=== PATIENT | male | born 1975 | race Caucasian/White ===

== ENCOUNTER 2022-08-09 13:02 | Outpatient (OUT) | payer BC, SELFPAY ==
[2022-08-09 14:46] VITALS: BMI 26.4
== END 2022-08-09 13:03 ==
LOC: DE 13:06
PROVIDERS: PCP Internal Medicine; Visit Provider Internal Medicine
DX: E11.9 Type 2 diabetes mellitus without complications (principal); Z79.4 Long term (current) use of insulin
CPT/HCPCS: G0108

== ENCOUNTER 2023-02-26 09:50 | Outpatient (OUT) | payer BC, SELFPAY ==
[2023-02-26 10:17] LABS: Estimated Average Glucose 140 mg/dL; Glycohemoglobin A1C 6.5 % (4.5-6.2)
== END 2023-02-26 09:51 | disposition home or self-care (01) ==
LOC: LAB 09:50
PROVIDERS: PCP Internal Medicine; Visit Provider Internal Medicine
DX: E11.65 Type 2 diabetes mellitus with hyperglycemia (principal)
CPT/HCPCS: 36415; 83036

== ENCOUNTER 2023-03-01 08:47 | Outpatient (OUT) | payer BC, SELFPAY ==
--- OUTSIDE RECORDS SUMMARY | 2023-03-01 08:56 | XMS_ITS | CCD ---
Author Name Unknown Address [address] [place] [address] Organization [facility] Care Team Providers Care Perinatal Instructor Name Role Phone Alvino Rudolph Unavailable Sandie Luther Unavailable DO Jack Ortega Primary Care Provider DO Geo Ray Attending Provider MD Sandie Luther Attending Provider Alvino Rudolph Unavailable Jack Ortega DO Primary Care Provider SANDIE LUTHER Attending Unavailable Jordan, Jack Primary Care Unavailable SANDIE LUTHER Admitting Unavailable SANDIE LUTHER Attending Unavailable Jordan, Jack Primary Care Unavailable SANDIE LUTHER Admitting Unavailable Alvino Rudolph Unavailable Jordan SINGH Jack E Primary Care Provider JORDAN JACK E Primary Care Unavailable Paige Rizzo Referring Unavailable VASHTI LLAMAS Attending Unavailable BALL, JACK E Primary Care Unavailable SHYANNE RODRÍGUEZ Referring Unavailable JORDAN, JACK E Primary Care Unavailable SHYANNE RODRÍGUEZ Attending Unavailable ALVINO RUDOLPH Referring Unavailable BALL, JACK E Primary Care Unavailable DO Jack Ortega Primary Care Provider DO Jack Ortega Attending Provider [phone] Bridget Laird Unavailable Unavailable Raad Cline Unavailable Unavailable Geo Ray Admitting UnavailGeo Calvo Attending Unavailabl e Ball, Jack Primary Care Unavailable Sandie Luther Admitting Unavailable LutherSandie E Attending Unavailable Ball, Jack Primary Care Unavailable Ball, Jack Admitting Unavailable Ball, Jack Primary Care Unavailable Ball, Jack Attending Unavailable NON STAFF Admitting Unavailable NON STAFF Attending Unavailable Jordan, Jack Primary Care Unavailable Alvino Rudolph Admitting Unavailable Alvino Rudolph Attending Unavailable Jordan, Jack Primary Care Unavailable Alvino Rudolph Admitting Unavailable Alvino Rudolph Attending Unavailable Ball, Jack Primary Care Unavailable NON STAFF Attending Provider Unavailable Kirsty Glez Unavailable Unavailable Ball, Jack Unavailable JESSICA, LEE ANN Admitting Unavailable JESSICA, LEE ANN Consulting Unavailable JESSICA, LEE ANN Attending Unavailable BALL, DR TORIBIO Primary Care Unavailable BALL, DR TORIBIO Admitting Unavailable BALL, DR TORIBIO Primary Care Unavailable BALL, DR TORIBIO Attending Unavailable BALL, DR TORIBIO Attending Unavailable BALL, DR TORIBIO Admitting Unavailable BALL, DR TORIBIO Primary Care Unavailable BALL, DR TORIBIO Consulting Unavailable JESSICA, LEE ANN Admitting Unavailable JESSICA, LEE ANN Consulting Unavailable JESSICA, LEE ANN Attending Unavailable BALL, DR TORIBIO Primary Care Unavailable BEDOCS, DO DEMETRIUS Escobar Referring Unavailable UNKNOWN, PCP Primary Care Unavailable Son, Dr. Raad Smith Attending Unavai lable Honpiero, Dr. Devin Gutierres Attending Unavailabl e UNKNOWN, PCP Primary Care Unavailable Son, Dr. Raad Smith Referring Unavai lable Honpiero, Dr. Devin Gutierres Attending Unavailabl e UNKNOWN, PCP Primary Care Unavailable Son, Dr. Raad Smith Referring Unavai lable PCP, Pt States None Referring Unavailable UNKNOWN, PCP Primary Care Unavailable Son, Dr. Raad Smith Attending Unavai labsteff UNKNOWN, PCP Primary Care Unavailable UNKNOWN, PCP Referring Unavailable Son, Dr. Raad Smith Attending Janyvasu Glez, Dr. Kirsty Boyd Attending Unavaila ble UNKNOWN, PCP Referring Unavailable UNKNOWN, PCP Primary Care Unavailable Ball DO, Jack Edward Primary Care Unavail able Feliciano Tillman Attending Unavailable Ball DO, Jack Edward Primary Care Unavail able Feliciano Tillman Attending Unavailable Ball DO, Jack Edward Primary Care Unavail able Feliciano Tillman Attending Unavailable Ball DO, Jack Edward Primary Care Unavail able Sebastian Rios PA-C Attending Unavail able Ball DO, Jack Edward Primary Care Unavail able Feliciano Tillman Attending Unavailable Ball DO, Jack Edward Primary Care Unavail able Sebastian Rios PA-C Attending Unavail able Ball DO, [facility] Unavail able Feliciano Tillman Attending Unavailable Ball DO, [facility] Unavail able Feliciano Tillman Attending Unavailable [place] Attending Unavailable Ball DO, [facility] Unavail able Ball DO, [facility] Consulting Unavail able Amber LEGER, Shivam Consulting Unavailable Ball DO, [facility] Unavail able Feliciano iTllman Attending Unavailable Feliciano Tillman Admitting Unavailable Ball DO, [facility] Consulting Unavail able Blanca DUPONTC, Sebastian Haas Attending Unavail able Brenda AYALA, Gloria Arias Referring Unava ilable Ball DO, [facility] Unavail able Blanca PAJadeC, Sebastian Haas Attending Unavail able Ball DO, [facility] Unavail able LayneFeliciano sol Attending Unavailable Ball DO, [facility] Unavail able [place] sol Attending Unavailable Ball DO, [facility] Unavail able LayneFeliciano sol Attending Unavailable Ball DO, [facility] Unavail able Blanca PA-C, Sebastian Haas Attending Unavail able Ball DO, [facility] Unavail able LayneFeliciano sol Attending Unavailable Ball DO, [facility] Unavail able Blanca PA-C, Sebastian Haas Attending Unavail able Allergies Allergy Classification Reported Allergen(s) Allergy Type Date of Onset Reaction(s) Facility (7 sources) No Alert Propensity to adverse reactions to drug 3 [facility] Medications Current Medications Medication Drug Class(es) Dates Sig (Normalized) Sig (Original) Accu-Chek Advantage Meter (16 sources) Start: 08-08-2022 Start: 08-08-2022 Accu-Chek Adva ntage Meter use as directed for 365 days July, Active ALPRAZolam 0.5 mg oral tablet (20 sources) Benzodiazepine Start: 02-17-2023 take 1 tablet by mouth every eight hours as needed for anxiety ALPRAZolam 0.5 MG TAKE 1 TABLET BY MOUTH EVERY 8 HOURS NEEDED FOR ANXIETY Feb, Active Start: 09-30-2020 take 1 tablet by herbert th every eight hours as needed for anxiety ALPRAZolam 0.5 MG TAKE 1 TABLET BY MOUTH EVERY 8 HOURS NEEDED FOR ANXIETY Aug, Active Start: 09-30-2020 take 0.5 mg by mouth once daily at bedtime Alprazolam Active 0.5 MG PO Daily at bedtime January 30, 2021 1:00am Comment on above: Take 0.5 mg by mouth . amitriptyline hydrochloride 25 mg oral tablet (17 sources) Tricyclic Antidepressant take 1 tablet by mouth every twenty-four hours Amitriptyline HCl 25 MG 1 tablet at bedtime Orally Once a day Active atropine sulfate 0.025 mg / diphenoxylate hydrochloride 2.5 mg oral tablet (20 sources) Anticholinergic, Cholinergic Muscarinic Antagonist, Antidiarrheal Start: 12-03-19 take 1 tablet by mouth every eight hours Lomotil 2.5-0.025 MG 1 tablet Orally tid Nov, Active Start: 12-03-2019 take 1 tablet by herbert th every eight hours Start: 12-03-2019 take 1 tablet by herbert th every six hours Lomotil 2.5-0.025 MG 1 tablet as needed Orally Four times a day for 30 days Nov, Active cefuroxime 250 mg oral tablet (5 sources) Cephalosporin Antibacterial Start: 02-04-2023 take 1 tablet by mouth every twelve hours Cefuroxime Axetil 250 MG 1 tablet Orally every 12 hrs for 7 days Jan, Active cetirizine hydrochloride 10 mg oral tablet (20 sources) Histamine-1 Receptor Antagonist Start: 07-18-2021 take 1 tablet by mouth once daily Cetirizine (Zyrtec) 10 mg Tablet Active 10 MG PO Daily July 18, 2021 12:00am ZyrTEC Allergy A ctive FreeStyle Maicol 2 [employer] (11 sources) Start: 08-28-2022 FreeStyle Libr e 2 [employer] Use to test home BS transcutaneous 6-8x daily for 365 days Aug, Active Start: 08-28-2022 FreeStyle Maicol 2 Sensor - (11 sources) Start: 08-28-2022 FreeStyle Libr e 2 Sensor - Use to test home BS transcutaneous 6-8x daily for 30 days Aug, Active Start: 08-28-2022 1.5 ml fremanezumab-vfrm 150 mg/ml auto-injector (19 sources) Ajovy 225 MG/1.5 ML as directed Subcutaneous monthly Active fremanezumab-vfr m (AJOVY AUTOINJECTOR) 225 mg/1.5 mL auto-injector 1 ml galcanezumab-gnlm 120 mg/ml prefilled syringe (8 sources) Start: 11-16-2022 inject 1 mL by subcutaneous injection every month Emgality 120 MG/ML 1 mL Subcutaneous monthly for 30 days Nov, Active 3 ml insulin glargine 100 unt/ml pen injector (17 sources) Insulin Analog Lantus SoloStar 100 UNIT/ML 50 units Subcutaneous q HS Active Lantus SoloStar 100 UNIT/ML 10 units, increase 2 units every 3 days until FBS Active 3 ml insulin lispro 100 unt/ml pen injector (16 sources) Insulin Analog Start: 08-07-2022 HumaLOG KwikPe n 100 UNIT/ML Per sliding scale Subcutaneous daily at largest meal for 30 days July, Active HumaLOG KwikPen 100 UNIT/ML 15-20 units Subcutaneous twice daily Active inject 1 dose by sub cutaneous injection once at mealtime HumaLOG KwikPen 100 UNIT/ML Per sliding scale, largest dose 6 units Subcutaneous daily at largest meal Active ozempic (0.25 or 0.5 mg/dose) 2 mg/3ml solution pen-injector (1 source) Start: 02-27-2023 Ozempic (0.25 or 0.5 MG/DOSE) 2 MG/3ML 0.25mg Subcutaneous weekly for 28 days Feb, Active SITagliptin 50 mg oral tablet (8 sources) Dipeptidyl Peptidase 4 Inhibitor Start: 10-02-2022 Januvia 50 MG as directed Orally Once a day Sep, Active Completed/Discontinued Medications Medication Drug Class(es) Dates Sig (Normalized) Sig (Original) acetaminophen 500 mg oral tablet (10 sources) acetaminophen (TYLENOL) 500 mg tablet Take 1,300 mg by mouth. 0 Active Comment on above: Take 1,300 mg by herbert th. atenolol 50 mg oral tablet (6 sources) beta-Adrenergic Hung Start: 01-30-2021 End: 07-18-2021 take 50 mg by mouth once daily Atenolol Discontinued 50 MG PO Daily January 30, 2021 1:00am July 18, 2021 11:38am baclofen 20 mg oral tablet (20 sources) gamma-Aminobutyr ic Acid-ergic Agonist Start: 12-05-2021 take 1 tablet by mouth once daily at bedtime baclofen (LIORESAL) 20 mg tablet TAKE 1 TABLET BY MOUTH EVERYDAY AT BEDTIME 0 12/05/2021 Active Start: 03-27-2019 End: 07-18-2021 take 20 mg by mouth at bedtime Baclofen Discontinued 2 0 MG PO Bedtime March 27, 2019 1:00am July 18, 2021 11:38am Baclofen Active Comment on above: TAKE 1 TABLET BY HERBERT EVERYDAY AT BEDTIME benazepril hydrochloride 10 mg oral tablet (20 sources) Angiotensin Converting Enzyme Inhibitor Start: take 1 tablet by mouth once daily benazepril (LOTENSIN) 10 mg tablet Take 10 mg by mouth once daily. 0 11/17/2021 Active Lotensin Active Comment on above: Take 10 mg by mouth once daily. benazepril / hydroCHLOROthiazide (10 sources) Thiazide Diuretic, Angiotensin Converting Enzyme Inhibitor benazepril/hydrochl orothiazide (LOTENSIN HCT ORAL) sugar-free cholestyramine resin 4000 mg powder for oral suspension (5 sources) Bile Acid Sequestrant Start: 03-27-19 End: 01-31-20 take 4 g by mouth once daily Cholestyramine-Aspa rtame Discontinued 4 GM PO Daily March 27, 2019 1:00am January 30, 2021 12:15pm Prevalite 4 GM 1 packet Orally Once a day Active Cholestyramine-Aspartame (Prevalite) 4 gram powder in packet (3 sources) Start: 01-30-2021 End: 07-18-2021 Cholestyramine-Aspartame (Prevalite) 4 gram powder in packet Discontinued 1 EACH PO Daily January 30, 2021 1:00am July 18, 2021 11:38am colesevelam hydrochloride 625 mg oral tablet (11 sources) Bile Acid Sequestrant Start: 01-01-2022 End: 01-25-2022 colesevelam (WELCHOL) 625 mg tablet START WITH 1 TABLET AT BEDTIME THEN INCREASE TO 2 TABLETS IF DIARRHEA PERSISTS 60 tablet 5 01/25/2022 Active Comment on above: Start with 1 tab PO QHS. Increase to 2 tabs if diarrhea persists. START WITH 1 TABLET AT BEDTIME THEN INCREASE TO 2 TABLETS IF DIARRHEA PERSISTS escitalopram 20 mg oral tablet (20 sources) Serotonin Reuptake Inhibitor Start: 08-27-2020 escitalopram oxalate (LEXAPRO) 20 mg tablet Take 20 mg by mouth. 0 08/27/2020 Active Lexapro Active Comment on above: Take 20 mg by mouth. etodolac 400 mg oral tablet (3 sources) Nonsteroidal Anti-inflammatory Drug Start: 2020 End: 2021 take 400 mg by mouth twice daily Etodolac Discontinued 400 MG PO Twice daily January 30, 2021 1:00am July 18, 2021 11:39am glucagon (rdna) 1 mg injection (7 sources) Antihypoglycemic Agent Start: 2022 inject 1 mg intravenously once glucagon (GLUCAGEN) 1 mg/mL injection Inject 1 mg intravenously one time only for 1 dose. For MRI Enterography, Inject 1 mg intravenously, as directed. Slow push at the appropriate time during MRI Scan 1 Each 0 03/13/2022 Active Comment on above: Inject 1 mg intraven ously one time only for 1 dose. For MRI Enterography, Inject 1 mg intravenously, as directed. Slow push at the appropriate time during MRI Scan loratadine 10 mg oral tablet (6 sources) Start: 2020 End: 2021 take 10 mg by mouth once daily Loratadine Discontinued 10 MG PO Daily January 30, 2021 1:00am July 18, 2021 11:39am omeprazole 40 mg delayed release oral capsule (20 sources) Proton Pump Inhibitor Start: 2021 End: 2022 take 1 capsule by mouth once daily omeprazole (PRILOSEC) 40 mg capsule Take 1 capsule by mouth once daily. 90 capsule 3 09/24/2022 Active Comment on above: Take 1 capsule by [facility] once daily. TAKE [address] [facility] ONCE DAILY Merpxehzi-Byghxp-Cw ropine-Scop (3 sources) Start: 2019 End: 2020 take 1 tablet by mouth three times daily Ylirmsuyh-Qsptxw-Jl ropine-Scop Discontinued 1 TAB PO Three times daily March 27, 2019 1:00am January 30, 2021 12:15pm pregabalin 50 mg oral capsule (8 sources) Start: 2021 take 1 capsule by mouth in the morning, then take 1 capsule by mouth at bedtime pregabalin (LYRICA) 50 mg capsule TAKE 1 CAPSULE (50 MG TOTAL) BY MOUTH IN THE MORNING AND 1 CAPSULE (50 MG TOTAL) BEFORE BEDTIME. 0 02/03/2022 Active Comment on above: TAKE 1 CAPSULE (50 M G TOTAL) BY MOUTH IN THE MORNING AND 1 CAPSULE (50 MG TOTAL) BEFORE BEDTIME. 24 hr propranolol hydrochloride 80 mg extended release oral capsule (3 sources) beta-Adrenergic Hung Start: 2019 End: 2020 take 80 mg by mouth once daily Propranolol Discontinued 80 MG PO Daily March 27, 2019 1:00am January 30, 2021 12:16pm rizatriptan 5 mg oral tablet (20 sources) Serotonin-1b and Serotonin-1d Receptor Agonist Start: 2021 rizatriptan (MAXALT) 5 mg tablet TAKE 1 TABLET BY MOUTH AT ONSET OF MIGRAINE MAY REPEAT 1 TAB IN 2HRS IF NEEDED 0 02/12/2022 Active take 1 tablet by herbert th every twenty-four hours Maxalt 10 MG 1 tablet Orally Once a day Active Comment on above: TAKE 1 TABLET BY HERBERT TH AT ONSET OF MIGRAINE MAY REPEAT 1 TAB IN 2HRS IF NEEDED rosuvastatin calcium 20 mg oral tablet (20 sources) HMG-CoA Reductase Inhibitor Start: 09-25-2020 rosuvastatin (CRESTOR) 20 mg tablet Take 20 mg by mouth. 0 09/25/2020 Active Crestor Active Comment on above: Take 20 mg by mouth. Problems Active Problems Problem Classification Problem Date Documented Da te Episodic/Chronic Abdominal pain (18 sources) Abdominal pain; Translations: [Unspecified abdominal pain] Episodic Anxiety disorders (20 sources) Generalized anxiety disorder; Translations: [Generalized anxiety disorder] Chronic Blindness and vision defects (6 sources) Visual disturbance; Translations: [Unspecified visual disturbance] Episodic Diabetes mellitus with complications (20 sources) Type 2 diabetes mellitus; Translations: [Type 2 diabetes mellitus with hyperglycemia] Onset: 3 Chronic Disorders of lipid metabolism (20 sources) Hypercholesterolemia; Translations: [Pure hypercholesterolemia, unspecified] Chronic Esophageal disorders (20 sources) Gastroesophageal reflux disease; Translations: [Gastro-esophageal reflux disease without esophagitis] Chronic Essential hypertension (20 sources) Essential hypertension; Translations: [Essential (primary) hypertension] Chronic Gastritis and duodenitis (6 sources) Gastritis; Translations: [Gastritis, unspecified, without bleeding] Onset: 2 Resolved: 2 Episodic Gastrointestinal hemorrhage (9 sources) Hematochezia; Translations: [Melena] Episodic Mood disorders (18 sources) Recurrent major depression in full remission; Translations: [Major depressive disorder, recurrent, in full remission] Chronic Neoplasms of unspecified nature or uncertain behavior (1 source) Neoplasm of uncertain behavior of skin; Translations: [Neoplasm of uncertain behavior of skin] Episodic Other aftercare (7 sources) Encounter for follow-up examination after completed treatment for conditions other than malignant neoplasm Onset: 3 Episodic Other aftercare (12 sources) Long-term current use of insulin; Translations: [USP (current) use of insulin] Episodic Other aftercare (5 sources) USP (current) use of insulin Episodic Other and unspecified benign neoplasm (1 source) Benign neoplasm of colon, unspecified Onset: 3 Episodic Other gastrointestinal disorders (9 sources) Irritable bowel syndrome; Translations: [Irritable bowel syndrome without diarrhea] Chronic Other gastrointestinal disorders (20 sources) Irritable bowel syndrome with diarrhea; Translations: [Irritable bowel syndrome with diarrhea] Chronic Other gastrointestinal disorders (4 sources) Irritable bowel syndrome with diarrhea Onset: 1 Resolved: 2 Chronic Other gastrointestinal disorders (10 sources) Diarrhea; Translations: [Diarrhea, unspecified] Episodic Other gastrointestinal disorders (9 sources) Swollen abdomen; Translations: [Abdominal distension (gaseous)] Episodic Other gastrointestinal disorders (12 sources) Dysphagia; Translations: [Dysphagia, unspecified] 03-27-2019 Episodic Other gastrointestinal disorders (3 sources) Diarrhea, unspecified; Translations: [Diarrhea, unspecified type] Onset: 1 Resolved: 2 Episodic Other gastrointestinal disorders (1 source) Esophageal dysphagia; Translations: [Other dysphagia] Episodic Other gastrointestinal disorders (1 source) Other dysphagia; Translations: [Esophageal dysphagia] Onset: 3 Episodic Other nervous system disorders (20 sources) Bilateral carpal tunnel syndrome; Translations: [Carpal tunnel syndrome, bilateral upper limbs] Chronic Other nervous system disorders (14 sources) Carpal tunnel syndrome of left wrist; Translations: [Carpal tunnel syndrome, left upper limb] Chronic Other nervous system disorders (1 source) Carpal tunnel syndrome, bilateral upper limbs Onset: 2 Resolved: 2 Chronic Other nervous system disorders (12 sources) Impairment of balance; Translations: [Other abnormalities of gait and mobility] Episodic Other nutritional; endocrine; and metabolic disorders (9 sources) Weight loss; Translations: [Abnormal weight loss] Episodic Other nutritional; endocrine; and metabolic disorders (20 sources) Body mass index 25-29 - overweight; Translations: [Body mass index (BMI) 25.0-25.9, adult] Episodic Other nutritional; endocrine; and metabolic disorders (1 source) Overweight Episodic Other skin disorders (1 source) Skin tag; Translations: [Other hypertrophic disorders of the skin] Episodic Other upper respiratory disease (3 sources) Allergic rhinitis due to pollen; Translations: [Allergic rhinitis due to pollen] Chronic Other upper respiratory disease (1 source) Allergic rhinitis due to pollen Chronic Other upper respiratory infections (1 source) Acute maxillary sinusitis, unspecified Episodic Otitis media and related conditions (2 sources) Unspecified Eustachian salpingitis, left ear; Translations: [Unspecified Eustachian tube disorder, left ear] Episodic Residual codes; unclassified (17 sources) Obstructive sleep apnea syndrome; Translations: [Obstructive sleep apnea (adult) (pediatric)] Chronic Residual codes; unclassified (9 sources) Obstructive sleep apnea (adult) (pediatric); Translations: [OBSTRUCTIVE SLEEP APNEA] Onset: 2 Chronic Residual codes; unclassified (1 source) Idiopathic hypersomnia with long sleep time; Translations: [IDIO HYPERSOMNIA W/LONG SLEEP TIME] Onset: 2 Chronic Residual codes; unclassified (3 sources) No current problems or disability; Translations: [Other specified conditions influencing health status] Onset: 3 Episodic Spondylosis; intervertebral disc disorders; other back problems (20 sources) Cervical spondylosis with radiculopathy; Translations: [Other spondylosis with radiculopathy, cervical region] Onset: 2 Resolved: 2 Chronic Unclassified (1 source) Pain in left hip; Translations: [Pain in left hip] Onset: 3 Unclassified (1 source) R13.10 - Dysphagia, unspecified; Translations: [R13.10 - Dysphagia, unspecified] Onset: 2 Unclassified (1 source) Z01.812 - Encounter for preprocedural laboratory examination; Translations: [Z01.812 - Encounter for preprocedural laboratory examination] Onset: 2 Past or Other Problems Problem Classification Problem Date Documented Da te Episodic/Chronic Esophageal disorders (5 sources) Esophageal disorders Other gastrointestinal disorders (1 source) Fecal urgency Onset: 01-19-2021 Resolved: 01-19-2021 Episodic Other nervous system disorders (1 source) Other abnormalities of gait and mobility Onset: 10-17-2021 Resolved: 10-17-2021 Episodic Other nervous system disorders (1 source) Ataxia, unspecified; Translations: [Ataxia, unspecified] Onset: 10-02-2021 Episodic Spondylosis; intervertebral disc disorders; other back problems (8 sources) Low back pain; Translations: [Low back pain, unspecified back pain laterality, unspecified chronicity, unspecified whether sciatica present] Onset: 10-17-2021 Resolved: 10-17-2021 Episodic Unclassified (2 sources) Low back pain, unspecified back pain laterality, unspecified chronicity, unspecified whether sciatica present M54.50 Onset: 10-17-2021 Resolved: 10-17-2021 Results Test Name Value Interpretation Reference Range Facility XR Spine Lumbosacral 2 or 3 [facility] 01-05-2023 XR Spine Lumbosacral 2 or 3 Views EXAM: XR Spine Lumbosacral 2 or 3 Views REASON FOR EXAM: Postop fusion. TECHNIQUE: 2 views. COMPARISON: CT lumbar spine dated 12/07/2022. Lumbar spine radiographs dated 12/07/2022. FINDINGS: Status post L5-S1 posterior fusion. No evidence of procedural complication. Vertebral body heights are preserved. Mild intervertebral disc space height loss at L4/L5 with endplate hypertrophy. No aggressive osseous lesions or bony demineralization. Cholecystectomy clips. IMPRESSION: Status post L5-S1 posterior fusion without evidence of procedural complication. Final Dictated by: Emeterio Wise DO Dictated DT/TM: 01/05/2023 6:47 am Signed by: Emeterio Wise DO Signed (Electronic Signature): 01/05/2023 7:34 am Transcribed DT/TM: 01/05/2023 6:49 (If Report Is Signed, Electronically Signed in Other Vendor System) Normal [facility] Neurosurgery Office/Clinic Elie maya 01-03-2023 Neurosurgery Office/Clinic Note Chief Complaint Patient is being seen for 1 mo post op. History of Present Illness One month post op follow up appointment s/p L5-S1 PLIF on 12/07/2022 No complaint. Off narcotic. He is happy with the result of surgery. No incision concerns. He likes wearing the LSO. He would like to return to work if he can work remotely the next month. 12/24/2022 Visit: He is here for 2-week postoperative appointment. He is s/p L5-S1 PLIF on 12/07/2022. He is doing very well since surgery. The low back pain has resolved. The legs feel much better. He stopped Percocet, developed a rash. He is only using Tylenol for pain, states he does not need anything else. No bladder or bowel issues, no fevers, no drainage from the incision. He feels about 80% improvement so far, mentioned several times that he is very happy he had the surgery. Review of Systems General Adult ROS Fatigue: Yes Weakness: Yes Cardiovascular EENMT Gastrointestinal Genitourinary Hematologic/Lymphatic Musculoskeletal Back pain: Yes Other Musculoskeletal: No Neurological Numbness: No Psychiatric Respiratory Skin Physical Exam Vitals & Measurements HR: 72 (Peripheral) BP: 126/76 HT: 190.5 cm WT: 93.6 kg WT: 93.6 kg (Dosing) BMI: 25.79 Additional Vitals BP Position/Location: Sitting, Left arm General: Alert and oriented, well nourished, no acute distress Eye: PERRL, EOMI, normal conjunctiva HENT: Normocephalic, clear tympanic membranes, normal hearing, moist oral mucosa, no scleral icterus, no sinus tenderness Neck: Supple, non-tender, no carotid bruits, no JVD, no lymphadenopathy Lungs: Clear to auscultation and percussion, non-labored respiration Heart: Normal rate, regular rhythm, no murmur, gallop or edema Abdomen: Soft, non-tender, non-distended, normal bowel sounds, no masses]. Musculoskeletal: [Normal range of motion and strength, no tenderness or swelling Skin: Skin is warm, dry and pink, no rashes or lesions Psychiatric: Cooperative, appropriate mood and affect Neurologic: EOMI, PERRLA, TML, FS, No drift 5/5 hailey UE strength 5/5 hailey LE strength incision looks great Clonus absent Assessment/Plan Assessment: 1. s/p L5-S1 PLIF 12/07/2022 2. pre op MRI Lumbar 10/27/2021: L5-S1 disc bulge with severe bilateral neuroforaminal stenosis with mass effect on the L5 nerves. L4-5 disc bulge with mild left, moderate right foraminal narrowing. T12-L1 small disc protrusion with mild central canal stenosis. 3. HTN, depression, anxiety, asthma, recent melanoma 4. Chronic neck pain 5. New diagnosis of diabetes - on Lantus, Januvia and insulin ss - last A1C 7.7 Plan: Return to work (remote work for the next month) Follow up in 2 months with lumbar xrays: ap/lat/flex/ex. Time Spent with the Patient I have personally spent 20 minutes on this date, directly related to today's patient visit, including pre and post visit work, for this date of service. Time listed does not include time spent on separately billable services. Problem List/Past Medical History Ongoing Abnormal EKG Acid reflux Adverse effect of anesthesia Anxiety Anxiety disorder Asthma Back pain Carpal tunnel syndrome Depression Diabetes Hip pain Hypercholesteremia Hypertension Irritable bowel syndrome Melanoma Migraines Neck pain DIANA (obstructive sleep apnea) PONV (postoperative nausea and vomiting) Sacroiliac joint pain Seasonal allergies Spinal stenosis in cervical region Spinal stenosis of lumbar region Spondylosis Type 1 diabetes mellitus Historical Chest pain Palpitation Pericarditis Procedure/Surgical History hydrocele excision/repair (2007) Inguinal Hernia Repair (2007) Hydrocelectomy (09/09/2007) Repair of right inguinal hernia (09/09/2007) Lymph node dissection (2011) REMOVAL OF GALLBLADDER (2011) Umbilical hernia repair (2011) Excision of Right Inguinal Lymphatic, Open Approach, Diagnostic (09/09/2011) Injection steroid EPI 1 with sedation (11/30/2016) Injection sacroiliac nerve (12/21/2016) Injection sacroiliac nerve: left (01/18/2017) Radiofrequency ablation spinal (03/15/2017) Injection block nerve medial branch (11/04/2020) Injection block nerve medial branch (12/16/2020) Radiofrequency ablation spinal (01/27/2021) Injection block sacroiliac joint (01/12/2022) Colonoscopic polypectomy (03/13/2022) Endoscopy of upper gastrointestinal tract and dilation of esophageal stricture (03/13/2022) Injection block epidural caudal steroid (04/20/2022) INJECTION TREATMENT OF NERVE (06/07/2022) Injection spine transforaminal (06/08/2022) MOHS 1 STAGE H/N/HF/G (06/28/2022) Fusion Spine Lumbar Posterior with Navigation (12/07/2022) Medications baclofen 20 mg oral tablet, 20 mg= 1 tabs, Oral, HS (at bedtime) benazepril 10 mg oral tablet, 10 mg= 1 tabs, Oral, qAM Crestor 20 mg oral tablet, 20 mg= 1 tabs, Oral, HS (at bedtime) docusate sodium 100 mg oral capsule, 100 mg, Oral, B (more content not included)... Normal [facility] Neurosurgery Office/Clinic N oteon 12-24-2022 Neurosurgery Office/Clinic Note Chief Complaint Patient is being seen for 2 week post op. History of Present Illness He is here for 2-week postoperative appointment. He is s/p L5-S1 PLIF on 12/07/2022. He is doing very well since surgery. The low back pain has resolved. The legs feel much better. He stopped Percocet, developed a rash. He is only using Tylenol for pain, states he does not need anything else. No bladder or bowel issues, no fevers, no drainage from the incision. He feels about 80% improvement so far, mentioned several times that he is very happy he had the surgery. Review of Systems General Adult ROS Fatigue: Yes Weakness: Yes Cardiovascular EENMT Gastrointestinal Genitourinary Hematologic/Lymphatic Musculoskeletal Back pain: No Other Musculoskeletal: No Neurological Numbness: No Psychiatric Respiratory Skin Physical Exam Vitals & Measurements HR: 72 (Peripheral) BP: 132/74 HT: 190.5 cm WT: 93.6 kg WT: 93.6 kg (Dosing) BMI: 25.79 Additional Vitals BP Position/Location: Sitting, Right arm General: Alert and oriented, well nourished, no acute distress. Eye: Normal conjunctiva, no scleral icterus. HENT: Normocephalic, atraumatic, oral mucosa pink and moist. Pulmonary: Non-labored respiration Skin: Normal temperature, turgor, and texture; no rashes. Psychiatric: Appropriate judgment and insight, appropriate mood and affect. NEURO EXAM: Pupils are equal Face is symmetric. Hearing is intact. Motor: Lower Extremity Strength: 5/5 Gait: Posture is normal. Gait is steady. Incision: Clean, dry, intact with nena Hortense removed, no surrounding erythema or edema, no signs of infection Assessment/Plan Assessment: 1. S/p L5-S1 PLIF 12/07/2022 2. pre op MRI Lumbar 10/27/2021: L5-S1 disc bulge with severe bilateral neuroforaminal stenosis with mass effect on the L5 nerves. L4-5 disc bulge with mild left, moderate right foraminal narrowing. T12-L1 small disc protrusion with mild central canal stenosis. 3. HTN, depression, anxiety, asthma, recent melanoma 4. Chronic neck pain 5. New diagnosis of diabetes - on Lantus, Januvia and insulin ss - last A1C 7.7 Plan: 1. F/u with Dr Tillman as scheduled with XR lumbar 2. Continue LSO, light activity 3. No lifting >5-10 pounds Time Spent with the Patient I have personally spent 18 minutes on this date, directly related to today's patient visit, including pre and post visit work, for this date of service. Time listed does not include time spent on separately billable services. Problem List/Past Medical History Ongoing Abnormal EKG Acid reflux Adverse effect of anesthesia Anxiety Anxiety disorder Asthma Back pain Carpal tunnel syndrome Depression Diabetes Hip pain Hypercholesteremia Hypertension Irritable bowel syndrome Melanoma Migraines Neck pain DIANA (obstructive sleep apnea) PONV (postoperative nausea and vomiting) Sacroiliac joint pain Seasonal allergies Spinal stenosis in cervical region Spinal stenosis of lumbar region Spondylosis Type 1 diabetes mellitus Historical Chest pain Palpitation Pericarditis Procedure/Surgical History hydrocele excision/repair (2007) Inguinal Hernia Repair (2007) Hydrocelectomy (09/09/2007) Repair of right inguinal hernia (09/09/2007) Lymph node dissection (2011) REMOVAL OF GALLBLADDER (2011) Umbilical hernia repair (2011) Excision of Right Inguinal Lymphatic, Open Approach, Diagnostic (09/09/2011) Injection steroid EPI 1 with sedation (11/30/2016) Injection sacroiliac nerve (12/21/2016) Injection sacroiliac nerve: left (01/18/2017) Radiofrequency ablation spinal (03/15/2017) Injection block nerve medial branch (11/04/2020) Injection block nerve medial branch (12/16/2020) Radiofrequency ablation spinal (01/27/2021) Injection block sacroiliac joint (01/12/2022) Colonoscopic polypectomy (03/13/2022) Endoscopy of upper gastrointestinal tract and dilation of esophageal stricture (03/13/2022) Injection block epidural caudal steroid (04/20/2022) INJECTION TREATMENT OF NERVE (06/07/2022) Injection spine transforaminal (06/08/2022) MOHS 1 STAGE H/N/HF/G (06/28/2022) Fusion Spine Lumbar Posterior with Navigation (12/07/2022) Medications baclofen 20 mg oral tablet, 20 mg= 1 tabs, Oral, HS (at bedtime) benazepril 10 mg oral tablet, 10 mg= 1 tabs, Oral, qAM Crestor 20 mg oral tablet, 20 mg= 1 tabs, Oral, HS (at bedtime) docusate sodium 100 mg oral capsule, 100 mg, Oral, BID Elavil 25 mg oral tablet, 25 mg= 1 tabs, Oral, HS (at bedtime) Emgality Prefilled Syringe, Subcutaneous, qMonth HumaLOG KwikPen 100 units/mL injectable solution Januvia 50 mg oral tablet, 50 mg= 1 tabs, Oral, Daily Lantus Solostar Pen 100 units/mL subcutaneous solution, 50 units, Subcutaneous, HS (at bedtime) Lexapro 20 mg oral tablet, 20 mg= 1 tabs, Oral, HS (at bedtime) Maxalt 10 mg oral tablet, 10 mg= 1 tabs, Oral, Daily, PRN omeprazole 40 mg oral delayed re (more content not included)... Normal [facility] Provider Letteron 12-24-2022 Provider Letter Jack Ortega DO [facility] [place] [address] Re: Donell Dumont Date of Visit: 12/24/2022 Dear Jack Ortega DO, Thank you for allowing me to contribute to the care of your patient: Donell Dumont. Attached is my office note where you will find my assessment and recommendations from our encounter. My office?s contact information: [facility] [address], [phone] Let me know if you have any questions or concerns. Sincerely, LUCY Gonzalez Providers: The following document(s) were included in the letter: December 24, 2022 10:17:25 EDT - (12/24/2022) Neurosurgery Office Visit Note Normal [facility] Inpatient Clinical Summaryon 12-09-2022 Inpatient Clinical Summary [address] [address] Clinical Summary Person Information Name: Donell Dumont Age: 47 Years : 1975 Sex: Male PCP: Jack Ortega DO Marital Status: Phone: PCP: [phone] Race: White Ethnicity: Not or Language: Haitian Visit Id: Visit Reason: Speciality: Acuity: Enc Type: Inpatient Med Service: Surgery Arrival: 12/07/2022 06:51:57 Discharge: Dispo Type: Address: [address] [place] [address] [address] [place] [phone] Diagnosis: Status post lumbar spinal fusion Discharged To: Home Treatments: Devices/Equipment: Professional Skilled Services: Special Services and Community Resources: Mode of Discharge Transportation: Discharge Orders Diet Instruction ADA Diet Discharge Special Instructions You may drive when you are no longer taking pain medication Discharge Special Instructions Do not resume Aspirin, Plavix (Clopidogrel), Coumadin (Warfarin/Jantoven) and other blood thinners for 7 days, but you may resume all other medications. Discharge Special Instructions You may shower, but keep incision site dry for one week. Discharge Wound Care Remove dressing one week after discharge. Replace dressing as needed. Allergies No Known Allergies Functional Status: Sensory Deficits: None History of Falls: None Mobility Assistance Prior to Admission: ADLs: Minimal assistance Gait: Steady Ambulation Assist: Assistive Device: Gait belt, Walker Special Orthopedic Devices: Brace Current Level of Assistance for Self-Care/Mobility: Cognitive Status: Orientation: Orientation Assessment Oriented x 4 Level of Consciousness: Alert Characteristics of Speech: Clear Aspiration Risk: None Affect/Behavior: Appropriate, Calm Laboratory or Other Results This Visit (last charted value for your 12/07/2022 visit) Hematology 12/08/2022 4:07 AM WBC: 10.4 x10 RBC: 4.48 x10 Neutro Auto: 79.4 % -- Normal range between ( 47.2 and 70.8 ) Lymph Auto: 13.5 % -- Normal range between ( 27.2 and 40.8 ) [place] Auto: 6.9 % -- Normal range between ( 4.7 and 13.9 ) Eos Auto: 0.1 % -- Normal range between ( 0.0 and 6.1 ) Basophil Auto: 0.1 % -- Normal range between ( 0.0 and 1.2 ) Baso Absolute: 0.0 x10 MCV: 85.7 fL -- Normal range between ( 80.0 and 100.0 ) MCHC: 34.5 % -- Normal range between ( 31.0 and 37.0 ) Lymph Absolute: 1.4 x10 Hct: 38.4 % -- Normal range between ( 41.0 and 53.0 ) [place] Absolute: 0.7 x10 MCH: 29.6 pg -- Normal range between ( 27.0 and 35.0 ) Neutro Absolute: 8.3 x10 Hgb: 13.2 g/dL -- Normal range between ( 13.5 and 17.5 ) Mean Platelet Volume: 9.2 fL -- Normal range between ( 6.7 and 10.6 ) Platelet: 239 x10 Eos Absolute: 0.0 x10 RDW: 14.0 % -- Normal range between ( 11.6 and 14.8 ) Chemistry 12/08/2022 4:07 AM Creatinine Lvl: 0.79 mg/dL -- Normal range between ( 0.61 and 1.24 ) BUN: 16 mg/dL -- Normal range between ( 8 and 26 ) Glucose Lvl: 131 mg/dL -- Normal range between ( 70 and 99 ) Potassium Lvl: 3.8 mmol/L -- Normal range between ( 3.4 and 4.8 ) Sodium Lvl: 137 mmol/L -- Normal range between ( 133 and 142 ) Calcium Lvl: 8.1 mg/dL -- Normal range between ( 8.5 and 10.3 ) Chloride: 106 mmol/L -- Normal range between ( 98 and 110 ) CO2: 26 mmol/L -- Normal range between ( 22 and 32 ) Anion Gap: 9 -- Normal range between ( 7 and 17 ) Estimated GFR: >60 mL/min/1.73m? BUN Crea Ratio: 20.3 -- Normal range between ( 10.0 and 20.0 ) Blood Bank 11/23/2022 11:58 AM ABO/Rh: O POS Antibody Screen: Negative ABSC POC Testing 12/09/2022 7:27 AM POC Gluc Random: 92 mg/dL -- Normal range between ( 70 and 99 ) Computed Tomography 12/07/2022 12:[address] Spine Lumbar w/o Contrast: CT Spine Lumbar w/o Contrast Diagnostic Radiology 12/07/2022 12:00 PM XR Spine Lumbosacral 4 Views + in OR: XR Spine Lumbosacral 4 Views + in OR Measurements: Height: Weight: Blood Pressure: 116 mmHg / BMI: Respiratory: Respirations: Unlabored, Quiet Respiratory Symptoms: None Cardiovascular: Heart Sounds: Heart Rhythm: Regular Gastrointestinal: GI Symptoms: Bowel Sounds: Present Vital Signs: Temp Axillary: Temp Temporal Artery: 36.6 degC Temp Oral: 36.5 degC Temp Rectal: Apical Heart Rate: Peripheral Pulse Rate: 87 bpm Heart Rate: 72 bpm Respiratory Rate: 16 br/min Diet Diet: Feeding Tolerance: Appetite: Good Sundar Assessment: 20 Procedures No Procedures Documented Immunizations No Immunizations Documented This Visit HERE ARE THE MEDICATION CHANGES THAT OCCURRED DURING YOUR HOSPITAL STAY New Medications [id number], [address], [place] [id number], [phone] docusate (docusate sodium 100 mg oral capsule) 100 Milligram Oral (given by mouth) 2 times a day. Refills: 0. Last Dose: ____ oxyCODO (more content not included)... Normal [facility] Neurosurgery Progress Noteon 12-09-2022 Neurosurgery Progress Note Subjective no leg pain no abd pain Objective 30cc Vitals & Measurements T: 36.5 ?C (Oral) HR: 87 (Peripheral) RR: 16 BP: 116/75 SpO2: 94% HT: 190.5 cm HT: 191 cm WT: 93.6 kg BMI: 26.45 BMI: 26.32 Additional Vitals No qualifying data available. Lab Results Microbiology - Current Encounter No qualifying data available. Diagnostic Results Diagnostic Radiology XR Spine Lumbosacral 4 Views + in OR 12/07/22 13:45:34 [address] CT images of the lumbar spine on 12/07/2022 Findings: limited intraoperative fluoroscopic and CT images obtained during lumbar spine surgery done by Dr. Tillman . Total fluoro time for this procedure is 4 seconds. This dictation is for documentation only. Please refer to the OR report for details. Signed By: Bonnie Stokes MD Computed Tomography CT Spine Lumbar w/o Contrast 12/07/22 13:43:46 IMPRESSION: Postoperative changes compatible with posterior decompression, posterior and interbody fusion at L5-S1 in satisfactory alignment. Signed By: Bonnie Stokes MD Physical Exam 5/5 hailey LE strength Medications Inpatient acetaminophen, 650 mg, Oral, q6hr, PRN ascorbic acid, 500 mg, Oral, q8hr baclofen, 20 mg, Oral, HS (at bedtime) benazepril, 10 mg, Oral, qAM ceFAZolin, 2 g= 50 mL, IV Piggyback, q8hr Crestor, 20 mg, Oral, HS (at bedtime) Dextrose 10% in Water IV Piggyback, 125 mL, IV Piggyback, As Indicated, PRN docusate sodium, 100 mg, Oral, BID Elavil, 25 mg, Oral, HS (at bedtime) famotidine, 20 mg, Oral, BID glucagon, 1 mg, Subcutaneous, As Indicated, PRN insulin aspart MEDIUM dose sliding scale BMI 26-30, See Comments, Subcutaneous, ACHS Lexapro, 20 mg, Oral, HS (at bedtime) linagliptin, 5 mg, Oral, Daily omeprazole, 40 mg, Oral, Daily ondansetron, 4 mg= 2 mL, IV Push, q4hr, PRN oxyCODONE-acetaminoph en 5 mg-325 mg oral tablet, 1 tabs, Oral, q4hr, PRN oxyCODONE-acetaminoph en 5 mg-325 mg oral tablet, 2 tabs, Oral, q4hr, PRN Xanax, 0.5 mg, Oral, TID, PRN ZyrTEC, 10 mg, Oral, qAM Assessment/Plan Status post lumbar spinal fusion assessment: 1. pod 2 L5-S1 PLIF 12/07/22 2. pre op MRI Lumbar 10/27/2021: L5-S1 disc bulge with severe bilateral neuroforaminal stenosis with mass effect on the L5 nerves. L4-5 disc bulge with mild left, moderate right foraminal narrowing. T12-L1 small disc protrusion with mild central canal stenosis. 3. HTN, depression, anxiety, asthma, recent melanoma 4. Chronic neck pain 5. New diagnosis of diabetes - on Lantus, Januvia and insulin ss - last A1C 7.7 Plan: d/c hemovac d/c home Orders: Communication Order Communication Order Electronically signed by Feliciano Tillman MD 12/09/22 06:30 EDT Normal [facility] POC Glucose Randomon 023 Glucose [Mass/Vol] 92 mg/dL Normal 70-99 [facility] Comment on above: Performed By: #### C [id number] #### [place] [address] .eGFRon 12-08-2022 GFR/1.73 sq M.predicted MDRD (S/P/Bld) [Vol rate/Area] mL/min/{1.73_m2} Normal >=60 [facility] Comment on above: Result Comment: [facility] have implemented the eGFR calculation approach that does not have a coefficient for race and that conforms to the NKF-ASN Task Force Recommendations. Stages of Chronic Kidney Disease GFR Stage 3a Mild to moderate loss of kidney function 59 to 45 Stage 3b Moderate to severe loss of kidney function 44 to 33 Stage 4 Severe loss of kidney function 29 to 15 Stage 5 Kidney failure Less than 15 GFR calculated using the CKD-Epi Creatinine Equation (2020): eGFR = 142 X min(SCr/?, 1)? X max(SCr /?, 1)-1.200 X 0.9938Age X 1.012 [if female] Abbreviations/Units: eGFR (estimated glomerular filtration rate) = mL/min/1.73 m2 SCr (standardized serum creatinine) = mg/dL ? = 0.7 (females) or 0.9 (males) ? = -0.241 (females) or -0.302 (males) min = indicates the minimum of SCr/? or 1 max = indicates the maximum of SCr/? or 1 Age = years Performed By: #### A SA #### [address] [address] Basic Metabolic Profileon Anion gap [Moles/Vol] 9 mmol/L Normal 7-17 [facility] Comment on above: Performed By: #### C OMP #### [address] [address] Calcium [Mass/Vol] 8.1 mg/dL Low 8.5-10.3 [facility] Comment on above: Performed By: #### C OMP #### [address] [address] Chloride [Moles/Vol] 106 mmol/L Normal 98-110 [facility] Comment on above: Performed By: #### C OMP #### [address] [address] CO2 [Moles/Vol] 26 mmol/L Normal 22-32 [facility] Comment on above: Performed By: #### C OMP #### [address] [address] Creatinine [Mass/Vol] 0.79 mg/dL Normal 0.61-1.24 [facility] Comment on above: Performed By: #### C OMP #### [address] [address] Glucose [Mass/Vol] 131 mg/dL High 70-99 [facility] Comment on above: Performed By: #### C OMP #### [address] [address] Potassium [Moles/Vol] 3.8 mmol/L Normal 3.4-4.8 [facility] Comment on above: Performed By: #### C OMP #### [address] [address] Sodium [Moles/Vol] 137 mmol/L Normal 133-142 [facility] Comment on above: Performed By: #### C OMP #### [address] [address] Urea nitrogen [Mass/Vol] 16 mg/dL Normal 8-26 [facility] Comment on above: Performed By: #### C OMP #### [address] [address] Urea nitrogen/Creatinine [Mass ratio] 20.3 mg/mg High 10.0-20.0 [facility] Comment on above: Performed By: #### C OMP #### [address] [address] CBC w/ Diffon 12-08-2022 Erythrocyte distribution width (RBC) [Ratio] 14.0 % Normal 11.6-14.8 [facility] Comment on above: Performed By: #### C [id number] #### [address] [address] Hematocrit (Bld) [Volume fraction] 38.4 % Low 41.0-53.0 [facility] Comment on above: Performed By: #### C [id number] #### [address] [address] Hemoglobin (Bld) [Mass/Vol] 13.2 g/dL Low 13.5-17.5 [facility] Comment on above: Performed By: #### C [id number] #### [address] [address] MCH (RBC) [Entitic mass] 29.6 pg Normal 27.0-35.0 [facility] Comment on above: Performed By: #### C [id number] #### [address] [place] [address] MCHC 34.5 % Normal 31.0-37.0 [facility] Comment on above: Performed By: #### C [id number] #### [address] [address] MCV (RBC) [Entitic vol] 85.7 fL Normal 80.0-100.0 [facility] Comment on above: Performed By: #### C [id number] #### [address] [address] Platelet 239 x10*3/mcL Normal 150-450 [facility] Comment on above: Performed By: #### C [id number] #### [address] [address] Platelet mean volume (Bld) [Entitic vol] 9.2 fL Normal 6.7-10.6 [facility] Comment on above: Performed By: #### C [id number] #### [place] [id number] RBC 4.48 x10*6/mcL Normal 4.30-5.80 [facility] Comment on above: Performed By: #### C [id number] #### [address] [address] WBC 10.4 x10*3/mcL Normal 4.5-11.0 [facility] Comment on above: Performed By: #### C [id number] #### [place] [id number] Consultation Note - Generico n 12-08-2022 Consultation Note - Generic Assessment/Plan Assessment: Diabetes mellitus type 2 (A1c 7.7), currently controlled Status post lumbar spinal fusion, POD 0, L5-S1 PLIF (12/07/2022) Abnormal MRI of lumbar spine in 10/27/2021, leading to the above-mentioned Chronic neck and back pain, due to the above-mentioned Other comorbidities: ? Anxiety/depression, asthma, HTN, HLD, IBS, and recent melanoma. Plan: Patient safe for 6 floor Fall precautions on board Ambulate to chair ADA diet ordered Glucose monitoring ACHS Continuing linagliptin and sliding scale insulin (medium dose) Daily weight and strict I/O IV hydration per neurosurgical team Pain/nausea/fever control medications on board per neurosurgical team Home medications reviewed and appropriate ones restarted PT/OT to evaluate and treat per neurosurgical recommendations Neurosurgery's Dr. Tillman treating postop concerns. Intends to discharge patient on Saturday. We will follow along with neurosurgery Time spent: 30 minutes in total. Code Status: Full Resuscitation Plan - Orders Patient Tray, clear liquid tray, 12/07/22 15:11:00 EDT Blood Glucose Monitoring POC, 12/08/22 15:03:00 EDT, ACHS Communication Order, 12/08/22 12:05:00 EDT, Convert Hemovac drain to gravity at 1700, 12/08/22 12:05:00 EDT, 12/08/22 12:05:00 EDT Communication Order, 12/08/22 12:05:00 EDT, heplock IV, 12/08/22 12:05:00 EDT, 12/08/22 12:05:00 EDT Occupational Therapy Additional Treatment Inpatient, 12/08/22 12:39:15 EDT Physical Therapy Additional Treatment Inpatient, 12/08/22 12:26:47 EDT Subjective Visited Mr. Dumont today and examined him at bedside. He is seated in his bedside recliner and AAOx3 feeling much better today. Is pleased that his sugars been well controlled. Not complaining of anything new. Postop pain tolerable. No adverse overnight events reported to me. Vitals & Measurements T: 36.7 ?C (Oral) HR: 72 (Monitored) RR: 16 BP: 116/72 SpO2: 94% HT: 190.5 cm HT: 191 cm WT: 98.6 kg BMI: 26.45 BMI: 26.32 Additional Vitals No qualifying data available. Objective Physical Exam General: AAOx3, patient appears in no acute cardiorespiratory distress. Eye: Normal conjunctiva. HENT: Normocephalic, moist oral mucosa, no scleral icterus. Neck: Supple, non-tender, no lymphadenopathy. Lungs: Clear to auscultation, no crepitations or wheeze. Heart: RRR. S1-S2 is normal. No rubs or gallops. Abdomen: Soft, non-tender, non-distended, normal bowel sounds. Extremities: No cyanosis, clubbing or edema. Skin: Surgical wounds well dressed and dry. Neurologic: Patient does not have any focal deficits. Psychiatric: Calm and cooperative. Lab Results Labs (Last four charted values) WBC 10.4 (SEP 30) Hgb L 13.2 (SEP 30) Hct L 38.4 (SEP 30) Plt 239 (SEP 30) Na 137 (SEP 30) K 3.8 (SEP 30) CO2 26 (SEP 30) Cl 106 (SEP 30) Cr 0.79 (SEP 30) BUN 16 (SEP 30) Microbiology - Current Encounter No qualifying data available. Diagnostic Results Diagnostic Radiology XR Spine Lumbosacral 4 Views + in OR 12/07/22 13:45:34 Intraoperative fluoroscopic and CT images of the lumbar spine on 12/07/2022 Findings: limited intraoperative fluoroscopic and CT images obtained during lumbar spine surgery done by Dr. Tillman . Total fluoro time for this procedure is 4 seconds. This dictation is for documentation only. Please refer to the OR report for details. Signed By: Bonnie Stokes MD Computed Tomography CT Spine Lumbar w/o Contrast 12/07/22 13:43:46 IMPRESSION: Postoperative changes compatible with posterior decompression, posterior and interbody fusion at L5-S1 in satisfactory alignment. Signed By: Bonnie Stokes MD Medications Inpatient acetaminophen, 650 mg, Oral, q6hr, PRN ascorbic acid, 500 mg, Oral, q8hr baclofen, 20 mg, Oral, HS (at bedtime) benazepril, 10 mg, Oral, qAM ceFAZolin, 2 g= 50 mL, IV Piggyback, q8hr Crestor, 20 mg, Oral, HS (at bedtime) Dextrose 10% in Water IV Piggyback, 125 mL, IV Piggyback, As Indicated, PRN docusate sodium, 100 mg, Oral, BID Elavil, 25 mg, Oral, HS (at bedtime) famotidine, 20 mg, Oral, BID glucagon, 1 mg, Subcutaneous, As Indicated, PRN insulin aspart MEDIUM dose sliding scale BMI 26-30, See Comments, Subcutaneous, ACHS Lexapro, 20 mg, Oral, HS (at bedtime) linagliptin, 5 mg, Oral, Daily omeprazole, 40 mg, Oral, Daily ondansetron, 4 mg= 2 mL, IV Push, q4hr, PRN oxyCODONE-acetaminoph en 5 mg-325 mg oral tablet, 1 tabs, Oral, q4hr, PRN oxyCODONE-acetaminoph en 5 mg-325 mg oral tablet, 2 tabs, Oral, q4hr, PRN Xanax, 0.5 mg, Oral, TID, PRN ZyrTEC, 10 mg, Oral, qAM Electronically signed by Shivam Clark MD 12/08/22 15:04 EDT Normal [facility] Diff Autoon 12-08-2022 Baso Absolute 0.0 x10*3/mcL Normal 0.0-0.2 [facility] Comment on above: Performed By: #### C [id number] #### [address] [address] Basophils/100 WBC (Bld) 0.1 % Normal 0.0-1.2 [facility] Comment on above: Performed By: #### C [id number] #### [id number] [place] [address] Eos Absolute 0.0 x10*3/mcL Normal 0.0-0.4 [facility] Comment on above: Performed By: #### C [id number] #### [id number] [place] [address] Eosinophils/100 WBC (Bld) 0.1 % Normal 0.0-6.1 [facility] Comment on above: Performed By: #### C [id number] #### [id number] [place] [address] Lymph Absolute 1.4 x10*3/mcL Normal 1.0-4.8 [facility] Comment on above: Performed By: #### C [id number] #### [address] [address] Lymphocytes/100 WBC (Bld) 13.5 % Low 27.2-40.8 [facility] Comment on above: Performed By: #### C [id number] #### [address] [address] [place] Absolute 0.7 x10*3/mcL Normal 0.3-1.1 [facility] Comment on above: Performed By: #### C [id number] #### [address] [address] Monocytes/100 WBC (Bld) 6.9 % Normal 4.7-13.9 [facility] Comment on above: Performed By: #### C [id number] #### [address] [address] Neutro Absolute 8.3 x10*3/mcL High 1.8-7.7 [facility] Comment on above: Performed By: #### C [id number] #### [address] [address] Neutro Auto 79.4 % High 47.2-70.8 [facility] Comment on above: Performed By: #### C [id number] #### [address] [address] Neurosurgery Progress Noteon 12-08-2022 Neurosurgery Progress Note Subjective no complaint he has a wheeled walker at home no leg pain Objective hemovac output 60cc Vitals & Measurements T: 36.7 ?C (Oral) HR: 72 (Monitored) RR: 16 BP: 116/72 SpO2: 94% HT: 190.5 cm HT: 191 cm WT: 98.6 kg BMI: 26.45 BMI: 26.32 Additional Vitals No qualifying data available. Lab Results Microbiology - Current Encounter No qualifying data available. Diagnostic Results Diagnostic Radiology XR Spine Lumbosacral 4 Views + in OR 12/07/22 13:45:34 [address] images of the lumbar spine on 12/07/2022 Findings: limited intraoperative fluoroscopic and CT images obtained during lumbar spine surgery done by Dr. Tillman . Total fluoro time for this procedure is 4 seconds. This dictation is for documentation only. Please refer to the OR report for details. Signed By: Bonnie Stokes MD Computed Tomography CT Spine Lumbar w/o Contrast 12/07/22 13:43:46 IMPRESSION: Postoperative changes compatible with posterior decompression, posterior and interbody fusion at L5-S1 in satisfactory alignment. Signed By: Bonnie Stokes MD Physical Exam 07/13 hailey LE strength Medications Inpatient acetaminophen, 650 mg, Oral, q6hr, PRN ascorbic acid, 500 mg, Oral, q8hr baclofen, 20 mg, Oral, HS (at bedtime) benazepril, 10 mg, Oral, qAM ceFAZolin, 2 g= 50 mL, IV Piggyback, q8hr Crestor, 20 mg, Oral, HS (at bedtime) Dextrose 10% in Water IV Piggyback, 125 mL, IV Piggyback, As Indicated, PRN docusate sodium, 100 mg, Oral, BID Elavil, 25 mg, Oral, HS (at bedtime) famotidine, 20 mg, Oral, BID glucagon, 1 mg, Subcutaneous, As Indicated, PRN insulin aspart MEDIUM dose sliding scale BMI 26-30, See Comments, Subcutaneous, ACHS Lexapro, 20 mg, Oral, HS (at bedtime) linagliptin, 5 mg, Oral, Daily omeprazole, 40 mg, Oral, Daily ondansetron, 4 mg= 2 mL, IV Push, q4hr, PRN oxyCODONE-acetaminoph en 5 mg-325 mg oral tablet, 1 tabs, Oral, q4hr, PRN oxyCODONE-acetaminoph en 5 mg-325 mg oral tablet, 2 tabs, Oral, q4hr, PRN Xanax, 0.5 mg, Oral, TID, PRN ZyrTEC, 10 mg, Oral, qAM Assessment/Plan Status post lumbar spinal fusion assessment: 1. pod 1 L5-S1 PLIF 12/07/22 2. pre op MRI Lumbar 10/27/2021: L5-S1 disc bulge with severe bilateral neuroforaminal stenosis with mass effect on the L5 nerves. L4-5 disc bulge with mild left, moderate right foraminal narrowing. T12-L1 small disc protrusion with mild central canal stenosis. 3. HTN, depression, anxiety, asthma, recent melanoma 4. Chronic neck pain 5. New diagnosis of diabetes - on Lantus, Januvia and insulin ss - last A1C 7.7 Plan: hemovac to gravity this evening hwiv d/c dilaudid likely home tomorrow Orders: Communication Order Communication Order Electronically signed by Feliciano Tillman MD 12/08/22 16:07 EDT Normal [facility] POC Glucose Randomon 023 Glucose [Mass/Vol] 105 mg/dL High 70-99 [facility] Comment on above: Performed By: #### A SA #### [address] [address] Glucose [Mass/Vol] 99 mg/dL Normal 70-99 [facility] Comment on above: Performed By: #### C OMP #### [address] [address] Glucose [Mass/Vol] 127 mg/dL High 70-99 [facility] Comment on above: Performed By: #### C OMP #### [address] [address] [address] Spine Lumbar w/o Contrast on 12-07-2022 CT Spine Lumbar w/o Contrast CT lumbar spine without contrast on 12/07/[address] study was performed using one or more of the following dose reduction techniques: automated exposure control, adjustment of the mA and/or kV according to patient's size and/or use of iterative reconstruction technique. Clinical history: Postoperative evaluation. Comparison: Lumbar spine MRI on 10/27/2021 Findings: There is normal lordosis of the lumbar spine. The vertebral heights are well-maintained. There is no evidence of fractures or malalignment. Postoperative changes compatible with posterior decompression, posterior and interbody fusion at L5-S1 in satisfactory alignment. Mild endplate changes and mild to moderate disc bulge and facet arthropathy at L4-L5. Mild bilateral facet arthropathy at L3/L4. IMPRESSION: Postoperative changes compatible with posterior decompression, posterior and interbody fusion at L5-S1 in satisfactory alignment. Final Dictated by: Bonnie Stokes MD Dictated DT/TM: 12.07.2022 1:36 pm Signed by: Bonnie Stokes MD Signed (Electronic Signature): 12.07.2022 1:43 pm (If Report Is Signed, Electronically Signed in Other Vendor System) Normal [facility] Consultation Note - Generico n 12-07-2022 Consultation Note - Generic Chief Complaint Jan for: (L5-S1 ) Laminectomy Fixation Fusion and PLIF Assessment/Plan Assessment: Diabetes mellitus type 2 (A1c 7.7), currently controlled Status post lumbar spinal fusion, POD 0, L5-S1 PLIF (12/07/2022) Abnormal MRI of lumbar spine in 10/27/2021, leading to the above-mentioned Chronic neck and back pain, due to the above-mentioned Other comorbidities: ? Anxiety/depression, asthma, HTN, HLD, IBS, and recent melanoma. Plan: Patient safe for 6 floor Fall precautions on board Ambulate to chair ADA diet ordered Daily weight and strict I/O IV hydration per neurosurgical team Pain/nausea/fever control medications on board per neurosurgical team Home medications reviewed and appropriate ones restarted PT/OT to evaluate and treat per neurosurgical recommendations Neurosurgery's Dr. Tillman treating postop concerns. Intends to discharge patient on Saturday. We will follow along with neurosurgery Time spent: 45 minutes in total. Code Status: Full Resuscitation History of Present Illness Patient is a 47-year-old male with a PMHx of anxiety/depression, asthma, diabetes mellitus type 2, HTN, HLD, IBS, recent melanoma, and chronic back pain due to multiple issues is in the hospital as a patient of Dr. Tillman (neurosurgery) for lumbar spinal fusion of L5-S1 PLIF 12/07/2022 due to severe bilateral neuroforaminal stenosis with mass effect on the L5 nerves and L4-5 disc bulge with mild left moderate right foraminal narrowing. Patient seems to be doing well and complaining of appropriate postop discomfort, however we were consulted for diabetes management at this time. It appears that patient's family doctor told him he thinks he has late onset diabetes type 1, as the onset was too fast. I believe this might be diabetes type 2, however proper endocrinological work-up is necessary in this case. Either way, the patient is well controlled on his current medications. Recommend outpatient follow-up with [employer] worker. Review of Systems A 10-point review of system was conducted with the patient and negative, except for what has been mentioned above in HPI. Objective Physical Exam General: AAOx3, patient appears in no acute cardiorespiratory distress. Eye: Normal conjunctiva. HENT: Normocephalic, moist oral mucosa, no scleral icterus. Neck: Supple, non-tender, no lymphadenopathy. Lungs: Clear to auscultation, no crepitations or wheeze. Heart: RRR. S1-S2 is normal. No rubs or gallops. Abdomen: Soft, non-tender, non-distended, normal bowel sounds. Extremities: No cyanosis, clubbing or edema. Skin: Surgical wounds well dressed and dry. Neurologic: Patient does not have any focal deficits. Psychiatric: Calm and cooperative. Vitals & Measurements T: 36.4 ?C (Oral) TMIN: 36 ?C (Temporal Artery) TMAX: 36.6 ?C (Temporal Artery) HR: 102 (Peripheral) RR: 16 BP: 141/89 SpO2: 92% HT: 190.5 cm HT: 191 cm WT: 96.0 kg WT: 95.9 kg (Dosing) BMI: 26.45 BMI: 26.32 Additional Vitals No qualifying data available. Problem List/Past Medical History Ongoing Abnormal EKG Acid reflux Adverse effect of anesthesia Anxiety Anxiety disorder Asthma Back pain Carpal tunnel syndrome Depression Diabetes Hip pain Hypercholesteremia Hypertension Irritable bowel syndrome Melanoma Migraines Neck pain DIANA (obstructive sleep apnea) PONV (postoperative nausea and vomiting) Sacroiliac joint pain Seasonal allergies Spinal stenosis in cervical region Spinal stenosis of lumbar region Spondylosis Type 1 diabetes mellitus Historical Chest pain Palpitation Pericarditis Procedure/Surgical History hydrocele excision/repair (2007) Inguinal Hernia Repair (2007) Hydrocelectomy (09/09/2007) Repair of right inguinal hernia (09/09/2007) Lymph node dissection (2012) REMOVAL OF GALLBLADDER (2011) Umbilical hernia repair (2011) Excision of Right Inguinal Lymphatic, Open Approach, Diagnostic (09/09/2011) Injection steroid EPI 1 with sedation (11/30/2016) Injection sacroiliac nerve (12/21/2016) Injection sacroiliac nerve: left (01/18/2017) Radiofrequency ablation spinal (03/15/2017) Injection block nerve medial branch (11/04/2020) Injection block nerve medial branch (12/16/2020) Radiofrequency ablation spinal (01/27/2021) Injection block sacroiliac joint (01/12/2022) Colonoscopic polypectomy (03/13/2022) Endoscopy of upper gastrointestinal tract and dilation of esophageal stricture (03/13/2022) Injection block epidural caudal steroid (04/20/2022) INJECTION TREATMENT OF NERVE (06/07/2022) Injection spine transforaminal (06/08/2022) MOHS 1 STAGE H/N/HF/G (06/28/2022) Fusion Spine Lumbar Posterior with Navigation (12/07/2022) Medications Inpatient acetaminophen, 650 mg, Oral, q6hr, PRN ascorbic acid, 500 mg, Oral, q8hr baclofen, 20 mg, Oral, HS (at bedtime) benazepril, 10 mg, Oral, qAM ceFAZolin, 2 g= 50 mL, IV Piggyback, q8hr Crestor, 20 mg, Oral, HS (at bedtime) Dextro (more content not included)... Normal [facility] Neurosurgery Progress Noteon 12-07-2022 Neurosurgery Progress Note Subjective no issues post op Objective Vitals & Measurements T: 36.6 ?C (Temporal Artery) HR: 109 (Monitored) RR: 20 BP: 153/87 SpO2: 100% HT: 190.5 cm WT: 95.9 kg (Dosing) BMI: 26.23 Additional Vitals No qualifying data available. Lab Results Microbiology - Current Encounter No qualifying data available. Physical Exam 5/5 hailey LE strength Medications Inpatient acetaminophen, 650 mg, Oral, q6hr, PRN ascorbic acid, 500 mg, Oral, q8hr baclofen, 20 mg, Oral, HS (at bedtime) benazepril, 10 mg, Oral, qAM ceFAZolin, 2 g= 50 mL, IV Piggyback, Public Space Attendant, PRN ceFAZolin, 2 g= 50 mL, IV Piggyback, q8hr Crestor, 20 mg, Oral, HS (at bedtime) Dilaudid, 0.5 mg= 0.5 mL, IV Push, q5min, PRN Dilaudid, 1 mg= 1 mL, IV Push, q3hr, PRN docusate sodium, 100 mg, Oral, BID Elavil, 25 mg, Oral, HS (at bedtime) famotidine, 20 mg, Oral, BID labetalol, 10 mg= 2 mL, IV Push, q5min, PRN Lexapro, 20 mg, Oral, HS (at bedtime) linagliptin, 5 mg, Oral, Daily LR 1,000 mL, 1000 mL, IV LR 1,000 mL, 1000 mL, IV Normal Saline Flush 0.9% injectable solution, 10 mL, IV Push, As Indicated, PRN omeprazole, 40 mg, Oral, qAM ondansetron, 4 mg= 2 mL, IV Push, q4hr, PRN oxyCODONE-acetaminoph en 5 mg-325 mg oral tablet, 1 tabs, Oral, q4hr, PRN oxyCODONE-acetaminoph en 5 mg-325 mg oral tablet, 2 tabs, Oral, q4hr, PRN Sodium Chloride 0.9% with KCl 20 mEq/L intravenous solution 1,000 mL, 1000 mL, IV Xanax, 0.5 mg, Oral, TID Zofran, 4 mg= 2 mL, IV Push, Once ZyrTEC, 10 mg, Oral, qAM Assessment/Plan Status post lumbar spinal fusion assessment: 1. pod 0 L5-S1 PLIF 12/07/22 2. pre op MRI Lumbar 10/27/2021: L5-S1 disc bulge with severe bilateral neuroforaminal stenosis with mass effect on the L5 nerves. L4-5 disc bulge with mild left, moderate right foraminal narrowing. T12-L1 small disc protrusion with mild central canal stenosis. 3. HTN, depression, anxiety, asthma, recent melanoma 4. Chronic neck pain 5. New diagnosis of diabetes - on Lantus, Januvia and insulin ss - last A1C 7.7 Plan: CT lumbar then the floor likely home saturday Ordered: oxyCODONE-acetaminoph en, 1 tabs, Oral, q4hr, PRN, # 42 tabs, 0 Refill(s), [id number] Orders: acetaminophen, 650 mg, Oral, Tab, q6hr, PRN fever, First Dose: 12/07/22 12:02:00 EDT, Dispense From Location: [facility], 12/07/22 12:02:00 EDT ALPRAZolam, 0.5 mg, Oral, Tab, TID, First Dose: 12/07/22 14:00:00 EDT, Dispense From Location: [facility], 12/07/22 11:55:00 EDT amitriptyline, 25 mg, Oral, Tab, HS (at bedtime), First Dose: 12/07/22 21:00:00 EDT, Dispense From Location: [facility], 12/07/22 11:55:00 EDT ascorbic acid, 500 mg, Oral, Tab-Chew, q8hr, First Dose: 12/07/22 13:00:00 EDT, Dispense From Location: [facility], 12/07/22 12:02:00 EDT baclofen, 20 mg, Oral, Tab, HS (at bedtime), First Dose: 12/07/22 21:00:00 EDT, Dispense From Location: [facility], 12/07/22 11:55:00 EDT benazepril, 10 mg, Oral, Tab, qAM, First Dose: 12/08/22 9:00:00 EDT, Dispense From Location: [facility], 12/07/22 11:55:00 EDT ceFAZolin, 2 g, IV Piggyback, Soln-IV, q8hr, infuse over 30 minutes, First Dose: 12/07/22 11:59:00 EDT, Dispense From Location: [id number], Prophylaxis- Pre/Post-Op, 12/07/22 11:59:00 EDT ceFAZolin, 2 g, IV Piggyback, Soln-IV, Public Space Attendant, PRN other (see comment), infuse over 30 minutes, First Dose: 12/07/22 0:10:00 EDT, Dispense From Location: [id number], Prophylaxis- Pre/Post-Op, 12/07/22 0:10:00 EDT cetirizine, 10 mg, Oral, Tab, qAM, First Dose: 12/08/22 9:00:00 EDT, Dispense From Location: [facility], 12/07/22 11:55:00 EDT docusate, 100 mg, Oral, BID, # 60 caps, 0 Refill(s), [id number] docusate, 100 mg, Oral, Cap, BID, First Dose: 12/07/22 21:00:00 EDT, Dispense From Location: [facility], 12/07/22 12:02:00 EDT escitalopram, 20 mg, Oral, Tab, HS (at bedtime), First Dose: 12/07/22 21:00:00 EDT, Dispense From Location: [facility], 12/07/22 11:55:00 EDT famotidine, 20 mg, Oral, Tab, BID, First Dose: 12/07/22 21:00:00 EDT, Dispense From Location: [facility], 12/07/22 12:02:00 EDT HYDROmorphone, 1 mg, IV Push, Injection, q3hr, PRN pain, First Dose: 12/07/22 12:02:00 EDT, Dispense From Location: [facility], 12/07/22 12:02:00 EDT linagliptin, 5 mg, Oral, Tab, Daily, First Dose: 12/08/22 9:00:00 EDT, Dispense From Location: [facility], 12/07/22 11:55:00 EDT omeprazole, 40 mg, Oral, Cap-DR, qAM, First Dose: 12/08/22 9:00:00 EDT, Dispense From Location: [facility], 12/07/22 11:55:00 EDT ondansetron, 4 mg, IV Push, Injection, q4hr, PRN nausea, First Dose: 12/07/22 12:02:00 EDT, Dispense From Location: [id number], 12/07/22 12:02:00 EDT oxyCODONE-acetaminoph en, 1 tabs, Oral, Tab, q4hr, PRN moderate pain [4-6 on pain scale], First Dose: 12/07/22 12:02:00 EDT, Dispense From Location: [id number], 12/07/22 12:02:00 EDT oxyCODONE-acetaminoph en, 2 tabs, Oral, Tab, q4hr, PRN severe pain [7-10 on pain scale], First (more content not included)... Normal [facility] POC Glucose Randomon 023 Glucose [Mass/Vol] 133 mg/dL High 70-99 [facility] Comment on above: Performed By: #### A SA #### [address] [address] Glucose [Mass/Vol] 173 mg/dL High 70-99 [facility] Comment on above: Performed By: #### C [id number] #### [address] [address] Glucose [Mass/Vol] 181 mg/dL High 70-99 [facility] Comment on above: Performed By: #### C OMP #### [address] [address] Glucose [Mass/Vol] 124 mg/dL High 70-99 [facility] Comment on above: Performed By: #### A SA #### [address] [address] XR Spine Lumbosacral 4 Views + in ORon 12-07-2022 XR Spine Lumbosacral 4 Views + in OR Intraoperative fluoroscopic and CT images of the lumbar spine on 12/07/2022 Findings: limited intraoperative fluoroscopic and CT images obtained during lumbar spine surgery done by Dr. Tillman . Total fluoro time for this procedure is 4 seconds. This dictation is for documentation only. Please refer to the OR report for details. Final Dictated by: Bonnie Stokes MD Dictated DT/TM: 12/07/2022 1:44 pm Signed by: Bonnie Stokes MD Signed (Electronic Signature): 12/07/2022 1:45 pm (If Report Is Signed, Electronically Signed in Other Vendor System) Normal [facility] Neurosurgery Office/Clinic Elie maya 11-29-2022 Neurosurgery Office/Clinic Note Chief Complaint Patient is being seen to resign consents for surgery. History of Present Illness He is here for re-up for surgery. Plan for L5-S1 laminectomy fixation fusion and PLIF on 12/07/2022. No change in his symptoms since his last visit. He continues to have back pain, with b/l radiculopathy, L>R. No bladder or bowel issues. No recent illness. No chest pain or shortness of breath. He states he is ready for surgery. 11/01/2022 Visit: Donell returns to schedule surgery. He was previously scheduled for surgery but was found to have diabetes and to have an A1C of 11.4. His A1C is now 7.7. Symptoms are unchanged in the back and legs and he wishes to proceed with surgery at this time. He is now on insulin ss, Lantus and Januvia. 07/18/2022 Visit: The purpose of this visit is to discuss symptoms and review imaging and discuss treatment. History was reviewed and is accurate. Back pain: leg symptoms is 70:30. Numbness goes to the top of the feet. 07/10/2022 Visit: This is a very pleasant 47 year old male seen in referral at the request of Gloria Gutierrez PA-C for lumbar disc displacement and spondylosis. He has had low back pain since age 19, had occasional flareups over the years. The pain has progressively worsened. It is now constant, aching and intermittently stabbing, varies between 1?9/10 in severity. He is tingling into the B/L buttocks and hamstrings, numbness in the quadriceps, L>R, with aching in the left lateral calf to the ankle. Movement such as walking, standing, bending aggravate the pain. He can only stand about 5 minutes then needs to sit down. No weakness, no bladder or bowel dysfunction. The pain is affecting his quality of life. He has had multiple injections through pain management since 2017. The injections initially helped quite a bit, however they do not last as long anymore. Of note, he saw Dr. Sandie Luther, neurosurgeon at [facility] last fall, no surgery recommended. Back: Low back pain x years, progressive. Constant aching, intermittent stabbing, 1?11/18. Low back pain > legs Neck: Chronic neck pain Legs: Pain, numbness and tingling in B/L lower extremities, 2/10 in severity, L>R Care team: Dr. Mcgraw, pain management Dr. 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 L4-5 disc bulge with mild left, moderate right foraminal narrowing. T12-L1 small disc protrusion with mild central canal stenosis. Review of Systems General Adult ROS Fatigue: No Weakness: No Cardiovascular EENMT Gastrointestinal Genitourinary Hematologic/Lymphatic Musculoskeletal Back pain: Yes Other Musculoskeletal: Yes Neurological Numbness: Yes Psychiatric Respiratory Skin Physical Exam Vitals & Measurements HR: 72 (Peripheral) BP: 136/72 HT: 191 cm WT: 96.3 kg WT: 96.3 kg (Dosing) BMI: 26.4 Additional Vitals BP Position/Location: Sitting, Right arm General: Alert and oriented, well nourished, no acute distress. Eye: Normal conjunctiva, no scleral icterus. HENT: Normocephalic, atraumatic, oral mucosa pink and moist. Neck: Supple. Pulmonary: Clear to auscultation, non-labored respiration. Cardiovascular: Normal rate, regular rhythm, no murmur, no edema. Abdomen: Soft, nontender Skin: Normal temperature and texture. Psychiatric: Appropriate judgment and insight, appropriate mood and affect. NEURO EXAM: Pupils are equal bilaterally and reactive to light. No eye deviation at primary gaze. Extraocular movements are full. Face is symmetric, facial sensation intact, tongue midline Hearing is intact to finger rub Motor: Upper Extremity Strength: 5/5 Lower Extremity Strength: 5/5 Reflexes: Reflexes of the upper extremities are 2+ Reflexes of the lower extremities are 2+ No clonus. Sensation: Grossly intact to light touch throughout Gait: Posture is normal. Gait is steady. Base and stride normal. Able to walk on toes and heels Musculoskeletal: Spine: no visible deformities or step offs Assessment/Plan Assessment: 1. Low back pain x years, progressive with B/L radiculopathy, L>R. Low back pain > legs. 2. MRI Lumbar 10/27/2021: L5-S1 disc bulge with severe bilateral neuroforaminal stenosis with mass effect on the L5 nerves. L4-5 disc bulge w (more content not included)... Normal [facility] Provider Letteron 11-29-2022 Provider Letter Jack Ortega DO [facility] [place] [address] Re: Donell Dumont Date of Visit: 11/29/2022 Dear Jack Ortega DO, Thank you for allowing me to contribute to the care of your patient: Donell Dumont Attached is my office note where you will find my assessment and recommendations from our encounter. My office?s contact information: [facility] [address], [phone] Let me know if you have any questions or concerns. Sincerely, LUCY Gonzalez Providers: The following document(s) were included in the letter: November 29, 2022 15:40:16 EDT - (11/29/2022) Neurosurgery Office Visit Note Normal [facility] .UA Microscp Aon 11-23-2022 UA RBC Quant 0 /HPF Normal 0-5 [facility] Comment on above: Performed By: #### C [id number] #### [address] [address] UA WBC Quant 0 /HPF Normal 0-5 [facility] Comment on above: Performed By: #### C [id number] #### [address] [address] .eGFRon 11-23-2022 GFR/1.73 sq M.predicted MDRD (S/P/Bld) [Vol rate/Area] mL/min/{1.73_m2} Normal >=60 [facility] Comment on above: Result Comment: [facility] have implemented the eGFR calculation approach that does not have a coefficient for race and that conforms to the NKF-ASN Task Force Recommendations. Stages of Chronic Kidney Disease GFR Stage 3a Mild to moderate loss of kidney function 59 to 45 Stage 3b Moderate to severe loss of kidney function 44 to 33 Stage 4 Severe loss of kidney function 29 to 15 Stage 5 Kidney failure Less than 15 GFR calculated using the CKD-Epi Creatinine Equation (2020): eGFR = 142 X min(SCr/?, 1)? X max(SCr /?, 1)-1.200 X 0.9938Age X 1.012 [if female] Abbreviations/Units: eGFR (estimated glomerular filtration rate) = mL/min/1.73 m2 SCr (standardized serum creatinine) = mg/dL ? = 0.7 (females) or 0.9 (males) ? = -0.241 (females) or -0.302 (males) min = indicates the minimum of SCr/? or 1 max = indicates the maximum of SCr/? or 1 Age = years Performed By: #### A SA #### [address] [address] ABO/Rhon 11-23-2022 ABO/Rh SD 9.29.23 ABO/Rh: O POS Normal [facility] Comment on above: Performed By: #### P TINR #### [address] [address] ABSC Autoon 11-23-2022 ABSC Auto Negative Normal [facility] Comment on above: Performed By: #### A SA #### [address] [address] CBC w/ Diffon 11-23-2022 Erythrocyte distribution width (RBC) [Ratio] 14.3 % Normal 11.6-14.8 [facility] Comment on above: Performed By: #### C OMP #### [address] [address] Hematocrit (Bld) [Volume fraction] 46.7 % Normal 41.0-53.0 [facility] Comment on above: Performed By: #### C OMP #### [address] [address] Hemoglobin (Bld) [Mass/Vol] 15.7 g/dL Normal 13.5-17.5 [facility] Comment on above: Performed By: #### C OMP #### [address] [address] MCH (RBC) [Entitic mass] 29.0 pg Normal 27.0-35.0 [facility] Comment on above: Performed By: #### C OMP #### [address] [address] MCHC 33.5 % Normal 31.0-37.0 [facility] Comment on above: Performed By: #### C OMP #### [address] [address] MCV (RBC) [Entitic vol] 86.4 fL Normal 80.0-100.0 [facility] Comment on above: Performed By: #### C OMP #### [address] [address] Platelet 236 x10*3/mcL Normal 150-450 [facility] Comment on above: Performed By: #### C OMP #### [address] [address] Platelet mean volume (Bld) [Entitic vol] 9.7 fL Normal 6.7-10.6 [facility] Comment on above: Performed By: #### C OMP #### [address] [address] RBC 5.41 x10*6/mcL Normal 4.30-5.80 [facility] Comment on above: Performed By: #### C OMP #### [address] [address] WBC 7.6 x10*3/mcL Normal 4.5-11.0 [facility] Comment on above: Performed By: #### C OMP #### [address] [address] CMPon 11-23-2022 Albumin [Mass/Vol] 4.9 g/dL Normal 3.2-4.9 [facility] Comment on above: Performed By: #### C OMP #### [address] [address] Albumin/Globulin [Mass ratio] 1.6 {ratio} Normal 1.1-2.2 [facility] Comment on above: Performed By: #### C OMP #### [address] [address] Alk Phos 70 IU/L Normal 32-91 [facility] Comment on above: Performed By: #### C OMP #### [address] [address] ALT [Catalytic activity/Vol] 28 U/L Normal 17-63 [facility] Comment on above: Performed By: #### C OMP #### [address] [address] Anion gap [Moles/Vol] 11 mmol/L Normal 7-17 [facility] Comment on above: Performed By: #### C OMP #### [address] [address] AST [Catalytic activity/Vol] 23 U/L Normal 15-41 [facility] Comment on above: Performed By: #### C OMP #### [address] [address] Bili Total 0.7 mg/dL Normal 0.3-1.2 [facility] Comment on above: Performed By: #### C OMP #### [address] [address] Calcium [Mass/Vol] 9.7 mg/dL Normal 8.5-10.3 [facility] Comment on above: Performed By: #### C OMP #### [address] [address] Chloride [Moles/Vol] 105 mmol/L Normal 98-110 [facility] Comment on above: Performed By: #### C OMP #### [address] [address] CO2 [Moles/Vol] 28 mmol/L Normal 22-32 [facility] Comment on above: Performed By: #### C OMP #### [address] [address] Creatinine [Mass/Vol] 0.96 mg/dL Normal 0.61-1.24 [facility] Comment on above: Performed By: #### C OMP #### [address] [address] Glucose [Mass/Vol] 153 mg/dL High 70-99 [facility] Comment on above: Performed By: #### C OMP #### [address] [address] Potassium [Moles/Vol] 4.4 mmol/L Normal 3.4-4.8 [facility] Comment on above: Performed By: #### C OMP #### [address] [place] [address] Protein [Mass/Vol] 7.9 g/dL Normal 6.5-8.1 [facility] Comment on above: Performed By: #### C OMP #### [address] [address] Sodium [Moles/Vol] 140 mmol/L Normal 133-142 [facility] Comment on above: Performed By: #### C OMP #### [address] [address] Urea nitrogen [Mass/Vol] 18 mg/dL Normal 8-26 [facility] Comment on above: Performed By: #### C OMP #### [address] [address] Urea nitrogen/Creatinine [Mass ratio] 18.8 mg/mg Normal 10.0-20.0 [facility] Comment on above: Performed By: #### C OMP #### [address] [address] Diff Autoon 11-23-2022 Baso Absolute 0.1 x10*3/mcL Normal 0.0-0.2 [facility] Comment on above: Performed By: #### A SA #### [address] [address] Basophils/100 WBC (Bld) 0.8 % Normal 0.0-1.2 [facility] Comment on above: Performed By: #### A SA #### [address] [address] Eos Absolute 0.5 x10*3/mcL High 0.0-0.4 [facility] Comment on above: Performed By: #### A SA #### [address] [address] Eosinophils/100 WBC (Bld) 6.1 % Normal 0.0-6.1 [facility] Comment on above: Performed By: #### A SA #### [address] [address] Lymph Absolute 1.9 x10*3/mcL Normal 1.0-4.8 [facility] Comment on above: Performed By: #### A SA #### [address] [address] Lymphocytes/100 WBC (Bld) 25.8 % Low 27.2-40.8 [facility] Comment on above: Performed By: #### A SA #### [address] [address] [place] Absolute 0.5 x10*3/mcL Normal 0.3-1.1 [facility] Comment on above: Performed By: #### A SA #### [address] [address] Monocytes/100 WBC (Bld) 6.3 % Normal 4.7-13.9 [facility] Comment on above: Performed By: #### A #### [address] [address] Neutro Absolute 4.6 x10*3/mcL Normal 1.8-7.7 [facility] Comment on above: Performed By: #### A SA #### [address] [address] Neutro Auto 61.0 % Normal 47.2-70.8 [facility] Comment on above: Performed By: #### A #### [address] [address] HbA1c w/Rflx Fructosamineon 11-23-2022 Glucose [Mass/Vol] 154 mg/dL High 68-114 [facility] Comment on above: Result Comment: Math ematical Calc approx. The mean gluc equivalency of A1c Performed By: #### C [id number] #### [address] [address] Hgb A1c 7.0 % A1c High 4.0-5.6 [facility] Comment on above: Result Comment: Refe rence Range: 4.0 - 5.6 % Normal 5.7 - 6.4 % Pre-Diabetes > 6.5 % Diabetes Performed By: #### C [id number] #### [address] [address] PTon 11-23-2022 INR Coag (PPP) [Relative time] 0.9 {INR} Normal <=3.5 [facility] Comment on above: Result Comment: INR has no normal range. INR Therapeutic range is: 2.0-3.0 (AF, CVA, TIAs, DVT prophylaxis, acute DVT) 2.5-3.5 (Mech heart valves, recurrent thrombosis/emboli) Performed By: #### P TINR #### [address] [place] [address] PT Coag (PPP) [Time] 9.6 s Normal 9.3-11.9 [facility] Comment on above: Performed By: #### P TINR #### [address] [address] PTTon 11-23-2022 aPTT Coag (Bld) [Time] 24.9 s Normal 20.6-29.2 [facility] Comment on above: Performed By: #### A SA #### [address] [address] UA w Culture if Indon 2022 Color (U) Colorless Normal [facility] Comment on above: Performed By: #### C OMP #### [address] [address] Ketones Ql (U) Negative Normal Negative [facility] Comment on above: Performed By: #### C OMP #### [address] [place] [address] UA Blood Negative Normal Negative [facility] Comment on above: Performed By: #### C OMP #### [address] [place] [address] UA Clarity Clear Normal [facility] Comment on above: Performed By: #### C OMP #### [address] [place] [address] UA Glucose Normal Normal Negative [facility] Comment on above: Performed By: #### C OMP #### [address] [place] [address] UA Leukocyte Esterase Negative Normal Negative [facility] Comment on above: Performed By: #### C OMP #### [address] [place] [address] UA Nitrite Negative Normal Negative [facility] Comment on above: Performed By: #### C OMP #### [address] [address] UA pH 7.0 Normal 4.5 - 7.8 [facility] Comment on above: Performed By: #### C OMP #### [address] [address] UA Protein Negative Normal Negative [facility] Comment on above: Performed By: #### C OMP #### [address] [address] UA Source Clean Catch Normal [facility] Comment on above: Performed By: #### C OMP #### [address] [address] UA Spec Grav 1.009 Normal 1.003-1.035 [facility] Comment on above: Performed By: #### C OMP #### [address] [address] UA Urobilinogen Normal Normal 0.2 - 1.0 [facility] Comment on above: Performed By: #### C OMP #### [place] [id number] Urobilinogen (U) [Mass/Vol] Negative Normal Negative [facility] Comment on above: Performed By: #### C OMP #### [place] [id number] Neurosurgery Office/Clinic N zulma 11-01-2022 Neurosurgery Office/Clinic Note Chief Complaint Patient is being seen for possible re-up for surgery. History of Present Illness Donell returns to schedule surgery. He was previously scheduled for surgery but was found to have diabetes and to have an A1C of 11.4. His A1C is now 7.7. Symptoms are unchanged in the back and legs and he wishes to proceed with surgery at this time. He is now on insulin ss, lantus and januvia. 07/18/2022 Visit: The purpose of this visit is to discuss symptoms and review imaging and discuss treatment. History was reviewed and is accurate. Back pain: leg symptoms is 70:30. Numbness goes to the top of the feet. 07/10/2022 Visit: This is a very pleasant 47 year old male seen in referral at the request of Gloria Gutierrez PA-C for lumbar disc displacement and spondylosis. He has had low back pain since age 19, had occasional flareups over the years. The pain has progressively worsened. It is now constant, aching and intermittently stabbing, varies between 1?9/10 in severity. He is tingling into the B/L buttocks and hamstrings, numbness in the quadriceps, L>R, with aching in the left lateral calf to the ankle. Movement such as walking, standing, bending aggravate the pain. He can only stand about 5 minutes then needs to sit down. No weakness, no bladder or bowel dysfunction. The pain is affecting his quality of life. He has had multiple injections through pain management since 2017. The injections initially helped quite a bit, however they do not last as long anymore. Of note, he saw Dr. Sandie Luther, neurosurgeon at [facility] last fall, no surgery recommended. Back: Low back pain x years, progressive. Constant aching, intermittent stabbing, 1?9/10. Low back pain > legs Neck: Chronic neck pain Legs: Pain, numbness and tingling in B/L lower extremities, 2/10 in severity, L>R Care team: Dr. Mcgraw, pain management Dr. 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 L4-5 disc bulge with mild left, moderate right foraminal narrowing. T12-L1 small disc protrusion with mild central canal stenosis. [1] Review of Systems General Adult ROS Fatigue: Yes Weakness: Yes Cardiovascular EENMT Gastrointestinal Genitourinary Hematologic/Lymphatic Musculoskeletal Back pain: Yes Other Musculoskeletal: Yes Neurological Numbness: Yes Psychiatric Respiratory Skin Physical Exam Vitals & Measurements HR: 72 (Peripheral) BP: 140/76 HT: 191 cm WT: 96.3 kg WT: 96.3 kg (Dosing) BMI: 26.4 Additional Vitals BP Position/Location: Sitting, Right arm General: Alert and oriented, well nourished, no acute distress Eye: PERRL, EOMI, normal conjunctiva HENT: Normocephalic, clear tympanic membranes, normal hearing, moist oral mucosa, no scleral icterus, no sinus tenderness Neck: Supple, non-tender, no carotid bruits, no JVD, no lymphadenopathy Lungs: Clear to auscultation and percussion, non-labored respiration Heart: Normal rate, regular rhythm, no murmur, gallop or edema Abdomen: Soft, non-tender, non-distended, normal bowel sounds, no masses]. Musculoskeletal: [Normal range of motion and strength, no tenderness or swelling Skin: Skin is warm, dry and pink, no rashes or lesions Psychiatric: Cooperative, appropriate mood and affect Neurologic: EOMI, PERRLA, TML, FS, No drift 5/5 hailey UE strength 5/5 hailey LE strength 2+ UE reflexes 2+ LE reflexes Clonus absent Assessment/Plan Assessment: 1. Low back pain x years, progressive with B/L radiculopathy, L>R. Low back pain > legs. 2. MRI Lumbar 10/27/2021: L5-S1 disc bulge with severe bilateral neuroforaminal stenosis with mass effect on the L5 nerves. L4-5 disc bulge with mild left, moderate right foraminal narrowing. T12-L1 small disc protrusion with mild central canal stenosis. 3. HTN, depression, anxiety, asthma, recent melanoma 4. Chronic neck pain 5. New diagnosis of diabetes - on lantus, januvia and insulin ss - last A1C 7.7 Plan: Once again, I recommend L5-S1 laminectomy fixation fusion and PLIF. Described risk included bleeding, infection, neurological injury, infection, blindness, csf leak, medical complication, adjacent disease, hardware failure, , continued pain, and need for further procedures or surgeries. In order to decompress the (more content not included)... Normal [facility] Neurosurgery Office/Clinic Note Chief Complaint Chief Complaint Patient is being seen for possible re-up for surgery. History of Present Illness 07/18/2022 Visit: The purpose of this visit is to discuss symptoms and review imaging and discuss treatment. History was reviewed and is accurate. Back pain: leg symptoms is 70:30. Numbness goes to the top of the feet. 07/10/2022 Visit: This is a very pleasant 47 year old male seen in referral at the request of Gloria Gutierrez PA-C for lumbar disc displacement and spondylosis. He has had low back pain since age 19, had occasional flareups over the years. The pain has progressively worsened. It is now constant, aching and intermittently stabbing, varies between 1?9/10 in severity. He is tingling into the B/L buttocks and hamstrings, numbness in the quadriceps, L>R, with aching in the left lateral calf to the ankle. Movement such as walking, standing, bending aggravate the pain. He can only stand about 5 minutes then needs to sit down. No weakness, no bladder or bowel dysfunction. The pain is affecting his quality of life. He has had multiple injections through pain management since 2017. The injections initially helped quite a bit, however they do not last as long anymore. Of note, he saw Dr. Sandie Luther, neurosurgeon at [facility] last fall, no surgery recommended. Back: Low back pain x years, progressive. Constant aching, intermittent stabbing, 1?9/10. Low back pain > legs Neck: Chronic neck pain Legs: Pain, numbness and tingling in B/L lower extremities, 2/10 in severity, L>R Care team: Dr. Mcgraw, pain management Dr. 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 L4-5 disc bulge with mild left, moderate right foraminal narrowing. T12-L1 small disc protrusion with mild central canal stenosis. Physical Exam Vitals & Measurements HR: 72 (Peripheral) BP: 140/76 HT: 191 cm WT: 96.3 kg WT: 96.3 kg (Dosing) BMI: 26.4 Additional Vitals BP Position/Location: Sitting, Right arm Assessment/Plan Assessment: 1. Low back pain x years, progressive with B/L radiculopathy, L>R. Low back pain > legs. 2. MRI Lumbar 10/27/2021: L5-S1 disc bulge with severe bilateral neuroforaminal stenosis with mass effect on the L5 nerves. L4-5 disc bulge with mild left, moderate right foraminal narrowing. T12-L1 small disc protrusion with mild central canal stenosis. 3. HTN, depression, anxiety, asthma, recent melanoma 4. Chronic neck pain Medical Decision Making Chronic conditions NOT treated during this visit that affected my overall medical decision making: [] Treatment plans discussed but not opted for at this time: [] Prescribed medication that requires intensive monitoring for toxicity: [] I have reviewed the patient?s medication list for medication interactions/contrain dications and/or for upcoming procedures: [yes or no] Time Spent with the Patient I have personally spent [] minutes on this date, directly related to today's patient visit, including pre and post visit work, for this date of service. Time listed does not include time spent on separately billable services. Problem List/Past Medical History Ongoing Abnormal EKG Acid reflux Adverse effect of anesthesia Anxiety Anxiety disorder Asthma Back pain Carpal tunnel syndrome Chest pain Depression Hip pain Hypercholesteremia Hypertension Irritable bowel syndrome Melanoma Migraines Neck pain Palpitation Pericarditis Sacroiliac joint pain Spinal stenosis in cervical region Spinal stenosis of lumbar region Spondylosis Type 1 diabetes mellitus Historical No qualifying data Procedure/Surgical History hydrocele excision/repair (2007) Inguinal Hernia Repair (2007) Hydrocelectomy (09/09/2007) Repair of right inguinal hernia (09/09/2007) Lymph node dissection (2011) REMOVAL OF GALLBLADDER (2011) Umbilical hernia repair (2011) Excision of Right Inguinal Lymphatic, Open Approach, Diagnostic (09/09/2011) Gallbladder absent (09/09/2011) Injection steroid EPI 1 with sedation (11/30/2016) Injection sacroiliac nerve (12/21/2016) Injection sacroiliac nerve: left (01/18/2017) Radiofrequency ablation spinal (03/15/2017) Injection block nerve medial branch (11/04/2020) Injection block nerve medial branc (more content not included)... Normal [facility] Comment on above: Order Comment: Pancho hartman charting GLYCOHEMOGLOBIN A1Con 2022 ADA RECOMMENDATION SEE BELOW Normal [facility] Comment on above: Result Comment: ADA RECOMMENDED LIMIT 4.0 - 6.0 ADA THERAPEUTIC TARGET < 7.0 ACTION SUGGESTED > 7.0 Performed By: #### A 1C #### [facility] [address] [address] [address] Andi Enamorado Glucose [Mass/Vol] 280 mg/dL Normal [facility] Comment on above: Performed By: #### A 1C #### [facility] [address] [address] [address] Andi Enamorado HbA1c (Bld) [Mass fraction] 11.4 % Critically high 4.5-6.2 [facility] Comment on above: Performed By: #### A 1C #### [facility] [address] [address] [address] Andi Enamorado .UA Microscp Aon 07-30-2022 UA Hyline Cast Qual 0-2 Normal Negative [facility] Comment on above: Performed By: #### . Urinalysis Microscopic Auto #### [facility] [address] [place] [address] UA Mucus Present Abnormal Absent [facility] Comment on above: Performed By: #### . Urinalysis Microscopic Auto #### [facility] [address] [place] [address] UA RBC Quant 0 /HPF Normal 0-5 [facility] Comment on above: Performed By: #### . Urinalysis Microscopic Auto #### [address] [place] [address] UA WBC Quant 0 /HPF Normal 0-5 [facility] Comment on above: Performed By: #### . Urinalysis Microscopic Auto #### [place] [id number] .eGFRon 07-30-2022 GFR/1.73 sq M.predicted MDRD (S/P/Bld) [Vol rate/Area] mL/min/{1.73_m2} Normal >=60 [facility] Comment on above: Result Comment: [facility] have implemented the eGFR calculation approach that does not have a coefficient for race and that conforms to the NKF-ASN Task Force Recommendations. Stages of Chronic Kidney Disease GFR Stage 3a Mild to moderate loss of kidney function 59 to 45 Stage 3b Moderate to severe loss of kidney function 44 to 33 Stage 4 Severe loss of kidney function 29 to 15 Stage 5 Kidney failure Less than 15 GFR calculated using the CKD-Epi Creatinine Equation (2020): eGFR = 142 X min(SCr/?, 1)? X max(SCr /?, 1)-1.200 X 0.9938Age X 1.012 [if female] Abbreviations/Units: eGFR (estimated glomerular filtration rate) = mL/min/1.73 m2 SCr (standardized serum creatinine) = mg/dL ? = 0.7 (females) or 0.9 (males) ? = -0.241 (females) or -0.302 (males) min = indicates the minimum of SCr/? or 1 max = indicates the maximum of SCr/? or 1 Age = years Performed By: #### C OMP #### [facility] [address] [place] [address] ABO/Rhon 07-30-2022 ABO/Rh SD: 08.14.2022 ABO/Rh: O POS Normal [facility] Comment on above: Performed By: #### A DAVIN #### [facility] (DEFAULT) [id number] [place] [address] ABSC Autoon 07-30-2022 ABSC Auto Negative Normal [facility] Comment on above: Performed By: #### A SA #### [address] [address] CBC w/ Diffon 07-30-2022 Erythrocyte distribution width (RBC) [Ratio] 14.1 % Normal 11.6-14.8 [facility] Comment on above: Performed By: #### C OMP #### [address] [address] Hematocrit (Bld) [Volume fraction] 47.0 % Normal 41.0-53.0 [facility] Comment on above: Performed By: #### C OMP #### [address] [address] Hemoglobin (Bld) [Mass/Vol] 15.7 g/dL Normal 13.5-17.5 [facility] Comment on above: Performed By: #### C OMP #### [address] [address] MCH (RBC) [Entitic mass] 28.9 pg Normal 27.0-35.0 [facility] Comment on above: Performed By: #### C OMP #### [address] [address] MCHC 33.5 % Normal 31.0-37.0 [facility] Comment on above: Performed By: #### C OMP #### [address] [address] MCV (RBC) [Entitic vol] 86.3 fL Normal 80.0-100.0 [facility] Comment on above: Performed By: #### C OMP #### [address] [address] Platelet 242 x10*3/mcL Normal 150-350 [facility] Comment on above: Performed By: #### C OMP #### [address] [address] Platelet mean volume (Bld) [Entitic vol] 10.2 fL Normal 6.7-10.6 [facility] Comment on above: Performed By: #### C OMP #### [address] [place] [address] RBC 5.44 x10*6/mcL Normal 4.30-5.80 [facility] Comment on above: Performed By: #### C OMP #### [address] [address] WBC 7.7 x10*3/mcL Normal 4.5-11.0 [facility] Comment on above: Performed By: #### C OMP #### [address] [address] CMPon 07-30-2022 Albumin [Mass/Vol] 4.5 g/dL Normal 3.2-4.9 [facility] Comment on above: Performed By: #### A SA #### [address] [address] Albumin/Globulin [Mass ratio] 1.6 {ratio} Normal 1.1-2.2 [facility] Comment on above: Performed By: #### A SA #### [address] [address] Alk Phos 88 IU/L Normal 32-91 [facility] Comment on above: Performed By: #### A SA #### [address] [address] ALT [Catalytic activity/Vol] 40 U/L Normal 17-63 [facility] Comment on above: Performed By: #### A SA #### [address] [address] Anion gap [Moles/Vol] 12 mmol/L Normal 7-17 [facility] Comment on above: Performed By: #### A SA #### [address] [address] AST [Catalytic activity/Vol] 24 U/L Normal 15-41 [facility] Comment on above: Performed By: #### A SA #### [address] [address] Bili Total 0.7 mg/dL Normal 0.3-1.2 [facility] Comment on above: Performed By: #### A SA #### [address] [address] Calcium [Mass/Vol] 9.4 mg/dL Normal 8.5-10.3 [facility] Comment on above: Performed By: #### A SA #### [address] [address] Chloride [Moles/Vol] 102 mmol/L Normal 98-110 [facility] Comment on above: Performed By: #### A SA #### [address] [address] CO2 [Moles/Vol] 29 mmol/L Normal 22-32 [facility] Comment on above: Performed By: #### A SA #### [address] [address] Creatinine [Mass/Vol] 0.94 mg/dL Normal 0.61-1.24 [facility] Comment on above: Performed By: #### A #### [address] [address] Glucose [Mass/Vol] 289 mg/dL High 70-99 [facility] Comment on above: Performed By: #### A SA #### [address] [address] Potassium [Moles/Vol] 4.4 mmol/L Normal 3.4-4.8 [facility] Comment on above: Performed By: #### A SA #### [address] [address] Protein [Mass/Vol] 7.3 g/dL Normal 6.5-8.1 [facility] Comment on above: Performed By: #### A SA #### [address] [place] [address] Sodium [Moles/Vol] 139 mmol/L Normal 133-142 [facility] Comment on above: Performed By: #### A SA #### [address] [address] Urea nitrogen [Mass/Vol] 13 mg/dL Normal 8-26 [facility] Comment on above: Performed By: #### A SA #### [address] [address] Urea nitrogen/Creatinine [Mass ratio] 13.8 mg/mg Normal 10.0-20.0 [facility] Comment on above: Performed By: #### A SA #### [address] [address] Diff Autoon 07-30-2022 Baso Absolute 0.1 x10*3/mcL Normal 0.0-0.2 [facility] Comment on above: Performed By: #### C OMP #### [address] [address] Basophils/100 WBC (Bld) 0.8 % Normal 0.0-1.2 [facility] Comment on above: Performed By: #### C OMP #### [address] [address] Eos Absolute 0.4 x10*3/mcL Normal 0.0-0.4 [facility] Comment on above: Performed By: #### C OMP #### [address] [address] Eosinophils/100 WBC (Bld) 4.6 % Normal 0.0-6.1 [facility] Comment on above: Performed By: #### C OMP #### [address] [address] Lymph Absolute 2.0 x10*3/mcL Normal 1.0-4.8 [facility] Comment on above: Performed By: #### C OMP #### [address] [address] Lymphocytes/100 WBC (Bld) 25.9 % Low 27.2-40.8 [facility] Comment on above: Performed By: #### C OMP #### [address] [address] [place] Absolute 0.5 x10*3/mcL Normal 0.3-1.1 [facility] Comment on above: Performed By: #### C OMP #### [address] [address] Monocytes/100 WBC (Bld) 6.4 % Normal 4.7-13.9 [facility] Comment on above: Performed By: #### C OMP #### [address] [address] Neutro Absolute 4.8 x10*3/mcL Normal 1.8-7.7 [facility] Comment on above: Performed By: #### C OMP #### [address] [address] Neutro Auto 62.3 % Normal 47.2-70.8 [facility] Comment on above: Performed By: #### C OMP #### [address] [address] PTon 07-30-2022 INR Coag (PPP) [Relative time] 0.9 {INR} Normal <=3.5 [facility] Comment on above: Result Comment: INR has no normal range. INR Therapeutic range is: 2.0-3.0 (AF, CVA, TIAs, DVT prophylaxis, acute DVT) 2.5-3.5 (Mech heart valves, recurrent thrombosis/emboli) Performed By: #### P TINR #### [address] [address] PT Coag (PPP) [Time] 9.7 s Normal 9.3-11.9 [facility] Comment on above: Performed By: #### P TINR #### [address] [address] PTTon 07-30-2022 aPTT Coag (Bld) [Time] 23.7 s Normal 20.6-29.2 [facility] Comment on above: Performed By: #### C OMP #### [address] [address] UA w Culture if Indon 2022 Color (U) Light-Yellow Normal [facility] Comment on above: Performed By: #### A SA #### [address] [place] [address] Glucose (U) [Mass/Vol] mg/dL Abnormal Negative [facility] Comment on above: Performed By: #### A SA #### [address] [place] [address] Ketones Ql (U) Trace Abnormal Negative [facility] Comment on above: Performed By: #### A SA #### [address] [place] [address] UA Blood Negative Normal Negative [facility] Comment on above: Performed By: #### A SA #### [address] [place] [address] UA Clarity Clear Normal [facility] Comment on above: Performed By: #### A SA #### [address] [place] [address] UA Leukocyte Esterase Negative Normal Negative [facility] Comment on above: Performed By: #### A SA #### [address] [place] [address] UA Nitrite Negative Normal Negative [facility] Comment on above: Performed By: #### A SA #### [address] [place] [address] UA pH 5.5 Normal 4.5 - 7.8 [facility] Comment on above: Performed By: #### A SA #### [address] [place] [address] UA Protein 30 mg/dL Abnormal Negative [facility] Comment on above: Performed By: #### A SA #### [address] [place] [address] UA Source Clean Catch Normal [facility] Comment on above: Performed By: #### A SA #### [address] [place] [address] UA Spec Grav 1.041 High 1.003-1.035 [facility] Comment on above: Performed By: #### A SA #### [facility] [address] [place] [address] UA Urobilinogen Normal Normal 0.2 - 1.0 [facility] Comment on above: Performed By: #### A SA #### [facility] [address] [place] [address] Urobilinogen (U) [Mass/Vol] Negative Normal Negative [facility] Comment on above: Performed By: #### A SA #### [facility] [address] [place] [address] Neurosurgery Office/Clinic N oteon 07-18-2022 Neurosurgery Office/Clinic Note Chief Complaint Patient is being seen for review of XR. History of Present Illness The purpose of this visit is to discuss symptoms and review imaging and discuss treatment. History was reviewed and is accurate. Back pain: leg symptoms is 70:30. Numbness goes to the top of the feet. 07/10/2022 Visit: This is a very pleasant 47 year old male seen in referral at the request of Gloria Gutierrez PA-C for lumbar disc displacement and spondylosis. He has had low back pain since age 19, had occasional flareups over the years. The pain has progressively worsened. It is now constant, aching and intermittently stabbing, varies between 1?9/10 in severity. He is tingling into the B/L buttocks and hamstrings, numbness in the quadriceps, L>R, with aching in the left lateral calf to the ankle. Movement such as walking, standing, bending aggravate the pain. He can only stand about 5 minutes then needs to sit down. No weakness, no bladder or bowel dysfunction. The pain is affecting his quality of life. He has had multiple injections through pain management since 2017. The injections initially helped quite a bit, however they do not last as long anymore. Of note, he saw Dr. Sandie Luther, neurosurgeon at [facility] last fall, no surgery recommended. Back: Low back pain x years, progressive. Constant aching, intermittent stabbing, 1?9/10. Low back pain > legs Neck: Chronic neck pain Legs: Pain, numbness and tingling in B/L lower extremities, 2/10 in severity, L>R Care team: Dr. Mcgraw, pain management Dr. 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 L4-5 disc bulge with mild left, moderate right foraminal narrowing. T12-L1 small disc protrusion with mild central canal stenosis. Review of Systems General Adult ROS Fatigue: Yes Weakness: Yes Cardiovascular EENMT Gastrointestinal Genitourinary Hematologic/Lymphatic Musculoskeletal Back pain: Yes Other Musculoskeletal: Yes Neurological Numbness: Yes Psychiatric Respiratory Skin Physical Exam Vitals & Measurements HR: 72 (Peripheral) BP: 122/74 HT: 191 cm WT: 95.8 kg WT: 95.8 kg (Dosing) BMI: 26.26 Additional Vitals BP Position/Location: Sitting, Left arm General: Alert and oriented, well nourished, no acute distress Eye: PERRL, EOMI, normal conjunctiva HENT: Normocephalic, clear tympanic membranes, normal hearing, moist oral mucosa, no scleral icterus, no sinus tenderness Neck: Supple, non-tender, no carotid bruits, no JVD, no lymphadenopathy Lungs: Clear to auscultation and percussion, non-labored respiration Heart: Normal rate, regular rhythm, no murmur, gallop or edema Abdomen: Soft, non-tender, non-distended, normal bowel sounds, no masses]. Musculoskeletal: [Normal range of motion and strength, no tenderness or swelling Skin: Skin is warm, dry and pink, no rashes or lesions Psychiatric: Cooperative, appropriate mood and affect Neurologic: EOMI, PERRLA, TML, FS, No drift 5/5 hailey UE strength 5/5 hailey LE strength 2+ UE reflexes 2+ LE reflexes Clonus absent Assessment/Plan Assessment: 1. Low back pain x years, progressive with B/L radiculopathy, L>R. Low back pain > legs. 2. MRI Lumbar 10/27/2021: L5-S1 disc bulge with severe bilateral neuroforaminal stenosis with mass effect on the L5 nerves. L4-5 disc bulge with mild left, moderate right foraminal narrowing. T12-L1 small disc protrusion with mild central canal stenosis. 3. HTN, depression, anxiety, asthma, recent melanoma 4. Chronic neck pain Plan: I recommend L5-S1 laminectomy fixation fusion and PLIF. Described risk included bleeding, infection, neurological injury, infection, blindness, csf leak, medical complication, adjacent disease, hardware failure, , continued pain, and need for further procedures or surgeries. In order to decompress the bilateral L5 nerves he will require full bilateral facetectomies which will destabilize the spine and require pedicle screw fixation. He would like to proceed with surgery. Time Spent with the Patient I have personally spent 20 minutes on this date, directly related to today's patient visit, including pre and post visit work, for this date of service. Time listed does not include time spent on separately billable services (more content not included)... Normal [facility] XR lumbar spine AP/LAT/FLX/E XTon 07-11-2022 XR lumbar spine AP/LAT/FLX/EXT [facility] [place] [address] XRay Report Signed Patient: Donell Dumont MR#: [id number] : 1975 Acct:[id number] Age/Sex: 47 / M ADM Date: 07/11/22 Loc: XD Room: Type: [facility] CLI Attending Dr: NON STAFF Copies to: NON STAFF Ordering Provider: NON STAFF Date of Service: 07/11/22 XR/XR lumbar spine AP/LAT/FLX/EXT: M54.50, M54.16, M51.26, M51.36 LUMBAR SPINE - 4 views CLINICAL HISTORY: Left leg numbness and tingling with lower back pain for years. COMPARISON: None FINDINGS: Vertebral body heights appear maintained. Moderate disc space narrowing L4-L5 and L5-S1. No pathological motion. XR/XR lumbar spine AP/LAT/FLX/EXT IMPRESSION: MODERATE DISC SPACE NARROWING AT L4-S1. Impression dictated by: Damián Epstein Jr., Yulia07/11/2022 4:01 PM Dictation Location: [facility]- Transcribed By: [facility] 07/11/22 1601 Dictated By: Damián Epstein Jr, DO 07/11/22 1600 Signed By: 07/11/22 1601 [facility] Neurosurgery Office/Clinic N zulma 07-10-2022 Neurosurgery Office/Clinic Note Chief Complaint Patient is being seen for back. History of Present Illness This is a very pleasant 47 year old male seen in referral at the request of Gloria Gutierrez PA-C for lumbar disc displacement and spondylosis. He has had low back pain since age 19, had occasional flareups over the years. The pain has progressively worsened. It is now constant, aching and intermittently stabbing, varies between 1?9/10 in severity. He is tingling into the B/L buttocks and hamstrings, numbness in the quadriceps, L>R, with aching in the left lateral calf to the ankle. Movement such as walking, standing, bending aggravate the pain. He can only stand about 5 minutes then needs to sit down. No weakness, no bladder or bowel dysfunction. The pain is affecting his quality of life. He has had multiple injections through pain management since 2017. The injections initially helped quite a bit, however they do not last as long anymore. Of note, he saw Dr. Sandie Luther, neurosurgeon at [facility] last fall, no surgery recommended. Back: Low back pain x years, progressive. Constant aching, intermittent stabbing, 1?9/10. Low back pain > legs Neck: Chronic neck pain Legs: Pain, numbness and tingling in B/L lower extremities, 2/10 in severity, L>R Care team: Dr. Mcgraw, pain management Dr. 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 L4-5 disc bulge with mild left, moderate right foraminal narrowing. T12-L1 small disc protrusion with mild central canal stenosis. Review of Systems General Adult ROS Fatigue: Yes Weakness: Yes Cardiovascular Chest pain/pressure: No EENMT Hearing loss: Yes Vision Changes: No Gastrointestinal Abdominal pain: Yes Constipation: Yes Diarrhea: Yes Heartburn: Yes Nausea: No Vomiting: No Genitourinary Frequency: Yes Urgency: No Urinary Incontinence: No Hematologic/Lymphatic Musculoskeletal Back pain: Yes Other Musculoskeletal: Yes Neurological Numbness: Yes Psychiatric Respiratory Cough: No Shortness of breath: No Skin Rash: No Physical Exam Vitals & Measurements HR: 72 (Peripheral) BP: 124/72 HT: 191 cm WT: 95.8 kg WT: 95.8 kg (Dosing) BMI: 26.26 Additional Vitals BP Position/Location: Sitting, Left arm General: Alert and oriented, well nourished, no acute distress. Eye: Normal conjunctiva, no scleral icterus. HENT: Normocephalic, atraumatic, oral mucosa pink and moist, dentition intact. Dressing over left ear, recent melanoma removal Neck: Supple. Pulmonary: Clear to auscultation, non-labored respiration. Cardiovascular: Normal rate, regular rhythm, no murmur, no edema. Abdomen: Soft, nontender Skin: Normal temperature and texture. Psychiatric: Appropriate judgment and insight, appropriate mood and affect. NEURO EXAM: Pupils are equal bilaterally and reactive to light. No eye deviation at primary gaze. Extraocular movements are full. Face is symmetric, facial sensation intact, tongue midline Hearing is intact to finger rub Motor: Upper Extremity Strength: 5/5 Lower Extremity Strength: 5/5 Reflexes: Reflexes of the upper extremities are 2+ biceps Reflexes of the lower extremities are 2+ patella, Achilles absent Mims?s sign is negative. No clonus. Sensation: Grossly intact to light touch throughout except left anterior lateral thigh slightly decreased Gait: Posture is normal. Gait is steady. Base and stride normal. Able to walk on heels and toes Tandem gait intact Musculoskeletal: Spine: no visible deformities or step offs Lumbar flexion to 45 degrees, extension limited. Both elicit pain Straight leg raising negative Tender to palpation midline cervical, upper thoracic and lower lumbar spine Straight leg raising negative Assessment/Plan Assessment: 1. Low back pain x years, progressive with B/L radiculopathy, L>R. Low back pain > legs. 2. MRI Lumbar 10/27/2021: L5-S1 disc bulge with moderate left, severe right neuroforaminal stenosis with mass effect on the L5 nerve root. L4-5 disc bulge with mild left, moderate right foraminal narrowing. T12-L1 small disc protrusion with mild central canal stenosis. 3. HTN, depression, anxiety, asthma, recent melanoma 4. Chronic neck pain Plan: 1. Standing lumbar x-ray (more content not included)... Normal [facility] Provider Letteron 07-10-2022 Provider Letter Gloria Gutierrez PA-C [facility], [facility] [address] [place] [address] Re: Donell Dumont Date of Visit: 07/10/2022 Dear Gloria Gutierrez PA-C, Thank you for your referral and allowing me to contribute to the care of your patient: Donell Dumont Attached is my office note where you will find my assessment and recommendations from our encounter. My office?s contact information: [facility] [address], [phone] Let me know if you have any questions or concerns. Sincerely, LUCY Gonzalez Providers: Jack Ortega D.O. The following document(s) were included in the letter: July 10, 2022 15:09:50 EDT - (07/10/2022) Neurosurgery Office Visit Note Normal [facility] Dermatopathologyon Dermatopathology Name DONELL DUMONT Pathologist: DEVIN JORGE MD Date of Procedure: 06/27/2022 Date Received: 06/28/2022 Date Reported 07/02/2022 Submitting Physician: RAAD CLINE MD, Location: [facility] Other External # FINAL DIAGNOSIS SKIN, DEBULK (L) HELIX (B,C,D): ATYPICAL MELANOCYTIC HYPERPLASIA AND DERMAL NEVUS, SEE NOTE. Note: Microscopic examination reveals a specimen that extends into the subcutaneous fat. An area with horizontally oriented collagen and vertically oriented vessels is present. In Slide A1, there are increased single melanocytes along the dermal-epidermal junction. There are nested and single melanocytes in the dermis that display maturation toward the base. A step section was performed. The atypical melanocytic hyperplasia could represent residual melanoma in situ. No invasive melanoma is seen. Electronically Signed Out by DEVIN JORGE M.D. Electronically Signed Out By DEVIN JORGE MD/[facility] By the signature on this report, the individual or group listed as making the Final Interpretation/Diagno sis certifies that they have reviewed this case. Diagnostic interpretation performed at [facility] [address] [facility] [address] Clinical History: Rule out benign nevus vs. melanoma. B, C, D. ([place] office). Specimens Submitted As: A: SKIN, DEBULK (L) HELIX (B,C,D) Gross Description: Received in formalin are three shine pieces of skin. 1.) Received in formalin, labeled B , is a shine, ellipsoid piece of skin measuring [id number], oriented by the surgeon with orange ink on one margin and black ink on the opposite margin. The specimen is embedded en face in toto in one block. 2.) Received in formalin, labeled C , is a shine, ellipsoid piece of skin measuring [id number], oriented by the surgeon with blue ink on one margin and black ink on the opposite margin. The specimen is embedded en face in toto in one block. 3.) Received in formalin, labeled D , is a shine, ellipsoid piece of skin measuring [id number], oriented by the surgeon with green ink on one margin and black ink on the opposite margin. The specimen is embedded en face in toto in one block. dcp/06/29/2022 [facility]at[facility] [place], [place] [address] [place] [address] [facility] Comment on above: Performed By: #### D #### Dermatopathology Dermatopathologyon 3 Dermatopathology Name: DONELL DUMONT Pathologist: DEVIN JORGE MD Date of Procedure: 05/28/2022 Date Received: 05/28/2022 Date Reported 05/31/2022 Submitting Physician: RAAD CLINE MD, Location: [facility] Copy To/Referring/Attendin g: MD SPARKLE GLOVER FINAL DIAGNOSIS 4 SLIDES, [facility], #[id number] (BX: 05/02/2022) SKIN, LEFT SUPERIOR POSTERIOR HELIX, SHAVE BIOPSY: MALIGNANT MELANOMA, BRESLOW THICKNESS 0.5 MM IN ASSOCIATION WITH A DERMAL NEVUS, SEE NOTE. Note: Microscopic examination reveals a specimen that extends into the dermis. There is at least mild to moderate solar elastosis and there is an asymmetric proliferation of nested and single atypical melanocytes throughout all layers of the epidermis. There are occasional nests of atypical melanocytes in the dermis and there are nested and single benign appearing melanocytes in the dermis. The melanocytes stain with antibodies against SOX-10, and the atypical melanocytes stain with antibodies against PRAME. Electronically Signed Out by DEVIN JORGE M.D. CANCER SUMMARY REPORT A. 4 SLIDES, [facility]ATHOLOGY [facility]ORY [facility], #[id number] (BX: 05/02/2022): SPECIMEN Procedure: Biopsy, shave Specimen Laterality: Left TUMOR Tumor Site: External ear: Left superior posterior helix Histologic Type: Possibly lentigo maligna melanoma Maximum Tumor (Breslow) Thickness (Millimeters): 0.5 mm Ulceration: Not identified Anatomic (Gregg) Level: III (melanoma fills and expands papillary dermis) Mitotic Rate: None identified Microsatellite(s): Not identified Lymphovascular Invasion: Not identified Neurotropism: Not identified Tumor-Infiltrating Lymphocytes: Not identified Tumor Regression: Not identified MARGINS Margin Status for Invasive Melanoma: All margins negative for invasive melanoma Closest Margin(s) to Invasive Melanoma: Not possible Distance from Invasive Melanoma to Closest Peripheral Margin: 2 mm Distance from Invasive Melanoma to Deep Margin: 0.2 mm Margin Status for Melanoma in situ: All margins negative for melanoma in situ Distance from Melanoma in Situ to Closest Peripheral Margin: 0.4 mm Distance from Melanoma in Situ to Deep Margin: 0.2 mm PATHOLOGIC STAGE CLASSIFICATION (pTNM, AJCC 8th Edition) Reporting of pT categories is based on information available to the pathologist at the time the report is issued. As per the AJCC (Chapter 1, 8th Ed.) it is the managing physician?s responsibility to establish the final pathologic stage based upon all pertinent information, including but potentially not limited to this pathology report. pT Category: pT1a ADDITIONAL FINDINGS Additional Findings: None ADDITIONAL TESTING Wind Science And Planning Blocks: Normal Block: None Tumor Block: A1 Electronically Signed Out By DEVIN JORGE MD/HUDSON Diagnostic interpretation performed at [facility] Dermatopath Lab [address] [place], [place] [id number], [facility] [address] Clinical History: 4 MM PAPULE, NEOPLASM OF UNSPECIFIED BEHAVIOR VS. BASAL CELL CARCINOMA Specimens Submitted As: A: 4 SLIDES, DERMATOPATHOLOGY LABORATORY [facility], #[id number] (BX: 05/02/2022) Gross Description: Received for consultation from Dermatopathology Laboratory of [facility] are four slides labeled [id number] (BX: 05/02/2022) along with the corresponding pathology report. Slide/Block Description 4 SLIDES, [id number]. Keep Slides: N Slides Returned: N Personal Consult: N [facility] Comment on above: Performed By: #### D #### Dermatopathology XR hip LT min 2V(w/wo pelvis )*on 05-25-2022 XR hip LT min 2V(w/wo pelvis)* [facility] [place] [address] [place] [address] XRay Report Signed Patient: Donell Dumont MR#: [id number] : 1975 Acct:[id number] Age/Sex: 47 / M ADM Date: 05/25/22 Loc: XD Room: Type: [facility] Attending Dr: Jack Ortega DO Copies to: Jack Ortega DO Ordering Provider: Jack Ortega DO Date of Service: 05/25/22 XR/XR hip LT min 2V(w/wo pelvis)*: PAIN LEFT HIP - 2 views: CLINICAL HISTORY: Posterior left hip pain that radiates around to the groin and thigh. COMPARISON: None FINDINGS: No acute bony process or significant degenerative change of the left hip. XR/XR hip LT min 2V(w/wo pelvis)* IMPRESSION: NO ACUTE BONY PROCESS OR SIGNIFICANT DEGENERATIVE CHANGE INVOLVING THE LEFT HIP.. Impression dictated by: Damián Epstein Jr., DDeanODean05/25/2022 6:27 PM Dictation Location: [place] [address] Transcribed By: KIERA 05/25/221826 Dictated By: Damián Epstein Jr, DO 05/25/221825 Signed By: 05/25/221826 [facility] 05-17-2022 PAVEL Telephone (HILARIO) DONELL DUMONT ([id number]) 1975 M Date Time Provider Department 05/17/22 SHYANNE RODRÍGUEZ During your visit today, we recorded the following information about you: Shyanne Rodríguez APRN.COOPERER 05/17/2022 4:11 PM Signed LVM: updated on MRE which shows no signs of IBD. +constipation. L5-S1 degenerative narrowing in the spine and a 2cm benign R renal cyst. Advised follow up OV for ongoing symptoms. Allergies As of Date: 05/17/2022 (No Known Allergies) Date Reviewed: 03/13/2022 Reviewed by: Francesca Darnell RN - Fully Assessed Reason for Visit: Results [95] Prescriptions as of 05/17/2022 - omeprazole (PRILOSEC) 40 mg capsule TAKE 1 CAPSULE BY MOUTH ONCE DAILY - glucagon (GLUCAGEN) 1 mg/mL injection Inject 1 mg intravenously one time only for 1 dose. For MRI Enterography, Inject 1 mg intravenously, as directed. Slow push at the appropriate time during MRI Scan - pregabalin (LYRICA) 50 mg capsule TAKE 1 CAPSULE (50 MG TOTAL) BY MOUTH IN THE MORNING AND 1 CAPSULE (50 MG TOTAL) BEFORE BEDTIME. - rizatriptan (MAXALT) 5 mg tablet TAKE 1 TABLET BY MOUTH AT ONSET OF MIGRAINE MAY REPEAT 1 TAB IN 2HRS IF NEEDED - colesevelam (WELCHOL) 625 mg tablet START WITH 1 TABLET AT BEDTIME THEN INCREASE TO 2 TABLETS IF DIARRHEA PERSISTS - acetaminophen (TYLENOL) 500 mg tablet Take 1,300 mg by mouth. - ALPRAZolam (XANAX) 0.5 mg tablet Take 0.5 mg by mouth. - baclofen (LIORESAL) 20 mg tablet TAKE 1 TABLET BY MOUTH EVERYDAY AT BEDTIME - benazepril (LOTENSIN) 10 mg tablet Take 10 mg by mouth once daily. - benazepril/hydrochlor othiazide (LOTENSIN HCT ORAL) - cetirizine (ZYRTEC) 10 mg tablet - escitalopram oxalate (LEXAPRO) 20 mg tablet Take 20 mg by mouth. - fremanezumab-vfrm (AJOVY AUTOINJECTOR) 225 mg/1.5 mL auto-injector - rosuvastatin (CRESTOR) 20 mg tablet Take 20 mg by mouth. Facility-Administered Medications as of 05/17/2022 - NaCl 0.9% iv infusion Problem List As Of Date: 05/17/2022 (None) Encounter Status:Closed by SHYANNE RODRÍGUEZ on 05/17/22 [facility] 04-30-2022 PAVEL Telephone (HILARIO) DONELL DUMONT ([id number]) 1975 M Date Time Provider Department 04/30/22 VASHTI LLAMAS During your visit today, we recorded the following information about you: Edi Vee LPN 04/30/2022 2:06 PM Addendum Patient calling the office requesting MRE order , Facesheet and OV note to be faxed to [facility]. I did fax everything over the patient is requesting. Faxed it to [phone]. I did receive confirmation that the fax did go through. The patient is aware he has to get the disk for Dr. Llamas to read the MRE. Patient verbalized good understanding. Edi Vee ISH Allergies As of Date: 04/30/2022 (No Known Allergies) Date Reviewed: 03/13/2022 Reviewed by: Francesca Darnell RN - Fully Assessed Reason for Visit: Patient Question [2380] Cmt: Fax MRE orders to [facility] Prescriptions as of 04/30/2022 - omeprazole (PRILOSEC) 40 mg capsule TAKE 1 CAPSULE BY MOUTH ONCE DAILY - glucagon (GLUCAGEN) 1 mg/mL injection Inject 1 mg intravenously one time only for 1 dose. For MRI Enterography, Inject 1 mg intravenously, as directed. Slow push at the appropriate time during MRI Scan - pregabalin (LYRICA) 50 mg capsule TAKE 1 CAPSULE (50 MG TOTAL) BY MOUTH IN THE MORNING AND 1 CAPSULE (50 MG TOTAL) BEFORE BEDTIME. - rizatriptan (MAXALT) 5 mg tablet TAKE 1 TABLET BY MOUTH AT ONSET OF MIGRAINE MAY REPEAT 1 TAB IN 2HRS IF NEEDED - colesevelam (WELCHOL) 625 mg tablet START WITH 1 TABLET AT BEDTIME THEN INCREASE TO 2 TABLETS IF DIARRHEA PERSISTS - acetaminophen (TYLENOL) 500 mg tablet Take 1,300 mg by mouth. - ALPRAZolam (XANAX) 0.5 mg tablet Take 0.5 mg by mouth. - baclofen (LIORESAL) 20 mg tablet TAKE 1 TABLET BY MOUTH EVERYDAY AT BEDTIME - benazepril (LOTENSIN) 10 mg tablet Take 10 mg by mouth once daily. - benazepril/hydrochlor othiazide (LOTENSIN HCT ORAL) - cetirizine (ZYRTEC) 10 mg tablet - escitalopram oxalate (LEXAPRO) 20 mg tablet Take 20 mg by mouth. - fremanezumab-vfrm (AJOVY AUTOINJECTOR) 225 mg/1.5 mL auto-injector - rosuvastatin (CRESTOR) 20 mg tablet Take 20 mg by mouth. Facility-Administered Medications as of 04/30/2022 - NaCl 0.9% iv infusion Problem List As Of Date: 04/30/2022 (None) Encounter Status:Closed by EDI VEE LPN on 04/30/22 [facility] 03-15-2022 PAVEL Telephone (HILARIO) DONELL DUMONT ([id number]) 1975 M Date Time Provider Department 03/15/22 SHYANNE RODRÍGUEZ During your visit today, we recorded the following information about you: Shyanne Rodríguez APRN.COOPERER 03/15/2022 2:39 PM Signed LVM: Updated pt on EGD/colon and path results. Neg HP, sprue, colitis, and ileitis on bx. Mod gastritis on EGD. Colon polyp was a TA- due for repeat in 5 years. Asked him to schedule the ordered MRE given symptom severity to r/o more proximal small bowel Crohn's. Can resume the omeprazole for the dysphagia and gastritis seen on EGD. Allergies As of Date: 03/15/2022 (No Known Allergies) Date Reviewed: 03/13/2022 Reviewed by: Francesca Darnell RN - Fully Assessed Reason for Visit: Results [95] Prescriptions as of 03/15/2022 - glucagon (GLUCAGEN) 1 mg/mL injection Inject 1 mg intravenously one time only for 1 dose. For MRI Enterography, Inject 1 mg intravenously, as directed. Slow push at the appropriate time during MRI Scan - pregabalin (LYRICA) 50 mg capsule TAKE 1 CAPSULE (50 MG TOTAL) BY MOUTH IN THE MORNING AND 1 CAPSULE (50 MG TOTAL) BEFORE BEDTIME. - rizatriptan (MAXALT) 5 mg tablet TAKE 1 TABLET BY MOUTH AT ONSET OF MIGRAINE MAY REPEAT 1 TAB IN 2HRS IF NEEDED - colesevelam (WELCHOL) 625 mg tablet START WITH 1 TABLET AT BEDTIME THEN INCREASE TO 2 TABLETS IF DIARRHEA PERSISTS - acetaminophen (TYLENOL) 500 mg tablet Take 1,300 mg by mouth. - ALPRAZolam (XANAX) 0.5 mg tablet Take 0.5 mg by mouth. - baclofen (LIORESAL) 20 mg tablet TAKE 1 TABLET BY MOUTH EVERYDAY AT BEDTIME - benazepril (LOTENSIN) 10 mg tablet Take 10 mg by mouth once daily. - benazepril/hydrochlor othiazide (LOTENSIN HCT ORAL) - cetirizine (ZYRTEC) 10 mg tablet - escitalopram oxalate (LEXAPRO) 20 mg tablet Take 20 mg by mouth. - fremanezumab-vfrm (AJOVY AUTOINJECTOR) 225 mg/1.5 mL auto-injector - rosuvastatin (CRESTOR) 20 mg tablet Take 20 mg by mouth. - omeprazole (PRILOSEC) 40 mg capsule Take 1 capsule by mouth once daily. Facility-Administered Medications as of 03/15/2022 - NaCl 0.9% iv infusion Problem List As Of Date: 03/15/2022 (None) Encounter Status:Closed by SHYANNE RODRÍGUEZ on 03/15/22 [facility] Telephone (HILARIO) DONELL DUMONT ([id number]) 1975 M Date Time Provider Department 03/15/22 VASHTI LLAMAS During your visit today, we recorded the following information about you: Gita Hector RN 03/15/2022 4:00 PM Signed ----- Message from Vashti Llamas DO sent at 03/15/2022 1:11 PM EST ----- Please review path from EGD/colonoscopy with pt which reveals normal small bowel mucosa, normal gastric mucosa, normal TI and random colon bx, 1 TA removed. Repeat EGD PRN. Repeat colonoscopy in 5 yrs. MRE ordered after procedure. Follow up in the office with Shyanne. Thanks cl Gita Hector RN 03/15/2022 4:04 PM Signed Results were reviewed with pt. He states the MRE is being scheduled out into June at [facility]. He is going to look for an appt out towards [place] if able. He will call office to have the orders faxed once he finds a facility. Sending as . [address]. Gita Hector RN Allergies As of Date: 03/15/2022 (No Known Allergies) Date Reviewed: 03/13/2022 Reviewed by: Francesca Darnell RN - Fully Assessed Reason for Visit: Results [95] Prescriptions as of 05/11/2022 - omeprazole (PRILOSEC) 40 mg capsule TAKE 1 CAPSULE BY MOUTH ONCE DAILY - glucagon (GLUCAGEN) 1 mg/mL injection Inject 1 mg intravenously one time only for 1 dose. For MRI Enterography, Inject 1 mg intravenously, as directed. Slow push at the appropriate time during MRI Scan - pregabalin (LYRICA) 50 mg capsule TAKE 1 CAPSULE (50 MG TOTAL) BY MOUTH IN THE MORNING AND 1 CAPSULE (50 MG TOTAL) BEFORE BEDTIME. - rizatriptan (MAXALT) 5 mg tablet TAKE 1 TABLET BY MOUTH AT ONSET OF MIGRAINE MAY REPEAT 1 TAB IN 2HRS IF NEEDED - colesevelam (WELCHOL) 625 mg tablet START WITH 1 TABLET AT BEDTIME THEN INCREASE TO 2 TABLETS IF DIARRHEA PERSISTS - acetaminophen (TYLENOL) 500 mg tablet Take 1,300 mg by mouth. - ALPRAZolam (XANAX) 0.5 mg tablet Take 0.5 mg by mouth. - baclofen (LIORESAL) 20 mg tablet TAKE 1 TABLET BY MOUTH EVERYDAY AT BEDTIME - benazepril (LOTENSIN) 10 mg tablet Take 10 mg by mouth once daily. - benazepril/hydrochlor othiazide (LOTENSIN HCT ORAL) - cetirizine (ZYRTEC) 10 mg tablet - escitalopram oxalate (LEXAPRO) 20 mg tablet Take 20 mg by mouth. - fremanezumab-vfrm (AJOVY AUTOINJECTOR) 225 mg/1.5 mL auto-injector - rosuvastatin (CRESTOR) 20 mg tablet Take 20 mg by mouth. Facility-Administered Medications as of 05/11/2022 - NaCl 0.9% iv infusion Problem List As Of Date: 03/15/2022 (None) Encounter Status:Closed by GITA HECTOR RN on 05/11/22 Normal [facility] ANES POSTPROC EVALon 023 ANES POSTPROC EVAL HNO ID: [id number] Author: Leslye Coy APRN.CRNA Service: Anesthesiology Author Type: Nurse Lithographic Proofer Type: Anesthesia Postprocedure Evaluation Filed: 03/13/2022 10:59 AM Note Text: POST ANESTHESIA EVALUATION NOTE : 1975 Procedure Summary Date: 03/13/22 Room / Location: Ambulatory Surgery Anesthesia Start: 1021 Anesthesia Stop: 1059 Procedures: COLONOSCOPY DIAGNOSTIC EGD DIAGNOSTIC Diagnosis: Diarrhea, unspecified type Esophageal dysphagia (Dysphagia) Scheduled Providers: Vashti Llamas DO Responsible Provider: Leslye Coy APRN.CRNA Anesthesia Type: MAC ASA Status: 3 Anesthesia Type: MAC Last Vitals Vitals Value Taken Time BP 154/81 03/13/22 1059 Temp 03/13/22 1059 Pulse 73 03/13/22 1057 Resp 18 03/13/22 1057 SpO2 95 % 03/13/22 1057 Post Anesthesia Patient Status Patient Evaluation: bedside. Anticipated Disposition: phase 2 then home. Neurological Status: sleepy but arousable. Pulmonary Status: breathing comfortably on supplemental oxygen Airway Control: returned to baseline unsupported. Cardiovascular Status: stable. Pain Management: clinically adequate Postoperative Hydration: acceptable. Intraoperative Events: no significant anesthesia events Post Operative Nausea/Vomiting Status: no significant post operative nausea or vomiting Recommendation: continue current plan of care. Anesthesia Observations No Documentation SIGNATURE: Leslye Coy APRN.RESEARCH EXECUTIVE PATIENT NAME: Donell Dumont DATE: March 13, 2022 TIME: 10:59 AM CSN: [id number] Normal [facility] Colonoscopyon 03-13-2022 Colonoscopy [facility] Gastroenterology Gastrointestinal Endoscopy Patient Name: Donell Dumont Procedure Date: 03/13/2022 10:34 AM Date of : 1975 Admit Type: Outpatient Age: 46 Room: [place] [address] Gender: Male Note Status: Pediatrician Override Attending MD: Vashti Llamas DO Procedure: Colonoscopy Indications: Chronic diarrhea Providers: Vashti Llamas DO Patient Profile: This is a 46 year old male. Refer to note in patient chart for documentation of history and physical. Last Colonoscopy: 2020. Referring Physician: Paige Rizzo (Referring ), Jack Ortega (Referring MD) Medicines: See the Anesthesia note for documentation of the administered medications Complications: No immediate complications. Requesting Provider: Procedure: Pre-Anesthesia Assessment: - Prior to the procedure, a History and Physical was performed, and patient medications and allergies were reviewed. The patient's tolerance of previous anesthesia was also reviewed. The risks and benefits of the procedure and the sedation options and risks were discussed with the patient. All questions were answered, and informed consent was obtained. Prior Anticoagulants: The patient has taken no anticoagulant or antiplatelet agents. ASA Grade Assessment: II - A patient with mild systemic disease. After reviewing the risks and benefits, the patient was deemed in satisfactory condition to undergo the procedure. After I obtained informed consent, the scope was passed under direct vision. Throughout the procedure, the patient's blood pressure, pulse, and oxygen saturations were monitored continuously. The Colonoscope was introduced through the anus and advanced to the cecum, identified by appendiceal orifice and ileocecal valve. I was present and participated during the entire procedure, including non-barreto portions, and during the administration and monitoring of Moderate Sedation. The colonoscopy was performed without difficulty. The patient tolerated the procedure well. The quality of the bowel preparation was fair. The terminal ileum, ileocecal valve, appendiceal orifice, and rectum were photographed. Scope Withdrawal Time: 0 hours 10 minutes 56 seconds Moderate Sedation: MAC anesthesia was administered by the anesthesia team. Findings: The terminal ileum appeared normal. Biopsies were taken with a cold forceps for histology. Estimated blood loss was minimal. A 3 mm polyp was found in the transverse colon. The polyp was sessile. The polyp was removed with a cold biopsy forceps. Resection and retrieval were complete. Estimated blood loss was minimal. Scattered small-mouthed diverticula were found in the left colon. There was no evidence of diverticular bleeding. Non-bleeding internal hemorrhoids were found during retroflexion. The hemorrhoids were small. The exam was otherwise without abnormality. Biopsies for histology were taken with a cold forceps from the right colon and left colon for evaluation of microscopic colitis. Estimated blood loss was minimal. Impression: - Preparation of the colon was fair. - The examined portion of the ileum was normal. Biopsied. - One 3 mm polyp in the transverse colon, removed with a cold biopsy forceps. Resected and retrieved. - Diverticulosis in the left colon. There was no evidence of diverticular bleeding. - Non-bleeding internal hemorrhoids. - The examination was otherwise normal. - Biopsies were taken with a cold forceps from the right colon and left colon for evaluation of microscopic colitis. Recommendation: - Patient has a contact number available for emergencies. The signs and symptoms of potential delayed complications were discussed with the patient. Return to normal activities tomorrow. Written discharge instructions were provided to the patient. - Continue present medications. - Await pathology results. - Repeat colonoscopy in 5 years for surveillance. - Return to referring physician. Procedure Code(s): --- Professional --- 92085, Colonoscopy, flexible; with biopsy, single or multiple Diagnosis Code(s): --- Professional --- K64.8, Other hemorrhoids D12.3, Benign neoplasm of transverse colon (hepatic flexure or splenic flexure) K52.9, Noninfective gastroenteritis and colitis, unspecified K57.30, Diverticulosis of large intestine without perforation or abscess without bleeding CPT copyright 2020 [employer]. All rights reserved. The codes documented in this report are preliminary and upon hand stitcher review may be revised to meet current compliance requirements. Scope In: 10:35:45 AM Scope Out: 10:55:34 AM DO Vashti Flores DO 03/13/2022 11:00:52 AM This report has been signed electronically by Vashti Llamas DO Number of Addenda: 0 Note Initiated On: 03/13/2022 10:34 AM Estimated Blood Loss: Estimated blood loss (more content not included)... Normal [facility] HISTORY PHYSICALon HISTORY PHYSICAL HNO ID: [id number] Author: Vashti Llamas DO Service: Gastroenterology Author Type: Physician Type: HANDP Filed: 03/13/2022 10:16 AM Note Text: HISTORY AND PHYSICAL Donell Dumont, 46 year old male Current history and physical on file: No Is a new History and Physical required for today's visit? Yes Indication for procedure: Diarrhea PROCEDURE(S) SCHEDULED FOR: Colonoscopy with or without biopsies and with or without removal of polyps or lesions, dilation (any means), treatment of bleeding (any means), based on clinical findings. and EGD (Esophagogastroduoden oscopy) with or without biopsies, removal of polyps or lesions, dilation ( any means), treatment of bleeding ( any means), Barrx treatment of Kris's Esophagus, image tube placement or cryo therapy treatment based on clinical findings. BASELINE BEHAVIOR: Calm BASELINE ORIENTATION: A AND O x3 All medications and allergies reviewed: Yes Skin Assessment: Warm dry mucus membranes pink Airway/Respiratory Assessment: Airway: visualization of the uvula- Yes Mouth: opening greater than 2 fingerbreadths- Yes Neck: full range of motion- Yes Breath sounds clear/equal- Yes Cardiac Assessment: Regular rate and rhythm without murmur Abdominal Assessment: Abdomen soft, non-tender, no masses or organomegaly. Sedation Plan: MAC Additional Comments: None Vashti Llamas DO Normal [facility] NURSING PROGon 03-13-2022 NURSING PROG HNO ID: [id number] Author: Francesca Darnell RN Service: ? Author Type: ? Type: Nursing Progress Note Filed: 03/13/2022 11:06 AM Note Text: POST OP LEARNING RESPONSE INSTRUCTION PROVIDED TO: Patient and family member METHOD OF INSTRUCTION: Written instruction - handouts Verbal instruction PATIENT / FAMILY RESPONSE: Verbalizes understanding of: MEDICAL REGIMEN-Importance of following prescribed medical regimen FOLLOW-UP PLAN: Patient instructed to call with any further issues SUPPLEMENTAL MATERIAL: Procedure discharge instructions REFERRAL (RECOMMENDATION): None Electronically Signed By: Francesca Darnlel RN In Department: AMBULATORY SURGERY [facility] NURSING PROG HNO ID: [id number] Author: Lizbeth Vazquez RN Service: Nursing Author Type: Registered Nurse Type: Nursing Progress Note Filed: 03/13/2022 10:11 AM Note Text: PRE OP LEARNING ASSESSMENT PROCEDURE/SURGERY: GI PROCEDURES: Colonoscopy and EGD READINESS TO LEARN COGNITIVE ABILITY: Alert and oriented MOTIVATION TO LEARN: Eager FAMILY SUPPORT: Unable to assess - Family not present PATIENT LEARNS BEST BY: Individual Instruction FACTORS AFFECTING LEARNING: None PHYSICAL LIMITATIONS AFFECTING LEARNING: None Electronically Signed By: Lizbeth Humphrey RN In Department: AMBULATORY SURGERY [facility] SURGICAL PATHOLOGYon 023 CASE REPORT Normal [facility] Comment on above: Order Comment: Speci men Type: TISSUE SPECIMENOrdering Facility: [facility] Address: [address] [place] [id number] Result Comment: Surg ical Pathology Report Case: [id number] Authorizing Provider: Vashti Llamas DO Collected: 03/13/2022 10:16 AM Ordering Location: Ambulatory Surgery Received: 03/13/2022 10:11 PM Pathologist: Luis Joseph MD Specimens: A) - SMALL INTESTINE BIOPSY, r/o celiac & whipple disease B) - STOMACH BIOPSY, r/o h. pylori C) - TRANSVERSE COLON POLYP D) - TERMINAL ILEUM BIOPSY, r/o crohns E) - COLON RIGHT BIOPSY, r/o microscopic colitis F) - COLON LEFT BIOPSY, r/o microscopic colitis Performed By: #### S ####[facility]ORATORYCLIA [id number] [address] LABCLIA [id number] [address] FINAL DIAGNOSIS Normal [facility] Comment on above: Order Comment: Speci men Type: TISSUE SPECIMENOrdering Facility: [facility] Address: [address] [place] [address] Result Comment: A. S mall intestine, biopsy: - Small bowel mucosa with no diagnostic alteration. - No evidence of celiac sprue or Whipple's disease. B. Stomach, biopsy: - Scant fundic mucosa with no diagnostic alteration. - No evidence of H. pylori. C. Transverse colon, polypectomy: - Tubular adenoma. D. Terminal ileum, biopsy: - Small bowel mucosa with no diagnostic alteration. E. Right colon, biopsy: - Colonic mucosa with no diagnostic alteration. - No evidence of lymphocytic or collagenous colitis. F. Left colon, biopsy: - Colonic mucosa with no diagnostic alteration. - No evidence of lymphocytic or collagenous colitis. Performed By: #### S ####[facility]ORATORYCLIA [id number] [address] LABCLIA [id number] [address] OF [facility] FINAL PERFORMING LAB Normal [facility] Comment on above: Order Comment: Speci men Type: TISSUE SPECIMENOrdering Facility: [facility] Address: [address] [place] [address] Result Comment: Diag nostic interpretation performed at [facility], [address], [place] [address] CLIA# [id number] Credit Review Analyst: Jane Sidhu M.D. Performed By: #### S ####[facility] LABORATORYCLIA [id number] [address] STATES OF [facility] LABCLIA [id number] [address] GROSS DESCRIPTION Normal [facility] Comment on above: Order Comment: Speci men Type: TISSUE SPECIMENOrdering Facility: [facility] Address: [address] [place] [address] Result Comment: A. S MALL INTESTINE BIOPSY Received in formalin are multiple pieces of shine, soft tissue aggregating to 1.4 x 0.2 x 0.1 cm. Totally submitted in one cassette. B. STOMACH BIOPSY Received in formalin is one piece of shine-red, soft tissue measuring 0.4 x 0.3 x 0.2 cm. Totally submitted in one cassette. C. TRANSVERSE COLON POLYP Received in formalin is one piece of shine, soft tissue measuring 0.5 x 0.2 x 0.2 cm. Totally submitted in one cassette. D. TERMINAL ILEUM BIOPSY Received in formalin are multiple pieces of shine, soft tissue aggregating to 1.2 x 0.3 x 0.2 cm. Totally submitted in one cassette. E. COLON RIGHT BIOPSY Received in formalin are multiple pieces of shine, soft tissue aggregating to 1.5 x 0.4 x 0.1 cm. Totally submitted in two cassettes. F. COLON LEFT BIOPSY Received in formalin are multiple pieces of shine, soft tissue aggregating to 3.0 x 0.2 x 0.1 cm. Totally submitted in two cassettes. Gross examination performed at [facility], [address] [place] [address] JT 03/14/2022 1:36 AM Performed By: #### S ####[facility] LABORATORYCLIA [id number] [place] [id number] [facility] [facility] LABCLIA [id number] [facility] [address] [place] Upper GI endoscopyon 023 Upper GI endoscopy [facility] Gastroenterology Gastrointestinal Endoscopy Patient Name: Donell Dumont Procedure Date: 03/13/2022 10:15 AM Date of : 1975 Admit Type: Outpatient Age: 46 Room: [facility] Gender: Male Note Status: Pediatrician Override Attending MD: Vashti Llamas DO Procedure: Upper GI endoscopy Indications: Dysphagia, Diarrhea Providers: Vashti Llamas DO Patient Profile: This is a 46 year old male. Refer to note in patient chart for documentation of history and physical. Referring Physician: Paige Rizzo (Referring MD), Jack Ortega (Referring MD) Medicines: See the Anesthesia note for documentation of the administered medications Complications: No immediate complications. Requesting Provider: Procedure: Pre-Anesthesia Assessment: - Prior to the procedure, a History and Physical was performed, and patient medications and allergies were reviewed. The patient's tolerance of previous anesthesia was also reviewed. The risks and benefits of the procedure and the sedation options and risks were discussed with the patient. All questions were answered, and informed consent was obtained. Prior Anticoagulants: The patient has taken no anticoagulant or antiplatelet agents. ASA Grade Assessment: II - A patient with mild systemic disease. After reviewing the risks and benefits, the patient was deemed in satisfactory condition to undergo the procedure. After obtaining informed consent, the endoscope was passed under direct vision. Throughout the procedure, the patient's blood pressure, pulse, and oxygen saturations were monitored continuously. The Endoscope was introduced through the mouth, and advanced to the second part of duodenum. I was present and participated during the entire procedure, including non-barreto portions, and during the administration and monitoring of Moderate Sedation. The upper GI endoscopy was accomplished without difficulty. The patient tolerated the procedure well. Moderate Sedation: MAC anesthesia was administered by the anesthesia team. Findings: No endoscopic abnormality was evident in the esophagus to explain the patient's complaint of dysphagia. Localized moderately erythematous mucosa without bleeding was found in the gastric body and in the gastric antrum. Biopsies were taken with a cold forceps for Helicobacter pylori testing. Biopsies were taken with a cold forceps for histology. Estimated blood loss was minimal. The examined duodenum was normal. Biopsies were taken with a cold forceps for histology. Biopsies for histology were taken with a cold forceps for evaluation of celiac disease. Estimated blood loss was minimal. Impression: - No endoscopic esophageal abnormality to explain patient's dysphagia. - Erythematous mucosa in the gastric body and antrum. Biopsied. - Normal examined duodenum. Biopsied. Recommendation: - Patient has a contact number available for emergencies. The signs and symptoms of potential delayed complications were discussed with the patient. Return to normal activities tomorrow. Written discharge instructions were provided to the patient. - Resume previous diet. - Continue present medications. - Await pathology results. - Repeat upper endoscopy is not recommended for surveillance. - Return to referring physician. Procedure Code(s): --- Professional --- 05883, Esophagogastroduodeno scopy, flexible, transoral; with biopsy, single or multiple Diagnosis Code(s): --- Professional --- R13.10, Dysphagia, unspecified K31.89, Other diseases of stomach and duodenum R19.7, Diarrhea, unspecified CPT copyright 2020 [employer]. All rights reserved. The codes documented in this report are preliminary and upon hand stitcher review may be revised to meet current compliance requirements. Scope In: 10:26:18 AM Scope Out: 10:30:32 AM DO Vashti Flores DO 03/13/2022 10:34:32 AM This report has been signed electronically by Vashti Llamas DO Number of Addenda: 0 Note Initiated On: 03/13/2022 10:15 AM Estimated Blood Loss: Estimated blood loss was minimal. Normal [facility] [place] 03-07-2022 PAVEL Telephone (HILARIO) DONELL DUMONT ([id number]) 1975 M Date Time Provider Department 03/07/22 SHYANNE RODRÍGUEZ During your visit today, we recorded the following information about you: Edi Mariusz DENG 03/07/2022 3:16 PM Signed Shyanne Rodríguez APRN.NIEVES Edi Jacksonlayla DENG Dc Edi- can you please call to relay that his stool tests are negative for infection with normal pancreas function? Can continue Welchol long-term if helpful for diarrhea. Thank you! Shyanneelie Dumont Mariusz DENG 03/07/2022 3:16 PM Signed I did talk to the patient and he is aware stool test are negative and pancreas is normal. He did agree to continue taking the Welchol for his diarrhea. Patient verbalized good understanding. Edi Jacksonlayla DENG Allergies As of Date: 03/07/2022 (No Known Allergies) Date Reviewed: 01/01/2022 Reviewed by: Elizabeth Kimble Ma - Fully Assessed Reason for Visit: Results [95] Cmt: Stool studies Prescriptions as of 05/08/2022 - omeprazole (PRILOSEC) 40 mg capsule TAKE 1 CAPSULE BY MOUTH ONCE DAILY - glucagon (GLUCAGEN) 1 mg/mL injection Inject 1 mg intravenously one time only for 1 dose. For MRI Enterography, Inject 1 mg intravenously, as directed. Slow push at the appropriate time during MRI Scan - pregabalin (LYRICA) 50 mg capsule TAKE 1 CAPSULE (50 MG TOTAL) BY MOUTH IN THE MORNING AND 1 CAPSULE (50 MG TOTAL) BEFORE BEDTIME. - rizatriptan (MAXALT) 5 mg tablet TAKE 1 TABLET BY MOUTH AT ONSET OF MIGRAINE MAY REPEAT 1 TAB IN 2HRS IF NEEDED - colesevelam (WELCHOL) 625 mg tablet START WITH 1 TABLET AT BEDTIME THEN INCREASE TO 2 TABLETS IF DIARRHEA PERSISTS - acetaminophen (TYLENOL) 500 mg tablet Take 1,300 mg by mouth. - ALPRAZolam (XANAX) 0.5 mg tablet Take 0.5 mg by mouth. - baclofen (LIORESAL) 20 mg tablet TAKE 1 TABLET BY MOUTH EVERYDAY AT BEDTIME - benazepril (LOTENSIN) 10 mg tablet Take 10 mg by mouth once daily. - benazepril/hydrochlor othiazide (LOTENSIN HCT ORAL) - cetirizine (ZYRTEC) 10 mg tablet - escitalopram oxalate (LEXAPRO) 20 mg tablet Take 20 mg by mouth. - fremanezumab-vfrm (AJOVY AUTOINJECTOR) 225 mg/1.5 mL auto-injector - rosuvastatin (CRESTOR) 20 mg tablet Take 20 mg by mouth. Facility-Administered Medications as of 05/08/2022 - NaCl 0.9% iv infusion Problem List As Of Date: 03/07/2022 (None) Encounter Status:Closed by EDI VEE LPN on 05/08/22 [facility] [place] 03-06-2022 PAVEL Telephone (HILARIO) DONELL DUMONT ([id number]) 1975 Date Time Provider Department 03/06/22 VASHTI LLAMAS During your visit today, we recorded the following information about you: Karissa Betts Ma 03/06/2022 1:13 PM Signed Spoke with patient and confirmed appointment time and prep. Allergies As of Date: 03/06/2022 (No Known Allergies) Date Reviewed: 01/01/2022 Reviewed by: Elizabeth Kimble Ma - Fully Assessed Reason for Visit: Appointment [186] Cmt: E/C Prescriptions as of 03/06/2022 - pregabalin (LYRICA) 50 mg capsule TAKE 1 CAPSULE (50 MG TOTAL) BY MOUTH IN THE MORNING AND 1 CAPSULE (50 MG TOTAL) BEFORE BEDTIME. - rizatriptan (MAXALT) 5 mg tablet TAKE 1 TABLET BY MOUTH AT ONSET OF MIGRAINE MAY REPEAT 1 TAB IN 2HRS IF NEEDED - colesevelam (WELCHOL) 625 mg tablet START WITH 1 TABLET AT BEDTIME THEN INCREASE TO 2 TABLETS IF DIARRHEA PERSISTS - acetaminophen (TYLENOL) 500 mg tablet Take 1,300 mg by mouth. - ALPRAZolam (XANAX) 0.5 mg tablet Take 0.5 mg by mouth. - baclofen (LIORESAL) 20 mg tablet TAKE 1 TABLET BY MOUTH EVERYDAY AT BEDTIME - benazepril (LOTENSIN) 10 mg tablet Take 10 mg by mouth once daily. - benazepril/hydrochlor othiazide (LOTENSIN HCT ORAL) - cetirizine (ZYRTEC) 10 mg tablet - escitalopram oxalate (LEXAPRO) 20 mg tablet Take 20 mg by mouth. - fremanezumab-vfrm (AJOVY AUTOINJECTOR) 225 mg/1.5 mL auto-injector - rosuvastatin (CRESTOR) 20 mg tablet Take 20 mg by mouth. - omeprazole (PRILOSEC) 40 mg capsule Take 1 capsule by mouth once daily. Problem List As Of Date: 03/06/2022 (None) Encounter Status:Closed by KARISSA BETTS MA on 03/06/22 [facility] ANES PRE-OPon 02-26-2022 ANES PRE-OP HNO ID: [id number] Author: Leslye Coy APRN.RESEARCH EXECUTIVE Service: Anesthesiology Author Type: Nurse Lithographic Proofer Type: Anesthesia Preprocedure Evaluation Filed: 03/13/2022 10:33 AM Note Text: ANESTHESIOLOGY DAY OF SURGERY NOTE : 1975 Procedure Information Date/Time: 03/13/22 1030 Scheduled providers: Vashti Llamas DO Procedures: COLONOSCOPY DIAGNOSTIC EGD DIAGNOSTIC Location: Ambulatory Surgery There is no height or weight on file to calculate BMI. Most recent hematocrit and potassium results: No results found for this basename: HCT,HEMATOCRIT,K,POTA SSIUM PONV hx Relevant Problems No relevant active problems CHRONIC LOW BACK PAIN OBESE I - PHYSICAL EVALUATION AIRWAY Patient intubated: No. Tracheostomy tube not present Mallampati: I. TM distance: >3 FB. Neck ROM: full ROM without neurological symptoms. Mouth opening: adequate. Short neck: no. Thick neck: no Rivera present: no DENTAL Dental findings: teeth intact. Additional exam findings: yes. CARDIOVASCULAR Normal cardiovascular observations. PULMONARY Normal pulmonary observations. ABDOMINAL Normal abdominal observations. BACK Normal back observations. II - ANESTHESIA PLAN ASA Score: 2 Anesthetic Plan: MAC The patient is not a current smoker. NPO Status: adequate Beta Hung Administration of chronic beta hung medication not planned. Monitoring Plan Monitoring plan: standard ASA. Post Procedure Analgesic Plan Postoperative analgesic plan: per surgical service. Informed Consent Anesthetic risks, benefits, alternatives, personnel and consent discussed: yes. Patient / Responsible Democrat agrees to proceed: yes Patient / Surrogate agrees to blood products: blood products not planned DNR status not reviewed with patient and/or family prior to surgery. Significant changes in the patient condition since the History and Physical, not otherwise documented in primary service progress note: no. Potential Anesthesia issues that may suggest increased risk of complications or contraindication to planned procedure: none. No vitals data found for the desired time range. Outpatient Medications as of 03/13/2022 Medication Sig - colesevelam (WELCHOL) 625 mg tablet START WITH 1 TABLET AT BEDTIME THEN INCREASE TO 2 TABLETS IF DIARRHEA PERSISTS - acetaminophen (TYLENOL) 500 mg tablet Take 1,300 mg by mouth. - ALPRAZolam (XANAX) 0.5 mg tablet Take 0.5 mg by mouth. - baclofen (LIORESAL) 20 mg tablet TAKE 1 TABLET BY MOUTH EVERYDAY AT BEDTIME - benazepril (LOTENSIN) 10 mg tablet Take 10 mg by mouth once daily. - benazepril/hydrochlor othiazide (LOTENSIN HCT ORAL) - cetirizine (ZYRTEC) 10 mg tablet - escitalopram oxalate (LEXAPRO) 20 mg tablet Take 20 mg by mouth. - fremanezumab-vfrm (AJOVY AUTOINJECTOR) 225 mg/1.5 mL auto-injector - rosuvastatin (CRESTOR) 20 mg tablet Take 20 mg by mouth. - omeprazole (PRILOSEC) 40 mg capsule Take 1 capsule by mouth once daily. No current facility-administered medications on file as of 03/13/2022. I have interviewed and examined the patient. I have reviewed the medical record and/or the pre-anesthesia evaluation, pertinent labs, and test results. This contains updated information obtained within 48 hours of Surgery/Procedure. SIGNATURE: Pat Gomez APRN.CRNA PATIENT NAME: Donell Dumont DATE: February 26, 2022 TIME: 5:50 PM CSN: [id number] Normal [facility] C diff Tox gens Stl Ql CHON+p sheba 02-20-2022 C. difficile toxin genes CHON+probe Ql (Stl) Negative Normal Negative for C. difficile toxin by PCR [facility] Comment on above: Order Comment: Speci men Type: STOOL SPECIMENOrdering Facility: [facility] Address: [address] [place] [address] Performed By: #### 5 [id number] ####[facility] LABCLIA [id number] [place] [address] [place] G lamblia+Cryptosp Ag Stl Ql IAon 02-20-2022 G. lamblia+Cryptosporidiu m sp Ag IA Ql (Stl) CRYPTOSPORIDIUM ANTIGEN BY EIA: Negative for Cryptosporidium by EIA. GIARDIA ANTIGEN BY EIA: Negative for Giardia lamblia by EIA. Normal [facility] Comment on above: Performed By: #### 4 [id number] ####[facility] LABIA [id number] [place] [address] [place] Gastrointestinal pathogens i dentified CHON+probe Nom (Stl)on 02-20-2022 Campylobacter sp DNA CHON+probe Nom (Unsp spec) Not detected Normal Not Detected [facility] Comment on above: Order Comment: Speci men Type: STOOL SPECIMENOrdering Facility: [facility] Address: [address] [place] [address] Performed By: #### 7 9390-1 ####[facility] LABIA [id number] [place] [address] [place] Salmonella sp DNA CHON+probe Ql (Unsp spec) Not detected Normal Not Detected [facility] Comment on above: Order Comment: Speci men Type: STOOL SPECIMENOrdering Facility: [facility] Address: [address] [place] [address] Performed By: #### 7 9390-1 ####[facility] LABCLIA [id number] [place] [address] [place] Shiga toxin stx gene CHON+probe Nom (Unsp spec) Not detected Normal Not Detected [facility] Comment on above: Order Comment: Speci men Type: STOOL SPECIMENOrdering Facility: [facility] Address: [address] [place] [address] Performed By: #### 7 9390-1 ####[facility] LABCLIA [id number] [address] [place] Shigella sp DNA CHON+probe Ql (Unsp spec) Not detected Normal Not Detected [facility] Comment on above: Order Comment: Speci men Type: STOOL SPECIMENOrdering Facility: [facility] Address: [address] [place] [address] Performed By: #### 7 9390-1 ####[facility] LABIA [id number] [address] [place] PANC ELASTASE, FECALon 02-20 PANC ELASTASE, FECAL 589 ug/g Normal >=100 [facility] Comment on above: Order Comment: Speci men Type: STOOL SPECIMENOrdering Facility: [facility] Address: [address] [place] [address] Result Comment: REFE RENCE INTERVAL: Pancreatic Elastase Fecal by Immunoassay Less than 100 ug/g............Severe insufficiency 100 - 199 ug/g................Moderate insufficiency 200 ug/g or greater...........Normal INTERPRETIVE INFORMATION: Pancreatic Elastase Fecal by Immunoassay Reference intervals do not apply for infants less than one month old. Performed by [employer], [address] [place] [address] [email or web address], Abhishek Huitron MD, PHD, Lab. Director Performed By: #### P [facility] ####[employer] PharmaceuticalsIA [id number] [place] [address] Physical Therapy Noteon 01-10 Physical Therapy Note [id number] .[id number] [facility] CNOVon 01-01-2022 CNOV Office Visit (GASTNO ) DONELL DUMONT ([id number]) 1975 M Date Time Provider Department 01/01/22 10:40 AM SHYANNE RODRÍGUEZ During your visit today, we recorded the following information about you: Pulse Blood pressure Weight 71/minute 147/98 96.2 kg Shyanne Rodríguez APRN.COOPERER 01/01/2022 1:53 PM Signed DEPARTMENT OF GASTROENTEROLOGY - NEW PATIENT/CONSULT REASON FOR VISIT Donell Dumont is a 46 year old male who is scheduled for a second opinion on management of IBS. HISTORY OF PRESENT ILLNESS Donell Dumont is a 46 year old male who presents today for an evaluation of IBS. PMH includes acid reflux, IBS, abnormal EKG, adverse effect of anesthesia(vomiting) Anxiety/Depression, Migraines, Asthma, hypercholesteremia, HTN, Pericarditis, chronic back pain, cervical spondylosis, DDD. Reports being diagnosed with IBS since the age of 8. What brought him in for this appointment is the fact that IBS is controlling his life due to the frequency and urgency associated with abdominal ache. Always has to think about what he is doing, where he is going and having to fast to prevent or lessen these symptoms. The symptoms have been fairly consistent over the years. Reports having 6-15 bms a day ranging from liquid to soft in consistency. Has urgency with fluids other than clears as well as with food. Glen his meal, he has to run to the bathroom. Reports occasional BRB in toilet bowl, thinks its from hemorrhoids. Noticed it was exacerbated when he was taking Advil for the arthritis. Now is taking Aleve which he states he has been ok with. In the past, he has worked with a dietitian and tried several diets including elimination, low FODMAP, lactose/gluten free without any relief in symptoms. His 2 biggest triggers are foods with MSG and Nutritional yeast. Reports skipping breakfast and lunch and only eating dinner. With fasting, symptoms are not as bad or urgent. Reports having a total of 4 bowel accidents a year usually related to eating during the day. In the past he has tried Imodium(with some short term relief)/Colestid/Lomo til/Xifaxan/Fiber without any relief in symptoms. Has noticed when he had steroids for the back pain, the diarrheal symptoms/pain were better. 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 Also reports dysphagia for the past few years. Had dilation a few years ago in [place]. Repeat EGD early 2021 showed no strictures, no dilation was done this time per patient. Feels like there is a hiatal hernia, eats small meals. Feels food stuck in the epigastric region and gives it time to go away.At times he will vomit the contents. Overall, dysphagia symptoms are getting worse. Does have acid reflux which he takes PRN TUMS with short term relief. Was taking Omeprazole in the past with good symptom management however stopped taking it due to too many medications at the time. NSAID: Aleve takes for 2 weeks daily, no symptom change with bowels, helps with back pain Meds Fobfbgc-ouyifmtmy-gbw porary fix when traveling. overdoses on it, not taking anything else Xanax lexapro Never smoker Alcohol use:once a month, 1 beer, doesn't impact gut Drug use:None EGD 07/18/2021 Pathological Diagnosis A. Small intestine, biopsy: - Small intestinal mucosa showing no specific pathologic changes - Preserved villous and crypt architecture - Negative for active inflammation B. Stomach, biopsy: - Mild chronic inactive gastritis - No morphologic evidence of H. pylori microorganisms 01/30/2021 Colonoscopy Pathological Diagnosis Colon, random biopsy: - Colonic mucosa showing no specific pathologic changes - Small lymphoid aggregate - Negative for microscopic colitis 06/20/2021 LABS Calcitonin: <2 Gastrin:<10 Vasoactive Intestinal peptide:46.0 03/10/2021 Ph of stool: 6.0 Fecal pancreatic elastase: >500 PMH Si joint injections acid reflux, IBS, abnormal EKG, adverse effect of anesthesia(vomiting), Anxiety/Depression, Asthma, hypercholesteremia, HTN, Pericarditis(now resolved) and cervical spondylosis, DDD. PSH: Cholecystectomy 2011, diarrhea symptoms have been the same Inguinal hernia repair 2008 Hydrocele Excision/repair 2007 Umbilical hernia repair 2012 Lymph node dissection 2012 Current Outpatient Medications Medication Sig Dispense Refill ALPRAZolam (XANAX) 0.5 mg tablet Take 0.5 mg by mouth. escitalopram oxalate (LEXAPRO) 20 mg tablet Take 20 mg by mouth. rosuvastatin (CRESTOR) 20 mg tablet Take 20 mg by mouth. acetaminophen (TYLENOL) 500 mg tablet Take 1,300 mg by mouth. baclofen (LIORESAL) 20 mg tablet TAKE 1 TABLET BY MOUTH EVERYDAY AT BEDTIME benazepril (LOTENSIN) 10 mg tablet Take 10 mg by mouth once daily. benazepril/hydrochlor othiazide (LOTENSIN HCT ORAL) cetirizine (ZY (more content not included)... Normal [facility] XR pre/post mri xrayon 10-28 XR pre/post mri xray [facility] [place] [address] MRI Report Signed Patient: Donell Dumont MR#: [id number] : 1975 Acct:[id number] Age/Sex: 46 / M ADM Date: 10/27/21 Loc: MR Room: Type: [facility] Attending Dr: Sandie Luther MD Copies to: Sandie Luther MD Ordering Provider: Sandie Luther MD Date of Service: 10/27/21 MR/MR lumbar spine wo con: M54.16 ([id number]) XR/XR pre/post mri xray: PRE MRI MR lumbar spine wo con, XR pre/post mri xray 10/27/2021 8:42 PM SIGNS AND SYMPTOMS: Chronic back pain PROTOCOL: Frontal and lateral radiographs of the lumbar spine. Multiplanar multisequence MR images of the lumbar spine were obtained without IV contrast. COMPARISON: 07/06/2016 FINDINGS: Radiographs of the lumbar spine: The bones of the lumbar spine are in anatomic alignment. There is preservation of vertebral body. There is moderate disc height loss at L4-L5 and moderate to severe disc height loss at L5-S1. There is no evidence of fracture or subluxation. The sacroiliac joints are preserved. MRI lumbar spine: Disc height loss and alignment is as noted above. This preservation of vertebral body heights. There is Modic type I endplate edema at L5-S1. The conus terminates at the superior endplate of the L1 vertebral body level. No epidural or paraspinous fluid collection is appreciated. At T12-L1: There is a left central disc protrusion. There is mild spinal canal stenosis without significant neural foraminal narrowing. At L1-L2: There is a normal disc, central canal, and neural foramen. At L2-L3: There is a normal disc, central canal, and neural foramen. At L3-L4: There is a normal disc, central canal, and neural foramen. At L4-L5: There is a circumferential disc bulge with facet hypertrophy. There is mild spinal canal stenosis with mild left and moderate right neural foraminal narrowing. At L5-S1: There is a circumferential disc bulge with mild facet degenerative change. There is mild spinal canal narrowing. There is endplate osteophyte formation. There is moderate left and severe right neural foraminal narrowing with mass effect on the exiting L5 nerve roots, right greater than left. MR/MR lumbar spine wo con IMPRESSION: At L5-S1: There is a circumferential disc bulge with mild facet degenerative change. There is mild spinal canal narrowing. There is endplate osteophyte formation. There is moderate left and severe right neural foraminal narrowing with mass effect on the exiting L5 nerve roots, right greater than left. At L4-L5: There is a circumferential disc bulge with facet hypertrophy. There is mild spinal canal stenosis with mild left and moderate right neural foraminal narrowing. At T12-L1: There is a left central disc protrusion. There is mild spinal canal stenosis without significant neural foraminal narrowing. Impression dictated by: Maurice Pereyra M.D.10/28/2021 10:33 AM Dictation Location: [place] [address] Transcribed By: [facility] 10/28/21 1033 Dictated By: Maurice Pereyra II, MD 10/28/21 1025 Signed By: 10/28/21 1033 [facility] MR head/brain wo/w conon MR head/brain wo/w con [facility] [place] [address] MRI Report Signed Patient: Donell Dumont MR#: [id number] : 1975 Acct:[id number] Age/Sex: 46 / M ADM Date: 10/02/21 Loc: MR Room: Type: [facility] Attending Dr: Geo Ray DO Copies to: Mc Ray DO Ordering Provider: Mc Ray DO Date of Service: 10/02/21 MR/MR head/brain wo/w con: R27.0 MR head/brain wo/w con 10/02/2021 7:12 PM SIGN AND SYMPTOMS: Headaches, lightheadedness, cognitive impairment PROTOCOL: Multiplanar multisequence MR images of the brain were obtained with and without IV contrast CONTRAST: 20 mL of intravenous ProHance COMPARISON: None. FINDINGS: Extra axial spaces: Age appropriate. Hemorrhage: None. Ventricular system: Within normal limits. Basal cisterns: Within normal limits and not effaced. Cerebral parenchyma: Normal in signal. There is no abnormal postcontrast enhancement. Midline shift: None.. Cerebellum: Within normal limits. Brainstem: Within normal limits. OTHER: Calvarium: Normal marrow signal. Vascular system: Satisfactory flow voids within the anterior and posterior circulation. Visualized Paranasal sinuses: There is mucosal thickening in the maxillary sinuses. Visualized Orbits: Within normal limits. Visualized upper cervical spine: Within normal limits. Sella and skull base: Within normal limits. MR/MR head/brain wo/w con IMPRESSION: No acute intracranial pathology or abnormal postcontrast enhancement. Impression dictated by: Maurice Pereyra M.D.10/03/2021 9:15 AM Dictation Location: [place] [address] Transcribed By: [facility] 10/03/21914 Dictated By: Maurice Pereyra II, MD 10/03/21905 Signed By: 10/03/21914 [facility] Provider [place] 08-30-2021 Provider Orders [id number]#1 [email or web address] [facility] Coding Summaryon 08-28-2021 Coding Summary HTMLBase 64 TvuenkshBUt8oCo+PGhlY WQ+KE3FAKUzZ57lwCNkmU 2RJ0qKIT1XHANFJNLCJQ0 VHC6gwAO9IFvzY2AdzxEi GbtnzRMiBS21AXv7HWS9o EkeXOuguL4uwRRkR6j0Sb JnEE26jZ44OPaeCCLdFnF 3LjZpbjsgbWFy K1vdNrYiiZBoSbw+PHRhY mxlIHdpZHRoPScxMDAlJy DsjRafXV1cBt6ySGVsLFI vbGxhcHNlOiBj o1ocUOHnBIxxJG1xkHppS 5XdzSH2CYDkl8h7Hk68sP I+LQCuUVO6qZsoRYikq85 0QsEze0qhAXB7 eQLeTUooWUG8S08pt3V2B YYjBPHqPAU3zDH3qW5jsB wziaupW4HqiGPnOpF2CRG 7jJBxcC7joFkz kftjgF1iTyk+A23NFD1DK OGFWY9AXbc8P6NcJtekmV I+XP11GNNlMR74rINbeSA ts1dgrGy2UkEk NJMsPJZ2tHjtJZinw4MvJ WPgY58fcZIel7M3EMYddK rjbWYpWePcfIO0kE5tLKg ajwypj2efppgj Klngp7fkxf69oZ71D61bK GonHLAgTXF3LHFsUSRejP thrb3zlT5uTz7+PIjve7g lv4jkiQs1BiSf JJQfdjJbyOdgAMG5e2KkT c95Z9TgpPlul9QdEbu4fa 51sAEnn5L4sMP1YHgaNNP eeX3gIUmcHeN2 WSPoViKkyF47vRVgSBuvE i2scBwcyQptDW1tRXLgyw evFRCxuY0oNRPgwHKofUs sHG5tOWPuhoau n605JgDfDRR4NJEaxNElU 5CauS3uCjKgLMYeYHIsS2 HomFArKOskQ511UNkrRvV 9YXKubiWkK0Lk VCUgtBohVgX9v9K4Fp4Kx 1RyxxzzAOM8RCgbIYF5Qj DfFsZdWjG1C6MaJvk3LIX vtQxuBB5fT4Hb HHVrcgatelmhxNV9ACEhN XKoqZ57fULjDXfaJh0us2 N8x228TKOeMGDyaM59Bg0 udDogMTBwdCBU wR4crrzyd7ucenmvRlTqL CLbRXg0JBc0WZDulPuhCz RsVLS8NuT2WBS9nZJxvX9 kgPpabucszI5s Oyc+N23dgR6aUJL6LCG3j iaoXYVamyNvPK61JP04S5 RyPjwvdGFibGU+PGRpdiB uoAreRW0fYaOm p5yzf2XgSQlcB0AyCIKaH AmnEtl0CLFbHGZ7wCJ2rQ 7aSYHfGFmxk7B7oBD9P1W aiiXavz6br5mq WTGmIDqtV27ogGWpm0B4L RZghRB8IKKgnTbpIwHfyO 93Oyc+UOFqfZnig2VsZaf tw8vsm9cfhFm6 XoXaAEKdakMyzCneQNS1e 6CyGz89K20fUDgrTJOuCE CdTGMiWVSkoEdzdw8tsQ8 wIi8+PGNvbCB3 nLU7hM9xKCNeDaL8ANhxY 940OgIflREtSoqzs1eap5 tedAa0EsLdVUDrnsItwSl cEPW1m6LsAd58 M07qMQzbMIIwWRQnUIFvI MHflMiiik6ceS2kRz9+PC 6nr6vyxu28oG91xZO+PHR oYFI0kXnwQDgg IURanR0wXBibPlM0XPWtI aTrkA20cNHgCJpwHi6mwE gibVhlXY5oVWKmfuzfa85 6CpSiy3vmEWQi oFKhKOzvRQU7F69ks0W7O IVyUQVkVKC9xDZ9yA5gqO lnbjogbGVmdDsgdmVydGl lIIrsMLiqQ306 IHRvcDsnPlBhdGllbnQgT qIuHBy8S9ZeQaq5DQMsyQ qwHX4udWVwKCdzMf4nhNr usOxzUA2eQYGp oznyg116OkHxq6wtBHBce LQgDOedLXP0U54mk2C8ZF FjOKBfGBH3rAV1vH7znAt nbjogbGVmdDsg pxOzyCioALqePQkbA687X HRvcDsnPkJpcnRoIERhdG X8WG44BE58lQWhg2O9sEX 9B8JqGBXyrwcw svzrdSD9MAOfADQwzP27E m8ngZquBk0bLLTyFGF6AH VzpJQiU9IhiL8kSdOeXGP uKRUtV8JacGWy IMocG731VGovOjZ7CDKxx qFjN9RbDBUltOnbOzH9n8 Y6Lv1VZ9J5XN27BW74nSX rq2I9yOM0F2Kp GJPicbjrdyohtYK2GCOxM VDlwF18Su1jnLsxBy2gPG ImPPZ6DSNmjYLaS0IgmK2 yOiAjMDAwMDAw H7TidPMzKLvxX092HVatZ lU8EFJklzYnG0FkQWUhnM fgNfL0v9D3Hh7CTOj9II9 6LZ26xLCno7S2 rYF1D6VxNDYdndgdvohbc CW6ELGkWVOwbI60Sf3nsY zeFz4pGBSpUUV8WNKzzIO pO5DdpU2zQnWa QNMdZHQbT9KagZRdZBdlG 925GTgwQiM9ZUTxiuFlO6 SoLLQwiAxvOdD1o3H0Ng6 ZLRMvAJ81IHI6 uBI9UJ36KS56K6GcIojew GFibGU+PHRhYmxlIHdpZH RoPScxMDAlJyBzdHlsZT0 pXj7sDEByTLPg hUvhjAChFkLam8muZTQlQ MxkJC5wvWhhV6CivCS2PU Cpf2c9Pg44Q10iI1TmsHO +BUEslGO0lUT7 lB5aJzTgAjP6XDofR501L gAgfWUoDsgrr6xnc2tybX o1HhC4OEEecfVzuXnuTWJ 3t2WuOg14J25y IHdpZHRoPSIxNSUiIHZhb Sizct8xxZ3rEx9+PGNvbC A0dDF2iC1bYnIwHbF1XBp cH959MjNysAKt Xkxde3hxn8wrzXv8NsHlB NNakzXuqRtjSSB6e7OfKw 70U2YiyUzoy6CbYea9sp4 2kBXsf6P1uCG2 L3VtPMZyrrbsxWZapEebO S7eYEGyrmozVUXbeG2tTF WxQ7s7GcHcEkM7ZGfsG7S ljgW6JTKquTBf IGjhQIW3R97qp9J5LHScW KSrKAE1rNH0xL7naNkxkx ogbGVmdDsgdmVydGljYWw rCGfhN429KMLe gMdxGAYfyY8tNYBtxEKuq IatSV1gKXHrktrqJuiDSA SUIAKTLNsYZQPJG9LEVEv vdGQ+PHRkIHN0 gHyiSWrkETShpY6yMKHsT 8x7XgXjDgJ2GIhdN9MrGU XwhgqgDq14jT1hHkNsYnS 0VDwzK0AjbhH6 YSIryFFvJMivUUM9P14iz 9J9TLWtQXDaSVY1zRM9gO 1hbGlnbjogbGVmdDsgdmV ydGljYWwtYWxp Q726YMQmuDzqKtFaTnV0A lS1PnP1K3OcKpk0PRXpgX dyWV0yvEJoPQatFa4ctAz yuHhwBX1vQTCt vhdwJZNqvE6kGSFnrRCuy TzcMW3tIPCybeerk299Wr CkVHS4XEBbcWVwS4XwkU9 yOiAjMDAwMDAw M8LlpFLuAOsnL515SMqsM nE2FQUcwvDzQ4CfVXLekS wyLwH2h6E8Hl96LsPMHNS yczwvdGQ+PHRk IYT9yXvcDUepUWCgmQ7gM GArB4i2CxYpIcP0VKtyX9 QiKXRyotavLi05zQ4gKcF nTwO9DEnoE4Ve djH6IFCxhZUbOFfvRBQ9K 13hh9P2BQAiQEXeXPX9aW R6uO5rzSmtwoablSYsnAx gdmVydGljYWwt QEtyR423ABMymHsbIn3QL JN3S2LcEyp3EXZbaSbySQ 8fnTFpYEtyYp6qcHqchQt eRC3aJHEqkbeg IGWdgX1fFUBrrTHmyWlhX J8yJGImwngnv447SqCaAG F7SEEdkHGuK2YbbK6fJyQ vLUCjKVYqH7Om fIZaSStdB929AGctZsN3M WBtpmLsX2FbQQIujSkgUz J0w1V5Mk6ZLZQ3nsJmorb yM7G3ePL1bEXv dDwvdGQ+WS20ln98C2BrU xexOgt4KOCoMYT2lNE0eA 5nAQGjKCgfk9M7qPH3U9N ffrZdgv0vk6gg KCLvAKcxO27wxXGbz0B9U DZooHA2IYWkiOqbScKgyV 93Oyc+EWGhoVbic0IuVsj ds6fbr8uhcZr3 BlYtZJVpzwRkiDgcDNZ9c 2ZpAq87B88mKEvpYCHiVQ GsJYQzIHYfoPdevp0bpW5 wIi8+PGNvbCB3 pTI6cL4uFiGiFtL6CBnfJ 921YjKkbGClFwauy8izp8 fzeZf6IbVaKEJpmaQxyBs wUTK8t5JbVv23 J5BqsNanr9KfYao2ml18w DPgo6F3dWM4X4McAKHkiz kcaGEvfLlhRI7sBCVcfpg pGMDbtP3aNZVi T5w0HnUuSjC6CSeiA6Dcn gS1VFUzlAFhPUMrmAQFfT 6vsesqu4urripnBeGlAQW xFMg6RLb7FWZs xSnyIbUlGZJ6EcG4HHV0b EMemO8iiWorizyyvE3nCe c+VXd2a5kbuYLeDF4yhSB 1LM24GB66iYVa e9F9vKZ6G7DnVVZfqgeib ehedGJ2BFLsGYTynZ09Je 7clMuuGj6lZKBbWNA5CNS skVPjR6TloR5g KoXqVPGtELXbD5GhsOUaP VsqI469VLneEoW6CYRuyj CkJ7JjWYTyfQuoPdX1b5D 5Vx6ROG45ZD26 YB89kOMpj0I8wQQ5M6IuM VPyrrbykinciWK1JYNkHM XkwZ48At4mtQhrNw6tQVC cRWU7XJCrrOOe Q8NijM3sPmIpBLJoIKQzS 5BdhSGrWRtaR470WBczTj C9AFUbdfRcV5FkDLHpoMl mVcS8e9X1Ze5W Jl21TV77TR78rYWrl8I8f GD0G1WkTQCxplhehmolsL G7ZRZsWDOnoD91Oh0etKm wFk9pJVEuLCS5 DQVgnFLhS6NsuU8uShYqW PTjPORnP8BfjWDqWDkvD9 69CFqdBxP3OLFegsGuW7T sLWFsaWduOiB0 t7T1Fo8UNYvqhvv2K2JwR jwvdHI+CK38VIOcRT68fJ ZchBVbf1yomTi6RyThDDK zRJW6jUjbXLld b3J (more content not included)... [facility] Provider [place] 08-22-2021 Provider Orders [id number]#[email or web address] [facility] [place] 07-24-2021 Provider Orders [id number]#[email or web address] [facility] Coding Summaryon 07-19-2021 Coding Summary HTMLBase 64 QcijfahvKIa6eWd+PGhlY WQ+UG7VWHAzC76ydDYcpW 9DF1pVAR7HALWYYPYYPP9 GHW3rwOE4OOecC9MawbVx UcqmhPXjJF34ITx2RRH1l IvjZQpquV7fqCMgT8s4Vv WnXN01mF67LWzdNPFuPsI 3LjZpbjsgbWFy L5ktYdXexCWhYhb+PHRhY mxlIHdpZHRoPScxMDAlJy BlhTliFI6rZj3fIHDrPXO vbGxhcHNlOiBj j5vnIOCqRZixHP8tcWyjG 7KqpBV9DBLxg3b5Gy15dU I+PTUlLFQ8cXuqGQapu47 9XlBeu0ugBFT1 aQJiBNofENI4D57dt4P6R REeJYLrYOR2iSE5dO3edQ ygcgnzV0KtzJTaBsN9JYC 9oLCwjX2eoEuy ozqdzM3eRnh+D90HAB5XV LMYPT3FXgo9T4WsPqmrfU I+AV44SGNhLX30dISwaML aa1hraOg6GpJb UVQaFAQ4rBhcKHscb7EaI MExJ32ipDBjj6K1IZDncM nkbHMwLvJypMH7pO3sQSq qswesk7udwwet Possd6ikep26wL20W21rX SgqLTIkECE8WBWgVPLthV xvib4ujJ4dYx0+SBcuh8p oz5sntFy0SgSk HQEircBsbHfeZEJ0m1YmN m92M5VjvIizc8JlGat0nk 39vVLip4S2pQD5UAgyMVA buV4aIStzSnY8 CZElJdPjcG83bUOxMQafM q5xsKnipQwjGT5iQMZlsa ysNGIesZ5hTNEdrDTijOi jAI8fMDDrdsry c990TsNnEKO3CUWtbQXvW 5ZxmG9uKtBqURTnVKAgV4 KlxEIlHDlrT151GRguOdG 2PEDgfqNmX2Yq RRIewYmsUwW4q6J3Ts4Lo 7NyxfwpDZA8AChxRAT7Rx JbSsHsUgA8V3OxElh3FWT mfZfcTL3eK1Ma NQFgxomzydyyuRQ5SIWeY HUyvO55xEMeXBmtCr7zb3 H6i754JHWoWWCarQ18Ef6 udDogMTBwdCBU yO6yezywb2sypmasFcZjE ZFoHSw4FEl9AXDuiNzbOv BrKCY5EsA8DUL3dMQrjJ8 ibBwqtgvdnF4l Oyc+X26rfQ9yCTL8PNW1f owrPWGwzwZgIA81BI49U6 RyPjwvdGFibGU+PGRpdiB eaCjdDY0uYsZi c6dev5KuMGuuD1MtIENaT BqqFaf7BVUcFGU2bEC3zC 3aSLXyYLyse8Y2kQL1M4R lcoSjpl2hx7va MPXkVZpmI51usOVtf1C7X KYelUU7KJGrfHncPtQkhB 93Oyc+ZBXkuPmvt9FpCmo dx0chi0uzeXz9 XeOtUCHpchTsdPmkPQL6n 7BkLs93O87nEQofEVEvEP KhLAKvERRxuPlxle5suN6 wIi8+PGNvbCB3 tZL1tT5eGUGyUoQ1LIaxP 993MsDxiOPfMwzai7mdj8 weqGs6XdMnEXYuhgKzgGi pLHD7f6UiFv17 E41fSVwxFUPpEHMsAPRoX KQnrBrlaw5bqP2dSd4+PC 5vf3rxti59sB30gHO+PHR wUYU9cSiqJKos CRDuzU9wJWwsKlI7VJLiW oShsH78sCMcVUdrSw6vfY ujqLqeDY8yQYBrjfajn29 3LpSfq4rlYDEm lEVwBAbuHTQ0O81ja4H9S SWsTDAsCDY4mCB6rX6baV lnbjogbGVmdDsgdmVydGl jGPclITnqY822 IHRvcDsnPlBhdGllbnQgT hOyFEu3B6LtPgw1HKIdcS hsAC5aqINkOYtsMb4ihUf kjSapVD0hHOCr uhdtv160AmCmd5paCARup WWcBHywAMM9S08wp1T4SS EsYHRuYFJ6bGA0lM4afBz nbjogbGVmdDsg ddAoqEobVXkiJWwlA313H HRvcDsnPkJpcnRoIERhdG L8KL02JN36nJUdl4X8fKZ 3D0RjRQSoidro wqhiiRT6QKPgOUDmsR80H j4qvSgwRd4eXQTbLVF5EB RpbHGeO4SkfG1sKtKtUHS kXTXtN4IqiOMx FSzzB939GPoqXfT7HGRns lGnM6WyWMMabGrrJbX5x4 L0Gy6IT8S6QR18KK87gQV hw6T8zLS9J0Kr VLQggoqctbsygRR2DRWiZ VIgdG19Xb6asMtoAl0pVE OsCOD6NENpqWEfW2HhiE3 yOiAjMDAwMDAw V3UasZVaHBfoG448NVjbW iN7EGCnpgOaT3FpDJJxiI hhXwI9w6O5Kx6HLEw2ZW1 9ZP78tLPyw2J2 qBZ2V9KvEMWualgsskzmk WT0YSXnFWXumR29Eq1gwG vgPq5pXRUjPLW3CIGmfVI pB2QxgL7kQkIt QWDjYFNjJ2VkoOThXHjkA 972JEbtVtR6KYYixvRpJ3 CbYKBxiAcrCwE9i6D0Sc5 ODJEfBC13YCS1 qVF1AI37ST15G8VuRycgx GFibGU+PHRhYmxlIHdpZH RoPScxMDAlJyBzdHlsZT0 rIw5bEIIuCHXr vUfhbPJdDiYbh3hjIJWnZ BnvUE1aeGrgY7UcvNM7CU Ann6a8Bn00F60dU1NapOD +NCLrpQQ1dRR7 iB9jDeIiUkO6DFdtQ509O cSrhDRyLzptk9etv2chpW f6CmP6EORfhlJlhCdzUGD 2b7MmAd31R01m IHdpZHRoPSIxNSUiIHZhb Gstou9vfQ4eCn2+PGNvbC U4vKZ6pU3pVkOiZwI2FPb sW988ZbDpeEDf Wbkts5xgt2xfzEo1ZgUmI MGfbkEabCoiRQM9c3EtAv 03X3RlpVtov4StQvd1ln6 3yRSsh4E0zEU8 O5FkBOKartkjhAXivFeeW L8xNDVlgperGLYiiG2kUX VzA9b1BbDhWxJ4IDyhY7W zdfP8XRWxzNDg XQjvRNQ0C48rp8D8WMCcX QErQQF6lXS5zS4tlIxtpf ogbGVmdDsgdmVydGljYWw sKRbrE142MSBc cCcuLUVthX1cICQyjVDkb HlqNV9lEWWyqyypMvrECF ORWLVJKBoOKTCYJ5WIVKt vdGQ+PHRkIHN0 jCcdAHojWAHeqA8fWFKgD 9c8CcSgZbY3OXxeG6KuBF MrflgnGx01aR3vWiLaQhJ 9OMydR9DsklP4 LNSiwUTvBJcjBTD2N81me 4P9EELpVJGtNDU1fEO6nZ 1hbGlnbjogbGVmdDsgdmV ydGljYWwtYWxp I025KSRglFzcBjUoHvJ3J kG0XmU4Y1AdQrb3OCVoqD xzPD3xdIFqFAoaLd9wgGz koZgnZF1dBQXq qkltAOAkiG8vSMWleKYqm NxtNI7tLLWltphgk076Yf EwXTL0GNXymKXhI4FwtX8 yOiAjMDAwMDAw E2QacBNwRTumI969OElwF eW1TYRpkrKaM7PaCSGcyO kiVqG3x7C3Py75QzILNAZ yczwvdGQ+PHRk EFV4uTxvRZfiUKAixY3pO EAvM7j7PcMfLvO3RKtdP2 SlKAWunsjoOz12xY1sCsB pPkG7VXbtE7Ag wyN8WLMqiKYsXWcqRRU8B 56xm1M7WRXkUAXwLOD2pF H7vO9htQkuxamwpJOdpMb gdmVydGljYWwt PHwnZ720SXGpqEfuNz9OK CY8Q7TfXas4NISatKezSD 4ukIFtMTksOi6wmYpbjTt dGY8gLTOeumkg YSFigB9oVEJktWNizQbeH V0uFGYxhzuia086GbCiDE C9MARrxLYzO7PzvJ4cBwH yUFMzLUSzF3Vv cCLkUPkhQ251UJmxCuY9M DYyfmLsL2TeTESpdTnbBo D1h2K6Gk9NWVL6lsXmuxi vA8M2qZW4fQUr dDwvdGQ+KT69tm03Y7OnI etbYxh8AGBjWRY0rCH3yJ 9cDXOlKRpmr8F8vQY8U1S rtfJieg2fl9tv HQHbZFbdV31nnDKze3W1T ZQlpXH9TQCjzIvhRqCymI 93Oyc+RDUjiPjvp5HeLlb jj5wke4secPq2 ZvRfFNCumcQtcBysVPF2o 9PcWa04M59zTLklNBScYB IdDKJaQDOkxEeutv3rxC6 wIi8+PGNvbCB3 sIR4aB6gPyKqPxF4KHkkV 737NcThbJSxKrcuw5jpj1 jywJy8ZmPdVXIaguUyaRa tBPQ5r8LcAo56 A0IwuWrla8EkAmh8ll79w LPhy5T8mWL2G7OiSNAjmc tlwQZajTpnEF2uRMNedrn uFNLaxJ5yOEHm N1e9ZeFbQlH0MCwjS9Qio yX1TVHbjIPwCLWdsMCUoX 5ecmzpn9prnxvyOqPfEVZ pZNv9SUt0IRQe sXfbYfXvLZR2GtZ4YMU1v ATdhW5fpSmtnnighR9fGt c+CGp4t2gxnQPqVR2jjSP 5JO20SA84wEIh q3R0xOE0Q8QgMMFfsrqni nvkuEF5XEMySNWayM72Ub 1ptPlsDu3uQZNuQOG2TPH njXLmF0FadC9n CoFcJAVjWUKwV1RzdOEiR OauD022DFedCcR1NWPwmw NtB1QtPXZhfDieGpD8d4E 4Ne8JLS04KA41 UF89hDKkj4S4uVY6E6KgA XEhokfwmqugjEM6WZNbNK TjmZ61Wx6dkEkdDn6cXPW bQTS3RZSfiFLl C3LynD5lOwWqIZYiXSJsU 0PjvPIsFWtsL627IEtrCn J7CDZumcLvD2EsFMNssTx uSfU6c5N4Zt6W Et35FM56JW40hIUvz3C1i AK6P7JbKESrzjpiptgvhI H0BVWdVRHolR13Cj3nyJd lMj9iBYYgGVR4 GWRfsDNkI0PeoT8rRjPiJ KRlYCBlN7YjpTWeDSouJ3 71WUbpIlB4ACThvnRlA9Z sLWFsaWduOiB0 r5K6Hh8MLJinzlm6C7NkZ jwvdHI+RM49DFElIB88jV GcsBSxb0ligXb7UhBpCSP jIOX8wBjvWXvv b3J (more content not included)... [facility] 07-18-2021 L - -------- Specimen: [id number] Received: 07/18/21 Status: BRAULIO Stinson Num: [id number] Spec Type: Surgical Subm Dr: Alvino Rudolph MD Tissues: A Small Intestine - Biopsy/Polyp (SMALL BOWEL) B Stomach - Biopsy/Polyp (STOMACH BX) Procedures: HE Stain/4, Gross/Micro L4/2 -------- Patient Age/Sex Location Account Attending Physician -------- Donell Dumont 46/[facility] [id number] Alvino Rudolph MD -------- SPEC NUM: [id number] RECD: 07/18/21 STATUS: CORTNEYMinh BETTY NUM: [id number] JOCELYN: 07/18/[address] [facility] [address]: Alvino Rudolph MD ENTERED: 07/18/21 [facility] DR: SUSHILA TYPE: Surgical DEPT: S ORDERED: HE Stain/4, Gross/Micro L4/2 ORDERED: HE Stain/4, Gross/Micro L4/2 Pathological Diagnosis A. Small intestine, biopsy: - Small intestinal mucosa showing no specific pathologic changes - Preserved villous and crypt architecture - Negative for active inflammation B. Stomach, biopsy: - Mild chronic inactive gastritis - No morphologic evidence of H. pylori microorganisms Clinical Information Diarrhea Gross Description A. Received in formalin labeled with the patient's name, number and small bowel biopsy rule out enteropathy is a 0.8 x 0.8 x 0.3 cm aggregate of shine-pink tissue. Entirely submitted in one cassette labeled A1. (/TIFFANIE) B. Received in formalin labeled with the patient's name, number and stomach biopsy rule out H. pylori are 2 shine tissue fragments, 0.3 cm and 0.5 cm. Entirely submitted in one cassette labeled B1. (MONIQUE/TIFFANIE) -------- Specimen: [id number] Received: 07/18/21 Status: BRAULIO Stinson Num: [id number] Spec Type: Surgical Subm Dr: Alvino Rudolph MD Tissues: A Small Intestine - Biopsy/Polyp (SMALL BOWEL) B Stomach - Biopsy/Polyp (STOMACH BX) Procedures: HE Stain/4, Gross/Micro L4/2 -------- Patient: Tim,Donell [id number] (Continued) -------- Specimen: [id number] Received: 07/18/21 (Continued) Signed (signature on file) Don Rich MD 07/20/21 1309 -------- Specimen: [id number] Received: 07/18/21 Status: BRAULIO Stinson Num: [id number] Spec Type: Surgical Subm Dr: Alvino Rudolph MD Tissues: A Small Intestine - Biopsy/Polyp (SMALL BOWEL) B Stomach - Biopsy/Polyp (STOMACH BX) Procedures: HE Stain/4, Gross/Micro L4/2 -------- Patient: Donell Dumont [id number] (Continued) -------- Specimen: [id number] Received: 07/18/21 (Continued) Microscopic Description A. Two glass slides with H E stained material have been examined. The microscopic findings support the above pathologic diagnosis. B. Two glass slides with H E stained material have been examined. The microscopic findings support the above pathologic diagnosis. [id number] -------- -------- Specimen: [id number] Received: 07/18/21 Status: BRAULIO Stinson Num: [id number] Spec Type: Surgical Subm Dr: Alvino Rudolph MD Tissues: A Small Intestine - Biopsy/Polyp (SMALL BOWEL) B Stomach - Biopsy/Polyp (STOMACH BX) Procedures: HE Stain/4, Gross/Micro L4/2 -------- Patient: Donell Dumont [id number] (Continued) -------- Signed (signature on file) Don Rich MD 07/20/21 1309 Normal [facility] SARS-CoV-2 (COVID-19) RNA CHON+probe Ql (Unsp spec) Negative Normal Negative [facility] Comment on above: Order Comment: Healt hcare Worker?: N Result Comment: Testing for SARS-CoV-2 by RT-PCR This test was developed and its performance characteristics determined by [employer] and validated at the [facility]. This test has not been FDA cleared or approved. This test has been authorized by FDA under an Emergency Use Authorization (EUA). This test has been validated in accordance with the FDA's Guidance Document (Policy for Diagnostics Testing in Laboratories Certified to Perform High Complexity Testing under CLIA prior to Emergency Use Authorization for Coronavirus Disease-2019 during the Public Health Emergency) issued on June 11, 2019. This test is only authorized for the duration of time the declaration that circumstances exist justifying the authorization of the emergency use of in vitro diagnostic tests for detection of SARS-CoV-2 virus and/or diagnosis of COVID-19 infection under section 564(b)(1) of the Act, 21 U.S.C. 360bbb-3(b)(1), unless the authorization is terminated or revoked sooner. PERFORMED BY: [place] [address] PATHOLOGIST IMPORT EXPORT CLERK DON RICH M.D. Performed By: #### C OVID 19 [facility] #### [place] [id number] [facility] Provider Orderson 07-13-2021 Provider Orders [id number] [facility] Vital Signs Date Time Vital Sign Value Performing Clinician Facility 02-27-2023 15:30-0500 Body height 185.42 cm Jack Recorrido Other [facility] Other 02-27-2023 15:30-0500 Body mass index (BMI) [Ratio] 28.6 kg/m2 Jack Recorrido Other [facility] Other 02-27-2023 15:30-0500 Body weight 98.34 kg Jack Recorrido Other [facility] Other 02-27-2023 15:30-0500 Diastolic blood pressure 83 mm[Hg] Jack Recorrido Other [facility] Other 02-27-2023 15:30-0500 Respiratory rate 12 /min Jack Recorrido Other [facility] Other 02-27-2023 15:30-0500 Systolic blood pressure 124 mm[Hg] Jack Ball Other [facility] Other 02-22-2023 10:45-0500 Body height 185.42 cm Jack Ball Other [facility] Other 02-22-2023 10:45-0500 Body mass index (BMI) [Ratio] 28.6 kg/m2 Jack Ball Other [facility] Other 02-22-2023 10:45-0500 Body weight 98.34 kg Jack Ball Other [facility] Other 02-22-2023 10:45-0500 Diastolic blood pressure 88 mm[Hg] Jack Ball Other [facility] Other 02-22-2023 10:45-0500 Respiratory rate 12 /min Jack Ball Other [facility] Other 02-22-2023 10:45-0500 Systolic blood pressure 132 mm[Hg] Jack Ball Other [facility] Other 11-28-2022 13:30-0400 Body height 185.42 cm Jack Ball Other [facility] Other 11-28-2022 13:30-0400 Body mass index (BMI) [Ratio] 27.94 kg/m2 Jack Ball Other [facility] Other 11-28-2022 13:30-0400 Body weight 96.07 kg Jack Ball Other [facility] Other 11-28-2022 13:30-0400 Diastolic blood pressure 87 mm[Hg] Jack Ball Other [facility] Other 11-28-2022 13:30-0400 Respiratory rate 12 /min Jack Ball Other [facility] Other 11-28-2022 13:30-0400 Systolic blood pressure 133 mm[Hg] Jack Ball Other [facility] Other 10-23-2022 08:30-0400 Body height 185.42 cm Jack Ball Other [facility] Other 10-23-2022 08:30-0400 Body mass index (BMI) [Ratio] 27.39 kg/m2 Jack Ball Other [facility] Other 10-23-2022 08:30-0400 Body weight 94.17 kg Jack Ball Other [facility] Other 10-23-2022 08:30-0400 Diastolic blood pressure 84 mm[Hg] Jack Ball Other [facility] Other 10-23-2022 08:30-0400 Respiratory rate 12 /min Jack Ball Other [facility] Other 10-23-2022 08:30-0400 Systolic blood pressure 116 mm[Hg] Jack Ball Other [facility] Other 09-14-2022 09:30-0400 Body height 185.42 cm Jack Ball Other [facility] Other 09-14-2022 09:30-0400 Body mass index (BMI) [Ratio] 28.55 kg/m2 Jack Ball Other [facility] Other 09-14-2022 09:30-0400 Body weight 98.16 kg Jack Ball Other [facility] Other 09-14-2022 09:30-0400 Diastolic blood pressure 95 mm[Hg] Jack Ball Other [facility] Other 09-14-2022 09:30-0400 Respiratory rate 12 /min Jack Ball Other [facility] Other 09-14-2022 09:30-0400 Systolic blood pressure 136 mm[Hg] Jack Ball Other [facility] Other 08-15-2022 08:45-0400 Body height 185.42 cm Jack Ball Other [facility] Other 08-15-2022 08:45-0400 Body mass index (BMI) [Ratio] 27.39 kg/m2 Jack Ball Other [facility] Other 08-15-2022 08:45-0400 Body weight 94.17 kg Jack Ball Other [facility] Other 08-15-2022 08:45-0400 Diastolic blood pressure 85 mm[Hg] Jack Ball Other [facility] Other 08-15-2022 08:45-0400 Respiratory rate 12 /min Jack Ball Other [facility] Other 08-15-2022 08:45-0400 Systolic blood pressure 120 mm[Hg] Jack Ball Other [facility] Other 08-07-2022 14:30-0400 Body height 185.42 cm Jack Ball Other [facility] Other 08-07-2022 14:30-0400 Body mass index (BMI) [Ratio] 27.91 kg/m2 Jack Ball Other [facility] Other 08-07-2022 14:30-0400 Body weight 95.98 kg Jack Ball Other [facility] Other 08-07-2022 14:30-0400 Diastolic blood pressure 88 mm[Hg] Jack Ball Other [facility] Other 08-07-2022 14:30-0400 Respiratory rate 12 /min Jack Ball Other [facility] Other 08-07-2022 14:30-0400 Systolic blood pressure 133 mm[Hg] Jack Ball Other [facility] Other 06-27-2022 08:23-0400 Diastolic blood pressure 85 mm[Hg] Raad Cline [facility] 06-27-2022 08:23-0400 Systolic blood pressure 129 mm[Hg] Raad Cline [facility] 01-01-2022 10:38-0400 Body weight 96.16 kg Shyanne Guy HISTORICAL MANUSCRIPTS CURATOR.COOPERER Work Phone: [facility] 01-01-2022 10:38-0400 Diastolic blood pressure 98 mm[Hg] Shyanne Guy HISTORICAL MANUSCRIPTS CURATOR.COOPERER Work Phone: [facility] 01-01-2022 10:38-0400 Heart rate 71 /min Shyanne Guy HISTORICAL MANUSCRIPTS CURATOR.COOPERER Work Phone: [facility] 01-01-2022 10:38-0400 Systolic blood pressure 147 mm[Hg] Shyanne Guy HISTORICAL MANUSCRIPTS CURATOR.COOPERER Work Phone: [facility] 12-29-2021 09:20-0400 Body height 185.42 cm Sandie Luther Other [facility] Other 12-29-2021 09:20-0400 Body mass index (BMI) [Ratio] 27.7 kg/m2 Sandiesofia Luther Other [facility] Other 12-29-2021 09:20-0400 Body weight 95.26 kg Sandie Luther Other [facility] Other 10-17-2021 10:00-0400 Body height 185.42 cm Sandiesofia Luther Other [facility] Other 10-17-2021 10:00-0400 Body mass index (BMI) [Ratio] 27.57 kg/m2 Sandie Luther Other [facility] Other 10-17-2021 10:00-0400 Body weight 94.8 kg Sandiesofia Luther Other [facility] Other 09-04-2021 15:15-0400 Body height 185.42 cm Alvino Rudolph Other [facility] Other 09-04-2021 15:15-0400 Body mass index (BMI) [Ratio] 27.57 kg/m2 Alvino Rudolph Other [facility] Other 09-04-2021 15:15-0400 Body weight 94.8 kg Alvino Rudolph Other [facility] Other 2021 16:30-0500 Body height 185.42 cm Alvino Rudolph Other [facility] Other 2021 16:30-0500 Body mass index (BMI) [Ratio] 29.55 kg/m2 Alvino Loredoy Other [facility] Other 2021 16:30-0500 Body weight 101.61 kg Alvino Ditty Other [facility] Other 2021 16:30-0500 Diastolic blood pressure 86 mm[Hg] Alvino Ditty Other [facility] Other 2021 16:30-0500 Systolic blood pressure 137 mm[Hg] Alvino Ditty Other [facility] Other 02-28-2021 10:30-0500 Body height 185.42 cm Alvino Ditty Other [facility] Other 02-28-2021 10:30-0500 Body mass index (BMI) [Ratio] 30.21 kg/m2 Alvino Ditty Other [facility] Other 02-28-2021 10:30-0500 Body weight 103.87 kg Alvino Ditty Other [facility] Other 01-19-2021 14:45-0500 Body height 185.42 cm Alvino Ditty Other [facility] Other 01-19-2021 14:45-0500 Body mass index (BMI) [Ratio] 29.95 kg/m2 Alvino Ditty Other [facility] Other 01-19-2021 14:45-0500 Body weight 102.97 kg Alvino Ditty Other [facility] Other 01-19-2021 14:45-0500 Diastolic blood pressure 89 mm[Hg] Alvino Ditty Other [facility] Other 01-19-2021 14:45-0500 Systolic blood pressure 128 mm[Hg] Alvino Rudolph Other [facility] Other 1975 23:00-0500 >na< Bridget Laird Dept[facility] of Dermato logy Encounters Encounter Date Encounter Type Care Provider Facility Start: 02-28-2023 ambulatory Jack Griffin d Ball DO Facility:[facility] Start: 02-27-2023 End: 02-27-2023 ambulatory Jack Ball Other [facility] Other Start: 02-27-2023 Office outpatient vi sit 25 minutes Jack Ball [facility] Start: 02-25-2023 End: 02-25-2023 ambulatory Jack Ball Other [facility] Other Start: 02-25-2023 Telephone encounter Jack Ball [facility] Start: 02-22-2023 End: 02-22-2023 ambulatory Jack Ball Other [facility] Other Start: 02-22-2023 Office outpatient vi sit 15 minutes Jack Ball [facility] Start: 02-11-2023 End: 02-11-2023 ambulatory Jack Ball Other [facility] Other Start: 02-11-2023 Telephone encounter Jack Ball [facility] Start: 02-04-2023 End: 02-04-2023 ambulatory Jack Ball Other [facility] Other Start: 02-04-2023 Office outpatient vi sit 15 minutes Jack Ball [facility] Start: 01-03-2023 End: 01-04-2023 ambulatory Jack Edward Ball DO Facility:[facility] Start: 12-24-2022 End: 12-25-2022 ambulatory Jack Edward Ball DO Facility:[facility] Start: 12-09-2022 End: 12-09-2022 ambulatory Jack Ortega Other [employer] Other Start: 12-09-2022 Telephone encounter Jack [facility] Start: 12-07-2022 End: 12-09-2022 Evaluation and management of inpatient Shivam Clark MD Facility:[facility] Start: 11-30-2022 End: 12-01-2022 ambulatory Jack Ortega DO Facility:[facility] Start: 11-29-2022 End: 11-30-2022 ambulatory Jack Ortega DO Facility:[facility] Start: 11-28-2022 End: 11-28-2022 ambulatory Jack Ortega Other [employer] Other Start: 11-28-2022 Encounter for genera l adult medical examination without abnormal findings Jack Ortega [facility] Start: 11-28-2022 Periodic preventive med est patient 40-64yrs Jack Ortega [facility] Start: 11-23-2022 End: 11-24-2022 ambulatory Jack Ortega DO Facility:[facility] Start: 11-16-2022 End: 11-16-2022 ambulatory Jack Ortega Other [employer] Other Start: 11-16-2022 Telephone encounter Jack AD[facility] Start: 11-01-2022 End: 11-02-2022 ambulatory Jack Ortega DO Facility:[facility] Start: 10-25-2022 ambulatory Jack Ortega DO Facility:[facility] Start: 10-23-2022 End: 10-23-2022 ambulatory Jack Ortega Other [employer] Other Start: 10-23-2022 Encounter for other preprocedural examination Jack Ortega [facility] Start: 10-23-2022 Office outpatient vi sit 25 minutes Jack Ortega [facility] Start: 09-24-2022 Orders Only Shyanne hughes APRN.COOPERER Work Phone: Gastroenterology Start: 09-17-2022 ambulatory Jack Ortega DO Facility:[facility] Start: 09-14-2022 End: 09-14-2022 ambulatory Jack Ortega Other [employer] Other Start: 09-14-2022 Office outpatient vi sit 15 minutes Jack Ortega [facility] Start: 09-04-2022 ambulatory PCP UNKNOWN Facility:[id number] Start: 09-04-2022 Office outpatient vi sit 15 minutes Raad Cline [facility] Start: 09-04-2022 Postop follow up vis it related to original px Raad Cline [facility] Start: 08-27-2022 ambulatory Jack Ortega DO Facility:[facility] Start: 08-21-2022 ambulatory Jack Ortega DO Facility:[facility] Start: 08-15-2022 End: 08-15-2022 ambulatory Jack Ortega Other [employer] Other Start: 08-15-2022 Office outpatient vi sit 15 minutes Jack [facility] Start: 08-10-2022 End: 08-11-2022 ambulatory Jack Ortega DO Facility:[facility] Start: 08-09-[address] JACK ORTEGA Facilsu ty:H1 Start: 08-08-2022 End: 08-08-2022 ambulatory Jack Ortega Other [employer] Other Start: 08-08-2022 Telephone encounter Jack [facility] Start: 08-07-2022 End: 08-08-[address] JACK ORTEGA [facility] [employer] Other Start: 08-07-2022 Encounter for other preprocedural examination Jack Ortega [facility] Start: 08-07-2022 Office outpatient vi sit 25 minutes Jack Ortega [facility] Start: 07-30-2022 End: 07-31-2022 ambulatory Feliciano Tillman Facility:[facility] Start: 07-20-2022 ambulatory Pt States None PCP Faci lity:[id number] Start: 07-20-2022 Office outpatient vi sit 15 minutes Raad Cline [facility] Start: 07-20-2022 Postop follow up vis it related to original px Raad Cline [facility] Start: 07-18-2022 End: 07-19-2022 ambulatory Jack Ortega DO Facility:[facility] Start: 07-16-2022 Kirsty Glez [facility] of D ermatology Start: 07-13-[address] Kirsty Glez Facility:[id number] Start: 07-13-2022 Postop follow up vis it related to original px Kirsty Glez [facility] D[facility]atology Start: 07-11-2022 End: 07-11-2022 ambulatory NON STAFF Facility:[facility] Start: 07-11-2022 End: 07-11-2022 ambulatory DO Jack Ortega Work Phone: [facility] Work Phone: Start: 07-11-2022 End: 07-11-2022 Patient encounter procedure DO Jack Ortega Work Phone: [facility] [place] Work Phone: Start: 07-10-2022 End: 07-11-2022 ambulatory Sebastian Rios PA-C Facility:[facility] Start: 07-10-2022 Bridget Laird [facility] of D ermatology Start: 06-28-2022 Raad Cline [facility] Start: 06-27-[address] Devin Jorge Facility:[id number] Start: 06-27-2022 ambulatory DO DEMETRIUS MCKEONOCS Facili ty:[id number] Start: 06-19-2022 Orders Only Shyanne hughes HISTORICAL MANUSCRIPTS CURATOR.COOPERER Work Phone: Gastroenterology Start: 06-11-2022 Bridget Laird [facility] Start: 05-28-[address] Devin Jorge Facility:[id number] Start: 05-25-2022 End: 05-25-2022 ambulatory Jack Ortega Facility:[facility] Start: 05-25-2022 End: 05-25-2022 ambulatory DO Jack Ortega Work Phone: [facility] Work Phone: Start: 05-25-2022 End: 05-25-2022 Patient encounter procedure DO Jack Ortega Work Phone: [facility] [place] Work Phone: Start: 05-17-2022 Telephone encounter Shyanne Moscoso antis HISTORICAL MANUSCRIPTS CURATOR.COOPERER Work Phone: Gastroenterology Comment on above: Results Start: 04-30-2022 Telephone encounter Vashti Ly DO Work Phone: Gastroenterology Comment on above: Patient Question (Fa x MRE orders to [facility]) Start: 03-26-2022 Refill Shyanne Navarro s HISTORICAL MANUSCRIPTS CURATOR.COOPERER Work Phone: Gastroenterology Comment on above: Refill Request Start: 03-21-2022 End: 03-21-2022 ambulatory Sandie Luther Other [employer] Other Start: 03-21-2022 Telephone encounter Sandie Luther [facility] Start: 03-15-2022 Telephone encounter Shyanne nieto HISTORICAL MANUSCRIPTS CURATOR.COOPERER Work Phone: Gastroenterology Comment on above: Results Start: 03-13-2022 End: 03-13-2022 ambulatory JACK ORTEGA Facility:[facility] Start: 03-07-2022 End: 03-08-2022 ambulatory LEE ANN LOPEZ Facility: Start: 03-06-2022 Telephone encounter Vashti Ly DO Work Phone: Gastroenterology Comment on above: Appointment (E/C) Start: 02-20-2022 End: 02-20-2022 ambulatory JACK ORTEGA Facility:[facility] Start: 02-19-2022 End: 02-19-2022 ambulatory SHYANNE RODRÍGUEZ Facility:[facility] Start: 02-14-2022 End: 02-15-2022 ambulatory LEE ANN LOPEZ Facility: Start: 01-25-2022 Refill Shyanne Navarro s HISTORICAL MANUSCRIPTS CURATOR.COOPERER Work Phone: Gastroenterology Comment on above: Refill Request Start: 01-01-2022 End: 01-01-2022 ambulatory SHYANNE RODRÍGUEZ Facility:[facility] Start: 01-01-2022 End: 01-01-2022 Patient encounter procedure Shyanne Rodríguez HISTORICAL MANUSCRIPTS CURATOR.COOPERER Work Phone: Gastroenterology Comment on above: Diarrhea, unspecifie d type (Primary Dx); Esophageal dysphagia; Irritable bowel syndrome with diarrhea Start: 12-29-2021 End: 12-29-2021 ambulatory Sandie Luther Other [employer] Other Start: 12-29-2021 Office outpatient vi sit 15 minutes Sandie Luther [facility] Start: 10-27-2021 End: 10-27-2021 ambulatory Sandie Luther Facility:[facility] Start: 10-17-2021 End: 10-17-2021 ambulatory Sandie Luther Other [employer] Other Start: 10-17-2021 Office outpatient vi sit 15 minutes Sandie Luther [facility] Start: 10-12-2021 End: 10-12-2021 ambulatory Alvino Rudolph Other [employer] Other Start: 10-12-2021 Telephone encounter Alvino ADAMS [facility] Start: 10-02-2021 End: 10-02-2021 ambulatory Geo Ray Facility:[facility] Start: 10-02-2021 End: 10-02-2021 Patient encounter procedure DO Jack Ortega Work Phone: [facility] [place] Start: 09-04-2021 End: 09-04-2021 ambulatory Alvino Loredodamian Other [employer] Other Start: 09-04-2021 Patient encounter procedure Alvino Corinjay [facility] Start: 08-25-2021 End: 01-29-2022 ambulatory SANDIE LUTHER Facility:[facility] Start: 08-13-2021 End: 08-13-2021 ambulatory Alvino Loredoy Other [employer] Other Start: 08-13-2021 Telephone encounter Alvino [facility]AMS [facility] Start: 07-19-2021 End: 02-28-2022 ambulatory SANDIE LUTHER Facility:[facility] Start: 07-18-2021 End: 07-19-2021 ambulatory Alvino Rudolph Facility:[facility] Start: 07-14-2021 End: 07-14-2021 ambulatory Alvino Coombstty Facility:[facility] Start: 2021 End: 2021 ambulatory Alvino Corinphilippy Other [employer] Other Start: 2021 Patient encounter procedure Alvino Corinphilippdamian [facility] Start: 02-28-2021 End: 02-28-2021 ambulatory Alvino Rudolph Other [employer] Other Start: 02-28-2021 Patient encounter procedure Alvino Corinphilippy [facility] Start: 01-19-2021 End: 01-19-2021 ambulatory Alvino Corinphilippy Other [employer] Other Start: 01-19-2021 Patient encounter procedure Alvino Rudolph [facility] Procedures Date Procedure Procedure Detail Performing Clinician Start: 07-11-2022 X-ray of lumbar spin e, four views DO Jack Ortega Work Phone: Start: 06-27-2022 Mohs micrographic h/n/h/f/g 1st stage 5 blocks Raad Cline Start: 06-11-2022 Bridget delgadillo Start: 05-25-2022 Plain X-ray of left hip DO Jack Ortega Work Phone: Start: 03-13-2022 Colonoscopy 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 Obregon 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 DIFFICILE PCR Lab Routine Diarrhea, unspecified type Expected: 01/01/2022 (Approximate), Expires: 03/03/2022 [facility] Work Phone: Comment on above: Expected: 01/01/2022 (Approximate), Expires: 03/03/2022 Start: 01-01-2022 End: 03-03-2022 ENTERIC BACTERIAL PANEL BY PCR ENTERIC BACTERIAL PANEL BY PCR Lab Routine Diarrhea, unspecified type Expected: 01/01/2022 (Approximate), Expires: 03/03/2022 [facility] Work Phone: Comment on above: Expected: 01/01/2022 (Approximate), Expires: 03/03/2022 Start: 01-01-2022 End: 03-03-2022 Giardia lamblia+Cryptosporidium sp Ag [Presence] in Stool by Immunoassay CRYPTOSPORIDIUM AND GIARDIA ANTIGENS BY EIA Microbiology Routine Diarrhea, unspecified type Expected: 01/01/2022, Expires: 03/03/2022 [facility] Work Phone: Comment on above: Expected: 01/01/2022 , Expires: 03/03/2022 Start: 01-01-2022 End: 03-03-2022 PANC ELASTASE, FECAL PANC ELASTASE, FECAL Lab Routine Diarrhea, unspecified type Expected: 01/01/2022, Expires: 03/03/2022 [facility] Work Phone: Comment on above: Expected: 01/01/2022 , Expires: 03/03/2022 Start: 11-09-2021 Influenza vaccination INFLUENZA (#1) [facility] Start: 10-27-2021 XR pre/post mri xray XR pre/post mri xray [facility] Start: 10-27-2021 End: 10-27-2021 Patient encounter procedure Departed Clinical [facility] [place] Start: 10-27-2021 MR lumbar spine wo con MR lumbar spi ne wo con [facility] Start: 04-08-2021 COVID-19 VACCINE (4 - Booster for Pfizer series) COVID-19 VACCINE (4 - Booster for Pfizer series) [facility] Start: 04-08-2021 COVID-19 VACCINE (4 - Pfizer series) COVID-19 VACCINE (4 - Pfizer series) [facility] Start: 03-11-2021 DEPRESSION ASSESSMENT DEPRESSION ASS ESSMENT [facility] Start: 05-17-2020 COLOGUARD (FIT-DNA) COLOGUARD (FIT-D NA) [facility] Start: 05-17-2020 Colonoscopy COLONOSCOPY [facility] Start: 05-17-2020 COLORECTAL CANCER SCREENING COLORECTAL CANCER SCREENING [facility] Start: 05-17-[address] COLONOGRAPHY [facility] Start: 05-17-2020 DIABETES SCREEN DIABETES SCREEN [facility] Start: 05-17-2020 FECAL OCCULT BLOOD FECAL OCCULT BLOO D [facility] Start: 05-17-2020 SIGMOIDOSCOPY SIGMOIDOSCOPY [facility] Start: 05-17-2010 LIPID SCREEN LIPID SCREEN [facility] Start: 05-17-1994 Urine microalbumin profile DTAP,TDAP,TD (1 - Tdap) [facility] Start: 05-17-1993 HEPATITIS C SCREENING HEPATITIS C SC REENING [facility] Start: 05-17-1993 HIV SCREENING HIV SCREENING [facility] Start: 1975 COVID-19 VACCINE (#1) COVID-19 VACCI NE (#1) [facility] Start: 1975 HEPATITIS B (1 of 3 - 3-dose series) HEPATITIS B (1 of 3 - 3-dose series) [facility] End: 01-01-2023 COLONOSCOPY DIAGNOSTIC COLONOSCOPY DIAGNOSTIC Endoscopy Routine Diarrhea, unspecified type 1 Occurrences starting 01/01/2022 until 01/01/2023 [facility] Work Phone: Comment on above: 1 Occurrences starti ng 01/01/2022 until 01/01/2023 End: 01-01-2023 EGD DIAGNOSTIC EGD DIAGNOSTIC Endoscopy Routine Esophageal dysphagia 1 Occurrences starting 01/01/2022 until 01/01/2023 [facility] Work Phone: Comment on above: 1 Occurrences starti ng 01/01/2022 until 01/01/2023 [facility] Immunizations Immunization Date Immunization Notes Care Provider Fa dionisio 11-28-2022 influenza, injectabl e, quadrivalent, preservative free Jack Jordan Other [facility] [employer] Other 02-11-2021 COVID-19 mRNA, Comirnaty ([employer]) DO Jack Recorrido Work Phone: [facility] 01-23-2021 influenza virus vaccine, split virus (incl. purified surface antigen) Jakc Ortega Other [facility] Other 04-14-2020 COVID-19 mRNA, Comirnaty ([employer]) DO Jack Recorrido Work Phone: [facility] 04-13-2020 COVID-19 Vaccine Pfi zer - Documentation Purposes Only Jack Jordan Other [employer] Other 03-24-2020 COVID-19 mRNA, Comirnaty (Pf[employer]) DO [employer] Work Phone: [facility] 03-24-2020 COVID-19 Vaccine Moderna - Documentation Purposes Only Jack Jordan Other [employer] Other 1975 pneumococcal conjuga te vaccine, 7 valent Bridget Laird [facility] of Dermatology Payers Date Payer Category Payer Self-pay [id number] 2021 Unknown [id number] 1975 Unknown [id number] 2.16.84 0.1.671705.3.579.2.718 1975 Unknown [id number] 2.16.8 40.1.924696.3.579.2.718 1975 Unknown [id number] 2.16.84 0.1.877836.3.579.2.593 1975 Unknown [id number] 2.16.84 0.1.046297.3.579.2.593 1975 Unknown [id number] 2.16.84 0.1.147503.3.579.2.593 1975 Unknown [id number] 2.16.84 0.1.598769.3.579.2.593 1975 Unknown [id number] 2.16. 840.1.321893.3.579.2.356 1975 Unknown [id number] .16. 840.1.084267.3.579.2.356 1975 Unknown [id number] 2.16. 840.1.893482.3.579.2.356 1975 Unknown [id number] 2.16. 840.1.653818.3.579.2.356 1975 Unknown [id number] 2.16. 840.1.787155.3.579.2.356 1975 Unknown [id number] 2.16. 840.1.670926.3.579.2.356 1975 Unknown [id number] 2.16. 840.1.411524.3.579.2.196 1975 Unknown [id number] 2.16. 840.1.638754.3.579.2.196 1975 Unknown [id number] 2.16. 840.1.091861.3.579.2.196 1975 Unknown [id number] 2.16. 840.1.799793.3.579.2.196 1975 Unknown [id number] 2.16. 840.1.603997.3.579.2.196 1975 Unknown [id number] 2.16. 840.1.126555.3.579.2.196 1975 Unknown [id number] 2.16. 840.1.650888.3.579.2.196 1975 Unknown [id number] 2.16. 840.1.249892.3.579.2.196 1975 Unknown [id number] 2.16. 840.1.280208.3.579.2.196 1975 Unknown [id number] 2.16. 840.1.124311.3.579.2.196 1975 Unknown [id number] 2.16. 840.1.231529.3.579.2.196 1975 Unknown [id number] 2.16. 840.1.312162.3.579.2.196 1975 Unknown [id number] 2.16. 840.1.587226.3.579.2.196 1975 Unknown [id number] 2.16. 840.1.617003.3.579.2.196 1975 Unknown [id number] 2.16. 840.1.621889.3.579.2.196 1975 Unknown [id number] 2.16. 840.1.805355.3.579.2.196 1975 Unknown [id number] 2.16. 840.1.289850.3.579.2.196 1975 Unknown [id number] 2.16. 840.1.509838.3.579.2.196 1959 [facility] [id number] 2.16.840.1.161188.19 Unknown [id number] 2.1 6.840.1.557393.19 Unknown [facility] [id number] Unknown [id number] 2.16.8 40.1.932216.3.579.2.531 Unknown [id number] 2.16.8 40.1.993648.3.579.2.531 Unknown [id number] 2.16.8 40.1.446691.3.579.2.531 Unknown [id number] 2.16.8 40.1.421763.3.579.2.531 Unknown [id number] 2.16.8 40.1.158178.3.579.2.531 Unknown [id number] 2.16.8 40.1.632866.3.579.2.531 Social History Date Type Detail Facility Start: 03-13-2022 End: 03-26-2022 Sex Assigned At [employer] Other Start: 07-18-2021 End: 01-01-2022 Tobacco smoking status LAIS Never smoked tobacco (finding) [facility] Start: 1975 End: 1975 Sex Assigned At Male [facility] Start: 01-01-2022 Tobacco use and exposure Smokeless tobacco non-user [facility] Start: 01-01-2022 End: 03-13-2022 Alcohol intake Ex-drinker (finding) [facility] Start: 1975 Sex Assigned At Not on file [facility] Start: 06-11-2022 Dept. of Dermatology Start: 03-13-2022 End: 03-26-2022 History of Social function [facility] National Score (1-10 0), lower number is lower risk 74 [facility] Start: 03-12-2022 Gender identity Identifies as male gender (finding) [facility] Start: 03-12-2022 Sexual orientation Heterosexual (finding) [facility] Medical Equipment Procedure Code Equipment Code Equipment Origin al Text Equipment Identifier Dates Start: 08-08-2022 Goals Date Patient Goal Desired Activity /State Clinical Notes 01-19-2021 to 02-27-2023 Note Date & Type Note Facility 02-27-2023 Evaluation note Encounter Date Diagnosis Assessment Notes Feb, Type 2 diabetes mellitus with hyperglycemia (ICD-10 - E11.65) This patient is following a comprehensive diabetic treatment plan. They are checking their feet daily for calluses and nonhealing ulcers. They are being seen for yearly dilated eye examinations. Goals: SBP less than 130, LDL less than 100, FBS less than 140, A1C less than 7%. They are checking their BS daily, will which are reviewed at the office visit. Continue regular routine monitoring of A1C,] Microalbumin, Dilated eye exam and Foot exam Feb, Primary hypertension (ICD-10 - I10) This patient is instructed to consume a healthy, low-fat, low-salt diet. They are also encouraged to continue exercise to achieve/maintain a normal BMI. Feb, Elevated cholesterol (ICD-10 - E78.00) Instructed on diet and exercise with continued statin therapy.Discussed the beneficial effects of lowering cholesterol in reducing the risk for cerebrovascular and cardiovascular disease. Feb, DIANA (obstructive sleep apnea) (ICD-10 - G47.33) AHI 11 This patient is aware of the benefits associated with DIANA: With continued use, the patient reduces the risk for MO, CVA, HTN, cardiac dysrhythmias and sudden cardiac deaths.The patient is also aware of the association between DIANA and morning headaches, daytime somnolence, fatigue and obesity Noncompliant Feb, Gastroesophageal reflux disease with esophagitis without hemorrhage (ICD-10 - K21.00) Avoid lying flat after eating. Avoid eating 2 hours prior to bedtime. Smaller, frequent meals may be better tolerated.Weight loss if overweight.PPI with any heartburn.Monitor for dysphagia. 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 Instructed to use Mary D daily as well as Flonase. Avoid Steroids due to diabetes and recent surgery. Feb, Non-seasonal allergic rhinitis due to pollen (ICD-10 - J30.1) Mary D daily. Call w/ any purulent drainage or fever [employer] Other 11-27-2023 Evaluation note* Encounter Date Diagnosis Assessment Notes Treatment Notes Treatment Clinical Notes Jan, Acute non-recurrent maxillary sinusitis (ICD-10 - J01.00) Instructed to use Robitussin or Mucinex for cough, saline or Flonase NS for congestion, Tylenol for pain and fever. Jan, Salpingitis of left eustachian tube (ICD-10 - H68.002) Flonase NS daily Valsalva maneuver to open ET. [employer] Other 10-01-2023 NoteAdmission Information admitted for elective spine surgery Hospital Course uneventful surgery. uneventful post op course. passing gas. no bm. no abd pain. tolerating po. ambulating in the halls. he has a wheeled walker at home. leg pain resolved with surgery. Significant Findings stenosis Medications Home baclofen 20 mg oral tablet, 20 mg= 1 tabs, Oral, HS (at bedtime) benazepril 10 mg oral tablet, 10 mg= 1 tabs, Oral, qAM Crestor 20 mg oral tablet, 20 mg= 1 tabs, Oral, HS (at bedtime) Elavil 25 mg oral tablet, 25 mg= 1 tabs, Oral, HS (at bedtime) Emgality Prefilled Syringe, Subcutaneous, qMonth HumaLOG KwikPen 100 units/mL injectable solution Januvia 50 mg oral tablet, 50 mg= 1 tabs, Oral, Daily Lantus Solostar Pen 100 units/mL subcutaneous solution, 50 units, Subcutaneous, HS (at bedtime) Lexapro 20 mg oral tablet, 20 mg= 1 tabs, Oral, HS (at bedtime) Maxalt 10 mg oral tablet, 10 mg= 1 tabs, Oral, Daily, PRN omeprazole 40 mg oral delayed release capsule, 40 mg= 1 caps, Oral, qAM Xanax 0.5 mg oral tablet, 0.5 mg= 1 tabs, Oral, TID ZyrTEC 10 mg oral tablet, 10 mg= 1 tabs, Oral, qAM Prescriptions docusate sodium 100 mg oral capsule, 100 mg, Oral, BID oxyCODONE-acetaminophen 5 mg-325 mg oral tablet, 1 tabs, Oral, q4hr, PRN Procedures and Treatment Provided L5-s1 PLIF 12/07/22 Physical Exam Vitals & Measurements T: 36.5 ?C (Oral) HR: 87 (Peripheral) RR: 16 BP: 116/75 SpO2: 94% HT: 190.5 cm HT: 191 cm WT: 93.6 kg BMI: 26.45 BMI: 26.32 5/5 hailey LE strength Additional Vitals No qualifying data available. Discharge Plan Status post lumbar spinal fusion assessment: 1. pod 2 L5-S1 PLIF 12/07/22 2. pre op MRI Lumbar 10/27/2021: L5-S1 disc bulge with severe bilateral neuroforaminal stenosis withmass effect on the L5 nerves. L4-5 disc bulge with mild left, moderate right foraminal narrowing. T12-L1 small disc protrusion with mild central canal stenosis. 3. HTN, depression, anxiety, asthma, recent melanoma 4. Chronic neck pain 5. New diagnosis of diabetes - on Lantus, Januvia and insulin ss - last A1C 7.7 Plan: d/c hemovac d/c home Orders: Communication Order Communication Order Discharge Patient Patient Discharge Condition improved Discharge Disposition home Electronically signed by Layne LEGER, Feliciano Chapa 12/09/22 06:35 [facility] 12-07-2022 NoteIndication for Surgery 1. Low back pain x years, progressive with B/L radiculopathy, L>R. Low back pain > legs. 2. MRI Lumbar 10/27/2021: L5-S1 disc bulge with severe bilateral neuroforaminal stenosis with mass effect on the L5 nerves. L4-5 disc bulge with mild left, moderate right foraminal narrowing. T12-L1 small disc protrusion with mild central canal stenosis. 3. HTN, depression, anxiety, asthma, recent melanoma 4. Chronic neck pain 5. New diagnosis of diabetes - on Lantus, Januvia and insulin ss - last A1C 7.7 Preoperative Diagnosis 1. Low back pain x years, progressive with B/L radiculopathy, L>R. Low back pain > legs. 2. MRI Lumbar 10/27/2021: L5-S1 disc bulge with severe bilateral neuroforaminal stenosis with mass effect on the L5 nerves. L4-5 disc bulge with mild left, moderate right foraminal narrowing. T12-L1 small disc protrusion with mild central canal stenosis. 3. HTN, depression, anxiety, asthma, recent melanoma 4. Chronic neck pain 5. New diagnosis of diabetes - on Lantus, Januvia and insulin ss - last A1C 7.7 Postoperative Diagnosis 1. Low back pain x years, progressive with B/L radiculopathy, L>R. Low back pain > legs. 2. MRI Lumbar 10/27/2021: L5-S1 disc bulge with severe bilateral neuroforaminal stenosis with mass effect on the L5 nerves. L4-5 disc bulge with mild left, moderate right foraminal narrowing. T12-L1 small disc protrusion with mild central canal stenosis. 3. HTN, depression, anxiety, asthma, recent melanoma 4. Chronic neck pain 5. New diagnosis of diabetes - on Lantus, Januvia and insulin ss - last A1C 7.7 Operation Fusion Spine Lumbar Posterior with Navig, L5-S1 LAMINECTOMY FIXATION FUSION, PLIF Medtronic Solera 5.5 screws, O-Arm, Stealth Navigation Surgeon(s) Layne LEGER, Feliciano Chapa (Surgeon - Primary) Rail Splitter Ines SCHULTZ, Raad Carr (Cancer Program Consultant) Anesthesia General Stanford Garza (Provider) Estimated Blood Loss 100.0 mL Urine Output 700.0 mL Findings stenosis Specimen(s) none Complications none Technique The patient was brought to the OR under the care of anesthesia and after intubation the patient wascarefully turned prone on the kristy table with all pressure points padded. The back was prepped and draped for an L5-S1 laminectomy. I created an incision with a scalpel and dissected with a bovie to the edges of the transverse processes/sacral ala and placed a retractor and performed an OArm spin after placing the navigation clamp. The image was obtained and fed into the [employer] and the navigation system was assessed for accuracy. I proceeded with pedicle screw placement bilaterally at L5, S1 by drilling with the matchstick bit then traversing the pedicle with the navigated gearshift then feeling the hole with the ball tip probe then tapping the hole and placing the navigated screw. All screws tested well. L5 screws were 6.5mm in diameter. S1 screws were 7.5 mm in diameter. The screws at L5 were 50 mm in length and the screws at S1 were 45 mm in length. I performed an L5-s1 laminectomy with the 6 extra coarse caitlin bit removed the remaining bone andligament with the 3 and 4 punch. I drilled the bilateral L5-s1 foramen with the 6 extra coarse caitlin bit and decompressed the exiting L5 nerves with the 3 punch. It was clear that the segment was destabilized and required pedicle screw fixation. Next, I proceeded with posterior lumbar interbody fusion at L5-S1. I performed an annulotomy on theright side at L5-s1 and removed disc material with the pituitary and endplate scrapers. I placed a Spinewave Velocity interbody implant and expanded to 11mm after filling the disc with osteoamp flowable dbm. I obtained AP and Lat fluoro images to confirm the adequacy of hardware and I was pleased. I decorticated bone lateral to the hardware and irrigated the back and placed autograft and magnifuse and carli lateral to the hardware after placing titanium rods bilaterally and locking down the set screws with the torque device giving compression on the screws. I placed a medium hemovac and obtained hemostasis and closed fascia with interrupted 0 vicryl and closed subcutaneous tissue with inverted interrupted 0 vicryl and close skin with nena. I did place vanco powder above the fascia. All counts were correct and there were no complications. Blood loss was minimal. This surgical procedure was assisted by my physician?s business office assistant. Her presence was needed throughout the case for positioning the surgical instruments as well as primarily assisting me through the procedure. Due to the complexity of condition, the skill set of a neurosurgical physician business office assistant was needed throughout the case. During the surgical case, the centrifugal chiller technician was working the back tableand was not available for assistance. Tourniquet Time none Sponge/Needle Count all accounted for Fluid Count 1600cc Catheters, Drains, Tubes Device: Branch Tray 16FR Latex Free [id number] [employer] (more content not included)...[facility] 11-28-2022 Evaluation note* Encounter Date Diagnosis Assessment Notes Treatment Notes Treatment Clinical Notes Nov, Type 2 diabetes mellitus with hyperglycemia (ICD-10 - E11.65) Stable w/ A1C 7% w/ average BS 150. Decrease Lantus to 25u the night prior to surgery. Hold Humalog the morning of surgery. Would anticipate frequent accu checks w/ insulin sliding scale during his postoperative period. Nov, Wellness examination (ICD-10 - Z00.00) I have seen and examined Mr. Dumont for his wellness examination as well as his preoperative evaluation. He is UTD w/ preventive testing for his age group. He has been instructed to hold ASA, NSAIDs and fish oil for 7 days prior to surgery. He has been instructed to decrease his Lantus to 25u the night prior to surgery. He has been instructed to hold his Humalog the morning of surgery. Nov, Primary hypertension (ICD-10 - I10) Stable, continue medications w/o interruption. Nov, Elevated cholesterol (ICD-10 - E78.00) Stable, continue medication w/o interruption. Nov, DIANA (obstructive sle ep apnea) (ICD-10 - G47.33) AHI 11 Mild DIANA, not presently using CPAP. Instructed to avoid sleeping on his back and to continue w/ weight loss measures. Nov, Gastroesophageal reflux disease with esophagitis without hemorrhage (ICD-10 - K21.00) Stable w/o heartburn or dysphagia. Continue treatment w/o interruption Nov, MARTHA (generalized anxiety disorder) (ICD-10 - F41.1) Stable. Nov, USP (current) use of insulin (ICD-10 - Z79.4) [facility] Other 08-15-2023 Evaluation note* Encounter Date Diagnosis Assessment Notes Treatment Notes Treatment Clinical Notes Oct, Type 2 diabetes mellitus with hyperglycemia (ICD-10 - E11.65) Much improved w/ recent A1C 7.7% (average BS < 180) - average BS per his CGM is lower I reviewed his treatment and instructed him to decrease his basal insulin to 35u the night prior to surgery and to hold his morning short acting insulin. Oct, Preop exam for internal medicine (ICD-10 - Z01.818) Mr. Dumont has been evaluated for surgery and medications reviewed. Instructed to hold his insulin and his Januvia the morning of surgery. Oct, Primary hypertension (ICD-10 - I10) Stable, continue medication w/o interruption Oct, Elevated cholesterol (ICD-10 - E78.00) Stable, continue medication w/o interruption Oct, DIANA (obstructive sle ep apnea) (ICD-10 - G47.33) AHI 11 Does not use PAP due to intolerance to wearing mask and mild disease. Instructed to avoid sleeping on back AHI 11 Oct, Gastroesophageal reflux disease with esophagitis without hemorrhage (ICD-10 - K21.00) Stable, continue medication w/o interruption Oct, MARTHA (generalized anxiety disorder) (ICD-10 - F41.1) Stable, continue medication w/o interruption Oct, USP (current) use of insulin (ICD-10 - Z79.4) [facility] [facility] Other 07-07-2023 Evaluation note* Encounter Date Diagnosis Assessment Notes Treatment Notes Treatment Clinical Notes Sep, Type 2 diabetes mellitus with hyperglycemia (ICD-10 - E11.65) This patient is following a comprehensive diabetic treatment plan. They are checking their feet daily for calluses and nonhealing ulcers. They are being seen for yearly dilated eye examinations. Goals: SBP less than 130, LDL less than 100, FBS less than 140, AC and A1C less than 7%. They are checking their BS daily, will which are reviewed at the office visit. Continue regular routine monitoring of A1C,] Microalbumin, Dilated eye exam and Foot exam Check next A1C in 2-3 wks. Increase Lantus 2u/3days until reach 50 or FBS < 140 Increase pre meal insulin to 8u + correction _update office next week Sep, USP (current) use of insulin (ICD-10 - Z79.4) Sep, Primary hypertension (ICD-10 - I10) This patient is instructed to consume a healthy, low-fat, low-salt diet. They are also encouraged to continue exercise to achieve/maintain a normal BMI. Patient is instructed on home BP measurements: - rest for 5 minutes w/o talking- positioned w/ feet on floor and arm supported- average best 2/3 readings w/ goal < 135-85 Sep, Overweight (ICD-10 - E66.3) This patient has been instructed on a low-fat, high-fiber diet. They are instructed to reduce calories, portion sizes and snacks. It is recommended that they exercise for 30 minutes, 3-5 times weekly. [facility] Other 06-07-2023 Evaluation note* Encounter Date Diagnosis Assessment Notes Treatment Notes Treatment Clinical Notes Aug, Type 2 diabetes mellitus with hyperglycemia (ICD-10 - E11.65) This patient is following a comprehensive diabetic treatment plan. They are checking their feet daily for calluses and nonhealing ulcers. They are being seen for yearly dilated eye examinations. Goals: SBP less than 130, LDL less than 100, FBS less than 140, AC and A1C less than 7%. They are checking their BS daily, will which are reviewed at the office visit. Continue regular routine monitoring of A1C,] Microalbumin, Dilated eye exam and Foot exam Continue to titrate basal insulin 2u every 2 days. - max 50u or FBS < 150 Continue ISS coverage Aug, Elevated cholesterol (ICD-10 - E78.00) Instructed on diet and exercise with continued statin therapy.Discussed the beneficial effects of lowering cholesterol in reducing the risk for cerebrovascular and cardiovascular disease. Aug, Primary hypertension (ICD-10 - I10) This patient is instructed to consume a healthy, low-fat, low-salt diet. They are also encouraged to continue exercise to achieve/maintain a normal BMI. Aug, USP (current) use of insulin (ICD-10 - Z79.4) [facility] Other 05-31-2023 Evaluation note* Encounter Date Diagnosis Assessment Notes Treatment Notes Treatment Clinical Notes July, Type 2 diabetes mellitus with hyperglycemia, without long-term current use of insulin (ICD-10 - E11.65) [facility] Other 05-30-2023 Evaluation note* Encounter Date Diagnosis Assessment Notes Treatment Notes Treatment Clinical Notes July, Primary hypertension (ICD-10 - I10) This patient is instructed to consume a healthy, low-fat, low-salt diet. They are also encouraged to continue exercise to achieve/maintain a normal BMI. July, Type 2 diabetes neel itus with hyperglycemia, without long-term current use of insulin (ICD-10 - E11.65) Refer to diabetic education. Begin healthy diet, exercise and weight loss Begin Accu cheks AC Begin treatment w/ basal insulin and meal time insulin at largest meal Record BS readings before each meal and bring to office for review July, Pure hypercholestero lemia (ICD-10 - E78.00) Instructed on diet and exercise with continued statin therapy.Discussed the beneficial effects of lowering cholesterol in reducing the risk for cerebrovascular and cardiovascular disease. July, Gastroesophageal ref lux disease with esophagitis without hemorrhage (ICD-10 - K21.00) Diet instructions: Smaller portions, avoid eating and laying flat, avoid eating or drinking prior to bedtime. Weight loss. July, MARTHA (generalized anx iety disorder) (ICD-10 - F41.1) Instructed on healthy diet, exercise and keeping active. No change in treatment July, DIANA (obstructive sle ep apnea) (ICD-10 - G47.33) AHI 11 This patient is aware of the benefits associated with DIANA: With continued use, the patient reduces the risk for MO, CVA, HTN, cardiac dysrhythmias and sudden cardiac deaths.The patient is also aware of the association between DIANA and morning headaches, daytime somnolence, fatigue and obesity, which also has been improved with continued use.The patient is compliant with treatment, wearing the equipment every night for greater than 4 hours.The patient is instructed to continue use of the CPAP for DIANA treatment. July, Lumbar spondylosis (ICD-10 - M47.106) Scheduled for lumbar fusion, which will be postponed until diabetes brought under control [facility] Other 03-09-2023 Miscellaneous Notes* Telephone Encounter - Shyanne Rodríguez APRN.NIEVES - 05/17/2022 4:06 PM EST LVM: updated on MRE which shows no signs of IBD. +constipation. L5-S1 degenerative narrowing in thespine and a 2cm benign R renal cyst. Advised follow up OV for ongoing symptoms. [facility] Miscellaneous Notes* Telephone Encounter - Edi Vee LPN - 04/30/2022 1:06 PM EST Patient calling the office requesting MRE order , Facesheet and OV note to be faxed to [facility]. I did fax everything over the patient is requesting. Faxed it to [phone]. I did receive confirmation that the fax did go through. The patient is aware he has to get the disk for Dr. Llamas to read the MRE. Patient verbalized good understanding. Edi Vee LPN documented in this encounterS[facility] [place]01-16-2023 Miscellaneous Notes* Telephone Encounter - Sarah Freed RN - 03/26/2022 10:56 AM EST Patient's request for medication is as follows: Requested Prescriptions Pending Prescriptions Disp Refills omeprazole (PRILOSEC) 40 mg capsule [Pharmacy Med Name: OMEPRAZOLE DR 40 MG CAPSULE] 90 capsule 0 Sig: TAKE 1 CAPSULE BY MOUTH ONCE DAILY Prescription(s) as above. Please process accordingly. MATT Jones, 03/15/2022 1:11 PM EST Back to Top Please review path from EGD/colonoscopy with pt which reveals normal small bowel mucosa, normal gastric mucosa, normal TI and random colon bx, 1 TA removed. Repeat EGD PRN. Repeat colonoscopy in 5 yrs. MRE ordered after procedure. Follow up in the office with Bryn. Carpenter documented in this encounterS[facility]-2023 Miscellaneous Notes* Telephone Encounter - Gita Hector RN - 03/15/2022 4:01 PM EST Results were reviewed with pt. He states the MRE is being scheduled out into June at [facility]. He is going to look for an appt out towards [place] if able. He will call office to have the orders faxed once he finds a facility. Sending as . 5 [address] recall [address] in [address]. Gita Hector RN * Telephone Encounter - Gita Hector RN - 03/15/2022 4:00 PM EST ----- Message from Vashti Llamas DO sent at 03/15/2022 1:11 PM EST ----- Please review path from EGD/colonoscopy with pt which reveals normal small bowel mucosa, normal gastric mucosa, normal TI and random colon bx, 1 TA removed. Repeat EGD PRN. Repeat colonoscopy in 5 yrs. MRE ordered after procedure. Follow up in the office with Bryn. Carpenter cl documented in this encounterS[facility]-2023 Miscellaneous Notes* Telephone Encounter - Shyanne Rodríguez APRN.CNP - 03/15/2022 2:33 PM EST LVM: Updated pt on EGD/colon and path results. Neg HP, sprue, colitis, and ileitis on bx. Mod gastritis on EGD. Colon polyp was a TA- due for repeat in 5 years. Asked him to schedule the ordered MRE givensymptom severity to r/o more proximal small bowel Crohn's. Can resume the omeprazole for the dysphagia and gastritis seen on EGD. documented in this encounterS[facility]01-[facility]-2023 Evaluation note* Encounter Date Diagnosis Assessment Notes Treatment Notes Treatment Clinical Notes Mar, Tubular adenoma of colon (ICD-10 - D12.6) [facility] Other 01-01-2023 History general Narrative - Reported* Type Description Date Medical History Hypertension Surgical History cholecystectomy Surgical History hernia repair Surgical History Inguinal Lymph node removed Surgical History colonoscopy, repeat 03/2022 Surgical History EGD, repeat 03/202203/15/2021 Hospitalization History See Above [facility] Other 01-01-2023 History general Narrative - Reported* Type Description Date Medical History Hypertension Medical History DIANA Surgical History cholecystectomy Surgical History hernia repair Surgical History Inguinal Lymph node removed Surgical History colonoscopy, repeat 03/2022 Surgical History EGD, repeat 03/202203/15/2021 Hospitalization History See Above [facility] Other 01-01-2023 History general Narrative - Reported* Type Description Date Medical History Hypertension Medical History DIANA Surgical History cholecystectomy Surgical History hernia repair Surgical History Inguinal Lymph node removed Surgical History colonoscopy, repeat 03/2022 Surgical History EGD, repeat 03/202203/15/2021 Surgical History Lumbar laminectomy, fusion 11/28 22 Hospitalization History See Above [facility] Other 12-27-2022 Miscellaneous Notes* Telephone Encounter - Karissa Betts Ma - 03/06/2022 1:11 PM EST Spoke with patient and confirmed appointment time and prep. documented in this encounterS[facility]10-24-2022 NoteHNO ID: [id number] Author: Shyanne Rodríguez APRN.COOPERER Service: ? Author Type: Nurse Practitioner Type: Progress Notes Filed: 01/01/2022 1:53 PM Note Text: DEPARTMENT OF GASTROENTEROLOGY - NEW PATIENT/CONSULT REASON FOR VISIT Donell Dumont is a 46 year old male who is scheduled for a second opinion on management of IBS. HISTORY OF PRESENT ILLNESS Donell Dumont is a 46 year old male who presents today for an evaluation of IBS. PMH includes acid reflux, IBS, abnormal EKG, adverse effect of anesthesia(vomiting) Anxiety/Depression, Migraines, Asthma, hypercholesteremia, HTN, Pericarditis, chronic back pain, cervical spondylosis, DDD. Reports being diagnosed with IBS since the age of 8. What brought him in for this appointment is the fact that IBS is controlling his life due to the frequency and urgency associated with abdominal ache. Always has to think about what he is doing, where he is going and having to fast to prevent or lessen these symptoms. The symptoms have been fairly consistent over the years. Reports having 6-15 bms a day ranging from liquid to soft in consistency. Has urgency with fluids other than clears as well as with food. Glen his meal, he has to run to the bathroom. Reports occasional BRB in toilet bowl, thinks its from hemorrhoids. Noticed it was exacerbated when he was taking Advil for the arthritis. Now is taking Aleve which he states he has been ok with. In the past, he has worked with a dietitian and tried several diets including elimination, low FODMAP, lactose/gluten free without any relief in symptoms. His 2 biggest triggers are foods with MSG and Nutritional yeast. Reports skipping breakfast and lunch and only eating dinner. With fasting, symptoms are not as bad or urgent. Reports having a total of 4 bowel accidents a year usually related to eating during the day. In the past he has tried Imodium(with some short term relief)/Colestid/Lomotil/Xifaxan/Fiber without any relief in symptoms. Has noticed when he had steroids for the back pain, the diarrheal symptoms/pain were better. 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 Also reports dysphagia for the past few years. Had dilation a few years ago in [place]. Repeat EGD early 2021 showed no strictures, no dilation was done this time per patient. Feels like there is a hiatal hernia, eats small meals. Feels food stuck in the epigastric region and gives it time to go away.At times he will vomit the contents. Overall, dysphagia symptoms are getting worse. Does have acid reflux which he takes PRN TUMS with short term relief. Was taking Omeprazole in the past with good symptom management however stopped taking it due to too many medications at the time. NSAID: Aleve takes for 2 weeks daily, no symptom change with bowels, helps with back pain Meds Vujbsib-vxjzgjacr-vmyatbfxi fix when traveling. overdoses on it, not taking anything else Xanax lexapro Never smoker Alcohol use:once a month, 1 beer, doesn't impact gut Drug use:None EGD 07/18/2021 Pathological Diagnosis A. Small intestine, biopsy: - Small intestinal mucosa showing no specific pathologic changes - Preserved villous and crypt architecture - Negative for active inflammation B. Stomach, biopsy: - Mild chronic inactive gastritis - No morphologic evidence of H. pylori microorganisms 01/30/2021 Colonoscopy Pathological Diagnosis Colon, random biopsy: - Colonic mucosa showing no specific pathologic changes - Small lymphoid aggregate - Negative for microscopic colitis 06/20/2021 LABS Calcitonin: <2 Gastrin:<10 Vasoactive Intestinal peptide:46.0 03/10/2021 Ph of stool: 6.0 Fecal pancreatic elastase: >500 PMH Si joint injections acid reflux, IBS, abnormal EKG, adverse effect of anesthesia(vomiting), Anxiety/Depression, Asthma, hypercholesteremia, HTN, Pericarditis(now resolved) and cervical spondylosis, DDD. PSH: Cholecystectomy 2011, diarrhea symptoms have been the same Inguinal hernia repair 2007 Hydrocele Excision/repair 2007 Umbilical hernia repair 2011 Lymph node dissection 2012 Current Outpatient Medications Medication Sig Dispense Refill ALPRAZolam (XANAX) 0.5 mg tablet Take 0.5 mg by mouth. escitalopram oxalate (LEXAPRO) 20 mg tablet Take 20 mg by mouth. rosuvastatin (CRESTOR) 20 mg tablet Take 20 mg by mouth. acetaminophen (TYLENOL) 500 mg tablet Take 1,300 mg by mouth. baclofen (LIORESAL) 20 mg tablet TAKE 1 TABLET BY MOUTH EVERYDAY AT BEDTIME benazepril (LOTENSIN) 10 mg tablet Take 10 mg by mouth once daily. benazepril/hydrochlorothiazide (LOTENSIN HCT ORAL) cetirizine (ZYRTEC) 10 mg tablet fremanezumab-vfrm (AJOVY AUTOINJECTOR) 225 mg/1.5 mL auto-injector colesevelam (WELCHOL) 625 mg tablet Start with 1 tab PO QHS. Increase to 2 tabs if diarrhea persists. 60 tablet 5 omeprazole (PRILOSEC) 4 (more content not included)...[facility] 01-01-2022 Instructions* Patient Instructions* Paige Rizzo APRN.CNP - 01/01/2022 11:42 AM EDT PLAN -Schedule Colonoscopy/EGD MAC -Resume Omeprazole 40 mg once a day -Welchol trial for diarrhea at bedtime -Stool testing for bacteria/pancreatic insufficiency -DRIP DROP/ Liquid IV for hydration documented in this encounterS[facility]10-24-2022 History of Present illness Narrative* Shyanne Rodríguez APRN.CNP - 01/01/2022 10:40 AM EDT DEPARTMENT OF GASTROENTEROLOGY - NEW PATIENT/CONSULT REASON FOR VISIT Donell Dumont is a 46 year old male who is scheduled for a second opinion on management of IBS. HISTORY OF PRESENT ILLNESS Donell Dumont is a 46 year old male who presents today for an evaluation of IBS. PMH includes acid reflux, IBS, abnormal EKG, adverse effect of anesthesia(vomiting) Anxiety/Depression, Migraines, Asthma, hypercholesteremia, HTN, Pericarditis, chronic back pain, cervical spondylosis, DDD. Reports being diagnosed with IBS since the age of 8. What brought him in for this appointment is the fact that IBS is controlling his life due to the frequency and urgency associated with abdominal ache. Always has to think about what he is doing, where he is going and having to fast to prevent or lessen these symptoms. The symptoms have been fairly consistent over the years. Reports having 6-15 bms a day ranging from liquid to soft in consistency. Has urgency with fluids other than clears as well as with food. Glen his meal, he has to run to the bathroom. Reports occasional BRB in toilet bowl, thinks its from hemorrhoids. Noticed it was exacerbated when he was taking Advil for the arthritis. Now is taking Aleve which he states he has been ok with. In the past, he has worked with a dietitian and tried several diets including elimination, low FODMAP, lactose/gluten free without any relief in symptoms. His 2 biggest triggers are foods with MSG and Nutritional yeast. Reports skipping breakfast and lunch and only eating dinner. With fasting, symptoms are not as bad or urgent. Reports having a total of 4 bowel accidents a year usually related to eating during the day. In the past he has tried Imodium(with some short term relief)/Colestid/Lomotil/Xifaxan/Fiber without any relief in symptoms. Has noticed when he had steroids for the back pain, the diarrheal symptoms/pain were better. 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 Also reports dysphagia for the past few years. Had dilation a few years ago in [place]. Repeat EGDearly 2021 showed no strictures, no dilation was done this time per patient. Feels like there is a hiatal hernia, eats small meals. Feels food stuck in the epigastric region and gives it time to go away.At times he will vomit the contents. Overall, dysphagia symptoms are getting worse. Does have acid reflux which he takes PRN TUMS with short term relief. Was taking Omeprazole in the past with good symptom management however stopped taking it due to too many medications at the time. NSAID: Aleve takes for 2 weeks daily, no symptom change with bowels, helps with back pain Meds Xmzzsus-oiiozwgib-rmerzooyn fix when traveling. overdoses on it, not taking anything else Xanax lexapro Never smoker Alcohol use:once a month, 1 beer, doesn't impact gut Drug use:None EGD 07/18/2021 Pathological Diagnosis A. Small intestine, biopsy: - Small intestinal mucosa showing no specific pathologic changes - Preserved villous and crypt architecture - Negative for active inflammation B. Stomach, biopsy: - Mild chronic inactive gastritis - No morphologic evidence of H. pylori microorganisms 01/30/2021 Colonoscopy Pathological Diagnosis Colon, random biopsy: - Colonic mucosa showing no specific pathologic changes - Small lymphoid aggregate - Negative for microscopic colitis 06/20/2021 LABS Calcitonin: <2 Gastrin:<10 Vasoactive Intestinal peptide:46.0 03/10/2021 Ph of stool: 6.0 Fecal pancreatic elastase: >500 PMH Si joint injections acid reflux, IBS, abnormal EKG, adverse effect of anesthesia(vomiting), Anxiety/Depression, Asthma,hypercholesteremia, HTN, Pericarditis(now resolved) and cervical spondylosis, DDD. PSH: Cholecystectomy 2011, diarrhea symptoms have been the same Inguinal hernia repair 2007 Hydrocele Excision/repair 2007 Umbilical hernia repair 2011 Lymph node dissection 2011 Current Outpatient Medications Medication Sig Dispense Refill ALPRAZolam (XANAX) 0.5 mg tablet Take 0.5 mg by mouth. escitalopram oxalate (LEXAPRO) 20 mg tablet Take 20 mg by mouth. rosuvastatin (CRESTOR) 20 mg tablet Take 20 mg by mouth. acetaminophen (TYLENOL) 500 mg tablet Take 1,300 mg by mouth. baclofen (LIORESAL) 20 mg tablet TAKE 1 TABLET BY MOUTH EVERYDAY AT BEDTIME benazepril (LOTENSIN) 10 mg tablet Take 10 mg by mouth once daily. benazepril/hydrochlorothiazide (LOTENSIN HCT ORAL) cetirizine (ZYRTEC) 10 mg tablet fremanezumab-vfrm (Nu3OVY AUTOINJECTOR) 225 mg/1.5 mL auto-injector colesevelam (WELCHOL) 625 mg tablet Start with 1 tab PO QHS. Increase to 2 tabs if diarrhea persists. 60 tablet 5 omeprazole (PRILOSEC) 40 mg capsule Take 1 capsule by mouth once daily. 90 capsule 0 No current facility-administered medications for this visit. Allergies No known allergies *s/p melchor, failure Xifaxan and colestipol to date Past esophageal dilation with present dysphagia Social History Tobacco Use Smoking status: Never Smokeless tobacco: Never Vaping Use Vaping Use: Never used Substance Use Topics Alcohol use: Not Currently Drug use: Not Currently FAMILY HISTORY (grandparents, parents, brothers, sisters, aunts, or uncles) Liver Problems:Mom- fatty liver Ulcerative Colitis: No Crohn's Disease: No Colon Cancer: Yes Father (esophageal/stomach/bladder) and Paternal Grandfather Colon Polyps: Yes Father, Mom, sister IBS: No Celiac disease: No Bleeding Disorders: No GI SPECIFIC REVIEW OF SYMPTOMS Difficulty swallowing / foods sticking in throat: yes, food stuck in epigastric region gives it time and goes away or vomitts it, once a week Heartburn: yes, epigastric burning, tightness. Takes Tums with temporary relief, brobably from not eating. Omeprazole was working Hoarseness: Yes since he was very young Chronic cough: no Regurgitation: yes Chest pain: no Filling up quickly at meals:no Loss of appetite: No Nausea: no Vomiting: yes, about once a week Abdominal pain: yes, R/L lower abdominal pain as well as epigastric pain Recent change in bowel movements: no Bloody or black, bowel movements: yes, BRB, in the water, about 1/2 a tsp Constipation: no Diarrhea: yes Loss of control of bowel movements: yes, at times Night sweats: no Fever: no Chills: no Thought or memory problems: no Prominent leg swelling: no Vomiting blood: no Recent change in weight: Yes, lost about 30 lbs within a year from eliminating some meds e.g steroids. More mindful of what he is eating REVIEW OF SYSTEMS EyesNegative for vision changes, diplopia or epiphora. Ears, Mouth, nose, throat:No problems Cardiovascular: No Problems Respiratory: Negative for cough, wheezing and shortness of breath Gastrointestinal : see above Genitourinary: negative Musuloskeletal: joint pain Integumentary: no rashes, lesions, or jaundice Neurological: Migraines Endocrine: Negative for cold or heat intolerance, polyuria, polydipsia and goiter. Psychiatric: Cooperative and agreeable Allergic/ Immunologic: Itching and Watery eyes, stuffy (seasonal) All others negative PAST MEDICAL HISTORY Colon polyps: yes Colon cancer: no Other cancer: no Radiation / Chemotherapy: no Crohn's disease / Ulcerative colitis: no High cholesterol or triglycerides: Yes Ulcers: no Gallstones:Chelecystetomy Hepatitis / Jaundice: no Heart Disease: no Lung Disease: no Liver problems: no Thyroid disease: no Kidney stones: no Pancreatitis: no Diabetes: no Arthritis: yes from neck, back Gastrointestinal bleeding: yes Depression or other mental illness: yes, anxiety/depression PHYSICAL EXAMINATION BP 147/98 Pulse 71 Wt 212 lb (96.2kg) General Appearance: Well appearing, alert, in no acute distress, well-hydrated, well nourished. Eyes: PERRLA, conjunctiva and sclera normal, wears glasses Oropharynx: Lips, tongue, and oral mucosa normal. There is no thrush or oral ulcers. Lungs:breath sounds clear to auscultation bilaterally, no crackles, rhonchi, or wheezes Heart: regular rate and rhythm, no murmurs or gallops. Abdomen: no palpable mass, no organomegaly +Right and Left Lower abd sharp stabbing pain on palpation. Epigastric aching pain on palpation Extremities: no cyanosis or edema Skin: no jaundice, no spider angiomas, no palmar erythema Neuro:alert, oriented x 3, pleasant and in no acute distress RECENT LABS CBC: No results found for: WBC, HCT, MCV, PLT, NEUT, LYMPHP Comprehensive Metabolic Panel: No results found for: GLUC, BUN, CREAT, NA, K, CHLOR, CO2, TPROT, ALB, CA, ALKPHOS, TBILI, AST, ALT Assessment IMPRESSION Mr. Dumont is a 46 year old year old male who presents for evaluation of IBS. PMH includes cholecystectomy, acid reflux, IBS, adverse effect of anesthesia (vomiting), Anxiety/Depression, Asthma, hypercholesteremia, HTN, pericarditis ?viral (resolved) and cervical spondylosis, DDD. Reports being diagnosed with IBS since 8 years old. Due to the frequency and urgency of the bowel movements (6-15 a day) and poor quality of life he presented today for a second GI opinion. In the past he has tried Imodium/Colestid/Xifaxan/Fiber and several diets without any improvement in symptoms. He is s/p cholecystectomy. The only time he had some relief in symptoms was when he was on short term Prednisone for the arthritis. Colonoscopies to date have been normal with a one time benign polyp (per pt.) He also reports of symptoms of acid reflux, dysphagia s/p dilation a few years ago. Will obtain stool testing to rule out any infectious causes plus elastase to check for pancreatic insufficiency. Will order a colonoscopy with random and TI bx and EGD for dysphagia. Will do a trial of Welchol for symptom management. I recommend restarting Omeprazole 40 mg once a day for the acid reflux and dysphagia symptoms. Further instructions will be given after the procedures. Due to the frequent diarrhea, I recommend hydration solutions such as DripDrop and Liquid IV. If possible, take Tylenol instead of Aleve for pain management. PLAN -Colonoscopy random bx: colon and TI bx/EGD for dysphagia with duod bx MAC -Welchol trial -Resume Omeprazole 40 mg once a day -Elastase testing, O+P, Enteric panel, cdif -DRIP DROP/Liquid IV solutions for hydration Paige Rizzo APRN.CNP January 01, 2022 12:26 PM Attending Note I have personally performed a face to face assessment of the patient and have reviewed the JAKE note. My barreto findings include: Agree with above. Chronic severe IBS-D hx failing colestipol, fiber, Imodium, Xifaxan to date. S/p melchor. He has had several unremarkable colonoscopies to date. He also endorses dysphagia with past dilation reported. Will screen for EPI, micro/macroscopic colitis and assess the dysphagia (resume PPI as well.) Can try Welchol since he failed colestipol. May ultimately need addition of TCA- would address with mental health provider given Lexapro/Xanax use. Other additions or changes: As edited Signature: Shyanne Rodríguez Date: 01/01/2022 Time: 1:49 PM [facility]* Encounter Date Diagnosis Assessment Notes Treatment Notes Treatment Clinical Notes Dec, Low back pain, unspecified back pain laterality, unspecified chronicity, unspecified whether sciatica present (ICD-10 - M54.50) Dec, Spondylosis of lumbar region without myelopathy or radiculopathy (ICD-10 - M47.816) I have independently reviewed the MRI of the lumbar spine and the report. The patient's clinical symptoms and the findings on the MRI do not match. There is no gross evidence of nerve root impingement no gross evidence of malalignment no gross evidence of canal narrowing that would cause symptoms that this patient is complaining about. I am not certain what to tell him. Neurology also by the way agreed that there does not appear to be a true radiculopathy coming from the back. My recommendation is pain management. The patient understands and agrees, it may at least help his back pain. I see no evidence for surgical intervention [employer] Other 08-09-2022 Evaluation note* Encounter Date Diagnosis Assessment Notes Treatment Notes Treatment Clinical Notes Oct, Low back pain, unspecified back pain laterality, unspecified chronicity, unspecified whether sciatica present (ICD-10 - M54.50) This patient is having persistent low back pain and has had multiple sessions of physical therapy with no improvement. He has some numbness on his anterior thigh that comes and goes and pain down the back of the leg with increased activity on the left. He has no focal findings. Given the fact that he has failed physical therapy and multiple anti-inflammatorie s and behavior modification I am requesting a lumbar MRI for evaluation and treatment. Oct, Balance disorder (ICD-10 - R26.89) Oct, Carpal tunnel syndrome, bilateral (ICD-10 - G56.03) Oct, Cervical spondylosis with radiculopathy (ICD-10 - M47.22) Oct, Lumbar radiculopathy (ICD-10 - M54.16) [employer] Other 06-27-2022 Evaluation note* Encounter Date Diagnosis Assessment Notes Treatment Notes Treatment Clinical Notes Aug, Irritable bowel syndrome with diarrhea (ICD-10 - K58.0) PATIENT STATES THAT THESE ARE LOOSE AND GOING ABOUT 6-8 TIMES. PATIENT IS ADVISED THAT WE WILL REFER TO [facility] AT THIS TIME TO A SUB SPECIALIST. Aug, Gastritis (ICD-10 - K29.70) [employer] Other 06-22-2022 Note [id number]#1.00[facility]06-05-2022 Evaluation note* Encounter Date Diagnosis Assessment Notes Treatment Notes Treatment Clinical Notes Aug, Irritable bowel syndrome with diarrhea (ICD-10 - K58.0) [employer] Other 05-16-2022 Note [id number]03-10-2022 Evaluation note* Encounter Date Diagnosis Assessment Notes Treatment Notes Treatment Clinical Notes May, Irritable bowel syndrome with diarrhea (ICD-10 - K58.0) Increase Lomotil to tid May, Diarrhea (ICD-10 - R19.7) [employer] Other 12-21-2021 Evaluation note* Encounter Date Diagnosis Assessment Notes Treatment Notes Treatment Clinical Notes Feb, Diarrhea (ICD-10 - R19.7) lomotil does help with urgency and total number of bowel movements. will order some labs at this time. [employer] Other 11-11-2021 Evaluation note* Encounter Date Diagnosis Assessment Notes Treatment Notes Treatment Clinical Notes Jan, Irritable bowel syndrome with diarrhea (ICD-10 - K58.0) Continue Lomotil Flex Sig Jan, Fecal urgency (ICD-10 - R15.2) [employer] Other Evaluation noteNo InformationNort [employer] Other Evuohqgbse noteNo assessment information available [facility] Work Phone: Evaluation note* Diagnosis Diarrhea, unspecified type- Primary Esophageal dysphagia Dysphagia, pharyngoesophageal phase Irritable bowel syndrome with diarrhea Irritable bowel syndrome documented in this encounter [facility]ADept[facility]ermat[facility] Evaluation noteNort [employer] Other History general Narrative - Reported* Type Description Date Medical History Hypertension Surgical History cholecystectomy Surgical History hernia repair Surgical History Inguinal Lymph node removed Hospitalization History See Above [employer] Other Hisizjd [facility]ative - [facility] [employer] Other Reason for referral (narrative)* Outpatient Procedure (Routine) - Authorized Specialty Diagnoses / Procedures Referred By Eveline t Referred To Contact [facility] Diagnoses Esophageal dysphagia Procedures EGD DIAGNOSTIC ESOPHAGOGASTRODUODENOSC OPY TRANSORAL DIAGNOSTIC Paige Rizzo, AAKASH.COOPERER [address] [place] [address] [facility] [place] [address] [place] [address] Referral ID Status Reason Start Date Expiration Date Visits Requested Visits Authorized [id number] Authorized Auto-Generat ed Referral 2 01/01/2023 1 1 * Outpatient Procedure (Routine) - Authorized Specialty Diagnoses / Procedures Referred By Eveline veloz Referred To Contact [facility] Diagnoses Diarrhea, unspecified type Procedures COLONOSCOPY DIAGNOSTIC COLONOSCOPY FLX DX W/COLLJ SPEC WHEN PFRMD Paige Rizzo APRN.CNP [address] [place] [address] [facility] [place] [address] [place] [address] Referral ID Status Reason Start Date Expiration Date Visits Requested Visits Authorized [id number] Authorized Auto-Generat ed Referral 2 01/01/2023 1 1 [facility] Name Reason for referral NA NA Dept. of Dermatology Reason for Referral Reason EVAL AND TREAT Diagnosis 1 Irritable bowel synd haleigh with diarrhea (K58.0) Referral Organization [facility] Referring Provider First Name Alvino Referring Provider Last Name Klaudia Referring Provider Specialty Gastroenter ology Ref[facility] Referred Address [address] [place], [place],[address] Referred Provider Specialty Gastroentero logy Referral Priority Routine General Notes Brigid Roth 022 02:24:23 PM > REFERRAL TO GI FOR DIARRHEA. Chief Complaint and Reason for Visit Chief Complaint r27.0 M54.16 Chief Complaint m25.52 Chief Complaint m25.52 M54.50 M54.16 M51.26 M51.36 Family History Relationship Condition Age at Onset Recorded Date/T nilo Not Specified Hypertension Unknown Prediabetes Unknown father Myocardial infarction Unknown Malignant neoplasm of urinary bladder Unk nown Diabetes mellitus Unknown grandparent Malignant neoplasm Unknown grandparent Heart problem Unknown grandparent Parkinson's disease Unknown Cerebrovascular accident (CVA) Unknown Advance Directives Advance Directive Response Recorded Date/ Time Advance Directives No March 23, 2019 1:15pm Summary Purpose Additional Source Comments REASON FOR VISIT (unrecogniz ed section and content) 3 month Follow up Reason Comments New Patient Reason Comments Refill Request Reason Comments Appointment E/C Reason Comments Results Reason Comments Patient Question Fax MRE orders to To [facility] Care Teams (unrecognized sec tion and content) Team Status: Active Member Role Status Dates Jack Ortega , Primary Care Provider Active Team Status: Inactive Member Role Status Dates Jack Jordan , Primary Care Provider, Attending Isabella gregory Active Team Status: Inactive Member Role Status Dates Jack Ortega , Primary Care Provider Active Sandie Luther MD Attending Provider Active Team Status: Inactive Member Role Status Dates Jack Ortega , DO Primary Care Provider Active Geo Ray DO Attending Provider Active Perinatal Instructor Relationship Specialty Start Date End Date Jack Ortega, DO [address] [facility] [place] [address] PCP - General Internal Medicine 01/01/22 [facility] [address] [address] Referring Gastroenterology 09/05/21 Perinatal Instructor Relationship Specialty Start Date End Date Jack Ortega, DO [address] [facility] [place] [address] PCP - General Internal Medicine 01/01/22 Alvino Rudolph [address] [place] [address], [place] [address] Referring Gastroenterology 09/05/21 Perinatal Instructor Relationship Specialty Start Date End Date Jack Ortega, DO [address] [facility] [place] [address] PCP - General Internal Medicine 01/01/[address] [place] [address] Referring Gastroenterology 09/05/21 Perinatal Instructor Relationship Specialty Start Date End Date Jack Ortega, DO [address] [facility] [place] [address] PCP - General Internal Medicine 01/01/22 Cally Rudolphn [address] [facility] [address] [place] [address] Referring Gastroenterology 09/05/21 Team Status: Inactive Member Role Status Dates Jack Ortega DO Primary Care Provider Active NON STAFF Attending Provider Active Perinatal Instructor Relationship Specialty Start Date End Date Jack Ortega DO [address] [facility] [place] [place] [address] PCP - General Internal Medicine 01/01/22 Alvino Rudolph [address] [facility] [address] [place] [address] Referring Gastroenterology 09/05/21 Goals (unrecognized section and content) Goals may be documented in a n alternate section Source Comments (unrecognize d section and content) In the event this informatio n is protected by the Federal Confidentiality of Alcohol and Drug Abuse Patient Records regulations: The Federal rules restrict any use of the information to criminally investigate or prosecute any alcohol or drug abuse patient.[facility] the event this information is protected by the Federal Confidentiality of Alcohol and Drug Abuse Patient Records regulations: The Federal rules restrict any use of the information to criminally investigate or prosecute any alcohol or drug abuse patient.[facility] the event this information is protected by the Federal Confidentiality of Alcohol and Drug Abuse Patient Records regulations: The Federal rules restrict any use of the information to criminally investigate or prosecute any alcohol or drug abuse patient.[facility] the event this information is protected by the Federal Confidentiality of Alcohol and Drug Abuse Patient Records regulations: The Federal rules restrict any use of the information to criminally investigate or prosecute any alcohol or drug abuse patient.[facility] the event this information is protected by the Federal Confidentiality of Alcohol and Drug Abuse Patient Records regulations: The Federal rules restrict any use of the information to criminally investigate or prosecute any alcohol or drug abuse patient.[facility] the event this information is protected by the Federal Confidentiality of Alcohol and Drug Abuse Patient Records regulations: The Federal rules restrict any use of the information to criminally investigate or prosecute any alcohol or drug abuse patient.[facility]ima[facility] the event this information is protected by the Federal Confidentiality of Alcohol and Drug Abuse Patient Records regulations: The Federal rules restrict any use of the information to criminally investigate or prosecute any alcohol or drug abuse patient.[facility]ima[facility] the event this information is protected by the Federal Confidentiality of Alcohol and Drug Abuse Patient Records regulations: The Federal rules restrict any use of the information to criminally investigate or prosecute any alcohol or drug abuse patient.[facility]ima[facility] the event this information is protected by the Federal Confidentiality of Alcohol and Drug Abuse Patient Records regulations: The Federal rules restrict any use of the information to criminally investigate or prosecute any alcohol or drug abuse patient.[facility]ima[facility] the event this information is protected by the Federal Confidentiality of Alcohol and Drug Abuse Patient Records regulations: The Federal rules restrict any use of the information to criminally investigate or prosecute any alcohol or drug abuse patient.[facility] (unrecognized sect ion and content) No Status Records FoundNo Status Records FoundNo Status Records FoundNo Status Records FoundNo Status Records FoundNo Status Records Found INFORMATION SOURCE (unrecogn ized section and content) DATE CREATED AUTHOR 03/03/2022 [facility] DATE CREATED AUTHOR AUTHOR'S ORGANIZ ATION 05/19/2022 [facility] DATE CREATED AUTHOR AUTHOR'S ORGANIZ ATION 07/12/2022 [facility] DATE CREATED AUTHOR AUTHOR'S ORGANIZ ATION 08/18/2022 [facility] DATE CREATED AUTHOR AUTHOR'S ORGANIZ ATION 09/05/2022 [facility] DATE CREATED AUTHOR AUTHOR'S ORGANIZ ATION 02/24/2023 [facility] FOR RECORDS PERTAINING TO PATIENTS WHO ARE OR HAVE BEEN ENROLLED IN A CHEMICAL DEPENDENCY/SUBSTANCEABUSE PROGRAM, SOME INFORMATION MAY BE OMITTED. This clinical summary was aggregated from multiple sources. Caution should be exercised in using it in the provision of clinical care. This summary normalizes information from multiple sources, and as a consequence, information in this document may materially change the coding, format and clinical context of patient data. In addition, data may be omitted in some cases. CLINICAL DECISIONS SHOULD BE BASED ON THE PRIMARY CLINICAL RECORDS. [facility] [employer] [facility]. provides no warranty or guarantee of the accuracy or completeness of information in this document.
[2023-03-01 09:33] LABS: Estimated Average Glucose 134 mg/dL; Glycohemoglobin A1C 6.3 % (4.5-6.2)
== END 2023-03-01 08:48 | disposition home or self-care (01) ==
LOC: LAB 08:47
PROVIDERS: PCP Internal Medicine; Visit Provider Internal Medicine
DX: E11.65 Type 2 diabetes mellitus with hyperglycemia (principal)
CPT/HCPCS: 36415; 83036; 86341

== ENCOUNTER 2023-08-08 10:57 | Outpatient (OUT) | payer BC, SELFPAY ==
--- NOTE | 2023-08-08 | NM_ITS ---
Patient Name: DONELL ANDRE MR#: [id number] : 1975 Exam Date: 08/08/2023 Ordering Doctor: DR CATARINO ORTEGA D.O. RADIOLOGY REPORT PROCEDURE: NM FAINA PERF SPECT REST STR COMPARISON: None. INDICATIONS: CHEST PAIN, TYPE 2 DIABETES, HYPERTENSION TECHNIQUE: Exam Description: Stress/Rest one day protocol gated SPECT Rest Imagin.7 mCi Tc-99m Cardiolite IV on 08/08/2023 Stress Imaging 31.5 mCi Tc-99m Cardiolite IV on 08/08/2023 Exercise Protocol: Andrea Heart Rate (bpm): Rest: 86 Max: 155 PMHR: 90 Blood Pressure: Rest: 132/70 Max: 190/82 Exercise Time: Minutes: 7 Seconds: 0 Stage Reached: Stage: 3 Mets 10.1 Symptoms: Rest and peak stress ECG findings were non-diagnostic and the exercise portion of the study was Non-diagnostic per attending physician Dr. Desmond Ortega . For more details please see separate cardiac stress test report. FINDINGS: QUALITY OF STUDY: Good. PERFUSION DEFECT: None. LOCATION: Basal inferior. SIZE: Small (1-2 segments). SEVERITY: Mild. TYPE: N/A. WALL MOTION: Normal. LV SIZE: Normal. 103 mL. TID / TCD: None; 0.8 LVEF: Normal. Calculated EF 61%. SUMMARY: Myocardial perfusion imaging study is NORMAL. CONCLUSION: 1. No reversible ischemia 2. Non diagnostic stress exam Dictated by: Ming Hill MD on 08/08/2023 at 15:05 Approved by: Ming Hill MD on 08/08/2023 at 15:13
--- NOTE | 2023-08-08 13:06 | PM.STRESS ---
Stress Test Stress Test Requesting physician: Jack Collins Procedure: Treadmill size test General Information: Reason for Stress Test: This test is being performed to evaluate a patient with substernal chest discomfort. Cardiac History and Risk Factors: This patient is a 48-year-old with a positive family history for coronary artery disease along with primary risk factors of essential hypertension and hyperlipidemia and type 2 diabetes mellitus. Resting 12 - Lead Electrocardiogram: The resting 12-lead electrocardiogram reveals sinus rhythm with a ventricular rate of 86 bpm. The QRS interval is 0.10, CT interval 0.20 and the QT interval 0.32. There is no chamber enlargement or pathologic Q waves observed. There is nonspecific ST-T wave changes. Stress Test: Protocol: Andrea protocol Exercise Capacity: This patient demonstrated above average exercise capacity. He exercised for 7 minutes achieving a heart rate of 155 bpm which is equivalent to 90% maximum predicted heart rate. He exercised to stage III of this protocol which is equivalent to 3.4 mph, 14% grade and 10.1 met units. Blood Pressure Response: This patient demonstrated normal blood pressure response to exercise with a resting blood pressure of 132/70 increasing to a peak of 190/82 and gradually returning to baseline during the recovery phase. Rhythm: This patient remained in sinus rhythm during exercise with occasional PVCs noted. ST - Response: At peak exercise there is approximately 1.0mm of horizontal to downsloping ST depression Patient response: The patient denied any exercise-induced chest pain shortness of breath or lightheadedness. Interpretation: This test revealed objective findings suspicious for myocardial ischemia. This patient demonstrated above average exercise capacity with a normal heart rate and blood pressure response to exercise. He also demonstrated a normal heart rate recovery. His Ochoa treadmill score was -3 placing him in the moderate risk category. Cardiolite was injected with images and interpretation pending
== END 2023-08-08 10:58 | disposition home or self-care (01) ==
LOC: NM 10:57
PROVIDERS: Visit Provider Internal Medicine
DX: R07.9 Chest pain, unspecified (principal); E11.65 Type 2 diabetes mellitus with hyperglycemia; I10 Essential (primary) hypertension; E78.00 Pure hypercholesterolemia, unspecified
CPT/HCPCS: 78452; 93017; A9500

== ENCOUNTER 2025-02-01 07:09 | Emergency (ER) | payer BC, SELFPAY ==
--- OUTSIDE RECORDS SUMMARY | 2025-01-18 16:30 | XMS_ITS | Encounter Summary ---
Author Organization [facility] Address [address] [place] [address] Care Team Providers Care Flatcar Whacker Name Role Phone Jack Collins Primary Care Provider [phone] Reason for Visit * ReasonCommentsFollow-upLt achilles Encounter Details DateTypeDepartmentCare Team (Latest Contact Info)Qfayehkijxt48/10/2025 4:30 PM ESTClinical Support [facility] [address] [place] [phone] Gregory Jose DPM [address] [address] Other specified disorders of synovium, right ankle and foot (Primary Dx); Left Achilles tendinitis; Posterior tibial tendonitis of right leg; Contracture of left ankle; Contracture of right ankle Social History Tobacco UseTypesPacks/DayYears UsedDateSmoking Tobacco: NeverSmokeless Tobacco: Never Tobacco Cessation:Counseling Given: Yes Comments:None Alcohol UseStandard Drinks/WeekCommentsNot Currently0 (1 standard drink = 0.6 oz pure alcohol)caffeine: 1-2 cups per dayAUDIT-CAnswerDate RecordedQ1: How often do you have a drink containing alcohol?Monthly or less07/08/2023Q2: How many drinks containing alcohol do you have on a typical day when you are drinking?1 or Q3: How often do you have six or more drinks on one occasion?Never 07/08/2023Sex and Gender InformationValueDate RecordedSex Assigned at BirthMale 04/29/2024 2:06 PM ESTLegal AtaPzqc6705/23/2022 7:00 PM EDTGender IdentityMale 04/29/2024 2:06 PM ESTSexual CxuzmyhvvflSfnvzeir70/19/2025 2:06 PM ESTdocumented as of this encounter Last Filed Vital Signs Vital SignReadingTime TakenCommentsBlood Pressure--Pulse--Temperature-- Respiratory Xpws235803/20/2024 4:24 PM ESTOxygen Saturation--Inhaled Oxygen Concentration--Tbjadz75.7 kg (211 lb)01/18/2025 4:24 PM EZLYlothi405 cm (6' 2 ) 01/18/2025 4:24 PM ESTBody Mass Index27.0901/18/2025 4:24 PM ESTdocumented in this encounter Progress Notes * Gregory Jose, DPM - 01/18/2025 4:30 PM EST Patient: Black E Tim : 1975 PCP: Jack Collins, SUBJECTIVE Pt presents today for follow up of capsulitis and synovitis to the right ankle Currently they rate their pain on a 1-10 scale a 4 States prior treatments of steroid injection and nsaids with Positive improvement in the past. States pain is aggrevated with WB. Pt has also been in CAM walker for left Achilles region Patient has right advanced flatfoot deformity and uses a [place] brace Pt also has left PT tendonitis and has been using an ankle brace and NSAIDs with positive improvement in the past. Patient rates pain a 5 /10. He has severe pes planovalgus and has been wearing brace. with improvement. Patient presents today for follow up of left achilles tendonitis Currently they rate their pain on a 1-10 scale a 7 States prior treatments of steroid injection and nsaids with walking boot with negative improvement Negative improvement with physical therapy and all conservative treatments at this point in time have failed States pain is aggrevated with WB. Allergies: Allergies Allergen Reactions Codeine Hives, Itching and Rash Past Medical History: Past Medical History: Diagnosis Date Anxiety Asthma (HCC) Ataxia CTS (carpal tunnel syndrome) Diabetes mellitus (HCC) Headache Hypertension Insomnia Melanoma (HCC) Migraine Sleep apnea Medications: Current Outpatient Medications: ALPRAZolam (Xanax) 0.5 MG tablet, Take 0.5 mg by mouth as needed at bedtime for anxiety, Disp: , Rfl: amitriptyline (Elavil) 25 MG tablet, TAKE 1/2 TO 1 TABLET BY MOUTH EVERY DAY AT BEDTIME, Disp: 90 tablet, Rfl: 3 baclofen (Lioresal) 20 MG tablet, Take 20 mg by mouth in the morning and 20 mg in the evening and 20 mg before bedtime., Disp: , Rfl: benazepril (Lotensin) 10 MG tablet, Take 10 mg by mouth Daily 1 tablet, Disp: , Rfl: benazepril-hydroCHLOROthiazide (Lotensin HCT) 20-25 MG tablet, Take 1 tablet by mouth Daily, Disp: , Rfl: Cetirizine HCl (ZYRTEC PO), Take by mouth, Disp: , Rfl: Dulaglutide 4.5 MG/0.5ML solution auto-injector, Inject 4.5 mg under the skin 1 (one) time per weekINJECT 4.5 MG (0.5 ML) SUBCUTANEOUSLY ONCE EVERY WEEK FOR 90 DAYS, Disp: , Rfl: escitalopram (Lexapro) 20 MG tablet, Take 20 mg by mouth Daily 1 tablet, Disp: , Rfl: galcanezumab (Emgality) 120 MG/ML auto-injector, Inject 1 Syringe (120 mg) under the skin every 30 (thirty) days, Disp: 1 mL, Rfl: 11 insulin lispro protamine-insulin lispro (HumaLOG MIX 50/50 KWIKPEN) (50-50) 100 UNIT/ML injection, Inject 100 Units under the skin in the morning and 100 Units in the evening. Inject with meals., Disp: , Rfl: isosorbide mononitrate ER (Imdur) 30 MG 24 hr tablet, Every morning, Disp: , Rfl: methylPREDNISolone (Medrol Dospak) 4 MG tablets, Follow schedule on MEDROL PACK package instructions to be used as directed, Disp: 21 tablet, Rfl: 0 metoprolol succinate XL (Toprol-XL) 25 MG 24 hr tablet, Daily at bedtime, Disp: , Rfl: omeprazole (PriLOSEC) [address] capsule, Take 40 mg by mouth in the morning. Take before meals. Do not crush or chew.e 1 capsule 30 minutes before morning meal ., Disp: , Rfl: rosuvastatin (Crestor) 20 MG tablet, Take 20 mg by mouth Daily 1 tablet, Disp: , Rfl: sildenafil (Viagra) 100 MG tablet, Daily, Disp: , Rfl: SITagliptin (Januvia) 50 MG tablet, Take 50 mg by mouth Daily, Disp: , Rfl: Ubrogepant (Ubrelvy) 100 MG tablet, Take 1 tablet by mouth if needed (May repeat in 2 hours. Max of2 tablets in 24 hours.), Disp: 10 tablet, Rfl: 6 Wellbutrin SR 200 MG 12 hr tablet, Take 200 mg by mouth Daily, Disp: , Rfl: Social History: Social History Socioeconomic History Marital status: Spouse name: Not on file Number of children: Not on file Years of education: Not on file Highest education level: Not on file Occupational History Not on file Tobacco Use Smoking status: Never Smokeless tobacco: Never Tobacco comments: None Substance and Sexual Activity Alcohol use: Not Currently Comment: caffeine: 1-2 cups per day Drug use: Never Sexual activity: Yes Partners: Female control/protection: Female Sterilization Other Topics Concern Not on file Social History Narrative Not on file Social Drivers of Health Financial Resource Strain: Not on file Food Insecurity: No Food Insecurity (06/20/2022) Received from [facility] Hunger Screening Within the past 12 months we worried whether our food would run out before we got money to buy more.: Never True Within the past 12 months the food we bought just didn't last and we didn't have money to get more.: Never True Transportation Needs: Not on file Physical Activity: Not on file Stress: Not on file Social Connections: Not on file Intimate Partner Violence: Not on file Housing Stability: Not on file ROS: Gastrointestinal: denies abdominal pain, ulcers, or changes in appetite or bowel habits. Positive history of IBS Musculoskeletal: Positive generalized arthritis to joints and denies loss of strength. Positive history of back pain and multiple spinal surgeries Cardiovascular: denies CP, palpitations, irregular rhythms OBJECTIVE LE EXAM: DERM: Positive hair growth to b/l feet with good skin turgor noted. Negative openings in skin. VASC: Palpable pedal pulsed b/l with warm to cool tibia to toes b/l NEURO: Gross sensation intact digits 1-10 and b/l feet ORTHO: +5/5 DF/PF/IN/EV right, +5/5 DF/PF/IN/EV left. 20 degrees inversion and 10 degrees eversion STJ b/l. Ankle ROM less than 10 degrees b/l. diminished pain on palpation medial gutter and synovium the right ankle joint. positive pain on palpation along right posterior tibial tendon positive pain on palpation left Achilles tendon into retrocalcaneal bursa with negative palpable [place] MRI: PAST MR ankle left wo IV contrast Narrative: [facility] Main [place] [address] [place] [address] MRI Report Signed Patient: Black Dumont MR#: [id number] : 1975 Acct:[id number] Age/Sex: 49 / M ADM Date: 12/29/24 Loc: [facility] Room: Type: [facility] Attending Dr: Gregory Jose DPM Copies to: Gregory Jose DPM Ordering Provider: Gregory Jose DPM Date of Service: 12/29/24 MR/MR ankle LT wo con: suspected partial tear of left Achilles tendon MR ankle LT wo con 12/29/2024 2:03 PM SIGNS AND SYMPTOMS: Left ankle pain and swelling with pain greatest along the Achilles insertion PROTOCOL: Multiplanar multisequence MR images of the left ankle without IV contrast COMPARISON: None FINDINGS: Alignment: Normal. Fluid: Tibiotalar: There is a small joint effusion. A ganglion cyst projects posteriorly measuring 1.5 x 0.8 0.9 cm in greatest dimension.. Subtalar: No joint effusion. Medial: Medial malleolus: Normal. Tendons: Posterior tibial tendon: Fluid is noted along the posterior tibial tendon sheath suggesting tenosynovitis.. Flexor digitorum longus: Intact. Flexor hallucis longus: Intact. Ligaments: Deltoid ligament complex - superficial: Intact. Deltoid ligament complex - deep: Intact. Spring (plantar calcaneo-navicular) ligament: Intact. Lateral: Lateral malleolus: Normal. Retromalleolar groove: Normal. Tendons: Peroneus longus: Intact. Peroneus brevis: Intact. Peroneal retinaculum: Intact. Ligaments: Anterior inferior tibiofibular (syndesmosis): Intact. Posterior inferior tibiofibular (syndesmosis): Intact. Anterior talofibular ligament: Intact. Calcaneofibular ligament: Intact. Posterior talofibular ligament: Intact. Posterior: Posterior talus: Normal. Intermalleolar ligament: Intact. Achilles tendon: Intact. Significant edema is noted above the Achilles insertion involving the adjacent fat superior to the calcaneus extending laterally. This is nonspecific but may represents Achilles bursitis. Plantar fascia: Intact. Anterior: Tendons: Anterior tibial tendon: Intact. Extensor hallucis longus: Intact. Extensor digitorum longus: Intact. Tibiotalar joint: Intact. Subtalar joint: Intact. Bones (other than subarticular marrow): Normal. Muscles: Normal Tarsal tunnel: Normal. Sinus tarsi: Normal. MR/MR ankle LT wo con Impression: Significant edema is noted above the Achilles insertion involving the adjacent fat superior to the calcaneus extending laterally. This is nonspecific but may represents Achilles bursitis. The Achilles tendon is intact and normal in signal. There is a small tibiotalar joint effusion with a ganglion cyst projecting posteriorly. Fluid is noted along the posterior tibial tendon sheath suggesting tenosynovitis. Impression dictated by: Maurice Pereyra M.D. 12/29/2024 5:15 PM Dictation Location: [place] [address] Transcribed By: [facility] 12/29/241714 Dictated By: Maurice Pereyra II, MD 12/29/241705 Signed By: <Electronically signed by Maurice Pereyra II, MD in [place]> 12/29/241714 ASSESSMENT 1. Other specified disorders of synovium, right ankle and foot 2. Left Achilles tendinitis 3. Posterior tibial tendonitis of right leg 4. Contracture of left ankle 5. Contracture of right ankle PLAN Continue with ankle brace right ankle Recommended to apply ice to affected areas for 20 minutes, twice daily. Ice should not be applied directly to skin. Patient to continue with oral anti - inflammatories as needed for pain and recommended OTC medications such as tylenol or Ibuprofen Patient to continue with cam walker left leg Discussed possible flatfoot deformity correction in the future at tertiary care center to the rightankle and foot Discussed conservative and surgical treatment options for patient today including postoperative time frame and surgical procedure in detail. Patient may continue with conservative treatments including kdjh-ptp-yhahyyl anti- inflammatories and other treatments suggested today. Patient may want to be s cheduled for surgical intervention in the near future. Gregory Jose DPM documented in this encounter Plan of Treatment DateTypeDepartmentCare Team (Latest Contact Info)Wfrrfzkqcuk99/03/2025 3:20 PM ESTOffice Visit [facility] [address] [place] [address] Gregory Jose DPM [address] [address] documented as of this encounter Visit Diagnoses Diagnosis Other specified disorders of synovium, right ankle and foot- Primary Left Achilles tendinitis Posterior tibial tendonitis of right leg Contracture of left ankle Contracture of right ankle documented in this encounter Care Teams Team MemberRelationshipSpecialtyStart DateEnd Date Jack Collins, [address] [facility] [place] [address] PCP - GeneralInternal Medicine07/10/23documented as of this encounter
--- OUTSIDE RECORDS SUMMARY | 2025-01-26 16:40 | XMS_ITS | Encounter Summary ---
Author Organization [facility] Address [address] [place] [address] Care Team Providers Care Script Supervisor Name Role Phone Jack Collins Primary Care Provider [phone] Reason for Visit * ReasonCommentsCasting For Braces Or OrthoticsOrthotic scanConsent Or Instructionspreop Encounter Details DateTypeDepartmentCare Team (Latest Contact Info)Cmljsohrfus75/18/2025 4:40 PM ESTOffice Visit [facility] [address] [place] [phone] Gregory Jose DPM [address] [address] Left Achilles tendinitis (Primary Dx); Contracture of left ankle; Posterior tibial tendonitis of right leg; Contracture of right ankle; Achilles tendon tear, left, initial encounter Social History Tobacco UseTypesPacks/DayYears UsedDateSmoking Tobacco: NeverSmokeless [...] Assigned at BirthMale 04/29/2024 2:06 PM ESTLegal YhpDqac6705/23/2022 7:00 PM EDTGender IdentityMale 04/29/2024 2:06 PM ESTSexual HcsldtqrzecKpqovjiy72/19/2025 2:06 PM ESTdocumented as of this encounter Last Filed Vital Signs Vital SignReadingTime TakenCommentsBlood Pressure--Pulse--Temperature-- Respiratory Nrwf983403/28/2024 4:38 PM ESTOxygen Saturation--Inhaled Oxygen Concentration--Zyifkz98.7 kg (211 lb)01/26/2025 4:38 PM BYJAgjrou975 cm (6' 2 ) 01/26/2025 4:38 PM ESTBody Mass Index27.0901/26/2025 4:38 PM ESTdocumented in this encounter Progress Notes * Gregory Jose, MER - 01/26/2025 4:40 PM EST Patient: Black Black Tim : 1975 PCP: Jack Collins, DO SUBJECTIVE Pt presents today for follow up of capsulitis and synovitis to the right ankle Currently they rate their pain on a 1-10 scale a 5 States prior treatments of steroid injection and nsaids with Positive improvement in the past. States pain is aggrevated with WB. Pt has also been in CAM walker for left Achilles region Patient has right advanced flatfoot deformity and uses a [place] brace Pt also has left PT tendonitis [...] at this point in time have failed Pt is to be scheduled for a left percutaneous achilles tenotomy under US guidance with TENEX device. Allergies: Allergies Allergen Reactions Codeine Hives, Itching [...] Insecurity: No Food Insecurity (06/20/2022) Received from [facility] Hunger Screening Within the past 12 [...] tendon into retrocalcaneal bursa with negative palpable [place] MRI: PAST MR ankle left wo IV contrast Narrative: [facility] Main [place] [address] [place] [address] MRI Report Signed Patient: Black Dumont MR#: [id number] : 1975 Acct:[id number] Age/Sex: 49 / M ADM Date: 12/29/24 Loc: [facility] Room: Type: [facility] Attending Dr: Gregory Jose DPM Copies to: [...] Pereyra M.D. 12/29/2024 5:15 PM Dictation Location: [place] [address] Transcribed By: [facility] 12/29/241714 Dictated By: Maurice Pereyra II, MD 12/29/24 1706 Signed By: <Electronically signed by Maurice Pereyra II, MD in [place]> 12/29/24 1715 ASSESSMENT 1. Left Achilles tendinitis 2. Contracture of left ankle 3. Posterior tibial tendonitis of right leg 4. Contracture of right ankle 5. Achilles tendon tear, left, initial encounter PLAN Continue with ankle brace right ankle Recommended to apply ice to affected areas for 20 minutes, twice daily. Ice should not be applied directly to skin. Patient to continue with oral anti - inflammatories as needed for pain and recommended OTC medications such as tylenol or Ibuprofen Patient to continue with cam walker left leg Pt presents today for casting of a removable foot inserts/orthotics today that was accomplished with scanning of feet and sent to orthotics lab.(L3020 right and L3020 left foot). Pt to have signed ABN for device if needed. It was explained to the patient of a break in period for the devices. The patient is ambulatory maybenefit functionally for this device. It may be used for the following conditions as noted per EMR. Patient given prescription for pain medication to be taken postoperatively. Decision for surgery today and patient cleared from a podiatric/ medical standpoint for surgery and to proceed with surgery. Pt to have pre op H/P per PCP for medical clearance for surgery and will be reviewed along with labs prior to surgery. Pt scheduled for a left percutaneous achilles tenotomy with TENEX device under US guidance. Discussed with the patient the nature of condition and operative vs nonoperative care. The surgicalplans, risks, alternatives, benefits, post op complications and penitentiary expectations were discussed including but not limited to: infection,bone infection,wound dehiscence hardware failure and irritation,wound dehiscence,delay union/mal union/non union of bone. RSDS,neuroma,duty limitations,DVT/PE, [place],nerve damage, scar, loss of sensation, swelling. Pt understands the proposed sx in detail and has agreed with proposed surgery. No guarantees were given or implied. Pt willingly consents to procedure and to have surgical procedure. Pt also understands risks including COVID-19 current risk in a surgical setting. Pt is a low acceptable risk for outpatient surgery from a podiatric/medical standpoint with an ASA of a 2. Gregory Jose DPM, FACFAS H&P up to date and current (date) Date: January 26, 2025 Gregory Jose DPM documented in this encounter Plan of Treatment DateTypeDepartmentCare Team (Latest Contact Info)Eixruazzgvw93/03/2025 3:20 PM ESTOffice Visit [facility] [address] [place] [address] Gregory Jose DPM [address] [address] documented as of this encounter Visit Diagnoses Diagnosis Left Achilles tendinitis- Primary Contracture of left ankle Posterior tibial tendonitis of right leg Contracture of right ankle Achilles tendon tear, left, initial encounter documented in this encounter Care Teams Team MemberRelationshipSpecialtyStart DateEnd Date Jack Collins DO [address] [place] [phone] PCP - GeneralInternal Medicine07/10/23documented as of this encounter
--- OUTSIDE RECORDS SUMMARY | 2025-01-27 10:54 | XMS_ITS | Continuity of Care Document ---
Author Organization [facility] Address [address] [place] [address] Phone Care Team Providers Care Legal Referee Name Role Phone Jack Collins DO Primary Care Provider Jack Collins DO Attending Provider Gregory Jose DPM Attending Provider Mil Agarwal MD Attending Provider Care Teams Patient Care Team Team Status: Active Member Role/Relationship Status Dates Jack Collins DO Primary Care Provider Active Visit Care Team Team Status: Inactive Member Role/Relationship Status Dates Jack Collins DO Primary Care Provider Active Start: December 23, 2024 End: December 23bi Collins DOAttradha ProviderActiveStart: December 23, 2024 End: December 23, 2024 Visit Care Team Team Status: Inactive Member Role/Relationship Status Dates Jack Collins DO Primary Care Provider Active Start: December 29, 2024 End: December 29, 2024Quinn Morataya ProviderActiveStart: December 29, 2024 End: December 29, 2024 Visit Care Team Team Status: Inactive Member Role/Relationship Status Dates Jack Collins DO Primary Care Provider Active Start: January 06, 2025 End: January 06, 2025GeClaudia Whitley ProviderActive Start: January 06, 2025 End: January 06, 2025 Visit Care Team Team Status: Inactive Member Role/Relationship Status Dates Jack Collins DO Primary Care Provider Active Start: January 26, 2025 End: January 26, 2025SHERIDAN Moratayattradha ProviderActiveStart: January 26, 2025 End: January 26, 2025 Patient Care Team Team Status: Inactive Member Role/Relationship Status Dates Jack Collins DO Primary Care Provider Active Start: January 27, 2025 End: January 27bi Collins DOAttradha ProviderActiveStart: January 27, 2025 End: January 27, 2025 Chief Complaint and Reason for Visit Chief Complaint Admit Date Wellness December 23, 2024 8 :27am S86.012A December 29, 2024 1 :30pm r/s from 12/30January 06, 2025 8 :13am Z01.818 January 26, 2025 3:03pm surgical clearance ([facility] Dr. Jose) Naheed desouza 2024 3:04pm Reason for Visit Admit Date MARTHA (generalized anxiety disorder) Octob er 2024 8:27am DIANA (obstructive sleep apnea) December 232024 8:27am Primary hypertension December 23, 2024 8:27am Screening PSA (prostate specific antigen ) December 23, 2024 8:27am Thyroid nodule December 23, 2024 8 :27am Type 2 diabetes mellitus with hyperglyce richi December 23, 2024 8:27am Wellness examination December 23, 2024 8:27am Mixed hyperlipidemia January 06, 2025 8:13am Primary hypertension January 06, 2025 8:13am Mixed hyperlipidemia January 27, 2025 3:04pm DIANA (obstructive sleep apnea) January 092024 3:04pm Primary hypertension January 27, 2025 3:04pm Type 2 diabetes mellitus with hyperglyce [facility] January 27, 2025 3:04pm Preop exam for internal medicine Novembe r 2024 3:04pm Allergies, Adverse Reactions, Alerts Allergen Type Severity Reaction Last Updated Verified Status hydrocodone Allergy Unknown Rash January 27, 2025 3:08pm Y es Active Social History Smoking Status Status Start Date End Date Date of Observa tion Never smoked tobacco (finding) November 27, 2023 11:14am Observation Status Observation Response Date of Response Legal Sex [facility] ([facility]) [facility] Family History Relationship Condition Age at Onset Recorded Date/T nilo father Diabetes mellitus Unknown Malignant neoplasm of urinary bladderUnknownMyocardial infarctionUnknownmother Diabetes mellitusUnknownHypertensionUnknownDisorder of kidneyUnknownmaternal grandfatherDiabetes mellitusUnknownCerebrovascular accident (CVA)UnknownHeart diseaseUnknownmaternal grandmotherDementiaUnknownpaternal grandfatherMalignant neoplasmUnknownpaternal grandmotherMalignant neoplasmUnknownsisterObsessive- compulsive disorderUnknownGeneralized anxiety disorderUnknownsonGastroesophageal reflux diseaseUnknownIrritable bowel syndromeUnknownEosinophilic esophagitis Unknown Problems Active Problems Problem Diagnosis/Recorded Date Onset Date Status C omments Cervical spondylosis with radiculopathy May 28, 2023 2:11pm Unknown Active Gastroesophageal reflux disease with esophagitis without hemorrhageMarch 2023 2:11pmUnknownActiveChronic migraine with aura without status migrainosus, not intractableJuly 2024 5:33pmUnknownActiveOSA (obstructive sleep apnea) May 28, 2023 6:43amUnknownActiveGAD (generalized anxiety disorder)May 28, 2023 6:40amUnknownActiveScreening PSA (prostate specific antigen)August 21, 2024 7:56amUnknownActivePSA: 1.3 - 08/2024Type 2 diabetes mellitus with hyperglycemiaMarch 2023 2:11pmUnknownActiveThyroid noduleOctober 2023 1:46pmUnknownActiveUS: right 0.5cm, 0.3cm TR3 and left 0.6cm, 0.4mm, 0.7mm TR3 - 12/2023Wellness examinationOctober 2023 7:11amUnknownActiveMixed hyperlipidemiaSeptember 2023 5:15pmUnknownActiveDDD (degenerative disc disease), cervicalJuly 2024 5:33pmUnknownActivePrimary hypertensionMarch 2023 2:11pmUnknownActiveLHC: normal coronary anatomy - 11/2023.Recurrent major depressive disorder, in full remissionMarch 2023 2:11pmUnknownActive Chronic low back pain without sciaticaJuly 2024 5:33pmUnknownActive Irritable bowel syndrome with diarrheaMarch 2023 2:11pmUnknownActiveS/P cervical spinal fusionFebruary 2024 12:57dy8004QlsuogCbjjnfeenuhNsjx 2024 2:06pmUnknownActiveLumbar spondylosisMarch 2023 6:41amUnknownActive Inactive/Resolved Problems Problem Diagnosis/Recorded Date Onset Date Status C omments Dysphagia March 27, 2019 10:49am Unknown Resolved Problem List clean-up per request of Phys. EHR Cmte Carpal tunnel syndrome, bilateral May 28, 2023 2:11pm Unknown Resolved Medications Medication Status Dose Units Route Directions Qty Days Refills S tart Date Stop Date End Date Reason(s) Instructions Adherence Dulaglutide (Trulicity) 0.75 mg/0.5 mL pen injector Discontinued 0.75 MG SUBCUT every week 2 28 0 June 11, 2023 11:00pm July 09, 2023 5:49amBenazepril-Hydrochlorothiazide 20-12.5 mg tablet Discontinued0.ROUTE.PSKLGQC091Mwniy 2023 6:46pmMay 2023 2:21pmTAKE 1 TABLET BY MOUTH DAILYRosuvastatin 20 mg tabletDiscontinued0.ROUTE.CLVFHAL134 July 03, 2023 1:37pmApril 2024 11:25amTAKE 1 TABLET BY MOUTH EVERY DAY IN THE EVENINGDulaglutide 1.5 mg/0.5 mL pen injectorDiscontinued0.75MGSUBCUT every jmbh5819Ticxy 2023 5:49amMay 2023 2:23pmEscitalopram Oxalate 20 mg tabletDiscontinued0.ROUTE.XRYCLGP737CopJuly 31, 2023 1:56pmNovember 2023 6:57amTAKE 1 TABLET BY MOUTH EVERYDAY AT BEDTIMEBaclofen 20 mg tablet Discontinued0.ROUTE.ESSNEJT963Bbp2023 1:56pmMay 2024 6:42amTAKE 1 TABLET BY MOUTH EVERYDAY AT BEDTIMEDulaglutide 3 mg/0.5 mL pen injector Discontinued1.5MGSUBCUTevery 2023 12:19pmJune 2023 5:08pmDulaglutide 3 mg/0.5 mL pen pxyzjihlYkxwhfxgdgaa1OPCRYNVQsozme August 20, 2023 5:07pmJun2023 9:36amDulaglutide 1.5 mg/0.5 mL pen fzjipkhyQpghngkuarrn1ELXGJMPFclewa 2023 9:36amJune 2023 10:25amDulaglutide 1.5 mg/0.5 mL pen injectorDiscontinued1.5MGSUBCUTevery 2023 10:25amJune 2023 9:16amDulaglutide 1.5 mg/0.5 mL pen injectorDiscontinued1.5MGSUBCUTevery 2023 9:15amAugust 2023 12:31pmBenazepril-Hydrochlorothiazide 20-25 mg ntyrkoMshausrtwzva9GNS EFVdswf95424Rahb 2023 3:12pmSeptember 2023 8:12amBlood-Glucose Sensor (Dexcom G7 Sensor) deviceDiscontinued0.Wyxnt87Svwp 2023 11:00pmJuly 2023 11:03amType 2 diabetes mellitus with hyperglycemia Type 2 diabetes mellitus with hyperglycemia terminal 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 operator (current) use of insulinChange sensor every 10 daysBlood- Glucose,Hospice Fellow,Cont (Dexcom G7 Hospice Fellow) miscDiscontinued0.Rkiwa43Rrud 2023 11:00pmJuly 2023 11:03amAs directedBlood-Glucose Sensor (Freestyle Maicol 3 Sensor) deviceDiscontinued0.Ftkgx46Jkct 2023 11:00pmSeptember 2023 4:52pmDiabetes mellitus with hyperglycemia Type 2 diabetes mellitus with hyperglycemiaChange sensor every 14 daysBlood- Glucose,Hospice Fellow,Cont (Freestyle Maicol 3 [place]) miscActive0.Aimdu19Jllo 2023 11:00pmDiabetes mellitus with hyperglycemia Type 2 diabetes mellitus with hyperglycemiaAs directedAlprazolam 0.5 mg tablet Discontinued0.5MGPOEvery 8 hours as needed for Ksfckad9434Nnri 2023 2:53pm November 04, 2023 7:34pmGeneralized anxiety disorder Generalized anxiety disorderInsulin Glargine-Yfgn (Semglee(Insulin Glarg- Yfgn)Pen) 100 unit/mL (3 mL) insulin phtJycacfyrfjhv59EQQGYRGAPWLrcju16010Raeabn 2023 7:46amAugust 2023 7:56amInsulin Glargine (Lantus Solostar U-100 Insulin) 100 unit/mL (3 mL) insulin krvBtwlifpcjuck98NXVDGFGUDGMacyv junfgvh4869 3July 2023 11:00pmSeptember 2023 12:14pmDulaglutide (Trulicity) 1.5 mg/0.5 mL pen injectorDiscontinued1.5MGSUBCUTevery hebj5750Qzbvvm 2023 12:30pmAugust 2023 9:10amDulaglutide 3 mg/0.5 mL pen injectorDiscontinued3 MGSUBCUTevery jnqf2185Teabnx 2023 9:09amOctober 2023 2:04pm Alprazolam 0.5 mg tabletDiscontinued0.5MGPOEvery 8 hours as needed for Cltljmw97 300August 2023 7:33pmOctober 2023 1:55pmGeneralized anxiety disorder Generalized anxiety disorderBlood-Glucose Sensor (Freestyle Maicol 3 Plus Sensor) deviceDiscontinued0.ROUTE.VSXUQZEGV983Alhisgxjx 2023 11:00pmMarch 2024 7:45amType 2 diabetes mellitus with hyperglycemia Type 2 diabetes mellitus with hyperglycemia terminal 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 operator (current) use of insulinAs directedDulaglutide 4.5 mg/0.5 mL pen injectorDiscontinued4.5MGSUBCUTevery jfvk9077Uddlcgh 2023 2:55pmOctober 2024 6:06pmMetoprolol Succinate 25 mg tablet extended release 24 hr Fqxhngtxswfn51HSYQErion at albybta84341Ymvasbh 2023 11:40amOctober 2023 2:15pmIsosorbide Mononitrate 30 mg tablet extended release 24 hr Discontinued0.ROUTE.ZBZUMAK914Qmweuna 2023 11:41amOctober 2023 2:15pmTAKE 1 TABLET BY MOUTH EVERY MORNINGEscitalopram Oxalate 20 mg tablet Discontinued0.ROUTE.WGIKOFH239Yildbzyq 2023 6:56amMay 2024 6:42am TAKE 1 TABLET BY MOUTH EVERYDAY AT BEDTIMESildenafil 100 mg tabletDiscontinued0 .ROUTE.CDTGNVX67Xjsdonlb 2023 8:43amMay 2024 6:41amTAKE 1 TABLET BY MOUTH NEEDED 30 MINUTES TO 4 HOURS BEFORE SEXUAL ACTIVITYAlprazolam 0.5 mg tabletDiscontinued0.5MGPOThree times daily as needed for waydiye87371Qhixiioo 2023 8:30amMay 2024 6:44amGeneralized anxiety disorder Generalized anxiety disorderBlood-Glucose Sensor (Freestyle Maicol 3 Plus Sensor) deviceDiscontinued0.ROUTE.NLTOPTU994Owxno 2024 7:44amOctober 2024 8:53amType 2 diabetes mellitus with hyperglycemia Type 2 diabetes mellitus with hyperglycemia half-way (current) use of insulinCHANGE EVERY 15 DAYS DIRECTEDBenazepril- Hydrochlorothiazide 20-25 mg tabletActive0.ROUTE.ERZTRDW917Fskir 2024 9:09amTAKE 1 TABLET BY MOUTH EVERY DAY FOR 90 DAYSComplies with drug therapy Rosuvastatin 20 mg tabletActive0.ROUTE.KKSFKTF247Bpfqy 2024 11:24amTAKE 1 TABLET BY MOUTH EVERY DAY IN THE EVENINGComplies with drug therapyAlprazolam 0.5 mg tabletActive0.5MGPOThree times daily as needed for kibkrhr94009Ovs 2024 6:43amGeneralized anxiety disorder Generalized anxiety disorderComplies with drug therapyBaclofen 20 mg tablet Active0.ROUTE.MEQPRUC930NtrJuly 28, 2024 6:42amTAKE 1 TABLET BY MOUTH EVERYDAY AT BEDTIMEComplies with drug therapyEscitalopram Oxalate 20 mg tabletDiscontinued0 .ROUTE.RQGZBFC142CxzJuly 28, 2024 6:42amNovember 2024 7:02amTAKE 1 TABLET BY MOUTH EVERYDAY AT BEDTIMESildenafil 100 mg tabletDiscontinued0.ROUTE.ZJYZKQI73 August 02, 2024 6:41amNovember 2024 7:26amTAKE 1 TABLET BY MOUTH NEEDED 30 MINUTES TO 4 HOURS BEFORE SEXUAL ACTIVITYInsulin Glargine (Lantus Solostar U- 100 Insulin) 100 unit/mL (3 mL) insulin xjuOuwjlm07PXFREGKWPFRuazu09786Rwfepw 2024 8:07amComplies with drug therapyBlood-Glucose Sensor (Freestyle Maicol 3 Plus Sensor) deviceActive0.ROUTE.VRNLKYT068Mlxlygf 2024 8:53amType 2 diabetes mellitus with hyperglycemia Type 2 diabetes mellitus with hyperglycemia half-way (current) use of insulinCHANGE EVERY 15 DAYS DIRECTEDDulaglutide 4.5 mg/0.5 mL pen injectorActive4.5MGSUBCUTevery xxqa9753Wdlcvfs 2024 6:06pmComplies with drug therapyEscitalopram Oxalate 20 mg eexlkoAoqauu68GYSV Fzlwp51886Falsxwqz 2024 7:01amComplies with drug therapySildenafil 100 mg skvvwgHrhpro267XBZCQiyns as needed for sexual phhsffww30854Ypikpord 2024 7:25amComplies with drug therapyAmitriptyline 25 mg xfmcjzXsyfrc31NIGRHajwu at czfgxxn43392Gzioztmr 2024 7:35amInsomnia Insomnia, unspecifiedComplies with drug therapyBaclofen 20 mg tabletDiscontinued 20MGPOBedtimeJanuary 2019 12:00amMa2021 10:38amPropranolol 80 mg capsule,extended release 24 yhXkwvjwbnsvjw35BIJBVjulcKpgaknr 2019 12:00am January 30, 2021 11:16amBenazepril 10 mg jxegptLbqwkoxvceqg05CJRVAnqaqZdtbhtb 2019 12:00amMarch 2023 2:38glShtcbwpsc-Xgorei-Bydbqufd-Scop 16.2- 0.1037 -0.0194 mg omujkvTgwuwypfvwfr0ARGCIFvtjp times dailyJanuary 2019 12:00amNovember 2020 11:15amCholestyramine-Aspartame 4 gram powder Upqceeacmhtm8WKSPAgqmbEgnaylq 2019 12:00amNovember 2020 11:15am Diphenoxylate-Atropine 2.5-0.025 mg zqviidFcmqmkzhgkgv8FQZQDWgjim times daily January 30, 2021 12:00amMarch 2023 2:19pmAlprazolam 0.5 mg tablet Discontinued0.5MGPODaily at bedtime as needed for AnxietyNovember 2020 12:00amMarch 2023 2:20pmEtodolac 400 mg jadirwYbrywxknjhjq231KKLHYfyhw dailyNovember 2020 12:00amMay 2021 10:39amAtenolol 50 mg tablet Ghuoeqaepeqm55TVSIOpktaTnkoqsmb 2020 12:00amMay 2021 10:38am Loratadine 10 mg FrovrtEyavaakvwmpe10UWVRMisfpLgkkonjx 2020 12:00amMay 2021 10:39amEscitalopram Oxalate 20 mg kcydnkIquqomxepbns07RXGXYblcs at bedtimeNovember 2020 12:00amMarch 2023 2:19pmCholestyramine- Aspartame (Prevalite) 4 gram powder in mcmanvSbatdptktzok2UVVKOVJvyfnZtzodxju 2020 12:00amMay 2021 10:38amRosuvastatin 20 mg qcxrovCmhedxqkiqtb91 MGPODaily at bedtimeNovember 2020 12:00amMarch 2023 2:20pmAlprazolam 0.5 mg tabletDiscontinued0.5MGPOEvery 8 hours as needed for AnxietyMarch 2023 2:13pmJuly 2023 2:55pmCetirizine (Zyrtec) 10 mg AwlmhbRqodqqgpfxvc77 MGPOEvery morningMay 2021 11:00pmOctober 2023 1:34pmBenazepril- Hydrochlorothiazide 20-25 mg liuenhAsyuhsiwzfxc5HXLLJGsmux morningSeptember 2023 11:00pmMarch 2024 9:09amMetoprolol Succinate 25 mg tablet extended release 24 axXvhpgikjcyvf35DBWTUcmmr at bedtimeSeptember 2023 11:00pmOctober 2023 11:41amAmitriptyline 25 mg qtrldgMurvuknxxvbp62XZMP Daily at [facility]timePro[facility] 2023 11:00pmNovember 2024 7:37amBaclofen 20 mg seqxhfNafpxxsfdsgq53UVSRXshee at bedtimeProtestant Hospital 2023 11:00pmMay 2023 1:56pmBenazepril 10 mg jfshkpTarxxqkqqtol95MNSBKhjhcYmape 2023 11:00pm May 29, 2023 3:38pmCefuroxime Axetil 250 mg uklguiBnlsabphycfs118ITAVAgjbh 12 hoursPro[facility] 2023 11:00pm[facility] 2023 3:12pmGalcanezumab-Gnlm 120 mg/mL cedglxrMthlwu852MLMWSVWDrbccz monthProtestant Hospital 2023 11:00pmmigraine preventionComplies with drug therapyEscitalopram Oxalate 20 mg tablet Dttlpfdbgpgc19RFGWVuowg at bedtimeProtestant Hospital 2023 11:00pmMay 2023 1:56pm Insulin Glargine (Lantus Solostar U-100 Insulin) 100 unit/mL (3 mL) insulin pen Gphmvzyfbvij35HLZASNMSDJLdujw at bedtimeProtestant Hospital 2023 11:00pmAugust 2023 7:47amDiphenoxylate-Atropine 2.5-0.025 mg vlqhkcZvfzhcqijkje3AIITZYpgad times dailyProtestant Hospital 2023 11:00pmJune 2023 3:09pmRizatriptan (Maxalt) 10 mg yrdklqAahnhtiorspz36OZGMEcnbnJofhj 2023 11:00pmSeptember 2023 12:14pm Omeprazole 40 mg capsule,delayed release(DR/EC)Oshjbn00PDKKBahlq morningMarch 2023 11:00pmgerdComplies with drug therapySemaglutide (Ozempic) 0.25 mg or 0.5 mg (2 mg/3 mL) pen injectorDiscontinued0.25MGSUBCUTevery weekMarch 2023 11:00pmMarch 2023 3:39pmRosuvastatin 20 mg nyobftXxoopkjexlpg12HNYX Every eveningMarch 2023 11:00pmApril 2023 1:37pmBenazepril- Hydrochlorothiazide 20-12.5 mg eyxtbdCmnoeaqldhdo1QKIYRTubob84738Ejonp 2023 11:00pmApril 2023 6:47pmSemaglutide (Ozempic) 0.25 mg or 0.5 mg (2 mg/3 mL) pen injectorDiscontinued0.25MGSUBCUTevery makq4321Tvxko 2023 3:38pmApril 2023 3:24pmRizatriptan (Maxalt) 10 mg qycxixFwjcbljlwkaf07ZLRI Daily as needed for migraine headacheSeptember 2023 12:12pmSeptember 2023 10:12amBenazepril-Hydrochlorothiazide 20-25 mg tydpvjVpmrgzxdvmlb5SRIWK Gfauw60764Wyjvi 2023 11:00pmJuly 2023 3:12pmDulaglutide 1.5 mg/0.5 mL pen injectorDiscontinued1.5MGSUBCUTevery agcm3620Lpm 2023 2:23pmJune 2023 12:19pmSildenafil 100 mg fcdlyjVtqdsfvxwsto917FTTLJfich as needed for sexual cnczvcoe4785Fzjzl 2023 11:00pmNovember 2023 8:43amadminister 30 minutes to 4 hours before activityDoxycycline Hyclate 100 mg capsule Ukzpibtesyaf965TQEPTrjyx dgykr585Cjnarom 2023 11:00pmJune 2024 7:30amAzithromycin 250 mg klbugdNlqpyrkudonz3DRjuigb248Pymg 2024 11:00pm December 23, 2024 7:32amPharyngitis Acute pharyngitis, unspecifiedTake 2 on day 1 and then take 1 for the next 4 days (days 2-5)Triamcinolone Acetonide 0.5 % isyncPloqojhoaypl8IYUGQTIOHWVHZ Twice ugbxw63130Lfml 2024 11:00pmOctober 2024 7:26amPrednisone 20 mg efstdoHjzhztbfqlhi14CHLRBj Lwkjeuru6378Bbkm 2024 11:00pmOctober 2024 7:36am1 tab tid w/ food x 2 days, then bid w/ food x 3 days, then qd w/ food x 4 daysPrednisone 20 mg agfpakEnmpbedncosj29UFVEXr Lzezglqe339Ljwi 2023 11:00pmSept2023 12:13pm1 tab tid w/ food x 3 days, then bid w/ food x 3 days, then qd w/ food x 3 daysInsulin Glargine (Lantus Solostar U-100 Insulin) 100 unit/mL (3 mL) insulin rcxMpkihvnplarx70XLEBKWSGXLAntbx dailySeptember 2023 12:10pmAugust 2024 8:09amInsulin Lispro (Humalog Kwikpen Insulin) 100 unit/mL insulin hkqGcopno7avkjmgx scale doseSUBCUTUse as DirectedSept2023 11:00pmComplies with drug therapyIsosorbide Mononitrate 30 mg tablet extended release 24 vzBmmchyjutbdj54REQNDbday mvecmkw32213Fvmodixpg 3rd, 2024 11:00pmOctober 2023 11:41amMetoprolol Succinate 25 mg tablet extended release 24 ybIpkdjxlkgvev19XEMDAwudn37510Cpatqcbkm 3rd, 2024 11:00pmSept2023 8:12amDocusate Sodium (Colace) 100 mg vynjlwcXwqztnuldtvi954AJBDSxruv dailyOctober 2023 11:00pmOctober 2024 7:35amUbrogepant (Ubrelvy) 100 mg oopzjcSiqftq435CSJNLycs as neededOctober , 2024 11:00pmComplies with drug therapyAlprazolam 0.5 mg tabletDiscontinued0.5MGPOEvery 8 hours as needed for Mtgywqb77234Fhgbfhg 14th, 2024 1:54pmDecember 2023 8:32amGeneralized anxiety disorder Generalized anxiety disorderDulaglutide 4.5 mg/0.5 mL pen injectorDiscontinued 4.5MGSUBCUTevery rkhw5686VzcsbipDecember 23, 2023 2:02pmOct2023 2:55pm Azithromycin 250 mg saiqhsIwaubwzesput1ZQtvznt139Tacjkvz 15th, 2025 7:31am December 23, 2024 7:32amPharyngitis Acute pharyngitis, unspecifiedTake 2 on day 1 and then take 1 for the next 4 days (days 2-5)Bupropion Hcl 200 mg tablet sustained-release 12 plJwuors487ATSW September 28, 2024 11:00pmComplies with drug therapy Immunizations Immunization Event Date Not Given Reason Dose Number Production 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 Lot Number Reason(s) Given Vaccine Information Statement (VIS) Detail Administration Location COVID-19 mRNA-1273 (Moderna) March 24, 2020 COVID-19 mRNA, Comirnaty (CausePlay)March 24OVID19 mRNA, Comirnaty (CausePlay)April 13OVID19 mRNA, Comirnaty (CausePlay)April 14, 2020 COVID-19 mRNA, Comirnaty (CausePlay)February 11OVID-19 (Tribe) 12Y and olderSeptember 2022Influenza, seasonal, injectable, [id number] [facility]In[facility], [facility], injectable, pf December 23, 2024UT8779NAFPG [facility]in[facility], unspecified formulationNovember 2020Quadrivalent InfluenzaSeptember 2022 Procedures Procedure Date Performed Status MR ankle LT wo con December 29, 2024 12:32pm co mpleted Relevant Diagnostic Tests and/or Laboratory Data Laboratory Results Test Collection Date/Time Result Date/Time Result Interpretation Reference Range Result Comment Performing Site Corrected White Blood Count January 26, 2025 3:35pm January 26, 2025 5:04pm 6.7 10*3/uL 4[facility]1-10.5[facility] [id number] [address] [facility] [address]Crniiyaisnp WBC CountJanuary 26, 2025 3:35pmJanuary 26, 2025 5:04pm6.7 10*3/uL4.1-10.5F[facility] [id number] [address] [facility] [address]Rnz Blood CountJanuary 26, 2025 3:35pmJanuary 26, 2025 5:04pm4.68 10*6/uL3.90-5.60[facility] [id number] [address] [facility] [address]AqcxolgyzpVmiwhtcj 18th, 2025 3:35pmJanuary 26, 2025 5:04pm 13.9 g/dL13.0-17.0[facility] [id number] [address] [facility] [address]PnunqwuvkjRfuuytsu 18th, 2025 3:35pmJanuary 26, 2025 5:04pm 40.6 %38.8-50.0[facility] [id number] [address] [facility] [address]Afys Corpuscular VolumeJanuary 26, 2025 3:35pmJanuary 26, 2025 5:04pm86.6 fL83.5-101[facility] [id number] [address] [facility] [address]Zlkn Corpuscular HemoglobinJanuary 26, 2025 3:35pmJanuary 26, 2025 5:04pm29.7 pg27.5-35.2FProv[facility] [id number] [address] [facility] [address]Sldo Corpuscular Hemoglobin ConcentNov2024 3:35pm January 26, 2025 5:04pm34.3 g/dL32.5-35.6FProv[facility] [id number] [address] [facility] [address]Lyo Cell Distribution WidthJanuary 26, 2025 3:35pmJanuary 26, 2025 5:04pm13.7 %12.0-14.8[facility] [id number] [address] [facility] [address]Ihowviyv CountNov2024 3:35pmNov2024 5:70er892 10*3/mV456-559LlsuzugdsMercy Health Allen Hospital Ctr [id number] [address] [facility] [address]Nuoy Platelet VolumeNov2024 3:35pmNov2024 5:04pm8.8 fL6.6-10.1F[facility] [id number] [address] [facility] [address]Tcyozzyftzb (%) (Auto)January 26, 2025 3:35pmNov2024 5:04pm54.3 %.[facility] [id number] [address] [facility] [address]Actalizqtlr (%) (Auto)January 26, 2025 3:35pmNov2024 5:04pm33.2 %.[facility] [id number] [address] [facility] [address]Xdycqiqoi (%) (Auto)January 26, 2025 3:35pmJanuary 26, 2025 5:04pm7.6 %.[facility] [id number] [address] [facility] [address]Greyfgfjvhx (%) (Auto)January 26, 2025 3:35pmNov2024 5:04pm4.4 %.[facility] [id number] [address] [facility] [address]Wmcsodxhu (%) (Auto)January 26, 2025 3:35pmJanuary 26, 2025 5:04pm0.5 %.[facility] [id number] [address] [facility] [address]Haviruqzr RBC Relative Count (auto)January 26, 2025 3:35pm January 26, 2025 5:04pm0.1 /100{WBC}0-0.5F[facility] [id number] [address] [facility] [address]Idybhquogrq # (Auto)January 26, 2025 3:35pmNov2024 5:04pm3.7 10*3/uL1.8-7.7F[facility] [id number] [address] [place] [id number] # (Auto)January 26, 2025 3:35pmNov2024 5:04pm2.2 10*3/uL1.00-4.8[facility] [id number] [address] [facility] [address]Auanqjouo # (Auto)January 26, 2025 3:35pmNov2024 5:04pm0.5 10*3/uL0.0-0.8[facility] [id number] [address] [facility] [address]Jbeeokizstf # (Auto)January 26, 2025 3:35pmNov2024 5:04pm0.3 10*3/uL0.0-0.45[facility] [id number] [address] [place] [id number] # (Auto)January 26, 2025 3:35pmNov2024 5:04pm0.0 10*3/uL0.0-0.2F[facility] [id number] [address] [facility] [address]Ecmtebv LevelNov2024 3:35pmJanuary 26, 2025 5:42ot601 mg/dLAbove high ipxmho74-781NRD recommended reference rangeRandom Glucose Reference Range is dependent on time and content of last meal. Glucose of more than 200 mg/dL in a nonstressed, ambulatory subject supports the diagnosisof Diabetes Mellitus.[facility] [id number] [address] [facility] [address]Xejza Urea NitrogenJanuary 26, 2025 3:35pmJanuary 26, 2025 5:21pm14 mg/dL7-25[facility] [id number] [address] [facility] [address]RyadwmawezKfsyifga 18th, 2025 3:35pmJanuary 26, 2025 5:21pm 0.82 mg/dL0.70-1.30[facility] [id number] [address] [facility] [address]Iqjucdwdz GFR (CKD-EPI)January 26, 2025 3:35pmJanuary 26, 2025 5:21pm> 60.0 mL/MinMercy Health [facility] Hospital Ctr [id number] [address] [facility] [address]Cnchek LevelNov2024 3:35pmJanuary 26, 2025 5:84cn617 mmol/E648-480LcmsgfcpvMercy Health Allen Hospital Ctr [id number] [address] [facility] [address]Msdyxclgf LevelNov2024 3:35pmJanuary 26, 2025 5:21pm3.8 mmol/L3.5-5.1FProv[facility] [id number] [address] [facility] [address]Odfrbsiq LevelNov2024 3:35pmJanuary 26, 2025 5:32ng679 mmol/G54-285JsqlolwkfMercy [facility] [id number] [address] [facility] [address]Ayidyb Dioxide LevelNov2024 3:35pmJanuary 26, 2025 5:21pm31.7 mmol/LAbove high keircr46.0-31.0[facility] [id number] [address] [facility] [address]Ngajn GapNov2024 3:35pmJanuary 26, 2025 5:21pm 10.1 mEq/L6.0-15.0[facility] [id number] [address] [facility] [address]Kosehmc LevelNov2024 3:35pmNovember 2024 5:21pm9.0 mg/dL8.6-10.[facility] [id number] [address] [place] [id number] Creatinine Clearance (ChemNovember 2024 3:35pm January 26, 2025 5:21pmN/[facility] [id number] [address] [facility] [address] Diagnostic Imaging Reports Author Maurice Pereyra [facility] CenterAuthoredOctsaint elizabeth [facility] 21st, 2025 5:06pmReportDictated Date/TimeDictated ByStatusRadiology ReportOctober 2024 5:06pmMaurice Pereyra II [facility] [address] [place], [place] [id number] MRI Report Signed Patient: Black Dumont MR#: [id number] : 1975 Acct:[id number] Age/Sex: 49 / M ADM Date: 5 [facility] Type[facility] CLI Attending Dr: Gregory Jose DPM Copies to: Gregory Jose DPM~ Ordering Provider: Gregory Jose DPM Date of [...] tarsi: Normal. MR/MR ankle LT wo con IMPRESSION: Significant edema is noted above the Achilles [...] Pereyra M.D. 12/29/2024 5:15 PM Dictation Location: [place] [address] Transcribed By: [facility] 12/29/241714 Dictated By: Maurice Pereyra II, MD 12/29/241705 Signed By: <Electronically signed by Maurice Pereyra II, MD in [place]> 12/29/241714 Vital Signs Vital Reading Result Reference Range Collection Date/Time Height 74 [in_i] December 23, 2024 7:42etZyixzk20.54 kgOctsaint elizabeth edgewood 2024 7:36amHeart Rate90 /dez34-690Ndshsch 2024 7:36amRespiratory rate12 /xum50-19Qkggbbc 2024 7:36amBP Czolndcl861 mm[Hg]100-140October 2024 7:36amBP Bjagkepec91 mm[Hg]60-100October 2024 7:36amBMI (Body Mass Index)27.8 kg/u0Dihzgux 2024 7:91euWynrwz43 [in_i]January 06, 2025 7:28xxGafkzr01.88 kgOctober 2024 7:32amHeart Rate78 /wjx30-350Lmzgzpi 2024 7:32amRespiratory rate18 /quc88-64Dgudydi 2024 7:32amOxygen saturation by Pulse emjzgyfa82 % 95-100[facility] 2024 7:32amBP Hqijkdbe704 mm[Hg]100-140[facility] 2024 7:32amBP Zmmzqaghb24 mm[Hg]60-100[facility] 2024 7:32amBMI (Body Mass Index) 28.0 kg/w2Kugfwbs 2024 7:81pmEpjtmi91 [in_i]January 27, 2025 3:11pm Qfpmtz29.52 [facility] 2024 3:11pmHeart Rate87 /lbv04-410Ggrpgkcr 19th, 2025 3:11pmRespiratory rate12 /lyn28-62Jwuekaar 2024 3:11pmBP Cpxqnwme471 mm[Hg]100-140[facility]2024 3:11pmBP Ykbtbovpw52 mm[Hg]60-100[facility] 2024 3:11pmBMI (Body Mass Index)27.6 kg/y7Sinirtca 2024 3:11pm Advance Directives Advance Directive Response Recorded Date/ Time Advance Directives No March 23, 2019 12:15pm Insurance Providers Guarantor Black Dumont Address [address] [place] [address]Uuhzplo Info.Home Phone: Payer Group Member ID Coverage Type Subscriber Relationship to Subscriber Effective Date Expiration Date [facility] Id: [id number] E [employer] Id: [id number] [address] [place] [address] Home Phone: Email: [email or web address] Encounter Location(s) Arrival/Admit Date Discharge/Departure Date Discharge/Departure Disposition Provider(s) Departed Physician/ Provider Office Visit -[facility] December 23, 2024 8:27am December 23, 2024 9:09am Discharged to home care or self care (routine discharge) Jack Collins DO Departed Clinical -MRI [address] Closed December 29, 2024 1:30pm December 29, 2024 1:31pm Discharged to home care or self care (routine discharge) Gregory Jose DPM Departed Physician/ Provider Office Visit -[facility] January 06, 2025 8:13am January 06, 2025 9:19am Discharged to home care or self care (routine discharge) Mil Agarwal MD Departed Clinical -Electrodiag nostics January 26, 2025 3:03pm January 26, 2025 3:04pm Discharged to home care or self care (routine discharge) Gregory Jose DPM Departed Physician/ Provider Office Visit -[facility] January 27, 2025 3:04pm January 27, 2025 3:53pm Discharged to home care or self care (routine discharge) Jack Collins , DO Recent Diagnosis Onset Date Admit Date MARTHA (generalized anxiety disorder) Unknown December 23, 2024 8:27am DIANA (obstructive sleep apnea) Unknown Oc tober 2024 8:27am Primary hypertension Unknown December 8:27am Screening PSA (prostate specific antigen) Unknow n December 23, 2024 8:27am Thyroid nodule Unknown December 23 8:27am Type 2 diabetes mellitus with hyperglycemia Unkn own December 23, 2024 8:27am Wellness examination Unknown December 8:27am Mixed hyperlipidemia Unknown December 8:13am Primary hypertension Unknown December 8:13am Mixed hyperlipidemia Unknown January 272024 3:04pm DIANA (obstructive sleep apnea) Unknown No vember 2024 3:04pm Primary hypertension Unknown January 272024 3:04pm Type 2 diabetes mellitus with hyperglycemia Unkn own January 27, 2025 3:04pm Preop exam for internal medicine Unknown January 27, 2025 3:04pm Assessments Diagnosis Onset Date Resolution Status Admit Date MARTHA (generalized anxiety disorder) acuteOctober 2024 8:27amOSA (obstructive sleep apnea)acuteOctober 2024 8:27amPrimary hypertensionacuteOct2024 8:27amScreening PSA (prostate specific antigen)acuteOctober 2024 8:27amThyroid noduleacute December 23, 2024 8:27amType 2 diabetes mellitus with hyperglycemiaacuteOctober 2024 8:27amWellness examinationacuteOct2024 8:27amMixed hyperlipidemiaacuteOctober 2024 8:13amPrimary hypertensionacuteOctober 2024 8:13amMixed hyperlipidemiaacuteNovember 2024 3:04pmOSA (obstructive sleep apnea)acuteJanuary 27, 2025 3:04pmPrimary hypertension acuteJanuary 27, 2025 3:04pmType 2 diabetes mellitus with hyperglycemiaacute January 27, 2025 3:04pmPreop exam for internal medicinenoneactiveJanuary 27, 2025 3:04pm Plan of Treatment Author Mil Agarwal [facility] 2024 8:19am # Palpitations - Pt believes they are due to anxiety. Will r/o arrythmia. # Hypertension ??? well-controlled # Mixed HLD - Goal LDL < 100 mg/dL. # Other: Type 2 diabetes, obstructive sleep apnea, HLD. Never smoker. Exercise stress MPI performed at [facility] 08/08/2023 ??? exercised for 7 minutes, maximum heart rate 155 bpm which is 90% of maximum. 10.1 METS. Normal blood pressure response. No chest pain or arrhythmia, occasional PVCs. At peak exercise there is approximately 1 mm horizontal to downsloping ST depressions. Ochoa treadmill score is -3 placing him at a moderate risk category. The MPI portion showed normal perfusion, normal TID, LVEF 61%. EKG 12/02 ??? normal sinus rhythm, LVH, inferior T wave abnormality consider ischemia. LHC 11/27/2023 ??? no epicardial coronary artery disease, mild microvascular dysfunction. Normal LV function, EF greater than 55%, and normal LVEDP. Likely false positive nuclear stress test. Echo 12/26/2023 ??? EF 60-65%, normal LV size and thickness, normal wall motion, normal diastolic function, normal echo. -Get 1 week Zio patch monitor to evaluate for any arrhythmia underlying these daily;palpitations. If no arrhythmia, then agree with pt that the palpitations are due to anxiety. -Continue rosuvastatin. No recent lipid panel. Will order one. -Continue bisoprolol-hydrochlorothiazide for blood pressure control which appears to be at an effective dose. No refills needed. -Follow-up 2 months to review Zio results Author [facility]red[facility] 7:31amI have instructed this patient to follow a comprehensive diabetic treatment plan. I have also instructed them to check their feet daily for calluses and nonhealing ulcers. I have instructed them to have a yearly dilated eye examination. I have reviewed their treatment goals: SBP less than 130, LDL less than 100, FBS less than 140, A1C less than 7%. I have instructed them to maintain a home BS log and bring the results to each of their office visits for review. I have explained the importance of routine monitoring of their A1C, Microalbumin and Lipids. I have explained the benefits of well controlled diabetes in preventing micro and macrovascular complications. POC A1C Continue Trulicity, Lantus and Insulin sliding scale without interruption -limit Lantus to 0.5u/kg I have instructed this patient to consume a healthy, low-fat, low-salt diet. I have also encouraged them to continue exercise with weight loss to achieve/maintain a BMI < 30. I have instructed this patient on the correct procedure for obtaining home BP measurements:? - rest for 5 minutes w/o talking. - positioned w/ feet on floor and arms supported. - average best 2/3 readings w/ goal < 135/85. - update office w/ home readings in 2 weeks. Continue Benazepril/HCTZ without interruption Discussed management of thyroid nodules US: right 0.5cm, 0.3cm TR3 and left 0.6cm, 0.4mm, 0.7mm TR3 - 12/2023 Small, benign nodule, requires US surveillance over the next 5 years Instructed on a healthy diet and exercise routine. Instructed to continue medical treatment w/o interruption. Instructed to avoid abrupt d/c of medication due to w/d symptoms. He feels he has ADD but likely related to anxiety and poor organizational skills. Requesting treatment for ADD but I suggested more specialized testing prior to treatment, referral to Psychiatry This patient is aware of the benefits associated with DIANA: With continued use, the patient reduces the risk for CO, CVA, HTN, cardiac dysrhythmias and sudden cardiac deaths. The patient is also aware of the association between DIANA and morning headaches, daytime somnolence, fatigue and obesity, which also has been improved with continued use. The patient is compliant with treatment, wearing the equipment every night for greater than 4 hours. The patient is instructed to continue use of the CPAP for DIANA treatment. Compliant I have instructed this patient on the recommended lifestyle changes, which includes a low fat, high fiber diet along with a regular exercise routine. I have also reviewed the recommended age-appropriate preventive testing for this patient. I have also reviewed the recommended vaccines for their age and risk factors. I have recommended yearly PSA testing. I have informed him that the PSA can be elevated w/ cancer, infection and enlarged prostates. I have explained to the patient, that If his PSA is elevated, while there are many causes, referral will be recommended to r/o cancer. He would be referred to Urology, who may recommend an MRI, TRUS/bx or possibly continued monitoring. He is agreeable to this plan of action PSA: 1.3 - 08/2024 Author Jack Collins [facility] 2024 10:09pmI have seen and examined Black for his preoperative evaluation. I have reviewed his preoperative medical management. - instructed to hold his Trulicity one dose prior to surgery - instructed to hold morning Humalog the morning of surgery - instructed to decrease Lantus to 15u the evening prior to surgery Stable, continue Lisinopril/HCTZ w/o interruption Stable w/ A1C 6.6% Instructed to hold his Trulicity 7 days prior to surgery Instructed to hold his Humalog Insulin the morning of surgery Instructed to decrease his Lantus Insulin to 15u the night prior to surgery Stable, compliant w/ treatment. Stable, continue Rosuvastatin w/o interruption. Future Tests Future scheduled test information is unavailable Pending Tests Pending diagnostic test information is unavailable Future Visits Future appointment information is unavailable Future Procedures Procedure Name Ordered Date Scheduled Date Lipid Panel January 06, 2025 8:19am Future Medications Future medication information is unavailable Patient Instructions Patient instructions are unavailable
[2025-02-01 07:12] VITALS: BP 165/92; PULSE 76; TEMP 36.8; O2SAT 98; BMI 26.7
--- NOTE | 2025-02-01 07:24 | ECG_ITS ---
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 Measurements Intervals [place] Rate: 82 P: 41 WA: 186 QRS: 33 QRSD: 94 T: 34 QT: 476 QTc: 514 Interpretive Statements 1100 Sinus rhythm 4068 Nonspecific Twave abnormality 8304 Long QTc interval 9150 abnormal ECG Compared to ECG 05/09/2020 12:47:12 ST (T wave) deviation no longer present Electronically Signed On 02-01-2025 19:34:14 EST by KILEY OLIVIER M.D.
--- NOTE | 2025-02-01 07:25 | CT_ITS ---
The [address] [address] Patient Name: DONELL ANDRE MRN: [id number] date: 1975 Sex: M Assigned Patient Location: ER Current Patient Location: .MAIN Accession/Order Number: [id number] Exam Date: 02/01/2025 08:05 Report Date: 02/01/2025 08:40 At the request of: BHUMI CIFUENTES MD Procedure: CT abdomen pelvis w con CT ABDOMEN AND PELVIS WITH CONTRAST COMPARISON: None CLINICAL DATA: Low abdominal pain and cramping. History of IBS and melanoma. Spiral images were obtained through the abdomen and pelvis following 100 mL of Omnipaque 300. This CT exam was performed using one or more following dose reduction techniques: Automated exposure control, adjustment of the mA and/or kV according to patient size, or use of iterative reconstruction technique. Limited cuts in bases show no contributory findings. The gallbladder is surgically absent. No biliary dilatation or common duct stones are seen. There is fatty infiltration of the liver. The spleen, pancreas and adrenal glands show no acute findings. The renal nephrograms are symmetric. No hydronephrosis is noted. There is an 18 mm exophytic hypodensity at the mid pole of the right kidney posteriorly. This is not a simple cyst based on Hounsfield measurement of 47. The abdominal aorta is normal caliber. There are a few small nonpathologic lymph nodes. No ascites is seen. The small bowel loops are not disproportionately distended though there are some that contain fluid. The colon is mostly decompressed with segments of apparent wall thickening. Postoperative and mild degenerative changes are seen at the spine. Images through the pelvis show normal caliber small bowel loops with some containing fluid. There is no appendiceal inflammation. There is stool at the cecum. The distal colon is mostly decompressed. A small amount of fluid is Present within the sigmoid colon. Additional segments of apparent wall thickening are present. No diverticular disease is identified. The prostate is borderline prominent and there is slight lobulation superiorly exerting minor mass effect at the bladder trigone. The urinary bladder is otherwise unremarkable. There is no ascites. CT/CT abdomen pelvis w con IMPRESSION: FATTY LIVER. INDETERMINATE EXOPHYTIC RIGHT RENAL NODULE. ULTRASOUND FOLLOW-UP COULD BE CONSIDERED TO DETERMINE IF SOLID OR COMPLEX CYSTIC. NO BOWEL OR URINARY TRACT OBSTRUCTION. SEGMENTS OF APPARENT COLONIC WALL THICKENING. THIS MAY RELATE TO UNDERDISTENTION THOUGH CLINICAL CORRELATION SUGGESTED TO EXCLUDE ANY POSSIBILITY OF COLITIS. Impression dictated by: Maria Alejandra Saldaña M.D. 02/01/2025 8:40 AM Dictation Location: [place] [address] Electronically authenticated by: [id number] Y Date: 02/01/2025 08:40
--- NOTE | 2025-02-01 07:26 | ED.GENADUL1 ---
HPI HPI - General Adult General Chief complaint: Abdominal Pain Stated complaint: abdominal and back pain Time Seen by Provider: 02/01/25 07:12 History of Present Illness HPI narrative: 49-year-old male presents to the emergency department for abdominal pain. It is in his lower abdomen and has been continuous. It began last night about 8:30 PM. He has a history of IBS and has had some maroon-colored stool, he states just a small amount. He states that happens to him from time to time. He has a history of diverticulosis but no diverticulitis. No trauma fever or back pain. Related Data Home Medications ?Medication ?Instructions ?Recorded ?Confirmed alprazolam 0.5 mg tablet mg 02/01/25 amitriptyline 25 mg tablet 25 mg PO DAILY 02/01/25 02/01/25 baclofen 20 mg tablet 20 mg PO .QHS 02/01/25 02/01/25 bupropion HCl 100 mg tablet,12 hr 100 mg PO .qhs 02/01/25 02/01/25 sustained-release bupropion HCl 200 mg tablet,12 hr 200 mg PO QAM 02/01/25 02/01/25 sustained-release dulaglutide 4.5 mg/0.5 mL 4.5 mg subcut .WEEKLY 02/01/25 02/01/25 subcutaneous pen injector (Trulicity) escitalopram oxalate 20 mg tablet 20 mg PO DAILY 02/01/25 02/01/25 (Lexapro) galcanezumab-gnlm 120 mg/mL mg subcut .MONTHLY 02/01/25 subcutaneous pen injector (Emgality Pen) insulin glargine 100 unit/mL 25 unit subcut BID 02/01/25 02/01/25 subcutaneous solution (Lantus U-100 Insulin) insulin lispro 100 unit/mL 1 sliding scale dose subcut 02/01/25 02/01/25 subcutaneous solution (Humalog USEASDIRECTD U-100 Insulin) rosuvastatin 20 mg tablet (Crestor) 20 mg PO DAILY 02/01/25 02/01/25 sildenafil 100 mg tablet 100 mg PO Q24H 02/01/25 02/01/25 Previous Rx's ?Medication ?Instructions ?Recorded ciprofloxacin HCl 500 mg tablet 500 mg PO Q12H #20 tabs 02/01/25 (Cipro) hydrocodone 5 mg-acetaminophen 325 1 tab PO Q6H PRN pain 5 days #20 02/01/25 mg tablet tabs metronidazole 500 mg tablet 500 mg PO TID #30 tabs 02/01/25 ondansetron 4 mg disintegrating 4 mg PO Q6H PRN nausea and 02/01/25 tablet vomiting #20 tabs Allergies Allergy/AdvReac Type Severity Reaction Status Date / Time codeine Allergy Mild Hives Verified 02/01/25 07:12 Opioid HPI Opioid Management Most Recent Opioid Data: Last Pain Scale 7 Today, 08:38 Last MAY Pain Assessment Today, 08:38 Review of Systems ROS Narrative A ten point review of systems is negative except as noted above. PFSH PFSH Social History Little interest or pleasure in doing things: not at all Feeling down, depressed, or hopeless: not at all Exam Narrative Exam Narrative: Nurses note and vital signs reviewed General:The patient appears in no acute respiratory distress but appears uncomfortable. Skin:Warm, dry, no pallor noted.There is no rash noted. Head:Normocephalic, atraumatic Eye: Normal conjunctiva, no drainage Ears, Nose, Mouth, and Throat: oral mucosa is moist. Nares patent. Cardiovascular:Regular Rate and Rhythm Respiratory:Patient is in no distress, no accessory muscle use, lungs are clear to auscultation, no wheezing, rales or rhonchi Back:non-tender GI: Soft and nondistended. Mild diffuse tenderness across his lower abdomen, most pronounced in the midline. No masses. Musculoskeletal: The patient has no evidence of calf tenderness, no pitting edema, symmetrical pulses noted bilaterally Neurological:A&O, normal speech Psychiatric:Cooperative Constitutional Vital Signs, click to edit/add: Last Vital Signs Temp 98.2 F 02/01/25 07:12 Pulse 76 02/01/25 07:12 Resp 18 02/01/25 07:12 BP 165/92 H 02/01/25 07:12 Pulse Ox 98 02/01/25 07:12 O2 Del Method Room Air 02/01/25 07:12 Course Vital Signs Vital signs: Vital Signs Temperature 98.2 F 02/01/25 07:12 Pulse Rate 76 02/01/25 07:12 Respiratory Rate 18 02/01/25 07:12 Blood Pressure 165/92 H 02/01/25 07:12 Pulse Oximetry 98 02/01/25 07:12 Oxygen Delivery Method Room Air 02/01/25 07:12 Temperature 98.2 F 02/01/25 07:12 Pulse Rate 76 02/01/25 07:12 Respiratory Rate 18 02/01/25 07:12 Blood Pressure 165/92 H 02/01/25 07:12 Pulse Oximetry 98 02/01/25 07:12 Oxygen Delivery Method Room Air 02/01/25 07:12 Medical Decision Making MDM Narrative Medical decision making narrative: Colitis is identified on his CT per radiologist. He was given IV Cipro and Flagyl here and will be discharged home on Cipro and Flagyl as well as [place] and Zofran. Follow-up with his PCP. At this point I do not feel that he requires admission to the hospital. Treatment diagnosis and follow-up were discussed with the patient. He was also informed about the renal finding and will follow-up with his doctor as an outpatient for nonemergent ultrasound. Differential Diagnosis Differential Diagnosis: Colitis, diverticulitis Lab Data Lab results reviewed: Yes I reviewed the patient's lab results Labs: Lab Results 02/01/25 02/01/25 Range/Units 07:30 08:25 WBC 15.2 H (4.0-11.0) 10^3/uL RBC 5.08 (4.70-6.10) 10^6/uL Hgb 15.2 (14.0-18.0) g/dL Hct 45.1 (42.0-54.0) % MCV 88.8 (80.0-94.0) fL MCH 29.9 (25.9-34.0) pg MCHC 33.7 (29.9-35.2) g/dL RDW 13.1 (11.0-15.0) % Plt Count 299 (150-450) 10^3/uL MPV 10.3 (9.5-13.5) fL Neut % (Auto) 81.0 H (43.0-75.0) % Lymph % (Auto) 10.3 L (20.5-60.0) % [place] % (Auto) 7.2 (1.7-12.0) % Eos % (Auto) 1.0 (0.9-7.0) % Baso % (Auto) 0.3 (0.2-2.0) % Neut # (Auto) 12.3 H (1.4-6.5) 10^3/uL Lymph # (Auto) 1.6 (1.2-3.8) 10^3/uL [place] # (Auto) 1.1 H (0.3-0.8) 10^3/uL Eos # (Auto) 0.2 (0.0-0.7) 10^3/uL Baso # (Auto) 0.0 (0.0-0.1) 10^3/uL Abs Immat Gran (auto) 0.03 (0.00-0.03) 10^3/uL Imm/Tot Granulo (auto) 0.2 (0.0-0.5) % Sodium 140 (136-145) mmol/L Potassium 3.6 (3.5-5.1) mmol/L Chloride 101 (98-107) mmol/L Carbon Dioxide 29.8 (21.0-32.0) mmol/L Anion Gap 12.8 BUN 19.0 H (7.0-18.0) mg/dL Creatinine 0.93 (0.70-1.30) mg/dL Est GFR ( Amer) >60 (>=60 mL/min/1.73m^2) Est GFR (Non-Af Amer) >60 (>=60 mL/min/1.73m^2) BUN/Creatinine Ratio 20.4 Glucose 142 H (74-106) mg/dL Calcium 8.6 (8.5-10.1) mg/dL Total Bilirubin 0.5 (0.2-1.0) mg/dL Direct Bilirubin 0.1 (0.0-0.2) mg/dL AST 28 (15-37) U/L ALT 54 (16-63) U/L Alkaline Phosphatase 74 (46-116) U/L Total Protein 7.3 (6.4-8.2) g/dL Albumin 4.1 (3.4-5.0) g/dL Globulin 3.2 g/dL Albumin/Globulin Ratio 1.3 Amylase 74 (25-115) U/L Lipase 37.0 (16.0-77.0) U/L Urine Color Lt. yellow (YELLOW) Urine Clarity Clear (CLEAR) Urine pH 6.0 (5.0-9.0) Ur Specific [place] <=1.005 A (1.005-1.025) Urine Protein Negative (NEG/TRACE) mg/dL Urine Glucose (UA) Negative (NEGATIVE) mg/dL Urine Ketones Negative (NEGATIVE) mg/dL Urine Occult Blood Negative (NEGATIVE) Urine Nitrite Negative (NEGATIVE) Urine Bilirubin Negative (NEGATIVE) Urine Urobilinogen 0.2 (0.2-1.0) EU/dL Ur Leukocyte Esterase Negative (NEGATIVE) Urine RBC 0-2 (0-2) #/HPF Urine WBC None seen (NONE SEEN) #/HPF Ur Squamous Epith Cells Rare (NONE/RARE) #/LPF Urine Crystals None seen (None Seen) #/HPF Urine Bacteria None seen (NONE SEEN) #/HPF Urine Casts None seen (NONE SEEN) #/LPF Urine Mucus None seen (NONE SEEN) Ur Culture Indicated? No Imaging Data CT scan - abdomen: Radiologist's impression: ITS Impressions Abdomen/Pelvis CT 02/01/25 07:25 IMPRESSION: FATTY LIVER. INDETERMINATE EXOPHYTIC RIGHT RENAL NODULE. ULTRASOUND FOLLOW-UP COULD BE CONSIDERED TO DETERMINE IF SOLID OR COMPLEX CYSTIC. NO BOWEL OR URINARY TRACT OBSTRUCTION. SEGMENTS OF APPARENT COLONIC WALL THICKENING. THIS MAY RELATE TO UNDERDISTENTION THOUGH CLINICAL CORRELATION SUGGESTED TO EXCLUDE ANY POSSIBILITY OF COLITIS. Impression dictated by: Maria Alejandra Saldaña M.D. 02/01/2025 8:40 AM Dictation Location: [place] [address] Electronically authenticated by: [id number] Y Date: 02/01/2025 08:40 ECG Data Attestation: I personally reviewed and interpreted this ECG as follows: (EKG on my interpretation shows sinus rhythm with rate of 82 and no acute change.) Discharge Plan Discharge Chief Complaint: Abdominal Pain Clinical Impression: Colitis Patient Disposition: Home, Self-Care Time of Disposition Decision: 09:34 Condition: Good Mode of Transportation: Private Vehicle Prescriptions / Home Meds: New hydrocodone-acetaminophen 5-325 mg tablet 1 tab PO Q6H PRN (Reason: pain) 5 Days Qty: 20 0RF ciprofloxacin HCl [Cipro] 500 mg tablet 500 mg PO Q12H Qty: 20 0RF metronidazole 500 mg tablet 500 mg PO TID Qty: 30 0RF ondansetron 4 mg tablet,disintegrating 4 mg PO Q6H PRN (Reason: nausea and vomiting) Qty: 20 0RF No Action baclofen 20 mg tablet 20 mg PO .QHS alprazolam 0.5 mg tablet rosuvastatin [Crestor] 20 mg tablet 20 mg PO DAILY insulin glargine [Lantus U-100 Insulin] 100 unit/mL solution 25 unit subcut BID amitriptyline 25 mg tablet 25 mg PO DAILY insulin lispro [Humalog U-100 Insulin] 100 unit/mL solution 1 sliding scale dose subcut USEASDIRECTD escitalopram oxalate [Lexapro] 20 mg tablet 20 mg PO DAILY Emgality Pen 120 mg/mL pen injector subcut .MONTHLY Trulicity 4.5 mg/0.5 mL pen injector 4.5 mg SUBCUT .WEEKLY sildenafil 100 mg tablet 100 mg PO Q24H bupropion HCl 200 mg tablet sustained-release 12 hr 200 mg PO QAM bupropion HCl 100 mg tablet sustained-release 12 hr 100 mg PO .qhs Print Language: Grenadian Instructions: Colitis (ED) Referrals: Jack Collins DO [Primary Care Provider, Internal Medicine] - 1 week
[2025-02-01 07:39] LABS: Hematocrit 45.1 % (42.0-54.0); Hemoglobin 15.2 g/dL (14.0-18.0); Immature Granulocytes Abs Auto 0.03 10^3/uL (0.00-0.03); Immature Granulocytes Pct Auto 0.2 % (0.0-0.5); Lymphocytes Absolute Auto 1.6 10^3/uL (1.2-3.8); Mean Corpuscular HGB Conc 33.7 g/dL (29.9-35.2); Mean Corpuscular Hemoglobin 29.9 pg (25.9-34.0); Mean Corpuscular Volume 88.8 fL (80.0-94.0); Platelet Count 299 10^3/uL (150-450); Red Blood Count 5.08 10^6/uL (4.70-6.10); White Blood Count 15.2 10^3/uL (4.0-11.0)
[2025-02-01] MEDS: MORPHINE SULFATE 4 MG/ML VIAL IV ×2 (07:42→08:38)
[2025-02-01] MEDS: 0.9 % SODIUM CHLORIDE 1,000 ML 1000 ML IV (07:42)
[2025-02-01 07:48] LABS: Anion Gap 12.8; Blood Urea Nitrogen 19.0 mg/dL (7.0-18.0); Calcium 8.6 mg/dL (8.5-10.1); Carbon Dioxide 29.8 mmol/L (21.0-32.0); Chloride 101 mmol/L (98-107); Estimated GFR (African America >60 (>=60 mL/min/1.73m^2); Estimated GFR (Non-African Ame >60 (>=60 mL/min/1.73m^2); Glucose 142 mg/dL (74-106); Potassium 3.6 mmol/L (3.5-5.1); Sodium 140 mmol/L (136-145)
[2025-02-01 07:49] VITALS: PULSE 83
[2025-02-01 08:01] LABS: Alanine Aminotransferase 54 U/L (16-63); Albumin Globulin Ratio 1.3; Albumin Level 4.1 g/dL (3.4-5.0); Alkaline Phosphatase 74 U/L (46-116); Amylase 74 U/L (25-115); Aspartate Amino Transferase 28 U/L (15-37); Globulin 3.2 g/dL; Lipase 37.0 U/L (16.0-77.0); Total Protein 7.3 g/dL (6.4-8.2)
--- OUTSIDE RECORDS SUMMARY | 2025-02-01 08:16 | XMS_ITS | Clinical Summary ---
Author Organization [facility] Address [address] [place] [id number] Care Team Providers Care Scrap Carrier Name Role Phone Alvino Rudolph MD Unavailable [phone] Jack Collins DO Primary Care Provider [phone] Allergies Active AllergyReactionsCriticalityNoted DateCommentsCodeineGI Upset,Hives, Intolerance,Itching,XsmaYxk5112/10/2022 Medications MedicationSigDispense QuantityRefillsLast FilledStart DateEnd DateStatus acetaminophen (TYLENOL) 500 mg tablet Take 1,300 mg by mouth.Active ALPRAZolam (XANAX) 0.5 mg tablet Take 0.5 mg by mouth.09/30/2020ctive baclofen (LIORESAL) 20 mg tablet TAKE 1 TABLET BY MOUTH EVERYDAY AT JKJKTDZ9612/05/2021ctive benazepril (LOTENSIN) 10 mg tablet Take 10 mg by mouth once daily.11/17/2021ctive benazepril/hydrochlorothiazide (LOTENSIN HCT ORAL) Active cetirizine (ZYRTEC) 10 mg tablet Active escitalopram oxalate (LEXAPRO) 20 mg tablet Take 20 mg by mouth.08/27/2020ctive fremanezumab-vfrm (AJOVY AUTOINJECTOR) 225 mg/1.5 mL auto-injector Active rosuvastatin (CRESTOR) 20 mg tablet Take 20 mg by mouth.09/25/2020ctive pregabalin (LYRICA) 50 mg capsule TAKE 1 CAPSULE (50 MG TOTAL) BY MOUTH IN THE MORNING AND 1 CAPSULE (50 MG TOTAL) BEFORE BEDTIME.02/03/2022ctive rizatriptan (MAXALT) 5 mg tablet TAKE 1 TABLET BY MOUTH AT ONSET OF MIGRAINE MAY REPEAT 1 TAB IN 2HRS IF NEEDED 02/12/2022ctive glucagon (GLUCAGEN) 1 mg/mL injection Inject 1 mg intravenously one time only for 1 dose. For MRI Enterography, Inject 1 mg intravenously, as directed. Slow push at the appropriate time during MRI Scan 1 Each 03/13/2022ctive amitriptyline (ELAVIL) 25 mg tablet TAKE 1/2 TO 1 TABLET BY MOUTH EVERY DAY AT BEDTIMEActive WELLBUTRIN SR 200 mg 12 hr tablet 02/24/2024ctive EMGALITY PEN 120 mg/mL pen Inject 120 mg subcutaneously once every month.6Active ubrogepant (UBRELVY) 100 mg tablet Take 1 tablet by mouth.11/26/2023ctive LANTUS SOLOSTAR U-100 INSULIN 100 unit/mL (3 mL) INJECT 50 UNITS SUBCUTANEOUSLY ONCE A DAY10/28/2024tive insulin lispro (HUMALOG KWIKPEN INSULIN SQ) Active TRULICITY 4.5 mg/0.5 mL pen injector INJECT 4.5 MG (0.5 ML) SUBCUTANEOUSLY ONCE EVERY WEEK FOR 90 DAYSActive polyethylene glycol 3350 (MIRALAX) 17 gram/dose powder Take 17 g by mouth once daily. Dissolve dose in 4 - 8 ounces of liquid and take as directed. 1530 g 5Active omeprazole (PRILOSEC) 40 mg capsule Take 1 capsule by mouth once daily. 90 capsule 5Active Encounters DateTypeDepartmentCare UfmhCxsetmnudds51/11/2025 8:30 AM EDTOffice Visit Gastroenterology [address] [address] [place] [id number] Teofilo Tovar, TELEGRAPHIC INSTRUMENT SUPERVISOR.REPLENISHMENT SPECIALIST Gastroesophageal reflux disease without esophagitis (Primary Dx); Irritable bowel syndrome with uxvhptdbifrj43/09/2025Travelfrom Last 3 Months Family History Medical HistoryRelationCommentsColon CancerFatherRelationStatusCommentsFather Social History Tobacco UseTypesPacks/DayYears UsedDateSmoking Tobacco: NeverSmokeless Tobacco: Never Tobacco Cessation:Counseling Given: Not Answered Alcohol UseStandard Drinks/WeekCommentsNot Currently0 (1 standard drink = 0.6 oz pure alcohol)AUDIT-CAnswerDate RecordedQ1: How often do you have a drink containing alcohol?Never11/19/2024verage Number of DrinksNot on file11/19/2024 Frequency of Binge DrinkingNot on file11/19/2024rea Deprivation IndexAnswerDate RecordedNational Score (1-100), lower number is lower ggmg813812/16/2023State Score (1-10), lower number is lower sfxi574ata from: https://www.neighborhoodatlas.[facility].edu/. Last address used for xlsyyjebcup[address]/16/2023Sex and Gender InformationValueDate Recorded Sex Assigned at EnlqeWruu90/02/2023 11:53 PM ESTLegal UrjKyuw2809/05/2021 2:10 PM EDTGender CdylsfsiUmip34/02/2023 11:53 PM ESTSexual OrientationStraight 03/12/2022 11:53 PM EST Last Filed Vital Signs Vital SignReadingTime TakenCommentsBlood Bhqflori973/8209 8:32 AM EDT Aunbu796111/19/2024 8:32 AM EDTTemperature--Respiratory Snji1127 11:15 AM ESTOxygen Hkayyahmwd34%03/13/2022 11:15 AM ESTInhaled Oxygen Concentration-- Xalmtw01.3 kg (210 lb)11/19/2024 8:32 AM UFKRqyuqz035.5 cm (6' 3 )03/13/2022 10:10 AM ESTBody Mass Index26.25003/13/2022 10:10 AM EST Plan of Treatment Health MaintenanceDue DateLast DoneCommentsAnxiety Yjmbmpzro60/09/1994Depression Nqdumekap97/09/1994HIV Kbvtpidhi91/09/1994Hepatitis C Bfbnufkcc24/09/1994 DTaP,Tdap,Td Vaccine (1 - Tdap)05/17/1994Hepatitis B Vaccine (1 of 3 - 19+ 3- dose series)05/17/1994Lipid Ptgbviurk61/09/2011CT Pqjxbnjpcguj94/09/2021 Cologuard (FIT-DNA)1Diabetes Gfjifxmtc35/09/2021Fecal Occult Blood 05/17/20201938Soixpaptixozz65/09/2021Covid-19 Vaccine ( season)2024 11/30/2022, 02/11/2021, 04/13/2020, Additional history existsInfluenza Vaccine (#1)/, 11/28/2022, 01/23/20219755Njskmmputyh71/03/05984303/13/2022, 03/13/2022olorectal Cancer Zbmpqtftc41/03/2028 Procedures Procedure NamePriorityDate/TimeAssociated DiagnosisCommentsCOLONOSCOPY DMFSXOMWXMDxhkvqv40/03/2023 10:34 AM EST Diarrhea, unspecified type from Last 3 Months or Most Recently Relevant to Health Maintenance Results * COLONOSCOPY DIAGNOSTIC (03/13/2022 10:34 AM EST)Anatomical RegionLaterality ModalityOtherSpecimen (Source)Anatomical Location / LateralityCollection Method / VolumeCollection TimeReceived Time03/13/2022 10:34 AM EST Narrative 03/13/2022 11:07 AM EST [facility] Gastro[facility] Gastrointestinal Endoscopy Patient Name: Donell Dumont Procedure Date: 03/13/2022 10:34 AM Date of : 1975 Admit Type: Outpatient Age: 46 Room: [place] [address] Gender: Male 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 Colonoscopy Indications: ? Chronic diarrhea Providers: ? Vashti Llamas DO Patient Profile: ? This is a 46 year old male. Refer to note in ? patient chart for documentation of history and ? physical. Last Colonoscopy: 2020. Referring Physician: ?? Paige Rizzo (Referring MD), Jack Collins ? (Referring MD) Medicines: ? See the Anesthesia note for documentation of the ? administered medications Complications: ? No immediate complications. Requesting Provider: ?? Procedure: ? Pre-Anesthesia Assessment: ? - Prior to the procedure, a History and Physical ? was performed, and patient medications and ? allergies were reviewed. The patient's tolerance of ? previous anesthesia was also reviewed. The risks ? and benefits of the procedure and the sedation ? options and risks were discussed with the patient. ? All questions were answered, and informed consent ? was obtained. Prior Anticoagulants: The patient has ? taken no anticoagulant or antiplatelet agents. ASA ? Grade Assessment: II - A patient with mild systemic ? disease. After reviewing the risks and benefits, ? the patient was deemed in satisfactory condition to ? undergo the procedure. ? After I obtained informed consent, the scope was ? passed under direct vision. Throughout the ? procedure, the patient's blood pressure, pulse, and ? oxygen saturations were monitored continuously. The ? Colonoscope was introduced through the anus and ? advanced to the cecum, identified by appendiceal ? orifice and ileocecal valve. I was present and ? participated during the entire procedure, including ? non-barreto portions, and during the administration and ? monitoring of Moderate Sedation. The colonoscopy ? was performed without difficulty. The patient ? tolerated the procedure well. The quality of the ? bowel preparation was fair. The terminal ileum, ? ileocecal valve, appendiceal orifice, and rectum ? were photographed. Scope Withdrawal Time: 0 hours 10 minutes 56 seconds Moderate Sedation: ? MAC anesthesia was administered by the anesthesia ? team. Findings: ? The terminal ileum appeared normal. Biopsies were taken with a cold ? forceps for histology. Estimated blood loss was minimal. ? A 3 mm polyp was found in the transverse colon. The polyp was ? sessile. The polyp was removed with a cold biopsy forceps. Resection ? and retrieval were complete. Estimated blood loss was minimal. ? Scattered small-mouthed diverticula were found in the left colon. ? There was no evidence of diverticular bleeding. ? Non-bleeding internal hemorrhoids were found during retroflexion. The ? hemorrhoids were small. ? The exam was otherwise without abnormality. ? Biopsies for histology were taken with a cold forceps from the right ? colon and left colon for evaluation of microscopic colitis. Estimated ? blood loss was minimal. Impression: ?- Preparation of the colon was fair. ? - The examined portion of the ileum was normal. ? Biopsied. ? - One 3 mm polyp in the transverse colon, removed ? with a cold biopsy forceps. Resected and retrieved. ? - Diverticulosis in the left colon. There was no ? evidence of diverticular bleeding. ? - Non-bleeding internal hemorrhoids. ? - The examination was otherwise normal. ? - Biopsies were taken with a cold forceps from the ? right colon and left colon for evaluation of ? microscopic colitis. Recommendation: ?- Patient has a contact number available for ? emergencies. The signs and symptoms of potential ? delayed complications were discussed with the ? patient. Return to normal activities tomorrow. ? Written discharge instructions were provided to the ? patient. ? - Continue present medications. ? - Await pathology results. ? - Repeat colonoscopy in 5 years for surveillance. ? - Return to referring physician. Procedure Code(s): ? --- Professional --- ? 63301, Colonoscopy, flexible; with biopsy, single ? or multiple Diagnosis Code(s): ? --- Professional --- ? K64.8, Other hemorrhoids ? D12.3, Benign neoplasm of transverse colon (hepatic ? flexure or splenic flexure) ? K52.9, Noninfective gastroenteritis and colitis, ? unspecified ? K57.30, Diverticulosis of large intestine without ? perforation or abscess without bleeding CPT copyright 2020 [employer]. All rights reserved. The codes documented in this report are preliminary and upon card hand review may be revised to meet current compliance requirements. Scope In: 10:35:45 AM Scope Out: 10:55:34 AM DO Vashti Flores DO 03/13/2022 11:00:52 AM This report has been signed electronically by Vashti Llamas DO Number of Addenda: 0 Note Initiated On: 03/13/2022 10:34 AM Estimated Blood Loss: ? Estimated blood loss was minimal. Authorizing ProviderResult TypeResult StatusStolegario Rizzo APRN.CNPDIGESTIVE DISEASEEdited Result - Final from Last 3 Months or Most Recently Relevant to Health Maintenance Insurance MemberSubscriberPlan / Payer (Effective 2023-Present)Name:DONELL DUMONT Relation to Subscriber:SpouseName:KERMIT DUMONT Date of :1975 (Home) Address: [facility] [place] [address] Payer ID:[id number] (NAIC) Type:PPO Address: [facility] [id number] [place] [id number] Care Teams Team MemberRelationshipSpecialtyStart DateEnd Date Jack Collins DO [address] [facility] [place] [address] PCP - GeneralInternal Sbpfnqpv88/24/22 Alvino Rudolph MD [address] [place] [address] [address] [place] [address] ReferringGastroenterology09/05/21
--- OUTSIDE RECORDS SUMMARY | 2025-02-01 08:16 | XMS_ITS | Clinical Summary ---
Author Organization [facility] Address [address] [place] [address] Care Team Providers Care Registered Associate Name Role Phone Jack Collins Primary Care Provider [phone] Allergies Active AllergyReactionsCriticalityNoted DateCommentsCodeineHives,Itching,RashLow 12/10/2022 Medications MedicationSigDispense QuantityRefillsLast FilledStart DateEnd DateStatus SITagliptin (Januvia) 50 MG tablet Take 50 mg by mouth DailyActive insulin lispro protamine-insulin lispro (HumaLOG MIX 50/50 KWIKPEN) (50-50) 100 UNIT/ML injection Inject 100 Units under the skin in the morning and 100 Units in the evening. Inject with meals.Active omeprazole (PriLOSEC) [address] capsule Take 40 mg by mouth in the morning. Take before meals. Do not crush or chew.e 1 capsule 30 minutes before morning meal .Active Cetirizine HCl (ZYRTEC PO) Take by mouthActive baclofen (Lioresal) 20 MG tablet Take 20 mg by mouth in the morning and 20 mg in the evening and 20 mg before bedtime.Active ALPRAZolam (Xanax) 0.5 MG tablet Take 0.5 mg by mouth as needed at bedtime for anxietyActive escitalopram (Lexapro) 20 MG tablet Take 20 mg by mouth Daily 1 tabletActive benazepril (Lotensin) 10 MG tablet Take 10 mg by mouth Daily 1 tabletActive rosuvastatin (Crestor) 20 MG tablet Take 20 mg by mouth Daily 1 tabletActive Dulaglutide 4.5 MG/0.5ML solution auto-injector Inject 4.5 mg under the skin 1 (one) time per week INJECT 4.5 MG (0.5 ML) SUBCUTANEOUSLY ONCE EVERYWEEK FOR 90 DAYSActive benazepril-hydroCHLOROthiazide (Lotensin HCT) 20-25 MG tablet Take 1 tablet by mouth DailyActive isosorbide mononitrate ER (Imdur) 30 MG 24 hr tablet Every tfmlyet3311/13/2023ctive metoprolol succinate XL (Toprol-XL) 25 MG 24 hr tablet Daily at raszjsk6211/25/2023ctive sildenafil (Viagra) 100 MG tablet Daily07/10/2023ctive Ubrogepant (Ubrelvy) 100 MG tablet Indications:Migraine without status migrainosus, not intractable, unspecified migraine typeTake 1 tablet by mouth if needed (May repeat in 2 hours. Max of 2 tablets in 24 hours.) 10 tablet 6011/26/2023ctive amitriptyline (Elavil) 25 MG tablet Indications:Obstructive sleep apnea (adult) (pediatric)TAKE 1/2 TO 1 TABLET BY MOUTH EVERY DAY AT BEDTIME 90 tablet 4Active Wellbutrin SR 200 MG 12 hr tablet Take 200 mg by mouth Daily02/24/2024ctive galcanezumab (Emgality) 120 MG/ML auto-injector Indications:Chronic migraine with aura without status migrainosus, not intractableInject 1 Syringe (120 mg) under the skin every 30 (thirty) days 1 mL 11004/06/926376/6Active methylPREDNISolone (Medrol Dospak) 4 MG tablets Indications:Other specified disorders of synovium, right ankle and footFollow schedule on MEDROL PACK package instructions to be used as directed 21 tablet 5Active traMADol (Ultram) 50 MG tablet Indications:PainTake 1 tablet (50 mg) by mouth every 8 (eight) hours if needed for severe pain for up to 5 days 15 tablet 5104/02/2024Expired Active Problems ProblemNoted DateDiagnosed DateCarpal tunnel syndrome, left07/08/2023 Overview (07/08/2023): CTS left moderate. This doesn't seem to be particularly bothersome currently. We will continue to monitor clinically. Drejtf2507/08/2023 Overview (07/08/2023): It is my impression that the patient has ataxia and gait imbalance with abnormal wxlwtv-es-aztt testing. Along with his cognitive complaints, headaches and visual disturbance and concern for multifocal intracranial pathology to explain symptoms. He would be the proper age for concern such as multiple sclerosis which have not correctly identified and treated to be debilitating or life-threatening. . Plan: MRI of the brain with and without contrast DDD (degenerative disc disease), dkclmnud24/29/2024 Overview (07/08/2023): The patient does have degenerative disc disease of the cervical spine this is confirmed with EMG and MRI in 2020. This would explain neck pain which radiates into the arms. . PLAN: - Close follow-up with pain management Ssngqbbw95/29/2024 Overview (07/08/2023): It is my impression that the patient has chronic migraines. Accompanying phonophobia, photophobia, nausea and blurred vision. He has tried and failed sumatriptan, verapamil, and now Ajovy. MRI brain in 2021 was unremarkable. Of note he does not sleep well at night due to back pain and has DIANA, likely contributing to migraines. Emgality has thus far been very beneficial. He has only needed to takehis triptan twice in the past month. PLAN: - Continue Emgality 120 mg SC injection monthly. Currently tolerating without side effects - Continue rizatriptan to 10 mg as needed as an abortive (Continue to monitor efficacy). - Stop Ajovy (was experiencing wearing of after 3 weeks) - Recommended adequate hydration, sleep hygiene, and regular exercise. - Ubrelvy and Nurtec were ineffective Daytime dsydqlgocyzfayf71/29/2024 Overview (07/08/2023): Patient reports ongoing difficulty sleeping at night. He reports never waking up feeling well rested. He recently completed a sleep study and will be getting a CPAP. Certainly DIANA may be contributingto his headaches. DIANA (obstructive sleep apnea)07/08/2023 Overview (07/08/2023): The patient has DIANA and recently started CPAP (he is having difficulty tolerating). Better control of DIANA and better quality of sleep will likely improve migraines. PLAN: - Continue close follow up with sleep medicine (Dr. Kumari) - Now on amitriptyline (likely beneficial from a migraine standpoint as well) Tmbebforhus37/29/2024rimary ukjmqahp76/29/2024Malignant melanoma of left ear 07/08/2023 Overview (07/08/2023): Important clinical diagnosis. MRI of the brain September of 2021 was unremarkable. Encounters DateTypeDepartmentCare LnnbDgeyucyzqeu70/18/2025 4:40 PM ESTOffice Visit [facility] [address] [place] [address] Gregory Jose DPM Left Achilles tendinitis (Primary Dx); Contracture of left ankle; Posterior tibial tendonitis of right leg; Contracture of right ankle; Achilles tendon tear, left, initial rysilnoqc64/18/2025External Result Encounter [facility] External Department Unsolicited Gregory Jose DPM 01/26/2025External Result Encounter [facility] External Department Unsolicited Gregory Jose DPM 01/26/2025External Result Encounter [facility] External Department Unsolicited Gregory Jose DPM 01/26/2025bstract [facility] [address] [place] [address] Gregory Jose DPM 01/26/2025bstract [facility] [address] [place] [address] Gregory Jose DPM 01/26/2025amboo flowsheet [facility] [place] [facility] [address] [place] [address] Gregory Jose DPM 01/25/2025Orders Only [facility] [address] [place] [id number] Lidia Castro Preop /13/6072Aadmzo18/12/2025bstract [facility] [address] [facility] [address] [place] [address] Gregory Jose DPM 01/18/2025 4:30 PM ESTClinical Support [facility] [address] [place] [address] Gregory Jose DPM Other specified disorders of synovium, right ankle and foot (Primary Dx); Left Achilles tendinitis; Posterior tibial tendonitis of right leg; Contracture of left ankle; Contracture of right ankle01/18/2025Telephone [facility] [address] [facility] [address] [place] [address] Gregory Jose DPM Casting For Braces Or Dwzesblul08/10/2025amboo flowsheet [facility] [address] [place] [address] Gregory Jose DPM 01/12/20251708Jqjgml73/03/7265Stnqfd67/29/2025 5:30 PM EDTTreatment [facility] [address] [facility] [address] [place] [address] Chanel Calloway, COTTON EXPERT Left Achilles tendinitis (Primary Dx)01/06/2025amboo flowsheet [facility] [address] [facility] [address] [place] [address] Kim Callowayissa, COTTON EXPERT 01/06/20250353Vonffx02/27/2025 4:30 PM EDTOffice Visit [facility] [address] [place] [address] Gregory Jose DPM Other specified disorders of synovium, right ankle and foot (Primary Dx); Achilles tendon tear, left, initial encounter; Left Achilles tendinitis; Posterior tibial tendonitis of right leg; Contracture of left ankle; Contracture of right ankle01/04/2025amboo flowsheet [facility] [place] [facility] [address] [facility] [place] [address] Gregory Jose DPM 12/30/20245872Ibwpwx30/21/2025 5:30 PM EDTTreatment [facility] [address] [place] [address] Bandar Parr, C[employer]TON EXP[employer] Left Achilles tendinitis (Primary Dx)12/29/2024 flowsheet [facility] [address] [place] [address] Bandar Parr, COTTON EXPERT 12/29/20245315Llmayq77/20/6923Ustcdl20/14/2025 5:30 PM EDTTreatment [facility] [address] [place] [address] Bandar Parr, COTTON EXPERT Left Achilles tendinitis (Primary Dx)12/22/2024 flowsheet [facility] [address] [place] [address] Bandar Parr, COTTON EXPERT 12/22/20249927Qbpbhc49/12/9985Gaedip46/07/2025 5:30 PM EDTTreatment [facility] [address] [place] [address] Bandar Parr, COTTON EXPERT Left Achilles tendinitis (Primary Dx)12/15/2024 flowsheet [facility] [address] [place] [address] Bandar Parr, COTTON EXPERT 12/15/20245049Ulwbbb02/02/2025 4:00 PM EDTOffice Visit [facility] [address] [place] [address] Gregory Jose DPM Achilles tendon tear, left, initial encounter (Primary Dx); Left Achilles tendinitis; Contracture of left ankle; Other specified disorders of synovium, right ankle and foot; Posterior tibial tendonitis of right leg10/02/2025Bamboo flowsheet [facility] [address] [place] [address] Gregory Jose DPM 12/10/20249646Djahsb10/30/2025 4:30 PM EDTTreatment [facility] [address] [place] [address] Bandar Parr, COTTON EXPERT Left Achilles tendinitis (Primary Dx)12/08/2024amboo flowsheet [facility] [address] [place] [address] Bandar Parr, COTTON EXPERT 12/08/20241559Rfmszg93/29/0764Vhzoyk83/23/2025 4:30 PM EDTTreatment [facility] [address] [place] [address] Bandar Parr, COTTON EXPERT Left Achilles tendinitis (Primary Dx)12/01/2024amboo flowsheet [facility] [address] [place] [address] Bandar Parr, COTTON EXPERT 12/01/20246529Unidjx37/17/2025Plan of Care Documentation [facility] [address] [place] [address] 11/24/2024 2:30 PM EDTEvaluation [facility] [address] [place] [address] Ilsa Pittman, PT Left Achilles gdqadznygw68/16/2025amboo flowsheet [facility] [address] [place] [address] Ilsa Pittman, PT 11/24/20242718Vgacip25/09/5422Ermvyy19/02/2025 2:00 PM EDTOffice Visit [facility] [place] [facility] [address] [place] [address] Gregory Jose, DPM Left Achilles tendinitis (Primary Dx); Contracture of left ankle; Other specified disorders of synovium, right ankle and foot; Posterior tibial tendonitis of right leg11/10/2024amboo flowsheet [facility] [place] [facility] [address] [place] [address] Gregory Jose, DPM 11/03/2024Travelfrom Last 3 Months Family History Medical HistoryRelationNameCommentsCancerFatherKenCoronary artery diseaseFather KenDiabetesFatherKenNeuropathyFatherKenRestless legs syndromeFatherKen ParkinsonismMaternal GrandfatherCecilStrokeMaternal GrandfatherCecilAlzheimer's diseaseMaternal GrandmotherMarjorieDementiaMaternal GrandmotherMarjorie DepressionMaternal GrandmotherMarjorieDepressionMotherShirleyDiabetesMother ShirleyHyperlipidemiaMotherShirleyHypertensionMotherShirleyLiver diseaseMother ShirleyMigrainesMotherShirleyAllergiesOtherOsteoporosisOtherPeripheral vascular diseaseOtherhearing deficiencyOtherDepressionPaternal GrandmotherKathrynADD / ADHDSisterStaciaAnxiety disorderSisterStaciaDepressionSisterStaciaRelationName StatusCommentsFatherKenDeceasedMaternal GrandfatherCecilMaternal Grandmother MarjorieMotherShirleyAliveOtherPaternal GrandmotherKathrynSiblingAliveSister Nancy Social History Tobacco UseTypesPacks/DayYears UsedDateSmoking Tobacco: NeverSmokeless [...] Assigned at BirthMale 04/29/2024 2:06 PM ESTLegal DsoZozq2505/23/2022 7:00 PM EDTGender IdentityMale 04/29/2024 2:06 PM ESTSexual KxwipauslfnWycwpsdg24/19/2025 2:06 PM EST Last Filed Vital Signs Vital SignReadingTime TakenCommentsBlood Vlzotelu802/78004/06/2024 8:16 AM EST Tlbqa460704/06/2024 8:16 AM ESTTemperature--Respiratory Miup907903/28/2024 4:38 PM ESTOxygen Foqvofkiuv01%04/06/2024 8:16 AM ESTInhaled Oxygen Concentration-- Kurhyr98.7 kg (211 lb)01/26/2025 4:38 PM GKAFjmtlw262 cm (6' 2 )01/26/2025 4:38 PM ESTBody Mass Index27.0901/26/2025 4:38 PM EST Plan of Treatment DateTypeDepartmentCare Team (Latest Contact Info)Onqurubiiay66/03/2025 3:20 PM ESTOffice Visit [facility] [address] [place] [address] Gregory Jose DPM [address] [address] Health MaintenanceDue DateLast DoneCommentsCT Oyvzlmmwtfof43/09/1976FIT-DNA 1975FIT1975FOBT05/18/19753685Eiaynhitqpqts39/09/1976COVID-19 Vaccine ( season)5011/30/2022, 02/11/2021, 04/13/2020, Additional history hupdymOtjnojbjugf06, 03/13/2022olorectal Cancer Daxbempha50/03/2033Influenza CngiehcMskqblhjb34/15/2025, 12/23/2023, 11/28/2022, Additional history existsPneumococcal Vaccine: Pediatrics (0 to 5 Years) and At- Risk Patients (6 to 64 Years)Aged OutNo longer eligible based on patient's age to complete this topic Procedures Procedure NamePriorityDate/TimeAssociated DiagnosisCommentsBASIC METABOLIC PANEL Wonzaok9601/26/2025 3:35 PM EST CBC WITH AUTO ALNDHPFMKHYPKhrziyw72/18/2025 3:35 PM EST ECG 12-LEAD01/26/2025 3:28 PM EST MR ANKLE LEFT WO IV VKBCXJSCLlfleko41/21/2025 5:06 PM EDT Achilles tendon tear, left, initial encounter from Last 3 Months Results * CBC auto differential (01/26/2025 3:35 PM EST)ComponentValueRef RangeTest MethodAnalysis TimePerformed AtPathologist SignatureWBC6.74.1 - 10.5 [CFU]/mL 01/26/2025 5:04 PM [facility] CtrUNCORRECTED WHITE BLOOD COUNT6.74.1 - 10.5 10*3/uL01/26/2025 5:04 PM [facility] RBC4.683.90 - 5.60 10*6/uL01/26/2025 5:04 PM [facility] SUAUSNYUVA64.913.0 - 17.0 g/dL01/26/2025 5:04 PM [facility] CslBDKSPBBDDA61.638.8 - 50.0 %01/26/2025 5:04 PM [facility] OmxVPO86.683.5 - 101 fL01/26/2025 5:04 PM [facility] GvyCIR60.727.5 - 35.2 pg01/26/2025 5:04 PM [facility] CotUPRL87.332.5 - 35.6 g/dL01/26/2025 5:04 PM [facility] CtrRED CELL DISTRIBUTION WIDTH, RDW13.712.0 - 14.8 %01/26/2025 5:04 PM [facility] CtrPLATELET ZXLGJ464780 - 450 10*3/uL01/26/2025 5:04 PM [facility] CtrMEAN PLATELET VOLUME, MPV8.86.6 - 10.1 fL01/26/2025 5:04 PM [facility] CtrNEUTROPHILS, %54.3. %01/26/2025 5:04 PM [facility] CtrLYMPHOCYTES, %33.2. % 01/26/2025 5:04 PM [facility] CtrMONOCYTE/MACROPHAGE, %7.6. %01/26/2025 5:04 PM [facility] CtrEOSINOPHILS, %4.4. % 01/26/2025 5:04 PM [facility] CtrBASOPHILS, %0.5. % 01/26/2025 5:04 PM [facility] CtrNRBC0.10 - 0.5 /100{WBC} 01/26/2025 5:04 PM [facility] CtrNEUTROPHILS3.71.8 - 7.7 10*3/uL01/26/2025 5:04 PM [facility] CtrLYMPHOCYTES2.21.00 - 4.8 10*3/uL01/26/2025 5:04 PM [facility] CtrMONOCYTES0.5 0.0 - 0.8 10*3/uL01/26/2025 5:04 PM [facility] EOSINOPHILS0.30.0 - 0.45 10*3/uL01/26/2025 5:04 PM [facility] CtrBASOPHILS0.00.0 - 0.2 10*3/uL01/26/2025 5:04 PM [facility] CtrSpecimen (Source)Anatomical Location / Laterality Collection Method / VolumeCollection TimeReceived TimeBlood (Blood)01/26/2025 3:35 PM EST01/26/2025 3:36 PM EST Narrative Authorizing ProviderResult TypeResult StatusNicholas Shayla Jose DPMLAB BLOOD ORDERABLESFinal ResultPerforming OrganizationAddressCity/State/ZIP CodePhone Number [facility] [address] [place] [address], [facility] [address] [place] [address] * (ABNORMAL) Basic metabolic panel (01/26/2025 3:35 PM EST)ComponentValueRef RangeTest MethodAnalysis TimePerformed AtPathologist AidiwjiihYukxpgq021(H)70 - 100 mg/dL01/26/2025 5:21 PM [facility] CtrComment: Random Glucose Reference Range is dependent on time and content of last meal. Glucose of more than 200 mg/dL in a nonstressed, ambulatory subject supports the diagnosis of Diabetes Mellitus. ADA recommended reference range GFH266 - 25 mg/dL01/26/2025 5:21 PM [facility] CtrCREATININE 0.820.70 - 1.30 mg/dL01/26/2025 5:21 PM [facility] ESTIMATED GFR>60. 5:21 PM [facility] CnvUdcddm370 136 - 145 mmol/L103/28/2024 5:21 PM [facility] CtrPotassium, Bld3.83.5 - 5.1 mmol/L103/28/2024 5:21 PM [facility] Khjywket83185 - 107 mmol/L103/28/2024 5:21 PM [facility] Carbon Zgqgjal65.7(H)21.0 - 31.0 mmol/L103/28/2024 5:21 PM [facility] CtrAnion Gap10.16.0 - 15. 5:21 PM [facility] CtrCalcium9.08.6 - 10.3 mg/dL01/26/2025 5:21 PM [facility] CtrSpecimen (Source)Anatomical Location / LateralityCollection Method / VolumeCollection TimeReceived TimeOtherTopography unknown / Newbmwk9201/26/2025 3:35 PM EST01/26/2025 3:36 PM EST Narrative Authorizing ProviderResult TypeResult StatusNicholas Shayla Jose DPMLAB BLOOD ORDERABLESFinal ResultPerforming OrganizationAddressCity/State/ZIP CodePhone Number [address] [address], [facility] [address] [place] [address] * ECG 12 lead (01/26/2025 3:28 PM EST)Specimen (Source)Anatomical Location / LateralityCollection Method / VolumeCollection TimeReceived Time01/26/2025 3:28 PM EST Narrative [facility] - 01/27/2025 9:16 AM EST [facility] ?[facility] ?[address] ? [place] [address] ? Electrocardiograph Report ? Signed ? Patient: Tim,Black E ?MR#: [id number] ? : 1975 ?Acct:[id number] ? Age/Sex: 49 / M ?ADM Date: 01/26/25 ? Loc: EL ?Room: ?Type: DEP CLI ?? Attending Dr: Gregory Jose DPM ? Ordering Provider: Gregory Jose DPM ?? Date of Service: 01/26/25/ ?? ECG/ECG 12 lead ECG: PST ? Copies to: ? Test Reason : ?? Blood Pressure : ?? */* ?? mmHG ?? Vent. Rate : ??82 BPM ? Atrial Rate : ??82 BPM ? P-R Int : 192 ms ?QRS Dur : ??92 ms ?QT Int : 386 ms ? P-R-T Axes : ??42 ??18 ??23 degrees ?QTcB Int : 450 ms ? Normal sinus rhythm ?? Moderate voltage criteria for LVH, may be normal variant ( R in aVL , Sokolow- Epperson ) ?? Confirmed by Cecilia Jacobsen ([id number]) on 01/27/2025 9:16:17 AM ? Referred By: ?Electronically Signed By: Cecilia Jacobsen ? Transcribed By: ? MUS ? Signed By ? Cecilia Jacobsen MD ? [id number] Procedure Note Cecilia Jacobsen MD - 01/27/2025 [facility] [address] [place] [address] [place] [address] Electrocardiograph Report Signed Patient: Black Dumont EMR#: [id number] : 1975Acct:[id number] Age/Sex: 49 / MADM Date: 01/26/25 Loc: Room:Type: [facility] Attending Dr: Gregory Jose DPShawn Ordering Provider: Gregory Jose DPM Date of Service: 01/26/25/ ECG/ECG 12 lead ECG: PST Copies to: Test Reason : Blood Pressure : */* mmHG Vent. Rate : 82 BPM Atrial Rate : 82 BPM P-R Int : 192 ms QRS Dur : 92 ms QT Int : 386 ms P-R-T Axes : 42 18 23 degrees QTcB Int : 450 ms Normal sinus rhythm Moderate voltage criteria for LVH, may be normal variant ( R in aVL ,Sokolow- Epperson ) Confirmed by Cecilia Jacobsen ([id number]) on 01/27/2025 9:16:17 AM Referred By: Electronically Signed By: Cecilia Jacobsen Transcribed By: MUS Signed By Cecilia Jacobsen MD [id number] Authorizing ProviderResult TypeResult StatusNicblanca Jose DPMECG ORDERABLES Final ResultPerforming OrganizationAddressCity/State/ZIP CodePhone Number [facility] [address] [place] [address], [place] * MR ankle left wo IV contrast (12/29/2024 5:06 PM EDT)Anatomical Region LateralityModalityLower Extremities, AnkleLeftMagnetic ResonanceSpecimen (Source)Anatomical Location / LateralityCollection Method / VolumeCollection TimeReceived Time12/29/2024 5:06 PM EDT Impressions 12/29/2024 5:18 PM EDT Significant edema is noted above the Achilles insertion involving the adjacent fat superior to the calcaneus extending laterally. ??This is nonspecific but may represents Achilles bursitis. ? The Achilles tendon is intact and normal in signal. ? There is a small tibiotalar joint effusion with a ganglion cyst projecting posteriorly. ? Fluid is noted along the posterior tibial tendon sheath suggesting tenosynovitis. ? Impression dictated by: Maurice Pereyra M.D. ??12/29/2024 5:15 PM ? Dictation Location: RADIO-PC-27 ? Transcribed By: ? PWS ?12/29/241714 ? Dictated By: ?Maurice Pereyra II, MD ?12/29/24 170 ? Signed By: <Electronically signed by Maurice Pereyra II, MD in OV> ? 12/29/24 171 Narrative 12/29/2024 5:18 PM EDT [facility] ?[facility] [address] [place] ?[address] ? [place] [address] ? MRI Report ? Signed ? Patient: Tim,Black E ?MR#: [id number] ? : 1975 ?Acct:[id number] ? Age/Sex: 49 / M ?ADM Date: 10/21/25 ? Loc: [facility] ?Room: ?Type: REG CLI ?? Attending Dr: Gregory Jose DPM ?? Copies to: Gregory Jose DPM ? Ordering Provider: Gregory Jose DPM ?? Date of Service: 12/29/24 ?? MR/MR ankle LT wo con: suspected partial tear of left Achilles tendon ? MR ankle LT wo con ??12/29/2024 2:03 PM ? SIGNS AND SYMPTOMS: Left ankle pain and swelling with pain greatest along the Achilles insertion ? PROTOCOL: Multiplanar multisequence MR images of the left ankle without IV contrast ? COMPARISON: None ? FINDINGS: ? Alignment: Normal. ? Fluid: ?? Tibiotalar: There is a small joint effusion. ??A ganglion cyst projects posteriorly measuring 1.5 x 0.8 0.9 cm in greatest dimension.. ?? Subtalar: No joint effusion. ? Medial: ?? Medial malleolus: Normal. ? Tendons: ?? Posterior tibial tendon: Fluid is noted along the posterior tibial tendon sheath suggesting tenosynovitis.. ?? Flexor digitorum longus: Intact. ?? Flexor hallucis longus: Intact. ? Ligaments: ?? Deltoid ligament complex - superficial: Intact. ?? Deltoid ligament complex - deep: Intact. ?? Spring (plantar calcaneo-navicular) ligament: Intact. ? Lateral: ?? Lateral malleolus: Normal. ?? Retromalleolar groove: Normal. ? Tendons: ?? Peroneus longus: Intact. ?? Peroneus brevis: Intact. ?? Peroneal retinaculum: Intact. ? Ligaments: ?? Anterior inferior tibiofibular (syndesmosis): Intact. ?? Posterior inferior tibiofibular (syndesmosis): Intact. ?? Anterior talofibular ligament: Intact. ?? Calcaneofibular ligament: Intact. ?? Posterior talofibular ligament: Intact. ? Posterior: ?? Posterior talus: Normal. ?? Intermalleolar ligament: Intact. ?? Achilles tendon: Intact. ??Significant edema is noted above the Achilles insertion involving the adjacent fat superior to the calcaneus extending laterally. ??This is nonspecific but may represents Achilles bursitis. ?? Plantar fascia: Intact. ? Anterior: ?? Tendons: ?? Anterior tibial tendon: Intact. ?? Extensor hallucis longus: Intact. ?? Extensor digitorum longus: Intact. ? Tibiotalar joint: Intact. ?? Subtalar joint: Intact. ? Bones (other than subarticular marrow): Normal. ?? Muscles: Normal ?? Tarsal tunnel: Normal. ?? Sinus tarsi: Normal. ? MR/MR ankle LT wo con ?? Procedure Note Maurice Pereyra MD - 12/29/2024 [facility] [address] [place] [address] [place] [address] MRI Report Signed Patient: Black Dumont EMR#: [id number] : 1975Acct:[id number] Age/Sex: 49 / MADM Date: 12/29/24 Loc: [facility] Room:Type: [facility] Attending Dr: Gregory Jose DPM Copies to: Gregory Jose DPM Ordering Provider: Gregory Jose DPM Date of Service: 12/29/24 MR/MR ankle LT wo con: suspected partial tearof left Achilles tendon MR ankle LT wo con 12/29/2024 2:03 PM SIGNS AND SYMPTOMS: Left ankle pain and swelling with pain greatest alongthe Achilles insertion PROTOCOL: Multiplanar multisequence MR images of the left ankle without IV contrast COMPARISON: None FINDINGS: Alignment: Normal. Fluid: Tibiotalar: There is a small joint effusion. A ganglion cyst projectsposteriorly measuring 1.5 x 0.8 0.9 cm in greatest dimension.. Subtalar: No joint effusion. Medial: Medial malleolus: Normal. Tendons: Posterior tibial tendon: Fluid is noted along the posterior tibial tendonsheath suggesting tenosynovitis.. Flexor digitorum longus: Intact. Flexor [...] Intact. Significant edema is noted above the Achillesinsertion involving the adjacent fat superior to the calcaneus extending laterally. This isnonspecific but may represents Achilles bursitis. Plantar fascia: Intact. Anterior: Tendons: Anterior tibial tendon: Intact. Extensor hallucis longus: Intact. Extensor digitorum longus: Intact. Tibiotalar joint: Intact. Subtalar joint: Intact. Bones (other than subarticular marrow): Normal. Muscles: Normal Tarsal tunnel: Normal. Sinus tarsi: Normal. MR/MR ankle LT wo con IMPRESSION: Significant edema is noted above the Achilles insertion involving theadjacent fat superior to the calcaneus extending laterally. This is nonspecific but may representsAchilles bursitis. The Achilles tendon is intact and normal in signal. There is a small tibiotalar joint effusion with a ganglion cyst projecting posteriorly. Fluid is noted along the posterior tibial tendon sheath suggestingtenosynovitis. Impression dictated by: Maurice Pereyra M.D. 12/29/2024 5:15 PM Dictation Location: [place] [address] Transcribed By: [facility] 12/29/241714 Dictated By: Maurice Pereyra II, MD 12/29/24 1706 Signed By: <Electronically signed by Maurice Pereyra II, MD inO> 12/29/241714 Authorizing ProviderResult TypeResult StatusNicholas A Brown DPMIMG MRI PROCEDURESFinal Result from Last 3 Months Insurance Care Teams Team MemberRelationshipSpecialtyStart DateEnd Date Jack Collins DO [address] [facility] [place] [address] PCP - GeneralInternal Medicine07/10/23
--- OUTSIDE RECORDS SUMMARY | 2025-02-01 08:16 | XMS_ITS | Clinical Summary ---
Author Organization [facility] Address [address] [place] [address] Phone Care Team Providers Care Equal Employment Opportunity Officer Name Role Phone Unavailable Primary Care Provider Unavailabl e Social History Tobacco UseTypesPacks/DayYears UsedDateSmoking Tobacco: Never AssessedSex and Gender InformationValueDate RecordedSex Assigned at BirthNot on fileLegal Sex Male05/21/2022 2:10 PM EDTGender IdentityNot on fileSexual OrientationNot on file Plan of Treatment Health MaintenanceDue DateLast DoneCommentsCT Ccdcffzjcvpy43/09/1976Colonoscopy 1975Colorectal Cancer Kghxbyyqd34/09/1976FIT-DNA (Cologuard)1975FIT 1975HIV Eaptuztgz19/09/1976Lipid Panel05/18/19758642Pvkvqkrsnncen44/09/1976 Yearly Adult Eeyvwsaa54/09/1976MMR Vaccines (1 of 1 - Standard series)05/17/1976 Hepatitis C Kuryvezzc52/09/1994Hepatitis B Vaccines (1 of 3 - 19+ 3-dose series) 05/17/1994DTaP/Tdap/Td Vaccines (1 - Tdap)05/17/1997Influenza Vaccine (#1) 5COVID-19 Vaccine (1 - 2024-26 season)2024Zoster Vaccines (1 of 2)05/17/2025HIB VaccinesAged OutNo longer eligible based on patient's age to complete this topicHPV VaccinesAged OutNo longer eligible based on patient's age to complete this topicHepatitis A VaccinesAged OutNo longer eligible based on patient's age to complete this topicIPV VaccinesAged OutNo longer eligible based on patient's age to complete this topicMeningococcal VaccineAged OutNo longer eligible based on patient's age to complete this topicPneumococcal Vaccine: Pediatrics and At-Risk Adult PatientsAged OutNo longer eligible based on patient's age to complete this topicRotavirus VaccinesAged OutNo longer eligible based on patient's age to complete this topic Insurance
--- OUTSIDE RECORDS SUMMARY | 2025-02-01 08:17 | XMS_ITS | Encounter Summary ---
Author Organization [facility] Address [address] [place] [address] Care Team Providers Care Undercoater Name Role Phone DennisJack Sofia SINGH Primary Care Provider [phone] Encounter Details DateTypeDepartmentCare Team (Latest Contact Info)Mstafsjepdx30/12/2025bstract [facility] [address] [facility] [address] [place] [address] Gregory Jose DPM [address] [facility] 5 [place] [address] Social History Tobacco UseTypesPacks/DayYears UsedDateSmoking Tobacco: NeverSmokeless Tobacco: Never Comments:None Alcohol UseStandard Drinks/WeekCommentsNot Currently0 (1 standard [...] Assigned at BirthMale 04/29/2024 2:06 PM ESTLegal NkrFvkl4105/23/2022 7:00 PM EDTGender IdentityMale 04/29/2024 2:06 PM ESTSexual EdjfvavzhkjHrunavzc09/19/2025 2:06 PM ESTdocumented as of this encounter Plan of Treatment DateTypeDepartmentCare Team (Latest Contact Info)Zybrbbzmwqj90/03/2025 3:20 PM ESTOffice Visit [facility] [address] [place] [phone] Gregory Jose, MER [address] [address] documented as of this encounter Visit Diagnoses Not on filedocumented in this encounter Care Teams Team MemberRelationshipSpecialtyStart DateEnd Date Jack Collins DO [address] [place] [address] PCP - GeneralInternal Medicine07/10/23documented as of this encounter
--- OUTSIDE RECORDS SUMMARY | 2025-02-01 08:17 | XMS_ITS | Encounter Summary ---
Author Organization [facility] Address [address] [place] [address] Care Team Providers Care Vacuum Filter Operator Name Role Phone Jack Collins Primary Care Provider [phone] Encounter Details DateTypeDepartmentCare Team (Latest Contact Info)Pxyfztwnaxy59/18/2025amboo flowsheet [facility] [address] [place] [address] Gregory Jose, DPShawn [address] [address] Social History Tobacco UseTypesPacks/DayYears UsedDateSmoking Tobacco: [...] Assigned at BirthMale 04/29/2024 2:06 PM ESTLegal EniSgbo8305/23/2022 7:00 PM EDTGender IdentityMale 04/29/2024 2:06 PM ESTSexual NdjpmzwdijaIdmkvwgx34/19/2025 2:06 PM ESTdocumented as of this encounter Plan of Treatment DateTypeDepartmentCare Team (Latest Contact Info)Mjgukupgfxr58/03/2025 3:20 PM ESTOffice Visit [facility] [address] [place] [address] Gregory Jose DPM [address] [address] documented as of this encounter Visit Diagnoses Not on filedocumented in this encounter Care Teams Team MemberRelationshipSpecialtyStart DateEnd Date Jack Collins DO [address] [place] [address] PCP - GeneralInternal Medicine07/10/23documented as of this encounter
--- OUTSIDE RECORDS SUMMARY | 2025-02-01 08:17 | XMS_ITS | Encounter Summary ---
Author Organization [facility] Address [address] [place] [address] Care Team Providers Care Line Director Name Role Phone Jack Collins Primary Care Provider [phone] Encounter Details DateTypeDepartmentCare Team (Latest Contact Info)Ovkuwrvgnho98/17/2025Orders Only [facility] [address] [place] [phone] Lidia Castro Preop examination Social History Tobacco UseTypesPacks/DayYears UsedDateSmoking Tobacco: NeverSmokeless [...] Assigned at BirthMale 04/29/2024 2:06 PM ESTLegal LvxGnos0205/23/2022 7:00 PM EDTGender IdentityMale 04/29/2024 2:06 PM ESTSexual EnofoefltqdEsyezvow92/19/2025 2:06 PM ESTdocumented as of this encounter Plan of Treatment DateTypeDepartmentCare Team (Latest Contact Info)Ffbkrkaynjl84/03/2025 3:20 PM ESTOffice Visit [facility] [address] [place] [address] Gregory Jose DPM [address] [address] NameTypePriorityAssociated DiagnosesOrder ScheduleBasic metabolic panelLab Routine Preop examination Expected: 01/25/2025 (Approximate), Expires: 03/27/2025BC and differentialLab Routine Preop examination Expected: 01/25/2025 (Approximate), Expires: 03/27/2025ECG 12 leadECGRoutine Preop examination Expected: 01/25/2025 (Approximate), Expires: 01/25/2026documented as of this encounter Visit Diagnoses Diagnosis Preop examination Unspecified pre-operative examination documented in this encounter Care Teams Team MemberRelationshipSpecialtyStart DateEnd Date Jack Collins DO [address] [facility] [place] [address] PCP - GeneralInternal Medicine07/10/23documented as of this encounter
--- OUTSIDE RECORDS SUMMARY | 2025-02-01 08:17 | XMS_ITS | Encounter Summary ---
Author Organization [facility] Address [address] [place] [address] Care Team Providers Care Pecan Grower Name Role Phone Jack Collins Primary Care Provider [phone] Encounter Details DateTypeDepartmentCare Team (Latest Contact Info)Cogezcrbywx68/13/2025Travel Social History Tobacco UseTypesPacks/DayYears UsedDateSmoking Tobacco: NeverSmokeless [...] Assigned at BirthMale 04/29/2024 2:06 PM ESTLegal BvwOzts6905/23/2022 7:00 PM EDTGender IdentityMale 04/29/2024 2:06 PM ESTSexual VxeclrqxuljAgvchaoi49/19/2025 2:06 PM ESTdocumented as of this encounter Plan of Treatment DateTypeDepartmentCare Team (Latest Contact Info)Mzdxnpwvqse66/03/2025 3:20 PM ESTOffice Visit [facility] [address] [place] [address] Gregory Jose, MER [address] [facility] 5 [place] [address] documented as of this encounter Visit Diagnoses Not on filedocumented in this encounter Care Teams Team MemberRelationshipSpecialtyStart DateEnd Date Jack Collins DO [address] [facility] [place] [address] PCP - GeneralInternal Medicine07/10/23documented as of this encounter
--- OUTSIDE RECORDS SUMMARY | 2025-02-01 08:17 | XMS_ITS | Encounter Summary ---
Author Organization [facility] Address [address] [place] [address] Care Team Providers Care Histology Teacher Name Role Phone DennisJack Sofia SINGH Primary Care Provider [phone] Encounter Details DateTypeDepartmentCare Team (Latest Contact Info)Gudkwmhfnmb43/18/2025External Result Encounter [facility] External Department Unsolicited Gregory Jose DPM [address] [address] Social History Tobacco UseTypesPacks/DayYears UsedDateSmoking Tobacco: NeverSmokeless [...] Assigned at BirthMale 04/29/2024 2:06 PM ESTLegal WwqWeef5105/23/2022 7:00 PM EDTGender IdentityMale 04/29/2024 2:06 PM ESTSexual AisnugvhyawXnshzssj20/19/2025 2:06 PM ESTdocumented as of this encounter Plan of Treatment DateTypeDepartmentCare Team (Latest Contact Info)Fopfvxetnqi98/03/2025 3:20 PM ESTOffice Visit [facility] [address] [place] [address] Gregory Jose DPM [address] [address] documented as of this encounter Procedures Procedure NamePriorityDate/TimeAssociated DiagnosisCommentsBASIC METABOLIC PANEL Ajuhggr0601/26/2025 3:35 PM EST documented in this encounter Results * (ABNORMAL) Basic metabolic panel (01/26/2025 3:35 PM EST)ComponentValueRef RangeTest MethodAnalysis TimePerformed AtPathologist HdcrbakxnVmjorcn973(H)70 - 100 mg/dL01/26/2025 5:21 PM [facility] CtrComment: Random Glucose Reference Range is dependent on time and content of last meal. Glucose of more than 200 mg/dL in a nonstressed, ambulatory subject supports the diagnosis of Diabetes Mellitus. ADA recommended reference range BTV868 - 25 mg/dL01/26/2025 5:21 PM [facility] CtrCREATININE 0.820.70 - 1.30 mg/dL01/26/2025 5:21 PM [facility] ESTIMATED GFR>60. 5:21 PM [facility] JbbNcbghd851 136 - 145 mmol/L103/28/2024 5:21 PM [facility] CtrPotassium, Bld3.83.5 - 5.1 mmol/L103/28/2024 5:21 PM [facility] Lcoapezb07722 - 107 mmol/L103/28/2024 5:21 PM [facility] Carbon Ijkygej80.7(H)21.0 - 31.0 mmol/L103/28/2024 5:21 PM [facility] CtrAnion Gap10.16.0 - 15. 5:21 PM [facility] CtrCalcium9.08.6 - 10.3 mg/dL01/26/2025 5:21 PM [facility] CtrSpecimen (Source)Anatomical Location / LateralityCollection Method / VolumeCollection TimeReceived TimeOtherTopography unknown / Vnutbfc0201/26/2025 3:35 PM EST01/26/2025 3:36 PM EST Narrative Authorizing ProviderResult TypeResult StatusNicblanca Jose DPMLAB BLOOD ORDERABLESFinal ResultPerforming OrganizationAddressCity/State/ZIP CodePhone Number [facility] [address] [place] [address], [facility] [address] [place] [address] documented in this encounter Visit Diagnoses Not on filedocumented in this encounter Care Teams Team MemberRelationshipSpecialtyStart DateEnd Date Jack Collins DO [address] [place] [address] PCP - GeneralInternal Medicine07/10/23documented as of this encounter
--- OUTSIDE RECORDS SUMMARY | 2025-02-01 08:17 | XMS_ITS | Encounter Summary ---
Author Organization [facility] Address [address] [place] [address] Care Team Providers Care Natural Resource Technician Name Role Phone DennisJack Sofia SINGH Primary Care Provider [phone] Encounter Details DateTypeDepartmentCare Team (Latest Contact Info)Ozqfyoifftb68/18/2025bstract [facility] [address] [facility] 120 [place] [address] Gregory Jose DPM [address] [facility] 5 [place] [address] Social History Tobacco UseTypesPacks/DayYears UsedDateSmoking [...] Assigned at BirthMale 04/29/2024 2:06 PM ESTLegal VvwXptz8205/23/2022 7:00 PM EDTGender IdentityMale 04/29/2024 2:06 PM ESTSexual WpdcywntunaFjwnlivs49/19/2025 2:06 PM ESTdocumented as of this encounter Plan of Treatment DateTypeDepartmentCare Team (Latest Contact Info)Vojwahwxlhk23/03/2025 3:20 PM ESTOffice Visit [facility] [address] [place] [address] Gregory Jose, MER [address] [address] documented as of this encounter Visit Diagnoses Not on filedocumented in this encounter Care Teams Team MemberRelationshipSpecialtyStart DateEnd Date Jack Collins DO [address] [place] [address] PCP - GeneralInternal Medicine07/10/23documented as of this encounter
--- OUTSIDE RECORDS SUMMARY | 2025-02-01 08:17 | XMS_ITS | Encounter Summary ---
Author Organization [facility] Address [address] [place] [address] Care Team Providers Care Equity Holder Name Role Phone DennisJack Sofia SINGH Primary Care Provider [phone] Encounter Details DateTypeDepartmentCare Team (Latest Contact Info)Cjndccofxyl07/18/2025bstract [facility] [address] [facility] [address] [place] [address] Gregory Jose DPM [address] [facility] 5 [place] [address] Social History Tobacco UseTypesPacks/DayYears UsedDateSmoking [...] Assigned at BirthMale 04/29/2024 2:06 PM ESTLegal YfuHiun7605/23/2022 7:00 PM EDTGender IdentityMale 04/29/2024 2:06 PM ESTSexual OtukffjqajaFrkxoqgq41/19/2025 2:06 PM ESTdocumented as of this encounter Plan of Treatment DateTypeDepartmentCare Team (Latest Contact Info)Qblfeqprdyf11/03/2025 3:20 PM ESTOffice Visit [facility] [address] [place] [address] Gregory Jose, MER [address] [address] documented as of this encounter Visit Diagnoses Not on filedocumented in this encounter Care Teams Team MemberRelationshipSpecialtyStart DateEnd Date Jack Collins DO [address] [place] [address] PCP - GeneralInternal Medicine07/10/23documented as of this encounter
--- OUTSIDE RECORDS SUMMARY | 2025-02-01 08:17 | XMS_ITS | Clinical Summary ---
Author Organization [facility] Address [id number] [address] [place] [address] Care Team Providers Care Surveillance Director Name Role Phone DennisJack Primary Care Provider [phone] Allergies No known active allergies Medications MedicationSigDispense QuantityRefillsLast FilledStart DateEnd DateStatus baclofen (LIORESAL) 20 mg tablet Take 1 tablet (20 mg total) by mouth nightly.Active benazepril (LOTENSIN) 10 mg tablet Take 1 tablet (10 mg total) by mouth once daily.Active metoprolol succinate XL (TOPROL-XL) 100 mg 24 hr tablet Take 100 mg by mouth daily.Active cholestyramine-aspartame (QUESTRAN LIGHT) 4 gram powder powder Take 4 g by mouth daily with breakfast.Active acetaminophen (TYLENOL) 500 mg tablet Take 1,300 mg by mouth daily as needed for pain (Takes Tylenol Arthritis). Active ALPRAZolam (XANAX) 0.5 mg tablet Take 1 tablet (0.5 mg total) by mouth nightly as needed.09/30/2020ctive atenoloL (TENORMIN) 50 mg tablet Take 50 mg by mouth daily.08/24/2020ctive escitalopram (LEXAPRO) 20 mg tablet Take 1 tablet (20 mg total) by mouth nightly.08/27/2020ctive rosuvastatin (CRESTOR) 20 mg tablet Take 1 tablet (20 mg total) by mouth nightly.09/25/2020ctive cetirizine (ZyrTEC) 10 mg tablet Active fremanezumab-vfrm (AJOVY AUTOINJECTOR) 225 mg/1.5 mL every 30 (thirty) days.Active omeprazole (PriLOSEC) 40 mg capsule 01/01/2022ctive rizatriptan (MAXALT) 5 mg tablet 2 tablets (10 mg total).02/12/2022ctive pregabalin (LYRICA) 75 mg capsule Indications:Lumbar 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 60 capsule ctive Active Problems ProblemNoted DateDiagnosed DateLumbar disc displacement without myelopathy 03/28/2022 Overview (03/28/2022): Added automatically from request for surgery [id number] Lumbar btrfifppeit59/16/2022Cervical spondylosis without xjukxaybwi49/17/2021 Overview (10/25/2020): Added automatically from request for surgery [id number] Lumbosacral spondylosis without djzaucfmaa43/06/2018 Overview (04/16/2017): Added automatically from request for surgery [id number] Disorder of wwnuyi3012/20/2016 Overview (12/20/2016): Added automatically from request for surgery [id number] DDD (degenerative disc disease), uujkje0611/26/2016 Family History Medical HistoryRelationNameCommentsCancerFatherBladderDiabetesFatherHeart diseaseFatherDiabetesMotherRelationNameStatusCommentsFatherAliveMotherAlive Social History Tobacco UseTypesPacks/DayYears UsedDateSmoking Tobacco: NeverSmokeless Tobacco: Never Tobacco Cessation:Counseling Given: Not Answered Alcohol UseStandard Drinks/WeekCommentsNo0 (1 standard drink = 0.6 oz pure alcohol)ChildcareAnswerDate MvqscdnqSkaogvdiaNeukdyu99/13/2019EmploymentAnswer Date YfqhbxeuUgpllpqplzMrmmweh65/13/2019Hunger ScreeningAnswerDate Recorded Within the past 12 months we worried whether our food would run out before we got money to buy more.Never True04/12/2023Within the past 12 months the food we bought just didn't last and we didn't have money to get more.Never True 06/20/2022urpose - LifeAnswerDate RecordedPurpose and direction in lifeUnknown 04/21/2020ex and Gender InformationValueDate RecordedSex Assigned at BirthMale 01/07/2021 9:19 AM EDTLegal CpjJlll7011/15/2016 11:20 AM EDTGender IdentityMale 01/07/2021 9:19 AM EDTSexual ZlresbjucjjOqnvotre13/30/2021 9:19 AM EDT Last Filed Vital Signs Vital SignReadingTime TakenCommentsBlood Hmyrjsaj417/8306/20/2022 11:05 AM EDT Tezdw494206/20/2022 11:05 AM HVSKmecbvkzwnq46.1 ??C (96.9 ??F)06/08/2022 8:47 AM EDTRespiratory Ulrb341906/08/2022 8:47 AM EDTOxygen Gfeerkxkcw79%06/20/2022 11:05 AM EDTInhaled Oxygen Concentration--Okxcus30.3 kg (212 lb 6.4 oz)06/20/2022 11:05 AM HXMAiglho852.5 cm (6' 3 )05/16/2022 2:58 PM ESTBody Mass Index26.55 05/16/2022 2:58 PM EST Plan of Treatment Health MaintenanceDue DateLast DoneCommentsDepression Ywpdokcyx35/09/1988Tobacco Dmnmuthfo82/09/1988DTaP,Tdap and Td Vaccines (1 - Tdap)05/17/1994Adult BMI Qdsqdznlg48OVID-19 Vaccine (4 - season)2024 02/11/2021, 04/13/2020, 03/24/2020Influenza Nozmbip12/01/23757103/25/2020 Medical Devices ImplantedTypeAreaManufacturerDevice IdentifierShelf Expiration DateModel / Serial / LotMeshMeshDescription:Right inguinal hernia Insurance Care Teams Team MemberRelationshipSpecialtyStart DateEnd Date Jack Collins DO [address] [place] [address] PCP - Ucmhvyo18/2/17
--- OUTSIDE RECORDS SUMMARY | 2025-02-01 08:17 | XMS_ITS | Patient Health Record ---
Author Organization [facility] [place] Address [address] [place] [address] Care Team Providers Care Transfer And Pumphouse Operator Name Role Phone None, Unknown or Primary Care Provider Unavailab le Reason For Referral No Information Plan Of Treatment Pending Test Test Name Order Date MRE ENTEROGRAPHY PROTOCOL 05/17/2022 Insurance Providers Payer Name Payer Address Payer Phone Subscriber Number Group Number Insured Name Patient Relationship to Insured Coverage Start Date Coverage End Date [employer]M ACCESS PPO PLUS LOCAL PLAN [address] [place] [address] [phone] [id number] [place] Self - patient is the insured 3
--- OUTSIDE RECORDS SUMMARY | 2025-02-01 08:17 | XMS_ITS | Encounter Summary ---
Author Organization [facility] Address [address] [place] [address] Care Team Providers Care Implement Mechanic Name Role Phone DennisJack Sofia SINGH Primary Care Provider [phone] Reason for Visit * ReasonOnset DateCommentsCasting For Braces Or Cxbapbebp99/10/2025 Encounter Details DateTypeDepartmentCare Team (Latest Contact Info)Mrdkutxaaji41/10/2025Telephone [facility] [address] [facility] [address] [place] [address] Gregory Jose DPM [address] [facility] 5 [place] [address] Casting For Braces Or Orthotics Social History Tobacco UseTypesPacks/DayYears UsedDateSmoking Tobacco: NeverSmokeless [...] 07/08/2023Sex and Gender InformationValueDate RecordedSex [facility] 04/29/2024 2:06 PM ESTLegal MetLrgl9305/23/2022 7:00 PM EDTGender IdentityMale 04/29/2024 2:06 PM ESTSexual PxztcsncezbRcjrzaqf82/19/2025 2:06 PM ESTdocumented as of this encounter Miscellaneous Notes * Telephone Encounter - TATIANA DAVILA - 01/26/2025 5:03 PM EST Scanned for orthotics and sent 01/26 * Telephone Encounter - Lidia Castro - 01/25/2025 4:10 PM EST Per call with [facility] at [phone] with Alonso, policy is active and [facility] and [employer] are in network. Patient has met 937.82 of 1400 individual deductible and has met 4,600 of 4,600 oop deductible. Code 36582 and 52430 does not require prior authorization. Reference#: [id number] PCP appt is 01-27 at 3:15 PST orders were sent to [facility] Surgery scheduled on both portals. Demographics, insurance card, office notes, and sx form uploadedto [facility] portal. * Telephone Encounter - TATIANA DAVILA - 01/20/2025 11:11 AM EST PATIENT NOTIFIED OF BENEFITS, COMING IN 01/26 FOR SCANNING * Telephone Encounter - TATIANA DAVILA - 01/20/2025 11:05 AM EST PER CALL W/ paola @ [facility] celine HAS AN ACTIVE PLAN WITH AN EFFECTIVE DATE OF 03/11/23 CUSTOM MOLDED ORTHOTICS CODE L3020 DED: $1400 IND/ $2800 FAM (FAM IS MET) OOP: $4600 IND / $9200 FAM ( IND IS MET) COIN: NO PRIOR AUTH: NO FREQ LIMIT: 2 IN 1 DAY EXCL: NO COVERED: 80 % ONCE DED IS MET/ 100% ONCE OOP IS MET- BOTH ARE MET REF# [id number] * Telephone Encounter - Gregory Jose DPM - 01/18/2025 4:48 PM EST HOSPITAL--[facility] DATE-- [place] PCP: [facility] DIAGNOSIS WITH PROCEDURES 1) left contracture of ankle with left Achilles tendinitis with percutaneous Achilles tenotomy withTenex device under ultrasonic guidance M24.522/M76.62 and 48369/92135 Approximate case length:30 min SPECIAL NEEDS FOR CASE-- : Tenex and US PT CRUTCH OR WALKER TRAINING NEEDED? NO WEIGHT BEARING STATUS-- WB with walking boot ultram * Telephone Encounter - Gregory Jose DPM - 01/18/2025 4:46 PM EST Please precertify for custom orthotics for the diagnosis of posterior tibial tendinitis and left Achilles tendinitis patient believes he may have hit deductible and will need accommodative device. Please pre-certify before preop visit in near future documented in this encounter Plan of Treatment DateTypeDepartmentCare Team (Latest Contact Info)Qlzbgulisty05/03/2025 3:20 PM ESTOffice Visit [facility] [address] [place] [address] Gregory Jose DPM [address] [address] documented as of this encounter Visit Diagnoses Diagnosis Left Achilles tendinitis- Primary Posterior tibial tendonitis of right leg documented in this encounter Care Teams Team MemberRelationshipSpecialtyStart DateEnd Date Jack Collins DO [address] [facility] [place] [address] PCP - GeneralInternal Medicine07/10/23documented as of this encounter
--- OUTSIDE RECORDS SUMMARY | 2025-02-01 08:17 | XMS_ITS | Encounter Summary ---
Author Organization [facility] Address [address] [place] [address] Care Team Providers Care Salesperson Fashion Accessories Name Role Phone DennisJack Sofia SINGH Primary Care Provider [phone] Encounter Details DateTypeDepartmentCare Team (Latest Contact Info)Ifkdxqwhjjf81/18/2025External Result Encounter [facility] External Department Unsolicited Gregory Jose DPM [address] [address] Social History Tobacco UseTypesPacks/DayYears UsedDateSmoking Tobacco: NeverSmokeless [...] Assigned at BirthMale 04/29/2024 2:06 PM ESTLegal JoeBjwm4405/23/2022 7:00 PM EDTGender IdentityMale 04/29/2024 2:06 PM ESTSexual MgnishmnkmaJtyafxyl71/19/2025 2:06 PM ESTdocumented as of this encounter Plan of Treatment DateTypeDepartmentCare Team (Latest Contact Info)Sfmkdcuqdga33/03/2025 3:20 PM ESTOffice Visit [facility] [facility] [address] [facility] [place] [address] Gregory Jose, DPM [address] [facility] [address] [place] [address] documented as of this encounter Procedures Procedure NamePriorityDate/TimeAssociated DiagnosisCommentsECG 12-LEAD01/26/2025 3:28 PM EST documented in this encounter Results * ECG 12 lead (01/26/2025 3:28 PM EST)Specimen (Source)Anatomical Location / LateralityCollection Method / VolumeCollection TimeReceived Time01/26/2025 3:28 PM EST [facility] - 01/27/2025 9:16 AM EST [facility] ?[facility] [place] ?[address] ? [place] [address] ? Electrocardiograph Report ? Signed ? Patient: Tim,Black E ?MR#: [id number] ? : 1975 ?Acct:[id number] ? Age/Sex: 49 / M ?ADM Date: 01/26/25 ? Loc: EL ?Room: ?Type: DEP CLI ?? Attending Dr: Gregory Jose DPM ? Ordering Provider: NANCY ArriolaM ?? Date of Service: 01/26/25/ ?? ECG/ECG [...] Epperson ) ?? Confirmed by Cecilia Jacobsen ([id number]) on 01/27/2025 9:16:17 AM ? Referred By: ?Electronically Signed By: Cecilia Jacobsen ? Transcribed By: ? MUS ? Signed By ? Cecilia Jacobsen MD ? 5 0916 Procedure Note Cecilia Jacobsen MD - 01/27/2025 [facility] [place] [address] Electrocardiograph Report Signed Patient: Black Dumont EMR#: [id number] : 1975Acct:[id number] Age/Sex: 49 / MADM Date: 01/26/25 Loc: Room:Type: [facility] Attending Dr: Gregory Jose DPM Ordering Provider: Gregory Jose [...] ,Sokolow- Epperson ) Confirmed by Cecilia Jacobsen ([id number]) on 01/27/2025 9:16:17 AM Referred By: Electronically Signed By: Cecilia Jacobsen Transcribed By: MUS Signed By Cecilia Jacobsen MD 5 [id number] Authorizing ProviderResult TypeResult StatusNicholmarvel Jose DPMECG ORDERABLES Final ResultPerforming OrganizationAddressCity/State/ZIP CodePhone Number [facility] [address] [place] [address], documented in this encounter Visit Diagnoses Not on filedocumented in this encounter Care Teams Team MemberRelationshipSpecialtyStart DateEnd Date Jack Collins DO [address] [place] [phone] PCP - GeneralInternal Medicine07/10/23documented as of this encounter
--- OUTSIDE RECORDS SUMMARY | 2025-02-01 08:17 | XMS_ITS | Encounter Summary ---
Author Organization [facility] Address [address] [place] [address] Care Team Providers Care Quality Control Clerk Name Role Phone DennisJack Sofia SINGH Primary Care Provider [phone] Encounter Details DateTypeDepartmentCare Team (Latest Contact Info)Vwuvakltbol81/18/2025External Result Encounter [facility] External Department Unsolicited Gregory Jose DPM [address] [address] Social History Tobacco UseTypesPacks/DayYears UsedDateSmoking Tobacco: NeverSmokeless [...] Assigned at BirthMale 04/29/2024 2:06 PM ESTLegal EitKzpb6705/23/2022 7:00 PM EDTGender IdentityMale 04/29/2024 2:06 PM ESTSexual RlbekrzqxwgUgqtjebm46/19/2025 2:06 PM ESTdocumented as of this encounter Plan of Treatment DateTypeDepartmentCare Team (Latest Contact Info)Shgtzbjqcyb22/03/2025 3:20 PM ESTOffice Visit [facility] [place] [facility] [address] [place] [address] Gregory Jose, DPM [address] [address] documented as of this encounter Procedures Procedure NamePriorityDate/TimeAssociated DiagnosisCommentsCBC WITH AUTO EKHJNHVRFLXVOnhzbos21/18/2025 3:35 PM EST documented in this encounter Results * CBC auto differential (01/26/2025 3:35 PM EST)ComponentValueRef RangeTest MethodAnalysis TimePerformed AtPathologist SignatureWBC6.74.1 - 10.5 [CFU]/mL 01/26/2025 5:04 PM [facility] CtrUNCORRECTED WHITE BLOOD COUNT6.74.1 - 10.5 10*3/uL01/26/2025 5:04 PM [facility] RBC4.683.90 - 5.60 10*6/uL01/26/2025 5:04 PM [facility] EYJDOZJCEW29.913.0 - 17.0 g/dL01/26/2025 5:04 PM [facility] BiwOPAWXQLGJX50.638.8 - 50.0 %01/26/2025 5:04 PM [facility] KedKUF88.683.5 - 101 fL01/26/2025 5:04 PM [facility] OfgXFR08.727.5 - 35.2 pg01/26/2025 5:04 PM [facility] XshCSPW29.332.5 - 35.6 g/dL01/26/2025 5:04 PM [facility] CtrRED CELL DISTRIBUTION WIDTH, RDW13.712.0 - 14.8 %01/26/2025 5:04 PM [facility] CtrPLATELET XWPJL453185 - 450 10*3/uL01/26/2025 5:04 PM [facility] CtrMEAN PLATELET VOLUME, MPV8.86.6 - 10.1 fL01/26/2025 5:04 PM [facility] CtrNEUTROPHILS, %54.3. %01/26/2025 5:04 PM [facility] CtrLYMPHOCYTES, %33.2. % 01/26/2025 5:04 PM [facility] CtrMONOCYTE/MACROPHAGE, %7.6. %01/26/2025 5:04 PM [facility] CtrEOSINOPHILS, %4.4. % 01/26/2025 5:04 PM [facility] CtrBASOPHILS, %0.5. % 01/26/2025 5:04 PM [facility] CtrNRBC0.10 - 0.5 /100{WBC} 01/26/2025 5:04 PM [facility] CtrNEUTROPHILS3.71.8 - 7.7 10*3/uL01/26/2025 5:04 PM [facility] CtrLYMPHOCYTES2.21.00 - 4.8 10*3/uL01/26/2025 5:04 PM [facility] CtrMONOCYTES0.5 0.0 - 0.8 10*3/uL01/26/2025 5:04 PM [facility] EOSINOPHILS0.30.0 - 0.45 10*3/uL01/26/2025 5:04 PM [facility] CtrBASOPHILS0.00.0 - 0.2 10*3/uL01/26/2025 5:04 PM [facility] CtrSpecimen (Source)Anatomical Location / Laterality Collection Method / VolumeCollection TimeReceived TimeBlood (Blood)01/26/2025 3:35 PM EST01/26/2025 3:36 PM EST Narrative Authorizing ProviderResult TypeResult StatusNicholmarvel Jose DPMLAB BLOOD ORDERABLESFinal ResultPerforming OrganizationAddressCity/State/ZIP CodePhone Number REPLACED BY [facility] [address] [place] [address], [facility] [address] [place] [address] documented in this encounter Visit Diagnoses Not on filedocumented in this encounter Care Teams Team MemberRelationshipSpecialtyStart DateEnd Date Jack Collins DO [address] [place] [phone] PCP - GeneralInternal Medicine07/10/23documented as of this encounter
--- OUTSIDE RECORDS SUMMARY | 2025-02-01 08:17 | XMS_ITS | Encounter Summary ---
Author Organization [facility] Address [address] [place] [address] Care Team Providers Care Tech Intern Name Role Phone Jack Collins Primary Care Provider [phone] Encounter Details DateTypeDepartmentCare Team (Latest Contact Info)Uwnvodzezjx71/10/2025amboo flowsheet [facility] [address] [place] [address] Gregory Jose, DPShawn [address] [address] Social History Tobacco UseTypesPacks/DayYears UsedDateSmoking [...] Assigned at BirthMale 04/29/2024 2:06 PM ESTLegal WnnLbrb2405/23/2022 7:00 PM EDTGender IdentityMale 04/29/2024 2:06 PM ESTSexual ApwlibydlqxPwppujfx43/19/2025 2:06 PM ESTdocumented as of this encounter Plan of Treatment DateTypeDepartmentCare Team (Latest Contact Info)Echvkxukfhq84/03/2025 3:20 PM ESTOffice Visit [facility] [address] [place] [address] Gregory Jose DPM [address] [address] documented as of this encounter Visit Diagnoses Not on filedocumented in this encounter Care Teams Team MemberRelationshipSpecialtyStart DateEnd Date Jack Collins DO [address] [place] [address] PCP - GeneralInternal Medicine07/10/23documented as of this encounter
--- OUTSIDE RECORDS SUMMARY | 2025-02-01 08:20 | XMS_ITS | CCD ---
Author Organization [facility] Inform ion [facility] Care Team Providers Care Anesthesiology Resident Name Role Phone Alvino Rudolph Unavailable Sandie Luther Unavailable DO Jack Ortega Primary Care Provider DO Geo Ray Attending Provider MD Sandie Luther Attending Provider [phone] Alvino Rudolph Unavailable Jack Ortega DO Primary Care Provider SANDIE LUTHER Attending Unavailable Jack Ortega Primary Care Unavailable SANDIE LUTHER Admitting Unavailable SANDIE LUTHER Attending Unavailable Jack Ortega Primary Care Unavailable SANDIE LUTHER Admitting Unavailable Alvino Rudolph Unavailable Jack Ortega DO Primary Care Provider DO Jack Ortega Primary Care Provider DO Jack Ortega Attending Provider [phone] Bridget Laird Unavailable Unavailable Raad Cline Unavailable Unavailable NON STAFF Attending Provider Unavailable Kirsty Glez Unavailable Unavailable Jack Ortega Unavailable JESSICA, LEE ANN Admitting Unavailable JESSICA, LEE ANN Consulting Unavailable JESSICA, LEE ANN Attending Unavailable JORDAN, DR TORIBIO Primary Care Unavailable JORDAN, DR TORIBIO Admitting Unavailable BALL, DR TORIBIO Primary Care Unavailable BALL, DR TORIBIO Attending Unavailable BALL, DR TORIBIO Attending Unavailable BALL, DR TORIBIO Admitting Unavailable BALL, DR TORIBIO Primary Care Unavailable BALL, DR TORIBIO Consulting Unavailable JESSICA, LEE ANN Admitting Unavailable JESSICA, LEE ANN Consulting Unavailable JESSICA, LEE ANN Attending Unavailable JORDAN, DR TORIBIO Primary Care Unavailable BEDDO NWETON CHRISTIAN Referring Unavailable UNKNOWN, PCP Primary Care Unavailable Cline, Dr. Raad Smith Attending Unavai labsteff Jorge, Dr. Devin Gutierres Attending Unavailabl e UNKNOWN, PCP Primary Care Unavailable Son, Dr. Raad Smith Referring Unavai labsteff Jorge, Dr. Devin Gutierres Attending Unavailabl e UNKNOWN, PCP Primary Care Unavailable Son, Dr. Raad Smith Referring Unavai labsteff PCP, Pt States None Referring Unavailable UNKNOWN, PCP Primary Care Unavailable Son, Dr. Raad Smith Attending Janyvasu labsteff UNKNOWN, PCP Primary Care Unavailable UNKNOWN, PCP Referring Unavailable Cline, Dr. Raad Smith Attending Unavai labsteff Newton, Dr. Kirsty Boyd Attending Unavaila ble UNKNOWN, PCP Referring Unavailable UNKNOWN, PCP Primary Care Unavailable Klaudia LEGER, Alvino Unavailable Jack Ortega DO Primary Care Provider DO aJck Ortega Primary Care Provider [phone] MD Mil Agarwal Attending Provider DO Jack Ortega Referring Provider DO Jack Ortega Attending Provider [phone] Jack Ortega MD Primary Care Provider Layne LEGER, Feliciano Chapa Attending Unavailab le Ball , [facility] Primary Care Unavail able Feliciano Tillman MD Attending Unavailab le Ball , [facility] Care Unavail able Feliciano Tillman MD Attending Unavailab le Ball , [facility] Primary Care Unavail able Feliciano Tillman MD Attending Unavailab le Ball , [facility] Primary Care Unavail able Feliciano Tillman MD Admitting Unavailab Feliciano Reynolds MD Attending Unavailab le Ball , [facility] Primary Care Unavail able Bonnie LEGER, Guero Larose Consulting Unavail able Feliciano Tillman MD Attending Unavailab le Ball , [facility] Primary Care Unavail able Feliciano Tillman MD Attending Unavailab le Ball DO, [facility] Primary Care Unavail able Heaven LEGER, Alejandro Robins Attending Unavail able Jordan SINGH, [facility] Primary Care Unavail able Feliciano Tillman MD Attending Unavailab le Ball , [facility] Primary Care Unavail able Feliciano Tillman MD Attending Unavailab le Ball DO, [facility] Primary Care Unavail able Feliciano Tillman MD Attending Unavailab le Ball DO, Jack Edward Primary Care Unavail able Layne LEGER, Feliciano Chapa Attending Unavailab le Ball DO, Jack Edward Primary Care Unavail able Layne LEGER, Feliciano Chapa Attending Unavailab le Ball DO, Jack Edward Primary Care Unavail able Aj YOUSSEF Attending Unavailable Jordan LEGER, Jack Black Primary Care Provider Ball DO, Jack Primary Care Provider Ball DO, Jack Attending Provider Gita Valentin APRN Attending Provider Son FINN-EVENT ATTENDANT-CLeslye Attending Provider Ball DO, Jack E Primary Care Provider Ball DO, Jack E Primary Care Provider SHYANNE RODRÍGUEZ Attending Unavailable JACK ORTEGA Primary Care Unavailable SHYANNE RODRÍGUEZ Attending Unavailable JACK ORTEGA E Primary Care Unavailable Alvino Rudolph MD Unavailable Ball DO, Jack E Primary Care Provider Ball DO, Jack Primary Care Provider Ball DO, Jack Attending Provider Ball DO, Jack Primary Care Provider Fazal DPMGregory Attending Provider Gregory Diehl Attending Unavailable Zena Diehls Shayla Admitting Unavailable Jordan Jack Primary Care Unavailable Ball , Jack Primary Care Provider Ball , Jack Attending Provider Mil Agarwal MD Attending Provider LESLYE CLINE Attending Unavailable BROWN GREGORY A Attending Unavailable BROWN GREGORY A Attending Unavailable BROWN GREGORY A Attending Unavailable BROWN GREGORY A Attending Unavailable BROWN GREGORY A Attending Unavailable BROWN GREGORY A Attending Unavailable ILSA PITTMAN Attending Unavailable FAZAL GREGORY A Referring Unavailable BRJEANETH GRAVES Attending Unavailable ROBERTO DIEHLOLAS A Referring Unavailable BRJEANETH GRAVES Attending Unavailable FAZAL GREGORY A Referring Unavailable BROWN GREGORY A Attending Unavailable BRJEANETH GRAVES Attending Unavailable BROWN GREGORY A Referring Unavailable JEANETH FARRAR Attending Unavailable RGEGORY DIEHL Referring Unavailable JEANETH FARRAR Attending Unavailable GREGORY DIEHL Referring Unavailable GREGORY DIEHL Attending Unavailable JENNIFER PATIÑO Attending Unavailable GREGORY DIEHL Referring Unavailable GREGORY DIEHL Attending Unavailable Allergies Allergy ClassificationReported Allergen(s)Allergy TypeDate of OnsetReaction(s) Facility (7 sources)No AlertPropensity to adverse reactions to [id number]. of Dermatology (20 sources)Codeine; Translations: [codeine]Drug Zvbllwt22-15-9364Ykpqh, Itching, Rash, GI Upset, IntoleranceNOMS Healthcare (1 source)HYDROcodoneDrug Bqbprrq71-87-3386DgqmiflsuKindred Healthcare Repository Medications Current Medications MedicationDrug Class(es)DatesSig (Normalized)Sig (Original)Accu-Chek Advantage Meter (20 sources)Start: 70-02-8942Quuci: 40-72-9397Xnnf-Chek Advantage Meter use as directed for 365 days July, Activeacetaminophen 500 mg oral tablet (14 sources)acetaminophen (TYLENOL) 500 mg tablet Take 1,300 mg by mouth. Active Comment on above:Take 1,300 mg by mouth.amitriptyline hydrochloride 25 mg oral tablet (20 sources)Tricyclic AntidepressantStart: 57-32-5395wmau 0.5-1 tablets by mouth once daily at bedtimeamitriptyline (Elavil) 25 MG tablet Indications: Obstructive sleep apnea (adult) (pediatric) TAKE 1/2 TO 1 TABLET BY MOUTH EVERY DAY AT BEDTIME 90 tablet 3 01/27/2024 Activebaclofen 20 mg oral tablet (20 sources)gamma-Aminobutyric Acid-ergic AgonistStart: 07-31-2023 End: 66-18-2692bgbo 1 tablet by mouth once daily at bedtimeBaclofen 20 mg tablet Active 0 .ROUTE .COMPLEX 90 3 July 28, 2024 7:42am TAKE 1 TABLET BY MOUTH AT BEDTIME Complies with drug therapyStart: 12-05-2021 End: 86-96-8079bepe 1 tablet by mouth once daily at bedtimeBaclofen 20 mg tablet Discontinued 20 MG PO Daily at bedtime May 28, 2023 12:00am July 31, 2023 2:56pmStart: 03-27-2019 End: 85-81-3051daid 1 tablet by mouth at bedtimeBaclofen 20 mg tablet Discontinued 20 MG PO Bedtime March 27, 2019 1:00am July 18, 2021 11:38am Baclofen ActiveComment on above:TAKE 1 TABLET BY MOUTH EVERYDAY AT BEDTIME benazepril hydrochloride 20 mg / hydroCHLOROthiazide 25 mg oral tablet (20 sources)Thiazide Diuretic, Angiotensin Converting Enzyme InhibitorStart: 01-97-6087khua 1 tablet by mouth once dailyBenazepril-Hydrochlorothiazide 20-25 mg tablet Active 0 .ROUTE .COMPLEX 90 3 June 07, 2024 10:09am TAKE 1 TABLET BY MOUTH EVERY DAY FOR 90 DAYS Complies with drug therapyStart: 07-10-2023 End: 33-04-6859pxup 1 tablet by mouth once daily in the morningBenazepril- Hydrochlorothiazide 20-25 mg tablet Discontinued 1 TAB PO Every morning November 25, 2023 12:00am June 07, 2024 10:09amStart: 06-20-2023 End: 24-61-1459ywsy 1 tablet by mouth once dailyBenazepril-Hydrochlorothiazide 20-12.5 mg tablet Discontinued 0 .ROUTE .COMPLEX 90 1 June 20, 2023 7:46pm July 10, 2023 3:21pm TAKE 1 TABLET BY MOUTH DAILYStart: 05-29-2023 End: 88-49-0202jvof 1 tablet by mouth once dailyBenazepril-Hydrochlorothiazide 20-12.5 mg tablet Discontinued 1 TAB PO Daily May 29, 2023 12:00am June 20, 2023 7:47pmbenazepril/hydrochlorothiazide (LOTENSIN HCT ORAL) Active benazepril/hydrochlorothiazide (LOTENSIN HCT ORAL)Blood-Glucose Meter,Continuous (Freestyle Maicol 3 [place]) misc (5 sources)Start: 23-90-9395Luqgq-Glucose Meter,Continuous (Freestyle Maicol 3 [place]) misc Active 0 .Route September 20, 2023 12:00am As directedBlood-Glucose Sensor (Freestyle Maicol 3 Plus Sensor) device (17 sources)Start: 44-23-8658Dvlag-Glucose Sensor (Freestyle Maicol 3 Plus Sensor) device Active 0 .ROUTE .COMPLEX 1 December 16, 2024 9:53am Type 2 diabetes mellitus with hyperglycemia Type 2 diabetes mellitus with hyperglycemia 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 CHANGE EVERY 15 DAYS DIRECTEDStart: 34-57-8926Xwvtr-Glucose Sensor (Freestyle Maicol 3 Plus Sensor) device Active 0 .ROUTE .COMPLEX 1 December 9:53am CHANGE EVERY 15 DAYS DIRECTEDStart: 05-30-2024 End: 49-61-5749Ekowv-Glucose Sensor (Freestyle Maicol 3 Plus Sensor) device Discontinued 0 .ROUTE .COMPLEX 1 May 30, 2024 8:44am December 16, 2024 9:53am Type 2 diabetes mellitus with hyperglycemia Type 2 diabetes mellitus with hyperglycemia 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 CHANGE EVERY 15 DAYS DIRECTEDStart: 05-30-2024 End: 93-78-6107Vevqt-Glucose Sensor (Freestyle Maicol 3 Plus Sensor) device Discontinued 0 .ROUTE .COMPLEX 1 May 30, 2024 8:44am December 16, 2024 9:53am CHANGE EVERY 15 DAYS DIRECTEDStart: 54-36-8471Fwoxa-Glucose Sensor (Freestyle Maicol 3 Plus Sensor) device Active 0 .ROUTE .COMPLEX 1 May 30, 2 025 8:44am CHANGE EVERY 15 DAYS DIRECTEDStart: 12-08-2023 End: 11-80-4901Kndhc-Glucose Sensor (Freestyle Maicol 3 Plus Sensor) device Discontinued 0 .ROUTE .MEDSUPPLY 1 December 08, 2023 12:00am May 30, 2024 8:45am Type 2 diabetes mellitus with hyperglycemia Type2 diabetes mellitus with hyperglycemia skilled nursing (current) use of insulin As directedStart: 12-08-2023 End: 68-10-2274Wuweh-Glucose Sensor (Freestyle Maicol 3 Plus Sensor) device Discontinued 0 .ROUTE .MEDSUPPLY December 08, 2023 12:00am May 30, 2024 8:45am As directedStart: 48-39-1999Ceqhw-Glucose Sensor (Freestyle Maicol 3 Plus Sensor) device Active 0 .ROUTE .MEDSUPPLY 1 December 08, 2023 12:00am As directedBlood-Glucose,Yarder Engineer,Cont (Freestyle Maicol 3 [place]) misc (6 sources)Start: 43-98-5322Hmjmn-Glucose,Yarder Engineer,Cont (Freestyle Maicol 3 [place]) misc Active 0 .Route 1 0 September 20, 2023 12:00am Diabetes mellitus with hyperglycemia Type 2 diabetes mellitus with hyperglycemia As directedStart: 24-53-3811Twuxh-Glucose,Yarder Engineer,Cont (Freestyle Maicol 3 [place]) misc Active 0 .Route 1 September 20, 2023 12:00am As hr buPROPion hydrochloride 200 mg extended release oral tablet (20 sources)AminoketoneStart: 36-79-1422azvz 1 tablet by mouth once daily Wellbutrin SR 200 MG 12 hr tablet Take 200 mg by mouth Daily 02/24/2024 Active Start: 46-43-5662wteo 1 tablet by mouth every twelve hoursBupropion Hcl 200 mg tablet sustained-release 12 hr Active 200 MG PO September 29, 2024 12:00am Complies with drug therapyDulaglutide (20 sources)GLP-1 Receptor AgonistStart: 32-35-0158Hfcsdllhevu 4.5 mg/0.5 mL pen injector Active 4.5 MG SUBCUT every week 6 December 30, 2024 7:06pm Complies with drug therapyStart: 12-23-2023 End: 46-73-3271Xjnlekxgcdz 4.5 mg/0.5 mL pen injector Discontinued 4.5 MG SUBCUT every week 6 December 23, 2023 3:55pm December 30, 2024 7:06pmStart: 97-68-8698Gdoch: 24-87-3865Mjpbcqkfejk 4.5 mg/0.5 mL pen injector Active 4.5 MG SUBCUT every week 6 December 23, 2023 3:55pm Complies with drug therapy Start: 89-53-4663Rykpe: 40-14-5568luxxfh 4.5 mg by subcutaneous injection every weekDulaglutide Active 4.5 MG SUBCUT every week 6 December 23, 2023 3:55pm Start: 12-23-2023 End: 46-12-9853Qjbsjwuyvtq 4.5 mg/0.5 mL pen injector Discontinued 4.5 MG SUBCUT every week 6 90 December 23, 2023 3:02pm December 23, 2023 3:55pmStart: 12-23-2023 End: 51-08-8995Wpcievymsgs 4.5 mg/0.5 mL pen injector Discontinued 4.5 MG SUBCUT every week 6 December 23, 2023 3:02pm December 23, 2023 3:55pmStart: 12-23-2023 End: 11-97-0383geddrx 4.5 mg by subcutaneous injection every weekDulaglutide Discontinued 4.5 MG SUBCUT every week 6 December 23, 2023 3:02pm December 2243:55pmStart: 10-29-2023 End: 99-88-6384Pjzglqxxftd 3 mg/0.5 mL pen injector Discontinued 3 MG SUBCUT every week 6 90 October 29, 2023 10:09am December 23, 2023 3:04pmStart: 10-29-2023 End: 52-75-5848Wcnbssfbxhj 3 mg/0.5 mL pen injector Discontinued 3 MG SUBCUT every week 6 October 29, 2023 10:09am December 23, 2023 3:04pmStart: 10-29-2023 End: 58-05-1404adlkpm 3 mg by subcutaneous injection every weekDulaglutide Discontinued 3 MG SUBCUT every week 6 October 29, 2023 10:09am December 23, 2023 3:04pmStart: 35-91-5264ypkbdj 3 mg by subcutaneous injection every week Dulaglutide Active 3 MG SUBCUT every week 6 October 29, 2023 10:09amStart: 08-27-2023 End: 86-69-2945Ccaghygzcmu (Trulicity) 1.5 mg/0.5 mL pen injector Discontinued 1.5 MG SUBCUT every week 6 90 0 October 28, 2023 1:30pm October 29, 2023 10:10amStart: 08-27-2023 End: 12-19-9884Qgtfyddtmgr 1.5 mg/0.5 mL pen injector Discontinued 3 MG SUBCUT every week 12 84 0 August 27, 2023 10:36am August 27, 2023 11:25amStart: 08-27-2023 End: 56-78-9166xowedj 3 mg by subcutaneous injection every weekDulaglutide Discontinued 3 MG SUBCUT every week 12 84 August 27, 2023 10:36am August 27, 2023 11:25amStart: 08-20-2023 End: 17-07-0192Smlzrdbrstm 3 mg/0.5 mL pen injector Discontinued 3 MG SUBCUT every week 6 84 0 August 20, 2023 6:07pm August 27, 2023 10:36amStart: 08-20-2023 End: 64-97-9109Xyxkohebqtk 3 mg/0.5 mL pen injector Discontinued 3 MG SUBCUT every week 6 84 August 20, 2023 6:07pm August 27, 2023 10:36amStart: 08-20-2023 End: 12-50-3734czhjnz 3 mg by subcutaneous injection every weekDulaglutide Discontinued 3 MG SUBCUT every week 6 August 20, 2023 6:07pm August 27, 2023 10:36amStart: 08-12-2023 End: 85-20-9387Rqqmzqbvmya 3 mg/0.5 mL pen injector Discontinued 1.5 MG SUBCUT every week 1 0 August 12, 2023 1:19pm August 20, 2023 6:08pmStart: 08-12-2023 End: 85-34-1230Qgdyaskajkn 3 mg/0.5 mL pen injector Discontinued 1.5 MG SUBCUT every week 04 07August 12, 2023 1:19pm August 20, 2023 6:08pmStart: 08-12-2023 End: 43-70-0439bncvtl 1.5 mg by subcutaneous injection every weekDulaglutide Discontinued 1.5 MG SUBCUT every week 04 07August 12, 2023 1:19pm August 20, 2023 6:08pmStart: 07-10-2023 End: 06-66-8724Gvuerrfwwzq 1.5 mg/0.5 mL pen injector Discontinued 1.5 MG SUBCUT every week 2 July 10, 2023 3:23pm August 12, 2023 1:19pmStart: 07-09-2023 End: 20-69-0911Yifowxifysa 1.5 mg/0.5 mL pen injector Discontinued 0.75 MG SUBCUT every week 2 July 09, 2023 6:49am July 10, 2023 3:23pmStart: 07-09-2023 End: 79-60-8932ptletn 0.75 mg by subcutaneous injection every weekDulaglutide Discontinued 0.75 MG SUBCUT every week 2 July 09, 2023 6:49am July 10, 2023 3:23pmStart: 06-12-2023 End: 05-50-5270Kzfgilyuqda (Trulicity) 0.75 mg/0.5 mL pen injector Discontinued 0.75 MG SUBCUT every week 2 June 12, 2023 12:00am July 09, 2023 6:49am Dulaglutide (TRULICITY SC) Inject under the skin ActiveDulaglutide 4.5 MG/0.5ML solution auto-injector (20 sources)inject 4.5 mg by subcutaneous injection every week, then inject 4.5 mg by subcutaneous injection every weekDulaglutide 4.5 MG/0.5ML solution auto- injector Inject 4.5 mg under the skin 1 (one) time per week INJECT 4.5 MG (0.5 ML) SUBCUTANEOUSLY ONCE EVERY WEEK FOR 90 DAYS ActiveFreeStyle Maicol 2 [place]rie Systm (15 sources)Start: 66-50-1769LqcuBzqnt Maicol 2 [place] Systm Use to test home BS transcutaneous 6-8x daily for 365 days Aug, ActiveStart: 08-28-2022 FreeStyle Maicol 2 Sensor - (15 sources)Start: 95-26-6351NkozQetyh Maicol 2 Sensor - Use to test home BS transcutaneous 6-8x daily for 30 days Aug, ActiveStart: .5 ml fremanezumab-vfrm 150 mg/ml auto-injector (20 sources)fremanezumab-vfrm (AJOVY AUTOINJECTOR) 225 mg/1.5 mL auto-injector ActiveAjovy 225 MG/1.5ML as directed Subcutaneous monthly Active1 ml galcanezumab-gnlm 120 mg/ml auto-injector (20 sources)Start: 04-06-2024 End: 16-56-7558hryynb 120 mg by subcutaneous injection every monthEMGALITY PEN 120 mg/mL pen Inject 120 mg subcutaneously once every month. 04/06/2024 04/01/2025 ActiveStart: 01-07-2024 End: 48-65-1409kmebxiyvdewb (Emgality) 120 MG/ML auto-injector Indications: Chronic migraine with aura without status migrainosus, not intractable Inject 1 Syringe (120 mg) under the skin every 30 (thirty) days 1 mL 11 04/06/2024 04/01/2025 ActiveStart: 51-46-5155ndihaz 120 mg by subcutaneous injection every monthGalcanezumab-Gnlm 120 mg/mL syringe Active 120 MG SUBCUT every month May 28, 2023 12:00am migraine prevention Complies with drug therapyStart: 16-50-4036smsjjs 120 mg by subcutaneous injection every monthGalcanezumab-Gnlm Active 120 MG SUBCUT every month May 28, 2023 12:00amStart: 65-05-7560jhffmp 1 mL by subcutaneous injection every monthEmgality 120 MG/ML 1 mL Subcutaneous monthly for 30 days Nov, Activegalcanezumab (Emgality) 120 MG/ML auto- injector Inject 120 mg under the skin 1 (one) time Two 120mg/ml injections the first month then one 120mg/ml injection monthly thereafer Subcutaneous Active glucagon (rdna) 1 mg injection (10 sources)Antihypoglycemic AgentStart: 53-34-5110ewadpf 1 mg intravenously onceglucagon (GLUCAGEN) 1 mg/mL injection Inject 1 mg intravenously one time only for 1 dose. For MRI Enterography, Inject 1 mg intravenously, as directed. Slow push at the appropriate time during MRI Scan 1 Each 03/13/2022 Active Comment on above:Inject 1 mg intravenously one time only for 1 dose. For MRI Enterography, Inject 1 mg intravenously, as directed. Slow push at the appropriate time during MRI Scan3 ml insulin glargine 100 unt/ml pen injector (20 sources)Insulin AnalogStart: 90-70-3968Gnkaevi Glargine (Lantus Solostar U- 100 Insulin) 100 unit/mL (3 mL) insulin pen Active 50 UNIT SUBCUT Daily 45 90 3 October 28, 2024 9:07am Complies with drug therapyStart: 11-13-2023 End: 91-89-1321Hbrgjyw Glargine (Lantus Solostar U-100 Insulin) 100 unit/mL (3 mL) insulin pen Discontinued 25 UNIT SUBCUT Twice daily November 13, 2023 1:10pm October 28, 2024 9:09amStart: 05-28-2023 End: 98-67-2190Bwfsaiw Glargine (Lantus Solostar U-100 Insulin) 100 unit/mL (3 mL) insulin pen Discontinued 50 UNIT SUBCUT Every evening 45 90 3 October 10, 2023 12:00am November 13, 2023 1:14pmLantus SoloStar 100 UNIT/ML 50 units Subcutaneous q HS ActiveLantus SoloStar 100 UNIT/ML 10 units, increase 2 units every 3 days until FBS Active3 ml insulin lispro 100 unt/ml pen injector (20 sources)Insulin AnalogStart: 91-29-3945Lgvfacj Lispro (Humalog Kwikpen Insulin) 100 unit/mL insulin pen Active 1 sliding scale dose SUBCUTUse as Directed November 13, 2023 12:00am Complies with drug therapyStart: 08-07-2022 HumaLOG KwikPen 100 UNIT/ML Per sliding scale Subcutaneous daily at largest meal for 30 days July, Activeinsulin lispro (HUMALOG KWIKPEN INSULIN SQ) ActiveHumaLOG KwikPen 100 UNIT/ML 15-20 units Subcutaneous twice daily Active inject 1 dose by subcutaneous injection once at mealtimeHumaLOG KwikPen 100 UNIT/ML Per sliding scale, largest dose 6 units Subcutaneous daily at largest me al ActiveInsulin Lispro (Humalog Kwikpen Insulin) 100 unit/mL insulin pen (5 sources)Start: 17-76-0378Fmvfeph Lispro (Humalog Kwikpen Insulin) 100 unit/mL insulin pen Active 1 sliding scale dose SUBCUTUse as Directed November 13, 2023 12:00am3 ml insulin lispro 50 unt/ml / insulin lispro protamine, human 50 unt/ml pen injector (20 sources)Insulin Analoginsulin lispro protamine-insulin lispro (HumaLOG MIX 50/50 KWIKPEN) (50-50) 100 UNIT/ML injection Inject 100 Units under the skin in the morning and 100 Units in the evening. Inject with meals. Active methylPREDNISolone (20 sources)CorticosteroidStart: 69-10-9165txkolsXAYASGBkqlxz (Medrol Dospak) 4 MG tablets Indications: Other specified disorders of synovium,right ankle and foot Follow schedule on MEDROL PACK package instructions to be used as directed 21 tablet 07/02/2024 ActiveStart: 05-14-2024 End: 04-77-9619ccbycdMOCWBQLdxvvu (Medrol Dospak) 4 MG tablets Indications: Other specified disorders of synovium,right ankle and foot Follow schedule on MEDROL PACK package instructions to be used as directed 21 tablet 05/14/2024 07/02/2024 Discontinued (Therapy completed)Start: 08-02-1471xztgoqOXYMLYUqzdzf (Medrol Dospak) 4 MG tablets Indications: Other specified disorders of synovium, right ankle and foot Follow schedule on MEDROL PACK package instructions to be used as directed 21 tablet 05/14/2024 Lmrzoc27 hr metoprolol succinate 25 mg extended release oral tablet (20 sources)beta-Adrenergic BlockerStart: 11-13-2023 End: 45-83-4357vuenlrllyo succinate XL (Toprol-XL) 25 MG 24 hr tablet Daily at bedtime 11/25/2023 Activeomeprazole 40 mg delayed release oral capsule (20 sources)Proton Pump InhibitorStart: 01-01-2022 End: 06-01-6305eliq 1 capsule by mouth once daily in the morningOmeprazole 40 mg capsule,delayed release(DR/EC) Active 40 MG PO Every morning May 28, 2023 12:00am gerd Complies with drug therapyComment on above:Take 1 capsule by mouth once daily.TAKE 1 CAPSULE BY MOUTH ONCE DAILYozempic (0.25 or 0.5 mg/dose) 2 mg/3ml solution pen-injector (5 sources)Start: 98-52-5114Gkjwdlk (0.25 or 0.5 MG/DOSE) 2 MG/3ML 0.25mg Subcutaneous weekly for 28 days Feb, Activepolyethylene glycol 3350 61641 mg powder for oral solution (1 source)Osmotic LaxativeStart: 12-11-0829fwpveliqckxo glycol 3350 (MIRALAX) 17 gram/dose powder Take 17 g by mouth once daily. Dissolve dosein 4 - 8 ounces of liquid and take as directed. 1530 g 3 11/19/2024 Activepregabalin 50 mg oral capsule (12 sources)Start: 94-57-7318nfpv 1 capsule by mouth in the morning, then take 1 capsule by mouth at bedtimepregabalin (LYRICA) 50 mg capsule TAKE 1 CAPSULE (50 MG TOTAL) BY MOUTH IN THE MORNING AND 1 CAPSULE (50 MG TOTAL) BEFORE BEDTIME. 02/03/2022 ActiveComment on above:TAKE 1 CAPSULE (50 MG TOTAL) BY MOUTH IN THE MORNING AND 1 CAPSULE (50 MG TOTAL) BEFORE BEDTIME.rosuvastatin calcium 20 mg oral tablet (20 sources)HMG-CoA Reductase InhibitorStart: 07-03-2023 End: 09-80-1140reex 1 tablet by mouth once daily in the eveningRosuvastatin 20 mg tablet Active 0 .ROUTE .COMPLEX 90 3 June 28, 2024 12:24pm TAKE 1 TABLET BY MOUTH EVERY DAY IN THE EVENING Complies with drug therapyStart: 09-25-2020 End: 62-30-0713ojga 1 tablet by mouth once daily in the eveningRosuvastatin 20 mg tablet Discontinued 20 MG PO Every evening May 28, 2023 12:00am July 03, 2023 2:37pmCrestor ActiveComment on above:Take 20 mg by mouth.sildenafil 100 mg oral tablet (20 sources)Phosphodiesterase 5 InhibitorStart: 02-06-2024 End: 40-53-3107Kvcdiysamn 100 mg tablet Active 0 .ROUTE .COMPLEX 6 5 August 02, 2024 7:41am TAKE 1 TABLET BY MOUTH NEEDED 30 MINUTES TO 4 HOURS BEFORE SEXUAL ACTIVITY Complies with drug therapyStart: 79-65-6907hajovidbma (Viagra) 100 MG tablet Daily 07/10/2023 ActiveStart: 07-10-2023 End: 62-83-6380Xpcphkjzid 100 mg tablet Discontinued 100 MG PO Daily as needed for sexual activity 6 30 5 July 12:00am February 06, 2024 9:43am administer 30 minutes to 4 hours before activitySITagliptin 50 mg oral tablet (20 sources)Dipeptidyl Peptidase 4 InhibitorStart: 53-59-5879Ycqyqag 50 MG as directed Orally Once a day Sep, Activesulfacetamide sodium 100 mg/ml ophthalmic solution (4 sources)Sulfonamide AntibacterialStart: 96-05-7155ilyu 2 drop(s) into the eye(s) four times dailySulfacetamide Sodium 10 % 2 drops in affected eye Ophthalmic qid for 7 days Feb, ActiveTRULICITY 4.5 mg/0.5 mL pen injector (1 source)inject 4.5 mg by subcutaneous injection every weekTRULICITY 4.5 mg/0.5 mL pen injector INJECT 4.5 MG (0.5 ML) SUBCUTANEOUSLY ONCE EVERY WEEK FOR 90 DA YS Activeubrogepant 100 mg oral tablet (20 sources)Start: 18-71-4277ncri 1 tablet by mouth once as neededUbrogepant (Ubrelvy) 100 mg tablet Active 100 MG PO Once as needed December 23, 2023 12:00am Complies with drug therapyStart: 47-24-3705tklj 1 tablet by mouth every two hours, then take 2 tablets by mouth every twenty-four hoursUbrogepant (Ubrelvy) 100 MG tablet Indications: Migraine without status migrainosus, not intractable, unspecified migraine type Take 1 tablet by mouth if needed (May repeat in 2 hours. Max of 2 tablets in 24 hours.) 10 tablet 6 11/26/2023 Active Completed/Discontinued Medications MedicationDrug Class(es)DatesSig (Normalized)Sig (Original)ALPRAZolam 0.5 mg oral tablet (20 sources)BenzodiazepineStart: 09-30-2020 End: 54-90-2641icux 1 tablet by mouth three times daily as needed for anxiety Alprazolam 0.5 mg tablet Discontinued 0.5 MG PO Three times daily as needed for anxiety 2 March 08, 2024 9:30am July 20, 2024 7:44am Generalized anxiety disorder Generalized anxiety disorderStart: 09-30-2020 End: 96-57-0058tzoi 1 tablet by mouth every eight hours as needed for anxiety Alprazolam 0.5 mg tablet Discontinued 0.5 MG PO Every 8 hours as needed for Anxiety 30 5 2023 2:54pm March 08, 2024 9:32am Generalized anxiety disorder Generalized anxiety disorderStart: 09-30-2020 End: 29-13-2212kxla 1 tablet by mouth once daily at bedtime as needed for anxietyAlprazolam 0.5 mg tablet Discontinued 0.5 MG PO Daily at bedtime as needed for Anxiety January 30, 2021 1:00am May 28, 2023 3:20pmComment on above:Take 0.5 mg by mouth.atenolol 50 mg oral tablet (17 sources)beta-Adrenergic BlockerStart: 01-30-2021 End: 94-68-9456nxza 1 tablet by mouth once dailyAtenolol 50 mg tablet Discontinued 50 MG PO Daily January 30, 2021 1:00am July 18, 2021 11:38am atropine sulfate 0.025 mg / diphenoxylate hydrochloride 2.5 mg oral tablet (20 sources)Anticholinergic, Cholinergic Muscarinic Antagonist, Antidiarrheal Start: 12-03-2019 End: 03-09-5796czaa 1 tablet by mouth three times dailyDiphenoxylate-Atropine 2.5-0.025 mg tablet Discontinued 1 TAB PO Three times daily May 28, 2023 12:00am September 04, 2023 4:09pmStart: 14-61-1289pggv 1 tablet by mouth every eight hoursStart: 47-98-5198zbxi 1 tablet by mouth every six hoursLomotil 2.5- 0.025 MG 1 tablet as needed Orally Four times a day for 30 days Nov, Activeazithromycin 250 mg oral tablet (13 sources)Macrolide AntimicrobialStart: 09-23-2024 End: 81-42-4075Nmbavfpfnfrl 250 mg tablet Discontinued 0 PO daily 6 5 0 December 23, 2024 8:31am December 23, 2024 8:32am Pharyngitis Acute pharyngitis, unspecified Take 2 on day 1 and then take 1 for the next 4 days (days 2-5)Start: 32-50-9279Pkahhmdbfdgg 250 MG as directed Orally daily for 5 days Feb, Activebenazepril hydrochloride 10 mg oral tablet (20 sources)Angiotensin Converting Enzyme InhibitorStart: 03-27-2019 End: 04-13-7120ssbq 1 tablet by mouth once dailyBenazepril 10 mg tablet Discontinued 10 MG PO Daily May 28, 2023 12:00am May 29, 2023 4:38pm Lotensin ActiveComment on above:Take 10 mg by mouth once daily.Blood-Glucose Meter,Continuous (Dexcom G7 Yarder Engineer) misc (5 sources)Start: 09-20-2023 End: 47-26-7016Nplwx-Glucose Meter,Continuous (Dexcom G7 Yarder Engineer) misc Discontinued 0 .Route 1 September 20, 2023 12:00am September 20, 2023 12:03pm As directedBlood-Glucose Sensor (Dexcom G7 Sensor) device (11 sources)Start: 09-20-2023 End: 37-74-9371Gvgds-Glucose Sensor (Dexcom G7 Sensor) device Discontinued 0 .Route 4 2 September 20, 2023 12:00am September 20, 2023 12:03pm Type 2 diabetes mellitus with hyperglycemia Type 2 diabetes mellitus with hyperglycemia 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 Change sensor every 10 daysStart: 09-20-2023 End: 30-13-3282Rmpsv-Glucose Sensor (Dexcom G7 Sensor) device Discontinued 0 .Route 4 September 20, 2023 12:00am 2023 12:03pm Change sensor every 10 daysBlood-Glucose Sensor (Freestyle Maicol 3 Sensor) device (11 sources)Start: 09-20-2023 End: 42-22-5777Rbwte-Glucose Sensor (Freestyle Maicol 3 Sensor) device Discontinued 0 .Route 3 2 September 20, 2023 12:00am December 08, 2023 5:52pm Diabetes mellitus with hyperglycemia Type 2 diabetes mellitus withhyperglycemia Change sensor every 14 daysStart: 09-20-2023 End: 65-63-1372Nasmm-Glucose Sensor (Freestyle Maicol 3 Sensor) device Discontinued 0 .Route 3 September 20, 2023 12:00am December 08, 2023 5:52pm Change sensor every 14 daysStart: 27-98-1768Tczwx-Glucose Sensor (Freestyle Maicol 3 Sensor) device Active 0 .Route 3 September 20, 2023 12:00am Change sensor every 14 daysBlood-Glucose,Yarder Engineer,Cont (Dexcom G7 Yarder Engineer) misc (6 sources)Start: 09-20-2023 End: 62-17-7593Mbpnm-Glucose,Yarder Engineer,Cont (Dexcom G7 Yarder Engineer) misc Discontinued 0 .Route 1 0 September 20, 2023 12:00am September 20, 2023 12:03pm As directedStart: 09-20-2023 End: 91-21-6840Nopjk-Glucose,Yarder Engineer,Cont (Dexcom G7 Yarder Engineer) misc Discontinued 0 .Route 1 September 20, 2023 12:00am September 20, 2023 12:03pm As directedcefuroxime 250 mg oral tablet (20 sources)Cephalosporin AntibacterialStart: 05-28-2023 End: 89-97-2042ytjs 1 tablet by mouth every twelve hoursCefuroxime Axetil 250 mg tablet Discontinued 250 MG PO Every 12 hours May 28, 2023 12:00am May 29, 2023 4:12pmStart: 40-69-3960yjkk 1 tablet by mouth every twelve hours Cefuroxime Axetil 250 MG 1 tablet Orally every 12 hrs for 7 days Jan, Activecetirizine hydrochloride 10 mg oral tablet (20 sources)Histamine-1 Receptor AntagonistStart: 07-18-2021 End: 19-46-3596kafs 1 tablet by mouth once daily in the morningCetirizine (Zyrtec) 10 mg Tablet Discontinued 10 MG PO Every morning July 18, 2021 12:00am 2023 2:34pmCetirizine HCl (ZYRTEC PO) Take by mouth ActiveZyrTEC Allergy Activesugar-free cholestyramine resin 4000 mg powder for oral suspension (20 sources)Bile Acid SequestrantStart: 03-27-2019 End: 24-15-7060Elnzjipswtjumk-Aspartame (Prevalite) 4 gram powder in packet Discontinued 1 EACH PO Daily January 30, 2021 1:00am July 18, 2021 11:38am Prevalite 4 GM 1 packet Orally Once a day ActiveCholestyramine-Aspartame (Prevalite) 4 gram powder in packet (8 sources)Start: 01-30-2021 End: 19-21-2030Qecxqdfadodwgq-Aspartame (Prevalite) 4 gram powder in packet Discontinued 1 EACH PO Daily January 30, 2021 1:00am July 18, 2021 11:38am colesevelam hydrochloride 625 mg oral tablet (14 sources)Bile Acid SequestrantStart: 01-01-2022 End: 53-89-6422ydgfetyiooe (WELCHOL) 625 mg tablet START WITH 1 TABLET AT BEDTIME THEN INCREASE TO 2 TABLETS IF DIARRHEA PERSISTS 60 tablet 5 01/25/2022 12/16/2023 DiscontinuedComment on above:Start with 1 tab PO QHS. Increase to 2 tabs if diarrhea persists.START WITH 1 TABLET AT BEDTIME THEN INCREASE TO 2 TABLETS IF DIARRHEA PERSISTSdocusate sodium 100 mg oral capsule (10 sources)Start: 12-16-2023 End: 59-56-7711yijr 1 capsule by mouth twice dailyDocusate Sodium (Colace) 100 mg capsule Discontinued 100 MG PO Twice daily December 23, 2023 12:00am December 23, 2024 8:35amdoxycycline hyclate 100 mg oral capsule (6 sources)Tetracycline-class DrugStart: 01-08-2024 End: 77-70-1655oqds 1 capsule by mouth twice dailyDoxycycline Hyclate 100 mg capsule Discontinued 100 MG PO Twice daily 10 January 08, 2024 12:00am August 21, 2024 8:30amenteric contrast (will be provided with radiology test) (1 source)Start: 03-13-2022 End: 37-55-1807xgwgpwx contrast (will be provided with radiology test) For MRI ENTEROGRAPHY WO/W Administer, As Directed One Time Only, via Oral, Rectal, both Oral and Rectal, Enteric Tube, Stoma or Indwelling Catheter, Enteric Contrast as designated per enteric contrast guidelines 1 Each 03/13/2022 03/14/2022 escitalopram 20 mg oral tablet (20 sources)Serotonin Reuptake InhibitorStart: 07-31-2023 End: 17-10-7325lset 1 tablet by mouth once daily at bedtimeEscitalopram Oxalate 20 mg tablet Discontinued 0 .ROUTE .COMPLEX 90 January 27, 2024 7:56am July 28, 2024 7:42am TAKE 1 TABLET BY MOUTH EVERYDAY AT BEDTIMEStart: 08-27-2020 End: 38-51-7959vmdj 1 tablet by mouth once daily at bedtimeEscitalopram Oxalate 20 mg tablet Discontinued 20 MG PO Daily at bedtime May 28, 2023 12:00am July 31, 2023 2:56pmLexapro ActiveComment on above:Take 20 mg by mouth.etodolac 400 mg oral tablet (14 sources)Nonsteroidal Anti-inflammatory DrugStart: 01-30-2021 End: 91-48-8127frdi 1 tablet by mouth twice dailyEtodolac 400 mg tablet Discontinued 400 MG PO Twice daily January 30, 2021 1:00am July 18, 2021 11:39amInsulin Glargine-Yfgn (6 sources)Start: 10-10-2023 End: 62-21-2933Zsetnil Glargine-Yfgn (Semglee(Insulin Glarg-Yfgn)Pen) 100 unit/mL (3 mL) insulin pen Discontinued 50 UNIT SUBCUT Daily 45 90 3 October 10, 2023 8:46am October 10, 2023 8:56amStart: 10-10-2023 End: 87-61-0094Elljtbk Glargine-Yfgn (Semglee(Insulin Glarg-Yfgn)Pen) 100 unit/mL (3 mL) insulin pen Discontinued 50 UNIT SUBCUT Daily 45 90 October 10, 2023 8:46am October 10, 2023 8:56amInsulin Glargine-Yfgn (Semglee(Insulin Glarg- Yfgn)Pen) 100 unit/mL (3 mL) insulin pen (5 sources)Start: 10-10-2023 End: 79-08-9321Unxnvvk Glargine-Yfgn (Semglee(Insulin Glarg-Yfgn)Pen) 100 unit/mL (3 mL) insulin pen Discontinued 50 UNIT SUBCUT Daily 45 90 October 10, 2023 8:46am October 10, 2023 8:56am24 hr isosorbide mononitrate 30 mg extended release oral tablet (20 sources)Nitrate VasodilatorStart: 12-31-2023 End: 99-64-7802jkqh 1 tablet by mouth once daily in the morningIsosorbide Mononitrate 30 mg tablet extended release 24 hr Discontinued 0 .ROUTE .COMPLEX 90 1 December 31, 2023 12:41pm January 01, 2024 3:15pm TAKE 1 TABLET BY MOUTH EVERY MORNINGStart: 11-13-2023 End: 56-53-9203xayanpbgkw mononitrate ER (Imdur) 30 MG 24 hr tablet Every morning 11/13/2023 Activeiv contrast (will be provided with radiology test) (1 source)Start: 03-13-2022 End: 22-29-2149bg contrast (will be provided with radiology test) MRI Enterography Inject, intravenously, once for1 dose. No IV access, insert saline lock prior to the beginning of sedation, infusion, injection ofimaging exam. Discontinue saline lock post exam. If Pt. has a central line or IVAD, may access for administration according to line specific nursing protocol. Once exam is complete flush line and de-access according to line specific nursing protocol in the MR contrast administration guidelines link. 1 Each 03/13/2022 03/14/2022 Expiredloratadine 10 mg oral tablet (17 sources)Start: 01-30-2021 End: 05-38-3194ubyq 1 tablet by mouth once dailyLoratadine 10 mg Tablet Discontinued 10 MG PO Daily January 30, 2021 1:00am July 18, 2021 11:39am Fdcilmcpq-Zphjaf-Bhcrkebt-Scop (8 sources)Start: 03-27-2019 End: 08-25-5633hwhm 1 tablet by mouth three times daily Fmvfelgiq-Xvjnib-Ysltuwkd-Scop Discontinued 1 TAB PO Three times daily March 27, 2019 1:00am January 30, 2021 12:28eiXlomtvsbx-Grgcot-Zqcriwuv-Scop 16.2-0.1037 -0.0194 mg tablet (6 sources)Start: 03-27-2019 End: 33-79-4131wsey 1 tablet by mouth three times daily Urmsowhsu-Djcchp-Kubsobpp-Scop 16.2-0.1037 -0.0194 mg tablet Discontinued 1 TAB PO Three times daily March 27, 2019 1:00am January 30, 2021 12:15pm predniSONE 20 mg oral tablet (15 sources)Start: 10-07-2024 End: 78-46-5244Lrxikhtcqi 20 mg tablet Discontinued 20 MG PO As Directed 16 9 0 October 07, 2024 12:00am December 23, 2024 8:36am 1 tab tid w/ food x 2 days, then bid w/ food x 3 days, then qd w/ food x 4 daysStart: 09-04-2023 End: 61-49-8204Fwmdbtwzmy 20 mg tablet Discontinued 20 MG PO As Directed 18 0 September 04, 2023 12:00am November 13, 2023 1:13pm 1 tab tid w/ food x 3 days, then bid w/ food x 3 days, then qd w/ food x 3 days24 hr propranolol hydrochloride 80 mg extended release oral capsule (14 sources)beta-Adrenergic BlockerStart: 03-27-2019 End: 51-04-9113kkpj 1 capsule by mouth once dailyPropranolol 80 mg capsule,extended release 24 hr Discontinued 80 MG PO Daily March 27, 2019 1:00am January 30, 2021 12:16pmrizatriptan 10 mg oral tablet (20 sources)Serotonin-1b and Serotonin-1d Receptor AgonistStart: 05-28-2023 End: 19-21-9699ogof 1 tablet by mouth once daily as needed for headache Rizatriptan (Maxalt) 10 mg tablet Discontinued 10 MG PO Daily as needed for migraine headache November 13, 2023 1:12pm November 27, 2023 11:12amStart: 27-99-2630dopghvwukrj (MAXALT) 5 mg tablet TAKE 1 TABLET BY MOUTH AT ONSET OF MIGRAINE MAY REPEAT 1 TAB IN 2HRS IF NEEDED 02/12/2022 ActiveComment on above: TAKE 1 TABLET BY MOUTH AT ONSET OF MIGRAINE MAY REPEAT 1 TAB IN 2HRS IF NEEDED Semaglutide (20 sources)Start: 05-29-2023 End: 12-89-7956Enizunsmphf (Ozempic) 0.25 mg or 0.5 mg (2 mg/3 mL) pen injector Discontinued 0.25 MG SUBCUT every week 3 May 29, 2023 4:38pm June 12, 2023 4:24pmStart: 05-29-2023 End: 05-85-4008Xghpmloumaf (Ozempic) 0.25 mg or 0.5 mg (2 mg/3 mL) pen injector Discontinued 0.25 MG SUBCUT every week 3 May 29, 2023 4:38pm June 12, 2023 4:24pmStart: 05-28-2023 End: 21-17-0566Mluwllpqumd (Ozempic) 0.25 mg or 0.5 mg (2 mg/3 mL) pen injector Discontinued 0.25 MG SUBCUT every week May 28, 2023 12:00am May 29, 2023 4:62aw6301 ml sodium chloride 9 mg/ml injection (1 source)Start: 03-13-2022 End: 67-85-5267jgzn 30 mL intravenously every hour30 mL/hr, INTRAVENOUS, CONTINUOUS, Starting on Sat03/13/22 at 1030, Until Sat12/04/23 at 0508, Prepro ceduretriamcinolone acetonide 5 mg/ml topical cream (4 sources)CorticosteroidStart: 10-07-2024 End: 55-41-1936Xfjhwadavztty Acetonide 0.5 % cream Discontinued 1 APPLIC TOPICAL Twice daily October 07, 2024 12:00am January 06, 2025 8:26am Problems Active Problems Problem ClassificationProblemDateDocumented DateEpisodic/ChronicAbdominal pain (18 sources)Abdominal pain; Translations: [Unspecified abdominal pain]Episodic Acute bronchitis (1 source)Acute bronchitis due to other specified organismsEpisodicAllergic reactions (2 sources)Contact dermatitis; Translations: [Unspecified contact dermatitis, unspecified cause]01-45-5325PvlyehblLaprbqc disorders (20 sources)Generalized anxiety disorder; Translations: [Generalized anxiety disorder]ChronicBlindness and vision defects (6 sources)Visual disturbance; Translations: [Unspecified visual disturbance] EpisodicDiabetes mellitus with complications (20 sources)Type 2 diabetes mellitus; Translations: [Type 2 diabetes mellitus with hyperglycemia]Onset: 69-07-8323WcgdjgwDimzpdmvl of lipid metabolism (20 sources)Hypercholesterolemia; Translations: [Pure hypercholesterolemia, unspecified]ChronicEsophageal disorders (20 sources)Gastroesophageal reflux disease; Translations: [Gastro-esophageal reflux disease without esophagitis]Onset: 331857-10-8280ThdkmewPifjsfnhg hypertension (20 sources)Essential hypertension; Translations: [Essential (primary) hypertension]ChronicGastritis and duodenitis (6 sources)Gastritis; Translations: [Gastritis, unspecified, without bleeding] Onset: 09-04-2021 Resolved: 20-79-1553YhxsfzwbNdfvwnnrklobllqu hemorrhage (9 sources)Hematochezia; Translations: [Melena]EpisodicHeadache; including migraine (20 sources)Migraine; Translations: [Migraine, unspecified, not intractable, without status migrainosus]Onset: 928809-39-9299VjhtepzJwjggftpceyy; infection of eye (except that caused by tuberculosis or sexually transmitteddisease) (1 source)Unspecified acute conjunctivitis, bilateralEpisodicMelanomas of skin (20 sources)Malignant melanoma of head and neck ; Translations: [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]Onset: 573572-18-5426 ChronicMiscellaneous mental health disorders (20 sources)Primary insomnia; Translations: [Primary insomnia]Onset: 07-08-2023 37-00-7419DphnfdvEmzy disorders (20 sources)Recurrent major depression in full remission; Translations: [Major depressive disorder, recurrent, in full remission]28-94-2622GrtobfhOlsocehmq of unspecified nature or uncertain behavior (1 source)Neoplasm of uncertain behavior of skin; Translations: [Neoplasm of uncertain behavior of skin]EpisodicNonspecific chest pain (10 sources)Chest pain; Translations: [Chest pain, unspecified]11-13-2023 EpisodicOther acquired deformities (7 sources)Contracture of joint of right ankle; Translations: [Contracture, right ankle]95-16-2536GagcjvmVjisz acquired deformities (11 sources)Contracture of joint of left ankle; Translations: [Contracture, left ankle]29-60-4858XoppgmcBvfhb aftercare (7 sources)Encounter for follow-up examination after completed treatment for conditions other than malignant neoplasmOnset: 80-15-9942XtygkemtEvnfp aftercare (16 sources)Long-term current use of insulin; 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]EpisodicOther aftercare (5 sources)skilled nursing (current) use of insulinEpisodicOther and unspecified benign neoplasm (1 source)Benign neoplasm of colon, unspecifiedOnset: 25-87-5468EhzqbigxNgmbt connective tissue disease (16 sources)Tendinitis of right posterior tibial tendon; Translations: [Posterior tibial tendinitis, right leg]55-94-1558KlidmyvhIlsxa connective tissue disease (16 sources)Disorder of musculoskeletal system; Translations: [Other specified disorders of synovium, right ankle and foot]43-45-2797LxbpnqeqInfgj connective tissue disease (20 sources)Left achilles tendonitis; Translations: [Achilles tendinitis, left leg]63-92-3266TgfyywfmKkonh gastrointestinal disorders (14 sources)Irritable bowel syndrome; Translations: [Irritable bowel syndrome without diarrhea]97-95-2698WdxuvovSwdfw gastrointestinal disorders (20 sources)Irritable bowel syndrome with diarrhea; Translations: [Irritable bowel syndrome with diarrhea]ChronicOther gastrointestinal disorders (4 sources)Irritable bowel syndrome with diarrheaOnset: 01-19-2021 Resolved: 21-68-3879MgsxvssGpvaz gastrointestinal disorders (2 sources)Irritable bowel syndrome characterized by constipation; Translations: [Irritable bowel syndrome with constipation]96-03-1375UblueyeFrmly gastrointestinal disorders (1 source)Irritable bowel syndrome with constipation; Translations: [Irritable bowel syndrome with constipation]Onset: 43-94-0919TebiixeTjzvm gastrointestinal disorders (11 sources)Diarrhea; Translations: [Diarrhea, unspecified]EpisodicOther gastrointestinal disorders (9 sources)Swollen abdomen; Translations: [Abdominal distension (gaseous)] EpisodicOther gastrointestinal disorders (20 sources)Dysphagia; Translations: [Dysphagia, unspecified]81-43-0280Gqxipqoi Comment on above:Problem List clean-up per request of Phys. EHR CmteOther gastrointestinal disorders (2 sources)Esophageal dysphagia; Translations: [Other dysphagia]EpisodicOther lower respiratory disease (5 sources)Dyspnea; Translations: [Dyspnea, unspecified]46-63-4740WmngbxjvLnift lower respiratory disease (8 sources)Dyspnea, unspecified; Translations: [Other respiratory abnormalities] 37-51-9685IgswnhfwWvjlh nervous system disorders (20 sources)Bilateral carpal tunnel syndrome; Translations: [Carpal tunnel syndrome, bilateral upper limbs]25-18-5710GgyfjkqIounm nervous system disorders (20 sources)Carpal tunnel syndrome of left wrist; Translations: [Carpal tunnel syndrome, left upper limb]Onset: 720900-49-5118LrfqprvEqxgc nervous system disorders (1 source)Carpal tunnel syndrome, bilateral upper limbsOnset: 10-17-2021 Resolved: 27-96-9080YqqyesaOqjju nervous system disorders (5 sources)Carpal tunnel syndrome; Translations: [Carpal tunnel syndrome, bilateral upper limbs]13-66-5287TygxgxeTzgwv nervous system disorders (12 sources)Impairment of balance; Translations: [Other abnormalities of gait and mobility]EpisodicOther nutritional; endocrine; and metabolic disorders (9 sources)Weight loss; Translations: [Abnormal weight loss]EpisodicOther nutritional; endocrine; and metabolic disorders (20 sources)Body mass index 25-29 - overweight; Translations: [Body mass index (BMI) 25.0-25.9, adult]EpisodicOther nutritional; endocrine; and metabolic disorders (1 source)OverweightEpisodicOther screening for suspected conditions (not mental disorders or infectious disease) (20 sources)Cardiovascular stress test abnormal; Translations: [Abnormal result of other cardiovascular function study]95-15-6492AbbrxvkiPplabah on above:PSA: 1.3 - 08/2024Other skin disorders (1 source)Skin tag; Translations: [Other hypertrophic disorders of the skin] EpisodicOther upper respiratory disease (7 sources)Allergic rhinitis due to pollen; Translations: [Allergic rhinitis due to pollen]ChronicOther upper respiratory disease (1 source)Allergic rhinitis due to pollenChronicOther upper respiratory infections (10 sources)Acute maxillary sinusitis, unspecified; Translations: [Pharyngitis] EpisodicOtitis media and related conditions (2 sources)Unspecified Eustachian salpingitis, left ear; Translations: [Unspecified Eustachian tube disorder, left ear]EpisodicResidual codes; unclassified (20 sources)Obstructive sleep apnea syndrome; Translations: [Obstructive sleep apnea (adult) (pediatric)]Onset: 052017-32-1091UjfbguhYnaskcng codes; unclassified (14 sources)Obstructive sleep apnea (adult) (pediatric); Translations: [Obstructive sleep apnea (adult)(pediatric)]Onset: 29-64-1145DtabnyeXrwnxkwt codes; unclassified (1 source)Idiopathic hypersomnia with long sleep time; Translations: [IDIO HYPERSOMNIA W/LONG SLEEP TIME]Onset: 48-93-5221VypwjgcQlsrkzih codes; unclassified (20 sources)Daytime somnolence; Translations: [Other hypersomnia]Onset: 995859-09-3808RdnhkzaUnofdbnw codes; unclassified (20 sources)Hypersomnia; Translations: [Hypersomnia, unspecified]Onset: 412611-41-9436PkpkvvsQgbfwoty codes; unclassified (18 sources)Other hypersomnia; Translations: [Hypersomnia, unspecified]Onset: 960981-86-0229JpdtdtfOfdkqzgs codes; unclassified (3 sources)No current problems or disability; Translations: [Other specified conditions influencing health status]Onset: 50-93-5695WtwnnbgfWswlrlyqutp; intervertebral disc disorders; other back problems (20 sources)Cervical spondylosis with radiculopathy; Translations: [Other spondylosis with radiculopathy, cervical region]Onset: 10-17-2021 Resolved: 17-08-2548HrfypybNkpslrgocyr; intervertebral disc disorders; other back problems (19 sources)Low back pain; Translations: [Low back pain, unspecified back pain laterality, unspecified chronicity, unspecified whether sciatica present]Onset: 10-17-2021 Resolved: 73-85-0753HqzrlljaRvlryti and strains (5 sources)Rupture of left Achilles tendon; Translations: [Strain of left Achilles tendon, initial encounter]Onset: 435498-40-4958WoegxaqdXisklvj disorders (16 sources)Thyroid nodule; Translations: [Nontoxic single thyroid nodule] 96-61-5482CiwjhpnQripsdh on above:US: right 0.5cm, 0.3cm TR3 and left 0.6cm, 0.4mm, 0.7mm TR3 - 12/2023 Past or Other Problems Problem ClassificationProblemDateDocumented DateEpisodic/ChronicEsophageal disorders (5 sources)Esophageal disordersOther connective tissue disease (6 sources)History of cervical spine fusion; Translations: [Arthrodesis status] Onset: 668763-92-7479UcozgxxdZcnhq gastrointestinal disorders (1 source)Fecal urgencyOnset: 01-19-2021 Resolved: 64-34-0647SbptltlrSwhes gastrointestinal disorders (2 sources)Diarrhea, unspecifiedOnset: 02-28-2021 Resolved: 41-45-3839CladiswdMfpue nervous system disorders (1 source)Other abnormalities of gait and mobilityOnset: 10-17-2021 Resolved: 91-88-1883JmcxdjqsEeond nervous system disorders (20 sources)Ataxia; Translations: [Ataxia, unspecified]Onset: 07-08-2023 37-14-5213LldgnaymCxmyyyzofgto (2 sources)Low back pain, unspecified back pain laterality, unspecified chronicity, unspecified whether sciatica present M54.50Onset: 10-17-2021 Resolved: 59-97-7311Ouxxvpdwrava (2 sources)Rupture of left Achilles klgvre22-34-3181 Results Test NameValueInterpretationReference RangeFacilityMR ankle LT wo conon 88-16-6903ZO ankle LT wo [facility] [place] [address] [place] [address] MRI Report Signed Patient: Donell Dumont MR#: [id number] : 1975 Acct:[id number] Age/Sex: 49 / M ADM Date: 12/29/24 [facility] [facility] Room: Type: [facility] Attending Dr: Gregory Diehl DPM Copies to: Gregory Diehl DPM Ordering Provider: Gregory Diehl DPM Date of Service: 12/29/24 MR/MR ankle [...] Pereyra M.D. 12/29/2024 5:15 PM Dictation Location: [place] [address] Transcribed By: [facility] 12/29/241714 Dictated By: Maurice Pereyra II, MD 12/29/241705 Signed By: 12/29/241714[facility] Physician GroupMagnetic resonance imaging reportOrdered By: Maurice Pereyra on [id number] reportC[facility] [place] [address] [place] [address] MRI Report Signed Patient: Donell Dumont MR#: [id number] : 1975 Acct:[id number] Age/Sex: 49 / M ADM Date: 5 Loc: [facility] Room: Type: [facility] CLI Attending Dr: Gregory Diehl DPM Copies to: Gregory Diehl DPM~ Ordering Provider: Gregory Diehl DPM Date of Service: 12/29/24 MR/MR ankle LT wo con: suspected partial tear of leftAchilles tendon MR ankle LT wo con 12/29/2024 [...] is noted along the posterior tibial tendon sheathsuggesting tenosynovitis.. Flexor digitorum longus: Intact. Flexor hallucis [...] Pereyra M.D. 12/29/2024 5:15 PM Dictation Location: RADIO-PC-27 Transcribed By: KIERA 12/29/241714 Dictated By: Maurice Pereyra II, MD 12/29/241705 Signed By: 12/29/241714 [facility] Work Phone: CNOVon [phone] Visit (HILARIO) DONELL DUMONT ([id number]) 1975 M Date Time Provider Department 11/19/24 8:30 AM SHYANNE RODRÍGUEZ During your visit today, we recorded the following information about you: Pulse Blood pressure Weight 81/minute 125/82 95.3 kg Shyanne Rodríguez, RECTIFYING OPERATOR.TAVERN KEEPER 11/19/2024 9:18 AM Signed DEPARTMENT OF GASTROENTEROLOGY - FOLLOW UP REASON FOR VISIT Donell Dumont is a 49 year old male who is scheduled for follow up of IBS, GERD HISTORY OF PRESENT ILLNESS Donell Dumont is a 49 year old male who presents today for follow up of IBS, GERD Pertinent Workup to Date: LS 12/2023: GERD, IBS. 40mg omep. Constipation on Trulicity. Was to start colace, high fiber diet with extra water. Consider Miralax. Colon due 2027. Trulicity, Elavil 25mg Symptoms: He is not tolerating the high dose Trulicity well. Lots of bloating. He is only taking the colace. BMs about 3 times weekly. Urgency with diarrhea when he finally goes. Bloated. A little breakthrough heartburn on the 40mg omeprazole. Belching. Nausea, no vomiting. No NSAIDs. Has been on 25mg amitriptyline for several years. Rectal bleeding on occasion. Known hemorrhoids. Wt stable. Minimal pain. No past medical history on file. PAST SURGICAL HISTORY Procedure Laterality Date CHOLECYSTECTOMY COLONOSCOPY 2022 EGD DIAGNOSTIC 2022 HERNIA REPAIR HX Allergies: Codeine GI Upset, Hives, Intolerance, Itching, Rash Current Outpatient Medications Medication Sig Dispense Refill amitriptyline (ELAVIL) 25 mg tablet TAKE 1/2 TO 1 TABLET BY MOUTH EVERY DAY AT BEDTIME WELLBUTRIN SR 200 mg 12 hr tablet EMGALITY PEN 120 mg/mL pen Inject 120 mg subcutaneously once every month. ubrogepant (UBRELVY) 100 mg tablet Take 1 tablet by mouth. LANTUS SOLOSTAR U-100 INSULIN 100 unit/mL (3 mL) INJECT 50 UNITS SUBCUTANEOUSLY ONCE A DAY insulin lispro (HUMALOG KWIKPEN INSULIN SQ) TRULICITY 4.5 mg/0.5 mL pen injector INJECT 4.5 MG (0.5 ML) SUBCUTANEOUSLY ONCE EVERY WEEK FOR 90 DAYS omeprazole (PRILOSEC) 40 mg capsule Take 1 capsule by mouth once daily. 90 capsule 3 docusate sodium (COLACE) 100 mg capsule Take 1 capsule by mouth two times a day. 180 capsule 3 ALPRAZolam (XANAX) 0.5 mg tablet Take 0.5 mg by mouth. baclofen (LIORESAL) 20 mg tablet TAKE 1 TABLET BY MOUTH EVERYDAY AT BEDTIME escitalopram oxalate (LEXAPRO) 20 mg tablet Take 20 mg by mouth. rosuvastatin (CRESTOR) 20 mg tablet Take 20 mg by mouth. glucagon (GLUCAGEN) 1 mg/mL injection Inject 1 mg intravenously one time only for 1 dose. For MRI Enterography, Inject 1 mg intravenously, as directed. Slow push at the appropriate time during MRI Scan 1 Each 0 pregabalin (LYRICA) 50 mg capsule TAKE 1 CAPSULE (50 MG TOTAL) BY MOUTH IN THE MORNING AND 1 CAPSULE (50 MG TOTAL) BEFORE BEDTIME. rizatriptan (MAXALT) 5 mg tablet TAKE 1 TABLET BY MOUTH AT ONSET OF MIGRAINE MAY REPEAT 1 TAB IN 2HRS IF NEEDED acetaminophen (TYLENOL) 500 mg tablet Take 1,300 mg by mouth. benazepril (LOTENSIN) 10 mg tablet Take 10 mg by mouth once daily. benazepril/hydrochlorothiazide (LOTENSIN HCT ORAL) cetirizine (ZYRTEC) 10 mg tablet fremanezumab-vfrm (T3 SearchOVY AUTOINJECTOR) 225 mg/1.5 mL auto-injector No current facility-administered medications for this visit. SOCIAL HISTORY[1] FAMILY HISTORY Problem Relation Age of Onset Colon Cancer Father REVIEW OF SYSTEMS Cardiovascular: No chest pain Respiratory: Negative for cough, wheezing and shortness of breath Gastrointestinal : See above Psychiatric: No problems PHYSICAL EXAMINATION BP 125/82 Pulse 81 Wt 95.3 kg (210 lb) BMI 26.25 kg/m? General Appearance: Well appearing, alert, in no acute distress, gait steady. Eyes: Pupils equal, no scleral icterus Lungs: breath sounds clear to auscultation bilaterally Heart: regular rate and rhythm, no murmurs Abdomen: not distended, normal bowel sounds, soft and depressible, no guarding or rebound, Minimal TTP epigastric region Neuro: alert, oriented x 3, pleasant and in no acute distress Psych: pleasant affect, calm Assessment IMPRESSION Mr. Dumont is a 49 year old male who presents for follow up of IBS, GERD. He has been having worsening constipation with bloating and some breakthrough reflux since increasing to the max acosta of [facility] for DM. Wt is stable. Failing 200mg docusate. PLAN -Start 1 capful of Miralax daily today -On Saturday drink one 10 ounce bottle of magnesium citrate with 2 tablets of Dulcolax as a mild cleanse. -Try to eat yogurt about 60 mins after taking the omeprazole in the morning. -Can add on 20mg Pepcid AC for any breakthrough reflux symptoms -If no better in 2 weeks will consider Linzess. -Colonoscopy by 2027, sooner if rectal bleeding persists or worsens (known hemorrhoids) Shyanne Rodríguez, AAKASH.TAVERN KEEPER 11/19/2024 8:31 AM [1] Social History Tobacco Use Smoking status: N (more content not included)...[facility] Cervical 4 or 5 Viewson [id number] Spine Cervical 4 or 5 Views CLINICAL HISTORY: Postoperative checkup. EXAMINATION: Frontal and lateral images of the cervical spine were obtained as well as a swimmer's image and flexion and extension images. FINDINGS: There has been previous fusion at C5-C6 and C6-C7. Surgical hardware appears intact and in appropriate alignment. Vertebral body heights and alignment are maintained. There is straightening of the normal cervical lordosis. There is limited range of motion. There is no dynamic subluxation. There is mild to moderate facet arthropathy. Prevertebral soft tissues are unremarkable. Imaged lung apices are clear. IMPRESSION: Postsurgical and mild degenerative change with limited range of motion. No acute findings. Final Dictated by: Seven Matt MD Dictated DT/TM: 04/26/2024 3:48 pm Signed by: Seven Matt MD Signed (Electronic Signature): 04/26/2024 3:50 pm (If Report Is Signed, Electronically Signed in Other Vendor System)[facility] Neurosurgery Office/Clinic NoteChief Complaint Patient is being seen for 3 month post op. History of Present Illness Three month post op follow up appointment s/p C5-6-7 ACDFF 01/24/2024 No complaint. Arms and hands feel stronger and sensation is improved. Normal voice. Normal swallowing. Off narcotic. No incision concerns. He is happy with the result of surgery. 02/20/2024 Visit: One month post op follow up appointment s/p C5-6-7 ACDFF 01/24/2024 Voice seems normal to him. Hand numbness is gone but he has noticed some right shoulder numbness and very mild ache in the proximal right arm. He does not want a steroid for this because of his diabetes. He does think that He is off narcotic. No swallowing difficulty to speak of. He has worn the hard collar as requested.[1] Review of Systems General Adult ROS Fatigue: No Weakness: No Cardiovascular EENMT Gastrointestinal Genitourinary Hematologic/Lymphatic Musculoskeletal Other Musculoskeletal: Yes Neurological Numbness: No Psychiatric Respiratory Skin Physical Exam Vitals & Measurements HR: 72 (Peripheral) BP: 128/68 HT: 191 cm Additional Vitals BP Position/Location: Sitting, Right arm [...] EOMI, PERRLA, TML, FS, No drift 5/5 rayo UE strength 5/5 rayo LE strength incision looks good Clonus absent Assessment/Plan Status post cervical spinal fusion assessment: 1. s/p C5-6-7 ACDFF 01/24/24 2. s/p L5-S1 PLIF 12/07/2022 3. HTN, depression, anxiety, asthma, recent melanoma 4. New diagnosis of diabetes - on Lantus, Januvia and insulin ss - last A1C 7.7 5. pre op Cervical mri: C4-5: mod right>left foraminal narrowing; C5-6: severe bilateral foraminal narrowing and mod central stenosis; C6-7: severe bilateral foraminal narrowing. 6. pre op Rayo UE emg/ncs: bilateral C6 and C7 radiculopathies 7. mild hoarse voice post op - resolved Plan: Follow up in 9 months with cervical xrays: ap/lat/flex/ex Time Spent with the Patient I have personally spent 20 minutes on this date, directly related to today's patient visit, including pre and post visit work, for this date of service. Time listed does not include time spent on separately billable services. Problem List/Past Medical History Ongoing Abnormal EKG Acid reflux Anxiety disorder Asthma Back pain Carpal tunnel syndrome Depression Diabetes EE (eosinophilic esophagitis) Hip pain Hypercholesteremia Hypertension Irritable bowel syndrome Melanoma Migraines Neck pain DIANA (obstructive sleep apnea) PONV (postoperative nausea and vomiting) Sacroiliac joint pain Seasonal allergies Spinal stenosis in cervical region Spinal stenosis of lumbar region Spondylosis Historical Chest pain Palpitation Pericarditis Procedure/Surgical History hydrocele excision/repair (2007) Inguinal Hernia Repair (2007) Repair of right inguinal hernia (09/09/2007) Hydrocelectomy (09/09/2007) Umbilical hernia repair (2011) REMOVAL OF GALLBLADDER (2011) Lymph node dissection (2011) Excision of Right Inguinal Lymphatic, Open Approach, Diagnostic (09/09/2011) Injection steroid EPI 1 with sedation (11/30/2016) Injection sacroiliac nerve (12/21/2016) Injection sacroiliac nerve: left (01/18/2017) Radiofrequency ablation spinal (03/15/2017) Injection block nerve medial branch (11/04/2020) Injection block nerve medial branch (12/16/2020) Radiofrequency ablation spinal (01/27/2021) Injection block sacroiliac joint (01/12/2022) Endoscopy of upper gastrointestinal tract and dilation of esophageal stricture (03/13/2022) Colonoscopic polypectomy (03/13/2022) Injection block epidural caudal steroid (04/20/2022) INJECTION TREATMENT OF NERVE (06/07/2022) Injection spine transforaminal (06/08/2022) MOHS 1 STAGE H/N/HF/G (06/28/2022) Fusion Spine Lumbar Posterior with Navigation (12/07/2022) Cardiac catheterization (11/2023) Fusion Spine Cervical Anterior and Discectomy (Bilateral) (01/24/2024) Medications baclofen 20 mg oral tablet, 20 mg= 1 tabs, Oral, HS (at bedtime) benazepril-hydrochlorothiazide 20 mg-25 mg oral tablet, 1 tabs, Oral, qAM Colace 100 mg oral capsule, 100 mg, Oral, BID Crestor 20 mg oral tablet, 20 mg= 1 tabs, Oral, HS (at bedtime) Elavil 25 mg oral tablet, 25 mg= 1 tabs, Or (more content not included)...Normal [facility] 2 or 3 Viewson [id number] Spine Cervical 2 or 3 ViewsC-spine radiographs on 02/20/2024 Clinical History: Status post spinal fusion Comparison: C-spine radiographs on 12/11/2023 Findings: 3 views of the cervical spine were obtained. The vertebral body heights are maintained. No radiographic evidence of acute fracture or dislocation. Postoperative changes compatible with interbody fusion at C5-C6 and C6-C7. Intact hardware. The prevertebral soft tissue is within normal limits. Multile radhames degenerative changes of the facet joints. Impression: Postoperative changes from probable with interbody fusion at C5-C6 and C6-C7 in satisfactory alignment. Final Dictated by: Divya LEGER, Bonnie Luis Dictated DT/TM: 02/21/2024 8:48 am Signed by: Divya LEGER, Bonnie Luis Signed (Electronic Signature): 02/21/2024 8:50 am (If Report Is Signed, Electronically Signed in Other Vendor System)Normal [facility]-20-2024 Neurosurgery Office/Clinic NoteChief Complaint Patient is being seen for 1 month post op. History of Present Illness One month post op follow up appointment s/p C5-6-7 ACDFF 01/24/2024 Voice seems normal to him. Hand numbness is gone but he has noticed some right shoulder numbness and very mild ache in the proximal right arm. He does not want a steroid for this because of his diabetes. He does think that He is off narcotic. No swallowing difficulty to speak of. He has worn the hard collar as requested. Review of Systems General Adult ROS Fatigue: No Weakness: No Cardiovascular EENMT Gastrointestinal Genitourinary Hematologic/Lymphatic Musculoskeletal Neurological Numbness: Yes Psychiatric Respiratory Skin Physical Exam Vitals & Measurements HR: 72 (Peripheral) BP: 138/86 HT: 191 cm WT: 99 kg WT: 99 kg (Dosing) BMI: 27.14 Additional Vitals BP Position/Location: Sitting, Left arm [...] EOMI, PERRLA, TML, FS, No drift 5/5 rayo UE strength 5/5 rayo LE strength incision looks good and neck is flat Clonus absent Assessment/Plan Status post cervical spinal fusion assessment: 1. s/p C5-6-7 ACDFF 01/24/24 2. s/p L5-S1 PLIF 12/07/2022 3. HTN, depression, anxiety, asthma, recent melanoma 4. New diagnosis of diabetes - on Lantus, Januvia and insulin ss - last A1C 7.7 5. pre op Cervical mri: C4-5: mod right>left foraminal narrowing; C5-6: severe bilateral foraminal narrowing and mod central stenosis; C6-7: severe bilateral foraminal narrowing. 6. pre op Rayo UE emg/ncs: bilateral C6 and C7 radiculopathies 7. mild hoarse voice post op Plan: Follow up in 2 months with cervical xrays: ap/lat/flex/ex Time Spent with the Patient I have personally spent 20 minutes on this date, directly related to today's patient visit, including pre and post visit work, for this date of service. Time listed does not include time spent on separately billable services. Problem List/Past Medical History Ongoing Abnormal EKG Acid reflux Anxiety disorder Asthma Back pain Carpal tunnel syndrome Depression Diabetes EE (eosinophilic esophagitis) Hip pain Hypercholesteremia Hypertension Irritable bowel syndrome Melanoma Migraines Neck pain DIANA (obstructive sleep apnea) PONV (postoperative nausea and vomiting) Sacroiliac joint pain Seasonal allergies Spinal stenosis in cervical region Spinal stenosis of lumbar region Spondylosis Historical Chest pain Palpitation Pericarditis Procedure/Surgical History hydrocele excision/repair (2007) Inguinal Hernia Repair (2007) Repair of right inguinal hernia (09/09/2007) Hydrocelectomy (09/09/2007) Umbilical hernia repair (2011) REMOVAL OF GALLBLADDER (2011) Lymph node dissection (2011) Excision of Right Inguinal Lymphatic, Open Approach, Diagnostic (09/09/2011) Injection steroid EPI 1 with sedation (11/30/2016) Injection sacroiliac nerve (12/21/2016) Injection sacroiliac nerve: left (01/18/2017) Radiofrequency ablation spinal (03/15/2017) Injection block nerve medial branch (11/04/2020) Injection block nerve medial branch (12/16/2020) Radiofrequency ablation spinal (01/27/2021) Injection block sacroiliac joint (01/12/2022) Endoscopy of upper gastrointestinal tract and dilation of esophageal stricture (03/13/2022) Colonoscopic polypectomy (03/13/2022) Injection block epidural caudal steroid (04/20/2022) INJECTION TREATMENT OF NERVE (06/07/2022) Injection spine transforaminal (06/08/2022) MOHS 1 STAGE H/N/HF/G (06/28/2022) Fusion Spine Lumbar Posterior with Navigation (12/07/2022) Cardiac catheterization (11/2023) Fusion Spine Cervical Anterior and Discectomy (Bilateral) (01/24/2024) Medications baclofen 20 mg oral tablet, 20 mg= 1 tabs, Oral, HS (at bedtime) benazepril-hydrochlorothiazide 20 mg-25 mg oral tablet, 1 tabs, Oral, qAM Colace 100 mg oral capsule, 100 mg, Oral, BID Crestor 20 mg oral tablet, 20 mg= 1 tabs, Oral, HS (at bedtime) Elavil 25 mg oral tablet, 25 mg= 1 tabs, Oral, HS (at bedtime) Emgality Prefilled Pen 120 mg/mL subcutaneous solution, 120 mg, Subcutaneous, qMonth HumaLOG KwikPen 100 units/mL injectable solution, 10 units, Subcutaneous, AC, PRN, If blood sugar >200 Lexapro 20 mg oral tablet, 20 mg= 1 tabs, Oral (more content not included)... Normal[facility].eGFRon [id number]/1.73 sq M.predicted MDRD (S/P/Bld) [Vol rate/Area]mL/min/{1.73_m2}Normal>=60[facility] HospitalComment on above:Result Comment: [facility] have implemented the eGFR calculation approach that does not havea coefficient for race and that conforms to [...] maximum of SCr/? or 1 Age = yearsPerformed By: #### ABORH #### [facility] (DEFAULT) [address] [facility] [address] [facility] (UNKNOWN) [address] [place], [place] [address]Ziilj Metabolic Profileon 69-34-1956Daoxf gap [Moles/Vol]6 mmol/LNormal4-12[facility] SystemComment on above:Performed By: #### ABORH #### [facility] (DEFAULT) [address] [facility] [address] [facility] (UNKNOWN) [address] [place], [place] [address]Cszfcnz [Mass/Vol]8.3 mg/dLLow8.5-10.3BC[facility] SystemComment on above:Performed By: #### ABORH #### [facility] (DEFAULT) [address] [facility] [address] [facility] (UNKNOWN) [address] [place], [place] [address]Piathdbm [Moles/Vol]105 mmol/VAowcqx50-522OgtzncnebAshtabula General Hospital SystemComment on above:Performed By: #### ABORH #### [facility] (DEFAULT) [address] [facility] [address] [facility] (UNKNOWN) [address] [facility], [place] [address]UB5 [Moles/Vol]28 mmol/XFhfhjo30-18AhdxjapqqAshtabula General Hospital SystemComment on above:Performed By: #### ABORH #### [facility] (DEFAULT) [address] [facility] [address] [facility] (UNKNOWN) [address] [place], [place] [address]Duvzccszfa [Mass/Vol]0.72 mg/dLNormal0.61-1.24[facility] SystemComment on above:Performed By: #### ABORH #### [facility] (DEFAULT) [address] [place] [address] [facility] (UNKNOWN) [address] [place], [place] [address]Iqutnix [Mass/Vol]93 mg/yJCwcpdn64-31PwsohfeafAshtabula General Hospital SystemComment on above:Performed By: #### ABORH #### [facility] (DEFAULT) [address] [place] [address] [facility] (UNKNOWN) [address] [place], [place] [address]Pegbdhyrt [Moles/Vol]3.8 mmol/LNormal3.4-4.8BCleveland [facility] SystemComment on above:Performed By: #### ABORH #### [facility] (DEFAULT) [address] [place] [address] [facility] (UNKNOWN) [address] [place], [place] [address]Xtbygi [Moles/Vol]139 mmol/FZlneyp998-606Lukojgz[facility] SystemComment on above:Performed By: #### ABORH #### [facility] (DEFAULT) [address] [place] [address] [facility] (UNKNOWN) [address] [place], [place] [address]Znyx nitrogen [Mass/Vol]12 mg/dLNormal8-26[facility] SystemComment on above:Performed By: #### ABORH #### [facility] (DEFAULT) [address] [place] [address] [facility] (UNKNOWN) [address] [place], [place] [address]Updg nitrogen/Creatinine [Mass ratio]16.7 mg/ttAguoke53.0-20.0 [facility] SystemComment on above:Performed By: #### ABORH #### [facility] (DEFAULT) [address] [place] [address] [facility] (UNKNOWN) [address] [place], [place] [address]Ghtyviwef Clinical Summaryon [id number] Clinical SummaryMulticare [facility] [address] [place] [address] [address] Clinical Summary Person Information Name: Donell Dumont Age: 48 Years : 1975 Sex: Male PCP: Jack Ortega DO Marital Status: Phone: PCP: Race: White Ethnicity: Not or Language: Indian Visit Id: Visit Reason: Speciality: Acuity: Enc Type: Observation Med Service: Surgery Arrival: 01/24/2024 06:35:02 Discharge: Dispo Type: Address: [address] [place], [place] [address] [id number] Diagnosis: Status post cervical spinal fusion Discharged To: Home Treatments: Devices/Equipment: Professional Skilled Services: Special Services and Community Resources: Mode of Discharge Transportation: Discharge Orders Diet Instruction Regular home diet Discharge Special Instructions You may drive when you are no longer taking pain medication Discharge Special Instructions Do not resume Aspirin, Plavix (Clopidogrel), Coumadin (Warfarin/Jantoven) and other blood thinners for 7 days, but you may resume all other medications. Discharge Special Instructions You may shower, but keep incision site dry for one week. Discharge Wound Care Remove dressing 5-7 days after discharge. Replace dressing as needed. Allergies codeine (Eruption) Functional Status: Sensory Deficits: None History of Falls: Mobility Assistance Prior to Admission: ADLs: Independent Gait: Steady Ambulation Assist: Assistive Device: Gait belt Special Orthopedic Devices: Rigid Cervical Collar Current Level of Assistance for Self-Care/Mobility: Cognitive Status: Orientation: Orientation Assessment Oriented x 4 Level of Consciousness: Alert Characteristics of Speech: Clear Aspiration Risk: None Affect/Behavior: Appropriate, Calm, Cooperative Laboratory or Other Results This Visit (last charted value for your 01/24/2024 visit) Hematology 01/24/2024 3:22 PM WBC: 10.1 x10 RBC: 4.70 x10 MCV: 88.4 fL -- Normal range between ( 80.0 and 100.0 ) MCHC: 33.2 % -- Normal range between ( 31.0 and 37.0 ) Hct: 41.5 % -- Normal range between ( 41.0 and 53.0 ) MCH: 29.4 pg -- Normal range between ( 27.0 and 35.0 ) Hgb: 13.8 g/dL -- Normal range between ( 13.5 and 17.5 ) Mean Platelet Volume: 8.8 fL -- Normal range between ( 6.7 and 10.6 ) Platelet: 257 x10 RDW: 14.2 % -- Normal range between ( 11.6 and 14.8 ) Chemistry 01/25/2024 5:21 AM Creatinine Lvl: 0.72 mg/dL -- Normal range between ( 0.61 and 1.24 ) BUN: 12 mg/dL -- Normal range between ( 8 and 26 ) Glucose Lvl: 93 mg/dL -- Normal range between ( 70 and 99 ) Potassium Lvl: 3.8 mmol/L -- Normal range between ( 3.4 and 4.8 ) Sodium Lvl: 139 mmol/L -- Normal range between ( 133 and 142 ) Calcium Lvl: 8.3 mg/dL -- Normal range between ( 8.5 and 10.3 ) Chloride: 105 mmol/L -- Normal range between ( 98 and 110 ) CO2: 28 mmol/L -- Normal range between ( 22 and 32 ) Anion Gap: 6 -- Normal range between ( 4 and 12 ) Estimated GFR: >60 mL/min/1.73m? BUN Crea Ratio: 16.7 -- Normal range between ( 10.0 and 20.0 ) Blood Bank 01/10/2024 2:39 PM ABO/Rh: O POS Antibody Screen: Negative ABSC POC Testing 01/25/2024 7:53 AM POC Gluc Random: 98 mg/dL -- Normal range between ( 70 and 99 ) Computed Tomography 01/24/2024 1:[address] Spine Cervical w/o Contrast: CT Spine Cervical w/o Contrast Diagnostic Radiology 01/24/2024 12:00 PM XR Spine Cervical 2 or 3 Views: XR Spine Cervical 2 or 3 Views Measurements: Height: Weight: Blood Pressure: 115 mmHg / BMI: Respiratory: Respirations: Unlabored Respiratory Symptoms: None Cardiovascular: Heart Sounds: Heart Rhythm: Regular Gastrointestinal: GI Symptoms: Bowel Sounds: Present Vital Signs: Temp Axillary: Temp Temporal Artery: 36.5 degC Temp Oral: 36.7 degC Temp Rectal: Apical Heart Rate: Peripheral Pulse Rate: 82 bpm Heart Rate: 76 bpm Respiratory Rate: 17 br/min Diet Diet: Feeding Tolerance: Appetite: Good Sundar Assessment: 23 Procedures Cardiac catheterization (11/2023) Immunizations No Immunizations Documented This Visit HERE ARE THE MEDICATION CHANGES THAT OCCURRED DURING YOUR HOSPITAL STAY Medications That Were Updated - Follow Current Instructions [id number], [address] [place], [place] [id number], [phone] Current: docusate (Colace 100 mg oral capsule) 100 Milligram Oral (given by mouth) 2 times a day. Refills: 0. Last Dose: Other Medications Current: ALPRAZolam (Xanax 0.5 mg oral tablet) 2 Tabs Oral (given by mouth) once a day (at bedtime). scheduled. Last Dose: Current: galcanezumab (Emgality Prefilled Pen 120 mg/mL subcutaneous solution) 120 Milligram Subcutaneous (under the skin) once a month. Last Dose: Current: insulin glargine (Semglee (Prefi (more content not included)...[facility]24 Neurosurgery Progress NoteSubjective mild hoarse voice but he says it is getting better no arm pain tolerating hard collar and pain meds Objective neck flat and dressing dry Vitals & Measurements T: 36.7 ?C (Oral) HR: 82 (Peripheral) RR: 17 BP: 115/73 SpO2: 98% HT: 191 cm WT: 99 kg BMI: 26.73 Additional Vitals No qualifying data available. Lab Results Microbiology - Current Encounter No qualifying data available. Diagnostic Results Diagnostic Radiology XR Spine Cervical 2 or 3 Views 01/24/24 13:25:20 IMPRESSION: Bones: Intraoperative changes of discectomy and interbody cage fusion at C5-6 and C6-7. Hardware grossly in expected position. Similar mild anterolisthesis at C4-5. Intervertebral discs: Intact height of C2-3 through C4-5. Facet joints: Similar advanced C3-4 and C4-5 osteoarthrosis (OA). Soft tissues: Intraoperative support lines and tubes. Please see operative report for a full description of the procedure performed. Signed By: Deya LEGER, Dakota Elias Computed Tomography CT Spine Cervical w/o Contrast 01/24/24 13:42:53 IMPRESSION: Postoperative changes compatible with interbody fusion at C5-C6 and C6-C7 in satisfactory alignment Signed By: Bonnie Stokes MD Physical Exam 5/5 rayo UE strength hard collar in place neck flat and dressing dry Medications Inpatient acetaminophen, 650 mg, Oral, q4hr, PRN baclofen, 20 mg, Oral, HS (at bedtime) benazepril-hydrochlorothiazide 20 mg-25 mg oral tablet, 1 tabs, Oral, qAM ceFAZolin, 2 g= 50 mL, IV Piggyback, q8hr Colace, 100 mg, Oral, BID Crestor, 20 mg, Oral, HS (at bedtime) Dextrose 10% in Water IV Piggyback, 125 mL, IV Piggyback, As Indicated, PRN Elavil, 25 mg, Oral, HS (at bedtime) glucagon, 1 mg, Subcutaneous, As Indicated, PRN insulin aspart LOW dose sliding scale BMI < 25, See order comments, Subcutaneous, ACHS Lantus Solostar Pen, 25 units, Subcutaneous, BID Lexapro, 20 mg, Oral, HS (at bedtime) magnesium hydroxide 8% oral suspension, 30 mL, Oral, TID Normal Saline Flush 0.9% injectable solution, 10 mL, IV Push, As Indicated, PRN Normal Saline Flush 0.9% injectable solution, 10 mL, IV Push, BID omeprazole, 40 mg, Oral, qAM Percocet 5/325 oral tablet, 2 tabs, Oral, q4hr, PRN Percocet 5/325 oral tablet, 1 tabs, Oral, q4hr, PRN Sodium Chloride 0.9% intravenous solution 1,000 mL, 1000 mL, IV Xanax, 1 mg, Oral, HS (at bedtime) Zofran, 4 mg= 2 mL, IV Push, q4hr, PRN Assessment/Plan Status post cervical spinal fusion assessment: 1. pod 1 C5-6-7 ACDFF 01/24/24 2. s/p L5-S1 PLIF 12/07/2022 3. HTN, depression, anxiety, asthma, recent melanoma 4. New diagnosis of diabetes - on Lantus, Januvia and insulin ss - last A1C 7.7 5. pre op Cervical mri: C4-5: mod right>left foraminal narrowing; C5-6: severe bilateral foraminal narrowing and mod central stenosis; C6-7: severe bilateral foraminal narrowing. 6. pre op Rayo UE emg/ncs: bilateral C6 and C7 radiculopathies 7. mild hoarse voice post op Plan: d/c home I encouraged him to call the office if his voice is still hoarse in a couple weeks and we can prescribe a steriod taper Ordered: oxyCODONE-acetaminophen, 1 tabs, Oral, q4hr, PRN, # 42 tabs, 0 Refill(s), Pharmacy: [facility]/pharmacy #[id number] Orders: acetaminophen, 650 mg, Oral, Tab, q4hr, PRN mild pain [1-3 on pain scale], First Dose: 01/24/24 12:29:00 EST, Dispense From Location: [facility], 01/24/24 12:29:00 EST ALPRAZolam, 1 mg, Oral, Tab, HS (at bedtime), First Dose: 01/24/24 14:00:00 EST, Dispense From Location: [facility], 01/24/24 12:23:00 EST amitriptyline, 25 mg, Oral, Tab, HS (at bedtime), First Dose: 01/24/24 21:00:00 EST, Dispense From Location: Main OR (SN), 01/24/24 12:23:00 EST baclofen, 20 mg, Oral, Tab, HS (at bedtime), First Dose: 01/24/24 21:00:00 EST, Dispense From Location: [facility]OB[facility]F, 01/24/24 12:23:00 EST benazepril-hydrochlorothiazide, 1 tabs, Oral, Tab, qAM, First Dose: 01/25/24 9:00:00 EST, Dispense From Location: [facility], 01/24/24 12:23:00 EST ceFAZolin, 2 g, IV Piggyback, Soln-IV, q8hr, infuse over 30 minutes, First Dose: 01/24/24 15:00:00 EST, Dispense From Location: Qnpfxmo-DJZ-BB, Prophylaxis- Pre/Post-Op, 01/24/24 15:00:00 EST Dextrose 10% in Water, 125 mL, IV Piggyback, Soln-IV, As Indicated for 20 doses, PRN other (see comment), infuse over 0.3 hr, First Dose: 01/24/24 16:03:00 EST, Stop Date: Limited # of times, Dispense From Location: Cfviodk-EBR-2O, 01/24/24 16:03:00 EST docusate, 100 mg, Oral, BID, # 60 caps, 0 Refill(s), Pharmacy: [facility]/pharmacy #[id number] docusate, 100 mg, Oral, Cap, BID, First Dose: 01/24/24 17:00:00 EST, Dispense From Location: Main OR (SN), 01/24/24 12:29:00 EST escitalopram, 20 mg, Oral, Tab, HS (at bedtime), First Dose: 01/24/24 21:00:00 EST, Dispense From Location: Main OR (SN), 01/24/24 12:23:00 EST glucagon, 1 mg, Subcutaneous, Injection, As Indicated for 20 doses, PRN other (see comment), First Dose: 01/24/24 16:03:00 EST, Stop Date: Limited # of (more content not included)...NormalThe [facility] HospitalPO Glucose Randomon [id number] [Mass/Vol]98 mg/qSYumkig43-03UmfrbwviaThe Christ Hospital Comment on above:Performed By: #### ABORH #### [facility] (DEFAULT) [address] [place] [address] [facility] (UNKNOWN) [address] [place], [place] [address]YCWhh [id number] distribution width (RBC) [Ratio] 14.2 %Xenbfj00.6-14.8BSelect Medical Cleveland Clinic Rehabilitation Hospital, Edwin ShawComment on above:Performed By: #### ABORH #### [facility] (DEFAULT) [address] [place] [address] [facility] (UNKNOWN) [address] [place], [place] [address]Eqmwtzqdwv (Bld) [Volume fraction]41.5 %Bztppx52.0-53.0 [facility] SystemComment on above:Performed By: #### ABORH #### [facility] (DEFAULT) [address] [facility] [address] [facility] (UNKNOWN) [address] [place], [place] [address]Gnkerbprro (Bld) [Mass/Vol]13.8 g/mYAzrmgg40.5-17.5BCleveland Clinic [facility] for Rehabilitation SystemComment on above:Performed By: #### ABORH #### [facility] (DEFAULT) [address] [facility] [address] [facility] (UNKNOWN) [address] [place], [place] [address]TEA (RBC) [Entitic mass]29.4 xnUlpvjp42.0-35.0[facility] SystemComment on above:Performed By: #### ABORH #### [facility] (DEFAULT) [address] [facility] [address] [facility] (UNKNOWN) [address] [place], [place] [address]TDEB21.2 %Pcdtmr24.0-37.0[facility] SystemComment on above:Performed By: #### ABORH #### [facility] (DEFAULT) [address] [place] [address] [facility] (UNKNOWN) [address] [place], [place] [address]AXH (RBC) [Entitic vol]88.4 jBLyrlsy97.0-100.0[facility] SystemComment on above:Performed By: #### ABORH #### [facility] (DEFAULT) [address] [facility] [address] [facility] (UNKNOWN) [address] [place], [place] [address]Ziurydml838 x10*3/keUEzorvn130-187Zqswpsjgt [facility] SystemComment on above:Performed By: #### ABORH #### [facility] (DEFAULT) [address] [place] [address] [facility] (UNKNOWN) [address] [place], [place] [address]Npsutcth mean volume (Bld) [Entitic vol]8.8 fLNormal6.7-10.6 [facility] HospitalComment on above:Performed By: #### ABORH #### [facility] (DEFAULT) [address] [place] [address] [facility] (UNKNOWN) [address] [place], [place] [address]UNX6.70 x10*6/mcLNormal4.30-5.80[facility] Comment on above:Performed By: #### ABORH #### [facility] (DEFAULT) [address] [place] [address] [facility] (UNKNOWN) [address] [place], [place] [address]GZF35.1 x10*3/mcLNormal4.5-11.0[facility] Comment on above:Performed By: #### ABORH #### [facility] (DEFAULT) [address] [place] [address] [facility] (UNKNOWN) [address] [place], [place] [address]Djnedyxhlbbw Note - Genericon 06-13-7040Tjbdamkukwwd Note - GenericChief Complaint Neck pain, hand numbness, arm weakness Jan for: C (5-6-7 ) ACDFF Reason for Consultation: Medical management of hypertension and diabetes mellitus Consulting Provider: Dr Bonnie Jack MD Date of Consult: 01/24/24 Assessment/Plan Diabetes mellitus Hypertension Dyslipidemia Depression Anxiety disorder Gastroesophageal reflux disease Postop neck pain Spinal stenosis s/p cervical spinal fusion Continue pain control as per primary team, DVT prophylaxis as per neurosurgery. All other postoperative management per primary team. Sliding scale insulin for hyperglycemia. Monitor blood glucose ACH S. Continue baseline home medications for chronic medical issues. Code Status: Full Resuscitation History of Present Illness 48-year-old male with past medical history of hypertension, dyslipidemia, diabetes mellitus, anxiety, depression, gastroesophageal flux disease, cervical stenosis was placed under observation after cervical fusion, postoperatively medical team is consulted for medical management of chronic comorbidities. Still has neck pain, denies any other symptoms at this time. CBC showed no leukocytosis, hemoglobin hematocrit stable, platelets within normal limit. Review of Systems Constitutional: [No fevers, chills, sweats] Eye: [No recent visual problems] ENMT: [No ear pain, nasal congestion, sore throat] Respiratory: [No shortness of breath, cough] Cardiovascular: [No Chest pain, palpitations, syncope] Gastrointestinal: [No nausea, vomiting, diarrhea] Genitourinary: [No hematuria] Mack/Lymph: [Negative for bruising tendency, swollen lymph glands] Endocrine: [Negative for excessive thirst, excessive hunger] Musculoskeletal: [No back pain, neck pain, joint pain, muscle pain, decreased range of motion] Integumentary: [No rash, pruritus, abrasions] Neurologic: [Alert & oriented X 4] Psychiatric: [No anxiety, depression] Objective Vitals & Measurements T: 36.3 ?C (Temporal Artery) TMIN: 36 ?C (Temporal Artery) TMAX: 36.7 ?C (Temporal Artery) HR: 91 (Peripheral) RR: 18 BP: 123/80 SpO2: 95% WT: 98.3 kg Additional Vitals No qualifying data available. Problem List/Past Medical History Ongoing Abnormal EKG Acid reflux Anxiety disorder Asthma Back pain Carpal tunnel syndrome Depression Diabetes EE (eosinophilic esophagitis) Hip pain Hypercholesteremia Hypertension Irritable bowel syndrome Melanoma Migraines Neck pain DIANA (obstructive sleep apnea) PONV (postoperative nausea and vomiting) Sacroiliac joint pain Seasonal allergies Spinal stenosis in cervical region Spinal stenosis of lumbar region Spondylosis Historical Chest pain Palpitation Pericarditis Degree of Malnutrition: No qualifying data available. Procedure/Surgical History hydrocele excision/repair (2007) Inguinal Hernia Repair (2007) Repair of right inguinal hernia (09/09/2007) Hydrocelectomy (09/09/2007) Umbilical hernia repair (2011) REMOVAL OF GALLBLADDER (2011) Lymph node dissection (2011) Excision of Right Inguinal Lymphatic, Open Approach, Diagnostic (09/09/2011) Injection steroid EPI 1 with sedation (11/30/2016) Injection sacroiliac nerve (12/21/2016) Injection sacroiliac nerve: left (01/18/2017) Radiofrequency ablation spinal (03/15/2017) Injection block nerve medial branch (11/04/2020) Injection block nerve medial branch (12/16/2020) Radiofrequency ablation spinal (01/27/2021) Injection block sacroiliac joint (01/12/2022) Endoscopy of upper gastrointestinal tract and dilation of esophageal stricture (03/13/2022) Colonoscopic polypectomy (03/13/2022) Injection block epidural caudal steroid (04/20/2022) INJECTION TREATMENT OF NERVE (06/07/2022) Injection spine transforaminal (06/08/2022) MOHS 1 STAGE H/N/HF/G (06/28/2022) Fusion Spine Lumbar Posterior with Navigation (12/07/2022) Cardiac catheterization (11/2023) Fusion Spine Cervical Anterior and Discectomy (Bilateral) (01/24/2024) Medications Inpatient acetaminophen, 650 mg, Oral, q4hr, PRN baclofen, 20 mg, Oral, HS (at bedtime) benazepril-hydrochlorothiazide 20 mg-25 mg oral tablet, 1 tabs, Oral, qAM ceFAZolin, 2 g= 50 mL, IV Piggyback, q8hr Colace, 100 mg, Oral, BID Crestor, 20 mg, Oral, HS (at bedtime) Dextrose 10% in Water IV Piggyback, 125 mL, IV Piggyback, As Indicated, PRN Elavil, 25 mg, Oral, HS (at bedtime) glucagon, 1 mg, Subcutaneous, As Indicated, PRN Lantus Solostar Pen, 25 units, Subcutaneous, BID Lexapro, 20 mg, Oral, HS (at bedtime) magnesium hydroxide 8% oral suspension, 30 mL, Oral, TID Normal Saline Flush 0.9% injectable solution, 10 mL, IV Push, As Indicated, PRN Normal Saline Flush 0.9% injectable solution, 10 mL, IV Push, BID omeprazole, 40 mg, Oral, qAM Percocet 5/325 oral tablet, 2 tabs, Oral, q4hr, PRN Percocet 5/325 oral tablet, 1 tabs, Oral, q4hr, PRN Sodium Chloride 0.9% intravenous solution 1,000 mL, 1000 mL, IV Xanax, 0 (more content not included)...[facility] Neurosurgery Progress Noteon [id number] Progress NoteSubjective no issues in pacu Objective Vitals & Measurements T: 36 ?C (Temporal Artery) HR: 92 (Monitored) RR: 13 BP: 137/80 SpO2: 95% HT: 191 cm WT: 97.5 kg (Estimated) WT: 97.5 kg (Dosing) BMI: 26.73 Additional Vitals No qualifying data available. Lab Results Microbiology - Current Encounter No qualifying data available. Physical Exam 5/5 rayo UE strength Medications Inpatient acetaminophen, 650 mg, Oral, q4hr, PRN baclofen, 20 mg, Oral, HS (at bedtime) benazepril-hydrochlorothiazide 20 mg-25 mg oral tablet, 1 tabs, Oral, qAM ceFAZolin, 2 g= 50 mL, IV Piggyback, Licensed Practical Nurse Instructor ceFAZolin, 2 g= 50 mL, IV Piggyback, q8hr Colace, 100 mg, Oral, BID Crestor, 20 mg, Oral, HS (at bedtime) Dilaudid, 0.5 mg= 0.5 mL, IV Push, q5min, PRN docusate sodium, 100 mg, Oral, BID Elavil, 25 mg, Oral, HS (at bedtime) fentaNYL, 50 mcg= 1 mL, IV Push, Once Lantus Solostar Pen, 25 units, Subcutaneous, BID Lexapro, 20 mg, Oral, HS (at bedtime) magnesium hydroxide 8% oral suspension, 30 mL, Oral, TID Normal Saline Flush 0.9% injectable solution, 10 mL, IV Push, As Indicated, PRN Normal Saline Flush 0.9% injectable solution, 10 mL, IV Push, As Indicated, PRN Normal Saline Flush 0.9% injectable solution, 10 mL, IV Push, BID NS 1,000 mL, 1000 mL, IV omeprazole, 40 mg, Oral, qAM Percocet 5/325 oral tablet, 2 tabs, Oral, q4hr, PRN Percocet 5/325 oral tablet, 1 tabs, Oral, q4hr, PRN Sodium Chloride 0.9% intravenous solution 1,000 mL, 1000 mL, IV Xanax, 0.5 mg, Oral, TID Zofran, 4 mg= 2 mL, IV Push, q4hr, PRN Assessment/Plan Status post cervical spinal fusion assessment: 1. pod 0 C5-6-7 ACDFF 01/24/24 2. s/p L5-S1 PLIF 12/07/2022 3. HTN, depression, anxiety, asthma, recent melanoma 4. New diagnosis of diabetes - on Lantus, Januvia and insulin ss - last A1C 7.7 5. pre op Cervical mri: C4-5: mod right>left foraminal narrowing; C5-6: severe bilateral foraminal narrowing and mod central stenosis; C6-7: severe bilateral foraminal narrowing. 6. pre op Rayo UE emg/ncs: bilateral C6 and C7 radiculopathies Plan: CT then to the floor Ordered: oxyCODONE-acetaminophen, 1 tabs, Oral, q4hr, PRN, # 42 tabs, 0 Refill(s), Pharmacy: [facility]/pharmacy #[id number] Orders: acetaminophen, 650 mg, Oral, Tab, q4hr, PRN mild pain [1-3 on pain scale], First Dose: 01/24/24 12:29:00 EST, Dispense From Location: S[facility]omll-NPF-QK, 01/24/24 12:29:00 EST ALPRAZolam, 0.5 mg, Oral, Tab, TID, First Dose: 01/24/24 14:00:00 EST, Dispense From Location: [facility], 01/24/24 12:23:00 EST amitriptyline, 25 mg, Oral, Tab, HS (at bedtime), First Dose: 01/24/24 21:00:00 EST, Dispense From Location: Main OR (SN), 01/24/24 12:23:00 EST baclofen, 20 mg, Oral, Tab, HS (at bedtime), First Dose: 01/24/24 21:00:00 EST, Dispense From Location: [facility], 01/24/24 12:23:00 EST benazepril-hydrochlorothiazide, 1 tabs, Oral, Tab, qAM, First Dose: 01/25/24 9:00:00 EST, Dispense From Location: [facility], 01/24/24 12:23:00 EST ceFAZolin, 2 g, IV Piggyback, Soln-IV, q8hr, infuse over 30 minutes, First Dose: 01/24/24 15:00:00 EST, Dispense From Location: Cmtgdcp-CYH-FD, Prophylaxis- Pre/Post-Op, 01/24/24 15:00:00 EST ceFAZolin, 2 g, IV Piggyback, Soln-IV, Licensed Practical Nurse Instructor, infuse over 30 minutes, First Dose: 01/24/24 0:22:00 EST, Dispense From Location: Egqmzrd-XYE-GA, Prophylaxis- Pre/Post-Op, 01/24/24 0:22:00 EST docusate, 100 mg, Oral, Cap, BID, First Dose: 01/24/24 17:00:00 EST, Dispense From Location: Main OR (SN), 01/24/24 12:23:00 EST docusate, 100 mg, Oral, BID, # 60 caps, 0 Refill(s), Pharmacy: [facility]/pharmacy #[id number] docusate, 100 mg, Oral, Cap, BID, First Dose: 01/24/24 17:00:00 EST, Dispense From Location: Main OR (SN), 01/24/24 12:29:00 EST escitalopram, 20 mg, Oral, Tab, HS (at bedtime), First Dose: 01/24/24 21:00:00 EST, Dispense From Location: Main OR (SN), 01/24/24 12:23:00 EST insulin glargine, 25 units, Subcutaneous, Injection, BID, First Dose: 01/24/24 21:00:00 EST, Dispense From Location: [facility], 01/24/24 12:23:00 EST magnesium hydroxide, 30 mL, Oral, Susp, TID, First Dose: 01/24/24 14:00:00 EST, Dispense From Location: Main OR (SN), 01/24/24 12:29:00 EST omeprazole, 40 mg, Oral, Cap-DR, qAM, First Dose: 01/25/24 9:00:00 EST, Dispense From Location: Main OR (SN), 01/24/24 12:23:00 EST ondansetron, 4 mg, IV Push, Injection, q4hr, PRN nausea, First Dose: 01/24/24 12:29:00 EST, Dispense From Location: Swwosbe-ABG-JM, 01/24/24 12:29:00 EST oxyCODONE-acetaminophen, 1 tabs, Oral, Tab, q4hr, PRN pain, First Dose: 01/24/24 12:29:00 EST, Dispense From Location: [facility]ub[facility]PM, 01/24/24 12:29:00 EST oxyCODONE-acetaminophen, 2 tabs, Oral, Tab, q4hr, PRN pain, First Dose: 01/24/24 12:29:00 EST, Dispense From Location: Pixercl-NLD-II, 01/24/24 12:29:00 EST rosuvastatin, 20 mg, Oral, Tab, HS (at bedtime), First Dose: 01/24/24 21:00:00 EST, Dispense From Location: Main OR (SN), 01/24/24 12:23:00 EST sodium chloride, 10 mL, IV Push, Injection, As (more content not included)... [facility] HospitalOperative Reporton [id number] ReportIndication for Surgery 1. s/p L5-S1 PLIF 12/07/2022 2. pre op MRI Lumbar 10/27/2021: L5-S1 disc bulge with severe bilateral neuroforaminal stenosis withmass effect on the L5 nerves. L4-5 disc bulge with mild left, moderate right foraminal narrowing. T12-L1 small disc protrusion with mild central canal stenosis. 3. HTN, depression, anxiety, asthma, recent melanoma 4. Chronic neck pain and bilateral hand numbness and subjective arm weakness 5. New diagnosis of diabetes - on Lantus, Januvia and insulin ss - last A1C 7.7 6. Cervical mri: C4-5: mod right>left foraminal narrowing; C5-6: severe bilateral foraminal narrowing and mod central stenosis; C6-7: severe bilateral foraminal narrowing. 7. Rayo UE emg/ncs: bilateral C6 and C7 radiculopathies 8. Cervical xrays: no intersegmental instability Preoperative Diagnosis CERVICAL STENOSIS, CERVICAL RADICULOPATHY 1. s/p L5-S1 PLIF 12/07/2022 2. pre op MRI Lumbar 10/27/2021: L5-S1 disc bulge with severe bilateral neuroforaminal stenosis withmass effect on the L5 nerves. L4-5 disc bulge with mild left, moderate right foraminal narrowing. T12-L1 small disc protrusion with mild central canal stenosis. 3. HTN, depression, anxiety, asthma, recent melanoma 4. Chronic neck pain and bilateral hand numbness and subjective arm weakness 5. New diagnosis of diabetes - on Lantus, Januvia and insulin ss - last A1C 7.7 6. Cervical mri: C4-5: mod right>left foraminal narrowing; C5-6: severe bilateral foraminal narrowing and mod central stenosis; C6-7: severe bilateral foraminal narrowing. 7. Rayo UE emg/ncs: bilateral C6 and C7 radiculopathies 8. Cervical xrays: no intersegmental instability Postoperative Diagnosis 1. s/p L5-S1 PLIF 12/07/2022 2. pre op MRI Lumbar 10/27/2021: L5-S1 disc bulge with severe bilateral neuroforaminal stenosis withmass effect on the L5 nerves. L4-5 disc bulge with mild left, moderate right foraminal narrowing. T12-L1 small disc protrusion with mild central canal stenosis. 3. HTN, depression, anxiety, asthma, recent melanoma 4. Chronic neck pain and bilateral hand numbness and subjective arm weakness 5. New diagnosis of diabetes - on Lantus, Januvia and insulin ss - last A1C 7.7 6. Cervical mri: C4-5: mod right>left foraminal narrowing; C5-6: severe bilateral foraminal narrowing and mod central stenosis; C6-7: severe bilateral foraminal narrowing. 7. Rayo UE emg/ncs: bilateral C6 and C7 radiculopathies 8. Cervical xrays: no intersegmental instability Operation Fusion Spine Cervical Anterior and Discectomy, C (5-6-7) ACDFF, Bilateral Saber C implants at C5-6 & C6-7 Surgeon(s) Layne LEGER, Feliciano Chapa (Surgeon - Primary) Registered Appraiser Maurice Davenport (Life Sciences Teacher) Anesthesia General Jimubdouglas LEGER, Ziggy Gomez (Piece Hand) Tegan Seals (Provider) Estimated Blood Loss 5cc Urine Output no murphy Findings stenosis at c5-6-7 Specimen(s) none Complications none Technique The patient was brought to the OR under the care of anesthesia and after intubation was placed supine with the head on a donut and a roll under the shoulders and the shoulders taped caudally. The right side of the anterior neck was prepped and draped in the typical fashion. An incision was created with the scalpel centered over the right medial sternocleidomastoid and I dissected through the platysma with bovie. I performed a blunt dissection keeping the carotid lateral and esophagus and trachea medial. I opened the anterior spinal fascia with bipolar and mets. I placed needles in the c5-6 and c6-7 discs and confirmed my levels with a c arm image. I placed my Trimline retractor at c5-6 and gave kaspar pin distraction and removed the c5-6 disc with a curette and drilled with the 6 extra coarse caitlin bit and identified bilateral foraminal stenosis and opened the exiting foramen bilaterally with a 3 punch. I placed a 7 mm titanium interbody cage filled with dbm and placed 3 spikes to secure the implant and locked the spikes in place. I placed my Trimline retractor at c6-7 and gave kaspar pin distraction and removed the c6-7 disc with a curette and drilled with the 6 extra coarse caitlin bit and identified bilateral foraminal stenosis and opened the exiting foramen bilaterally with a 3 punch. I placed a 7 mm titanium interbody cage filled with dbm and placed 3 spikes to secure the implant and locked the spikes in place. Next I secured the fixation plate at C5-6-7. I obtained a c arm image and confirmed the adequacy of the hardware. I irrigated the neck and obtained hemostasis with bipolar and closed platysma with interrupted 3.0 vicryl and closed the skin witha running subcuticular monocryl suture. Steri strips were placed. Hard collar was placed. All counts were correct. Blood loss was minimal. This surgical procedure was assisted by my physician?s assistant plant manager. Her presence was needed throughout the case for positioning the surgical instruments as well as primarily assisting me through (more content not included)...Normal[facility] Glucose Randomon [id number] [Mass/Vol]149 mg/dL Aqwg48-88VmlgvmyxbThe Christ HospitalComment on above:Performed By: #### CD:[id number] ####[facility] [place], [place] [address]Uobnqie [Mass/Vol]131 mg/mJKngy68-26JfdnpgbkvThe Christ HospitalComment on above:Performed By: #### ABORH #### [facility] (DEFAULT) [address] [place] [address] [facility] (UNKNOWN) [address] [place], [place] [address]Gssotmu [Mass/Vol]132 mg/eFXxib34-73FgbgpscxqThe Christ HospitalComment on above:Performed By: #### CD:[id number] ####[facility] [place] [address].UA Microscp Aon [id number] RBC Quant0 /HPFNormal0-5BSelect Medical Cleveland Clinic Rehabilitation Hospital, Edwin ShawComment on above:Performed By: #### .Urinalysis Microscopic Auto ####[address] [place], [place] [address]PB WBC Quant0 /HPFNormal0-5BSelect Medical Cleveland Clinic Rehabilitation Hospital, Edwin ShawComment on above:Performed By: #### .Urinalysis Microscopic Auto ####[address] [place] [address].eGFRon [id number]/1.73 sq M.predicted MDRD (S/P/Bld) [Vol rate/Area]mL/min/{1.73_m2} Normal>=60The Christ HospitalComment on above:Result Comment: [facility] Laboratories have implemented the eGFR calculation approach that does not havea coefficient for race and that conforms to [...] maximum of SCr/? or 1 Age = yearsPerformed By: #### EGFR ####[address] [address]HOK/Rhon [id number]/Rhsd 01/23 ABO/Rh: O POSNoBarberton Citizens HospitalComment on above:Performed By: #### ABORH #### [facility] (DEFAULT) [address] [place] [address] [facility] (UNKNOWN) [address] [place], [place] [address]JKHZ Autoon [id number] AutoNegativeNoBarberton Citizens HospitalComment on above:Performed By: #### ASA ####[facility] (UNKNOWN)[address] [place], [place] [address]QHO w/ Diffon 78-51-7962Heupwvexmjf distribution width (RBC) [Ratio]13.9 %Zfmqaq64.6-14.8 [facility] HospitalComment on above:Performed By: #### CBC ####[address] [address]Ebxtdtkxek (Bld) [Volume fraction]44.8 %Qufeah24.0-53.0[facility] Comment on above:Performed By: #### CBC ####[address] [address]Opcrtrwumn (Bld) [Mass/Vol]15.1 g/cGBlrovs55.5-17.5 [facility] HospitalComment on above:Performed By: #### CBC ####[address] [address]XVC (RBC) [Entitic mass]29.7 ixTwkjbe03.0-35.0[facility] HospitalComment on above:Performed By: #### CBC ####[address] [address]KPEX02.7 %Eifvzb58.0-37.0[facility] Comment on above:Performed By: #### CBC ####[address] [address]RIO (RBC) [Entitic vol]88.0 ePErmdsu15.0-100.0 [facility] HospitalComment on above:Performed By: #### CBC ####[facility] [place], [place] [address]Feythkit848 x10*3/prWTnjljn445-658Usahsunzc [facility] Health SystemComment on above:Performed By: #### CBC ####[facility] [place], [place] [address]Bjglqlaj mean volume (Bld) [Entitic vol]9.1 fLNormal6.7-10.6BSelect Medical Cleveland Clinic Rehabilitation Hospital, Edwin ShawComment on above:Performed By: #### CBC ####[address] [address]SQI8.08 x10*6/mcLNormal4.30-5.80 [facility] HospitalComment on above:Performed By: #### CBC ####[facility] [place] [address]LUB0.8 x10*3/mcLNormal4.5-11.0[facility] HospitalComment on above:Performed By: #### CBC ####[facility] [place], [place] [address]VBXbs 83-91-4817Bzybrwm [Mass/Vol]4.6 g/dLNormal3.2-4.9BSelect Medical Cleveland Clinic Rehabilitation Hospital, Edwin ShawComment on above:Performed By: #### ABORH #### [facility] (DEFAULT) [address] [place] [address] [facility] (UNKNOWN) [address] [place], [place] [address]Jweagkh/Globulin [Mass ratio]1.6 {ratio}Normal1.1-2.2BSelect Medical [facility] Clinic Rehabilitation Hospital, Edwin ShawComment on above:Performed By: #### ABORH #### [facility] (DEFAULT) [address] [place] [address] [facility] (UNKNOWN) [address] [place], [place] [address]Nnr Phos49 IU/UBaabaw50-44Ldyjjvrqp [facility] SystemComment on above:Performed By: #### ABORH #### [facility] (DEFAULT) [address] [facility] [address] [facility] (UNKNOWN) [address] [facility], [place] [address]TXF [Catalytic activity/Vol]37 U/AZoelqh15-71CwvyncesxAshtabula General Hospital SystemComment on above:Performed By: #### ABORH #### [facility] (DEFAULT) [address] [facility] [address] [facility] (UNKNOWN) [address] [place], [place] [address]Phpgd gap [Moles/Vol]7 mmol/LNormal4-12[facility] SystemComment on above:Performed By: #### ABORH #### [facility] (DEFAULT) [address] [facility] [address] [facility] (UNKNOWN) [address] [place], [place] [address]AAD [Catalytic activity/Vol]30 U/BDbcgeh28-42PesqlfwkxThe Christ HospitalComment on above:Performed By: #### ABORH #### [facility] (DEFAULT) [address] [facility] [address] [facility] (UNKNOWN) [address] [place], [place] [address]Kgjs Total0.9 mg/dLNormal0.3-1.2BCleveland Clinic [facility] System Comment on above:Performed By: #### ABORH #### [facility] (DEFAULT) [address] [facility] [address] [facility] (UNKNOWN) [address] [place], [place] [address]Gpwyfbs [Mass/Vol]8.9 mg/dLNormal8.5-10.3BCleveland Clinic Children's Hospital for Rehabilitation SystemComment on above:Performed By: #### ABORH #### [facility] (DEFAULT) [address] [facility] [address] [facility] (UNKNOWN) [address] [facility], [place] [address]Txnkizrn [Moles/Vol]100 mmol/OJucamp41-877LflevxvxvAshtabula General Hospital SystemComment on above:Performed By: #### ABORH #### [facility] (DEFAULT) [address] [facility] [address] [facility] (UNKNOWN) [address] [facility], [place] [address]OA4 [Moles/Vol]28 mmol/WIwuuim77-51YezeohgljAshtabula General Hospital SystemComment on above:Performed By: #### ABORH #### [facility] (DEFAULT) [address] [facility] [address] [facility] (UNKNOWN) [address] [facility], [place] [address]Czxwdjpbqf [Mass/Vol]0.94 mg/dLNormal0.61-1.24[facility] SystemComment on above:Performed By: #### ABORH #### [facility] (DEFAULT) [address] [facility] [address] [facility] (UNKNOWN) [address] [facility], [place] [address]Magcisp [Mass/Vol]88 mg/cCYpkmmn96-91MirsyyatgAshtabula General Hospital SystemComment on above:Performed By: #### ABORH #### [facility] (DEFAULT) [address] [facility] [address] [facility] (UNKNOWN) [address] [facility], [place] [address]Lhogrrexm [Moles/Vol]3.6 mmol/LNormal3.4-4.8BCleveland Clinic Children's Hospital for Rehabilitation SystemComment on above:Performed By: #### ABORH #### [facility] (DEFAULT) [address] [facility] [address] [facility] (UNKNOWN) [address] [facility], [place] [address]Xnigmrm [Mass/Vol]7.4 g/dLNormal6.5-8.1BCleveland Clinic Children's Hospital for Rehabilitation SystemComment on above:Performed By: #### ABORH #### [facility] (DEFAULT) [address] [facility] [address] [facility] (UNKNOWN) [address] [facility], [place] [address]Qoxcwa [Moles/Vol]135 mmol/LEfymxj388-704Ljxtffowl Valley Health SystemComment on above:Performed By: #### ABORH #### [facility] (DEFAULT) [address] [facility] [address] [facility] (UNKNOWN) [address] [place], [place] [address]Xzrq nitrogen [Mass/Vol]13 mg/dLNormal8-26[facility] SystemComment on above:Performed By: #### ABORH #### [facility] (DEFAULT) [address] [facility] [address] [facility] (UNKNOWN) [address] [facility], [place] [address]Jixs nitrogen/Creatinine [Mass ratio]13.8 mg/icAjxedo86.0-20.0 [facility] SystemComment on above:Performed By: #### ABORH #### [facility] (DEFAULT) [address] [facility] [address] [facility] (UNKNOWN) [address] [place], [place] [address]Brtk Autoon 87-77-4424Bxnk Absolute0.0 x10*3/mcLNormal0.0-0.2 [facility] SystemComment on above:Performed By: #### ABORH #### [facility] (DEFAULT) [address] [facility] [address] [facility] (UNKNOWN) [address] [place], [place] [address]Iclbqbhmw/100 WBC (Bld)0.3 %Normal0.0-1.2BCleveland Clinic Children's Hospital for Rehabilitation SystemComment on above:Performed By: #### ABORH #### [facility] (DEFAULT) [address] [facility] [address] [facility] (UNKNOWN) [address] [place], [place] [address]Rmh Absolute0.1 x10*3/mcLNormal0.0-0.4BCleveland Clinic Children's Hospital for Rehabilitation SystemComment on above:Performed By: #### ABORH #### [facility] (DEFAULT) [address] [facility] [address] [facility] (UNKNOWN) [address] [place], [place] [address]Yeyapgdofry/100 WBC (Bld)1.9 %Normal0.0-6.1BCleveland Clinic Children's Hospital for Rehabilitation SystemComment on above:Performed By: #### ABORH #### [facility] (DEFAULT) [address] [facility] [address] [facility] (UNKNOWN) [address] [facility], [place] [address]Zitly Absolute2.1 x10*3/mcLNormal1.0-4.8BCleveland Clinic Children's Hospital for Rehabilitation SystemComment on above:Performed By: #### ABORH #### [facility] (DEFAULT) [address] [facility] [address] [facility] (UNKNOWN) [address] [facility], [place] [address]Twhfmkkcfmn/100 WBC (Bld)36.1 %Hbdfeo76.2-40.8BCleveland Clinic Children's Hospital for Rehabilitation SystemComment on above:Performed By: #### ABORH #### [facility] (DEFAULT) [address] [facility] [address] [facility] (UNKNOWN) [address] [facility], [place] [address]Fhnx Absolute0.5 x10*3/mcLNormal0.3-1.1BCleveland Clinic Children's Hospital for Rehabilitation SystemComment on above:Performed By: #### ABORH #### [facility] (DEFAULT) [address] [facility] [address] [facility] (UNKNOWN) [address] [place], [place] [address]Vjogbjfne/100 WBC (Bld)9.1 %Normal4.7-13.9BCleveland Clinic Children's Hospital for Rehabilitation SystemComment on above:Performed By: #### ABORH #### [facility] (DEFAULT) [address] [facility] [address] [facility] (UNKNOWN) [address] [facility], [place] [address]Slxxvr Absolute3.1 x10*3/mcLNormal1.8-7.7BCleveland Clinic Children's Hospital for Rehabilitation SystemComment on above:Performed By: #### ABORH #### [facility] (DEFAULT) [address] [facility] [address] [facility] (UNKNOWN) [address] [place], [place] [address]Wvalny Auto52.6 %Ksbrmx26.2-70.8BSelect Medical [facility], [facility] Shaw Comment on above:Performed By: #### ABORH #### [facility] (DEFAULT) [address] [place] [address] [facility] (UNKNOWN) [address] [place], [place] [address]Poo A1con 94-03-9235Wyrmeib [Mass/Vol]140 mg/xTIuez85-720 [facility] HospitalComment on above:Result Comment: Mathematical Calc approx. The mean gluc equivalency of N5yTmljuokkq By: #### ABORH #### [facility] (DEFAULT) [address] [place] [address] [facility] (UNKNOWN) [address] [place], [place] [address]Bkz A1c6.5 % Y6jQbtk3.0-5.6BSelect Medical [facility] Comment on above:Result Comment: Reference Range: 4.0 - 5.6 % Normal 5.7 - 6.4 % Pre-Diabetes > 6.5 % DiabetesPerformed By: #### ABORH #### [facility] (DEFAULT) [address] [place] [address] [facility] (UNKNOWN) [address] [place], [place] [address]BTar 23-01-2892IDA Coag (PPP) [Relative time]0.9 {INR}Normal <=3.5BSelect Medical Cleveland Clinic Rehabilitation Hospital, Edwin ShawComment on above:Result Comment: INR has no normal range. INR Therapeutic range is: 2.0-3.0 (AF, CVA, TIAs, DVT prophylaxis, acute DVT) 2.5-3.5 ([facility] heart valves, recurrent thrombosis/emboli)Performed By: #### PTINR ####[facility] [place], [place] [address]TY Coag (PPP) [Time]10.1 sNormal9.2-12.0The [facility] HospitalComment on above: Performed By: #### PTINR ####[facility] [place], [place] [address]WNGpw 82-59-8797tLRI Coag (Bld) [Time]23.5 sNormal 19.5-28.2BlanMarion Hospital SystemComment on above:Performed By: #### ABORH #### [facility] (DEFAULT) [address] [facility] [address] [facility] (UNKNOWN) [address] [facility], [place] [address]NN w Culture if Indon 93-43-5806Lzagl (U)ColorlessNormalYellow [facility] SystemComment on above:Performed By: #### ABORH #### [facility] (DEFAULT) [address] [facility] [address] [facility] (UNKNOWN) [address] [facility], [place] [address]Phyxhsq Ql (U)NegativeNormalNegativeAshtabula General Hospital SystemComment on above:Performed By: #### ABORH #### [facility] (DEFAULT) [address] [facility] [address] [facility] (UNKNOWN) [address] [facility], [place] [address]VL BloodNegativeNormalNegativeAshtabula General Hospital System Comment on above:Performed By: #### ABORH #### [facility] (DEFAULT) [address] [facility] [address] [facility] (UNKNOWN) [address] [facility], [place] [address]RB ClarityClearNormalClearAshtabula General Hospital SystemComment on above:Performed By: #### ABORH #### [facility] (DEFAULT) [address] [facility] [address] [facility] (UNKNOWN) [address] [facility], [place] [address]OP GlucoseNormalNormalNegativeSelect Medical [facility] Comment on above:Performed By: #### ABORH #### [facility] (DEFAULT) [address] [facility] [address] [facility] (UNKNOWN) [address] [facility], [place] [address]WT Leukocyte EsteraseNegativeNormalNegativeAshtabula General Hospital SystemComment on above:Performed By: #### ABORH #### [facility] (DEFAULT) [address] [facility] [address] [facility] [address] [facility], [place] [address]WC NitriteNegativeNormalNegWVUMedicine [facility]ville [facility] System Comment on above:Performed By: #### ABORH #### [facility] (DEFAULT) [address] [facility] [address] [facility] [address] [facility], [place] [address]VS pH6.5Lstarv9.5 - 7.8BlanMarion Hospital SystemComment on above:Performed By: #### ABORH #### [facility] (DEFAULT) [address] [facility] [address] [facility] (UNKNOWN) [address] [facility], [place] [address]RO ProteinNegativeNormalNegativeAshtabula General Hospital System Comment on above:Performed By: #### ABORH #### [facility] (DEFAULT) [address] [facility] [address] [facility] (UNKNOWN) [address] [facility], [place] [address]ZC SourceClean CatchNormMercy Health SystemComment on above:Performed By: #### ABORH #### [facility] (DEFAULT) [address] [facility] [address] [facility] [address] [facility], [place] [address]BB Spec Grav1.497Ocipao9.003-1.035[facility] SystemComment on above:Performed By: #### ABORH #### [facility] (DEFAULT) [address] [facility] [address] [facility] [address] [facility], [place] [address]VL UrobilinogenNormalNormal0.2 - 1.0[facility] SystemComment on above:Performed By: #### ABORH #### [facility] (DEFAULT) [address] [facility] [address] [facility] [address] [facility], [place] [address]Kvhhvymaepxn (U) [Mass/Vol]NegativeNormalNegativeThe Christ HospitalComment on above:Performed By: #### ABORH #### [facility] (DEFAULT) [address] [place] [address] [facility] (UNKNOWN) [address] [place], [place] [address]Ppiuofednqgu Office/Clinic Noteon 81-91-8989Quwxddzvenmg Office/Clinic NoteChief Complaint Cervical follow up-EMG, MRI, XR History of Present Illness The purpose of this visit is to review his cervical mri, cervical xrays and rayo UE emg/ncs. Symptoms have not changed. He does not want to continue any pain management. 12/02/2023 visit: One year post op follow up appointment s/p L5-S1 PLIF 12/07/2022 No complaint. No leg pain. He is happy he had back surgery. Today he wants to talk about his neck. I do not have any imaging to review. He thinks he has carpaltunnel syndrome based on a emg a few years ago. Neck pain (with some headaches): started 1 1/2 yr ago, midline pain, constant daily pain, 03/20 - 11/18 pain, activity-dependent pain. Bilateral arm pain: none Bilateral arm numbness: started 1 1/2 yr ago, some in the elbows but mostly in the hands. Bilateral arm weakness: started 1 1/2 yr ago, progressive, drops objects. Balance changes: none but he describes poor balance for a long time. Conservative measures: PT, pain management, narcotics, nsaid, gabapentin, steroid. 02/28/2023 Visit: Three month post op follow up appointment s/p L5-S1 PLIF on 12/07/2022 No complaint. No leg pain. No incision concerns. He is happy with the result of surgery. 01/03/2023 Visit: One month post op follow up appointment [...] he is very happy he had the surgery [1] Review of Systems General Cardiovascular EENMT Gastrointestinal Genitourinary Hematologic/Lymphatic Musculoskeletal Neurological Headache: No Psychiatric Respiratory Skin Physical Exam Vitals & Measurements HR: 95 (Peripheral) BP: 124/70 SpO2: 98 HT: 191 cm WT: 97.5 kg WT: 97.5 kg (Dosing) BMI: 26.73 Additional Vitals BP Position/Location: Sitting General: Alert and oriented, well nourished, no [...] EOMI, PERRLA, TML, FS, No drift 5/5 rayo UE strength 5/5 rayo LE strength 2+ UE reflexes 2+ LE reflexes Clonus absent Assessment/Plan Assessment: 1. s/p L5-S1 PLIF 12/07/2022 2. pre op MRI Lumbar 10/27/2021: L5-S1 disc bulge with severe bilateral neuroforaminal stenosis withmass effect on the L5 nerves. L4-5 disc bulge with mild left, moderate right foraminal narrowing. T12-L1 small disc protrusion with mild central canal stenosis. 3. HTN, depression, anxiety, asthma, recent melanoma 4. Chronic neck pain and bilateral hand numbness and subjective arm weakness 5. New diagnosis of diabetes - on Lantus, Januvia and insulin ss - last A1C 7.7 6. Cervical mri: C4-5: mod right>left foraminal narrowing; C5-6: severe bilateral foraminal narrowing and mod central stenosis; C6-7: severe bilateral foraminal narrowing. 7. Rayo UE emg/ncs: bilateral C6 and C7 radiculopathies 8. Cervical xrays: no intersegmental instability Plan: I recommend C5-6-7 ACDFF. Described risks included bleeding, infection, neurological injury, spinal cord injury, stroke, c5 palsy, csf leak, , medical complication, vocal change, swallowing difficulty, ptosis, hardware failure, continued pain and numbness, and need for further procedures or surgeries. He would like to proceed with surgery. Time Spent with the Patient I have personally spent 30 minutes on this date, directly related to [...] Hypertension Irritable bowel syndrome Melanoma Migraines Neck umu (more content not included)...[facility] Thyrotropin [Units/volume] in Serum or PlasmaOrdered By: Jack Ortega on [id number] Qn1.70 m[IU]/L0.45-5.33Kindred HealthcareThyroxine (T4) free [Mass/volume] in Serum or PlasmaOrdered By: Jack Ortega on 66-55-7595Ujdx T4 [Mass/Vol]0.74 ng/dL0.61-1.12[facility] Triiodothyronine (T3) [Mass/volume] in Serum or PlasmaOrdered By: Jack Ortega on 59-89-2004N9 [Mass/Vol]1.62 ng/mL0.87-1.78[facility] MRI Spine Cervical w/o Contraston [id number] Spine Cervical w/o ContrastMRI cervical spine without contrast from 12/11/2023 Indication: Weakness Comparison: None Technique: Multiplanar and multisequential MRI images of the cervical spine were obtained . No contrast was administered Findings: The alignment and marrow signal intensity of the cervical spine are normal. The signal intensity and morphology of the cervical spinal cord are within normal limits. There is no evidence of marrow edema on STIR. C2-3: Moderate to severe left and moderate right-sided facet arthropathy. Mild uncovertebral degenerative changes. Moderate left-sided neuroforaminal narrowing. C3-4: Moderate disc spur complex. Moderate to severe right and moderate left- sided facet arthropathy. Severe bilateral neuroforaminal narrowing with encroachment of the bilateral C4 nerve roots. Mildconstriction of the bilateral lateral recesses and mild spinal canal stenosis. C4-5: Moderate to severe right and mild to moderate left-sided facet arthropathy. Moderate bilateral neuroforaminal narrowing, worse on the right. C5-6: Moderate to severe disc spur complex slightly eccentric to the right. Mild bilateral facet arthropathy. Severe bilateral neuroforaminal narrowing with encroachment of the bilateral C6 nerve roots. Moderate to severe constriction of the right lateral recesses and mild to moderate spinal canal stenosis. C6-7: Moderate disc spur complex and mild to moderate left-sided facet arthropathy. Severe bilateral neuroforaminal narrowing with encroachment of the bilateral C7 nerve roots. Mild spinal canal stenosis. C7-T1: Mild to moderate bilateral facet arthropathy. Mild bilateral neuroforaminal narrowing. A 9 mm nodule in the left thyroid lobe. Impression: 1. Overall moderate multilevel degenerative changes of the cervical spine resulting in varying degrees of neuroforaminal narrowing and spinal canal stenosis, as described above. 2. A 9 mm nodule in the thyroid lobe. Consider a follow-up ultrasound study for further evaluation. Final Dictated by: Bonnie Stokes MD Dictated DT/TM: 12/11/2023 4:17 pm Signed by: Bonnie Stokes MD Signed (Electronic Signature): 12/11/2023 4:27 pm (If Report Is Signed, Electronically Signed in Other Vendor System)Normal [facility] HospitalXR Spine Cervical 4 or 5 Viewson [id number] Spine Cervical 4 or 5 ViewsC-spine radiographs on 12/11/2023 Clinical History: Neck pain Comparison: C-spine MRI on 12/11/2023 Findings: 5 views of the cervical spine were obtained. The vertebral body heights and alignment are within normal limits. No radiographic evidence of acute fracture or dislocation. Moderate multilevel facet arthropathy and mild endplate degenerative changes. Limited range of motion in flexion and extension. The prevertebral soft tissue is within normal limits. Impression: Moderate degenerative changes of the cervical spine were significantly limited range of motion on flexion and extension. Final Dictated by: Bonnie Stokes MD Dictated DT/TM: 12/11/2023 4:28 pm Signed by: Bonnie Stokes MD Signed (Electronic Signature): 12/11/2023 4:32 pm (If Report Is Signed, Electronically Signed in Other Vendor System)Normal [facility] HospitalXR Spine Lumbosacral 2/3 Views w/Bendingon [id number] Spine Lumbosacral 2/3 Views w/BendingCLINICAL HISTORY: Follow-up fusion. EXAMINATION: Flexion, extension and neutral lateral images of the lumbar spine were obtained as well as a frontal image. Comparison is made to an examination dated 02/28/2023. FINDINGS: Vertebral body heights and alignment are maintained. There has been previous fusion at L5-S1. Surgical hardware appears intact in appropriate alignment. There is mild loss of disc space height with mild endplate changes throughout the lumbar spine. There is mildly limited range of motion. There is no dynamic subluxation. There is facet arthropathy, greater in the lower lumbar levels. There is no suspicious osseous lesion. There are clips from previous cholecystectomy. The SI joints are patent. Soft tissues are unremarkable. IMPRESSION: Postsurgical and mild degenerative change with mildly limited range of motion. No acute findings. Final Dictated by: Seven Matt MD Dictated DT/TM: 12/05/2023 2:24 pm Signed by: Seven Matt MD Signed (Electronic Signature): 12/05/2023 2:25 pm (If Report Is Signed, Electronically Signed in Other Vendor System)Normal [facility] HospitalNeurosurgery Office/Clinic Noteon 12-02-2023 Neurosurgery Office/Clinic NoteChief Complaint 1 year follow up. History of Present Illness One year post op follow up appointment s/p L5-S1 PLIF 12/07/2022 No complaint. No leg pain. He is happy he had back surgery. Today he wants to talk about his neck. I do not have any imaging to review. He thinks he has carpaltunnel syndrome based on a emg a few years ago. Neck pain (with some headaches): started 1 1/2 yr ago, midline pain, constant daily pain, /10 - 9/10 pain, activity-dependent pain. Bilateral arm pain: none Bilateral arm numbness: started 1 1/2 yr ago, some in the elbows but mostly in the hands. Bilateral arm weakness: started 1 1/2 yr ago, progressive, drops objects. Balance changes: none but he describes poor balance for a long time. Conservative measures: PT, pain management, narcotics, nsaid, gabapentin, steroid. 02/28/2023 Visit: Three month post op follow up appointment s/p L5-S1 PLIF on 12/07/2022 No complaint. No leg pain. No incision concerns. He is happy with the result of surgery. 01/03/2023 Visit: One month post op follow up appointment [...] is very happy he had the surgery. [1] [1] Review of Systems General Adult ROS Fatigue: No Weakness: No Cardiovascular EENMT Gastrointestinal Genitourinary Hematologic/Lymphatic Musculoskeletal Back pain: No Other Musculoskeletal: No Neurological Numbness: No Psychiatric Respiratory Skin Physical Exam Vitals & Measurements HR: 76 (Peripheral) BP: 128/64 HT: 191 cm WT: 93.6 kg WT: 93.6 kg (Dosing) BMI: 25.66 Additional Vitals BP Position/Location: Sitting, Left arm [...] EOMI, PERRLA, TML, FS, No drift 5/5 rayo UE strength except 4/5 bilateral thumb/pinky opposition 5/5 rayo LE strength 2+ UE reflexes 2+ LE reflexes Clonus absent Assessment/Plan Assessment: 1. s/p L5-S1 PLIF 12/07/2022 2. pre op MRI Lumbar 10/27/2021: L5-S1 disc bulge with severe bilateral neuroforaminal stenosis withmass effect on the L5 nerves. L4-5 disc bulge with mild left, moderate right foraminal narrowing. T12-L1 small disc protrusion with mild central canal stenosis. 3. HTN, depression, anxiety, asthma, recent melanoma 4. Chronic neck pain and bilateral hand numbness and subjective arm weakness 5. New diagnosis of diabetes - on Lantus, Januvia and insulin ss - last A1C 7.7 Plan: I recommend the followin. cervical mri 2. cervical xrays: ap/lat/flex/ex 3. bilateral UE emg/ncs Follow up after the above. Time Spent with the Patient I have personally spent 30 minutes on this date, directly related to [...] hydrocele excision/repair (2007) Inguinal Hernia Repair (2007) Repair of right inguinal hernia (09/09/2007) Hydrocelectomy (09/09/2007) Umbilical hernia repair (2011) REMOVAL OF GALLBLADDER (2011) Lymph node dissection (2011) Excision (more content not included)...[facility] Activated partial thromboplastin time (aPTT) in platelet poor plasma by coagulation aOrdered By: Mil Agarwal on 58-19-2352bVJM Coag (PPP) [Time]31.0 s25.1-36.5FPremier Health Miami Valley HospitalComment on above:A hematocrit value greater than 55% may lead to inaccurate results in coagulation testing. Patients having hematocrit values >55% require a special collection tube for coagulation studies. Please contact the laboratory at [phone] for redraw instructions. Basophils Auto (Bld) [#/Vol]Ordered By: Mil Agarwal on 39-85-8089Sgpmwsmhq (Bld) [#/Vol]0.1 10*3/uL0.0-0.2FPremier Health Miami Valley HospitalBasophils/100 WBC Auto (Bld)Ordered By: Mil Agarwal on 89-76-4473Yalicbdjy/100 WBC (Bld)0.8 %.[facility]red HealthcareCarbon dioxide, total [Moles/volume] in Serum or PlasmaOrdered By: Mil Agarwal on 59-65-7591VO8 [Moles/Vol]29.8 mmol/L21.0-31.0[facility] HealthcareChloride [Moles/volume] in Serum or PlasmaOrdered By: Mil Agarwal on 95-70-7973Kvhwnskn [Moles/Vol]103 mmol/L 98-107Kind[facility] HealthcareCholesterol [Mass/volume] in Serum or PlasmaOrdered By: Mil Agarwal on 49-83-2498Vgbdxmsbqts [Mass/Vol]129 mg/dLLow 140-200Kindred HealthcareComment on above:Chol less than 200 mg/dl low riskChol 201-239 mg/dl borderline riskChol 240 mg/dl and greater high riskCholesterol in LDL Calc [Mass/Vol]Ordered By: Mil Agarwal on 11-25-2023 Cholesterol in LDL [Mass/Vol]64 mg/dL0-100[facility] Comment on above:LDL ATP III CLASSIFICATIONLDL less than 100 mg/dL OptimalLDL 100-129 mg/dL Near or above amumglhHZL966-524 mg/dL Borderline highLDL 160-189 mg/dL HighLDL greater than 189 mg/dL Very highCholesterol in VLDL Calc [Mass/Vol]Ordered By: Mil Agarwal on 04-63-8729Nlfogzjysdv in VLDL [Mass/Vol] 33 mg/dLKindred HealthcareCreatinine [Mass/volume] in Serum or PlasmaOrdered By: Mil Agarwal on 51-53-3023Auffbqubiy [Mass/Vol]0.95 mg/dL 0.70-1.30[facility] HealthcareEosinophils Auto (Bld) [#/Vol]Ordered By: Mil Agarwal on 88-73-1003Kjfihgsxicl (Bld) [#/Vol]0.4 10*3/uL0.0-0.45 [facility] HealthcareEosinophils/100 WBC Auto (Bld)Ordered By: Mil Agarwal on 91-96-9191Ratxuewnqsy/100 WBC (Bld)5.1 %.[facility]red HealthcareErythrocyte distribution width Auto (RBC) [Ratio]Ordered By: Mil Agarwal on 29-04-9052Accgamtpscz distribution width (RBC) [Ratio]14.2 % 12.0-14.8[facility]red HealthcareHematocrit Auto (Bld) [Volume fraction]Ordered By: Mil Agarwal on 27-75-3770Btoqrirkrv (Bld) [Volume fraction]42.7 %38.8-50.0[facility] HealthcareHemoglobin [Mass/volume] in BloodOrdered By: Mil Agarwal on 04-86-0557Ugebnaxhaw (Bld) [Mass/Vol]14.5 g/dL13.0-17.0[facility] HealthcareINR in Platelet poor plasma by Coagulation assayOrdered By: Mil Agarwal on 55-78-2800PDK Coag (PPP) [Relative time]0.9 {INR}[facility]red HealthcareComment on above:INR Therapeutic Range A) Pre- and Peroperative OAT started two weeks before surgery. NOT HIP SURGERY: 1.5 - 2.5 HIP SURGERY: 2 - 3B) Primary and secondary prevention of venous THROMBOSIS: 2 - 3C) Active venous thrombosis, pulmonary embolismand prevention of recurrent venous thrombosis: 2 - 3D) Preve ntion of arterial thromboembolismincluding patients with mechanical heart valves: 3 - 4.5Leukocytes [#/volume] corrected for nucleated erythrocytes in Blood by Automated counOrdered By: Mil Agarwal on 82-22-4754NYG corrected for nucl RBC Auto (Bld) [#/Vol]8.0 10*3/uL4.1-10.5FPremier Health Miami Valley Hospital Lymphocytes Auto (Bld) [#/Vol]Ordered By: Mil Agarwal on 11-25-2023 Lymphocytes (Bld) [#/Vol]1.9 10*3/uL1.00-4.8[facility] Lymphocytes/100 WBC Auto (Bld)Ordered By: Mil Agarwal on 11-25-2023 Lymphocytes/100 WBC (Bld)24.1 %.[facility] Auto (RBC) [Entitic mass]Ordered By: Mil Agarwal on 52-55-7697DZD (RBC) [Entitic mass] 29.7 pg27.5-35.2FCleveland Clinic Euclid HospitalHC Auto (RBC) [Mass/Vol] Ordered By: Mil Agarwal on 19-46-8514LZMH (RBC) [Mass/Vol]34.1 g/dL32.5-35.6 [facility] HospitalV Auto (RBC) [Entitic vol]Ordered By: Mil Agarwal on 11-40-4032BNC (RBC) [Entitic vol]87.3 fL83.5-101Kindred HealthcareMonocytes Auto (Bld) [#/Vol]Ordered By: Mil Agarwal on 38-16-9679Aafaearsc (Bld) [#/Vol]0.8 10*3/uL0.0-0.8[facility]red HealthcareMonocytes/100 WBC Auto (Bld)Ordered By: Mil Agarwal on 11-25-2023 Monocytes/100 WBC (Bld)9.4 %.[facility]red HealthcareNeutrophils Auto (Bld) [#/Vol]Ordered By: Mil Agarwal on 21-74-5948Otpcevwqfeu (Bld) [#/Vol] 4.8 10*3/uL1.8-7.7FPremier Health Miami Valley HospitalNeutrophils/100 WBC Auto (Bld)Ordered By: Mil Agarwal on 08-32-2131Lliggsqcxmk/100 WBC (Bld)60.6 %. [facility]red HealthcareNo Panel InformationOrdered By: Mil Agarwal on 78-68-2227Myaamjcos GFR (CKD-EPI)> 60.0 mL/MinKindred HealthcarePharmacy Creatinine Clearance (ChemN/AFPremier Health Miami Valley Hospital Nucleated erythrocytes [Presence] in Blood by Automated countOrdered By: Mil Agarwal on 23-28-4666Meeaclbcg RBC Auto Ql (Bld)0.1 /100{WBC}0-0.5FPremier Health Miami Valley HospitalPlatelet mean volume Auto (Bld) [Entitic vol]Ordered By: Mil Agarwal on 86-99-5167Ilgugzne mean volume (Bld) [Entitic vol]8.5 fL 6.6-10.1FPremier Health Miami Valley HospitalPlatelets Auto (Bld) [#/Vol]Ordered By: Mil Agarwal on 18-28-2828Ehxtvljde (Bld) [#/Vol]268 10*3/kX951-486RpiimquurKindred HealthcarePotassium [Moles/volume] in Serum or PlasmaOrdered By: Mil Agarwal on 78-22-1377Ljgscgcsp [Moles/Vol]4.2 mmol/L3.5-5.1FPremier Health Miami Valley HospitalProthrombin time (PT)Ordered By: Mil Agarwal on 63-62-1769AA Coag (PPP) [Time]10.6 s9.0-12.9[facility] Comment on above:A hematocrit value greater than 55% may lead to inaccurate results in coagulation testing. Patientshaving hematocrit values >55% require a special collection tube for coagulation studies. Please contact the laboratory at [phone] for redraw instructions.RBC Auto (Bld) [#/Vol]Ordered By: Mil Agarwal on 60-57-9124TLW (Bld) [#/Vol]4.89 10*6/uL3.90-5.60ProMedica Flower Hospitalerum or plasma anion gap determinationOrdered By: Mil Agarwal on 85-29-3785Hbxnt gap [Moles/Vol]11.4 mmol/L6.0-15.0ProMedica Flower Hospitalerum or plasma high density lipoprotein (HDL) cholesterol measurement Ordered By: Mil Agarwal on 88-25-2273Vheoguoroqw in HDL [Mass/Vol]32 mg/dL 23-92Kindred HealthcareComment on above:HDL CHOL ATP-III CLASSIFICATION Cardiovascular RiskHDL > or equal to 60 mg/dL LOWHDL < 40 mg/dL HIGHSerum or plasma total cholesterol/high density lipoprotein (HDL) cholesterol mass ratOrdered By: Mil Agarwal on 33-91-8211Qzjqrjrgjvs.total/Cholesterol in HDL [Mass ratio]4.0 {ratio}<5.0ProMedica Flower Hospitalodium [Moles/volume] in Serum or PlasmaOrdered By: Mil Agarwal on 05-39-0939Rdpamn [Moles/Vol]140 mmol/D528-800FhaqdbpubKindred HealthcareTriglyceride [Mass/volume] in Serum or PlasmaOrdered By: Mil Agarwal on 11-25-2023 Triglyceride [Mass/Vol]167 mg/dLHigh0-149[facility] Comment on above:TRIG ATP III CLASSIFICATIONTRIG less than 150 mg/dL NormalTRIG 150-199 mg/dL Borderline highTRIG 200-500 mg/dL High TRIG greater than 500 mg/dL Very highStandard traceable to the Center for Disease Conrtrol and Prevention (CDC) test method.Urea nitrogen [Mass/volume] in Serum or PlasmaOrdered By: Mil Agarwal on 88-61-2131Lexr nitrogen [Mass/Vol]21 mg/dL7-25Kindred HealthcareWBC Auto (Bld) [#/Vol]Ordered By: Mil Agarwal on 13-72-0624DOJ (Bld) [#/Vol]8.0 10*3/uL4.1-10.5FPremier Health Miami Valley Hospital GLYCOHEMOGLOBIN A1Con 18-38-8951VOU RECOMMENDATIONSEE [facility] Community HospitalComment on above:Result Comment: ADA RECOMMENDED LIMIT 4.0 - 6.0 ADA THERAPEUTIC TARGET < 7.0 ACTION SUGGESTED > 7.0Performed By: #### A1C #### [facility] [address] [address] [address] Andi EnamoradoGlucose [Mass/Vol]280 mg/dLMetroHealth Parma Medical CenterComment on above:Performed By: #### A1C #### [facility] [address] [address] [address] Andi EnamoradoHbA1c (Bld) [Mass fraction]11.4 %Critically high4.5-6.2The [facility] HospitalComment on above:Performed By: #### A1C #### [facility] [address] [address] [address] Andi EnamoradoDermatopathologyon 42-12-6946UcgtyvjhvqcdifchOzaj TIMDONELL [facility] Pathologist: DEVIN JORGE MD Date of Procedure: 06/27/2022 Date Received: 06/28/2022 Date Reported 07/02/2022 Submitting Physician: RAAD CLINE MD, Location: [facility] Other External # FINAL DIAGNOSIS SKIN, DEBULK [...] M.D. Electronically Signed Out By DEVIN JORGE MD/[facility] By the signature on this report, the individual or group listed as making the Final Interpretation/Diagnosis certifies that they have reviewed this case. Diagnostic interpretation performed at [facility] [address] [place] [address], [place] [address] Clinical History: Rule out benign nevus vs. melanoma. B, C, D. ([place] office). Specimens Submitted As: A: SKIN, DEBULK (L) HELIX (B,C,D) Gross Description: Received in formalin are three shine pieces of skin. 1.) Received in formalin, labeled B , is a shine, ellipsoid piece of skin measuring 7s9j1yh, oriented by the surgeon with orange ink on one margin and black ink on the opposite margin. The specimen is embedded en face in toto in one block. 2.) Received in formalin, labeled C , is a shine, ellipsoid piece of skin measuring 8p9e2nd, oriented by the surgeon with blue ink on one margin and black ink on the opposite margin. The specimen is embedded en face in toto in one block. 3.) Received in formalin, labeled D , is a shine, ellipsoid piece of skin measuring 7c3q5hq, oriented by the surgeon with green ink on one margin and black ink on the opposite margin. The specimen is embedded en face in toto in one block. dcp/06/29/2022 [facility] [address] StreetComment on above: Performed By: #### D #### DermatopathologyDermatopathologyon 50-19-2514RpycpuloevthoplsLysd: DONELL DUMONT Pathologist: DEVIN JORGE MD Date of Procedure: 05/28/2022 Date Received: 05/28/2022 Date Reported 05/31/2022 Submitting Physician: RAAD CLINE MD, Location: [facility] Copy To/Referring/Attending: MD SPARKLE GLOVER FINAL DIAGNOSIS 4 SLIDES, [facility], #[id number] (BX: 05/02/2022) SKIN, LEFT SUPERIOR POSTERIOR HELIX, [...] SUMMARY REPORT A. 4 SLIDES, [facility], #[id number] (BX: 05/02/2022): SPECIMEN Procedure: Biopsy, shave Specimen [...] ADDITIONAL FINDINGS Additional Findings: None ADDITIONAL TESTING Reserve Officer Blocks: Normal Block: None Tumor Block: A1 Electronically Signed Out By DEVIN JORGE MD/[facility] Diagnostic interpretation performed at [facility] [address] [place], [place] [id number], [facility] [address] Clinical History: 4 MM PAPULE, NEOPLASM OF UNSPECIFIED BEHAVIOR VS. BASAL CELL CARCINOMA Specimens Submitted As: A: 4 SLIDES, [facility], #[id number] (BX: 05/02/2022) Gross Description: Received for consultation from [facility] are four slides labeled [id number] (BX: 05/02/2022) along with the corresponding pathology report. Slide/Block Description 4 SLIDES, [id number]. Keep Slides: N Slides Returned: N Personal Consult: [facility] Medical CenterComment on above:Performed By: #### D #### DermatopathologySURGICAL PATHOLOGYOrdered By: Luis Joseph on 14-10-3332Kylx ReportSurgical Pathology Report Case: [id number] Authorizing Provider: Vashti Llamas DO Collected: 03/13/2022 [...] - COLON LEFT BIOPSY, r/o microscopic colitis [facility] HospitalFINAL DIAGNOSIS r1cjxWTiGVFrdPEdYALkNTdqeqLuTCVixWXoN4LqqfwpBCqoYM8lPF8byCqnqRWncPOjMFXfUhKtw2nu j059dVAll0giQTFFkxwc hCf2lIzgQ12mv1Q9ArakN76spAPpREW9EUZkGKUyaDXaMQUvNIQ5MJCwpWGnY0wiSADgWS6wsneqISdm NQxkICGsnTP1JZRlbCSl X9OzWPNwRNjnJIEdioq1IrIsKl1goUWwdQloXXbfGJRtHBTrGEerKUZhVyHhVG0yVVElZFgmGZjpuHKh iMixAUiaBjeydEJ7Dpsx mG1wIYNgPHZnjMXdA13ihAotSi05VHcedOIro9JgMHmijSjmhd3xXKweU23kf6PbToFuiUNwuoD6bL0h LarsvE3aVZDqNQPmrZXl Kh1rNCIrPUDlX3Hfr8TkB2MmfYWlKLZbrmEwLE5vVJssuIKlgMPvkqQjgIEnABFiRctlrC0xIUdsdkUf Hx3rQEP9x66iC5rfBIMp t5VqtCcnoHbqXAmkjxNpx8wdNJRqBF83SCO5jzVnNrPdmPGbf6Uoc0r7eBHcxgIskPQgyl4zhJskNJCg jHTxXYRnv11vBIptckYz YR2bVEGlPJYAwrWdcivjPO3gRWIiVlMBYvSydCkifnmzBTavtqXpfXckJHLKPhXbMPIsoxE4FOPgBLWc k5clulqxbH6xcFZhW0Mv gJx9AFttjxPiKY4vUIAvPPCXjFF0zDBiPVFpTS3inPKvAWbwviBicMxbZSBCSyBaVPTkeLglSHqmxJje dS5yWEDec9BqwTxlyAgf MKuwqlFss2hbWPJwVRewNUWae4ZeZC27Q78hFVK8iSCeXH9lKKYcMCfil9U1aEBtKCb9HAMsoOiswq7k bFioGSrdrO0zLLQoPXFG tObalLNay9tdsnraIqjslXZ5TwyezP8yIOQsZCDlmJAxG74ks04mYqQmyYFor9Jxd4a0zWPsolQelVAs xr2auOsjYZJxnRCxDWSz e22mERaqloMnBU1tGEYjROJJoaGaifguFP7oUHVpYuHhgZ0zlE4gkLZrXoUpbwCsj2kqLCnsnp00iiVd j5iwvXqtRunoyJ5bKDdj uiCrUc5iSFonAzQiR24cq13iHFKqr1VdpHlfrKfsAOpihtRyr0zuRVDtbQ3lpXAsyGXmx2LgDOegxAkh sn8kPNjlX15da0XxXwVj cBXycgH8iG6jIuffrZ3wFPTbXUUqdWLxRe5pMZWpXWAdH9Lve1UfkGetsXskG9a9aQUhi9HeA92gzWCr CB4vnBEdO81exWCezw6uqRFexH==Dvdlspzdh ClinicGross Description g5awuLXqCNEozVDWSPFbDSMkUI7veUibcBs0iKaoYRQezvA5mNRuUZzyi1biUNL2m0zezfDMZnjcVGQz QUqgMOErlkyyIfY6JDrp RPYlsauwOAg6KNieUFMqpDR2WJFiaKCdO1PoFJJxOC0jyri4BLJ9MMtkSDMsHpC9ZFFlUqBjNmqgHSr2 BRGcdlD2Sym8MHBqDPZi dWRbt0L3QBthqyqgBXAawQAlU336WNawz5RmrQNjVLekmTQfQKADPxyqWpwtoOgyk0XozAWlYDvdXOVk USYtFPyqcmweQFt6DIUt JBvquVOjUD3mkRijKeuxmGddt7RryAEiXNbsXMDeVUZuJBrpIFHuUL3YVfYrERFaMTPbQmD9RdU3RWa6 OSBPVlMgIiAgMjUyMDQ0 SobbWWc7DWx6HNyDQgL4EBGjLKK3AED9IFD1XGG8SNdryGJxVNbfDkZDwnwlyAWpNBEyWPcouoF2GWEx YWluIEEuIFNNQUxMIElO DIFUOXrZXFXJCZ1BZ2nhzPNqRT0CCFFpxGKFRQH5QL0vFPIYYqemwGLmIHJbbJxmMCqfeS0tSO9IGFi9 cmNoXGZzMjAgUmVjZWl2 IAImkB0hEi0yhBPywO1bLNPiDP33mMCrbBjjDVVhWZAgbaZuRkE6KZ0fLQBiIfFojUxqr5JjPJLkW9Kr I0F7eO4lLNCiNCHhGJZ2 KJFtRfV3CJWlBJDvhI2rKV56QWpmlUBfwPZeiCY1BJOwcW4nc18cOSDgr8MseMGmIa6BOJZtyTWUFLH3 BQ7aMOt6MJzyFYJbI3Sh C6JhroVieMNhVQXnfhHqi0ipRYE0EBAeyVXtmTMiOqHxXayfGSQ8NHQaXRyrNF2Ya9fmOSQdmJVfDWA9 IFxcaWQgNTEwMDIgXFxk LlRwP1DXOWEkDgFuJPHwMropZKk0LAi8IX9WXcOeLPVxKTWySAG4CUOeKXi0URenYC1XSGl4SsA6VFW5 PXNmYMBzUYXdIZs8HFFb OEpeUWFruCUoBKaiRiufTAtoK41syLaeoJ5qNsHlYdctqRShioSQBcQQQW4AKQYQZMJNT2BHXEzmXTLd OGatJROkF54ty8NQd6Ba PD4QBLn2uaUfhhxigK8xWPLnvfHpMCkwuZLyK9hkTrVwFTVXPAZmjBVqTDLbbnPog0VhUFyuwwKexbQq feOjoAwpX6Bzs9IggRLu HWYhGTegz16wnVX6wJZiwQYquJVbh0LatK3iSCQaBGU0QRZcOiS4VGJqMiUizV2jTM97XBtyjRVnfUYj tQG7VSMapK9fc32aNRQm p7LujYLlYm4CCZHhqGWUUUB1HY0zSNs7IDnhHMQoM1EcE4VsbcPevKYwCIJhrwMjh8wnPOO0ZUVvtHDw oYOeJgYqDhzdLFV0CTEe NLxhID3Yz8biWMQcaFIoIRW5BTaxgKCtIMFxLSWnYOeoNhKdF2BVKOHgEmOqGJQlGamvPBf9SCt9OI3S UyAiICAyNTIwNjIyMiIg VDj8SOuoXD5MLCn5RmC5VKD7RRYpXLIkFTUvDJi8EQShPJldYLHgzFJtDNxbMlroQIrfF90euDpxcV5f ZnMxNlxwbGFpbiBDLiBU HxHCF9MGCwLOVVBMXU8UTKWSIYoEGETastRVBndwdDncEkYooIQoKlMbFNgcdSZsiAVaRGzltwOcnngg MCANClxsdHJjaFxmczIw WRCuJ3UktyReHVelIRSizw0crJobYPdnIV6zYPLngRMgWDYqDxS2CA3hUXYuSdIsnXzyh0UkFD8aYFJ9 cmluZyAwLjUgeCAwLjIg oCOoEfWqU94yLPDwdLThbWapp4CybBp5uFAxPZilKJ0zEYGyHWVpOJX6QX5TNqrxwVoyOlSqoMPkWxQk jtA0GPXikKMnQCI6SV7q LXYuqyssLTKeXXIpPBF1XEbxdJ54vFWfLPIjLJVipSXpmUmorBKxphSMVaafHqwjvAopm6TwdCHzVSif DHMaAEYyDHkxKXLvPZ8V GtGsVUWdNUOxDwE4NhC3AHo3ZLKBImXjKoFtExMgYQOvBfUpJSj1HMl8IFcGZuS1HMYoKPV0YRLrILM3 YSN7MXeheIXkBXfyOiGR ndlxzSTvUZGrTSggunE4QHNlPXcvQWJtFBWquBpbiL7nFL6eVAYGIAhPXVwrEFcUCZ7sIsiAIYVVLSRg ciANClxlcGljTmVzdERv KtCuYOuiqTFzeJPkYQpmmmYobbhhCTAXNmwpsOUxbKlpkzLdKTOjQ3DbipEoEGklXANmrn2kjHdhGLZx DROthRu5wCXfQOXfoVOm UHFhz9JfsOUnOTXvo5T2SUZbi0M4MLIvF8syIRkceSweDfE1ykMlPxChsBKeLiHbqOLcIvMwM14qBJQi mBXcxBqrf4AlvWz2vMRd UNxlQQ1hAWFcZCDpTXV6TM6IBdwftDmeYvHdoSXmKgDbrbH9IBNsbYRaDXB4EV7rNMBrcuxnWZDxLZQx FNP9IXvasI92nJDwOHCv WFQwcDMcoLfopHTpapONYtqlVogyfBgap6UxwZAuCTmlIHEgJYLmLBxdKFTeIG9ZMzKbJOLpNXXeNhS4 YnK3UAc6BGUJLvIqNlGg WbFnSRPgHgIgRZf1OKq1IJqXIsR8KBQqVWS4KOQ6EKH3XCQ4GFckoKLeBRclDzPSrmhorJSaDZKmDFfl eiK1HUSiQCnlVEWnJYAe jStfqO6uVC8kE77BS02jJmvRNLEsKmgUHONZNLIjqyRZQdkewMenXeHrcEBdJsFkETunpKMqrBSgYAgz bjBccmluMCANClxsdHJj gXthtoIpUQTfM1RhmiQeXWjjEQGhyq3klYizRBQzJSTuhEd1yKWvVBJpvQDiMICdf6McyCFfGVPdg9G3 TPOct0X1ZQUfA0uqFCul kPexNbN9sgZpJyRchUCmXfZwrVDnKoYtI13vFIAbuCEyzUbim9GlzKq8dWVhWHjcNQZ2krYyCTEzPXG7 ZUKhERckOWNsL67tp1RV q5RbDBAav3iscLxdw7FbuHHqERbhFMDssYXfDLvjwX1qCcYzh1quhJp9KUgqexO3MBKfxw2saJdijB9f XVw9VWxySKMxM3AqF9Vo CJqgFHB8QCYrOqJoAJPjIIQSTnZqXdQbNCTqMtWtPhUrDSg8EYlzG9CWPOZhRNP7UrT0ZaE4BkO1QMd9 EMGKSk4mTUFjWvr7WCX0 IKZ7AYC5IWDtSQGbKiMqZUHjTKUkVPdtCStycSKgMA0ohNqijKJifeipqmN3YAUiXSsnVQXrWUIOOK4D IExFRlQgQklPUFNZXHBh wmNRPezfsIazIuKndQSmCbXqXTunxJNybLMdABooioVozxqkHICQZilijBBnhPepscAmLYIiV8PwdsSc FYpnKHGxhz3wrHaoIXAy BARgeZi2xUMjFPVzpNVpMDNad5HulOXrEVBeo8T5ATYbg8L1PONoX3acMCqrhIhvEkP0ddPfAlYoxZVn TnXisPBcQjRzN85eIVOt pAHigCtln7QtkWj4dGWtJYdkDVM9rfTlEFFjUMV1NXQtSWdsQCGyDWjjxDTtME6GA2Igp4TiLPqeyQqy SXRel76veCZuRo0ywNBs XEG5XSPkSSFloJKtSHWUyUoaqRKaVTr5PYOzPZTtmCkpJYV9HV5iHMBfDGTqbDLzRNviQ4iuUPCeFKHx kHWjTC3NWVPjmrKZZqhN VBQnEhK6QfNfFrNyDIgzDtNFIMqlSHScIWdpVFBbH75wx8GXg9EtIHWxt7nveOwoh4AjsQGnFHmeOJVy kHZiXFlvjU4nKuGkw1vm cKf0KQtjiaR6XGNvpp7afQisbE0eVNedm2lvDBH7AEAuxHZfhQLaVAvmvRijzE4jGiHsVja4ZHjpVORa H3CcT5ZnqmH5PMJiZCebTOZzLILaTYn2Epgimttrb ClinicPerforming Lab o9twkQWuSXDahUGjDoPtTGOwVLRxg0faIKHsyYWvHyOeHtOrMxIhDbvbyRRiZHQiWzQvm9ikh312mJPc n4eeFFOkAuY5nRFwPDAn gTSdH262WNSsAGadc4jra5IsGGWwtCWrh0V8MNWUferkjFq3eResQ18vt6P2ApbyU1hjPFIyZYAyG6Ge TS6wQSRmBjf3IUL0UMB4 DSRzPLKgR7UgQH5wLQUkiUTgBFo0f8hdjCkuWEDuUBX7e9qmGGtxfuXyWQ8gnv7ujPx3r3cvxzJqZWTv HOBwnCMJTGMaH1ZqrUja Uc7aiRj3sZjqMgylUWQ6Jxt6AY5wwf57eoe5rBjqKEIrdufiGiW2MFjnAZWebvuyHOl3EIodLBMijUW2 THFpnYVdU3CmEXKyBJ3g wqk8EUK3PXooDXJvUdP8JFRmeSIwNEXmySsbLDgvs707KPM8CcKbUK5pE6Yjy0S8bQ1tjIUaOZTzmCFc LbLkPHBdjm2qpLEgEZae q6ImGNW6lyR5cZSliLAkRLHgTP98Rcxzc4XkTihud0EkI49bbEI5EBjau0pvWL9eQzW2nzCaQDxrg6jm nQ8tVzH9GShrIR7sJP8n TISewT8uyqmfNLDxRwCxcofkIQRezVlwamKrQw6ckQbbDDC4SEwcZ5nygY8eQfI4YYncQ8vcvG0jLMi3 ZTjjdRL4TDEqxN7hJJ2z eownl8naSEpeQRohDTBcutC5wdY9PTIdcSMrQ5RlwC5mGKKpGV8blikgk3xkDSX6UOplPWRoRDA6YoBi LNUml1Vzmui9ZiJcw2Zu eLYwSTvaA85cu498JSTlarVaJ4bhuKAimmiiaUXbvzbzVBfsemQ0MAJyIWHyIGqmVGXnWBEaAzPfdENh ZzEwMzNcaGljaFxmMVxk CyBbEVTxZMelV1afJeTtWiCwAdMWoDJbau4upPfjAXecuVPxcVDnsKT0bR6cASPyghOaxn6sXTGneLFB dPJ8GEcoxqRnZ7rnqsaz WOkptIsqzsCzcKPWj3CraVIaeMvoQuj3CGJCMYtvwWSsKHOJSKqdTOB6RtnvhXZoMRRuDWIQWKL4UTGh NCAgICBDTElBIyAzNkQw NvI3PQNgAWYxgapfAEZyvLHiGCljdBXltllbBAhlqhH5QASzZKhfRSHyKBJkCqHbpREpXtFoEtSinCef aFxmMVxkYmNoXGYxXGxv K0gwJbCzJ0LuPFSaBtTvpWJfX5sjTKTun0IraB5hzOBamTnenT1fXrNfQnVgQbnrIZ6xYUGfK5hciATz BQXnXJPzG4goQsGtcL7e dPzsGQtiydMtNHXdajFocC7tStHDbQUfocILBdAQy8K0WBAvZC9kDW7yuGOdbW==[facility] Narrativeon [id number] [facility] G[facility] Patient Name: Donell Dumont Procedure Date: 03/13/2022 10:15 AM Date of : 1975 Admit Type: Outpatient Age: 46 Room: [place] [address] Gender: Male Note Status: Piece Hand 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 Procedure Code(s): --- Professional --- 44519, Esophagogastroduodenoscopy, flexible, transoral; with biopsy, single or multiple Diagnosis Code(s): --- Professional --- R13.10, Dysphagia, unspecified K31.89, Other diseases of stomach and duodenum R19.7, Diarrhea, unspecified CPT copyright 2020 [place] [employer] (more content not included)...PR[facility]ATIONC[facility] HospitalRadiology Study observation (narrative)[facility] HospitalFlexible sigmoidoscopy studyon [id number] [facility] Patient Name: Donell Dumont Procedure Date: 03/13/2022 10:34 AM Date of : 1975 Admit Type: Outpatient Age: 46 Room: [place] [address] Gender: Male Note Status: Piece Hand Override Attending MD: Vashti Llamas DO Procedure: Colonoscopy Indications: Chronic diarrhea Providers: Vashti Llamas DO Patient Profile: This is a 46 year old male. Refer to note in patient chart for documentation of history and physical. Last Colonoscopy: 2020. Referring Physician: Paige Rizzo (Referring ), Jack Ortega (Referring ) Medicines: See the Anesthesia note for documentation [...] potential delayed complications were discussed with the (more content not included)...[facility]ATIONC[facility] HospitalRadiology Study observation (narrative)[facility] HospitalPhysical Therapy Noteon 01-30-2022 Physical Therapy [id number]#1.00OTParkview Health Bryan HospitalProvider [place] 12-05-8854Ialeojxa Orders [id number]#1.00[facility] Coding Summaryon 64-49-8503Opvolb SummaryHTMLBase 64 PqtdoeraQEa4oBp+PGhlYWQ+RE4ZNOQdC11juMLyaU0KS4mGYQ5WTUDRRJNDDG3IFO4djDK6WUheG5Tk biAv [file] b3J (more content not included)...[facility] HospitalProvider [place] 10-19-3045Eilaudqj [id number]#1.00OTGTBr[facility] Hospital HospitalProvider [place] 56-01-9679Utdovgma Orders [id number]#1.00OTJ.[facility] Coding Summaryon 82-27-0261Btyrrc SummaryHTMLBase 64 CfqezifeOLm7cRw+PGhlYWQ+PQ2REEVjT65xdJHbqL2LY8hVLW5QBOCAVEFFHE7GVM1goFI3QWyoI7Iv biAv [file] b3J (more content not included)...[facility] HospitalProvider [place] 01-09-3798Tiubqvhl [id number]#1.00OTGTIFF [facility] Vital Signs Date TimeVital SignValuePerforming BsvtvdriyVsdorpyv61-60-5436 16:24-0500Body cmGregory CRUZM Work Phone: [facility] HospitalTyeiaejbny02-36-6711 16:24-0500Body mass index (BMI) [Ratio]27.09 kg/o3FrtkwheeGregory CRUZM Work Phone: [phone] [place], [place] [address]Jqnuebykyl83-90-8389 16:24-0500Body anfref48.71 kgNicblanca Diehl DPM Work Phone: [facility] HospitalQdwfgpomhe57-04-9528 16:24-0500Respiratory rate16 /minGregory Diehl DPM Work Phone: [facility] HospitalMurhktdelu26-75-9953 08:32-0400Body aluabk882.96 cmBenjamin Ball DO Work Phone: [phone] [place], [place] 7167710-29-2025 08:32-0400 Body mass index (BMI) [Ratio]28 kg/c7Raojxkmo Ball DO Work Phone: [phone] [place], [place] 7167710-29-2025 08:32-0400 Body odjxbm01.88 kgBenjamin Ball DO Work Phone: [phone] [place], [place] 7167710-29-2025 08:32-0400 Diastolic blood ezjsubtm09 mm[Hg]Jack Ball DO Work Phone: [phone] [place], [place] 7167710-29-2025 08:32-0400 Heart rate78 /minBenjamin Ball DO Work Phone: [phone] [place], [place] 7167710-29-2025 08:32-0400 Respiratory rate18 /minBenjamin Ball DO Work Phone: [phone] [place], [place] 7167710-29-2025 08:32-0400 SaO2% (BldA) [Mass fraction]96 %Jack Ball DO Work Phone: [phone])[address] [place], [place] 7167710-29-2025 08:32-0400 Systolic blood tfignhhb720 mm[Hg]Jack Ball DO Work Phone: 1(860)[address] [place], [place] 7167710-27-2025 16:19-0400 Body bdwiut163 cmGregory Diehl DPM Work Phone: [facility]Kdrpazbwmo84-38-1051 16:19-0400Body mass index (BMI) [Ratio]27.09 kg/k8Llsrcsiablanca Diehl DPM Work Phone: [facility] HospitalGsciozfwfp77-74-9180 16:19-0400Body nujumc07.71 kgNicholmarvel Diehl DPM Work Phone: [facility] HospitalJycwqrftai07-75-4414 16:19-0400Respiratory rate18 /minGregory Diehl DPM Work Phone: [facility] HospitalNluqzidmwk50-98-8782 08:36-0400Body eqxmxp509.96 cmBenjamin Ball DO Work Phone: [phone])[address]10-15-2025 08:36-0400 Body mass index (BMI) [Ratio]27.8 kg/b5Lzfejhyc Ball DO Work Phone: [phone])[address] [place], [place] 7167710-15-2025 08:36-0400 Body fvfuzi69.54 kgBenjamin Ball DO Work Phone: 1(264)[address] [place], [place] 7167710-15-2025 08:36-0400 Diastolic blood phnavuma48 mm[Hg]Jack Ball DO Work Phone: 1(247)[address] [place], [place] 7167710-15-2025 08:36-0400 Heart rate90 /minBenjamin Ball DO Work Phone: 1(347)[facility] [place], [place] 8418010-15-2025 08:36-0400 Respiratory rate12 /minBenjamin Ball DO Work Phone: 1(699)[facility] [place], [place] 8418010-15-2025 08:36-0400 Systolic blood zaigrbnb444 mm[Hg]Jack Ball DO Work Phone: 1(557)[address] [place], [place] 7167710-02-2025 15:52-0400 Body zmvelo292 cmGregory Diehl DPM Work Phone: [facility] HospitalKlwzfyrxyy71-54-1872 15:52-0400Body mass index (BMI) [Ratio]27.09 kg/v1Cyteewum Brown DPM Work Phone: [facility] HospitalKmzmyzbjqc59-59-6398 15:52-0400Body inkinb26.71 kgNicholmarvel Brown DPM Work Phone: [facility] HospitalEwrmvsbcpb10-10-8138 15:52-0400Respiratory rate18 /minNicholas Brown DPM Work Phone: [facility] HospitalEfybdnqpxo81-33-0825 08:32-0400Body mass index (BMI) [Ratio]26.25 kg/m2Bryn Guy RECTIFYING OPERATOR.TAVERN KEEPER Work Phone: [facility]09-11-2025 08:32-0400Body hxiejq76.25 kgBryn Guy RECTIFYING OPERATOR.TAVERN KEEPER Work Phone: [phone]09-11-2025 08:32-0400Diastolic blood mm[Hg]Shyanne Guy RECTIFYING OPERATOR.TAVERN KEEPER Work Phone: [phone] [address]-11-2025 08:32-0400Heart rate81 /min Shyanne Guy RECTIFYING OPERATOR.TAVERN KEEPER Work Phone: [phone]09-11-2025 08:32-0400Systolic blood racvspeq171 mm[Hg]Shyanne Guy RECTIFYING OPERATOR.TAVERN KEEPER Work Phone: [facility]09-02-2025 14:17-0400Body fpekot028 cm Gregory Brown DPM Work Phone: [facility] HospitalNsxhzeoybu88-70-1630 14:17-0400Body mass index (BMI) [Ratio]27.09 kg/o7Drswmgit Brown DPM Work Phone: [facility] HospitalZyorfojuej27-08-4367 14:17-0400Body ugtjbq30.71 kgNicholas Brown DPM Work Phone: [place] [address]Ifqajtdpql70-40-8585 14:17-0400Respiratory rate18 /minNicholas Brown DPM Work Phone: [facility] HospitalFatntipmim41-27-7570 10:35-0400Body hmrjfi294 cm Gregory Brown DPM Work Phone: [facility] HospitalEmuthorljb36-48-6679 10:35-0400Body mass index (BMI) [Ratio]27.09 kg/e9Khhibckr Brown DPM Work Phone: [place] [address]Pipdjcnzzo77-73-7953 10:35-0400Body .71 kgGregory Diehl DPM Work Phone: [facility] HospitalEfrkhwrnim44-69-6080 10:35-0400Respiratory rate18 /minGregory Diehl DPM Work Phone: [facility] HospitalLjzorgupdo55-74-7129 09:16-0400Body avhpqv382 cm Gregory Diehl DPM Work Phone: [facility] HospitalSqmjycqhej85-71-5459 09:16-0400Body mass index (BMI) [Ratio]27.09 kg/z1PwgdxgnvGregory Diehl DPM Work Phone: [facility] HospitalDpfmqgrshj48-19-5845 09:16-0400Body fozseo67.71 kgGregory Diehl DPM Work Phone: [facility] HospitalIijcqyrrnq51-41-7952 09:16-0400Respiratory rate16 /minGregory Diehl DPM Work Phone: [facility] HospitalOziwvhuawf73-43-8580 08:55-0400Body ceamzi989.96 cmBenjamin Ball DO Work Phone: [phone]07-30-2025 08:55-0400 Body mass index (BMI) [Ratio]26.9 kg/q7Qvsngchs Ball DO Work Phone: [phone]07-30-2025 08:55-0400 Body .36 kgBenjamin Ball DO Work Phone: [phone]07-30-2025 08:55-0400 Diastolic blood jmolnovt60 mm[Hg]Jack Ball DO Work Phone: [phone]07-30-2025 08:55-0400 Heart rate85 /minBenjamin Ball DO Work Phone: 1(978)883-[address] [place], [place] 8418007-30-2025 08:55-0400 Respiratory rate12 /minBenjamin Ball DO Work Phone: [phone]07-30-2025 08:55-0400 Systolic blood mmmdfoev554 mm[Hg]Jack Ball DO Work Phone: [phone])[address] [place], [place] 7167707-22-2025 08:19-0400 Body sbvtyh495.96 cmBenjamin Ball DO Work Phone: [phone])[address] [place], [place] 7167707-22-2025 08:19-0400 Body mass index (BMI) [Ratio]27.3 kg/e4Fivjbjav Ball DO Work Phone: 1(419)[address] [place], [place] 7167707-22-2025 08:19-0400 Body .61 kgBenjamin Ball DO Work Phone: [phone])[address] [place], [place] 7167707-22-2025 08:19-0400 Diastolic blood zudukdxb83 mm[Hg]Jack Ball DO Work Phone: [phone])[address] [place], [place] 7167707-22-2025 08:19-0400 Heart rate78 /minBenjamin Ball DO Work Phone: 1(419)[address] [place], [place] 7167707-22-2025 08:19-0400 Respiratory rate16 /minBenjamin Ball DO Work Phone: 1(419)[address] [place], [place] 7167707-22-2025 08:19-0400 SaO2% (BldA) [Mass fraction]95 %Jack Ball DO Work Phone: [phone])[address] [place], [place] 7167707-22-2025 08:19-0400 Systolic blood mm[Hg]Jack Ball DO Work Phone: 1(419)[address] [place], [place] 7167706-13-2025 08:33-0400 Body uhhlcr205.5 cmBenjamin Ball DO Work Phone: 1(419)[address] [place], [place] 7167706-13-2025 08:33-0400 Body mass index (BMI) [Ratio]26.9 kg/p9Avyznoop Ball DO Work Phone: [phone])[address] [place], [place] 7167706-13-2025 08:33-0400 Body .74 kgBenjamin Ball DO Work Phone: [phone])[address] [place], [place] 7167706-13-2025 08:33-0400 Diastolic blood mupvlofg43 mm[Hg]Jack Ball DO Work Phone: [facility]06-13-2025 08:33-0400 Heart rate94 /minBenjamin Ball DO Work Phone: [facility]06-13-2025 08:33-0400 Respiratory rate12 /minBenjamin Ball DO Work Phone: [facility]06-13-2025 08:33-0400 Systolic blood mm[Hg]Jack Ball DO Work Phone: [facility]04-24-2025 14:55-0400 Body opnaax902 cmShereemarvel Brown DPM Work Phone: [facility] HospitalLdbkzsaiga69-87-8616 14:55-0400Body mass index (BMI) [Ratio]27.09 kg/m5Idsioakr Brown DPM Work Phone: [facility] HospitalDhjnbeibhf88-77-8943 14:55-0400Body tipldn14.71 kgNicholas Brown DPM Work Phone: [facility] HospitalMjfbwbstmp10-52-4885 14:55-0400Respiratory rate16 /minNicholmarvel Brown DPM Work Phone: [facility] HospitalXbsujcqkwy69-39-2717 08:35-0500Body eqxexk992 cm Gregory Diehl DPM Work Phone: [facility] HospitalMzvwwwzani46-66-3265 08:35-0500Body mass index (BMI) [Ratio]27.09 kg/o1Ukeutnza Brown DPM Work Phone: [facility] HospitalQtzceurunj97-86-3989 08:35-0500Body czpycz27.71 kgNicholas Brown DPM Work Phone: [facility] HospitalTrrxdgqrnb15-87-2524 08:35-0500Respiratory rate18 /minNicholas Brown DPM Work Phone: [facility] HospitalHwhkgudiyd93-05-7353 08:37-0500Body buagqz788 cm Gregory Diehl DPM Work Phone: [facility] HospitalOgnnkqgxqt96-98-1719 08:37-0500Body mass index (BMI) [Ratio]27.09 kg/i9ZnyvmffaGregory Diehl DPM Work Phone: [facility] HospitalBtykypeckc00-51-5816 08:37-0500Body yzolby03.71 kgGregory Diehl DPM Work Phone: [facility] HospitalYjpcuzosii00-63-7416 08:37-0500Respiratory rate18 /minGregory Diehl DPM Work Phone: [facility] HospitalGuzzeksgty32-54-5516 08:16-0500Body mass index (BMI) [Ratio]27.22 kg/g0DtrypLeslye Cline INFORMATION ASSOC Work Phone: [facility] CenterSzfonwsatb47-93-0718 08:16-0500Body fhjbce25.16 kgLeslye Cline INFORMATION ASSOC Work Phone: [facility] HospitalYfmhtysmpl48-05-0935 08:16-0500Diastolic blood mm[Hg]Leslye Cline INFORMATION ASSOC Work Phone: [facility] HospitalPigzunasdt49-47-8553 08:16-0500Heart rate97 /min Leslye Cline INFORMATION ASSOC Work Phone: noSaint [facility] Science CenterQoamoxkibd09-71-3367 08:16-3214JlE6% (BldA) [Mass fraction]97 %Leslye Cline INFORMATION ASSOC Work Phone: [facility] HospitalZddezcwtib84-31-9141 08:16-0500Systolic blood uwwkfyek750 mm[Hg]Leslye Cline INFORMATION ASSOC Work Phone: [facility] HospitalBgmuhnbyce64-79-7564 14:09-0400Body .5 cmDO Jack Ball Work Phone: [facility]10-14-2024 14:09-0400 Body mass index (BMI) [Ratio]27.3 kg/m2DO Jack Ball Work Phone: [facility]10-14-2024 14:09-0400 Body lpvomh83.05 kgDO Jack Ball Work Phone: 1(459)[address]10-14-2024 14:09-0400 Diastolic blood hjrxotqi22 mm[Hg]DO Jack Ball Work Phone: 1(667)[address]10-14-2024 14:09-0400 Heart rate83 /minDO Jack Ball Work Phone: [address] [place], [place] 7167710-14-2024 14:09-0400 Respiratory rate12 /minDO Jack Ball Work Phone: [phone])[address]10-14-2024 14:09-0400 Systolic blood ivpijlzm742 mm[Hg]DO Jack Ball Work Phone: 1(916)[address] [place], [place] 7167709-18-2024 16:00-0400 Diastolic blood jvaglntu91 mm[Hg]DO Jack Ball Work Phone: 1(067)[address] [place], [place] 7167709-18-2024 16:00-0400 Heart rate79 /minDO Jack Ball Work Phone: 1(378)[address] [place], [place] 7167709-18-2024 16:00-0400 Respiratory rate16 /minDO Jack Ball Work Phone: 1(261)[address] [place], [place] 7167709-18-2024 16:00-0400 SaO2% (BldA) [Mass fraction]93 %DO Jack Ball Work Phone: 1(453)[address] [place], [place] 7167709-18-2024 16:00-0400 Systolic blood sqrlizrq83 mm[Hg]DO Jack Ball Work Phone: 1(888)[address] [place], [place] 7167709-18-2024 11:13-0400 Body ybnmoz432.5 cmDO Jack Ball Work Phone: 1(555)[address] [place], [place] 7167709-18-2024 11:13-0400 Body dwfqzkkefxg18.5 [degF]DO Jack Ball Work Phone: 1(841)[address] [place], [place] 7167709-18-2024 11:13-0400 Body kgDO Jack Ball Work Phone: 1(133)[address] [place], [place] 7167709-17-2024 15:18-0400 Body mass index (BMI) [Ratio]23.75 kg/l9JuefvlSneha Ann INFORMATION ASSOC Work Phone: [facility] HospitalRfqhjmnjfw94-30-5682 15:18-0400Body .92 kgSneha Ann INFORMATION ASSOC Work Phone: [facility] HospitalMjsrniserb17-55-0376 15:18-0400Diastolic blood ssovpqdk90 mm[Hg]Sneha Ann INFORMATION ASSOC Work Phone: [facility] HospitalLcevykjunv53-07-4697 15:18-0400Heart rate70 /min Sneha Ann INFORMATION ASSOC Work Phone: [facility] HospitalMawlfbwiaz30-08-3992 15:18-0400Systolic blood fpbpowrx266 mm[Hg]Sneha Ann INFORMATION ASSOC Work Phone: [facility] HospitalSvocwsdvbu24-01-6649 13:22-0400Diastolic blood mlnxarip73 mm[Hg]DO Jack Ball Work Phone: [facility]09-04-2024 13:22-0400 Heart rate82 /minDO Jack Ball Work Phone: [phone]09-04-2024 13:22-0400 Respiratory rate18 /minDO Jack Ball Work Phone: [facility]09-04-2024 13:22-0400 SaO2% (BldA) [Mass fraction]94 %DO Jack Ball Work Phone: [facility]09-04-2024 13:22-0400 Systolic blood nxevlgss972 mm[Hg]DO Jack Ball Work Phone: [facility]06-26-2024 15:42-0400 Body tfavxv915.42 cmDO Jack Ball Work Phone: [facility]06-26-2024 15:42-0400 Body mass index (BMI) [Ratio]28.6 kg/m2DO Jack Ball Work Phone: [facility]06-26-2024 15:42-0400 Body ztolks18.59 kgDO Jack Ball Work Phone: [facility]06-26-2024 15:42-0400 Diastolic blood nxnxnxai54 mm[Hg]DO Jack Ball Work Phone: [facility]06-26-2024 15:42-0400 Heart tdzl867 /minDO Jack Ball Work Phone: [facility]06-26-2024 15:42-0400 Respiratory rate12 /minDO Jack Ball Work Phone: [facility]06-26-2024 15:42-0400 Systolic blood zdyagrom237 mm[Hg]DO Jack Ball Work Phone: [facility]12-20-2023 15:30-0500 Body kklmjy665.42 cmBenjamin Ball Other [facility] [employer] Other 12-20-2023 15:30-0500Body mass index (BMI) [Ratio]28.6 kg/p3Kszqrbnx Ball Other [employer] Other 12-20-2023 15:30-0500Body addlox30.34 kgBenjamin Ball Other [employer] Other 12-20-2023 15:30-0500Diastolic blood oupxmwpj36 mm[Hg] Jack Ball Other [employer] Other 12-20-2023 15:30-0500Respiratory rate12 /minBenjamin Ball Other [place] [employer] Other 12-20-2023 15:30-0500Systolic blood gbymnczm262 mm[Hg] Jack Ball Other [employer] Other 12-15-2023 10:45-0500Body xuhxwu293.42 cmBenjamin Ball Other [facility] Other 12-15-2023 10:45-0500Body mass index (BMI) [Ratio]28.6 kg/x5Weqeankx Ball Other [facility] Other 12-15-2023 10:45-0500Body zzpxug52.34 kgBenjamin Ball Other [facility] Other 12-15-2023 10:45-0500Diastolic blood xzffaatk78 mm[Hg] Jack Ball Other [employer] Other 12-15-2023 10:45-0500Respiratory rate12 /minBenjamin Ball Other [employer] Other 12-15-2023 10:45-0500Systolic blood ivvjvfqy438 mm[Hg] Jack Ball Other [employer] [facility] [employer] Other 09-20-2023 13:30-0400Body voldin433.42 cmBenjamin Ball Other [facility] Other 09-20-2023 13:30-0400Body mass index (BMI) [Ratio] 27.94 kg/a1Cirebpld Ball Other [employer] [facility] [employer] Other 09-20-2023 13:30-0400Body ojrayf81.07 kgBenjamin Ball Other [facility] Other 09-20-2023 13:30-0400Diastolic blood xzuhyzol72 mm[Hg] Jack Ball Other [facility] Other 09-20-2023 13:30-0400Respiratory rate12 /minBenjamin Ball Other [employer] Other 09-20-2023 13:30-0400Systolic blood orgznazv256 mm[Hg] Jack Ball Other [employer] Other 08-15-2023 08:30-0400Body wefxpa802.42 cmBenjamin Ball Other [employer] Other 08-15-2023 08:30-0400Body mass index (BMI) [Ratio] 27.39 kg/o1Uqpxxprg Ball Other [facility] Other 08-15-2023 08:30-0400Body .17 kgBenjamin Ball Other [employer] Other 08-15-2023 08:30-0400Diastolic blood lajijbiq68 mm[Hg] Jack Ball Other [employer] Other 08-15-2023 08:30-0400Respiratory rate12 /minBenjamin Ball Other [facility] Other 08-15-2023 08:30-0400Systolic blood hyholbyg083 mm[Hg] Jack Ball Other [facility] Other 07-07-2023 09:30-0400Body .42 cmBenjamin Ball Other [facility] Other 07-07-2023 09:30-0400Body mass index (BMI) [Ratio] 28.55 kg/x2Fwqczvav Ball Other [facility] Other 07-07-2023 09:30-0400Body ktymkg85.16 kgBenjamin Ball Other [facility] Other 07-07-2023 09:30-0400Diastolic blood hzuzuyby47 mm[Hg] Jack Ball Other [facility] Other 07-07-2023 09:30-0400Respiratory rate12 /minBenjamin Ball Other [facility] Other 07-07-2023 09:30-0400Systolic blood bdwmkpwo836 mm[Hg] Jack Ball Other [facility] Other 06-07-2023 08:45-0400Body slttyi560.42 cmBenjamin Ball Other [facility] Other 06-07-2023 08:45-0400Body mass index (BMI) [Ratio] 27.39 kg/i2Yamounbw Ball Other [facility] Other 06-07-2023 08:45-0400Body khynkz85.17 kgBenjamin Ball Other [facility] Other 06-07-2023 08:45-0400Diastolic blood fhicvwjr00 mm[Hg] Jack Ball Other [facility] Other 06-07-2023 08:45-0400Respiratory rate12 /minBenjamin Ball Other [facility] Other 06-07-2023 08:45-0400Systolic blood msgtgolr953 mm[Hg] Jack Ball Other [facility] Other 05-30-2023 14:30-0400Body nhynpr842.42 cmBenmayte Ball Other [facility] [employer] Other 05-30-2023 14:30-0400Body mass index (BMI) [Ratio] 27.91 kg/h6Fqnydhqv Ball [facility] [employer] Other 05-30-2023 14:30-0400Body oeoqoh70.98 kgBenmayte Ball Other [facility] [employer] Other 05-30-2023 14:30-0400Diastolic blood gvubnzub80 mm[Hg] Jack Ball [facility] [employer] Other 05-30-2023 14:30-0400Respiratory rate12 /minBenamyte Ball Other [employer] Other 05-30-2023 14:30-0400Systolic blood aaliusaz345 mm[Hg] Jack Ball [facility] [employer] Other 04-19-2023 08:23-0400Diastolic blood mm[Hg] [facility] D[facility] 04-19-2023 08:23-0400Systolic blood jnqrfjka652 mm[Hg] Raad [facility]ain. [facility] Dermat[facility] 01-03-2023 11:15-0500Diastolic blood mm[Hg] Vashti Ly DO Work Phone: [facility]01-03-2023 11:15-0500Heart rate72 /min Vashti Ly DO Work Phone: [facility]01-03-2023 11:15-0500Respiratory rate 14 /minCatherine Ly DO Work Phone: [facility]01-03-2023 11:15-3179IvL9% (BldA) [Mass fraction]96 %Vashti Ly DO Work Phone: [facility]01-03-2023 11:15-0500Systolic blood trgfaozj660 mm[Hg]Vashti Ly DO Work Phone: [facility]01-03-2023 10:10-0500Body yqtblh701.5 cmCatherine Ly DO Work Phone: [facility]01-03-2023 10:10-0500Body mass index (BMI) [Ratio]26.25 kg/z5Fznzlszgl Ly DO Work Phone: [facility]01-03-2023 10:10-0500Body jubiil95.25 kgCatherine Ly DO Work Phone: [facility]10-24-2022 10:38-0400Body agmzxl18.16 kgBryn Guy RECTIFYING OPERATOR.TAVERN KEEPER Work Phone: [facility]10-24-2022 10:38-0400Diastolic blood rnqhyoou16 mm[Hg]Shyanne Guy RECTIFYING OPERATOR.TAVERN KEEPER Work Phone: [facility]10-24-2022 10:38-0400Heart rate71 /min Shyanne Guy RECTIFYING OPERATOR.TAVERN KEEPER Work Phone: [phone]10-24-2022 10:38-0400Systolic blood mm[Hg]Shyanne Guy RECTIFYING OPERATOR.TAVERN KEEPER Work Phone: [facility]10-21-2022 09:20-0400Body ertxhb056.42 cmDale Luther Other [facility] Other 10-21-2022 09:20-0400Body mass index (BMI) [Ratio]27.7 kg/m2Dale Luther Other [employer] Other 10-21-2022 09:20-0400Body outcgx88.26 kgDale Luther Other [facility] Other 08-09-2022 10:00-0400Body woiqys215.42 cmDale Luther Other [facility] Other 08-09-2022 10:00-0400Body mass index (BMI) [Ratio] 27.57 kg/m2Dale Luther Other [facility] Other 08-09-2022 10:00-0400Body wzdyzf46.8 kgDale Luther Other [facility] Other 06-27-2022 15:15-0400Body moskoz249.42 cmCameron Ditty Other [facility] Other 06-27-2022 15:15-0400Body mass index (BMI) [Ratio] 27.57 kg/g1Scorjig Ditty Other [facility] Other 06-27-2022 15:15-0400Body onazpi13.8 kgCameron Ditty Other [facility] Other 03-10-2022 16:30-0500Body veieed626.42 cmCameron Ditty Other [facility] Other 03-10-2022 16:30-0500Body mass index (BMI) [Ratio] 29.55 kg/b1Bameuij Ditty Other [facility] Other 03-10-2022 16:30-0500Body ublnqc493.61 kgCameron Ditty Other [facility] Other 03-10-2022 16:30-0500Diastolic blood huhscacx72 mm[Hg] Alvino Ditty Other [facility] Other 03-10-2022 16:30-0500Systolic blood bugsncbh673 mm[Hg] Alvino Ditty Other [facility] Other 12-21-2021 10:30-0500Body rcvwyh568.42 cmCameron Ditty Other [facility] Other 12-21-2021 10:30-0500Body mass index (BMI) [Ratio] 30.21 kg/c4Ysedzzh Ditty Other [facility] Other 12-21-2021 10:30-0500Body tzdpva473.87 kgCameron Ditty Other [facility] Other 11-11-2021 14:45-0500Body kvynxf164.42 cmCameron Ditty Other [facility] Other 11-11-2021 14:45-0500Body mass index (BMI) [Ratio] 29.95 kg/z4Yypxwdu Ditty Other [facility] Other 11-11-2021 14:45-0500Body dfzedg895.97 kgCameron Ditty Other [facility] Other 11-11-2021 14:45-0500Diastolic blood ghqgzawc05 mm[Hg] Alvino Ditty Other [facility] Other 11-11-2021 14:45-0500Systolic blood tfsmfjmi425 mm[Hg] Alvino Rudolph Other [employer] Other 03-08-1976 23:00-0500>na<Bridget Meghanept. of Dermatology Encounters Encounter DateEncounter TypeCare ProviderFacilityStart: 01-18-2025 End: 43-01-9977Mtjayg outpatient visit 15 minutesGregory Diehl DPM Work Phone: KILLIAN Bragg Rob PodiatryComment on above:Other specified disorders of synovium, right ankle and foot (Primary Dx); Left Achilles tendinitis; Posterior tibial tendonitis of right leg; Contracture of left ankle; Contracture of right ankleStart: 01-18-2025 End: 15-47-0827wfwwtrrfnvWXIFJZNT A BROWNNot AvailableStart: 01-18-2025 End: 53-38-1105Ljqhtx Sammy Diehl DPM Work Phone: noMS Bragg Rob PodiatryStart: 01-18-2025 End: 47-15-8352Ilqffb Sammy Diehl DPM Work Phone: noMS Bragg Rivas PodiatryStart: 01-06-2025 End: 03-74-3960wyhhxdfncrJauytev Kelbley PTANOMS Raymond Physical TherapyComment on above:Left Achilles tendinitis (Primary Dx)Start: 01-06-2025 End: 60-62-9312Oqdfeu flowsheetMelissa Kelbley [facility] Start: 01-06-2025 End: 84-48-5381Siswtv flowsheetMelissa Kelbley [facility] Start: 01-06-2025 End: 34-94-5243ffcllvplquPziwjtwa Ball DO Work Phone: [phone]-Epxcfdipt Health CardiologyStart: 01-06-2025 End: 37-81-7713Gkzsuom encounter procedureGekyara Agarwal MD-[facility] Work Phone: Start: 01-04-2025 End: 99-14-6525Lgdego outpatient visit 15 John Diehl DPM Work Phone: KILLIAN Rivas PodiatryComment on above:Other specified disorders of synovium, right ankle and foot (Primary Dx); Achilles tendon tear, left, initial encounter; Left Achilles tendinitis; Posterior tibial tendonitis of right leg; Contracture of left ankle; Contracture of right ankleStart: 01-04-2025 End: 68-84-3291yqfajdeyzkWGHEECII A BROWNNot AvailableStart: 01-04-2025 End: 84-95-7521Xacdvb flowsheetGregory Diehl DPM Work Phone: noMS Yemi Rivas PodiatryStart: 01-04-2025 End: 23-87-2156Nudufb flowsFina Diehl DPM Work Phone: noMS Yemi Rivas PodiatryStart: 12-29-2024 End: 82-81-0084wcbpdqropfLpsfyiko Brink PTANOMS Raymond Physical TherapyComment on above:Left Achilles tendinitis (Primary Dx)Start: 12-29-2024 End: 92-41-1822Iggzni flowsheetMarshall Brink [facility] Start: 12-29-2024 End: 72-71-1800Kbtanb flowsheetMarshall Brink [facility] Start: 12-29-2024 End: 43-26-4535Rzrazai encounter Maile Diehl DPM-MRI [address] [facility] Work Phone: Start: 12-29-2024 End: 85-17-3304zqfskotpxzFvapohsr Ball DO Work Phone: -MRI [address] ClosedStart: 12-23-2024 End: 12-36-1601hwvogsvovcXmwhsmcb Ball DO Work Phone: [facility] Work Phone: Start: 12-23-2024 End: 78-84-6985Rnpczag encounter procedureJack Ortega [facility] Work Phone: Start: 12-23-2024 End: 21-53-0573Rgvzxfd encounter statusJack [facility]tega [facility] 12-22-2024 End: 25-06-7993xmsnhfzkuvSqcliagf Brink PTANOMS Raymond Physical TherapyComment on above:Left Achilles tendinitis (Primary Dx)Start: 12-22-2024 End: 29-63-5640Jjowug flowsheetMarshall Brink PTANOM[facility] Start: 12-22-2024 End: 46-59-9612Ndixvc flowsheetMarshall Brink [facility]AN[facility] Start: 12-15-2024 End: 10-13-1346zdnpudeavuVxtjlsxv Brink PTANOMS Raymond Physical TherapyComment on above:Left Achilles tendinitis (Primary Dx)Start: 12-15-2024 End: 59-65-0995Vdeirj flowsheetMarshall Brink [facility]AN[facility] Start: 12-15-2024 End: 24-39-5802Uqvccx flowsheetMarshall Brink [facility]AN[facility] Start: 12-10-2024 End: 13-17-6099Xxzews outpatient visit 15 minutesGregory Diehl DPM Work Phone: noms [facility] PODIATRYComment on above:Achilles tendon tear, left, initial encounter (Primary Dx); Left Achilles tendinitis; Contracture of left ankle; Other specified disorders of synovium, right ankle and foot; Posterior tibial tendonitis of right legStart: 12-10-2024 End: 19-07-5986skqqdhirjlHHVUXICW A BROWNNot AvailableStart: 12-10-2024 End: 40-39-4146Hfoeol Sammy Diehl DPM Work Phone: noMS CI PODIATRYStart: 12-10-2024 End: 31-74-5954Grvzvo Sammy Diehl DPM Work Phone: noms CI PODIATRYStart: 12-08-2024 End: 97-68-9920viorbdfzdyZdnbgjlg Brink PTANOMS Raymond Physical TherapyComment on above:Left Achilles tendinitis (Primary Dx)Start: 12-08-2024 End: 17-42-6494Yhpxqj flowsheetMarshall Brink PTANOMS [facility] Start: 12-08-2024 End: 21-70-4430Czttoe flowsheetMarshall Brink PTANOMS [facility] Start: 12-01-2024 End: 83-30-8943gdbubajnqgRulnxedh Brink PTANOMS Raymond Physical TherapyComment on above:Left Achilles tendinitis (Primary Dx)Start: 12-01-2024 End: 14-12-3234Burmey flowsheetMarshall Brink PTANOMS [facility] Start: 12-01-2024 End: 44-58-4188Xevknq flowsheetMarshall Brink PTANOMS [facility] Start: 11-24-2024 End: 38-05-6020emcvxladybNdmvanyke Pittman PTNOMS [facility] Comment on above:Left Achilles tendinitisStart: 11-24-2024 End: 58-77-7925Xqgysw flowsheetSammantha Pittman PTNOMS [facility] Start: 11-24-2024 End: 27-25-6811Jfxmuo flowsheetSammantha Pittman PTNOMS [facility] Start: 11-19-2024 End: 86-47-4143Udvxryr encounter procedureShyanne Rodríguez APRN.TAVERN KEEPER Work Phone: GastroenterologyComment on above:Gastroesophageal reflux disease without esophagitis (Primary Dx); Irritable bowel syndrome with constipationStart: 11-19-2024 End: 30-60-6633eoptoiolihPMKM M DESANTISFacility:[facility] Hospitaltart: 11-10-2024 End: 32-94-4548iptbgybbgdKTFPOQIV A BROWNNot AvailableStart: 11-10-2024 End: 02-73-7257Hlszgu Sammy Diehl DPM Work Phone: NOMS Yemi Rivas PodiatryStart: 11-10-2024 End: 46-90-6016Zeunyz flowsheetNicholas A Brown DPM Work Phone: KILLIAN Rivas PodiatryStart: 11-10-2024 End: 82-88-0699Wuscyl outpatient visit 15 minutesNicholas A Brown DPM Work Phone: noMS Yemi Rivas PodiatryComment on above:Left Achilles tendinitis (Primary Dx); Contracture of left ankle; Other specified disorders of synovium, right ankle and foot; Posterior tibial tendonitis of right legStart: 10-23-2024 End: 90-69-3958Jwbvgo flowsheetNicholas A Brown DPM Work Phone: KILLIAN Rivas PodiatryStart: 10-23-2024 End: 20-07-0605Lolwwy flowsheetNicholas A Brown DPM Work Phone: KILLIAN Rivas PodiatryStart: 10-23-2024 End: 62-97-8003Yvmpdo outpatient visit 15 minutesNicholas A Brown DPM Work Phone: noMS Yemi Rivas PodiatryComment on above:Other specified disorders of synovium, right ankle and foot (Primary Dx); Posterior tibial tendonitis of right leg; Left Achilles tendinitis; Contracture of left ankleStart: 10-23-2024 End: 83-05-2298wwyrxsecdmJTRWWBUV A FAZALNot AvailableStart: 10-16-2024 End: 86-31-7466Ueikum flowsheetNicholas A Brown DPM Work Phone: noMS Yemi Rivas PodiatryStart: 10-16-2024 End: 85-91-8824Cnpaag flowsheetNicholas A Brown DPM Work Phone: KILLIAN Rivas PodiatryStart: 10-16-2024 End: 07-25-5615xbssuvtcgmJPHRMIGF A BROWNNot AvailableStart: 10-16-2024 End: 81-28-5530Rqhbvk outpatient visit 15 minutesNicholas A Brown DPM Work Phone: NOKB Yemi Rivas PodiatryComment on above:Other specified disorders of synovium, right ankle and foot (Primary Dx); Posterior tibial tendonitis of right leg; Contracture of left ankle; Left Achilles tendinitisStart: 10-07-2024 End: 96-62-3737mdmwyigpkdHprikxkw Ball DO Work Phone: [facility] Work Phone: Start: 10-07-2024 End: 21-06-0795Srrwgin encounter procedureBenjamin Ball DO-[facility] Work Phone: Start: 09-29-2024 End: 78-92-1596bcvkoaudqhLxpdkqxb Ball DO Work Phone: [facility] Work Phone: Start: 09-29-2024 End: 59-69-0181Hqqdzml encounter procedureSmarvin Cline XBOF-ZMI-H-[facility] Niranjan Work Phone: Start: 09-23-2024 End: 17-01-1019dspwyqfjflRdcmclly Ball DO Work Phone: [facility] Work Phone: Start: 09-23-2024 End: 42-18-7061Jnttqys encounter procedureGita Valentin RECTIFYING OPERATOR TAVERN KEEPER-[facility] Work Phone: Start: 08-21-2024 End: 12-50-8860Xujluon encounter procedureBenjamin Ball DO-[facility] Work Phone: Start: 07-02-2024 End: 84-93-6144Qpajir outpatient visit 15 minutesGregory Diehl DPM Work Phone: noms PODIATRYComment on above:Other specified disorders of synovium, right ankle and foot (Primary Dx); Posterior tibial tendonitis of right leg; Contracture of right ankleStart: 07-02-2024 End: 87-09-8580yftigqmfqhEWMSKFTZ A BROWNNot AvailableStart: 07-02-2024 End: 04-50-5469Jpmzvm flowsheetNicholas A Brown DPM Work Phone: noms CI PODIATRYStart: 07-02-2024 End: 03-97-0299Unmzfg flowsheetNicholas A Brown DPM Work Phone: noms CI PODIATRYStart: 06-02-2024 End: 99-95-3094zyajgoqnvtFbcyxpj P COOKFacility:EU SanduskyStart: 05-14-2024 End: 44-16-3776Nvjria flowsheetNicholas A Brown DPM Work Phone: noms CI PODIATRYStart: 05-14-2024 End: 12-28-7446Ftymmy flowsheetNicholas A Brown DPM Work Phone: noms CI PODIATRYStart: 05-14-2024 End: 44-81-2476Nklayd outpatient visit 15 minutesNicholas A Brown DPM Work Phone: noms CI PODIATRYComment on above:Other specified disorders of synovium, right ankle and foot (Primary Dx); Posterior tibial tendonitis of right legStart: 05-14-2024 End: 38-97-9697tjndctzojgSUQLZFBO A BROWNNot AvailableStart: 04-30-2024 End: 49-10-3390Wstkzp flowsheetNicholas A Brown DPM Work Phone: noms CI PODIATRYStart: 04-30-2024 End: 08-26-7867Kpnukd flowsheetNicholas A Brown DPM Work Phone: noms CI PODIATRYStart: 04-30-2024 End: 34-42-0727Lrpoos outpatient new 30 minutesNicholas A Brown DPM Work Phone: noms CI PODIATRYComment on above:Posterior tibial tendonitis of right leg (Primary Dx); Other specified disorders of synovium, right ankle and foot; Contracture of right ankleStart: 04-30-2024 End: 37-20-8295bsqbujsomyVXAPOXQV A BROWNNot AvailableStart: 04-22-2024 End: 92-61-7339suhdyqadsuHcxyFlip Tillman MDFacility:[facility] HospitalStart: 04-06-2024 End: 02-30-8765Zkdsrf outpatient visit 15 minutesSarashi Cline INFORMATION ASSOC Work Phone: ana BELLEVUEComment on above:Chronic migraine with aura without status migrainosus, not intractable (CMS/HCC) (Primary Dx); DIANA (obstructive sleep apnea); DDD (degenerative disc disease), cervical; Carpal tunnel syndrome, left; Chronic low back pain, unspecified back pain laterality, unspecified whether sciatica present; Malignant melanoma of left ear (CMS/HCC)Start: 04-06-2024 End: 57-49-2829rlutuykofhSJVTS CARROLLNot AvailableStart: 03-28-2024 End: 06-53-2327OgxvywAwffys Morris NP Work Phone: ana BELLEVUEComment on above:Chronic migraine without aura, not intractable, without status migrainosus (CMS/HCC)Start: 02-20-2024 End: 89-31-3453qmdkimujjrOyjrFlip Tillman MDFacility:[facility] HospitalStart: 01-24-2024 End: 95-61-4117raotqchigrFdzmFlip Tillman MDFacility:[facility] Start: 01-17-2024 End: 65-66-4359moltkurotlSkjcFlip Tillman MDFacility:[facility] Start: 01-10-2024 End: 03-98-6684agdfvgsturMnnkFlip Tillman MDFacility:[facility] Start: 01-02-2024 End: 87-61-4038bzpcothrazMcrpFlip Tillman MDFacility:[facility] HospitalStart: 12-31-2023 End: 76-08-8904hbvwvcjptaQJVicky Ortega Work Phone: [facility] Work Phone: Start: 12-31-2023 End: 49-91-7060Qfiintp encounter procedureDO Jack [employer] Work Phone: [facility]-Ultrasound [place] Work Phone: Start: 12-27-2023 End: 49-92-9357bwxuactztaTfucwqjxFahad Collado MDFacility:[facility] HospitalStart: 12-26-2023 End: 01-82-5881csyegyxknsHD [facility] Work Phone: [facility] Work Phone: Start: 12-26-2023 End: 84-20-4185Olzxsqy encounter procedureDO [facility] Work Phone: [facility]-Electrodiagnostics Work Phone: Start: 12-23-2023 End: 82-65-2467Xslslczpv for general adult medical examination without abnormal findingsDO [facility] Work Phone: [facility]: 12-23-2023 End: 56-24-2802Unumdhr encounter procedureDO [facility] Work Phone: [facility] Work Phone: Start: 77-80-4527Cncnskj encounter statusDO [facility] Work Phone: [facility]tart: 12-16-2023 End: 31-56-2128jirkioaqrvInpq M Desantis APRN.TAVERN KEEPER Work Phone: GastroenterologyComment on above:Irritable bowel syndrome with constipation (Primary Dx); Gastroesophageal reflux disease without esophagitisStart: 12-16-2023 End: 51-11-2075Rekihwzkvlwg consultation with patientShyanne Rodríguez APRN.TAVERN KEEPER Work Phone: GastroenterologyStart: 12-11-2023 End: 98-45-3805iqbyymktatCknnFlip Tillman MDFacility:[facility] Start: 12-02-2023 End: 24-14-1307nxjovtmwyrKiqbFlip Tillman MDFacility:[facility] HospitalStart: 12-02-2023 End: 96-91-3862vryjhdapdkIvtgFlip Tillman MDFacility:[facility] Start: 13-31-7026Kmw-patient / Non-visitDO Jack Ortega Work Phone: [facility] Work Phone: Start: 11-27-2023 End: 78-37-8779Ufcnwxsbv to same day surgery centerDO Jack Ortega Work Phone: [facility]-Customer Support Coordinator Work Phone: Start: 11-27-2023 End: 61-65-7085fidsuqwverFD Jack Ortega Work Phone: [facility] Work Phone: Start: 11-26-2023 End: 94-82-1280Ipejaq outpatient visit 25 minutesSneha Ann INFORMATION ASSOC Work Phone: noms [facility] R[facility]TEComment on above:Migraine without status migrainosus, not intractable, unspecified migraine type (CMS/HCC) (Primary Dx); DIANA (obstructive sleep apnea); DDD (degenerative disc disease), cervical; Carpal tunnel syndrome, left; Chronic low back pain, unspecified back pain laterality, unspecified whether sciatica present; Malignant melanoma of left ear (CMS/HCC)Start: 11-26-2023 End: 72-18-6809Iaoptj Ranjit Ann INFORMATION ASSOC Work Phone: noMS [facility] ROUTEStart: 11-26-2023 End: 27-00-8825Mtlpsn Ranjit Ann INFORMATION ASSOC Work Phone: noms [facility] ROUTEStart: 11-25-2023 End: 17-01-2911uwhkpdxhnlWO Jack Ortega Work Phone: [facility] Work Phone: Start: 11-25-2023 End: 60-84-1783Lznshfj encounter procedureDO Jack Ortega Work Phone: [facility] Dki-Avy-Ivwdsimz Testing Work Phone: Start: 11-13-2023 End: 52-95-7231plgvatttlkFG Jack Ortega Work Phone: [facility] Work Phone: Start: 11-13-2023 End: 02-30-1353Dkcjzsi encounter procedureDO Jack rOtega Work Phone: [facility] Work Phone: Start: 09-04-2023 End: 18-44-2215Eszysne encounter procedureDO Jack Ortega Work Phone: [facility] Work Phone: Start: 39-21-9000WmgkvwKaqtKatia Rodríguez APRN.TAVERN KEEPER Work Phone: GastroenterologyComment on above:Refill RequestStart: 03-06-2023 End: 70-67-3875ekbnlvcvdpWutupyja Ball Other [employer] Other Start: 12-19-2956Uitvnnfnb encounterBenjamin BallFPG [facility] ClinicStart: 03-05-2023 End: 84-87-6766ftvtuyddrpSvenqnqz Ball Other [employer] Other Start: 75-83-6423Jwdgvh outpatient visit 15 minutes Jack BallBRYANG [facility] ClinicStart: 24-74-9180Dcdcsgqei encounterBenjamin BallFPG [facility] ClinicStart: 03-01-2023 End: 11-02-1942qeufdorxfsYixpjwmv Ball Other [facility] Other Start: 20-18-8235Jiuwwnxkc encounterBenjamin BallFPG [facility] ClinicStart: 02-27-2023 End: 07-28-2693yflyxjnreoRicdiglp Ball Other [employer] Other Start: 96-41-6106Uelqqi outpatient visit 25 minutes Jack BallFPG [facility] ClinicStart: 02-25-2023 End: 67-66-2661nrvzjpkmykFunphadu Ball Other [employer] Other Start: 36-12-5016Pkmmnjgqk encounterBenjamin BallFPG [facility] ClinicStart: 02-22-2023 End: 43-83-9343huclnuyujyVyyfcyed Ball Other [employer] Other Start: 67-12-0938Uvhuvb outpatient visit 15 minutes Jack BallFPG [facility] ClinicStart: 02-11-2023 End: 08-94-1536zjdknyqvplOlbeeuza Ball Other [employer] Other Start: 18-47-7631Dhchffdyc encounterBenjamin BallFPG [facility] ClinicStart: 02-04-2023 End: 21-48-7202fhvucpcgnmSaeqwswa Ball Other [employer] Other Start: 76-80-8097Qpzhhg outpatient visit 15 minutes Jack BallFPG [facility] ClinicStart: 12-09-2022 End: 45-60-9093bajropmanrVpstorgi Ball Other [employer] Other Start: 20-98-3131Gulxgxdpt encounterBenjamin BallFPG [facility] ClinicStart: 11-28-2022 End: 33-57-6895qzpufjqpgfKjzdixgo Ball Other [employer] Other Start: 25-22-9001Orrtwxlef for general adult medical examination without abnormal findingsBenjamin BallFPG [facility] ClinicStart: 20-08-2176Yhewdtlc preventive med est patient 40-64yrsBenmayte Ortega Medical ClinicStart: 11-16-2022 End: 95-60-1979wccvhnnbzqZndxbvdo Ball Other [employer] Other Start: 89-45-1602Zofcswejg encounterJack Ortega Medical ClinicStart: 10-23-2022 End: 67-17-4808knjrdbynnaFogsvezx Ball Other [employer] Other Start: 94-11-3035Rkpjwstab for other preprocedural examinationBepurvi Ortega Medical ClinicStart: 41-04-6095Mqrtyu outpatient visit 25 minutesJack Ortega Medical ClinicStart: 09-24-2022 Orders Vicki Rodríguez APRN.TAVERN KEEPER Work Phone: GastroenterologyStart: 09-14-2022 End: 80-88-4728xixovjbebcApatnhfc Ball Other [employer] Other Start: 51-35-3561Hhghod outpatient visit 15 minutes Jack Ortega Medical ClinicStart: 35-24-8005yykaxlqsmaKYY UNKNOWN Facility:9522Start: 75-90-8616Otohal outpatient visit 15 minutesRaad Cline Dept. of Dermatology Start: 51-47-9512Hjlmgc follow up visit related to original pxRaad ClineDept. of Dermatology Start: 08-15-2022 End: 91-45-8756zyzwzejnpbUhobfdfv Ball Other [employer] Other Start: 78-77-4589Ecuikr outpatient visit 15 minutes Jack Ortega [facility] ClinicStart: 01-58-3849fawhipjipzGI JACK ORTEGA Facility:A2Mxjis: 08-08-2022 End: 27-01-0668lsjtiumukjYvdsrutv Ball Other [facility] [employer] Other Start: 68-40-4091Uvfmmotdw encounterBepurvi Ortega Medical ClinicStart: 08-07-2022 End: 80-72-9720nwnolfdbpxEU JACK ORTEGAOrlando [employer] Other Start: 76-52-2039Xzpfaioml for other preprocedural examinationBenmayte Ortega Medical ClinicStart: 58-61-0546Rdxmiq outpatient visit 25 minutesBenmayte Ortega Medical ClinicStart: 07-20-2022 ambulatoryPt States None PCPFacility:9366Start: 33-33-5516Hxusgu outpatient visit 15 minutesBryan CarrollDept. of Dermatology Start: 75-48-2494Zdwdxc follow up visit related to original pxBryan CarrollDept. of Dermatology Start: 38-91-3034Lzojdya PaulDept. of Dermatology Start: 37-09-6920xziywppyrtPgDean Glez Facility:9522Start: 89-90-1575Tmnooa follow up visit related to original px Kirsty PaulDept. of Dermatology Start: 07-11-2022 End: 59-17-3862yufaaplpitIM Jack Ortega Work Phone: [facility] Work Phone: Start: 07-11-2022 End: 72-85-7397Bxfnxpp encounter procedureDO Jack Ortega Work Phone: [facility] Work Phone: Start: 88-91-8148Qaxi LarsonDept. of Dermatology Start: 31-87-6986Gmrvw CarrollDept. of Dermatology Start: 99-59-5105dwhyxnimeiSz. Devin Jorge Facility:9324Start: 90-31-3571bmdendmlsfBX [place] Shawn LINDAOCSFacility:9522Start: 56-76-0157Bnmkza OnlyShyanne Rodríguez APRN.TAVERN KEEPER Work Phone: GastroenterologyStart: 37-89-7175Bpkc LarsonDept. of Dermatology Start: 91-01-6276hoteikiodqEi. Devin Jorge Facility:9324Start: 05-25-2022 End: 30-27-8991yvsqkudtorXG Jack Ortega Work Phone: [facility] Work Phone: Start: 05-25-2022 End: 06-07-4056Tpyaonr encounter procedureDO Jack Ortega Work Phone: [facility] Work Phone: Start: 65-62-9454Rqccfgahx encounterShyanne Rodríguez APRN.TAVERN KEEPER Work Phone: GastroenterologyComment on above:ResultsStart: 88-91-9483Pvrtsajxh encounterCatherine Ly DO Work Phone: GastroenterologyComment on above:Patient Question (Fax MRE orders to [facility])Start: 16-53-4028AowlcoSedxRik Rodríguez APRN.TAVERN KEEPER Work Phone: GastroenterologyComment on above:Refill RequestStart: 03-21-2022 End: 55-50-9547hkdrtdolgvZlif Luther Other [place] [employer] Other start: 26-81-8612Jpqlcxwpg encounterDale Derian [facility] ClinicStart: 62-93-9522Rsdcwstkt encounterShyanne Rodríguez APRN.CNP Work Phone: GastroenterologyComment on above:ResultsStart: 03-13-2022 End: 81-60-9029Mvphgnqgur hospital visit by physicianCatliam Llamas DO Work Phone: ambulatory SurgeryComment on above:Diarrhea, unspecified type [R19.7]Start: 03-07-2022 End: 22-55-3837ljxodfjrzsTHPNAF DANNERFacility:T2Nweja: 04-60-2958Oqcrysqyz encounterCatherdeila Ly DO Work Phone: GastroenterologyComment on above:Appointment (E/C) Start: 02-14-2022 End: 12-54-9125acwjlsmjqxSKKFIX DANNERFacility:S5Qiazz: 33-08-8170DlnzqhQaenRik Rodríguez APRN.TAVERN KEEPER Work Phone: GastroenterologyComment on above:Refill RequestStart: 01-01-2022 End: 71-75-7112Dauouki encounter Kamilla Rodríguez APRN.TAVERN KEEPER Work Phone: GastroenterologyComment on above:Diarrhea, unspecified type (Primary Dx); Esophageal dysphagia; Irritable bowel syndrome with diarrheaStart: 12-29-2021 End: 71-52-4888hiclvdujzfUbtp Braun Other [employer] [facility] [employer] Other start: 70-01-5021Iokgez outpatient visit 15 minutes [facility] NeurosurgeryStart: 10-17-2021 End: 89-20-3214npzpwaghwwWwuv Braun Other [employer] Other start: 64-87-4304Cjyxjv outpatient visit 15 minutes [facility] NeurosurgeryStart: 10-12-2021 End: 22-24-6486iyadofiwugTosrhcc Ditty Other [employer] Other Start: 70-50-9254Ddhdhuvfh encounterAlvino Greco Referral CoordinatorStart: 10-02-2021 End: 86-52-9971Aqqtypj encounter procedureDO Jack Ortega Work Phone: [facility] CampusStart: 09-04-2021 End: 97-26-6935njayyhwfllDphuycz Ditty Other [employer] Other Start: 41-69-5240Jzmjzsr encounter procedureCameron DittyFPG GastroenterologyStart: 08-25-2021 End: 89-36-6253nrpzwyhlcuRZIN E BRAUNFacility:[facility] HospitalStart: 08-13-2021 End: 20-59-8847vnimspotiaSsqzjiz Ditty Other [employer] Other Start: 04-80-4803Soioejboj encounterCameron DittyFPG GastroenterologyStart: 07-19-2021 End: 90-10-0642nucyssncqlYMNM E BRAUNFacility:[facility] HospitalStart: 2021 End: 43-34-7073sgojzieuvoFpujlgx Ditty Other [employer] Other Start: 31-29-8701Hmsgaal encounter procedureCameron DittyFPG GastroenterologyStart: 02-28-2021 End: 61-48-9049cykrdynbnfIkwuahw Ditty Other [employer] Other Start: 67-28-5751Jdhcqwl encounter procedureCameron DittyFPG GastroenterologyStart: 01-19-2021 End: 18-05-5720pwztlkpqduTpandhf Ditty Other [employer] Other Start: 85-66-2883Xonetiw encounter procedureCameron DittyFPG Gastroenterology Procedures DateProcedureProcedure DetailPerforming ClinicianStart: 59-39-7059IHS of left ankleBenjamin Jordan DO Work Phone: Start: 18-38-5526OC scan of thyroidDO Jack Ortega Work Phone: Start: 80-45-3846OS LHC & COR AngioDO Jack Ortega Work Phone: Start: 11-08-4382FC Jack Ortega Work Phone: Start: 39-59-3891T-ray of lumbar spine, four viewsDO Jack Ortega Work Phone: Start: 02-96-8422Wuow micrographic h/n/h/f/g 1st stage 5 blocksBryan CarrollStart: 50-94-9120Lhye LarsonStart: 97-36-4044Mpfzv X-ray of left hipDO Jack Ortega Work Phone: Start: 69-05-1175Nbszxggrpxs flx dx w/collj spec when pfrmdStolina So RECTIFYING OPERATOR.TAVERN KEEPER Work Phone: start: 20-57-9108Rjaog iv surg pathology gross&microscopic examCatherine Ly DO Work Phone: Start: 76-90-2843Ulxjmpdklmvzhmjhackixtppuu transoral diagnosticStolina So RECTIFYING OPERATOR.TAVERN KEEPER Work Phone: start: 73-06-0045PjeqvngcjzuUiny Guy RECTIFYING OPERATOR.TAVERN KEEPER Work Phone: Start: 99-60-2517WHC of headDO Jack Ortega Work Phone: Plan of Treatment DateCare ActivityDetailAuthorStart: 60-36-2582Aezyiudpo for malignant neoplasm of colonNOMS HealthcareStart: 63-88-9965UvdegkiwkenALOFDICWOVDDnwkbzced Clinic Start: 12-30-2571JDZNPHKLBC CANCER SCREENINGCOLORECTAL CANCER SCREENINGMartin Memorial Hospitaltart: 19-51-8000Jygsikfbm for malignant neoplasm of colonMartin Memorial Hospitaltart: 01-19-2025 End: 18-24-8775yewuhhibmt26/01/2025 2:00 PM EST Treatment [facility] [address] [facility] [address] [place], [id number] Ilsa Pittman PTNOMS [facility] TherapyStart: 01-18-2025 End: 87-70-5171Adzcragz SupportNOMS Yemi Rivas PodiatryComment on above: Other specified disorders of synovium, right ankle and foot (Primary Dx); Left Achilles tendinitis; Posterior tibial tendonitis of right leg; Contracture of left ankle; Contracture of right ankleStart: 01-06-2025 End: 07-30-9654grsbxwncshEGAW [facility] TherapyComment on above:Arrived Start: 01-04-2025 End: 05-88-9145Dwpmbnr encounter procedureNOMS Yemi Rivas PodiatryComment on above:Other specified disorders of synovium, right ankle and foot (Primary Dx); Achilles tendon tear, left, initial encounter; Left Achilles tendinitis; Posterior tibial tendonitis of right leg; Contracture of left ankle; Contracture of right ankleStart: 12-29-2024 End: 35-10-0018xnmwgcxncaZXWF [facility] TherapyComment on above:Arrived Start: 12-22-2024 End: 82-99-6552nggupbbwgi45/14/2025 5:30 PM EDT Treatment [facility] [address] [facility] [address] [place], [id number] Jeaneth Farrar PTANOMS [facility] Physical TherapyStart: 12-15-2024 End: 75-45-2417wmqpanjyxgVCUM [facility] TherapyComment on above:Arrived Start: 12-10-2024 End: 53-17-9436Izgnvmp encounter procedureKILLIAN LOPEZ PODIATRYComment on above:Left Achilles tendinitis (Primary Dx); Contracture of left ankle; Other specified disorders of synovium, right ankle and foot; Posterior tibial tendonitis of right legStart: 12-08-2024 End: 73-33-5775zjoqufhxbyWYZX [facility] TherapyComment on above:Left Achilles tendinitis (Primary Dx)Start: 12-01-2024 End: 92-32-1423yzgaetzbpuHWLM [facility] TherapyComment on above:Arrived Start: 11-24-2024 End: 61-30-1412rcavzopesa99/16/2025 2:30 PM EDT Evaluation [facility] [address] [facility] [address] [place] [address] Ilsa Pittman, PT Left Achilles tendinitisNOMS [facility] Comment on above:Left Achilles tendinitisStart: 88-98-8997QWFAW-19 Vaccine ( season)COVID-19 Vaccine ()[facility]OMS HealthcareStart: 32-43-9058Yutlguiof vaccinationInfluenza Vaccine (#1)[facility] HealthcareStart: 10-23-2024 End: 78-08-1641Nzthexp encounter jnnnvnoik99/15/2025 10:40 AM EDT Office Visit [facility] [address] [place] [id number] Gregory Diehl DPM [address] [facility] [address] [place] [address] Other specified disorders of synovium, right ankle and foot (Primary Dx); Posterior tibial tendonitis of right leg; Left Achilles tendinitis; Contracture of left ankleNOND Magnolia Rob PodiatryComment on above:Other specified disorders of synovium, right ankle and foot (Primary Dx); Posterior tibial tendonitis of right leg; Left Achilles tendinitis; Contracture of left ankleStart: 09-29-2024 End: 93-97-5781Llyllyl encounter xluppttug13/22/2025 8:20 AM EDT Office Visit FABY UREÑA [address] [place] [address] Leslye Cline NP [address] [place] [address] FABY SMITHtart: 07-02-2024 End: 11-44-2908Unqrcyv encounter bqofynahf40/24/2025 3:00 PM EDT Office Visit [facility] [address] [facility] [address] [place] [address] Gregory Diehl DPM [address] [address] Other specified disorders of synovium, right ankle and foot (Primary Dx); Posterior tibial tendonitis of right leg; Contracture of right ankleNOMS CI PODIATRYComment on above:Other specified disorders of synovium, right ankle and foot (Primary Dx); Posterior tibial tendonitis of right leg; Contracture of right ankleStart: 06-11-2024 End: 02-08-2269Dcqmzrp encounter pdqfavejw92/03/2025 8:50 AM EDT Office Visit [facility] [address] [facility] [address] [place] [address] Gregory Diehl DPM [address] [address] NOMS CI PODIATRYStart: 05-14-2024 End: 36-01-5399Ireedprc Thdvxkm3605/14/2024 8:50 AM EST Clinical Support [facility] [address] [address] [place] [address] Gregory Diehl, MER [address] [address] Other specified disorders of synovium, right ankle and foot (Primary Dx); Posterior tibial tendonitis of right legNOMS CI PODIATRYComment on above:Other specified disorders of synovium, right ankle and foot (Primary Dx); Posterior tibial tendonitis of right legStart: 04-30-2024 End: 88-54-5281Dehnnee encounter ehwcnfkul04/20/2025 8:40 AM EST Office Visit [facility] [address] [facility] [address] [place] [address] Gregory Diehl, DPM [address] [address] ArrivedNOMS CI PODIATRYComment on above:ArrivedStart: 04-06-2024 End: 15-17-2976Lsxhctw encounter byftpcoio06/27/2025 8:20 AM EST Office Visit FABY UREÑA [address] [place] [address] Leslye Cline NP [address] [place] [address] FABY SMITHtart: 01-20-2024 End: 15-61-0565Auoobqj encounter mjklnagpr72/11/2024 1:40 PM EST Office Visit NOMEllen URE[address] [place] [address] Sneha Ann NP [address] [place], [place] [phone] NOMEllen UREÑA [facility] ROUTEStart: 11-27-2023 Patient referralBrecksville [facility] Work Phone: Start: 11-27-2023 End: 76-96-8260KefkauorwProMedica Flower Hospitaltart: 11-26-2023 End: 98-86-5598Fkklhdx encounter vtylexjyu32/17/2024 3:00 PM EDT Office Visit KILLIAN UREÑ[address] [place] [address] Sneha Ann NP [address] [place], [place] [id number] ArrivedKILLIAN UREÑA [facility] ROUTEComment on above:ArrivedStart: 24-67-3962Feamj-19 Vaccine ( season)Covid-19 Vaccine ( season)[facility]: 19-04-4628Avpac-19 Vaccine ( season)Covid-19 Vaccine ( season)[facility]: 10-40-3608Yhvhwebyy vaccinationDennard ClinicStart: 50-82-3961Fybiajk [facility] Work Phone: Start: 56-84-5861Zuzcftnfcv Health ScreeningBehavioral Health ScreeningMartin Memorial Hospitaltart: 74-30-4216Fplqi-19 Vaccine ( season)Covid-19 Vaccine ( season)[facility]: 11-09-2022 Influenza vaccinationMartin Memorial Hospitaltart: 60-85-3554ZRHHLWJIPO ASSESSMENT DEPRESSION ASSESSMENTMartin Memorial Hospitaltart: 01-01-2022 End: 42-07-4244Cqwjuacxqklbgz difficile toxin genes [Presence] in Stool by CHON with probe detectionC. DIFFICILE PCR Lab Routine Diarrhea, unspecified type Expected: 01/01/2022 (Approximate), Expires: 03/03/2022[facility] Work Phone: Comment on above:Expected: 01/01/2022 (Approximate), Expires: 03/03/2022tart: 01-01-2022 End: 73-87-5451DJHCSVE BACTERIAL PANEL BY PCRENTERIC BACTERIAL PANEL BY PCR Lab Routine Diarrhea, unspecified type Expected: 01/01/2022 (Approximate), Expires: 03/03/2022[facility] Work Phone: Comment on above:Expected: 01/01/2022 (Approximate), Expires: 03/03/2022tart: 01-01-2022 End: 50-41-9492Ahwgyve lamblia+Cryptosporidium sp Ag [Presence] in Stool by ImmunoassayCRYPTOSPORIDIUM AND GIARDIA ANTIGENS BY EIA Microbiology Routine Diarrhea, unspecified type Expected: 01/01/2022, Expires: 03/03/2022[facility] Work Phone: Comment on above:Expected: 01/01/2022, Expires: 03/03/2022tart: 01-01-2022 End: 21-72-4463DEFZ ELASTASE, FECALPANC ELASTASE, FECAL Lab Routine Diarrhea, unspecified type Expected: 01/01/2022, Expires: 03/03/2022[facility] Work Phone: Comment on above:Expected: 01/01/2022, Expires: 03/03/2022tart: 06-09-6961Xuixrvaka vaccinationINFLUENZA (#1)[facility] Start: 94-03-6583TK pre/post mri xrayXR pre/post mri xrayProMedica Flower Hospitaltart: 10-27-2021 End: 67-24-2050Xlgblzx encounter procedureDeparted ClinicalBrecksville Va / [facility]-MRI Main CampusStart: 99-77-9720MQ lumbar spine wo conMR lumbar spine wo [facility] Centertart: 95-95-7192XJKHG-19 VACCINE (4 - Booster for Pfizer series)COVID-19 VACCINE (4 - Booster for Pfizer series) [facility]: 55-83-8601BANUA-19 VACCINE (4 - Pfizer series)COVID-19 VACCINE (4 - Pfizer series)[facility]: 80-64-9255OFKWGJOZJJ ASSESSMENTDEPRESSION ASSESSMENTMartin Memorial Hospitaltart: 11-90-4619PABAQOYCE (FIT-DNA)COLOGUARD (FIT-DNA)[facility]: 63-10-1962Yspvlyzbwvu COLONOSCOPYMartin Memorial Hospitaltart: 40-40-6438GHTKDPAMID CANCER SCREENING COLORECTAL CANCER SCREENINGMartin Memorial Hospitaltart: 53-72-2439YO COLONOGRAPHYCT COLONOGRAPHYMartin Memorial Hospitaltart: 62-76-7977FDHWODTI SCREENDIABETES SCREEN [facility]: 93-97-2746Orsetxaa ScreeningDiabetes ScreeningMartin Memorial Hospitaltart: 99-33-7354DBALY OCCULT BLOODFECAL OCCULT BLOODCleveland Clinic Union Hospital Start: 00-60-5224Pfchsqwlm for malignant neoplasm of colonMartin Memorial Hospitaltart: 19-01-3771IRAKPMCUGWHJVPSWOZMTWNVCLGIhxdflikk ClinicStart: 44-17-7938Lznic panelLipid ScreeningMartin Memorial Hospitaltart: 43-52-7533BLKAE SCREENLIPID SCREEN [facility]: 32-87-2675Ziuxgtlfj B Vaccine (1 of 3 - 19+ 3-dose series)Hepatitis B Vaccine (1 of 3 - 19+ 3-dose series)[facility]: 16-95-4395Xuiphlgpi B Vaccines (1 of 3 - 19+ 3-dose series)Hepatitis B Vaccines (1 of 3 - 19+ 3-dose series)[facility] HealthcareStart: 46-59-7595Bppja microalbumin profileMartin Memorial Hospitaltart: 95-28-9054Oakktbn ScreeningAnxiety Screening [facility]: 86-25-5740Wpjwbmfsdp ScreeningDepression Screening [facility]: 96-70-0283ANYCIDIZO C SCREENINGHEPATITIS C SCREENING [facility]: 04-10-1855Gqovtqarx C screeningHepatitis C Screening [facility]: 07-76-3416JDD SCREENINGHIV SCREENINGCleveland Clinic Union Hospital Start: 07-85-7895CWT screeningHIV ScreeningMartin Memorial Hospitaltart: 05-17-1982 DTaP/Tdap/Td Vaccines (1 - Tdap)DTaP/Tdap/Td Vaccines (1 - Tdap)[facility] Start: 29-44-4087FIW Vaccines (1 of 1 - Standard series)MMR Vaccines (1 of 1 - Standard series)[facility] HospitalStart: 71-32-1819CXRPF-19 VACCINE (#1)COVID-19 VACCINE (#1)[facility]: 77-15-0949ZFSFQUUIF B (1 of 3 - 3-dose series)HEPATITIS B (1 of 3 - 3-dose series)[facility]: 1975 Screening for malignant neoplasm of colonTexas County Memorial Hospital End: 77-17-7002VQOGYPPMUUA DIAGNOSTICCOLONOSCOPY DIAGNOSTIC Endoscopy Routine Diarrhea, unspecified type 1 Occurrences starting 01/01/2022 until 01/01/2023 [facility] Work Phone: comment on above:1 Occurrences starting 01/01/2022 until 01/01/2023 End: 00-23-6759YNE DIAGNOSTICEGD DIAGNOSTIC Endoscopy Routine Esophageal dysphagia 1 Occurrences starting 01/01/2022 until [facility] Work Phone: comment on above:1 Occurrences starting 01/01/2022 until 01/01/2023MR Ankle - left WO contrastMR ankle left wo IV contrast Imaging Routine Achilles tendon tear, left, initial encounter Ordered:12/10/2024[facility] Work Phone: Comment on above:Ordered: 10/02/2025Patient Education [facility] Work Phone: Patient referralBrecksville [facility] Work Phone: US Heart TransthoracicKindred HealthcareUS Thyroid glandMiller Children's Hospital Immunizations Immunization DateImmunizationNotesCare EaqxyomsEvzxqcnk17-50-5921ilcbbepyy, seasonal, injectable, preservative freeBenjamin Ball DO Work Phone: [facility]10-15-2025influenza virus vaccine, unspecified formulationMarshjen Farrar [facility] 34-36-3740nypbtztis, seasonal, injectable, preservative freeDO Jack Ball Work Phone: [facility]10-14-2024influenza virus vaccine, unspecified formulationGregory Diehl DPM Work Phone: [facility] HospitalNiasisjxfp40-45-5630PSEGY-25 (PFIZER) 12Y and olderDO Jack Ball Work Phone: [facility]09-20-2023influenza, injectable, quadrivalent, preservative freeBenjamin Ball Other [facility]09-20-2023influenza virus vaccine, unspecified formulationSneha Ann NP Work Phone: [facility] HospitalSzqitffhlr44-01-5312ZEHOR-47 mRNA, Comirnaty (Pfizer)DO Jack Ball Work Phone: [facility]11-15-2021influenza virus vaccine, split virus (incl. purified surface antigen)Jack Ball Other [place] [employer] Other [id number] virus vaccine, unspecified formulationDO Jack Ball Work Phone: [facility]02-04-2021COVID-19 mRNA, Comirnaty (Pfizer)DO Jack Ball Work Phone: [facility]02-03-2021COVID-19 Vaccine Pfizer - Documentation Purposes OnlyBepurvi Ortega Other [facility]01-14-2021COVID-19 mRNA, Rosanneirchi (Pfizer)DO Jack Ortega Work Phone: [facility]01-14-2021COVID-19 Vaccine Moderna - Documentation Purposes OnlyJack Ortega Other [facility]03-08-1976 pneumococcal conjugate vaccine, 7 valentEmma LarsonDept. of Dermatology Payers DatePayer CategoryPayerPolicy [id number] Blue Shield [id number] 1.2.840.397942.1.13.159.2.7.3.36968[id number] 2.0.1.544791.3.579.[id number] 2.0.1.389958.3.579.2.05380-73-4175Fxjjljm3180833 2.840.1.264438.3.579.2.64118-65-9116Ffzvjfi7255761 2.16840.1.047371.3.579.2.75854-22-5504Ncgnpek1236127 2..840.1.401676.3.579.2.46538-54-4237Zueubji3302279 2.16.840.1.024152.3.579.2.16333-12-7554Xxnvkxg941160657 2.16.840.1.343035.3.579.2.71830-23-1898Ujujiuc828792657 2.16.840.1.119172.3.579.2.68474-19-8019Lhfryki541158871 2.16.840.1.821199.3.579.2.25921-24-3761Wphnzgf388968315 2.16.840.1.350533.3.579.2.02450-87-7795Mnigutl453005838 2..840.1.220500.3.579.2.43202-67-6013Nhbqlcp609886278 2.840.1.618734.3.579.2.84639-09-9339Ddvndjo921995292 2.840.1.116521.3.579.2.13502-28-4132Loaqrhr065993866 2..840.1.510023.3.579.2.38723-04-5008Iylabrs848537210 2..840.1.071552.3.579.2.82118-30-9248Idpaayb230187276 2.840.1.700308.3.579.2.58684-89-4031Xqhdsoc119481633 2..840.1.137039.3.579.2.14737-21-5548Foprcct558386306 2..840.1.210452.3.579.2.24862-20-6417Rmhgwyd966686193 2..840.1.007623.3.579.2.89557-67-0427Yrxugcq516814478 2.840.1.241669.3.579.2.61390-62-7638Zjcplcz744213976 2.16.840.1.356648.3.579.2.90082-74-4213Knqyzon677545371 2.16.840.1.765733.3.579.2.50307-61-9381Kprjvfc690584792 2.16.840.1.397281.3.579.2.62125-40-3665Dnrxahf301892241 2.16.840.1.347917.3.579.2.70293-08-2713Jwamcpj428802235 2.16.840.1.550222.3.579.2.62652-57-6968Nvzxnyr74935564 2.16.840.1.421808.3.579.2.647366-76-8676Psrbggz41002750 2..840.1.580038.3.579.2.569342-10-7733Ypolsls58782902 2..840.1.760946.3.579.2.379159-46-7290Czgksdo92936916 2..840.1.680214.3.579.2.854646-41-1031Draycgk76676033 2.16.840.1.180572.3.579.2.425941-05-6810Rmdmbol78978091 2.16.840.1.410886.3.579.2.980602-15-0677Axhjaqp03345686 2.16.840.1.959478.3.579.2.245728-49-6270Ioirofm39199886 2.16.840.1.039033.3.579.2.165559-78-6999Hyecltt37804085 2.16.840.1.956829.3.579.2.944798-00-9917Xcyukwv07814928 2.16.840.1.430105.3.579.2.537869-02-6519Vpyqjfv94718200 2.16.840.1.254388.3.579.2.192940-76-6838Uvuwvmv58025819 2.16.840.1.762065.3.579.2.006623-87-7044Rrzmydj10915638 2.16.840.1.471285.3.579.2.500158-05-5257Pawmzyx7166189 2..0.1.430943.3.579.2.420542-69-4458Bugzhxy2553991 2..0.1.727622.3.579.2.068462-38-3715Bcxpwdm0552960 2..840.1.332118.3.579.2.408233-33-6321Dyemdcr2734419 2.0.1.572491.3.579.2.440408-06-4989XoriEastern New Mexico Medical CenterJPY136M55062 2.0.1.846358.42BijzglrR1043038639 2.0.1.926233.84Beyrwkf369962682093 1v9dl11q-1l58-014y-a6h4-4v7y2t3749i8Saolsch41280731 2.0.1.194340.3.579.2.531 Social History DateTypeDetailFacilityStart: 03-13-2022 End: 80-80-3115Ssb Assigned At [facility] [employer] Other Start: 07-18-2021 End: 63-44-6191Tagfcfo smoking status NHISNever smoked tobacco (finding) [facility] 1975 End: 35-35-5409Iyd Assigned At [facility] Southtart: 01-01-2022 End: 44-75-4738Sglidph use and exposureSmokeless tobacco non-userMartin Memorial Hospitaltart: 01-01-2022 End: 60-21-3807Fgwctld intakeEx-drinker (finding)[facility]: 11-93-0260Fjl Assigned At BirthNot on fileMartin Memorial Hospitaltart: 43-56-7401Zazr. of Dermatology Start: 03-13-2022 End: 71-21-4723Kqqvvhq of Social functionMartin Memorial Hospitaltart: 09-05-2021 End: 98-55-9603Wflesgno Score (1-100), lower number is lower haye26GwchionswMartin Memorial Hospitaltart: 34-63-0862Volvad identityIdentifies as male gender (finding) [facility]: 79-82-7533Jynual orientationHeterosexual (finding) [facility]: 07-10-2023 End: 90-01-4724Ucmdezpyp beverage intakeCurrent drinker of alcohol (finding)[facility] HealthcareHow often to you have a drink containing alcohol?Monthly or lessNOMS HealthcareHow many standard drinks containing alcohol do you have on a typical day?1 or 2N[facility]S HealthcareHow often do you have 6 or more drinks on 1 occasion? NeverNOMS HealthcareStart: 47-15-5324Wsajjwn Commentcaffeine: 1-2 cups per day [facility] HealthcareStart: 70-15-4006Newlmbl CommentNoneNOMS HealthcareSexMale (finding)[facility] Medical Equipment Procedure CodeEquipment CodeEquipment Original TextEquipment IdentifierDates Start: 08-08-2022 Goals DatePatient GoalDesired Activity/State Functional Status DateAssessmentResultFacilityCleveland Clinic Union Hospital Clinical Notes 01-19-2021 to 01-18-2025 Note Date & ZwguKnzwLkxtynhm57-27-2014 History of Present illness Narrative* Gregory Diehl, MER - 01/18/2025 4:30 PM EST Patient: Donell Dumont : 1975 PCP: Jack Ortega, SUBJECTIVE Pt presents today for follow up [...] right advanced flatfoot deformity and uses a Ware brace Pt also has left PT tendonitis [...] Past Medical History: Diagnosis Date Anxiety Asthma ([facility]) Ataxia CTS (carpal tunnel syndrome) Diabetes mellitus ([facility]) Headache Hypertension Insomnia Melanoma (HCC) Migraine Sleep [...] Insecurity: No Food Insecurity (06/20/2022) Received from [facility] Hunger Screening Within the past 12 months [...] tendon into retrocalcaneal bursa with negative palpable [place] MRI: PAST MR ankle left wo IV contrast Narrative: [facility] [place] [address] [place] [address] MRI Report Signed Patient: Donell Dumont MR#: [id number] : 1975 Acct:[id number] Age/Sex: 49 / M ADM Date: 12/29/24 Loc: [facility] Room: Type: [facility] Attending Dr: Gregory Diehl DPM Copies to: Gregory Diehl DPM Ordering Provider: Gregory Diehl DPM Date of Service: 12/29/24 MR/MR ankle [...] Pereyra M.D. 12/29/2024 5:15 PM Dictation Location: [address] [address] Transcribed By: [facility] 12/29/24 2178 Dictated By: Maurice Pereyra II, MD 12/29/24 1706 Signed By: <Electronically signed by Maurice Pereyra II, MD in OV> 12/29/24 1715 ASSESSMENT 1. Other specified disorders of synovium, [...] Patient may continue with conservative treatments including zolz-zfu-fxxarya anti- inflammatories and other treatments suggested today. Patient may want to be s cheduled for surgical intervention in the near future. Gregory Diehl DPM documented in this encounterTexas County Memorial HospitalUfifieqfbq90-07-4066 History of Present illness Narrative* Gregory Diehl DPM - 01/04/2025 4:30 PM EDT Patient: Donell Dumont : 1975 PCP: Jack Ortega DO SUBJECTIVE Pt presents today for follow [...] in the past. Patient rates pain a 7 /10. He has severe pes planovalgus and has been wearing brace. with improvement. Patient presents today now with left posterior heel pain and believes he may have a tear with Achilles tendon and has been using nsaids / ice as well as walking boot with physical therapy with some improvement. Patient rates pain a 4/10. Presents today for MRI follow up. Allergies: Allergies Allergen Reactions Codeine Hives, Itching [...] Insecurity: No Food Insecurity (06/20/2022) Received from [facility] Hunger Screening Within the past 12 [...] Ankle ROM less than 10 degrees b/l. positive pain on palpation medial gutter and synovium the right ankle joint. positive pain on palpation along right posterior tibial tendon positive pain on palpation left Achilles tendon into retrocalcaneal bursa with negative palpable [place] MRI: MR ankle left wo IV contrast Narrative: [facility] [place] [address] [place] [address] MRI Report Signed Patient: Donell Dumont MR#: [id number] : 1975 Acct:[id number] Age/Sex: 49 / M ADM Date: 12/29/24 Loc: [facility] Room: Type: [facility] Attending Dr: Gregory Diehl DPM Copies to: Gregory Diehl DPM Ordering Provider: Gregory Diehl DPM Date of Service: 12/29/24 MR/MR ankle [...] Pereyra M.D. 12/29/2024 5:15 PM Dictation Location: [place] [address] Transcribed By: [facility] 12/29/241714 Dictated By: Maurice Pereyra II, MD 12/29/241705 Signed By: <Electronically signed by Maurice Pereyra II, MD in OV> 12/29/241714 Ultrasound DIAGNOSTIC US REPORT: Verbal order for ultrasound today The achilles tendon of the left foot/leg were scanned today with a 12 MHz linear probe in the transverse/sagital planes. Images were obtained. FINDINGS: US examination in the longitudinal and transverse images of the achilles tendon insertion to calcaneus demonstrates a small amount of hypo-echoic density anterior to achilles insertion point on calcaneus. IMPRESSION: US findings of left Retrocalcaneal bursitis ASSESSMENT 1. Other specified disorders of synovium, right ankle and foot 2. Achilles tendon tear, left, initial encounter 3. Left Achilles tendinitis 4. Posterior tibial tendonitis of right leg 5. Contracture of left ankle 6. Contracture of right ankle PLAN Continue with [...] care center to the rightankle and foot Reviewed ultrasound today Pt was given steroid injection to the left retrocalcaneal bursa under US guidance with visualization of injected fluid into area of concern per imaging. Injection consisted of a 2:1 mixture of xylocaine 2%plain and dexathesone 4mg for a total of 3ccs. Informed pt of risks and benefits of procedure including infection,damage or rupture to soft tissuestructures and steroid flare. This is the patients 1st injections Pt understood and consented. Gregory Diehl DPM documented in this encounterTexas County Memorial HospitalEjwburdcdi77-82-3792 Evaluation note* Diagnosis Onset Date Resolution Status Admit Date MARTHA (generalized anxiety disorder) acuteOct2024 8:27amOSA (obstructive sleep apnea)acuteOct2024 8:27amPrimary hypertensionacuteOct2024 8:27amScreening PSA (prostate specific antigen)acuteOct2024 8:27amThyroid noduleacute December 23, 2024 8:27amType 2 diabetes mellitus with hyperglycemiaacuteOct2024 8:27amWellness examinationacuteOct2024 8:27amMixed hyperlipidemiaacuteOct2024 8:13amPrimary hypertensionacuteOct2024 8:13am [facility] Work Phone: [phone]) 986-844709-11-2025 Instructions* Patient Instructions* Shyanne Rodríguez, RECTIFYING OPERATOR.TAVERN KEEPER - 11/19/2024 8:57 AM EDT -Start 1 capful of Miralax daily today -On Saturday drink one 10 ounce bottle of magnesium citrate with 2 tablets of Dulcolax as a mild cleanse. -Try to eat yogurt about 60 mins after taking the omeprazole in the morning. -Can add on 20mg Pepcid AC for any breakthrough reflux symptoms documented in this encounterCleveland Clinic Union Hospital09-11-2025 NoteHNO ID: [id number] Author: SHYANNE RODRÍGUEZ APRN.NIEVES Service: ? Author Type: Nurse Practitioner Type: Progress Notes Filed: 11/19/2024 09:18 Note Text: DEPARTMENT OF GASTROENTEROLOGY - FOLLOW UP REASON FOR VISIT Donell Dumont is a 49 year old male who is scheduled for follow up of IBS, GERD HISTORY OF PRESENT ILLNESS Donell Dumont is a 49 year old male who presents today for follow up of IBS, GERD Pertinent Workup to Date: 12/2023: GERD, IBS. 40mg omep. Constipation on Trulicity. Was to start colace, high fiber diet with extra water. Consider Miralax. Colon due 2027. Trulicity, Elavil 25mg Symptoms: He is not tolerating the high dose Trulicity well. Lots of bloating. He is only taking the colace. BMs about 3 times weekly. Urgency with diarrhea when he finally goes. Bloated. A little breakthrough heartburn on the 40mg omeprazole. Belching. Nausea, no vomiting. No NSAIDs. Has been on 25mg amitriptyline for several years. Rectal bleeding on occasion. Known hemorrhoids. Wt stable. Minimal pain. No past medical history on file. PAST SURGICAL HISTORY Procedure Laterality Date CHOLECYSTECTOMY COLONOSCOPY 2022 EGD DIAGNOSTIC 2022 HERNIA REPAIR HX Allergies: Codeine GI Upset, Hives, Intolerance, Itching, Rash Current Outpatient Medications Medication Sig Dispense Refill amitriptyline (ELAVIL) 25 mg tablet TAKE 1/2 TO 1 TABLET BY MOUTH EVERY DAY AT BEDTIME WELLBUTRIN SR 200 mg 12 hr tablet EMGALITY PEN 120 mg/mL pen Inject 120 mg subcutaneously once every month. ubrogepant (UBRELVY) 100 mg tablet Take 1 tablet by mouth. LANTUS SOLOSTAR U-100 INSULIN 100 unit/mL (3 mL) INJECT 50 UNITS SUBCUTANEOUSLY ONCE A DAY insulin lispro (HUMALOG KWIKPEN INSULIN SQ) TRULICITY 4.5 mg/0.5 mL pen injector INJECT 4.5 MG (0.5 ML) SUBCUTANEOUSLY ONCE EVERY WEEK FOR 90 DAYS omeprazole (PRILOSEC) 40 mg capsule Take 1 capsule by mouth once daily. 90 capsule 3 docusate sodium (COLACE) 100 mg capsule Take 1 capsule by mouth two times a day. 180 capsule 3 ALPRAZolam (XANAX) 0.5 mg tablet Take 0.5 mg by mouth. baclofen (LIORESAL) 20 mg tablet TAKE 1 TABLET BY MOUTH EVERYDAY AT BEDTIME escitalopram oxalate (LEXAPRO) 20 mg tablet Take 20 mg by mouth. rosuvastatin (CRESTOR) 20 mg tablet Take 20 mg by mouth. glucagon (GLUCAGEN) 1 mg/mL injection Inject 1 mg intravenously one time only for 1 dose. For MRI Enterography, Inject 1 mg intravenously, as directed. Slow push at the appropriate time during MRI Scan 1 Each 0 pregabalin (LYRICA) 50 mg capsule TAKE 1 CAPSULE (50 MG TOTAL) BY MOUTH IN THE MORNING AND 1 CAPSULE (50 MG TOTAL) BEFORE BEDTIME. rizatriptan (MAXALT) 5 mg tablet TAKE 1 TABLET BY MOUTH AT ONSET OF MIGRAINE MAY REPEAT 1 TAB IN 2HRS IF NEEDED acetaminophen (TYLENOL) 500 mg tablet Take 1,300 mg by mouth. benazepril (LOTENSIN) 10 mg tablet Take 10 mg by mouth once daily. benazepril/hydrochlorothiazide (LOTENSIN HCT ORAL) cetirizine (ZYRTEC) 10 mg tablet fremanezumab-vfrm (AJOVY AUTOINJECTOR) 225 mg/1.5 mL auto-injector No current facility-administered medications for this visit. SOCIAL HISTORY[1] FAMILY HISTORY Problem Relation Age of Onset Colon Cancer Father REVIEW OF SYSTEMS Cardiovascular: No chest pain Respiratory: Negative for cough, wheezing and shortness of breath Gastrointestinal : See above Psychiatric: No problems PHYSICAL EXAMINATION BP 125/82 Pulse 81 Wt 95.3 kg (210 lb) BMI 26.25 kg/m? General Appearance: Well appearing, alert, in no acute distress, gait steady. Eyes: Pupils equal, no scleral icterus Lungs: breath sounds clear to auscultation bilaterally Heart: regular rate and rhythm, no murmurs Abdomen: not distended, normal bowel sounds, soft and depressible, no guarding or rebound, Minimal TTP epigastric region Neuro: alert, oriented x 3, pleasant and in no acute distress Psych: pleasant affect, calm Assessment IMPRESSION Mr. Dumont is a 49 year old male who presents for follow up of IBS, GERD. He has been having worsening constipation with bloating and some breakthrough reflux since increasing to the max acosta of Trulicity for DM. Wt is stable. Failing 200mg docusate. PLAN -Start 1 capful of Miralax daily today -On Saturday drink one 10 ounce bottle of magnesium citrate with 2 tablets of Dulcolax as a mild cleanse. -Try to eat yogurt about 60 mins after taking the omeprazole in the morning. -Can add on 20mg Pepcid AC for any breakthrough reflux symptoms -If no better in 2 weeks will consider Linzess. -Colonoscopy by 2027, sooner if rectal bleeding persists or worsens (known hemorrhoids) Shyanne Rodríguez APRN.CNP 11/19/2024 8:31 AM [1] Social History Tobacco Use Smoking status: Never Smokeless tobacco: Never Vaping Use Vaping status: Never Used Substance Use Topics Alcohol use: Not Currently [facility] History of Present illness Narrative* Shyanne Rodríguez APRN.TAVERN KEEPER - 11/19/2024 8:31 AM EDT DEPARTMENT OF GASTROENTEROLOGY - FOLLOW UP REASON FOR VISIT Donell Dumont is a 49 year old male who is scheduled for follow up of IBS, GERD HISTORY OF PRESENT ILLNESS Donell Dumont is a 49 year old male who presents today for follow up of IBS, GERD Pertinent Workup to Date: 12/2023: GERD, IBS. 40mg omep. Constipation on Trulicity. Was to start colace, high fiber diet with extra water. Consider Miralax. Colon due 2027. Trulicity, Elavil 25mg Symptoms: He is not tolerating the high dose Trulicity well. Lots of bloating. He is only taking the colace. BMs about 3 times weekly. Urgency with diarrhea when he finally goes. Bloated. A little breakthroughheartburn on the 40mg omeprazole. Belching. Nausea, no vomiting. No NSAIDs. Has been on 25mg amitriptyline for several years. Rectal bleeding on occasion. Known hemorrhoids. Wt stable. Minimal pain. No past medical history on file. PAST SURGICAL HISTORY Procedure Laterality Date CHOLECYSTECTOMY COLONOSCOPY 2022 EGD DIAGNOSTIC 2022 HERNIA REPAIR HX Allergies: Codeine GI Upset, Hives, Intolerance, Itching, Rash Current Outpatient Medications Medication Sig Dispense Refill amitriptyline (ELAVIL) 25 mg tablet TAKE 1/2 TO 1 TABLET BY MOUTH EVERY DAY AT BEDTIME WELLBUTRIN SR 200 mg 12 hr tablet EMGALITY PEN 120 mg/mL pen Inject 120 mg subcutaneously once every month. ubrogepant (UBRELVY) 100 mg tablet Take 1 tablet by mouth. LANTUS SOLOSTAR U-100 INSULIN 100 unit/mL (3 mL) INJECT 50 UNITS SUBCUTANEOUSLY ONCE A DAY insulin lispro (HUMALOG KWIKPEN INSULIN SQ) TRULICITY 4.5 mg/0.5 mL pen injector INJECT 4.5 MG (0.5 ML) SUBCUTANEOUSLY ONCE EVERY WEEK FOR 90 DAYS omeprazole (PRILOSEC) 40 mg capsule Take 1 capsule by mouth once daily. 90 capsule 3 docusate sodium (COLACE) 100 mg capsule Take 1 capsule by mouth two times a day. 180 capsule 3 ALPRAZolam (XANAX) 0.5 mg tablet Take 0.5 mg by mouth. baclofen (LIORESAL) 20 mg tablet TAKE 1 TABLET BY MOUTH EVERYDAY AT BEDTIME escitalopram oxalate (LEXAPRO) 20 mg tablet Take 20 mg by mouth. rosuvastatin (CRESTOR) 20 mg tablet Take 20 mg by mouth. glucagon (GLUCAGEN) 1 mg/mL injection Inject 1 mg intravenously one time only for 1 dose. For MRI Enterography, Inject 1 mg intravenously, as directed. Slow push at the appropriate time during MRI Scan 1 Each 0 pregabalin (LYRICA) 50 mg capsule TAKE 1 CAPSULE (50 MG TOTAL) BY MOUTH IN THE MORNING AND 1 CAPSULE (50 MG TOTAL) BEFORE BEDTIME. rizatriptan (MAXALT) 5 mg tablet TAKE 1 TABLET BY MOUTH AT ONSET OF MIGRAINE MAY REPEAT 1 TAB IN 2HRS IF NEEDED acetaminophen (TYLENOL) 500 mg tablet Take 1,300 mg by mouth. benazepril (LOTENSIN) 10 mg tablet Take 10 mg by mouth once daily. benazepril/hydrochlorothiazide (LOTENSIN HCT ORAL) cetirizine (ZYRTEC) 10 mg tablet fremanezumab-vfrm (AJOVY AUTOINJECTOR) 225 mg/1.5 mL auto-injector No current facility-administered medications for this visit. SOCIAL HISTORY[1] FAMILY HISTORY Problem Relation Age of Onset Colon Cancer Father REVIEW OF SYSTEMS Cardiovascular: No chest pain Respiratory: Negative for cough, wheezing and shortness of breath Gastrointestinal : See above Psychiatric: No problems PHYSICAL EXAMINATION BP 125/82 Pulse 81 Wt 95.3 kg (210 lb) BMI 26.25 kg/m General Appearance: Well appearing, alert, in no acute distress, gait steady. Eyes: Pupils equal, no scleral icterus Lungs: breath sounds clear to auscultation bilaterally Heart: regular rate and rhythm, no murmurs Abdomen: not distended, normal bowel sounds, soft and depressible, no guarding or rebound, Minimal TTP epigastric region Neuro: alert, oriented x 3, pleasant and in no acute distress Psych: pleasant affect, calm Assessment IMPRESSION Mr. Dumont is a 49 year old male who presents for follow up of IBS, GERD. He has been having worsening constipation with bloating and some breakthrough reflux since increasing to the max acosta of [facility] for DM. Wt is stable. Failing 200mg docusate. PLAN -Start 1 capful of Miralax daily today -On Saturday drink one 10 ounce bottle of magnesium citrate with 2 tablets of Dulcolax as a mild cleanse. -Try to eat yogurt about 60 mins after taking the omeprazole in the morning. -Can add on 20mg Pepcid AC for any breakthrough reflux symptoms -If no better in 2 weeks will consider Linzess. -Colonoscopy by 2027, sooner if rectal bleeding persists or worsens (known hemorrhoids) Shyanne Rodríguez APRN.NIEVES 11/19/2024 8:31 AM [1] Social History Tobacco Use Smoking status: Never Smokeless tobacco: Never Vaping Use Vaping status: Never Used Substance Use Topics Alcohol use: Not Currently Drug use: Not Currently [facility] History of Present illness Narrative* Gregory Diehl, MER - 11/10/2024 2:00 PM EDT Patient: Donell Dumont : 1975 PCP: Jack Ortega DO SUBJECTIVE Pt presents today for follow up of capsulitis and synovitis to the right ankle Currently they rate their pain on a 1-10 scale a 2 States prior treatments of steroid injection and nsaids with Positive improvement in the past. States pain is aggrevated with WB. Pt has also been in CAM walker Pt also has left PT tendonitis and has been using an ankle brace and MEDROL pack with positive improvement in the past. Patient rates pain a 2 /10. He has severe pes planovalgus and has been wearing brace with improvement Patient presents today now with left posterior heel pain and believes he may have a tear with Achilles tendon and has been using nsaids / ice as well as walking boot with improvement. Patient rates pain a 3/10. Discussion of possible MRI in the past. Allergies: Allergies Allergen Reactions Codeine Hives, Itching [...] Insecurity: No Food Insecurity (06/20/2022) Received from [facility] Hunger Screening Within the past 12 [...] Ankle ROM less than 10 degrees b/l. minimal pain on palpation to positive palpation medial gutter and synovium the right ankle joint. minimal pain on palpation along right posterior tibial tendon diminished pain on palpation left Achilles tendon with negative palpable [place] ASSESSMENT 1. Left Achilles tendinitis 2. Contracture of left ankle 3. Other specified disorders of synovium, right ankle and foot 4. Posterior tibial tendonitis of right leg PLAN Patient may continue with ankle brace. Recommended to apply ice to affected areas for 20 minutes, twice daily. Ice should not be applied directly to skin. Continue with CAM walker Physical therapy ordered today Gregory Diehl DPM documented in this encounterDaniel Ville [id number] History of Present illness Narrative* Gregory Diehl, DPM - 10/23/2024 10:40 AM EDT Patient: Donell Dumont : 1975 PCP: Jack Ortega, SUBJECTIVE Pt presents today for follow up of capsulitis and synovitis to the right ankle Currently they rate their pain on a 1-10 scale a 3 States prior treatments of steroid injection and nsaids with Positive improvement in the past. States pain is aggrevated with WB. Patient has recently taken a Medrol pack Pt also has PT tendonitis and has been using an ankle brace and MEDROL pack with positive improvement. Patient rates pain a 2 /10. He has severe pes planovalgus and has been wearing brace with positive improvement Patient presents today now with left posterior heel pain and believes he may have a tear with Achilles tendon and wishes use ice as well as walking boot with positive improvement. Patient rates pain a 1/10 while in the boot and a 3/10 while out of the boot Allergies: Allergies Allergen Reactions Codeine Hives, Itching [...] Insecurity: No Food Insecurity (06/20/2022) Received from [facility] Hunger Screening Within the past 12 months [...] skin turgor noted. Negative openings in skin. 15 minutes to right ankle VASC: Palpable pedal pulsed b/l with warm to cool tibia to toes b/l NEURO: Gross sensation intact digits 1-10 and b/l feet ORTHO: +5/5 DF/PF/IN/EV right, +5/5 DF/PF/IN/EV left. 20 degrees inversion and 10 degrees eversion STJ b/l. Ankle ROM less than 10 degrees b/l. diminished pain on palpation to positive palpation medial gutter and synovium the right ankle joint. diminished pain on palpation along right posterior tibial tendon diminished pain on palpation left Achilles tendon with negative palpable Nome ASSESSMENT 1. Other specified disorders of synovium, right ankle and foot 2. Posterior tibial tendonitis of right leg 3. Left Achilles tendinitis 4. Contracture of left ankle PLAN Patient may continue with ankle brace. Recommended to apply ice to affected areas for 20 minutes, twice daily. Ice should not be applied directly to skin. Continue with cam walker for the next 2 weeks Discussed possible MRI if no improvement for possible partial tear Gregory Diehl DPM documented in this encounterTexas County Memorial [id number] History of Present illness Narrative* Gregoryellen Diehl, DPM - 10/16/2024 9:10 AM EDT Patient: Donell Dumont : 1975 PCP: Jack Ortega, DO SUBJECTIVE Pt presents today for follow up of capsulitis and synovitis to the right ankle Currently they rate their pain on a 1-10 scale a 2 States prior treatments of steroid injection and nsaids with Positive improvement in the past. States pain is aggrevated with WB. Patient has recently taken a Medrol pack Pt also has PT tendonitis and has been using an ankle brace and MEDROL pack with positive improvement. Patient rates pain a 2 /10. He has severe pes planovalgus and has been wearing brace with positive improvement Patient presents today now with left posterior heel pain and believes he may have a tear with Achilles tendon. Denies any trauma denies any popping or snapping sensation but did feel a sharp stabbingpain when stepping down a step a few days ago and has been taking Tylenol and rates pain up to 7/10 Allergies: Allergies Allergen Reactions Codeine Hives, Itching [...] Insecurity: No Food Insecurity (06/20/2022) Received from [facility] Hunger Screening Within the past 12 months [...] skin turgor noted. Negative openings in skin. 15 minutes to right ankle VASC: Palpable pedal pulsed b/l with warm to cool tibia to toes b/l NEURO: Gross sensation intact digits 1-10 and b/l feet ORTHO: +5/5 DF/PF/IN/EV right, +5/5 DF/PF/IN/EV left. 20 degrees inversion and 10 degrees eversion STJ b/l. Ankle ROM less than 10 degrees b/l. minimalpain on palpation to positive palpation medial gutter and synovium the right ankle joint. Minimal pain on palpation along right posterior tibial tendon Positive pain on palpation left Achilles tendon with negative palpable Nome ASSESSMENT 1. Other specified disorders of synovium, right ankle and foot 2. Posterior tibial tendonitis of right leg 3. Contracture of left ankle 4. Left Achilles tendinitis PLAN Patient may continue with ankle brace. Pt dispensed pneumatic CAM walker ([id number]) today to maintain 90 degree foot to ankle position. Pt informed to only remove walker when at rest or bathing. ABN signed and in chart for device if warranted. The boot was assembled and adjusted liner and straps and pneumatically inflated for proper customfitting by Gregory Diehl DPM and staff. A verbal order was given for dispensing of device. The patient is ambulatory and may benefit functionally from this device. It may be used for the following conditions as noted per medical diagnosis. Continue with steroids Recommended to apply ice to affected areas for 20 minutes, twice daily. Ice should not be applied directly to skin. Discussed this no improvement 1 week may consider possible MRI Gregory Diehl DPM documented in this encounterTexas County Memorial [id number] Evaluation note* Diagnosis Onset Date Resolution Status Admit Date Type 2 diabetes mellitus with hyperglyce richi acuteJuly 2024 8:46amContact dermatitisnoneactiveJuly 2024 8:46amGAD (generalized anxiety disorder)acuteOctober 2024 8:27amOSA (obstructive sleep apnea)acuteOctober 2024 8:27amPrimary hypertensionacuteOctober 2024 8:27amScreening PSA (prostate specific antigen)acuteOctober 2024 8:27amThyroid noduleacuteOctober 2024 8:27amType 2 diabetes mellitus with hyperglycemiaacuteOctober 2024 8:27amWellness examinationacuteOctober 2024 8:27am [facility] Work Phone: 1(551) 830-760107-22-2025 Evaluation note* Diagnosis Onset Date Resolution Status Admit Date DIANA (obstructive sleep apnea) acuteJuly 2024 8:16amChronic low back pain without sciaticachronicJuly 2024 8:16amChronic migraine with aura without status migrainosus, not intractablechronicJuly 2024 8:16amDDD (degenerative disc disease), cervicalchronicJuly 2024 8:16amType 2 diabetes mellitus with hyperglycemia acuteJuly 2024 8:46amContact dermatitisnoneactiveJuly 2024 8:46amGAD (generalized anxiety disorder)acuteOctober 2024 8:27amOSA (obstructive sleep apnea)acuteOctober 2024 8:27amPrimary hypertensionacuteOctober 2024 8:27amScreening PSA (prostate specific antigen)acuteOctober 2024 8:27amThyroid noduleacuteOctober 2024 8:27amType 2 diabetes mellitus with hyperglycemiaacuteOctober 2024 8:27amWellness examinationacuteOctober 2024 8:27am [facility] Work Phone: 1(402) 835-742106-13-2025 Evaluation note* Diagnosis Onset Date Resolution Status Admit Date MARTHA (generalized anxiety disorder) acuteJune 2024 8:26amOSA (obstructive sleep apnea)acuteJune 2024 8:26amPrimary hypertensionacuteJune 2024 8:26amThyroid noduleacuteJune 2024 8:26amType 2 diabetes mellitus with hyperglycemiaacuteJune 2024 8:26amPharyngitisacuteJuly 2024 2:57pm [facility] Work Phone: 1(215) 179-806806-13-2025 Evaluation note* Diagnosis Onset Date Resolution Status Admit Date MARTHA (generalized anxiety disorder) acuteJune 2024 8:26amOSA (obstructive sleep apnea)acuteJune 2024 8:26amPrimary hypertensionacuteJune 2024 8:26amThyroid noduleacuteJune 2024 8:26amType 2 diabetes mellitus with hyperglycemiaacuteJune 2024 8:26amPharyngitisacuteJuly 2024 2:57pmOSA (obstructive sleep apnea)acute Alba 2024 8:16amChronic low back pain without sciaticachronicJuly 2024 8:16amChronic migraine with aura without status migrainosus, not intractablechronicJuly 2024 8:16amDDD (degenerative disc disease), cervicalchronicJuly 2024 8:16am [facility] Work Phone: 1(114) 798-261304-24-2025 History of Present illness Narrative* Gregory Diehl, MER - 07/02/2024 3:00 PM EDT Patient: Donell Dumont : 1975 PCP: Jack Ortega MD SUBJECTIVE Pt presents today for follow up of capsulitis and synovitis to the right ankle Currently they rate their pain on a 1-10 scale a 7 States prior treatments of steroid injection and nsaids with Positive improvement in the past. States pain is aggrevated with WB. Pt also has PT tendonitis and has been using an ankle brace and MEDROL pack with positive improvement. Patient rates pain a 7/10. He has severe pes planovalgus and may benefit from bebeto brace in the future. Allergies: Allergies Allergen Reactions Codeine Hives, Itching and Rash Past Medical History: Past Medical History: Diagnosis Date Anxiety Asthma (CMS/HCC) Ataxia CTS (carpal tunnel syndrome) Diabetes mellitus (CMS/HCC) Headache Hypertension (CMS/HCC) Insomnia Melanoma (CMS/HCC) Migraine (CMS/HCC) Sleep apnea Medications: Current Outpatient Medications: ALPRAZolam [...] Insecurity: No Food Insecurity (06/20/2022) Received from [facility] Hunger Screening Within the past 12 months [...] skin turgor noted. Negative openings in skin. 15 minutes to right ankle VASC: Palpable pedal pulsed b/l with warm to cool tibia to toes b/l NEURO: Gross sensation intact digits 1-10 and b/l feet ORTHO: +5/5 DF/PF/IN/EV right, +5/5 DF/PF/IN/EV left. 20 degrees inversion and 10 degrees eversion STJ b/l. Ankle ROM less than 10 degrees b/l. Positive pain on palpation to positive palpation medial gutter and synovium the right ankle joint. positive pain on palpation along right posterior tibial tendon ASSESSMENT 1. Other specified disorders of synovium, right ankle and foot 2. Posterior tibial tendonitis of right leg 3. Contracture of right ankle PLAN Patient may continue with ankle brace. Prescription today for Medrol pack Patient is to receive a Ware style brace AFO to the right foot and ankle. Patient is to apply toankle and foot and wear daily to increase activities of daily living including walking and work related activities while weight-bearing. Patient is to have AFO for life time and may need further braces in future every 5 years. Prescription for device given to patient today. Gregory Diehl DPM documented in this encounterTexas County Memorial [id number] History of Present illness Narrative* Gregory Diehl DPM - 05/14/2024 8:50 AM EST Patient: Donell Ordonezp : 1975 PCP: Jack Ortega MD SUBJECTIVE This is a 48 y.o. male that presents today for a chief complaint of ankle pain. Patient rates pain up to a 10 out 10 at times particularly prolonged standing weight-bearing as history of severe pes planovalgus foot type. States he has tried different shoes and anti-inflammatories with negative improvement. Allergies: Allergies Allergen Reactions Codeine Hives, Itching and Rash Past Medical History: Past Medical History: Diagnosis Date Anxiety Asthma (CMS/HCC) Ataxia CTS (carpal tunnel syndrome) Diabetes mellitus (CMS/HCC) Headache Hypertension (CMS/HCC) Insomnia Melanoma (CMS/HCC) Migraine (CMS/HCC) Sleep apnea Medications: Current Outpatient Medications: ALPRAZolam [...] hr tablet, Every morning, Disp: , Rfl: metoprolol succinate XL (Toprol-XL) 25 MG 24 [...] Insecurity: No Food Insecurity (06/20/2022) Received from [facility] [employer] [facility], [facility] Hunger Screening Within the past 12 months [...] skin turgor noted. Negative openings in skin. 15 minutes to right ankle VASC: Palpable pedal pulsed b/l with warm to cool tibia to toes b/l NEURO: Gross sensation intact digits 1-10 and b/l feet ORTHO: +5/5 DF/PF/IN/EV right, +5/5 DF/PF/IN/EV left. 20 degrees inversion and 10 degrees eversion STJ b/l. Ankle ROM less than 10 degrees b/l. Positive pain on palpation to positive palpation medial gutter and synovium the right ankle joint. Positive palpation along right posterior tibial tendon XRAY: US: DIAGNOSTIC US REPORT: Verbal order for ultrasound today The right ankle was scanned today with a 12 MHz linear probe in the transverse/sagital planes. Images were obtained. FINDINGS: US examination in the longitudinal and transverse images of the ankle joint demonstrates a small amount of hypo-echoic density and signal of the ankle joint indicative of synovitis and capsulitis. IMPRESSION: US findings of capsulitis/synovitis of ankle. ASSESSMENT 1. Other specified disorders of synovium, right ankle and foot 2. Posterior tibial tendonitis of right leg PLAN Patient dispensed soft ankle brace (L1902) prefabricated multiligamentous AFO today.to maintain 90 degree foot to ankle position. ABN signed and in chart for device. The boot was assembled and adjusted for proper fitting by Gregory Diehl DPM and staff. A verbal order was given for dispensing of device. The patient is ambulatory and may benefit functionally from this device. It may be used for the following conditions as noted per medical diagnosis in the EMR Patient to continue with oral anti - inflammatories as needed for pain and recommended OTC medications such as tylenol or Ibuprofen Discussed possible treatments including Kee style brace in the future Reviewed ultrasound today with patient Pt was given steroid injection to the right ankle joint capsule and synovium under US guidance withvisualization of injected fluid into area of concern per imaging. Injection consisted of a 2:1 mixture of xylocaine 2%plain and kenalog 10 for a total of 3ccs. Informed pt of risks and benefits of procedure including infection,damage or rupture to soft tissuestructures and steroid flare. Pt understood and consented. This is the patients 1st injection Gregory Diehl DPM * Gregory Diehl DPM - 05/14/2024 8:50 AM EST Patient: Donell Dumont : 1975 PCP: Jack Ortega MD SUBJECTIVE Pt presents today for follow up of capsulitis and synovitis to the right ankle Currently they rate their pain on a 1-10 scale a 2 States prior treatments of steroid injection and nsaids with Positive improvement States pain is aggrevated with WB. Pt also has PT tendonitis and has been using an ankle brace with positive improvement improvement. Patient rates pain a 2/10. He has severe pes planovalgus and may benefit from bebeto brace in the future. Allergies: Allergies Allergen Reactions Codeine Hives, Itching and Rash Past Medical History: Past Medical History: Diagnosis Date Anxiety Asthma (CMS/HCC) Ataxia CTS (carpal tunnel syndrome) Diabetes mellitus (CMS/HCC) Headache Hypertension (CMS/HCC) Insomnia Melanoma (CMS/HCC) Migraine (CMS/HCC) Sleep apnea Medications: Current Outpatient Medications: ALPRAZolam [...] hr tablet, Every morning, Disp: , Rfl: metoprolol succinate XL (Toprol-XL) 25 MG 24 [...] Insecurity: No Food Insecurity (06/20/2022) [facility] [employer] Within the past 12 months [...] skin turgor noted. Negative openings in skin. 15 minutes to right ankle VASC: Palpable pedal pulsed b/l with warm to cool tibia to toes b/l NEURO: Gross sensation intact digits 1-10 and b/l feet ORTHO: +5/5 DF/PF/IN/EV right, +5/5 DF/PF/IN/EV left. 20 degrees inversion and 10 degrees eversion STJ b/l. Ankle ROM less than 10 degrees b/l. diminished pain on palpation to positive palpation medial gutter and synovium the right ankle joint. Diminished pain on palpation along right posterior tibial tendon ASSESSMENT 1. Other specified disorders of synovium, right ankle and foot 2. Posterior tibial tendonitis of right leg PLAN Patient may continue with ankle brace. Patient to continue with oral anti - inflammatories as needed for pain and recommended OTC medications such as tylenol or Ibuprofen Discussed possible treatments including Ware style brace in the future Patient be placed on Medrol pack Gregory Diehl DPM documented in this encounterTexas County Memorial [id number] History of Present illness Narrative* Gregory Diehl DPM - 04/30/2024 8:40 AM EST Patient: Donell Dumont : 1975 PCP: Jack Ortega MD SUBJECTIVE This is a 48 y.o. male that presents today for a chief complaint of ankle pain. Patient rates pain up to a 10 out 10 at times particularly prolonged standing weight-bearing as history of severe pes planovalgus foot type. States he has tried different shoes and anti-inflammatories with negative improvement. Allergies: Allergies Allergen Reactions Codeine Hives, Itching and Rash Past Medical History: Past Medical History: Diagnosis Date Anxiety Asthma (CMS/[facility]) Ataxia CTS (carpal tunnel syndrome) Diabetes mellitus (CMS/HCC) Headache Hypertension (CMS/HCC) Insomnia Melanoma (CMS/HCC) Migraine (CMS/[facility]) Sleep apnea Medications: Current Outpatient Medications: ALPRAZolam [...] hr tablet, Every morning, Disp: , Rfl: metoprolol succinate XL (Toprol-XL) 25 MG 24 [...] Insecurity: No Food Insecurity (06/20/2022) [facility] [employer] Within the past 12 months [...] skin turgor noted. Negative openings in skin. 15 minutes to right ankle VASC: Palpable pedal pulsed b/l with warm to cool tibia to toes b/l NEURO: Gross sensation intact digits 1-10 and b/l feet ORTHO: +5/5 DF/PF/IN/EV right, +5/5 DF/PF/IN/EV left. 20 degrees inversion and 10 degrees eversion STJ b/l. Ankle ROM less than 10 degrees b/l. Positive pain on palpation to positive palpation medial gutter and synovium the right ankle joint. Positive palpation along right posterior tibial tendon XRAY: US: DIAGNOSTIC US REPORT: Verbal order for ultrasound today The right ankle was scanned today with a 12 MHz linear probe in the transverse/sagital planes. Images were obtained. FINDINGS: US examination in the longitudinal and transverse images of the ankle joint demonstrates a small amount of hypo-echoic density and signal of the ankle joint indicative of synovitis and capsulitis. IMPRESSION: US findings of capsulitis/synovitis of ankle. ASSESSMENT 1. Posterior tibial tendonitis of right leg 2. Other specified disorders of synovium, right ankle and foot 3. Contracture of right ankle PLAN Patient dispensed soft ankle brace (L1902) prefabricated multiligamentous AFO today.to maintain 90 degree foot to ankle position. ABN signed and in chart for device. The boot was assembled and adjusted for proper fitting by Gregory Diehl DPShawn and staff. A verbal order was given for dispensing of device. The patient is ambulatory and may benefit functionally from this device. It may be used for the following conditions as noted per medical diagnosis in the EMR Patient to continue with oral anti - inflammatories as needed for pain and recommended OTC medications such as tylenol or Ibuprofen Discussed possible treatments including Ware style brace in the future Reviewed ultrasound today with patient Pt was given steroid injection to the right ankle joint capsule and synovium under US guidance withvisualization of injected fluid into area of concern per imaging. Injection consisted of a 2:1 mixture of xylocaine 2%plain and kenalog 10 for a total of 3ccs. Informed pt of risks and benefits of procedure including infection,damage or rupture to soft tissuestructures and steroid flare. Pt understood and consented. This is the patients 1st injection Gregory Diehl DPM documented in this encounterTexas County Memorial HospitalMmjvoldcwb90-66-1797 History of Present illness Narrative* Leslye Cline NP - 04/06/2024 8:20 AM EST Images from the original note were not included. Chief Complaint Patient presents with Migraine Neck Pain Subjective Donell Dumont is a 48 y.o. male. History of Present Illness The patient presents today for a follow-up appointment. He was most recently evaluated in our office on 11/26/2023. He is taking Emgality once per month and tolerates the medication well. He has had 2-3 migraines since the prior neurology appointment in November 2023. These start in the left occipital region and can radiate forward toward the left eye. They are sometimes preceded by visual aura.They are accompanied by nausea and increased sensitivity to light and sounds. They are not accompanied by vomiting. They last 1-2 days on average. At the prior appointment, Ubrelvy was prescribed. The patient states he is taking Ubrelvy as needed, and it will reduce his migraine symptoms to a tolerable level within 20 minutes of use. He denies any apparent adverse effects. He states he has never needed to take a 2nd dose within 24 hours. The patient reports chronic pain in the posterior neck and low back. He had lumbar spine surgery inS2022. He then had cervical spine surgery (C5-C7 fusion) in November 2023. He states he has recovered well and had a, huge improvement, in symptoms since the surgery. He states the sensation has returned to his hands, his neck pain has reduced, and he is no longer dropping objects. The patient's neck pain is constant but tolerable. It can radiate to the left shoulder intermittently. He denies weakness, numbness, or paresthesias is any extremities. He denies saddle anesthesia, bowel or bladder dysfunction, coordination difficulty, or falls. He states he had a repeat EMG completed via his neurosurgery team last year, and this did not identify carpal tunnel syndrome; only cervical radiculopathy. He denies any further new concerns. Review of Systems Constitutional: Negative for appetite change, chills, fatigue, fever and unexpected weight change. HENT: Negative for trouble swallowing and voice change. Eyes: Negative for visual change, double vision or loss of vision Respiratory: Negative for cough, shortness of breath and wheezing. Gastrointestinal: Negative for abdominal pain, blood in stool and vomiting. Musculoskeletal: Positive for arthralgias, back pain (low back) and neck pain. Negative for gait problem and myalgias. Neurological: Positive for headaches (accompanied by nausea, photophobia, and phonophobia). Negative for dizziness, tremors, seizures, syncope, facial asymmetry, speech difficulty, weakness, light-headedness and numbness. Psychiatric/Behavioral: Negative for confusion, hallucinations and suicidal ideas. The patient is not nervous/anxious. Home Medication List ALPRAZolam 0.5 MG tablet; Commonly known as: Xanax amitriptyline 25 MG tablet; Commonly known as: Elavil; TAKE 1/2 TO 1 TABLET BY MOUTH EVERY DAY AT BEDTIME baclofen 20 MG tablet; Commonly known as: Lioresal benazepril-hydroCHLOROthiazide 20-25 MG tablet; Commonly known as: Lotensin HCT Emgality 120 MG/ML auto-injector; Generic drug: galcanezumab; INJECT 1 SYRINGE UNDER THE SKIN EVERY30 DAYS escitalopram 20 MG tablet; Commonly known as: Lexapro HumaLOG MIX 50/50 KWIKPEN (50-50) 100 UNIT/ML injection; Generic drug: insulin lispro protamine-insulin lispro omeprazole [address] capsule; Commonly known as: PriLOSEC rosuvastatin 20 MG tablet; Commonly known as: Crestor sildenafil 100 MG tablet; Commonly known as: Viagra TRULICITY SC 4.5 MG/0.5 ML SC SOAJ Ubrelvy 100 MG tablet; Generic drug: Ubrogepant; Take 1 tablet by mouth if needed (May repeat in 2 hours. Max of 2 tablets in 24 hours.) Past Medical History: Diagnosis Date Anxiety Asthma (CMS/HCC) Ataxia CTS (carpal tunnel syndrome) Diabetes mellitus (CMS/HCC) Headache Hypertension (CMS/HCC) Insomnia Melanoma (CMS/HCC) Migraine (CMS/HCC) Sleep apnea Past Surgical History: Procedure Laterality Date ANTERIOR CERVICAL DISCECTOMY W/ FUSION 01/23/24 CARPAL TUNNEL RELEASE LUMBAR FUSION 12/07/22 LUMBAR LAMINECTOMY MICRODISCECTOMY LUMBAR OTHER SURGICAL HISTORY interventional pain procedures OTHER SURGICAL HISTORY anesthesia problems OTHER SURGICAL HISTORY surgical complications SPINE SURGERY 2022 Family History Problem Relation Name Age of Onset Diabetes Mother Lise Hyperlipidemia Mother Lise Hypertension Mother Lise Liver disease Mother Lise Migraines Mother Lise Depression Mother Lise Cancer Father Graham Coronary artery disease Father Graham Diabetes Father Graham Neuropathy Father Graham Restless legs syndrome Father Graham Allergies Other Other (hearing deficiency) Other Osteoporosis Other Peripheral vascular disease Other Parkinsonism Maternal Grandfather Ab Stroke Maternal Grandfather Ab Alzheimer's disease Maternal Grandmother Eveline Dementia Maternal Grandmother Eveline Depression Maternal Grandmother Eveline Depression Paternal Grandmother Theresa ADD / ADHD Sister Nancy Anxiety disorder Sister Nancy Depression Sister Nancy Social History Tobacco Use Smoking status: Never Smokeless tobacco: Never Tobacco comments: None Substance Use Topics Alcohol use: Not Currently Comment: caffeine: 1-2 cups per day Allergies: Codeine Vitals: 04/06/24 0816 BP: 134/78 Pulse: 97 SpO2: 97% Body mass index is 27.22 kg/m . weight: 212 lb Neurologic exam: Mental status and general appearance: Awake and alert with unlabored respirations. Oriented to person, place, and time. Recent and remotememory are intact. Speech is clear and fluent without aphasia. Speech is non-dysarthric. Attention and concentration are normal. Fund of knowledge is appropriate for level of education. Pleasant. Cranial nerves: CN II: Visual acuity is normal. Visual ray full to confrontation. CN III, IV, : Pupils are equal, round, and reactive to light. Extraocular movements intact. No ptosis present. CN V: Facial sensation is normal. CN VII: Full and symmetric facial movement. CN VIII: Hearing is normal to finger rub bilaterally. CN IX and X: Palate elevates symmetrically. CN XI: Shoulder shrug is normal bilaterally. CN XII: Tongue is midline without atrophy or fasciculation. Motor: RUE strength deltoid , biceps , triceps , wrist extensors , wrist flexor , and fisher clam strength 5/5. LUE strength deltoid , biceps , triceps , wrist extensors , wrist flexor , and fisher clam strength 5/5. RLE strength iliopsoas, quadriceps, tibialis anterior, and plantar flexion strength 5/5. LLE strength iliopsoas, quadriceps, tibialis anterior, and plantar flexion strength 5/5. Tone and bulk are normal. Sensory: Sensation is intact to light touch throughout all four extremities. Reflexes: RUE biceps reflex 1+ , brachioradialis reflex 1+. LUE biceps reflex 2+ , brachioradialis reflex 2+. RLE knee reflex 1+. LLE knee reflex 1+. Mims's sign negative. Coordination: Etuqkq-ho-xuqu testing normal. Rapid alternating movements are normal. Gait: Normal. Steady. Review and summary of old records: Dr. Luther consultation note from 12/29/2021 identified no radiculopathy with further review of MRI and no surgical interventional need. Recommendation for pain management. MRI lumbar spine at [facility] [place] on 10/27/21: L5-S1: There is a circumferential disc bulge with mild facet degenerative change. There is mild spinal canal narrowing. There is endplate osteophyte formation. There is moderate left and severe right neural foraminal narrowing with mass effect on exiting L5 nerve roots, right greater than left. At L4-L5: There is circumferential disc bulge with facet hypertrophy. There is mild spinal canal stenosis with mild left and moderate right neural foraminal narrowing. At T12-L1: There is a left central disc protrusion. There is mild spinal canal stenosis without significant neural foraminal narrowing. MRI brain at [facility] [place] on 10/02/21: No acute intracranial pathology or abnormal postcontrast enhancement. EMG of the bilateral upper extremities at [facility] on 11/03/20: Median neuropathy on the left consistent with moderate carpal tunnel. A remote C8 motor radiculopathy on the left which is mild in degree electrically. MRI of the cervical spine without contrast on 09/27/20: Multilevel moderate to marked neural foraminal narrowing related to degenerative disc disease and facet arthropathy. Multilevel mild to moderatecanal stenosis secondary to degenerative disc disease. Assessment/Plan Diagnoses and all orders for this visit: Chronic migraine with aura without status migrainosus, not intractable (CMS/HCC) It is my impression that the patient has chronic migraine. These are sometimes preceded by visual aura. The patient has tried and failed Nurtec (ineffective), sumatriptan, rizatriptan (stopped due tocardiac concerns), verapamil, and Ajovy for management previously. He believes his migraines are very well controlled on Emgality recently. He reports having 0-1 breakthrough migraines per month and s tates Ubrelvy will reduce his symptoms to a tolerable level. MRI of the brain on 10/02/2021 did notidentify a secondary headache cause. PLAN: - Continue Emgality 120 mg subcutaneous once every 30 days for migraine prevention - Continue Ubrelvy 100 mg by mouth as needed for migraine . Proper use reviewed. Take no more than 2 doses in 24 hours - AVOID TRIPTANS due to history of cardiac concerns - Ensure adequate sleep, adequate hydration, and regular physical activity as tolerated - Avoidance of migraine triggers DIANA (obstructive sleep apnea) The patient has a history of DIANA. He did not tolerate CPAP for management. PLAN: - I recommended close follow up with Dr. Kumari's team to discuss alternative treatment options forOSA if CPAP was not tolerated. The patient verbalizes understanding - I have educated the patient on potential health risks associated with untreated DIANA DDD (degenerative disc disease), cervical The patient has DDD of the cervical spine as identified on MRI from 09/27/2020. He is status post C5 through C7 fusion in November 2023 and reports significant improvement in symptoms since that time. The patient reports tolerable neck pain recently. He denies weakness or sensory disturbance, and no pathologic hyperreflexia or other significant signs/symptoms of cervical myelopathy are present. PLAN: - I advised the patient to follow up closely with neurosurgery for ongoing evaluation and management - Follow up with pain management as needed Chronic low back pain, unspecified back pain laterality, unspecified whether sciatica present The patient also reports chronic low back pain. This is tolerable and does not radiate to the lowerextremities. He denies symptoms of neurogenic claudication. He is status post lumbar spine surgery in November 2022 and reports improvement in his symptoms postoperatively. PLAN: - Follow up with neurosurgery per their recommendations - Follow up with pain management as needed Carpal tunnel syndrome (CTS), left EMG in October 2020 demonstrated findings consistent with moderate CTS on the left. The patient denies any symptoms clinically consistent CTS and states a more recent EMG via his neurosurgery office actually did not identify this. No pain, numbness, paresthesias, or weakness are reported in the median nerve distribution. PLAN: - Monitor clinically Malignant melanoma of left ear (CMS/HCC) Important clinical diagnosis. MRI of the brain on 10/02/2021 did not mention evidence of intracranial tumor or metastases. PLAN: - Follow up with outside provider for management Red flag symptoms of spinal cord compression/myelopathy were discussed with the patient. These include sensory loss, numbness, paresthesias, weakness, gait disturbance, coordination difficulty, bowel or bladder dysfunction, and urinary urgency/frequency. The patient was advised to notify his neurosurgeon right away if he develops any new or worsening symptoms of this in the future. He verbalizes understanding. Diagnosis and treatment options discussed in detail. All questions answered. The patient verbalizesunderstanding and is agreeable to the plan. Discussion in layman's terms. Follow up in the office within 6 months; sooner if needed for new or worsening symptoms. Leslye Cline NP [facility] documented in this encounterTexas County Memorial [id number] Telephone encounter Note* Telephone Encounter - Jenna Nicholas - 03/31/2024 9:00 AM EST Patient is scheduled 04/06 in [place] [facility] [id number] Miscellaneous Notes* Telephone Encounter - Jenna Nicholas - 03/31/2024 9:00 AM EST Patient is scheduled 04/06 in [place] with [facility] * Telephone Encounter - Gregory Hernandez MA - 03/31/2024 8:28 AM EST LMTCB x 2 * Telephone Encounter - Jaz Rocha - 03/30/2024 10:04 AM EST LMTCB x1 * Telephone Encounter - Helen Castellano MA - 03/30/2024 9:03 AM EST Please call and try to reschedule patient's follow up, missed in January. Emgality refill sent. documented in this encounterTexas County Memorial HospitalUkftxxsrbj36-10-6406 Telephone encounter Note* Telephone Encounter - Gregory Hernandez MA - 03/31/2024 8:28 AM EST LMTCB x 2 [facility] HospitalPxkfvgvnpt48-89-3640 Telephone encounter Note* Telephone Encounter - Jaz Rocha - 03/30/2024 10:04 AM EST LMTCB x1 [facility] HospitalLebpodnqbl37-78-2067 Telephone encounter Note* Telephone Encounter - Helen Castellano MA - 03/30/2024 9:03 AM EST Please call and try to reschedule patient's follow up, missed in January. Emgality refill sent. [facility] [id number] NoteCT cervical spine on 01/24/2024 Provided History: Postoperative evaluation Comparison: C-spine MRI on 12/11/2023 Technical: Multiple axial images were obtained through the cervical spine without contrast. Two dimensional reconstructions were performed in the sagittal and coronal plane. This CT study was performed using one or more of the following dose reduction techniques: automated exposure control, adjustment of the mA and/or kV according to patient's size and/or use of iterative reconstruction technique. Findings: There is no fracture or malalignment. The vertebral heights are maintained. The craniocervical junction is unremarkable. There are degenerative changes at C1-C2 articulation. The prevertebral soft tissue is within normal limits. Postoperative changes compatible with interbody fusion at C5-C6 and C6-C7 in satisfactory alignment. Moderate degenerative changes of the cervical spine described end details on the prior MRI dated 12/11/2023.. Small amount of air and fluid/hemorrhage in the soft tissues of the right neck, likely related to postsurgical changes.. IMPRESSION: Postoperative changes compatible with interbody fusion at C5-C6 and C6-C7 in satisfactory alignment Radiation Dose Estimate: CTDI(mGy):0.511053 / / / kVp:120.891742 / mAs:0.757834 / / / DLP(mGy- cm):2.490694Jkqm Part: Neck CTDI(mGy):31.135855 / / / kVp:140.028471 / mAs:215.082093 / / / DLP(mGy- cm):681.959976Hhsh Part: Final Dictated by: Bonnie Stokes MD Dictated DT/TM: 01.24.2024 1:33 pm Signed by: Bonnie Stokes MD Signed (Electronic Signature): 01.24.2024 1:42 pm (If Report Is Signed, Electronically Signed in Other Vendor System)[facility]11-15-2024 NoteProcedure: Intraoperative cervical spine fluoroscopy. Images: Intraoperative AP and lateral fluoroscopic image holds of the cervical spine. Fluoroscopy dose: 7.0 mGy cumulative dose. Clinical Information: 48-year-old male with anterior cervical spine fusion and discectomy. Comparison: Cervical spine radiographs 12/29/2023. FINDINGS/IMPRESSION: Bones: Intraoperative changes of discectomy and interbody cage fusion at C5-6 and C6-7. Hardware grossly in expected position. Similar mild anterolisthesis at C4-5. Intervertebral discs: Intact height of C2-3 through C4-5. Facet joints: Similar advanced C3-4 and C4-5 osteoarthrosis (OA). Soft tissues: Intraoperative support lines and tubes. Please see operative report for a full description of the procedure performed. Final Dictated by: Dakota Falk MD Dictated DT/TM: 01/24/2024 1:21 pm Signed by: Dakota Falk MD Signed (Electronic Signature): 01/24/2024 1:25 pm (If Report Is Signed, Electronically Signed in Other Vendor System)[facility]10-07-2024 NoteHNO ID: [id number] Author: SHYANNE RODRÍGUEZ APRN.TAVERN KEEPER Service: ? Author Type: Nurse Practitioner Type: Progress Notes Filed: 12/16/2023 11:30 Note Text: VIRTUAL VISIT FOLLOW UP I have communicated my name and active licensure. The patient's identity and physical location were verified at the time of this visit. Either the patient or their legal field service representative has been informed of the risks and benefits of -- and alternatives to GERD treatment through a remote evaluation and consents to proceed with the evaluation remotely. I had a virtual visit with Mr. Dumont today for follow up of GERD. UPDATED HISTORY: LS 12/2021- dysphagia, IBS-D failing colestipol, fiber, IModium, Xifaxan. S/p melchor. Consider TCA with psychiatry Tried Welchol EGD/Colon 03/13/22: - Preparation of the colon was fair. [...] left colon for evaluation of microscopic colitis. - No endoscopic esophageal abnormality to explain patient's dysphagia. - Erythematous mucosa in the gastric body and antrum. Biopsied. - Normal examined duodenum. Biopsied. A. Small intestine, biopsy: - Small bowel mucosa with [...] No evidence of lymphocytic or collagenous colitis. Repeat colon 2027 MRE 06/2022 normal with +constipation 02/2022 elastase WNL. Neg infectious studies. Sx: Welchol, 40mg omep Since his last visit he has been dx'd with DM, s/p spinal sugery. IBS symptoms have changed a lot on Trulicity. He is now more prone to constipation. Can go 3 days without bms. He is doing great on 40mg omeprazole. No UGI sx at this time on the PPI. Hasn't taken welchol for over a year or more. No past medical history on file. PAST SURGICAL HISTORY Procedure Laterality Date CHOLECYSTECTOMY HERNIA REPAIR HX FAMILY HISTORY Problem Relation Age of Onset Colon Cancer Father Social History Tobacco Use Smoking status: Never Smokeless tobacco: Never Vaping Use Vaping status: Never Used Substance Use Topics Alcohol use: Not Currently Drug use: Not Currently Current Outpatient Medications Medication Sig Dispense Refill omeprazole (PRILOSEC) 40 mg capsule take 1 capsule by mouth once daily 90 capsule 0 glucagon (GLUCAGEN) 1 mg/mL injection Inject 1 mg intravenously one time only for 1 dose. For MRI Enterography, Inject 1 mg intravenously, as directed. Slow push at the appropriate time during MRI Scan 1 Each 0 pregabalin (LYRICA) 50 mg capsule TAKE 1 CAPSULE (50 MG TOTAL) BY MOUTH IN THE MORNING AND 1 CAPSULE (50 MG TOTAL) BEFORE BEDTIME. rizatriptan (MAXALT) 5 mg tablet TAKE 1 TABLET BY MOUTH AT ONSET OF MIGRAINE MAY REPEAT 1 TAB IN 2HRS IF NEEDED colesevelam (WELCHOL) 625 mg tablet START WITH 1 TABLET AT BEDTIME THEN INCREASE TO 2 TABLETS IF DIARRHEA PERSISTS 60 tablet 5 acetaminophen (TYLENOL) 500 mg tablet Take 1,300 mg by mouth. ALPRAZolam (XANAX) 0.5 mg tablet Take 0.5 mg by mouth. baclofen (LIORESAL) 20 mg tablet TAKE 1 TABLET BY MOUTH EVERYDAY AT BEDTIME benazepril (LOTENSIN) 10 mg tablet Take 10 mg by mouth once daily. benazepril/hydrochlorothiazide (LOTENSIN HCT ORAL) cetirizine (ZYRTEC) 10 mg tablet escitalopram oxalate (LEXAPRO) 20 mg tablet Take 20 mg by mouth. fremanezumab-vfrm (AJOVY AUTOINJECTOR) 225 mg/1.5 mL auto-injector rosuvastatin (CRESTOR) 20 mg tablet Take 20 mg by mouth. No current facility-administered medications for this visit. ALLERGIES No Known Allergies REVIEW OF SYSTEMS: PAIN ASSESSMENT: Negative for pain, history of chronic pain, or current treatment for a chronic pain condition. GENERAL: No weight loss, malaise or fevers RESPIRATORY: Negative for cough, hemoptysis, wheezing, COPD, dyspnea or shortness of breath CARDIOVASCULAR: Negative for chest pain, leg swelling, hypertension, CHF or palpitations GI: See above PHYSICAL FINDINGS OF NOTE: General - Normal, healthy, cooperative, in no acute distress Able to interact verbally by video conference Psych - ORIENTATION: normal to time place, person and situation Mood/Affect: AFFECT AND MOOD: Normal Head/Ne (more content not included)...[facility]10-07-2024 History of Present illness Narrative* Shyanne Rodríguez, RECTIFYING OPERATOR.TAVERN KEEPER - 12/16/2023 11:06 AM EDT VIRTUAL VISIT FOLLOW UP I have communicated my name and active licensure. The patient's identity and physical location wereverified at the time of this visit. Either the patient or their legal field service representative has been informed of the risks and benefits of -- and alternatives to GERD treatment through a remote evaluation and consents to proceed with the evaluation remotely. I had a virtual visit with Mr. Dumont today for follow up of GERD. UPDATED HISTORY: LS 12/2021- dysphagia, IBS-D failing colestipol, fiber, IModium, Xifaxan. S/p melchor. Consider TCA with psychiatry Tried Welchol EGD/Colon 03/13/22: - Preparation of the colon was fair. [...] left colon for evaluation of microscopic colitis. - No endoscopic esophageal abnormality to explain patient's dysphagia. - Erythematous mucosa in the gastric body and antrum. Biopsied. - Normal examined duodenum. Biopsied. A. Small intestine, biopsy: - Small bowel mucosa with [...] No evidence of lymphocytic or collagenous colitis. Repeat colon 2027 MRE 06/2022 normal with +constipation 02/2022 elastase WNL. Neg infectious studies. Sx: Welchol, 40mg omep Since his last visit he has been dx'd with DM, s/p spinal sugery. IBS symptoms have changed a lot on Trulicity. He is now more prone to constipation. Can go 3 days without bms. He is doing great on 40mg omeprazole. No UGI sx at this time on the PPI. Hasn't taken welchol for over a year or more. No past medical history on file. PAST SURGICAL HISTORY Procedure Laterality Date CHOLECYSTECTOMY HERNIA REPAIR HX FAMILY HISTORY Problem Relation Age of Onset Colon Cancer Father Social History Tobacco Use Smoking status: Never Smokeless tobacco: Never Vaping Use Vaping status: Never Used Substance Use Topics Alcohol use: Not Currently Drug use: Not Currently Current Outpatient Medications Medication Sig Dispense Refill omeprazole (PRILOSEC) 40 mg capsule take 1 capsule by mouth once daily 90 capsule 0 glucagon (GLUCAGEN) 1 mg/mL injection Inject 1 mg intravenously one time only for 1 dose. For MRI Enterography, Inject 1 mg intravenously, as directed. Slow push at the appropriate time during MRI Scan 1 Each 0 pregabalin (LYRICA) 50 mg capsule TAKE 1 CAPSULE (50 MG TOTAL) BY MOUTH IN THE MORNING AND 1 CAPSULE (50 MG TOTAL) BEFORE BEDTIME. rizatriptan (MAXALT) 5 mg tablet TAKE 1 TABLET BY MOUTH AT ONSET OF MIGRAINE MAY REPEAT 1 TAB IN 2HRS IF NEEDED colesevelam (WELCHOL) 625 mg tablet START WITH 1 TABLET AT BEDTIME THEN INCREASE TO 2 TABLETS IF DIARRHEA PERSISTS 60 tablet 5 acetaminophen (TYLENOL) 500 mg tablet Take 1,300 mg by mouth. ALPRAZolam (XANAX) 0.5 mg tablet Take 0.5 mg by mouth. baclofen (LIORESAL) 20 mg tablet TAKE 1 TABLET BY MOUTH EVERYDAY AT BEDTIME benazepril (LOTENSIN) 10 mg tablet Take 10 mg by mouth once daily. benazepril/hydrochlorothiazide (LOTENSIN HCT ORAL) cetirizine (ZYRTEC) 10 mg tablet escitalopram oxalate (LEXAPRO) 20 mg tablet Take 20 mg by mouth. fremanezumab-vfrm (AJOVY AUTOINJECTOR) 225 mg/1.5 mL auto-injector rosuvastatin (CRESTOR) 20 mg tablet Take 20 mg by mouth. No current facility-administered medications for this visit. ALLERGIES No Known Allergies REVIEW OF SYSTEMS: PAIN ASSESSMENT: Negative for pain, history of chronic pain, or current treatment for a chronic pain condition. GENERAL: No weight loss, malaise or fevers RESPIRATORY: Negative for cough, hemoptysis, wheezing, COPD, dyspnea or shortness of breath CARDIOVASCULAR: Negative for chest pain, leg swelling, hypertension, CHF or palpitations GI: See above PHYSICAL FINDINGS OF NOTE: General - Normal, healthy, cooperative, in no acute distress Able to interact verbally by video conference Psych - ORIENTATION: normal to time place, person and situation Mood/Affect: AFFECT AND MOOD: Normal Head/Neuro - Normal size and shape Facial appearance normal IMPRESSION 48 y/o male presents for f/u of presumed BAM with IBS and GERD. He is doing great on 40mg omeprazole with no reflux symptoms at this time. He is newly on Trulicity and is tolerating it well from an UGI standpoint but this did seem to result in a switch from diarrhea to constipation. He can now go several days without a bm. RECOMMENDATION: -Start 1-2 tabs colace daily -High fiber diet with lots of water daily -Continue 40mg omeprazole daily -Consider Miralax if no better in a few weeks -Colon 2027 I spent more than 15 minutes busc-xx-[id number] with the patient and over half the time was devoted to counseling and/or coordination of care. Shyanne Rodríguez APRN.TAVERN KEEPER documented in this encounterC[facility] History of Present illness Narrative* Sneha Ann NP - 11/26/2023 3:00 PM EDT Images from the original note were not included. Chief Complaint Patient presents with Migraine Sleep Apnea Back Pain Neck Pain Subjective Donell Dumont, 48 y.o., male Patient is here for follow up to migraines. He continues on Emgality which was has been helpful in reducing his migraine frequency and intensity. He does admit to a recent exacerbation and is currently experiencing constant, daily migraines. Admits accompanying nausea, light/ sound sensitivity and blurred vision with migraines. He also admits significant neck pain after moving some furniture thatcan be contributing, R>L. He takes baclofen by another provider. Denies any recent visits to pain management. Rizatriptan although previously effective as an abortive is on hold due to cardiac concerns. He reports that he had a recent abnormal stress test and ECHO, now following [facility] cardio. He is to complete cardiac catheterization tomorrow. Denies any recent visits to sleep medicine, did nottolerate CPAP. States he has a follow up with neurosurgery on Saturday. Denies any other concerns today. Review of Systems Constitutional: Negative for appetite change, fatigue and fever. Respiratory: Negative for cough, shortness of breath and wheezing. Cardiovascular: Negative for leg swelling. Positive for episodic chest pain and palpitations Gastrointestinal: Negative for abdominal pain, constipation, diarrhea and nausea. Musculoskeletal: Positive for back pain and neck pain. Negative for arthralgias, gait problem and myalgias. Neurological: Positive for headaches. Negative for dizziness, tremors and numbness. Past Medical History: Diagnosis Date Anxiety Asthma (CMS/HCC) Hypertension (CMS/HCC) Melanoma (CMS/HCC) Past Surgical History: Procedure Laterality Date CARPAL TUNNEL RELEASE OTHER SURGICAL HISTORY interventional pain procedures OTHER SURGICAL HISTORY anesthesia problems OTHER SURGICAL HISTORY surgical complications SPINE SURGERY 2022 Family History Problem Relation Name Age of Onset Diabetes Mother Hyperlipidemia Mother Hypertension Mother Liver disease Mother Migraines Mother Cancer Father Coronary artery disease Father Diabetes Father Allergies Other Other (hearing deficiency) Other Osteoporosis Other Peripheral vascular disease Other Social History Tobacco Use Smoking status: Never Smokeless tobacco: Not on file Substance Use Topics Alcohol use: Yes Comment: caffeine: 1-2 cups per day Allergies: Patient has no known allergies. Vitals: 11/26/23 1518 BP: 114/68 Pulse: 70 Body mass index is 23.75 kg/m . weight: 185 lb Neurologic exam: Mental status: Well nourished, well developed and in no acute distress. Grossly oriented to person, place and time. Recent and remote memory are intact. Language is fluent without aphasia. Attention and concentration are normal. Fund of knowledge is appropriate for level of education. Cranial nerves: CN II: Visual acuity is normal. Visual ray full to confrontation. CN III, IV, : pupils equal round and reactive to light. Extraocular movements intact. No ptosis present. CN V: Facial sensation is normal. CN VII: Full and symmetric facial movement. CN VIII: Hearing is intact. CN IX and X: Palate elevates symmetrically. CN XI: Shoulder shrug is normal bilaterally. CN XII: Tongue is midline without atrophy or fasciculation. Motor: RUE Strength deltoid, , biceps , triceps , wrist extensors , wrist flexor , fisher clam strength 5/5. LUE Strength deltoid , biceps , triceps , wrist extensors , wrist flexor , fisher clam strength 5/5. RLE Strength illopsoas, quadriceps, tibialis anterior, and gastrocnemius strength 5/5. LLE Strength illopsoas, quadriceps, tibialis anterior, and gastrocnemius strength 5/5. Normal tone x4 extremities. Bulk is normal. Sensory: Sensation is intact to light touch throughout distal extremities. Reflexes: RUE biceps reflex 2+ , brachioradialis reflex 2+. LUE biceps reflex 2+ , brachioradialis reflex 2+. RLE knee reflex 2+ LLE knee reflex 2+ Mims's Sign negative. Coordination: [id number] testing is normal Rapid alternating movements are normal Gait: Normal Review and summary of old records: Dr. Luther consultation note from 12/29/2021 identified no radiculopathy with further review of MRI and no surgical interventional need. Recommendation for pain management. [facility] 10[facility]: L5-S1: There is a circumferential disc bulge with mild facet degenerative change. There is mild spinal canal narrowing. There is endplate osteophyte formation. There is moderate left and severe right neural foraminal narrowing with mass effect on exiting L5 nerveroots, right greater than left. At L4-L5: There is circumferential disc bulge with facet hypertrophy. There is mild spinal canal stenosis with mild left and moderate right neural foraminal narrowing.At T12-L1: There is a left central disc protrusion. There is mild spinal canal stenosis without significant neural foraminal narrowing. MRI brain at [facility] on 10/02/21: No acute intracranial pathology or abnormal postcontrast enhancement. EMG of the bilateral upper extremities [facility] on 11/03/20: Median neuropathyon the left consistent with moderate carpal tunnel. A remote C8 motor radiculopathy on the left which is mild in degree electrically. MRI of the cervical spine without contrast on 09/27/20: Multilevel moderate to marked neural foraminal narrowing related to degenerative disc disease and facet arthropathy. Multilevel mild to moderatecanal stenosis secondary to degenerative disc dise. Assessment/Plan Diagnoses and all orders for this visit: Migraine without status migrainosus, not intractable, unspecified migraine type (CMS/HCC) It is my impression that the patient has chronic migraines. Accompanying phonophobia, photophobia, nausea and blurred vision. He has tried and failed sumatriptan, verapamil, and Ajovy. MRI brain in 2021 was unremarkable. He does have DIANA which is likely contributing to migraines. Emgality has previously been very beneficial though the patient does admit to a recent exacerbation. The patient does have new cardiac concerns and I have given consideration that the stress of this may be exacerbatinghis symptoms. He has had recent medication adjustments by cardiology including the addition of metoprolol which may also provide some headache/migraine benefit. As such, we will hold of on further pre ventative adjustments at this time. PLAN: - Continue Emgality 120 mg SC injection monthly. Currently tolerating without side effects - Start Ubrelvy 100 mg PO as needed at onset of breakthrough migraine. May repeat dose x 1 after 2 hours. Max 200 mg/24 hours. Side effects were discussed in detail and the patient would like to proceed. (Previously documented as ineffective but the patient only tried 50 mg tablet samples). Samplesprovided today. - Stop rizatriptan (due to concurrent cardiology concerns) - Nurtec was ineffective - Recommended adequate hydration, sleep hygiene, and regular exercise. DIANA (obstructive sleep apnea) The patient has DIANA and did not tolerate CPAP. We have discussed how untreated DIANA can impact not only his sleep but also the cardiovascular system and the patient has verbalized understanding. He does feel that he is sleeping better with amitriptyline. PLAN: - Continue follow up with sleep medicine (Dr. Kumari) as recommended - Now on amitriptyline (likely beneficial from a migraine standpoint as well) DDD (degenerative disc disease), cervical The patient does have degenerative disc disease of the cervical spine confirmed with MRI in 2020. This would explain neck pain and likely serves as a trigger for migraines. No weakness or reflex changes on clinical exam. PLAN: - Close follow-up with pain management, the patient denies any recent visits. - Could consider repeat MRI of the cervical spine should neck pain worsen Carpal tunnel syndrome, left EMG in 2020 demonstrates findings consistent with moderate CTS on the left. This doesn't seem to beparticularly bothersome currently. We will continue to monitor clinically. PLAN: - Ok to use cock up splints at night - If symptoms worsen consider referral to ortho Chronic low back pain, unspecified back pain laterality, unspecified whether sciatica present Now status post surgical intervention (11/2022) in [place]. He reports symptoms have improved. PLAN: - Continue follow up with neurosurgery ([place]) as recommended - Continue follow up with pain management, he denies any recent visits. Malignant melanoma of left ear (CMS/HCC) Important clinical diagnosis. MRI of the brain September of 2021 was unremarkable with no evidence of metastasis. Follow up in 1-2 months or sooner if symptoms worsen, fail to improve, or should a new neurologicalconcern arise. Pt has been fully educated on their diagnosis, treatment options, follow up plan, and return instructions documented in this encounterTexas County Memorial [id number] Telephone encounter Note* Telephone Encounter - Kylah Aj - 08/06/2023 1:58 PM EDT LVM [place] [facility] [place]. [facility]05-28-[facility] Miscellaneous Notes* Telephone Encounter - Kylah Aj - 08/06/2023 1:58 PM EDT LVM for patient to [place] [facility] [place]. * Telephone Encounter - Tiffani Draper MA - 08/02/2023 8:25 AM EDT Last OV 01/01/22 Next OV none Last procedure: 03/13/22 Colonoscopy and EGD No upcoming procedures scheduled Pharmacy calls in requesting the following refill(s): Requested Prescriptions Pending Prescriptions Disp Refills omeprazole (PRILOSEC) 40 mg capsule [Pharmacy Med Name: OMEPRAZOLE DR 40 MG CAPSULE] 90 capsule 3 Sig: take 1 capsule by mouth once daily documented in this encounterC[facility]05-[facility]24 Telephone encounter Note * Telephone Encounter - Tiffani Draper MA - 08/02/2023 8:25 AM EDT Last OV 01/01/22 Next OV none Last procedure: 03/13/22 Colonoscopy and EGD No upcoming procedures scheduled Pharmacy calls in requesting the following refill(s): Requested Prescriptions Pending Prescriptions Disp Refills omeprazole (PRILOSEC) 40 mg capsule [Pharmacy Med Name: OMEPRAZOLE DR 40 MG CAPSULE] 90 capsule 3 Sig: take 1 capsule by mouth once daily [facility]12-26-[facility] Evaluation note* Encounter Date Diagnosis Assessment Notes Treatment Notes Treatment Clinical Notes Feb, Acute bacterial conjunctivitis o f both eyes (ICD-10 - H10.33) Use artificial tears to cleanse eye. Warm washcloth to remove hard debris Feb,cute bronchitis due to other specified organisms (ICD-10 - J20.8) Instructed to use Robitussin or Mucinex for cough, saline or Flonase NS for congestion, Tylenol forpain and fever. Feb,Type 2 diabetes mellitus with hyperglycemia (ICD-10 - E11.65) Increases risk for more prolonged illness [facility] Other [id number] Evaluation note* Encounter Date Diagnosis Assessment Notes Treatment Notes Treatment Clinical Notes Feb, Type 2 diabetes mellitus with hy perglycemia (ICD-10 - E11.65) This patient is following [...] Microalbumin, Dilated eye exam and Foot exam Feb,rimary hypertension (ICD-10 - I10)This patient is instructed to consume a healthy, low-fat, low-salt diet. They are also encouraged to continue exercise to achieve/maintain a normal BMI. Feb,Elevated cholesterol (ICD-10 - E78.00)Instructed on diet and exercise with continued statin therapy.Discussed the beneficial effects of lo wering cholesterol in reducing the risk for cerebrovascular and cardiovascular disease. Feb,OSA (obstructive sleep apnea) (ICD-10 - G47.33)AHI 11This patient is aware of the benefits associated with DIANA: With continued use, the patient reduces the risk for AK, CVA, HTN, cardiac dysrhythmias and sudden cardiac deaths.The patient is also aware of the association between DIANA and morning headaches, daytime somnolence, fatigue and obesity Noncompliant Feb,astroesophageal reflux disease with esophagitis without hemorrhage (ICD-10 - K21.00)Avoid lying flat after eating. Avoid eating 2 hours prior to bedtime. Smaller, frequent meals may be better tolerated.Weight loss if overweight.PPI with any heartburn.Monitor for dysphagia. Feb,AD (generalized anxiety disorder) (ICD-10 - F41.1)Healthy diet and exercise Keep active w/o change in treatment Avoid abrupt w/d of medication Feb,Long term (current) use of insulin (ICD-10 - Z79.4) [facility] Other 12-18-2023 Evaluation note* Encounter Date Diagnosis Assessment Notes Treatment Notes Treatment Clinical Notes Feb, Type 2 diabetes mellitus with hy perglycemia (ICD-10 - E11.65) [facility] Other 12-15-2023 Evaluation note* Encounter Date Diagnosis Assessment Notes Treatment Notes Treatment Clinical Notes Feb, Dysfunction of left eustachian t ube (ICD-10 - H69.92) Instructed on valsalva maneuver. Instructed to use Mary D daily as well as Flonase. Avoid Steroids due to diabetes and recent surgery. Feb,Non-seasonal allergic rhinitis due to pollen (ICD-10 - J30.1)Mary D daily. Call w/ any purulent drainage or fever [facility] Other 11-27-2023 Evaluation note* Encounter Date Diagnosis Assessment Notes Treatment Notes Treatment Clinical Notes Jan, Acute non-recurrent maxillary si nusitis (ICD-10 - J01.00) Instructed to use Robitussin or Mucinex for cough, saline or Flonase NS for congestion, Tylenol forpain and fever. Jan,Salpingitis of left eustachian tube (ICD-10 - H68.002)Flonase NS daily Valsalva maneuver to open ET. [facility] Other 09-20-2023 Evaluation note* Encounter Date Diagnosis Assessment Notes Treatment Notes Treatment Clinical Notes Nov, Type 2 diabetes mellitus with hy perglycemia (ICD-10 - E11.65) Stable w/ A1C 7% w/ average BS 150. Decrease Lantus to 25u the night prior to surgery. Hold Humalog the morning of surgery. Would anticipate frequent accu checks w/ insulin sliding scale during his postoperative period. Nov,Wellness examination (ICD-10 - Z00.00)I have seen and examined Mr. Dumont for [...] hold his Humalog the morning of surgery. Nov,rimary hypertension (ICD-10 - I10)Stable, continue medications w/o interruption. Nov,Elevated cholesterol (ICD-10 - E78.00)Stable, continue medication w/o interruption. Nov,OSA (obstructive sleep apnea) (ICD-10 - G47.33)AHI 11Mild DIANA, not presently using CPAP. Instructed to avoid sleeping on his back and to continue w/ weight loss measures. Nov,astroesophageal reflux disease with esophagitis without hemorrhage (ICD-10 - K21.00)Stable w/o heartburn or dysphagia. Continue treatment w/o interruption Nov,AD (generalized anxiety disorder) (ICD-10 - F41.1)Stable. Nov,Lo term (current) use of insulin (ICD-10 - Z79.4) [facility] Other 08-15-2023 Evaluation note* Encounter Date Diagnosis Assessment Notes Treatment Notes Treatment Clinical Notes Oct, Type 2 diabetes mellitus with hy perglycemia (ICD-10 - E11.65) Much improved w/ recent A1C 7.7% (average BS < 180) - average BS per his CGM is lower I reviewed his treatment and instructed him to decrease his basal insulin to 35u the night prior tosurgery and to hold his morning short acting insulin. Oct,reop exam for internal medicine (ICD-10 - Z01.818)Mr. Dumont has been evaluated for surgery and medications reviewed. Instructed to hold his insulin and his Januvia the morning of surgery. Oct,rimary hypertension (ICD-10 - I10)Stable, continue medication w/o interruption Oct,Elevated cholesterol (ICD-10 - E78.00)Stable, continue medication w/o interruption Oct,OSA (obstructive sleep apnea) (ICD-10 - G47.33)AHI 11Does not use PAP due to intolerance to wearing mask and mild disease. Instructed to avoid sleeping on back AHI 11 Oct,astroesophageal reflux disease with esophagitis without hemorrhage (ICD-10 - K21.00)Stable, continue medication w/o interruption Oct,AD (generalized anxiety disorder) (ICD-10 - F41.1)Stable, continue medication w/o interruption Oct,Lo term (current) use of insulin (ICD-10 - Z79.4) [facility] Other 07-07-2023 Evaluation note* Encounter Date Diagnosis Assessment Notes Treatment Notes Treatment Clinical Notes Sep, Type 2 diabetes mellitus with hy perglycemia (ICD-10 - E11.65) This patient is following [...] 8u + correction _update office next week Sep,Long term (current) use of insulin (ICD-10 - Z79.4) Sep,rimary hypertension (ICD-10 - I10)This patient is instructed to consume a healthy, low-fat, low-salt diet. They are also encouraged to continue exercise to achieve/maintain a normal BMI. Patient is instructed on home BP measurements: - rest for 5 minutes w/o talking- positioned w/ feeton floor and arm supported- average best 2/3 readings w/ goal < 135-85 Sep,Overweight (ICD-10 - E66.3)This patient has been instructed on a low-fat, high-fiber diet. They are instructed to reduce calories, portion sizes and snacks. It is recommended that they exercise for 30 minutes, 3-5 times weekly. [facility] Other 06-07-2023 Evaluation note* Encounter Date Diagnosis Assessment Notes Treatment Notes Treatment Clinical Notes Aug, Type 2 diabetes mellitus with hy perglycemia (ICD-10 - E11.65) This patient is following [...] or FBS < 150 Continue ISS coverage Aug,Elevated cholesterol (ICD-10 - E78.00)Instructed on diet and exercise with continued statin therapy.Discussed the beneficial effects of lo wering cholesterol in reducing the risk for cerebrovascular and cardiovascular disease. Aug,rimary hypertension (ICD-10 - I10)This patient is instructed to consume a healthy, low-fat, low-salt diet. They are also encouraged to continue exercise to achieve/maintain a normal BMI. Aug,Long term (current) use of insulin (ICD-10 - Z79.4) [facility] Other 05-31-2023 Evaluation note* Encounter Date Diagnosis Assessment Notes Treatment Notes Treatment Clinical Notes July, Type 2 diabetes neel itus with hyperglycemia, without long-term current use of insulin (ICD-10 - E11.65) [facility] Other 05-30-2023 Evaluation note* Encounter Date Diagnosis Assessment Notes Treatment Notes Treatment Clinical Notes July, Primary hypertension (ICD-10 - I 10) This patient is instructed to consume a healthy, low-fat, low-salt diet. They are also encouraged to continue exercise to achieve/maintain a normal BMI. July,Type 2 diabetes mellitus with hyperglycemia, without long-term current use of insulin (ICD-10 - E11.65)Refer to diabetic education. Begin healthy diet, exercise and weight loss Begin Accu cheks AC Begin treatment w/ basal insulin and meal time insulin at largest meal Record BS readings before each meal and bring to office for review July,ure hypercholesterolemia (ICD-10 - E78.00)Instructed on diet and exercise with continued statin therapy.Discussed the beneficial effects of lo wering cholesterol in reducing the risk for cerebrovascular and cardiovascular disease. July,astroesophageal reflux disease with esophagitis without hemorrhage (ICD-10 - K21.00)Diet instructions: Smaller portions, avoid eating and laying flat, avoid eating or drinking prior to bedtime. Weight loss. July,AD (generalized anxiety disorder) (ICD-10 - F41.1)Instructed on healthy diet, exercise and keeping active. No change in treatment July,OSA (obstructive sleep apnea) (ICD-10 - G47.33)AHI 11This patient is aware of the benefits associated with DIANA: With continued use, the patient reduces the risk for AK, CVA, HTN, cardiac dysrhythmias and sudden cardiac deaths.The patient is also aware of the association between DIANA and morning headaches, daytime somnolence, fatigue and obesity, whichalso has been improved with continued use.The patient is compliant with treatment, wearing the equip ment every night for greater than 4 hours.The patient is instructed to continue use of the CPAP forOSA treatment. July,Lumbar spondylosis (ICD-10 - M47.816)Scheduled for lumbar fusion, which will be postponed until diabetes brought under control [facility] Other 03-09-2023 Miscellaneous Notes* Telephone Encounter - Shyanne Rodríguez APRN.NIEVES - 05/17/2022 4:06 PM EST LVM: updated on MRE which shows no signs of IBD. +constipation. L5-S1 degenerative narrowing in thespine and a 2cm benign R renal cyst. Advised follow up OV for ongoing symptoms. documented in [facility] encounterC[facility]23 Miscellaneous Notes* Telephone Encounter - Julia Vee LPN - 04/30/2022 1:06 PM EST Patient calling the office requesting MRE order , Facesheet and OV note to be faxed to [facility]. I did fax everything over the patient is requesting. Faxed it to [phone]. I did receive confirmation that the fax did go through. The patient is aware he has to get the disk for Dr. Llamas to read the MRE. Patient verbalized good understanding. Julia Vee LPN documented in this encounterC[facility]01-16-2023 Miscellaneous Notes* Telephone Encounter - Sarah Freed RN - 03/26/2022 10:56 AM EST Patient's request for medication is as follows: Requested Prescriptions Pending Prescriptions Disp Refills omeprazole (PRILOSEC) 40 mg capsule [Pharmacy Med Name: OMEPRAZOLE DR 40 MG CAPSULE] 90 capsule 0 Sig: TAKE 1 CAPSULE BY MOUTH ONCE DAILY Prescription(s) as above. Please process accordingly. MATT Jones DO 03/15/2022 1:11 PM EST Back to Top Please review path from EGD/colonoscopy with pt which reveals normal small bowel mucosa, normal gastric mucosa, normal TI and random colon bx, 1 TA removed. Repeat EGD PRN. Repeat colonoscopy in 5 yrs. MRE ordered after procedure. Follow up in the office with Thanks [facility] Miscellaneous Notes* Telephone Encounter - Gita Hector RN - 03/15/2022 4:01 PM EST Results were reviewed with pt. He states the MRE is being scheduled out into June at [facility]. He is going to look for an appt out towards [place] if able. He will call office to have the orders faxed once he finds a facility. Sending as I. [address]. Gita [...] with Bryn. Carpenter cl documented in [facility] encounterC[facility] Miscellaneous Notes* Telephone Encounter - Shyanne Rodríguez APRN.TAVERN KEEPER - 03/15/2022 2:33 PM EST LVM: Updated [...] gastritis seen on EGD. documented in this encounterC[facility] Evaluation note* Encounter Date Diagnosis Assessment Notes Treatment Notes Treatment Clinical Notes Mar, Tubular adenoma of colon (ICD-10 - D12.6) [facility] Other 01-03-2023 Nurse Note* Francesca Darnell RN - 03/13/2022 11:03 AM EST POST OP LEARNING RESPONSE INSTRUCTION PROVIDED TO: Patient and family member METHOD OF INSTRUCTION: Written instruction - handouts Verbal instruction PATIENT / FAMILY RESPONSE: Verbalizes understanding of: MEDICAL REGIMEN- Importance of following prescribed medical regimen FOLLOW-UP PLAN: Patient instructed to call with any further issues SUPPLEMENTAL MATERIAL: Procedure discharge instructions REFERRAL (RECOMMENDATION): None Electronically Signed By: Francesca Darnell RN In Department: AMBULATORY SURGERY [facility] Nurse Note* Francesca Darnell RN - 03/13/2022 11:03 AM EST POST OP LEARNING RESPONSE INSTRUCTION PROVIDED TO: Patient and family member METHOD OF INSTRUCTION: Written instruction - handouts Verbal instruction PATIENT / FAMILY RESPONSE: Verbalizes understanding of: MEDICAL REGIMEN- Importance of following prescribed medical regimen FOLLOW-UP PLAN: Patient instructed to call with any further issues SUPPLEMENTAL MATERIAL: Procedure discharge instructions REFERRAL (RECOMMENDATION): None Electronically Signed By: Francesca Darnell RN In Department: AMBULATORY SURGERY * Lizbeth Vazquez RN - 03/13/2022 10:11 AM EST PRE OP LEARNING ASSESSMENT PROCEDURE/SURGERY: GI PROCEDURES: Colonoscopy and EGD READINESS TO LEARN COGNITIVE ABILITY: Alert and oriented MOTIVATION TO LEARN: Eager FAMILY SUPPORT: Unable to assess - Family not present PATIENT LEARNS BEST BY: Individual Instruction FACTORS AFFECTING LEARNING: None PHYSICAL LIMITATIONS AFFECTING LEARNING: None Electronically Signed By: Lizbeth Humphrey RN In Department: AMBULATORY SURGERY documented in this encounterC[facility]23 History and physical note * Vashti Llamas DO - 03/13/2022 10:30 AM EST HISTORY AND PHYSICAL Donell Dumont, 46 year old male Current history and physical on file: No Is a new History and Physical required for today's visit? Yes Indication for procedure: Diarrhea PROCEDURE(S) SCHEDULED FOR: Colonoscopy with or without biopsies and with or without removal of polyps or lesions, dilation (any means), treatment of bleeding (any means), based on clinical findings. and EGD (Esophagogastroduodenoscopy) with or without biopsies, removal of polyps or lesions, dilation ( any means), treatment of bleeding ( any means), Barrx treatment of Kris's Esophagus, image tube placement or cryo therapytreatment based on clinical findings. BASELINE BEHAVIOR: Calm BASELINE ORIENTATION: A & O x3 All medications and allergies reviewed: [...] MAC Additional Comments: None Vashti Llamas DO [facility] History and physical note* Vashti Llamas DO - 03/13/2022 10:30 AM EST HISTORY AND PHYSICAL Donell Dumont, 46 year old male Current history and physical on file: No Is a new History and Physical required for today's visit? Yes Indication for procedure: Diarrhea PROCEDURE(S) SCHEDULED FOR: Colonoscopy with or without biopsies and with or without removal of polyps or lesions, dilation (any means), treatment of bleeding (any means), based on clinical findings. and EGD (Esophagogastroduodenoscopy) with or without biopsies, removal of polyps or lesions, dilation ( any means), treatment of bleeding ( any means), Barrx treatment of Kris's Esophagus, image tube placement or cryo therapytreatment based on clinical findings. BASELINE BEHAVIOR: Calm BASELINE ORIENTATION: A & O x3 All medications and allergies reviewed: [...] MAC Additional Comments: None Vashti Llamas DO documented in this encounterC[facility]23 Nurse Note* Lizbeth Vazquez RN - 03/13/2022 10:11 AM EST PRE OP LEARNING ASSESSMENT PROCEDURE/SURGERY: GI PROCEDURES: Colonoscopy and EGD READINESS TO LEARN COGNITIVE ABILITY: Alert and oriented MOTIVATION TO LEARN: Eager FAMILY SUPPORT: Unable to assess - Family not present PATIENT LEARNS BEST BY: Individual Instruction FACTORS AFFECTING LEARNING: None PHYSICAL LIMITATIONS AFFECTING LEARNING: None Electronically Signed By: Lizbeth Humphrey RN In Department: AMBULATORY [facility]GERY [facility] History general Narrative - Reported* Type Description Date Medical History Hypertension Surgical HistorycholecystectomySurgical Historyhernia repairSurgical History Inguinal Lymph node removedSurgical Historycolonoscopy, repeat /07/2021 Surgical HistoryEGD, repeat /2022Hospitalization HistorySee Above [facility] Other 01-01-2023 History general Narrative - Reported* Type Description Date Medical History Hypertension Medical HistoryOSASurgical HistorycholecystectomySurgical Historyhernia repair Surgical HistoryInguinal Lymph node removedSurgical Historycolonoscopy, repeat /urgical HistoryEGD, repeat /07/2021Hospitalization History See Above [facility] Other 01-01-2023 History general Narrative - Reported* Type Description Date Medical History Hypertension Medical HistoryOSASurgical HistorycholecystectomySurgical Historyhernia repair Surgical HistoryInguinal Lymph node removedSurgical Historycolonoscopy, repeat /urgical HistoryEGD, repeat /urgical HistoryLumbar laminectomy, fusion/2022Hospitalization HistorySee Above [facility] Other 12-27-2022 Miscellaneous Notes* Telephone Encounter - Olesya Betts Ma - 03/06/2022 1:11 PM EST Spoke with patient and confirmed appointment time and prep. documented in this encounterC[facility]10[facility]22 Instructions* Patient Instructions* Paige Rizzo APRN.CNP - 01/01/2022 11:42 AM EDT PLAN -Schedule Colonoscopy/EGD MAC -Resume Omeprazole 40 mg once a day -Welchol trial for diarrhea at bedtime -Stool testing for bacteria/pancreatic insufficiency -DRIP DROP/ Liquid IV for hydration documented in this encounterC[facility]10[facility] History of Present illness Narrative* Shyanne Rodríguez [...] than clears as well as with food. [place] his meal, he has to run to [...] Had dilation a few years ago in [place]. Repeat EGDearly 2021 showed no strictures, no [...] with bowels, helps with back pain Meds Kgzpgmy-jclzukvzw-hvugdvued fix when traveling. overdoses on it, not [...] 2007 Hydrocele Excision/repair 2007 Umbilical hernia repair 2012 [...] 01/01/2022 Time: 1:49 PM documented in this encounterC[facility]10-[facility]-2022 Evaluation note* Encounter Date Diagnosis Assessment Notes Treatment Notes Treatment Clinical Notes Dec, Low back pain, unspe cified back pain laterality, unspecified chronicity, unspecified whether sciatica present (ICD-10 - M54.50) Dec,pondylosis of lumbar region without myelopathy or radiculopathy (ICD-10 - M47.816)I have independently reviewed the MRI of the [...] true radiculopathy coming from the back. My recommendationis pain management. The patient understands and agrees, it may at least help his back pain. I see no evidence for surgical intervention [facility] Other 08-09-2022 Evaluation note* Encounter Date Diagnosis Assessment Notes Treatment Notes Treatment Clinical Notes Oct, Low back pain, unspe cified back pain laterality, unspecified chronicity, unspecified whether sciatica present (ICD-10 - M54.50) This patient is having persistent low back pain and has had multiple sessions of physical therapy with no improvement. He has some numbness on his anterior thigh that comes and goes and pain down theback of the leg with increased activity on the left. He has no focal findings. Given the fact that he has failed physical therapy and multiple anti-inflammatories and behavior modification I am reques ting a lumbar MRI for evaluation and treatment. Oct,alance disorder (ICD-10 - R26.89) Oct,arpal tunnel syndrome, bilateral (ICD-10 - G56.03) Oct,ervical spondylosis with radiculopathy (ICD-10 - M47.22) Oct,Lumbar radiculopathy (ICD-10 - M54.16) [facility] Other 06-27-2022 Evaluation note* Encounter Date Diagnosis Assessment Notes Treatment Notes Treatment Clinical Notes Aug, Irritable bowel syndrome with di arrhea (ICD-10 - K58.0) PATIENT STATES THAT THESE ARE LOOSE AND GOING ABOUT 6-8 TIMES. PATIENT IS ADVISED THAT WE WILL REFER TO [facility] AT THIS TIME TO A SUB SPECIALIST. Aug,Gastritis (ICD-10 - K29.70) [facility] Other 06-22-2022 Note [id number]06-05-2022 Evaluation note* Encounter Date Diagnosis Assessment Notes Treatment Notes Treatment Clinical Notes Aug, Irritable bowel syndrome with di arrhea (ICD-10 - K58.0) [facility] Other 05-16-2022 Note [id number]03-10-2022 Evaluation note* Encounter Date Diagnosis Assessment Notes Treatment Notes Treatment Clinical Notes May, Irritable bowel syndrome with di arrhea (ICD-10 - K58.0) Increase Lomotil to tid May,iarrhea (ICD-10 - R19.7) [facility] Other 12-21-2021 Evaluation note* Encounter Date Diagnosis Assessment Notes Treatment Notes Treatment Clinical Notes Feb, Diarrhea (ICD-10 - R19.7) lomotil does help with urgency and total number of bowel movements. will order some labs at this time. [facility] Other 11-11-2021 Evaluation note* Encounter Date Diagnosis Assessment Notes Treatment Notes Treatment Clinical Notes Jan, Irritable bowel syndrome with di arrhea (ICD-10 - K58.0) Continue Lomotil Flex Sig Jan,Fecal urgency (ICD-10 - R15.2) [facility] Other Evaluation noteNo InformationNort [employer] Other Evaluation noteNo assessment information available [facility] Work Phone: Evaluation note* Diagnosis Diarrhea, unspecified type- Primary Esophageal dysphagia Dysphagia, pharyngoesophageal phase Irritable bowel syndrome with diarrhea Irritable bowel syndrome documented [facility] [place] noteN/ADept. of Dermatology Evaluation noteNort [employer] Other Evaluation note* Diagnosis Onset Date Resolution Status Abnormal stress test acuteDyspneaacuteElevated cholesterolacuteGAD (generalized anxiety disorder) acuteOSA (obstructive sleep apnea)acutePrimary hypertensionacuteType 2 diabetes mellitus with hyperglycemiaacuteAbnormal EKGacuteAbnormal stress testacuteChest painacuteDyspneaacuteMixed hyperlipidemiaacutePrimary hypertensionacute [facility] Work Phone: Evaluation note* Diagnosis Diarrhea, unspecified type Esophageal dysphagia Dysphagia, pharyngoesophageal phase documented in this encounter [facility] [place] [facility]* Diagnosis Irritable bowel syndrome with constipation- Primary Irritable bowel syndrome Gastroesophageal reflux disease without esophagitis Esophageal reflux documented in this encounter [facility] [place] [facility]* Diagnosis Onset Date Resolution Status Abnormal EKG acuteAbnormal stress testacuteChest painacuteDyspneaacuteMixed hyperlipidemia acutePrimary hypertensionacuteElevated cholesterolacuteGAD (generalized anxiety disorder)acuteOSA (obstructive sleep apnea)acutePrimary hypertensionacuteThyroid noduleacuteType 2 diabetes mellitus with hyperglycemiaacuteWellness examination acute [facility] Work Phone: Evaluation note* Diagnosis Migraine without status migrainosus, not intractable, unspecified migraine type (CMS/HCC)- Primary DIANA (obstructive sleep apnea) Obstructive sleep apnea (adult) (pediatric) DDD (degenerative disc disease), cervical Degeneration of cervical intervertebral disc Carpal tunnel syndrome, left Carpal tunnel syndrome Chronic low back pain, unspecified back pain laterality, unspecified whether sciatica present Malignant melanoma of left ear (CMS/HCC) documented in this encounter [facility] HealthcareEvaluation [facility]* Diagnosis Chronic migraine without aura, not intractable, without status migrainosus (CMS/HCC) documented in this encounter [facility]* Diagnosis Chronic migraine with aura without status migrainosus, not intractable ([facility]) - Primary DIANA (obstructive sleep apnea) Obstructive sleep apnea (adult) (pediatric) DDD (degenerative disc disease), cervical Degeneration of cervical intervertebral disc Carpal tunnel syndrome, left Carpal tunnel syndrome Chronic low back pain, unspecified back pain laterality, unspecified whether sciatica present Malignant melanoma of left ear ([facility]) documented in this encounter [facility]* Diagnosis Posterior tibial tendonitis of right leg- Primary Other specified disorders of synovium, right ankle and foot Contracture of right ankle documented in [facility] encounter [facility]* Diagnosis Other specified disorders of synovium, right ankle and foot- Primary Posterior tibial tendonitis of right leg documented in [facility]* Diagnosis Other specified disorders of synovium, right ankle and foot- Primary Posterior tibial tendonitis of right leg Contracture of right ankle [facility]* Diagnosis Other specified disorders of synovium, right ankle and foot- Primary Posterior tibial tendonitis of right leg Contracture of left ankle Left Achilles tendinitis documented [facility]* Diagnosis Other specified disorders of synovium, right ankle and foot- Primary Posterior tibial tendonitis of right leg Left Achilles tendinitis Contracture of left ankle [facility]* Diagnosis Left Achilles tendinitis- Primary Contracture of left ankle Other specified disorders of synovium, right ankle and foot Posterior tibial tendonitis of right leg [facility]* Diagnosis Gastroesophageal reflux disease without esophagitis- Primary Esophageal reflux Irritable bowel syndrome with constipation Irritable bowel syndrome [facility] encounter [facility]* Diagnosis Left Achilles tendinitis [facility]* Diagnosis Left Achilles tendinitis- Primary [facility] in [facility]* Diagnosis Left Achilles tendinitis- Primary Left Achilles tendinitis- Primary Contracture of left ankle Other specified disorders of synovium, right ankle and foot Posterior tibial tendonitis of right leg documented [facility]* Diagnosis Achilles tendon tear, left, initial encounter- Primary Left Achilles tendinitis Contracture of left ankle Other specified disorders of synovium, right ankle and foot Posterior tibial tendonitis of right leg documented [facility]* Diagnosis Left Achilles tendinitis- Primary documented in [facility]* Diagnosis Left Achilles tendinitis- Primary [facility]* Diagnosis Left Achilles tendinitis- Primary Other specified disorders of synovium, right ankle and foot- Primary Achilles tendon tear, left, initial encounter Left Achilles tendinitis Posterior tibial tendonitis of right leg Contracture of left ankle Contracture of right ankle [facility]* Diagnosis Other specified disorders of synovium, right ankle and foot- Primary Achilles tendon tear, left, initial encounter Left Achilles tendinitis Posterior tibial tendonitis of right leg Contracture of left ankle Contracture of right ankle [facility]* Diagnosis Left Achilles tendinitis- Primary documented in [facility]* Diagnosis Other specified disorders of synovium, right ankle and foot- Primary Left Achilles tendinitis Posterior tibial tendonitis of right leg Contracture of left ankle Contracture of right ankle documented in this encounter [facility] HealthcareHistory general Narrative - Reported* Type Description Date Medical History Hypertension Surgical HistorycholecystectomySurgical Historyhernia repairSurgical History Inguinal Lymph node removedHospitalization HistorySee Above [facility] Other History general Narrative - [facility]NoCanons[facility] [employer] Other History of Present illness Narrative* Gregory Diehl, MER - 12/10/2024 4:00 PM EDT Patient: Donell Mcgeeupp : 1975 PCP: Jack Ortega, DO SUBJECTIVE Pt presents today for follow up of capsulitis and synovitis to the right ankle Currently they rate their pain on a 1-10 scale a 3 States prior treatments of steroid injection and nsaids with Positive improvement in the past. States pain is aggrevated with WB. Pt has also been in CAM walker Pt also has left PT tendonitis and has been using an ankle brace and NSAIDs with positive improvement in the past. Patient rates pain a 3 /10. He has severe pes planovalgus and has been wearing brace. with improvement. Patient presents today now with left posterior heel pain and believes he may have a tear with Achilles tendon and has been using nsaids / ice as well as walking boot with physical therapy with negative improvement. Patient rates pain a 7/10. Discussion of possible MRI in the past. Allergies: Allergies Allergen Reactions Codeine Hives, Itching [...] Insecurity: No Food Insecurity (06/20/2022) Received from [facility] Hun[facility] Screening Within the past 12 [...] less than 10 degrees b/l. diminished pain onpalpation medial gutter and synovium the right ankle joint. diminished pain on palpation along right posterior tibial tendon positive pain on palpation left Achilles tendon with negative palpable [place] ASSESSMENT 1. Left Achilles tendinitis 2. Contracture of left ankle 3. Other specified disorders of synovium, right ankle and foot 4. Posterior tibial tendonitis of right leg PLAN Patient may continue with ankle brace. Recommended to apply ice to affected areas for 20 minutes, twice daily. Ice should not be applied directly to skin. Patient to continue with oral anti - inflammatories as needed for pain and recommended OTC medications such as tylenol or Ibuprofen Continue with cam walker [facility] Gregory Diehl DPM documented in this encounterResearch [facility] Dis[facility] instructions Ambulatory Orders* Lipid Panel Time Frame: 01/06/25, Location: Determined By Patient [facility] Work Phone: Reason for referral (narrative)* Outpatient Procedure (Routine) - AuthorizedSpecialtyDiagnoses / ProceduresReferred By Contact [facility] Diagnoses Esophageal dysphagia Procedures EGD DIAGNOSTIC ESOPHAGOGASTRODUODENOSCOPY TRANSORAL DIAGNOSTIC Paige Rizzo, AAKASH.TAVERN KEEPER [address] [place] [address] [facility] [place] [address] [place] [address] Referral IDStatusReasonStart DateExpiration DateVisits RequestedVisits [id number] Auto-Generated Referral * Outpatient Procedure (Routine) - AuthorizedSpecialtyDiagnoses / Procedures Referred By ContactReferred To [facility] Diagnoses Diarrhea, unspecified type Procedures COLONOSCOPY DIAGNOSTIC COLONOSCOPY FLX DX W/COLLJ SPEC WHEN Paige Prescott APRN.CNP [address] [place] [address] [place] [address] Referral IDStatusReasonStart DateExpiration DateVisits RequestedVisits [id number] Auto-Generated [facility]erral [facility] (n[facility]ative)* Name Reason for referral NA NA Dept. of Dermatology Reason for referral (narrative)* Outpatient Procedure (Routine) - ClosedSpecialtyDiagnoses / ProceduresReferred By ContactReferred To [facility] Diagnoses Esophageal dysphagia Procedures EGD DIAGNOSTIC ESOPHAGOGASTRODUODENOSCOPY TRANSORAL DIAGNOSTIC Paige Rizzo APRN.CNP [id number] [place] [address] Referral IDStatusReasonStart DateExpiration DateVisits RequestedVisits [id number] Auto-Generated Referral * Outpatient Procedure (Routine) - ClosedSpecialtyDiagnoses / ProceduresReferred By ContactReferred To [facility] Diagnoses Diarrhea, unspecified type Procedures COLONOSCOPY DIAGNOSTIC COLONOSCOPY FLX DX W/COLLJ SPEC WHEN PFRMPaige Park APRN.TAVERN KEEPER [id number] [facility] [place] [address] [place] [id number] Referral IDStatusLolyasonSteverett DateExpiration DateVisits RequestedVisits [id number] Auto-Generated Referral [facility] for referral (narrative)No reason for referral information availableMadison Health Work Phone: [facility] care for visit Narrative* Outpatient Procedure (Routine) - ClosedSpecialtyDiagnoses / ProceduresReferred By ContactReferred To [facility] Diagnoses Esophageal dysphagia Procedures EGD DIAGNOSTIC ESOPHAGOGASTRODUODENOSCOPY TRANSORAL DIAGNOSTIC Paige Rizzo APRN.TAVERN KEEPER [phone] [place] [id number] Referral IDStatusReasonSteverett DateExpiration DateVisits RequestedVisits [id number] Auto-Generated Referral [facility] for visit Narrative* Rehabilitation - Outpatient (Routine) - AuthorizedSpecialtyDiagnoses / ProceduresReferred By Contact Referred To ContactPhysical Therapy Diagnoses Left Achilles tendinitis Procedures [place] OFFICE/OUTPATIENT [facility] 60 MINUTES Gregory Diehl DPM [address] [address] Phone: tel: fax: Ilsa Pittman PT Referral IDStatusReasonStart DateExpiration DateVisits RequestedVisits [id number] Specialty Services Required /[id number] [facility] [place] for visit Narrative* Rehabilitation - Outpatient (Routine) - AuthorizedSpecialtyDiagnoses / ProceduresReferred By ContactReferred To ContactPhysical Therapy Diagnoses Left Achilles tendinitis Procedures CO OFF[facility]PATIENT [facility] MDM 60 MINUTES Gregory Diehl DPM [address] [address] Phone: tel: fax: Ilsa Pittman, CHAD Referral IDStatusReasonStart DateExpiration DateVisits RequestedVisits [id number] Specialty Services Required [facility] Healthcare Reason for Referral Reason [employer]REAT Diagnosis 1 Irritable bowel synd haleigh with diarrhea (K58.0) Referral Organization [facility] Referring Provider First Name Alvino Referring Provider Last Name Klaudia Referring Provider Specialty Gastroenter ology Referred [facility] Referred Address [address] [place], [place],[address] Referred Provider Specialty Gastroentero logy Referral Priority Routine General Notes Brigid Roth 022 02:24:23 PM > REFERRAL TO GI FOR DIARRHEA. Chief Complaint and Reason for Visit Chief Complaint r27.0 M54.16 Chief Complaint m25.52 Chief Complaint m25.52 M54.50 M54.16 M51.26 M51.36 Chief Complaint 1 month HTN, T2DM, family hx of CADReason for VisitAbnormal stress test Dyspnea Elevated cholesterol MARTHA (generalized anxiety disorder) DIANA (obstructive sleep apnea) Primary hypertension Type 2 diabetes mellitus with hyperglycemia Abnormal EKG Abnormal stress test Chest pain Dyspnea Mixed hyperlipidemia Primary hypertension Chief Complaint 1 month HTN, T2DM, family hx of CAD R94.39 chest pain, abn stress 7ekgReason for VisitAbnormal stress test Dyspnea Elevated cholesterol MARTHA (generalized anxiety disorder) DIANA (obstructive sleep apnea) Primary hypertension Type 2 diabetes mellitus with hyperglycemia Abnormal EKG Abnormal stress test Chest pain Dyspnea Mixed hyperlipidemia Primary hypertension Chief Complaint 1 month HTN, T2DM, family hx of CAD R94.39 chest pain, abn stress 7ekg chest pain, abn stress 7ekg chest pain, abn stress 7ekgReason for VisitAbnormal stress test Dyspnea Elevated cholesterol MARTHA (generalized anxiety disorder) DIANA (obstructive sleep apnea) Primary hypertension Type 2 diabetes mellitus with hyperglycemia Abnormal EKG Abnormal stress test Chest pain Dyspnea Mixed hyperlipidemia Primary hypertension Chief Complaint HTN, T2DM, family hx of CAD R94.39 chest pain, abn stress 7ekg chest pain, abn stress 7ekg chest pain, abn stress 7ekg Wellness R94.31 R06.00 R07.9Reason for VisitAbnormal EKG Abnormal stress test Chest pain Dyspnea Mixed hyperlipidemia Primary hypertension Elevated cholesterol MARTHA (generalized anxiety disorder) DIANA (obstructive sleep apnea) Primary hypertension Thyroid nodule Type 2 diabetes mellitus with hyperglycemia Wellness examination Chief Complaint HTN, T2DM, family hx of CAD R94.39 chest pain, abn stress 7ekg chest pain, abn stress 7ekg chest pain, abn stress 7ekg Wellness R94.31 R06.00 R07.9 e04.1Reason for VisitAbnormal EKG Abnormal stress test Chest pain Dyspnea Mixed hyperlipidemia Primary hypertension Elevated cholesterol MARTHA (generalized anxiety disorder) DIANA (obstructive sleep apnea) Primary hypertension Thyroid nodule Type 2 diabetes mellitus with hyperglycemia Wellness examination Chief Complaint Admit Date 4 month f/u August 21, 2024 8:26 am Virtual: URI September 23, 2024 2:57 pm Reason for Visit Admit Date MARTHA (generalized anxiety disorder) August 21, 2024 8:26am DIANA (obstructive sleep apnea) August 21, 2024 8:26am Primary hypertension August 21, 2024 8:2 6am Thyroid nodule August 21, 2024 8:26 am Type 2 diabetes mellitus with hyperglyce [facility] August 21, 2024 8:26am Pharyngitis September 23, 2024 2:57 pm Chief Complaint Admit Date 4 month f/u August 21, 2024 8:26 am Virtual: URI September 23, 2024 2:57 pm fOLLOW UP September 29, 2024 8:16 am Reason for Visit Admit Date MARTHA (generalized anxiety disorder) August 21, 2024 8:26am DIANA (obstructive sleep apnea) August 21, 2024 8:26am Primary hypertension August 21, 2024 8:2 6am Thyroid nodule August 21, 2024 8:26 am Type 2 diabetes mellitus with hyperglyce [facility] August 21, 2024 8:26am Pharyngitis September 23, 2024 2:57 pm DIANA (obstructive sleep apnea) September 29, 2024 8:16am Chronic low back pain without sciatica J fahad 2024 8:16am Chronic migraine with aura w ithout status migrainosus, not intractable September 29, 2024 8:16am DDD (degenerative disc disease), cervica l September 29, 2024 8:16am Chief Complaint Admit Date 4 month f/u August 21, 2024 8:26 am Virtual: URI September 23, 2024 2:57 pm fOLLOW UP September 29, 2024 8:16 am Hives on Legs October 07, 2024 8:46 am Chief Complaint Admit Date fOLLOW UP September 29, 2024 8:16 am Hives on Legs October 07, 2024 8:46 am Wellness December 23, 2024 8 :27am Reason for Visit Admit Date DIANA (obstructive sleep apnea) September 29, 2024 8:16am Chronic low back pain without sciatica J fahad 2024 8:16am Chronic migraine with aura w ithout status migrainosus, not intractable September 29, 2024 8:16am DDD (degenerative disc disease), cervica l September 29, 2024 8:16am Type 2 diabetes mellitus with hyperglyce richi October 07, 2024 8:46am Contact dermatitis October 07, 2024 8:46 am MARTHA (generalized anxiety disorder) Octob er 2024 8:27am DIANA (obstructive sleep apnea) December 232024 8:27am Primary hypertension December 23, 2024 8:27am Screening PSA (prostate specific antigen ) December 23, 2024 8:27am Thyroid nodule December 23, 2024 8 :27am Type 2 diabetes mellitus with hyperglyce richi December 23, 2024 8:27am Wellness examination December 23, 2024 8:27am Chief Complaint Admit Date Hives on Legs October 07, 2024 8:46 am Wellness December 23, 2024 8 :27am S86.012A December 29, 2024 1 :30pm Reason for Visit Admit Date Type 2 diabetes mellitus with hyperglyce [facility] October 07, 2024 8:46am Contact dermatitis October 07, 2024 8:46 am MARTHA (generalized anxiety disorder) Octob er 2024 8:27am DIANA (obstructive sleep apnea) December 232024 8:27am Primary hypertension December 23, 2024 8:27am Screening PSA (prostate specific antigen ) December 23, 2024 8:27am Thyroid nodule December 23, 2024 8 :27am Type 2 diabetes mellitus with hyperglyce [facility] December 23, 2024 8:27am Wellness examination December 23, 2024 8:27am Chief Complaint Admit Date Wellness December 23, 2024 8 :27am S86.012A December 29, 2024 1 :30pm r/s from 12/30January 06, 2025 8 :13am Reason for Visit Admit Date MARTHA (generalized anxiety disorder) Octob er 2024 8:27am DIANA (obstructive sleep apnea) December 232024 8:27am Primary hypertension December 23, 2024 8:27am Screening PSA (prostate specific antigen ) December 23, 2024 8:27am Thyroid nodule December 23, 2024 8 :27am Type 2 diabetes mellitus with hyperglyce [facility] December 23, 2024 8:27am Wellness examination December 23, 2024 8:27am Mixed hyperlipidemia January 06, 2025 8:13am Primary hypertension January 06, 2025 8:13am Family History Relationship Condition Age at Onset Recorded Date/T nilo Not Specified Hypertension Unknown PrediabetesUnknownfatherMyocardial infarctionUnknownMalignant neoplasm of urinary bladderUnknownDiabetes mellitusUnknowngrandparentMalignant neoplasm UnknowngrandparentHeart problemUnknowngrandparentParkinson's diseaseUnknown Cerebrovascular accident (CVA)Unknown Relationship Condition Age at Onset Recorded Date/T nilo father Myocardial infarction Unknown Malignant neoplasm of urinary bladderUnknownDiabetes mellitusUnknownmother Diabetes mellitusUnknownHypertensionUnknownsisterChronic mental illnessUnknown maternal grandfatherDiabetes mellitusUnknownCerebrovascular accident (CVA) Unknownmaternal grandmotherDementiaUnknownpaternal grandfatherMalignant neoplasm Unknownpaternal grandmotherMalignant neoplasmUnknownsonEsophagitisUnknownson Chronic mental illnessUnknown Relationship Condition Age at Onset Recorded Date/T nilo father Diabetes mellitus Unknown Malignant neoplasm of urinary bladderUnknownMyocardial infarctionUnknownmother Diabetes mellitusUnknownHypertensionUnknownDisorder of kidneyUnknownsister Chronic mental illnessUnknownmaternal grandfatherDiabetes mellitusUnknown Cerebrovascular accident (CVA)Unknownmaternal grandmotherDementiaUnknownpaternal grandfatherMalignant neoplasmUnknownpaternal grandmotherMalignant neoplasm UnknownsonEsophagitisUnknownsonChronic mental illnessUnknownDiabetes mellitus Unknown Relationship Condition Age at Onset Recorded Date/T nilo father Diabetes mellitus Unknown Malignant neoplasm of urinary bladderUnknownMyocardial infarctionUnknownmother Diabetes mellitusUnknownHypertensionUnknownDisorder of kidneyUnknownmaternal grandfatherDiabetes mellitusUnknownCerebrovascular accident (CVA)UnknownHeart diseaseUnknownmaternal grandmotherDementiaUnknownpaternal grandfatherMalignant neoplasmUnknownpaternal grandmotherMalignant neoplasmUnknownsisterObsessive- compulsive disorderUnknownGeneralized anxiety disorderUnknownsonGastroesophageal reflux diseaseUnknownIrritable bowel syndromeUnknownEosinophilic esophagitis Unknown Advance Directives Advance Directive Response Recorded Date/ Time Advance Directives No March 23, 2019 1:15pm Summary Purpose Additional Source Comments REASON FOR VISIT (unrecogniz ed section and content) ReasonCommentsNew PatientReasonCommentsRefill RequestReasonCommentsAppointment E/CReasonCommentsResultsReasonCommentsPatient QuestionFax [facility]ReasonCommentsGERDReasonCommentsMigraineSleep ApneaBack PainNeck Pain ReasonOnset DateCommentsNeeds appt03/28/2024ReasonCommentsMigraineNeck Pain ReasonCommentsAnkle PainRt ankle painReasonCommentsFollow-upRt ankle check/ pt follow upReasonCommentsAchilles PainReasonCommentsFollow-upachillesReason CommentsFollow-upLT ACHILLESReasonCommentsFollow-upLt achillesReasonComments Follow-upMri resultsReasonCommentsFollow-upLt achilles Care Teams (unrecognized sec tion and content) Team Status: Active Member Role Status Dates Jack Ortega DO Primary Care Provider Active Team Status: Inactive Member Role Status Dates Jack Ortega DO Primary Care Provider, Attending Pr ovider Active Team Status: Inactive Member Role Status Jack Ortega DO Primary Care Provider Active Sandie Luther , MDAttending ProviderActive Team Status: Inactive Member Role Status Nataliia Ortega DO Primary Care Provider Active Geo Ray , DOAttending ProviderActiveTeam MemberRelationship SpecialtyStart DateEnd [facility] Jack Ortega, DO [address] [facility] [place] [address] PCP - GeneralInternal Ccabjvrx44/24/22 [facility] [address] [address] ReferringGastroenterology09/05/21Team MemberRelationshipSpecialtyStart DateEnd Date Jack Ortega, DO [address] [facility] [place] [address] PCP - GeneralInternal Priyywot95/24/[address] [place] [address] ReferringGastroenterology09/05/21Team MemberRelationshipSpecialtyStart DateEnd Date Jack Ortega, DO [address] [facility] [place] [address] PCP - GeneralInternal Sivyeqnk06/24/22 [facility] [address] [address] ReferringGastroenterology09/05/21Team MemberRelationshipSpecialtyStart DateEnd [facility] Jack Ortega, DO [address] [facility] [place] [address] PCP - GeneralInternal Giruhqzf81/24/[address] [address] ReferringGastroenterology09/05/21 Team Status: Inactive Member Role Status Dates Jack Ortega DO Primary Care Provider Active NON STAFFAttending ProviderActiveTeam MemberRelationshipSpecialtyStart DateEnd Jack Olmedo DO [address] [place] [address] PCP - GeneralInternal Tkhpxqaw94/24/22 Alvino Rudolph [address] [address] ReferringGastroenterology09/05/21Team MemberRelationshipSpecialtyStart DateEnd Date Jack Ortega DO [address] [place] [address] PCP - GeneralInternal Iaujtket00/24/22 Alvino Rudolph MD [address] [address] ReferringGastroenterology09/05/21 Team Status: Inactive Member Role Status Dates Jack Ortega DO Primary Care Provide r, Attending Provider Active Start: September 04, 2023 End: September 04, 2023 Team Status: Inactive Member Role Status Dates Jack Ortega DO Primary Care Provider Active Start: November 13, 2023 End: November 13, 2023Gekyara Agarwal MDAttradha ProviderActive Start: November 13, 2023 End: November 13, 2023 Team Status: Inactive Member Role Status Dates Jack Ortega DO Primary Care Provider Active Start: November 25, 2023 End: November 25, 2023GeClaudia Whitley ProviderActive Start: November 25, 2023 End: November 25, 2023 Team Status: Inactive Member Role Status Dates Jack Ortega DO Primary Care Provider Active Start: November 27, 2023 End: November 27, 2023Gekyara Agarwal MDAttending ProviderActive Start: November 27, 2023 End: November 27, 2023 Team Status: Active Member Role Status Dates Jack Ortega DO Primary Care Provider Active Start: November 27, 2023 Claudia Nunez Provider, Other ProviderActiveStart: November 27, 2023 Team MemberRelationshipSpecialtyStart DateEnd Date Jack Ortega DO [address] [place] [address] PCP - GeneralInternal Ulmlzrlp43/24/22 Alvino Rudolph MD [address] [place] [address] ReferringUniversity [facility] Health09/05/21Team MemberRelationshipSpecialtyStart DateEnd Date Jack Ortega DO [address] [place] [address] PCP - GeneralInternal Yodompta43/24/22 Alvino Rudolph MD [address] [place] [address] ReferringUniversity Of [facility] Health09/05/21 Team Status: Inactive Member Role Status Dates Jack Ortega DO Primary Care Provide r, Attending Provider Active Start: December 23, 2023 End: December 23, 2023 Team Status: Inactive Member Role Status Dates Jack Ortega DO Primary Care Provide r, Referring Provider Active Start: December 26, 2023 End: December 26, 2023TannerorClaudia Salcedo ProviderActive Start: December 26, 2023 End: December 26, 2023 Team Status: Inactive Member Role Status Dates Jack Ortega DO Primary Care Provide r, Attending Provider Active Start: December 31, 2023 End: December 31, 2023Team MemberRelationshipSpecialtyStart DateEnd Date Jack Ortega MD [address] [place] [address] PCP - GeneralInternal Medicine07/10/23Team MemberRelationshipSpecialtyStart Date End Date Jack Ortega MD [address] [place] [place] [address] PCP - GeneralInternal Medicine07/10/23Team MemberRelationshipSpecialtyStart Date End Date Jack Ortega MD [address] [place] [facility] [place] [address] PCP - GeneralInternal Medicine07/10/23Team MemberRelationshipSpecialtyStart Date End Date Jack Ortega MD [address] [place] [address] PCP - GeneralInternal Medicine07/10/23Team MemberRelationshipSpecialtyStart Date End Date Jack Ortega MD [address] [place] [address] PCP - GeneralInternal Medicine07/10/23Team MemberRelationshipSpecialtyStart Date End Date Jack Ortega MD [address] [place] [address] PCP - GeneralInternal Medicine07/10/23Team MemberRelationshipSpecialtyStart Date End Date Jack Ortega MD [address] [place] [address] PCP - GeneralInternal Medicine07/10/23Team MemberRelationshipSpecialtyStart Date End Date Jack Ortega MD PCP - GeneralInternal Medicine07/10/23Team MemberRelationshipSpecialtyStart Date End Date Jack Ortega MD PCP - GeneralInternal Medicine07/10/23 Team Status: Inactive Member Role Status Dates Jack Ortega DO Primary Care Provider Active Start: August 21, 2024 End: August 21enmayte Ortega DOAttending ProviderActiveStart: August 21, 2024 End: August 21, 2024 Team Status: Inactive Member Role Status Dates Jack Ortega DO Primary Care Provider Active Start: September 23, 2024 End: September 23, 2024Gita Valentin APRN [employer]-CAttending ProviderActive Start: September 23, 2024 End: September 23, 2024 Team Status: Inactive Member Role Status Dates Jack Ortega DO Primary Care Provider Active Start: September 29, 2024 End: September 29, 2024Leslye Cline APRN-FNP-CAttending ProviderActiveStart: September 29, 2024 End: September 29, 2024 Team Status: Inactive Member Role Status Dates Jack Ortega DO Primary Care Provider Active Start: October 07, 2024 End: October 07enmayte Ortega DOAttending ProviderActiveStart: October 07, 2024 End: October 07, 2024Team MemberRelationshipSpecialtyStart DateEnd Date Jack Ortega DO PCP - GeneralInternal Medicine07/10/23Team MemberRelationshipSpecialtyStart Date End Date Jack Ortega DO PCP - GeneralInternal Medicine07/10/23Team MemberRelationshipSpecialtyStart Date End Date Jack Ortega DO [address] [place] [address] PCP - GeneralInternal Medicine07/10/23Team MemberRelationshipSpecialtyStart Date End Date Jack Ortega, DO [address] [place] [address] PCP - GeneralInternal Medicine07/10/23Team MemberRelationshipSpecialtyStart Date End Date Jack Ortega DO [address] [place] [address] PCP - GeneralInternal Medicine07/10/23Team MemberRelationshipSpecialtyStart Date End Date Jack Ortega DO [address] [place] [place] [address] PCP - GeneralInternal Medicine07/10/23Team MemberRelationshipSpecialtyStart Date End Date Jack Ortega DO [address] [facility] [place] [address] PCP - GeneralInternal Gagxwsse75/24/22 Alvino Rudolph MD [address] [place] [address] ReferringVtstroenterology09/05/21Team MemberRelationshipSpecialtyStart DateEnd Date Jack Ortega DO [address] [place] [address] PCP - GeneralInternal Medicine07/10/23Team MemberRelationshipSpecialtyStart Date End Date Jack Ortega DO [address] [place] [address] PCP - GeneralInternal Medicine07/10/23Team MemberRelationshipSpecialtyStart Date End Date Jack Ortega, DO [address] [place] [address] PCP - GeneralInternal Medicine07/10/23Team MemberRelationshipSpecialtyStart Date End Date Jack Ortega, DO [address] [place] [address] PCP - GeneralInternal Medicine07/10/23Team MemberRelationshipSpecialtyStart Date End Date Jack Ortega DO [address] [place] [address] PCP - GeneralInternal Medicine07/10/23Team MemberRelationshipSpecialtyStart Date End Date Jack Ortega, DO [address] [place] [address] PCP - GeneralInternal Medicine07/10/23Team MemberRelationshipSpecialtyStart Date End Date Jack Ortega, DO [address] [place] [facility] [place] [address] PCP - GeneralInternal Medicine07/10/23Team MemberRelationshipSpecialtyStart Date End Date Jack Ortega, DO [address] [place] [address] PCP - GeneralInternal Medicine07/10/23Team MemberRelationshipSpecialtyStart Date End Date Jack Ortega, DO [address] [place] [address] [facility] - [facility]07/10/23Team MemberRelationshipSpecialtyStart Date End Date Jack Ortega DO [address] [place] [address] [facility] - [facility]07/10/23 Team Status: Inactive Member Role Status Dates Jack Ortega DO Primary Care Provider Active Start: December 23, 2024 End: December 23bi Ortega DOAttending ProviderActiveStart: December 23, 2024 End: December 23, 2024 Team Status: Active Member Role/Relationship Status Dates Jack Ortega DO Primary Care Provider Active Team Status: Inactive Member Role/Relationship Status Dates Jack Ortega DO Primary Care Provider Active Start: October 07, 2024 End: October 07enmayte Ortega DOAttending ProviderActiveStart: October 07, 2024 End: October 07, 2024 Team Status: Inactive Member Role/Relationship Status Dates Jack Ortega DO Primary Care Provider Active Start: December 23, 2024 End: December 23enmayte Ortega DOAttending ProviderActiveStart: December 23, 2024 End: December 23, 2024 Team Status: Inactive Member Role/Relationship Status Dates Jakc Ortega DO Primary Care Provider Active Start: December 29, 2024 End: December 29, 2024Gregory Diehl DPMAttending ProviderActiveStart: December 29, 2024 End: December 29, 2024Team MemberRelationshipSpecialtyStart DateEnd Date Jack Ortega DO [address] [place] [address] PCP - [facility]07/10/23Team MemberRelationshipSpecialtyStart Date End Date Jack Ortega DO [address] [place] [address] PCP - GeneralInternal Medicine07/10/23 Team Status: Inactive Member Role/Relationship Status Dates Jack Ortega DO Primary Care Provider Active Start: December 23, 2024 End: December 23bi Ortega DOAttending ProviderActiveStart: December 23, 2024 End: December 23, 2024 Team Status: Inactive Member Role/Relationship Status Dates Jack Ortega DO Primary Care Provider Active Start: December 29, 2024 End: December 29, 2024Gregory Diehl DPMAttending ProviderActiveStart: December 29, 2024 End: December 29, 2024 Team Status: Inactive Member Role/Relationship Status Dates Jack Ortega DO Primary Care Provider Active Start: January 06, 2025 End: January 06, 2025Geortanner Agarwal MDAttending ProviderActive Start: January 06, 2025 End: January 06, 2025Team MemberRelationshipSpecialtyStart DateEnd Date Jack Ortega DO [address] [place] [address] [facility]07/10/23Team MemberRelationshipSpecialtyStart Date End Date Jack Ortega DO [address] [place] [address] [facility]07/10/23Team MemberRelationshipSpecialtyStart Date End Date Jack Ortega DO [address] [place] [address] PCP - GeneralInternal Medicine07/10/23 Goals (unrecognized section and content) Goals may be documented in a n alternate section Source Comments (unrecognize d section and content) In the event this informatio n is protected by the Federal Confidentiality of Alcohol and Drug Abuse Patient Records regulations: The Federal rules restrict any use of the information to criminally investigate or prosecute any alcohol or drug abuse patient.[facility] HospitalIn the event this information is protected by the Federal Confidentiality of Alcohol and Drug Abuse Patient Records regulations: The Federal rules restrict any use of the information to criminally investigate or prosecute any alcohol or drug abuse patient.[facility] HospitalIn the event this information is protected by the Federal Confidentiality of Alcohol and Drug Abuse Patient Records regulations: The Federal rules restrict any use of the information to criminally investigate or prosecute any alcohol or drug abuse patient.[facility] HospitalIn the event this information is protected by the Federal Confidentiality of Alcohol and Drug Abuse Patient Records regulations: The Federal rules restrict any use of the information to criminally investigate or prosecute any alcohol or drug abuse patient.[facility] HospitalIn the event this information is protected by the Federal Confidentiality of Alcohol and Drug Abuse Patient Records regulations: The Federal rules restrict any use of the information to criminally investigate or prosecute any alcohol or drug abuse patient.[facility] HospitalIn the event this information is protected by the Federal Confidentiality of Alcohol and Drug Abuse Patient Records regulations: The Federal rules restrict any use of the information to criminally investigate or prosecute any alcohol or drug abuse patient.[facility] HospitalIn the event this information is protected by the Federal Confidentiality of Alcohol and Drug Abuse Patient Records regulations: The Federal rules restrict any use of the information to criminally investigate or prosecute any alcohol or drug abuse patient.[facility] HospitalIn the event this information is protected by the Federal Confidentiality of Alcohol and Drug Abuse Patient Records regulations: The Federal rules restrict any use of the information to criminally investigate or prosecute any alcohol or drug abuse patient.[facility] HospitalIn the event this information is protected by the Federal Confidentiality of Alcohol and Drug Abuse Patient Records regulations: The Federal rules restrict any use of the information to criminally investigate or prosecute any alcohol or drug abuse patient.[facility] HospitalIn the event this information is protected by the Federal Confidentiality of Alcohol and Drug Abuse Patient Records regulations: The Federal rules restrict any use of the information to criminally investigate or prosecute any alcohol or drug abuse patient.[facility] HospitalIn the event this information is protected by the Federal Confidentiality of Alcohol and Drug Abuse Patient Records regulations: The Federal rules restrict any use of the information to criminally investigate or prosecute any alcohol or drug abuse patient.[facility] HospitalIn the event this information is protected by the Federal Confidentiality of Alcohol and Drug Abuse Patient Records regulations: The Federal rules restrict any use of the information to criminally investigate or prosecute any alcohol or drug abuse patient.[facility] HospitalIn the event this information is protected by the Federal Confidentiality of Alcohol and Drug Abuse Patient Records regulations: The Federal rules restrict any use of the information to criminally investigate or prosecute any alcohol or drug abuse patient.[facility] Hospital[facility] the event this information is protected by the Federal Confidentiality of Alcohol and Drug Abuse Patient Records regulations: The Federal rules restrict any use of the information to criminally investigate or prosecute any alcohol or drug abuse patient.[facility] (unrecognized sect ion and content) No Status Records FoundNo Status Records FoundNo Status Records FoundNo Status Records FoundNo Status Records FoundNo Status Records FoundNo Status Records FoundNo Status Records Found INFORMATION SOURCE (unrecogn ized section and content) DATE CREATED AUTHOR 03/03/2022 [facility] DATE CREATED AUTHOR AUTHOR'S ORGANIZ ATION 08/18/2022 [facility] DATE CREATED AUTHOR AUTHOR'S ORGANIZ ATION 09/05/2022 [facility] DATE CREATED AUTHOR AUTHOR'S ORGANIZ ATION 04/27/2024 [facility] DATE CREATED AUTHOR AUTHOR'S ORGANIZ ATION 06/04/2024 [facility] DATE CREATED AUTHOR AUTHOR'S ORGANIZ ATION 11/21/2024 [facility] DATE CREATED AUTHOR AUTHOR'S ORGANIZ ATION 12/30/2024 [facility] DATE CREATED AUTHOR AUTHOR'S ORGANIZ ATION 01/19/2025 [facility] EPIC FOR RECORDS PERTAINING TO PATIENTS WHO ARE [...] BE BASED ON THE PRIMARY CLINICAL RECORDS. [facility], [facility]. provides no warranty or guarantee of the accuracy or completeness of information in this document.
[2025-02-01 08:49] LABS: Glucose Urine UA NEGATIVE (NEGATIVE)
[2025-02-01 09:21] LABS: Cast Seen? NONE SEEN #/LPF (NONE SEEN); Crystals Seen? None Seen #/HPF (None Seen); Urine Culture Indicated NO
[2025-02-01] MEDS: METRONIDAZOLE/SODIUM CHLORIDE 500 MG/100 ML PREMIX 100 MG IV (09:36)
[2025-02-01] MEDS: HYDROCODONE/ACET 5-325 MG TABLET 1 TAB PO (09:52)
[2025-02-01] MEDS: CIPROFLOXACIN IN 5 % DEXTROSE 400 MG/200 ML PREMIX 200 MG IV (10:34)
== END 2025-02-01 11:37 | disposition home or self-care (01) ==
PROVIDERS: Emergency Provider Emergency Medicine; PCP Internal Medicine
DX: K52.9 Noninfective gastroenteritis and colitis, unspecified (principal); K57.90 Diverticulosis of intestine, part unspecified, without perforation or abscess without bleeding
CPT/HCPCS: 36415; 74177; 80048; 80076; 81001; 82150; 83690; 85025; 93005; 96361; 96365; 96366; 96368; 96375; 96376; 99285; J0744; J1836; J2270; J2405; Q9967

== ENCOUNTER 2025-02-09 09:51 | Outpatient (OUT) | payer BC, SELFPAY ==
--- OUTSIDE RECORDS SUMMARY | 2025-01-26 16:40 | XMS_ITS | Encounter Summary ---
Author Organization [facility] Address [address] [place] [address] Care Team Providers Care Compensation Specialist Name Role Phone Jack Collins Primary Care Provider [phone] Reason for Visit * ReasonCommentsCasting For Braces Or OrthoticsOrthotic scanConsent Or Instructionspreop Encounter Details DateTypeDepartmentCare Team (Latest Contact Info)Oncnbuqoytk17/18/2025 4:40 PM ESTOffice Visit [facility] [address] [place] [phone] Gregory Jose DPM [address] [address] Left Achilles tendinitis (Primary Dx); [...] Assigned at BirthMale 04/29/2024 2:06 PM ESTLegal XrwHztr5005/23/2022 7:00 PM EDTGender IdentityMale 04/29/2024 2:06 PM ESTSexual EijalmijxekZrshsepo09/19/2025 2:06 PM ESTdocumented as of this encounter Last Filed Vital Signs Vital SignReadingTime TakenCommentsBlood Pressure--Pulse--Temperature-- Respiratory Rekm428203/28/2024 4:38 PM ESTOxygen Saturation--Inhaled Oxygen Concentration--Okqcni51.7 kg (211 lb)01/26/2025 4:38 PM BEOEnttza797 cm (6' 2 ) 01/26/2025 4:38 PM [...] right advanced flatfoot deformity and uses a [place] brace Pt also has left PT tendonitis [...] Food Insecurity (06/20/2022) Received from [facility] Hunger Screening Within the past 12 [...] tendon into retrocalcaneal bursa with negative palpable [place] MRI: PAST MR ankle left wo IV contrast Narrative: [facility] Main [place] [address] [place] [address] MRI Report Signed Patient: Black Dumont MR#: [id number] : 1975 Acct:[id number] Age/Sex: 49 / M ADM Date: 12/29/24 Loc: [facility] Room: Type: [facility] Attending Dr: [...] Pereyra M.D. 12/29/2024 5:15 PM Dictation Location: [place] [address] Transcribed By: [facility] 12/29/241714 Dictated By: Maurice Pereyra II, [...] risks, alternatives, benefits, post op complications and [facility] expectations were discussed including but not limited to: infection,bone infection,wound dehiscence hardware failure and irritation,wound dehiscence,delay union/mal union/non union of bone. RSDS,neuroma,duty limitations,DVT/PE, [place],nerve damage, scar, loss of sensation, swelling. Pt [...] Plan of Treatment DateTypeDepartmentCare Team (Latest Contact Info)Lihboqfrphx66/03/2025 3:20 PM ESTOffice Visit [facility] [address] [place] [address] Gregory Jose DPM [address] [address] documented as of this encounter Visit Diagnoses Diagnosis Left Achilles tendinitis- Primary Contracture of left ankle Posterior tibial tendonitis of right leg Contracture of right ankle Achilles tendon tear, left, initial encounter Contracture of left ankle- Primary Left Achilles tendinitis documented in this encounter Care Teams Team MemberRelationshipSpecialtyStart DateEnd Date Jack Collins DO [address] [place] [address] PCP - GeneralInternal Medicine07/10/23documented as of this encounter
--- OUTSIDE RECORDS SUMMARY | 2025-02-08 11:00 | XMS_ITS | Encounter Summary ---
Author Organization [facility] Address [address] [place] [address] Care Team Providers Care Web Administrator Name Role Phone Alvino Rudolph MD Unavailable [phone] Jack Collins DO Primary Care Provider [phone] Source Comments In the event this information is protected by the Federal Confidentiality of Alcohol and Drug AbusePatient Records regulations: The Federal rules restrict any use of the information to criminally investigate or prosecute any alcohol or drug abuse patient.[facility] Reason for Referral * Outpatient Procedure (Routine) - Pending ReviewSpecialtyDiagnoses / Procedures Referred By [facility]Ref[facility] Diagnoses Abnormal CT scan, colon Blood per rectum Lower abdominal pain Procedures COLONOSCOPY DIAGNOSTIC COLONOSCOPY FLX DX W/COLLJ SPEC WHEN PFRMD Teofilo Lyman, INSPECTOR EYEGLASS FRAMES.REPAIRER WELDING EQUIPMENT [address] [place] [address] Phone: tel: fax: [facility] [address] [place] [address] Referral IDStatusReasonStart DateExpiration DateVisits RequestedVisits [id number] Review Auto-Generated Referral / Reason for Visit * ReasonCommentsConstipation Encounter Details DateTypeDepartmentCare Team (Latest Contact Info)Rflvewvxqxe75/01/2025 11:00 AM [facility] [address] [place] [address] Teofilo Lyman APRN.REPAIRER [employer]MENT [address] [place] [address] scan, colon (Primary Dx); Blood per rectum; Lower abdominal pain; Irritable bowel syndrome with constipation Social History Tobacco UseTypesPacks/DayYears UsedDateSmoking Tobacco: NeverSmokeless Tobacco: NeverAlcohol UseStandard Drinks/WeekCommentsNot Currently0 (1 standard drink = 0.6 oz pure alcohol)AUDIT-CAnswerDate RecordedQ1: How often do you have a drink containing alcohol?Never11/19/2024verage Number of DrinksNot on file11/19/2024 Frequency of Binge DrinkingNot on file11/19/2024rea Deprivation IndexAnswerDate RecordedNational Score (1-100), lower number is lower mefo221612/16/2023State Score (1-10), lower number is lower [id number] from: https://www.neighborhoodatlas.medicine.[facility].edu/. Last address used for bmptzuenjbs[address]12/16/2023Sex and Gender InformationValueDate Recorded Sex Assigned at BndbdAcho93/02/2023 11:53 PM ESTLegal EweFhxl8909/05/2021 2:10 PM EDTGender HotvepywAryb42/02/2023 11:53 PM ESTSexual OrientationStraight 03/12/2022 11:53 PM ESTdocumented as of this encounter Patient Instructions * Patient Instructions* Teofilo Lyman APRN.CNP - 02/08/2025 11:34 AM EST Colonoscopy NOG- 2 day prep. Hold Trulicity for 1-2 weeks prior. Start 145mcg Linzess once diarrhea from antibiotics resolves documented in this encounter Progress Notes * Teofilo Lyman APRN.NIEVES - 02/08/2025 11:08 AM EST VIRTUAL VISIT FOLLOW UP I have communicated my name and active licensure. The patient's identity and physical location wereverified at the time of this visit. Either the patient or their legal front desk representative has been informed of the risks and benefits of -- and alternatives to IBS-C treatment through a remote evaluation and consents to proceed with the evaluation remotely. I had a virtual visit with Mr. Dumont today for follow up of IBS-C. UPDATED HISTORY: LS 11/19/24: IBS, GERD. Constipation on Trulicity. Plan was for daily Miralax, mg citrate cleanse. 40mg omep with Pepcid. Consider Linzess if failing Miralax. Colon due 2027. He did not respond well to the Miralax. He took the Miralax for 2-3 weeks daily. Not helpful at all. Docusate helped a little. ED with [facility] [address] CTAP: Segments of apparent colonic wall thickening. May be from under distention. Colon decompression present. Small amount of fluid. No diverticular disease. Normal appendix. He would like to move forward with a colonoscopy. He is having small daily bms. Loose. He is taking antibiotics- cipro and flagyl from the ED. He had a small amount of BRBPR at the ED. Larger volume. Pain was crampy, below umbilicus. More into the LLQ but mostly midline. Into the lower back. Still having pain. More pain than usual. No significant dehydration leading to this. He did have an episode of vomiting with the pain. Feels full in the rectum and lower abdomen. No past medical history on file. PAST SURGICAL HISTORY Procedure Laterality Date CHOLECYSTECTOMY COLONOSCOPY 2022 EGD DIAGNOSTIC 2022 HERNIA REPAIR HX FAMILY HISTORY Problem Relation Age of Onset Colon Cancer Father Social History[1] Current Outpatient Medications Medication Sig Dispense Refill [...] SUBCUTANEOUSLY ONCE EVERY WEEK FOR 90 DAYS polyethylene glycol 3350 (MIRALAX) 17 gram/dose powder Take 17 g by mouth once daily. Dissolve dosein 4 - 8 ounces of liquid and take as directed. 1530 g 3 omeprazole (PRILOSEC) 40 mg capsule Take 1 capsule by mouth once daily. 90 capsule 3 glucagon (GLUCAGEN) 1 mg/mL injection Inject 1 [...] current facility-administered medications for this visit. Allergies Allergen Reactions Codeine GI Upset, Hives, Intolerance, Itching and Rash REVIEW OF SYSTEMS: PAIN ASSESSMENT: Negative for pain, history of chronic pain, or current treatment for a chronic pain condition. GENERAL: No weight loss, malaise or fevers RESPIRATORY: Negative for cough, hemoptysis, wheezing, COPD, dyspnea or shortness of breath CARDIOVASCULAR: Negative for chest pain, leg swelling, hypertension, CHF or palpitations GI: See above PHYSICAL FINDINGS OF NOTE: BMI 26.25 General - Normal, healthy, cooperative, in no acute distress Able to interact verbally by video conference Psych - ORIENTATION: normal to time place, person and situation Mood/Affect: AFFECT AND MOOD: Normal Head/Neuro - Normal size and shape Facial appearance normal Pulmonary - respiratory effort normal IMPRESSION 49 y/o male presents for follow up. Acute on chronic lower abdominal pain sent him to the ED about 1 week ago where he had a CTAP reportedly finding segments of colitis vs colonic under distention. He was put on cipro and flagyl and has mild diarrhea on the antibiotics. He does note an episode of rectal bleeding which was somewhat heavy. Pain has improved somewhat with time but persists in the lower abdomen. Last colonoscopy 3 years ago was limited by a fiar prep but found 1 small TA polyp and L sided tics. Neg bx for colitis. No diverticulitis seen on the CT scan. Also of note is a failure of 1 weeks of daily Miralax for constipation. RECOMMENDATION: Colonoscopy NOG- 2 day prep. Hold Trulicity for 1-2 weeks prior. Start 145mcg Linzess once diarrhea from antibiotics resolves I spent more than 20 minutes ejmv-vb-ccie with the patient and over half the time was devoted to counseling and/or coordination of care. Teofilo Lyman APRN.NIEVES [1] Social History Tobacco Use Smoking status: Never Smokeless tobacco: Never Vaping Use Vaping status: Never Used Substance Use Topics Alcohol use: Not Currently Drug use: Not Currently documented in this encounter Plan of Treatment DateTypeDepartmentCare Team (Latest Contact Info)Kncxhqcpgaf76/01/2025 11:59 PM ESTAnesthesia Event Ambulatory Surgery [id number] [place], [place] [id number] Zohra Bowen APRN.CUSTOMER PROFESSIONAL [address] [id number] 02/16/2025 2:15 PM ESTAppointment Ambulatory Surgery [address] [place] [address] Jaspal Gó[place] [address] [place], [place] [id number] Abnormal CT scan, colon [R93.3]NameTypePriorityAssociated DiagnosesOrder ScheduleCOLONOSCOPY DIAGNOSTICEndoscopyRoutine Abnormal CT scan, colon Blood per rectum Lower abdominal pain 1 Occurrences starting 02/08/2025 until 02/08/2026documented as of this encounter Visit Diagnoses Diagnosis Abnormal CT scan, colon- Primary Nonspecific (abnormal) findings on radiological and other examination of gastrointestinal tract Blood per rectum Hemorrhage of rectum and anus Lower abdominal pain Abdominal pain, other specified site Irritable bowel syndrome with constipation Irritable bowel syndrome documented in this encounter Care Teams Team MemberRelationshipSpecialtyStart DateEnd Date Jack Collins DO [address] [facility] [place] [address] PCP - GeneralInternal Lcbidmse47/24/22 Alvino Rudolph MD [address] [facility] [address] [place] [address] ReferringGastroenterology09/05/21documented as of this encounter
--- OUTSIDE RECORDS SUMMARY | 2025-02-09 09:55 | XMS_ITS | Encounter Summary ---
Author Organization [facility] Address [address] [place] [address] Care Team Providers Care Warehouse Order Filler Name Role Phone DennisJack Sofia SINGH Primary Care Provider [phone] Encounter Details DateTypeDepartmentCare Team (Latest Contact Info)Kbvwmdadqvv14/18/2025External Result Encounter [facility] External Department Unsolicited Gregory Jose DPM [address] [address] Social History Tobacco UseTypesPacks/DayYears UsedDateSmoking Tobacco: NeverSmokeless [...] Assigned at BirthMale 04/29/20[birth year] 2:06 PM ESTLegal AkzYtew5805/23/2022 7:00 PM EDTGender IdentityMale 04/29/2024 2:06 PM ESTSexual MgikvbktsprSgspkwpp75/19/2025 2:06 PM ESTdocumented as of this encounter Plan of Treatment DateTypeDepartmentCare Team (Latest Contact Info)Ptledhdobjq10/03/2025 3:20 PM ESTOffice Visit [facility] [address] [place] [address] Gregory Jose, DPM [address] [address] documented as of this encounter Procedures Procedure NamePriorityDate/TimeAssociated DiagnosisCommentsCBC WITH AUTO HVGOUCQKJFHXDezguls09/18/2025 3:35 PM EST documented in this encounter Results * CBC auto differential (01/26/2025 3:35 PM EST)ComponentValueRef RangeTest MethodAnalysis TimePerformed AtPathologist SignatureWBC6.74.1 - 10.5 [CFU]/mL 01/26/2025 5:04 PM [facility] CtrUNCORRECTED WHITE BLOOD COUNT6.74.1 - 10.5 10*3/uL01/26/2025 5:04 PM [facility] RBC4.683.90 - 5.60 10*6/uL01/26/2025 5:04 PM [facility] RCWSXUPRVE90.913.0 - 17.0 g/dL01/26/2025 5:04 PM [facility] PvfGMTDXJGWRY32.638.8 - 50.0 %01/26/2025 5:04 PM [facility] DvxSTW71.683.5 - 101 fL01/26/2025 5:04 PM [facility] RexMSU68.727.5 - 35.2 pg01/26/2025 5:04 PM [facility] SwhRXVS51.332.5 - 35.6 g/dL01/26/2025 5:04 PM [facility] CtrRED CELL DISTRIBUTION WIDTH, RDW13.712.0 - 14.8 %01/26/2025 5:04 PM [facility] CtrPLATELET [id number] - 450 10*3/uL01/26/2025 5:04 PM [facility] CtrMEAN PLATELET VOLUME, MPV8.86.6 - 10.1 fL01/26/2025 5:04 PM [facility] CtrNEUTROPHILS, %54.3. %01/26/2025 5:04 PM [facility] CtrLYMPHOCYTES, %33.2. % 01/26/2025 5:04 PM [facility] CtrMONOCYTE/MACROPHAGE, %7.6. %01/26/2025 5:04 PM [facility] CtrEOSINOPHILS, %4.4. % 01/26/2025 5:04 PM [facility] CtrBASOPHILS, %0.5. % 01/26/2025 5:04 PM [facility] CtrNRBC0.10 - 0.5 /100{WBC} 01/26/2025 5:04 PM [facility] CtrNEUTROPHILS3.71.8 - 7.7 10*3/uL01/26/2025 5:04 PM [facility] CtrLYMPHOCYTES2.21.00 - 4.8 10*3/uL01/26/2025 5:04 PM [facility] CtrMONOCYTES0.5 0.0 - 0.8 10*3/uL01/26/2025 5:04 PM [facility] EOSINOPHILS0.30.0 - 0.45 10*3/uL01/26/2025 5:04 PM [facility] CtrBASOPHILS0.00.0 - 0.2 10*3/uL01/26/2025 5:04 PM [facility] CtrSpecimen (Source)Anatomical Location / Laterality Collection Method / VolumeCollection TimeReceived TimeBlood (Blood)01/26/2025 3:35 PM EST01/26/2025 3:36 PM EST Narrative Authorizing ProviderResult TypeResult StatusNicholmarvel Jose DPMLAB BLOOD ORDERABLESFinal ResultPerforming OrganizationAddressCity/State/ZIP CodePhone Number [facility] [address] [place] [address], [facility] [address] [place] [address] documented in this encounter Visit Diagnoses Not on filedocumented in this encounter Care Teams Team MemberRelationshipSpecialtyStart DateEnd Date Jack Collins DO [address] [place] [id number] PCP - GeneralInternal Medicine07/10/23documented as of this encounter
--- OUTSIDE RECORDS SUMMARY | 2025-02-09 09:55 | XMS_ITS | Clinical Summary ---
Author Organization [facility] Address [address] [place] [address] Care Team Providers Care Double Needle Operator Lockstitch Name Role Phone Jack Collins Primary Care Provider [phone] Allergies Active AllergyReactionsCriticalityNoted DateCommentsCodeineHives,Itching,RashLow 12/10/2022 Medications MedicationSigDispense [...] (Imdur) 30 MG 24 hr tablet Every gzbylaq4111/13/2023ctive metoprolol succinate XL (Toprol-XL) 25 MG 24 hr tablet Daily at dwrfwtw8911/25/2023ctive sildenafil (Viagra) 100 MG tablet Daily07/10/2023ctive Ubrogepant [...] skin every 30 (thirty) days 1 mL 11004/06/790828/6Active methylPREDNISolone (Medrol Dospak) 4 MG tablets Indications:Other [...] currently. We will continue to monitor clinically. Bnekdx5207/08/2023 Overview (07/08/2023): It is my impression that the patient has ataxia and gait imbalance with abnormal xpzyhj-xy-kqlp testing. Along with his cognitive complaints, headaches and visual disturbance and concern for multifocal intracranial pathology to explain symptoms. He would be the proper age for concern such as multiple sclerosis which have not correctly identified and treated to be debilitating or life-threatening. . Plan: MRI of the brain with and without contrast DDD (degenerative disc disease), cxthuwhg30/29/2024 Overview (07/08/2023): The patient does have degenerative disc disease of the cervical spine this is confirmed with EMG and MRI in 2020. This would explain neck pain which radiates into the arms. . PLAN: - Close follow-up with pain management Xexznsuu85/29/2024 Overview (07/08/2023): It is my impression that [...] - Ubrelvy and Nurtec were ineffective Daytime givditifmbyraar05/29/2024 Overview (07/08/2023): Patient reports ongoing difficulty sleeping [...] beneficial from a migraine standpoint as well) Xkqxmxcvoun08/29/2024rimary csglnzbe26/29/2024Malignant melanoma of left ear 07/08/2023 Overview (07/08/2023): Important clinical diagnosis. MRI of the brain September of 2021 was unremarkable. Encounters DateTypeDepartmentCare EnvqUuzazvtmcov35/26/2025bstract [facility] [address] [facility] [address] [place] [address] Gregory Jose DPM 02/03/20259011Uczihi54/24/2025bstract [facility] [address] [facility] [address] [place] [address] Gregory Jose DPM 01/26/2025 4:40 PM ESTOffice Visit [facility] [address] [place] [address] Gregory Jose DPM Left Achilles tendinitis (Primary Dx); Contracture of left ankle; Posterior tibial tendonitis of right leg; Contracture of right ankle; Achilles tendon tear, left, initial ektjkdozr42/18/2025External Result Encounter N[facility] External Department Unsolicited Gregory Jose DPM 01/26/2025External Result Encounter NOMS External Department Unsolicited Gregory Jose DPM 01/26/2025External Result Encounter NOMS External Department Unsolicited Gregory Jose DPM 01/26/2025bstract [facility] [address] [facility] [address] [place] [address] Gregory Jose DPM 01/26/2025bstract [facility] [address] [facility] [address] [place] [address] Gregory Jose DPM 01/26/2025amboo flowsheet [facility] [address] [place] [address] Gregory Jose DPM 01/25/2025Orders Only [facility] [address] [place] [address] Lidia Castro Preop sgljnekxrmz30/13/2524Awjgwh69/12/2025bstract [facility] [address] [facility] [address] [place] [address] Gregory Jose DPM 01/18/2025 4:30 PM ESTClinical Support [facility] [address] [place] [address] Gregory Jose, MER Other specified disorders of synovium, right ankle and foot (Primary Dx); Left Achilles tendinitis; Posterior tibial tendonitis of right leg; Contracture of left ankle; Contracture of right ankle01/18/2025Telephone [facility] [address] [facility] [address] [place] [address] Gregory Jose DPM Casting For Braces Or Oxppipmqd86/10/2025amboo flowsheet [facility] [address] [place] [address] Gregory Jose DPM 01/12/20258386Ubwcvr09/03/8076Hcgvqc04/29/2025 5:30 PM EDTTreatment [facility] [address] [place] [place] [address] Kelamando, Chanel, TEST BAKER Left Achilles tendinitis (Primary Dx)01/06/2025amboo flowsheet [facility] [address] [place] [address] Kelamando, Chanel, TEST BAKER 01/06/20257102Zixzbx16/27/2025 4:30 PM EDTOffice Visit [facility] [address] [place] [address] Gregory Jose DPM Other specified disorders of synovium, right ankle and foot (Primary Dx); Achilles tendon tear, left, initial encounter; Left Achilles tendinitis; Posterior tibial tendonitis of right leg; Contracture of left ankle; Contracture of right ankle01/04/2025 flowsheet [facility] [address] [place] [address] Gregory Jose DPM 12/30/20248892Swzxhl93/21/2025 5:30 PM EDTTreatment [facility] [address] [place] [address] Bandar Parr PTA Left Achilles tendinitis (Primary Dx)12/29/2024 flowsheet [facility] [address] [place] [address] Bandar Parr, TEST BAKER 12/29/20245734Elcsdy91/20/4446Lvdisw16/14/2025 5:30 PM EDTTreatment [facility] [address] [place] [address] Bandar Parr, TEST BAKER Left Achilles tendinitis (Primary Dx)12/22/2024 flowsheet [facility] [address] [place] [address] Bandar Parr, TEST BAKER 12/22/20245108Ssmdyf36/12/5048Qxoxhc24/07/2025 5:30 PM EDTTreatment [facility] [address] [place] [address] Bandra Parr TEST BAKER Left Achilles tendinitis (Primary Dx)12/15/2024amb flowsheet [facility] [address] [place] [address] Bandar Parr, TEST BAKER 12/15/20245724Utplxu80/02/2025 4:00 PM EDTOffice Visit [facility] [address] [place] [address] Gregory Jose DPM Achilles tendon tear, left, initial encounter (Primary Dx); Left Achilles tendinitis; Contracture of left ankle; Other specified disorders of synovium, right ankle and foot; Posterior tibial tendonitis of right leg12/10/2024amb flowsheet [facility] [address] [place] [address] [place] [address] Gregory Jose DPM 12/10/20242909Yfxlha63/30/2025 4:30 PM EDTTreatment [facility] [address] [place] [address] Bandar Parr, TEST BAKER Left Achilles tendinitis (Primary Dx)12/08/2024amboo flowsheet [facility] [address] [place] [address] Bandar Parr, TEST BAKER 12/08/20243318Awzylg67/29/9293Dmwzjr92/23/2025 4:30 PM EDTTreatment [facility] [address] [place] [address] Bandar Parr, TEST BAKER Left Achilles tendinitis (Primary Dx)12/01/2024amboo flowsheet [facility] [address] [place] [address] Bandar Parr, TEST BAKER 12/01/20244169Mkldpe26/17/2025Plan of Care Documentation [facility] [address] [place] [address] 11/24/2024 2:30 PM EDTEvaluation [facility] [address] [place] [address] Ilsa Pittman, PT Left Achilles hcawcwxyck23/16/2025amboo flowsheet [facility] [address] [place] [address] Ilsa Pittman, PT 11/24/20246794Aaxwzz48/11/20240789Igbqvk49/02/2025 2:00 PM EDTOffice Visit [facility] [address] [place] [address] Gregory Jose DPM Left Achilles tendinitis (Primary Dx); Contracture of left ankle; Other specified disorders of synovium, right ankle and foot; Posterior tibial tendonitis of right leg11/10/2024amboo flowsheet [facility] [address] [place] [address] Gregory Jose DPM from Last 3 Months Family History Medical HistoryRelationNameCommentsCancerFatherKenCoronary [...] Assigned at BirthMale 04/29/2024 2:06 PM ESTLegal RalNmrj2705/23/2022 7:00 PM EDTGender IdentityMale 04/29/2024 2:06 PM ESTSexual BdwgbgecgceYnmhimpt75/19/2025 2:06 PM EST Last Filed Vital Signs Vital SignReadingTime TakenCommentsBlood Qojgwkou477/78004/06/2024 8:16 AM EST Wxvlj251004/06/2024 8:16 AM ESTTemperature--Respiratory Zlhx826703/28/2024 4:38 PM ESTOxygen Juvujnqyyx29%04/06/2024 8:16 AM ESTInhaled Oxygen Concentration-- Xcxzlk91.7 kg (211 lb)01/26/2025 4:38 PM ERJMthgnt536 cm (6' 2 )01/26/2025 4:38 PM ESTBody Mass Index27.0901/26/2025 4:38 PM EST Plan of Treatment DateTypeDepartmentCare Team (Latest Contact Info)Jujtgswttez32/03/2025 3:20 PM ESTOffice Visit [facility] [address] [place] [address] Gregory Jose DPM [address] [address] Health MaintenanceDue DateLast DoneCommentsCT Xblsjwfyzdga03/09/1976FIT-DNA 1975FIT1975FOBT05/18/19752953Zjhwkezngkfyg85/09/1976COVID-19 Vaccine ( season)/, 02/11/2021, 04/13/2020, Additional history ruuhzwWpkduepdxlj45/03/203301/05/2022, 03/13/2022olorectal Cancer Drjkwxtqo85/03/2033Influenza PdmvfjdYfocvglva59/15/2025, 12/23/2023, 11/28/2022, Additional history existsPneumococcal Vaccine: Pediatrics (0 to 5 Years) and At- Risk Patients (6 to 64 Years)Aged OutNo longer eligible based on patient's age to complete this topic Procedures Procedure NamePriorityDate/TimeAssociated DiagnosisCommentsBASIC METABOLIC PANEL Nhrtfth7001/26/2025 3:35 PM EST CBC WITH AUTO SBGMRXRKQGVXMkcqoqv22/18/2025 3:35 PM EST ECG 12-LEAD01/26/2025 3:28 PM EST MR ANKLE LEFT WO IV MPTPAHIGWynsved42/21/2025 5:06 PM EDT Achilles tendon tear, left, initial encounter from Last 3 Months Results * CBC auto differential (01/26/2025 3:35 PM EST)ComponentValueRef RangeTest MethodAnalysis TimePerformed AtPathologist SignatureWBC6.74.1 - 10.5 [CFU]/mL 01/26/2025 5:04 PM [facility] CtrUNCORRECTED WHITE BLOOD COUNT6.74.1 - 10.5 10*3/uL01/26/2025 5:04 PM [facility] RBC4.683.90 - 5.60 10*6/uL01/26/2025 5:04 PM [facility] ALCAHYXRBQ96.913.0 - 17.0 g/dL01/26/2025 5:04 PM [facility] HlbZFGFMPGFFE31.638.8 - 50.0 %01/26/2025 5:04 PM [facility] GrtUIQ68.683.5 - 101 fL01/26/2025 5:04 PM [facility] BwpYKK62.727.5 - 35.2 pg01/26/2025 5:04 PM [facility] SklFSEV00.332.5 - 35.6 g/dL01/26/2025 5:04 PM [facility] CtrRED CELL DISTRIBUTION WIDTH, RDW13.712.0 - 14.8 %01/26/2025 5:04 PM [facility] CtrPLATELET XREWE157201 - 450 10*3/uL01/26/2025 5:04 PM [facility] CtrMEAN PLATELET VOLUME, MPV8.86.6 - 10.1 fL01/26/2025 5:04 PM [facility] CtrNEUTROPHILS, %54.3. %01/26/2025 5:04 PM [facility] CtrLYMPHOCYTES, %33.2. % 01/26/2025 5:04 PM [facility] CtrMONOCYTE/MACROPHAGE, %7.6. %01/26/2025 5:04 PM [facility] CtrEOSINOPHILS, %4.4. % 01/26/2025 5:04 PM [facility] CtrBASOPHILS, %0.5. % 01/26/2025 5:04 PM [facility] CtrNRBC0.10 - 0.5 /100{WBC} 01/26/2025 5:04 PM [facility] CtrNEUTROPHILS3.71.8 - 7.7 10*3/uL01/26/2025 5:04 PM [facility] CtrLYMPHOCYTES2.21.00 - 4.8 10*3/uL01/26/2025 5:04 PM [facility] CtrMONOCYTES0.5 0.0 - 0.8 10*3/uL01/26/2025 5:04 PM [facility] EOSINOPHILS0.30.0 - 0.45 10*3/uL01/26/2025 5:04 PM [facility] CtrBASOPHILS0.00.0 - 0.2 10*3/uL01/26/2025 5:04 PM [facility] CtrSpecimen (Source)Anatomical Location / Laterality Collection Method / VolumeCollection TimeReceived TimeBlood (Blood)01/26/2025 3:35 PM EST01/26/2025 3:36 PM EST Narrative Authorizing ProviderResult TypeResult StatusNicblanca Jose DPMLAB BLOOD ORDERABLESFinal ResultPerforming OrganizationAddressCity/State/ZIP CodePhone Number [facility] [address] [facility] [place] [address], [facility] [address] [place] [address] * (ABNORMAL) Basic metabolic panel (01/26/2025 3:35 PM EST)ComponentValueRef RangeTest MethodAnalysis TimePerformed AtPathologist LxjekumssUkpuoyg848(H)70 - 100 mg/dL01/26/2025 5:21 PM [facility] CtrComment: Random Glucose Reference Range is dependent on time and content of last meal. Glucose of more than 200 mg/dL in a nonstressed, ambulatory subject supports the diagnosis of Diabetes Mellitus. ADA recommended reference range WLX959 - 25 mg/dL01/26/2025 5:21 PM [facility] CtrCREATININE 0.820.70 - 1.30 mg/dL01/26/2025 5:21 PM [facility] ESTIMATED GFR>60. 5:21 PM [facility] EphUzmxlk220 136 - 145 mmol/L103/28/2024 5:21 PM [facility] CtrPotassium, Bld3.83.5 - 5.1 mmol/L103/28/2024 5:21 PM [facility] Rqytsbiy75212 - 107 mmol/L103/28/2024 5:21 PM [facility] Carbon Noffsmq47.7(H)21.0 - 31.0 mmol/L103/28/2024 5:21 PM [facility] CtrAnion Gap10.16.0 - 15. 5:21 PM [facility] CtrCalcium9.08.6 - 10.3 mg/dL01/26/2025 5:21 PM [facility] CtrSpecimen (Source)Anatomical Location / LateralityCollection Method / VolumeCollection TimeReceived TimeOtherTopography unknown / Xskpcgc4701/26/2025 3:35 PM EST01/26/2025 3:36 PM EST Narrative Authorizing ProviderResult TypeResult StatusNicblanca Jose DPMLAB BLOOD ORDERABLESFinal ResultPerforming OrganizationAddressCity/State/ZIP CodePhone Number [facility] [address] [place] [address], [facility] [address] [place] [address] * ECG 12 lead (01/26/2025 3:28 PM EST)Specimen (Source)Anatomical Location / LateralityCollection Method / VolumeCollection TimeReceived Time01/26/2025 3:28 PM EST Narrative [facility] - 01/27/2025 9:16 AM EST [facility] ?[facility] Main [place] ?[address] ? [place] [address] ? Electrocardiograph Report ? Signed ? Patient: Tim,Black E ?MR#: [id number] ? : 1975 ?Acct:[id number] ? Age/Sex: 49 / M ?ADM Date: [...] Epperson ) ?? Confirmed by Cecilia Jacobsen ([id number]) on 01/27/2025 9:16:17 AM ? Referred By: ?Electronically Signed By: Cecilia Jacobsen ? Transcribed By: ? MUS ? Signed By ? Cecilia Jacobsen MD ? 5 0916 Procedure Note Cecilia Jacobsen MD - 01/27/2025 [place] [address] Electrocardiograph Report Signed Patient: Black Dumont EMR#: [id number] : 1975Acct:[id number] Age/Sex: 49 / MADM Date: 01/26/25 Loc: Room:Type: [facility] Attending Dr: Gregory Jose DPM Ordering Provider: [...] ,Sokolow- Epperson ) Confirmed by Cecilia Jacobsen ([id number]) on 01/27/2025 9:16:17 AM Referred By: Electronically Signed By: Cecilia Jacobsen Transcribed By: MUS Signed By Cecilia Jacobsen MD 5 [id number] Authorizing ProviderResult TypeResult StatusNicblanca Jose DPMECG ORDERABLES Final ResultPerforming OrganizationAddressCity/State/ZIP CodePhone Number [facility] [address] [place] [address], * MR ankle left wo IV contrast [...] Dictated By: ?Maurice Pereyra II, MD ?12/29/24 1706 ? Signed By: <Electronically signed by Maurice Pereyra II, MD in OV> ? 10/21/25 1715 Narrative 12/29/2024 5:18 PM EDT [facility] ?[facility] Main [place] ?[address] ? [place] [address] ? MRI Report ? Signed ? Patient: [place],Black E ?MR#: [id number] ? : 1975 ?Acct:[id number] ? Age/Sex: 49 / M ?ADM Date: 12/29/24 ? Loc: ICMR ?Room: ?Type: REG CLI [...] Procedure Note Maurice Pereyra MD - 12/29/2024 [place] [address] MRI Report Signed Patient: Black Dumont EMR#: [id number] : 1975Acct:[id number] Age/Sex: 49 / MADM Date: 12/29/24 Loc: [facility] Room:Type: REG CLI Attending Dr: Gregory Jose DPM Copies [...] Pereyra M.D. 12/29/2024 5:15 PM Dictation Location: [place] [address] Transcribed By: [facility] 12/29/241714 Dictated By: Maurice Pereyra II, MD 12/29/241705 Signed By: <Electronically signed by Maurice Pereyra II, MD inOV> 12/29/241714 Authorizing ProviderResult TypeResult StatusNicholas A Brown DPMIMG MRI PROCEDURESFinal Result from Last 3 Months Insurance Care Teams Team MemberRelationshipSpecialtyStart DateEnd Date Jack Collins DO [address] [facility] [place] [address] PCP - GeneralInternal Medicine07/10/23
--- OUTSIDE RECORDS SUMMARY | 2025-02-09 09:55 | XMS_ITS | Encounter Summary ---
Author Organization [facility] Address [address] [place] [address] Care Team Providers Care Plant General Manager Name Role Phone DennisJack Sofia SINGH Primary Care Provider [phone] Encounter Details DateTypeDepartmentCare Team (Latest Contact Info)Kuyexifajyw20/24/2025bstract [facility] [address] [facility] [address] [place] [address] Gregory Jose DPM [address] [facility] [address] [place] [address] Social History Tobacco UseTypesPacks/DayYears UsedDateSmoking [...] Assigned at BirthMale 04/29/2024 2:06 PM ESTLegal MacFsrf6405/23/2022 7:00 PM EDTGender IdentityMale 04/29/2024 2:06 PM ESTSexual ZrbabpppwxgMvrjumsr87/19/2025 2:06 PM ESTdocumented as of this encounter Plan of Treatment DateTypeDepartmentCare Team (Latest Contact Info)Mqfdhcnjjra15/03/2025 3:20 PM ESTOffice Visit [facility] [place] [facility] [address] [place] [address] Gregory Jose, MER [address] [address] documented as of this encounter Visit Diagnoses Not on filedocumented in this encounter Care Teams Team MemberRelationshipSpecialtyStart DateEnd Date Jack Collins DO [address] [place] [address] PCP - GeneralInternal Medicine07/10/23documented as of this encounter
--- OUTSIDE RECORDS SUMMARY | 2025-02-09 09:55 | XMS_ITS | Encounter Summary ---
Author Organization [facility] Address [address] [place] [address] Care Team Providers Care Hadoop Engineer Name Role Phone DennisJack Sofia SINGH Primary Care Provider [phone] Encounter Details DateTypeDepartmentCare Team (Latest Contact Info)Uzbxswfmyrb14/18/2025bstract [facility] [address] [facility] [address] [place] [address] Gregory Jose DPM [address] [facility] 5 [place] [address] Social History Tobacco UseTypesPacks/DayYears UsedDateSmoking [...] Assigned at BirthMale 04/29/2024 2:06 PM ESTLegal MtfJedr8505/23/2022 7:00 PM EDTGender IdentityMale 04/29/2024 2:06 PM ESTSexual LalrrjieqqrMjbnvbbd11/19/2025 2:06 PM ESTdocumented as of this encounter Plan of Treatment DateTypeDepartmentCare Team (Latest Contact Info)Utpdilkknxf85/03/2025 3:20 PM ESTOffice Visit [facility] [place] [facility] [address] [place] [address] Gregory Jose, MER [address] [address] documented as of this encounter Visit Diagnoses Not on filedocumented in this encounter Care Teams Team MemberRelationshipSpecialtyStart DateEnd Date Jack Collins DO [address] [place] [address] PCP - GeneralInternal Medicine07/10/23documented as of this encounter
--- OUTSIDE RECORDS SUMMARY | 2025-02-09 09:55 | XMS_ITS | Encounter Summary ---
Author Organization [facility] Address [address] [place] [address] Care Team Providers Care Cost Clerk Name Role Phone DennisJack Sofia SINGH Primary Care Provider [phone] Reason for Visit * ReasonOnset DateCommentsCasting For Braces Or Pwxjkhtlk09/10/2025 Encounter Details DateTypeDepartmentCare Team (Latest Contact Info)Vzmxncwhipq66/10/2025Telephone [facility] 112 [facility] [address] [place] [address] Gregory Jose DPM 3[address] [facility] 5 [place] [address] Casting For Braces Or Orthotics [...] 07/08/2023Sex and Gender InformationValueDate RecordedSex [facility]igned [facility] 04/29/2024 2:06 PM ESTLegal KqyBvho2105/23/2022 7:00 PM EDTGender IdentityMale 04/29/2024 2:06 PM ESTSexual KoaeehgzsyzNyffxnky36/19/2025 2:06 PM ESTdocumented as of this encounter Miscellaneous Notes * Telephone Encounter - TATIANA DAVILA - 02/08/2025 11:29 AM EST Orthotics received, curing pickling packer scheduled 02/10 * Telephone Encounter - Lidia Castro - 02/03/2025 4:10 PM EST All required documents were uploaded to [facility] portal * Telephone Encounter - TATIANA DAVILA - 01/26/2025 5:03 PM EST Scanned for orthotics and sent 01/26 * Telephone Encounter - Lidia Castro - 01/25/2025 4:10 PM EST Per call with [employer] at [phone] with [place], policy is active and [facility] and [employer] are in network. Patient has met 937.82 of 1400 individual deductible and has met 4,600 of 4,600 oop deductible. Code 25270 and 28005 does not require prior authorization. Reference#: [id number] PCP appt is 01-27 at 3:15 PST orders were sent to [facility] Surgery scheduled on both portals. Demographics, insurance card, office notes, and sx form uploadedto [facility] portal. * Telephone Encounter - TATIANA DAVILA - 01/20/2025 11:11 AM EST PATIENT NOTIFIED OF BENEFITS, COMING IN 01/26 FOR SCANNING * Telephone Encounter - TATIANA DAVILA - 01/20/2025 11:05 AM EST PER CALL W/ paola @ [facility] celine HAS AN ACTIVE PLAN WITH AN EFFECTIVE DATE OF 03/11/23 CUSTOM MOLDED ORTHOTICS CODE L3020 DED: $1400 IND/ $2800 FAM (FAM IS MET) OOP: $4600 IND / $9200 FAM ( IND IS MET) COIN: NO PRIOR AUTH: NO FREQ LIMIT: 2 IN 1 DAY EXCL: NO COVERED: 80 % ONCE DED IS MET/ 100% ONCE OOP IS MET- BOTH ARE MET REF# [id number] * Telephone Encounter - Gregory Jose DPM - 01/18/2025 4:48 PM EST HOSPITAL[facility] DATE-- [place] PCP: [facility] DIAGNOSIS WITH PROCEDURES 1) left contracture of ankle with left Achilles tendinitis with percutaneous Achilles tenotomy withTenex device under ultrasonic guidance M24.522/M76.62 and [address] Approximate case length:30 min SPECIAL NEEDS FOR [...] Plan of Treatment DateTypeDepartmentCare Team (Latest Contact Info)Hmfjjnkqzcu83/03/2025 3:20 PM ESTOffice Visit [facility] [place] [facility] [address] [place] [address] Gregory Jose DPM [address] [address] documented as of this encounter Visit Diagnoses Diagnosis Left Achilles tendinitis- Primary Posterior tibial tendonitis of right leg Contracture of left ankle- Primary Left Achilles tendinitis documented in this encounter Care Teams Team MemberRelationshipSpecialtyStart DateEnd Date Jack Collins DO [address] [facility] [place] [address] PCP - GeneralInternal Medicine07/10/23documented as of this encounter
--- OUTSIDE RECORDS SUMMARY | 2025-02-09 09:55 | XMS_ITS | Encounter Summary ---
Author Organization [facility] Address [address] [place] [address] Care Team Providers Care Manager Metal Name Role Phone DennisJack Sofia SINGH Primary Care Provider [phone] Encounter Details DateTypeDepartmentCare Team (Latest Contact Info)Lexsvyyatae24/18/2025External Result Encounter [facility] External Department Unsolicited Gregory Jose DPM [address] [address] Social History Tobacco UseTypesPacks/DayYears UsedDateSmoking Tobacco: NeverSmokeless [...] Assigned at BirthMale 04/29/2024 2:06 PM ESTLegal UipJbgq0405/23/2022 7:00 PM EDTGender IdentityMale 04/29/2024 2:06 PM ESTSexual HrtaihmwfjsHbqosobn84/19/2025 2:06 PM ESTdocumented as of this encounter Plan of Treatment DateTypeDepartmentCare Team (Latest Contact Info)Qeeddahjthy43/03/2025 3:20 PM ESTOffice Visit [facility] [place] [facility] [address] [facility] [place] [phone] Gregory Jose, DPM [address] [facility] [address] [place] [address] documented as of this encounter Procedures Procedure NamePriorityDate/TimeAssociated DiagnosisCommentsECG 12-LEAD01/26/2025 3:28 PM EST documented in this encounter Results * ECG 12 lead (01/26/2025 3:28 PM EST)Specimen (Source)Anatomical Location / LateralityCollection Method / VolumeCollection TimeReceived Time01/26/2025 3:28 PM EST [facility] - 01/27/2025 9:16 AM EST [facility] ?[address] ? [place] [address] ? Electrocardiograph Report ? Signed ? Patient: Tim,Black E ?MR#: [id number] ? : 1975 ?Acct:[id number] ? Age/Sex: 49 / M ?ADM Date: [...] Epperson ) ?? Confirmed by Cecilia Jacobsen ([id number]) on 01/27/2025 9:16:17 AM ? Referred By: ?Electronically Signed By: Cecilia Jacobsen ? Transcribed By: ? MUS ? Signed By ? Cecilia Jacobsen MD ? 5 0916 Procedure Note Cecilia Jacobsen MD - 01/27/2025 [facility] [place] [address] Electrocardiograph Report Signed Patient: Black Dumont EMR#: [id number] : 1975Acct:[id number] Age/Sex: 49 / MADM Date: 01/26/25 [facility]: [facility]: Gergory Jose DPM Ordering Provider: Gregory Jose DPM [...] ,Sokolow- Epperson ) Confirmed by Cecilia Jacobsen ([id number]) on 01/27/2025 9:16:17 AM Referred By: Electronically Signed By: Cecilia Jacobsen Transcribed By: MUS Signed By Cecilia Jacobsen MD 5 [id number] Authorizing ProviderResult TypeResult StatusNicholmarvel Jose DPMECG ORDERABLES Final ResultPerforming OrganizationAddressCity/State/ZIP CodePhone Number [facility] [address] [place] [address], documented in this encounter Visit Diagnoses Not on filedocumented in this encounter Care Teams Team MemberRelationshipSpecialtyStart DateEnd Date Jack Collins DO [address] [place] [phone] PCP - GeneralInternal Medicine07/10/23documented as of this encounter
--- OUTSIDE RECORDS SUMMARY | 2025-02-09 09:55 | XMS_ITS | Clinical Summary ---
Author Organization [facility] Address [address] [place] [address] Phone Care Team Providers Care Pitch Worker Name Role Phone Unavailable Primary Care Provider Unavailabl e Social History Tobacco UseTypesPacks/DayYears UsedDateSmoking Tobacco: Never AssessedSex and Gender InformationValueDate RecordedSex Assigned at BirthNot on fileLegal Sex Male05/21/2022 2:10 PM EDTGender IdentityNot on fileSexual OrientationNot on file Plan of Treatment Health MaintenanceDue DateLast DoneCommentsCT Ecnxxnazxbdc05/09/1976Colonoscopy 1975Colorectal Cancer Nobftvopo24/09/1976FIT-DNA (Cologuard)1975FIT 1975HIV Hxhtvmmih03/09/1976Lipid Panel05/18/19751960Nqrbazxvjhrwh99/09/1976 Yearly Adult Rcanqevf73/09/1976MMR Vaccines (1 of 1 - Standard series)05/17/1976 Hepatitis C Ceeohoshh14/09/1994Hepatitis B Vaccines (1 of 3 - 19+ 3-dose series) 05/17/1994DTaP/Tdap/Td Vaccines (1 - Tdap)05/17/1997Influenza Vaccine (#1) 5COVID-19 Vaccine (1 - 2024- season)2024Zoster Vaccines (1 of 2)05/17/2025HIB VaccinesAged OutNo [...]
--- OUTSIDE RECORDS SUMMARY | 2025-02-09 09:55 | XMS_ITS | Encounter Summary ---
Author Organization [facility] Address [address] [place] [address] Care Team Providers Care Industrial Mechanic Name Role Phone Jack Collins Primary Care Provider [phone] Encounter Details DateTypeDepartmentCare Team (Latest Contact Info)Uivwwwaleey07/26/2025Travel Social History Tobacco UseTypesPacks/DayYears UsedDateSmoking Tobacco: NeverSmokeless [...] Assigned at BirthMale 04/29/2024 2:06 PM ESTLegal WcgPmdo9905/23/2022 7:00 PM EDTGender IdentityMale 04/29/2024 2:06 PM ESTSexual UmdiadwusjqKqsqafja36/19/2025 2:06 PM ESTdocumented as of this encounter Plan of Treatment DateTypeDepartmentCare Team (Latest Contact Info)Fqzjcueloto71/03/2025 3:20 PM ESTOffice Visit [facility] [place] [facility] [address] [place] [address] Gregory Jose, MER [address] [facility] [address] [place] [address] documented as of this encounter Visit Diagnoses Not on filedocumented in this encounter Care Teams Team MemberRelationshipSpecialtyStart DateEnd Date Jack Collins DO [address] [place] [address] PCP - GeneralInternal Medicine07/10/23documented as of this encounter
--- OUTSIDE RECORDS SUMMARY | 2025-02-09 09:55 | XMS_ITS | Continuity of Care Document ---
Author Organization [facility] Address [address] [place] [address] Phone Care Team Providers Care Apron Trimmer Name Role Phone Jack Collins DO Primary Care Provider Jack Collins DO Attending Provider [phone] Gregory Jose DPM Attending Provider Mil Agarwal MD Attending Provider Sin Flores DO Attending Provider Vashti Owen CMA Attending Provider [facility] Care Teams Patient Care Team Team Status: [...] Start: December 29, 2024 End: December 29, 2024SHERIDAN Moratayattradha ProviderActiveStart: December 29, 2024 End: December 29, 2024 Visit Care Team Team Status: Inactive Member Role/Relationship Status Dates Jack Collins DO Primary Care Provider Active Start: January 06, 2025 End: January 06, 2025George Jesus Agarwal MDAttending ProviderActive Start: January 06, 2025 End: January 06, 2025 Visit Care Team Team Status: Inactive Member Role/Relationship Status Dates Jack Collins DO Primary Care Provider Active Start: January 26, 2025 End: January 26, 2025Gregory Jose DPMAttending ProviderActiveStart: January 26, 2025 End: January 26, 2025 Visit Care Team Team Status: Inactive Member Role/Relationship Status Dates Jack Collins DO Primary Care Provider Active Start: January 27, 2025 End: January 27bi Collins DOAttending ProviderActiveStart: January 27, 2025 End: January 27, 2025 Visit Care Team Team Status: Active Member Role/Relationship Status Dates Jack Collins DO Primary Care Provider Active Start: February 01, 2025 Sin Flores DOAttending ProviderActiveStart: February 01, 2025 Patient Care Team Team Status: Active Member Role/Relationship Status Dates Jack Collins DO Primary Care Provider Active Start: February 02, 2025 Vashti Owen CMAAttending ProviderActiveStart: February 02, 2025 Chief Complaint and Reason for Visit Chief Complaint Admit Date Wellness December 23, 2024 8 :27am S86.012A December 29, 2024 1 :30pm r/s from 12/30January 06, 2025 8 :13am Z01.818 January 26, 2025 3:03pm surgical clearance ([facility] Dr. Jose) Naheed desouza 2024 3:04pm Amb Documentation February 02, 2025 10:23am Reason for Visit Admit Date MARTHA (generalized [...] 3:04pm Type 2 diabetes mellitus with hyperglyce richi January 27, 2025 3:04pm Preop exam for [...] Legal Sex [facility] (finding) [facility] Family History Relationship Condition Age at Onset Recorded Date/T nilo father Diabetes mellitus Unknown Malignant neoplasm of urinary bladderUnknownMyocardial infarctionUnknownmother Diabetes mellitusUnknownHypertensionUnknownDisorder of kidneyUnknownmaternal grandfatherDiabetes mellitusUnknownCerebrovascular accident (CVA)UnknownHeart diseaseUnknownmaternal grandmotherDementiaUnknownpaternal grandfatherMalignant neoplasmUnknownpaternal grandmotherMalignant neoplasmUnknownsisterObsessive- compulsive disorderUnknownGeneralized anxiety disorderUnknownsonGastroesophageal reflux diseaseUnknownIrritable bowel syndromeUnknownEosinophilic esophagitis Unknown Problems Active Problems Problem Diagnosis/Recorded Date Onset Date Status C omments Nodule of kidney February 01, 2025 1:09pm Unknown Act tarik CT abdomen: 18mm exophytic hypodensity right kidney - 01/2025 Cervical spondylosis with radiculopathy May 28, 2023 2:11pm Unknown Active Gastroesophageal reflux disease with esophagitis without hemorrhageMarch 2023 2:11pmUnknownActiveChronic migraine with aura without status migrainosus, not intractableJuly 2024 5:33pmUnknownActiveMetabolic dysfunction- associated steatotic liver disease (MASLD)February 01, 2025 1:08pmUnknown ActiveCT abd: fatty liver, exophytic right renal nodule, colonic wall thickening - 11/2025OSA (obstructive sleep apnea)May 28, 2023 6:43amUnknownActiveGAD (generalized anxiety disorder)May 28, 2023 6:40amUnknownActiveScreening PSA (prostate specific antigen)August 21, 2024 7:56amUnknownActivePSA: 1.3 - 08/2024 Type 2 diabetes mellitus with hyperglycemiaMarch 2023 2:11pmUnknownActive Thyroid noduleOctober 2023 1:46pmUnknownActiveUS: right 0.5cm, 0.3cm TR3 and left 0.6cm, 0.4mm, 0.7mm TR3 - 12/2023Wellness examinationOctober 2023 7:11amUnknownActiveMixed hyperlipidemiaSeptember 2023 5:15pmUnknownActive DDD (degenerative disc disease), cervicalJuly 2024 5:33pmUnknownActive Primary hypertensionMarch 2023 2:11pmUnknownActiveLHC: normal coronary anatomy - 11/2023.Recurrent major depressive disorder, in full remissionMarch 2023 2:11pmUnknownActiveChronic low back pain without sciaticaJuly 2024 5:33pmUnknownActiveIrritable bowel syndrome with diarrheaMarch 2023 2:11pmUnknownActiveS/P cervical spinal fusionFebruary 2024 12:51wo3856 ActivePharyngitisJuly 2024 2:06pmUnknownActiveLumbar spondylosisMarch 2023 6:41amUnknownActiveInactive/Resolved Problems Problem Diagnosis/Recorded Date Onset Date Status [...] July 09, 2023 5:49amBenazepril-Hydrochlorothiazide 20-12.5 mg tablet Discontinued0.ROUTE.MICGIRA952Ipxgp 2023 6:46pmMay 2023 2:21pmTAKE 1 TABLET BY MOUTH DAILYRosuvastatin 20 mg tabletDiscontinued0.ROUTE.UPIYFZG461 July 03, 2023 1:37pmApril 2024 11:25amTAKE 1 TABLET BY MOUTH EVERY DAY IN THE EVENINGDulaglutide 1.5 mg/0.5 mL pen injectorDiscontinued0.75MGSUBCUT every eghd3408Okrkx 2023 5:49amMay 2023 2:23pmEscitalopram Oxalate 20 mg tabletDiscontinued0.ROUTE.RSIFJUW951OpdJuly 31, 2023 1:56pmNovember 2023 6:57amTAKE 1 TABLET BY MOUTH EVERYDAY AT BEDTIMEBaclofen 20 mg tablet Discontinued0.ROUTE.OVCFDVC793Vwk2023 1:56pmMay 2024 6:42amTAKE 1 TABLET BY MOUTH EVERYDAY AT BEDTIMEDulaglutide 3 mg/0.5 mL pen injector Discontinued1.5MGSUBCUTevery oqya7432Cxgp2023 12:19pmJune 2023 5:08pmDulaglutide 3 mg/0.5 mL pen wrmygrgxAazpzmzfycqf0ZYXAKSNBosugy jeuc2969 August 20, 2023 5:07pmJune 2023 9:36amDulaglutide 1.5 mg/0.5 mL pen xsiznddbTpwormhbyhxh0RNUNUZCXxuhon bxhs91621Bgrt2023 9:36amJune 2023 10:25amDulaglutide 1.5 mg/0.5 mL pen injectorDiscontinued1.5MGSUBCUTevery 2023 10:25amJune 2023 9:16amDulaglutide 1.5 mg/0.5 mL pen injectorDiscontinued1.5MGSUBCUTevery padk1787Zbaq2023 9:15amAugust 2023 12:31pmBenazepril-Hydrochlorothiazide 20-25 mg onchndBuksqtpuzxho4DUS VXRqqdi35588Nqud 2023 3:12pmSeptember 2023 8:12amBlood-Glucose Sensor (Dexcom G7 Sensor) deviceDiscontinued0.Flygj76Mvrk 2023 11:00pmJuly 2023 11:03amType 2 diabetes mellitus with hyperglycemia Type 2 diabetes mellitus with hyperglycemia 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 sensor every 10 daysBlood- Glucose,Skein Yarn Drier,Cont (Dexcom G7 Skein Yarn Drier) miscDiscontinued0.Ruxla80Ghdj 2023 11:00pmJuly 2023 11:03amAs directedBlood-Glucose Sensor (Freestyle Maicol 3 Sensor) deviceDiscontinued0.Zvfst54Kazl 2023 11:00pmSeptember 2023 4:52pmDiabetes mellitus with hyperglycemia Type 2 diabetes mellitus with hyperglycemiaChange sensor every 14 daysBlood- Glucose,Skein Yarn Drier,Cont (Freestyle Maicol 3 [place]) miscActive0.Eedpg41Enva 2023 11:00pmDiabetes mellitus with hyperglycemia Type 2 diabetes mellitus with hyperglycemiaAs directedAlprazolam 0.5 mg tablet Discontinued0.5MGPOEvery 8 hours as needed for Zcjivpf7105Hppl 2023 2:53pm November 04, 2023 7:34pmGeneralized anxiety disorder Generalized anxiety disorderInsulin Glargine-Yfgn (Semglee(Insulin Glarg- Yfgn)Pen) 100 unit/mL (3 mL) insulin pqnYophcogtkyen49ZUURUCEUNBIcfvp79614Epvnbs 2023 7:46amAugust 2023 7:56amInsulin Glargine (Lantus Solostar U-100 Insulin) 100 unit/mL (3 mL) insulin hkwSnvegntnmfsb47LKINVJTXMQDroed mgkclrt7674 3July 2023 11:00pmSeptember 2023 12:14pmDulaglutide (Trulicity) 1.5 mg/0.5 mL pen injectorDiscontinued1.5MGSUBCUTevery buwl2916Jpbbtd 2023 12:30pmAugust 2023 9:10amDulaglutide 3 mg/0.5 mL pen injectorDiscontinued3 MGSUBCUTevery jxdx6293Rvlevr 2023 9:09amOctober 2023 2:04pm Alprazolam 0.5 mg tabletDiscontinued0.5MGPOEvery 8 hours as needed for Oxfjrlm43 300August 2023 7:33pmOctober 2023 1:55pmGeneralized anxiety disorder Generalized anxiety disorderBlood-Glucose Sensor (Freestyle Maicol 3 Plus Sensor) deviceDiscontinued0.ROUTE.UPOWPLGHC072Rfdwjjkvf 2023 11:00pmMarch 2024 7:45amType 2 diabetes mellitus with hyperglycemia Type 2 diabetes mellitus with hyperglycemia 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 directedDulaglutide 4.5 mg/0.5 mL pen injectorDiscontinued4.5MGSUBCUTevery vagj3359Omltrtl 14th, 2024 2:55pmOctober 2024 6:06pmMetoprolol Succinate 25 mg tablet extended release 24 hr Tqcnripyvyuf91FHBRKwfsy at ypwcgwr10063Yzwhhzf 2023 11:40amOctober 2023 2:15pmIsosorbide Mononitrate 30 mg tablet extended release 24 hr Discontinued0.ROUTE.ZLJRVHN251Ucuorki 2023 11:41amOctkn[facility] hospital 2023 2:15pmTAKE 1 TABLET BY MOUTH EVERY MORNINGEscitalopram Oxalate 20 mg tablet Discontinued0.ROUTE.FIGVFSP425Fokylymx 2023 6:56amMay 2024 6:42am TAKE 1 TABLET BY MOUTH EVERYDAY AT BEDTIMESildenafil 100 mg tabletDiscontinued0 .ROUTE.TGRZCDS10[place] 2023 8:43amMay 2024 6:41amTAKE 1 TABLET BY MOUTH NEEDED 30 MINUTES TO 4 HOURS BEFORE SEXUAL ACTIVITYAlprazolam 0.5 mg tabletDiscontinued0.5MGPOThree times daily as needed for mgpphux54169Wdwuwiil 2023 8:30amMay 2024 6:44amGeneralized anxiety disorder Generalized anxiety disorderBlood-Glucose Sensor (Freestyle Maicol 3 Plus Sensor) deviceDiscontinued0.ROUTE.RKFOLWG368XnyczMay 30, 2024 7:44amOct2024 8:53amType 2 diabetes mellitus with hyperglycemia Type 2 diabetes mellitus with hyperglycemia 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 insulinCHANGE EVERY 15 DAYS DIRECTEDBenazepril- Hydrochlorothiazide 20-25 mg tabletActive0.ROUTE.NQELHIR525Txmwh 2024 9:09amTAKE 1 TABLET BY MOUTH EVERY DAY FOR 90 DAYSComplies with drug therapy Rosuvastatin 20 mg tabletActive0.ROUTE.UDPHUBA807Rdplr 2024 11:24amTAKE 1 TABLET BY MOUTH EVERY DAY IN THE EVENINGComplies with drug therapyAlprazolam 0.5 mg tabletActive0.5MGPOThree times daily as needed for bymefsd21953Vzi 2024 6:43amGeneralized anxiety disorder Generalized anxiety disorderComplies with drug therapyBaclofen 20 mg tablet Active0.ROUTE.MVQJWEZ460Iir 2024 6:42amTAKE 1 TABLET BY MOUTH EVERYDAY AT BEDTIMEComplies with drug therapyEscitalopram Oxalate 20 mg tabletDiscontinued0 .ROUTE.BNDJKDB419CceJuly 28, 2024 6:42amNovember 2024 7:02amTAKE 1 TABLET BY MOUTH EVERYDAY AT BEDTIMESildenafil 100 mg tabletDiscontinued0.ROUTE.YHRWHSD62 August 02, 2024 6:41amNovember 2024 7:26amTAKE 1 TABLET BY MOUTH NEEDED 30 MINUTES TO 4 HOURS BEFORE SEXUAL ACTIVITYInsulin Glargine (Lantus Solostar U- 100 Insulin) 100 unit/mL (3 mL) insulin zhxAnkwwl58ZHOXVYHQKDQwmsh90331Fbblrb 2024 8:07amComplies with drug therapyBlood-Glucose Sensor (Freestyle Maicol 3 Plus Sensor) deviceActive0.ROUTE.YXNLFUG407Rueavqi2024 8:53amType 2 diabetes mellitus with hyperglycemia Type 2 diabetes mellitus with hyperglycemia FPC (current) use of insulinCHANGE EVERY 15 DAYS DIRECTEDDulaglutide 4.5 mg/0.5 mL pen injectorActive4.5MGSUBCUTevery rhvg5142Eumpyzg2024 6:06pmComplies with drug therapyEscitalopram Oxalate 20 mg nynijqKiwgno83WKLZ Ujioc26802Ccfkeypn 2024 7:01amComplies with drug therapySildenafil 100 mg upiluhSfrmkh793ROBRKeutl as needed for sexual mltahtuo16901Bovcldir 2024 7:25amComplies with drug therapyAmitriptyline 25 mg ltqmfvSyikgz49XISXPihiq at kdjzhlu72613Cjrsxwmx 19th, 2025 7:35amInsomnia Insomnia, unspecifiedComplies with drug therapyBaclofen 20 mg tabletDiscontinued 20MGPOBedtimeJanuary 2019 12:00amMay 2021 10:38amPropranolol 80 mg capsule,extended release 24 ejWbrsiflschsg09BZTNKlpsvUzwrnhs 2019 12:00am January 30, 2021 11:16amBenazepril 10 mg rfkmjhWndlmwnkzqbr23KMFNMkgnfKavnnvc 2019 12:00am[facility] 2023 2:99apUemndhapq-Jztmak-Sjbnfwsr-Scop 16.2- 0.1037 -0.0194 mg almyvzIcyhoittwpgc9YIZAXHumeq times dailyJanuary 2019 12:00amNoveb[facility] 2020 11:15amCholestyramine-Aspartame 4 gram powder Whlftlfvrhgn2XDPFIxtrqJiczywn 2019 12:00amNoveer 2020 11:15am Diphenoxylate-Atropine 2.5-0.025 mg gzzknpWhhqogixyxtn8BEDPSDwybn times daily January 30, 2021 12:00am[facility] 2023 2:19pmAlprazolam 0.5 mg tablet Discontinued0.5MGPODaily at bedtime as needed for AnxietyNov2020 12:00am[facility] 2023 2:20pmEtodolac 400 mg qurvvyEqizqaygnial558YOPKAsype dailyNovember 2020 12:00amMay 2021 10:39amAtenolol 50 mg tablet Ojrnaghjnvek85FRSXAyltdAwjgxhxc 2020 12:00amMay 2021 10:38am Loratadine 10 mg QilztsPpnhllnhkgqz84NSOTHfjihEtqartzj 2020 12:00amMay 2021 10:39amEscitalopram Oxalate 20 mg jtsmutDeealunrgdss61TYXWIhqvv at bedRegency [facility] 2020 12:00amMarch 2023 2:19pmCholestyramine- Aspartame (Prevalite) 4 gram powder in qcnrrmEeiffhgjeija8DZBWYUFmcgjQnypnrrm 2020 12:00amMay 2021 10:38amRosuvastatin 20 mg wogvjuZuulckghqeah91 MGPODaily at bedtimeK[facility] 2020 12:00amMarch 2023 2:20pmAlprazolam 0.5 mg tabletDiscontinued0.5MGPOEvery 8 hours as needed for AnxietyWvumed[facility] 2023 2:13pmJuly 2023 2:55pmCetirizine (Zyrtec) 10 mg FawmisCqrhvffoeqod23 MGPOEvery morningSanta Fe 2021 11:00pm[facility] 2023 1:34pmBenazepril- Hydrochlorothiazide 20-25 mg ttmitcJmjnjunqavou3LSPHCNxfeg morningPikeville Medical Center 2023 11:00pmW[facility] 2024 9:09amMetoprolol Succinate 25 mg tablet extended release 24 mlPrnnildwactk09SAHFDfqsn at bedUNC [facility] 2023 11:00pm[facility] 2023 11:41amAmitriptyline 25 mg dmrwerWyxrbagwgseq54CYPM Daily at bedtimeWvumedicine [facility] 2023 11:00pm[facility] 2024 7:37amBaclofen 20 mg mxmofbStwjbmvmjzok56ERIDEzfmi at bedtimeW[facility]umedicine [facility] 2023 11:00pmUty 2023 1:56pmBenazepril 10 mg wnwubwVikwmfmidnnx25MLLPTcqunGvsee 2023 11:00pm May 29, 2023 3:38pmCefuroxime Axetil 250 mg kkcsexNmjtbsoagxvz283IRHTQsclh 12 hoursW[facility]umedicine [facility] 2023 11:00pmW[facility] 2023 3:12pmGalcanezumab-Gnlm 120 mg/mL wenapnfSlhndt090OJQHTODKpslbe monthMarch 2023 11:00pmmigraine preventionComplies with drug therapyEscitalopram Oxalate 20 mg tablet Yfpwuhlyclzx30TGTMNwlag at bedtimeMarch 2023 11:00pmMay 2023 1:56pm Insulin Glargine (Lantus Solostar U-100 Insulin) 100 unit/mL (3 mL) insulin pen Mineykvyeizr05KICGRLZAIMTaqdn at bedtimeMarch 2023 11:00pmAugust 2023 7:47amDiphenoxylate-Atropine 2.5-0.025 mg qrzllbUazzngloxpgp1STYHDZbneu times dailyMarch 2023 11:00pmJune 2023 3:09pmRizatriptan (Maxalt) 10 mg zlqffhNqfjyqlrgvid68QCXGUasdxHeywg 2023 11:00pmSeptember 2023 12:14pm Omeprazole 40 mg capsule,delayed release(DR/EC)Svdkdt67PEHJBckus morningMarch 2023 11:00pmgerdComplies with drug therapySemaglutide (Ozempic) 0.25 mg or 0.5 mg (2 mg/3 mL) pen injectorDiscontinued0.25MGSUBCUTevery weekMarch 2023 11:00pmMarch 2023 3:39pmRosuvastatin 20 mg oygsviOotgzihoodzq33UTHZ Every eveningMarch 2023 11:00pmApril 2023 1:37pmBenazepril- Hydrochlorothiazide 20-12.5 mg ycpvokVvfhutixvljt4FPIQZJcefb46682Jhyky 2023 11:00pmApril 2023 6:47pmSemaglutide (Ozempic) 0.25 mg or 0.5 mg (2 mg/3 mL) pen injectorDiscontinued0.25MGSUBCUTevery gnic0657Boogk 2023 3:38pmApril 2023 3:24pmRizatriptan (Maxalt) 10 mg jeumbhYvpmvipbxopg29BDRR Daily as needed for migraine headacheSeptember 4 12:12pmSeptember 2023 10:12amBenazepril-Hydrochlorothiazide 20-25 mg clizqsGzwchyvdvakb6SYUGY Eifpq50727Dygbb 2023 11:00pmJuly 2023 3:12pmDulaglutide 1.5 mg/0.5 mL pen injectorDiscontinued1.5MGSUBCUTevery dqnd0517Dwq 2023 2:23pmJune 2023 12:19pmSildenafil 100 mg maleurKalmixlnqoaw403QRRQKwbee as needed for sexual uxecnibf5967Jgbpn 2023 11:00pmNovember 2023 8:43amadminister 30 minutes to 4 hours before activityDoxycycline Hyclate 100 mg capsule Lfjohnqdbznx108XKXVQhair gdpym491Irrcmxj 2023 11:00pmJun2024 7:30amAzithromycin 250 mg tjstncIkkfogrurgwy6GNyvrwp669Eboa 2024 11:00pm December 23, 2024 7:32amPharyngitis Acute pharyngitis, unspecifiedTake 2 on day 1 and then take 1 for the next 4 days (days 2-5)Triamcinolone Acetonide 0.5 % gbkavAxykbylkxdtf6WBNOBTHIJDAKH Twice oxklv63387Iqsu 2024 11:00pmOctober 2024 7:26amPrednisone 20 mg hymrizNrebgrflzssy30XWMYHb Rsqsdtog0406Dwqd 2024 11:00pmOctober 2024 7:36am1 tab tid w/ food x 2 days, then bid w/ food x 3 days, then qd w/ food x 4 daysPrednisone 20 mg kpqegvHqqcbgcyqswp56XWDRVj Wejcbmky936Sver 25th, 2024 11:00pmSept2023 12:13pm1 tab tid w/ food x 3 days, then bid w/ food x 3 days, then qd w/ food x 3 daysInsulin Glargine (Lantus Solostar U-100 Insulin) 100 unit/mL (3 mL) insulin xiwZdscqxxurdbw89ADSQIKJVVHOrpqn dailySept2023 12:10pmAugust 2024 8:09amInsulin Lispro (Humalog Kwikpen Insulin) 100 unit/mL insulin gbvYopqvk7mzeghti scale doseSUBCUTUse as DirectedSept2023 11:00pmComplies with drug therapyIsosorbide Mononitrate 30 mg tablet extended release 24 sgGniunmkoebhr54XDEHAhnbe sophfpi07921Uilxakxsh 3rd, 2024 11:00pmOctober 2023 11:41amMetoprolol Succinate 25 mg tablet extended release 24 nbZnvthjugjlyi90KTBMFubyu22308Fbhpzbxss 3rd, 2024 11:00pmSeptember 2023 8:12amDocusate Sodium (Colace) 100 mg anhatlxZhesyaqdgqrp504NTZTNafip dailyOct2023 11:00pmOctober 2024 7:35amUbrogepant (Ubrelvy) 100 mg wcztjsIudwmq915VOXSQhjd as neededOct2023 11:00pmComplies with drug therapyAlprazolam 0.5 mg tabletDiscontinued0.5MGPOEvery 8 hours as needed for Lnyltwg07867Egfyhgv 14th, 2024 1:54pmDeceer 2023 8:32amGeneralized anxiety disorder Generalized anxiety disorderDulaglutide 4.5 mg/0.5 mL pen injectorDiscontinued 4.5MGSUBCUTevery nmsk2183Jycbztz 14th, 2024 2:02pmOct2023 2:55pm Azithromycin 250 mg cgpmrxUnvtnkjetwci7WCjlcxh130Bdmbxhb 15th, 2025 7:31am December 23, 2024 7:32amPharyngitis Acute pharyngitis, unspecifiedTake 2 on day 1 and then take 1 for the next 4 days (days 2-5)Bupropion Hcl 200 mg tablet sustained-release 12 hrSxssgd203SMYM September 28, 2024 11:00pmComplies with drug therapy Immunizations Immunization Event Date Not Given Reason Dose Number Senior Manager Lot Number Reason(s) Given Vaccine Information Statement (VIS) Detail Administration Location COVID-19 mRNA-1273 ([facility]) March 24, 2020 COVID-19 mRNA, Comirnaty (Pfizer)March 24OVI mRNA, Comirnaty (Pfizer)April 13OVI mRNA, Comirnaty (Pfizer)April 14, 2020 COVID-19 mRNA, Comirnaty (Pfizer)February 11OVID-19 (PFIZER) 12Y and olderSeptember 2022Influenza, seasonal, injectable, [id number] [facility] CenterInfluenza, seasonal, injectable, pf October [id number] [facility] Centerinfluenza, unspecified formulationNovember 2020Quadrivalent InfluenzaSeptember 2022 Procedures Procedure Date Performed Status MR ankle LT wo con December 29, 2024 12:32pm co mpleted Relevant Diagnostic Tests and/or Laboratory Data Laboratory Results Test Collection Date/Time Result Date/Time Result Interpretation Reference Range Result Comment Performing Site Lipase February 01, 2025 7:30am February 01, 2025 7:30am 37.0 U/L 16.0-77.0Amylase LevelNov2024 7:30amNovemb2024 7:30am74 U/L 25-115Albumin/Globulin RatioNove2024 7:30amNovember 2024 7:30am 1.3Anion GapFebruary 01, 2025 7:30amNovemb2024 7:30am12.8Basophils # (Auto)February 01, 2025 7:30amNovember 2024 7:30am0.0 10 3/uL0.0-0.1 Urine Culture ReflexedFebruary 01, 2025 8:25amNOAlbuminNov2024 7:30amNovemb2024 7:30am4.1 g/dL3.4-5.0BUN/Creatinine RatioNove2024 7:30amNovember 2024 7:30am20.4Basophils (%) (Auto)February 01, 2025 7:30amNovember 2024 7:30am0.3 %0.2-2.0Urine Other CastsNovoasis behavioral health hospital 2024 8:25amNONE SEEN #/LPFNONE SEENAlkaline PhosphataseNov2024 7:30amNovemb2024 7:30am74 U/V96-195Jyqev Urea NitrogenNovember 2024 7:30amNovemb2024 7:30am19.0 mg/dLAbove high normal7.0-18.0 Eosinophils # (Auto)February 01, 2025 7:30amNovember 2024 7:30am0.2 10 3/uL0.0-0.7Urine Other CrystalsFebruary 01, 2025 8:25amNone Seen #/HPFNone SeenAlanine Aminotransferase (ALT/SGPT)February 01, 2025 7:30amNovemb2024 7:30am54 U/X99-51Yllrmec LevelNovember 2024 7:30amNovemb2024 7:30am8.6 mg/dL8.5-10.1Eosinophils (%) (Auto)February 01, 2025 7:30amNove2024 7:30am1.0 %0.9-7.0Urine BacteriaJanoasis behavioral health hospital 2024 8:25amNONE SEEN #/HPFNONE SEENAspartate Amino Transf (AST/SGOT)February 01, 2025 7:30am February 01, 2025 7:30am28 U/E08-84Okbtxzin LevelNov2024 7:30am February 01, 2025 7:07to492 mmol/S20-299LtuqevlouhUmkazeff 2024 7:30am February 01, 2025 7:30am45.1 %42.0-54.0Urine BilirubinNovoasis behavioral health hospital 2024 8:25amNEGATIVENEGATIVEDirect BilirubinNovoasis behavioral health hospital 2024 7:30amNovemb2024 7:30am0.1 mg/dL0.0-0.2Carbon Dioxide LevelNovoasis behavioral health hospital 2024 7:30am February 01, 2025 7:30am29.8 mmol/L21.0-32.0HemoglobinNovember 2024 7:30amNovember 2024 7:30am15.2 g/dL14.0-18.0Urine Occult BloodNovember 2024 8:25amNEGATIVENEGATIVEGlobulinNovember 2024 7:30amNovember 2024 7:30am3.2 g/dLCreatinineNovember 2024 7:30amNovember 2024 7:30am0.93 mg/dL0.70-1.30Immature Granulocyte # (Auto)February 01, 2025 7:30am February 01, 2025 7:30am0.03 10 3/uL0.00-0.03Urine AppearanceNov2024 8:25amCLEARCLEARTotal BilirubinNov2024 7:30amNovemb2024 7:30am0.5 mg/dL0.2-1.0Estimated GFR ()February 01, 2025 7:30amNovemb2024 7:30am>60>=60 mL/min/1.73m 2Immature Granulocyte % (Auto)February 01, 2025 7:30amNovemb2024 7:30am0.2 %0.0-0.5Urine ColorNov2024 8:25amLT. YELLOWYELLOWTotal ProteinNov2024 7:30amNovemb2024 7:30am7.3 g/dL6.4-8.2Estimated GFR (Non- AmericanNov2024 7:30amNovemb2024 7:30am>60>=60 mL/min/1.73m 2Lymphocytes # (Auto)February 01, 2025 7:30amNovemb2024 7:30am1.6 10 3/uL1.2-3.8Urine Glucose (UA)February 01, 2025 8:25amNEGATIVE mg/dLNEGATIVE Glucose LevelNovember 2024 7:30amNovember 2024 7:05yl964 mg/dLAbove high wjttih09-952Xcnvkjorpyu (%) (Auto)February 01, 2025 7:30amNovember 2024 7:30am10.3 %Below low ttsnle63.5-60.0Urine KetonesNovember 2024 8:25amNEGATIVE mg/dLNEGATIVEPotassium LevelNovember 2024 7:30amNovember 2024 7:30am3.6 mmol/L3.5-5.1Mean Corpuscular HemoglobinNovember 2024 7:30amNovember 2024 7:30am29.9 pg25.9-34.0Urine Leukocyte EsteraseNovember 2024 8:25amNEGATIVENEGATIVESodium LevelNovember 2024 7:amNovember 2024 7:08fb578 mmol/G489-273Wzse Corpuscular Hemoglobin ConcentNovember 2024 7:30amNovember 2024 7:30am33.7 g/dL29.9-35.2Urine MucusNovember 2024 8:25amNONE SEENNONE SEENMean Corpuscular VolumeNovember 2024 7:30amNovemb2024 7:30am88.8 fL80.0-94.0Urine NitriteNovember 2024 8:25amNEGATIVENEGATIVEMonocytes # (Auto)February 01, 2025 7:30amNovember 2024 7:30am1.1 10 3/uLAbove high normal0.3-0.8Urine pHNovember 2024 8:25am 6.05.0-9.0Monocytes (%) (Auto)February 01, 2025 7:30amNovember 2024 7:30am7.2 %1.7-12.0Urine ProteinNovember 2024 8:25amNEGATIVE mg/dL NEG/TRACEMean Platelet VolumeNovember 2024 7:30amNovember 2024 7:30am10.3 fL9.5-13.5Urine RBCNovember 2024 8:47js0-5 #/HPF0-2Neutrophils # (Auto)February 01, 2025 7:30amNovember 2024 7:30am12.3 10 3/uLAbove high normal1.4-6.5Urine Specific GravityNov2024 8:25am<=1.005 Abnormal (applies to non-numeric results)1.005-1.025Neutrophils (%) (Auto) February 01, 2025 7:30amNovember 2024 7:30am81.0 %Above high normal 43.0-75.0Urine Squamous Epithelial CellsNov2024 8:25amRARE #/LPF NONE/RAREPlatelet CountNov2024 7:30amNovemb2024 7:32qy584 10 3/wZ095-787Yduqo UrobilinogenNov2024 8:25am0.2 EU/dL0.2-1.0Red Blood CountNov2024 7:30amNovember 2024 7:30am5.08 10 6/uL 4.70-6.10Urine WBCNov2024 8:25amNONE SEEN #/HPFNONE SEENRed Cell Distribution WidthFebruary 01, 2025 7:30amNove2024 7:30am13.1 % 11.0-15.0Corrected White Blood CountNov2024 7:30amNovember 2024 7:30am15.2 10 3/uLAbove high normal4.0-11.0Corrected White Blood Count January 26, 2025 3:35pmNov2024 5:04pm6.7 10*3/uL4.1-10.5[facility] [id number] [address] [place] [id number] WBC CountNov2024 3:35pmNov2024 5:04pm6.7 10*3/uL4.1-10.5[address] [facility] [id number] [address] [facility] [id number] Blood CountNovember 2024 3:35pmNov2024 5:04pm4.68 10*6/uL3.90-5.60[facility] [id number] [address] [facility] [id number] 2024 3:35pmNovember 2024 5:04pm 13.9 g/dL13.0-17.0[facility] [id number] [address] [facility] [id number] 2024 3:35pmJanember 2024 5:04pm 40.6 %38.8-50.0[facility] [id number] [address] [facility] [address]Nwuo Corpuscular VolumeNovember 2024 3:35pmJanember 2024 5:04pm86.6 fL83.5-101[facility] [id number] 1[address] [facility] 96659Zqle Corpuscular HemoglobinNovember 2024 3:35pmJanember [address]24 [address] [facility] [id number] 1[address] [facility] 11433Fmgz Corpuscular Hemoglobin ConcentNovember 2024 3:35pm January 26, 2025 5:04pm34.3 g/dL32.5-35.6[facility] [address] [facility] [id number] 1[address] [facility] 601[address]Axm Cell Distribution WidthNov2024 3:35pmNov2024 5:04pm13.7 %12.0-14.8[facility] [id number] [address] [facility] 00493Uihrxvoi CountNovember 2024 3:35pmNovember 2024 5:24pu549 10*3/nB556-381XueucwrjiTrihealth Bethesda North [facility] [id number] 1[address] [facility] 390[address]Jyml Platelet VolumeNovember 2024 3:35pmNov2024 5:04pm8.[address] [facility] [id number] 1[address] [facility] 88647Xfsfkcjqfbt (%) (Auto)January 26, 2025 3:35pmNov2024 5:04pm54.3 %.[facility] [id number] 1[address] [facility] 97185Gpbtjiaezug (%) (Auto)January 26, 2025 3:35pmNov2024 5:04pm33.2 %.[facility] [id number] 1[address] [facility] 84271Wqulaunbd (%) (Auto)January 26, 2025 3:35pmNov2024 5:04pm7.6 %.[facility] [id number] 1[address] [facility] [address]Xnwpcwkvycq (%) (Auto)January 26, 2025 3:35pmNov2024 5:04pm4.4 %.[facility] [id number] 1[address] [facility] 748[address]Hkassoxmu (%) (Auto)January 26, 2025 3:35pmNov2024 5:04pm0.5 %.[facility] [id number] 1[address] [facility] 499[address]Wjambpyiq RBC Relative Count (auto)January 26, 2025 3:35pm January 26, 2025 5:04pm0.1 /100{WBC}0-0.5[address] [facility] [id number] 1[address] [facility] 62[address]Ruawurrtmfe # (Auto)January 26, 2025 3:35pmNov2024 5:04pm3.7 10*3/uL1.8-7.7[facility] [address] [facility] [id number] 1[address] [facility] 533[address]Tqmlnxfyktm # (Auto)January 26, 2025 3:35pmNov2024 5:04pm2.2 10*3/uL1.00-4.8[facility] [id number] 1[address] [facility] 197[address]Jmagxfjoh # (Auto)January 26, 2025 3:35pmJanuary 26, 2025 5:04pm0.5 10*3/uL0.0-0.8[facility] [id number] 1[address] [facility] [address]Cqiqrjgopdy # (Auto)January 26, 2025 3:35pmJanuary 26, 2025 5:04pm0.3 10*3/uL0.0-0.45[facility] [id number] [address] [place] 8310270Basophils # (Auto)January 26, 2025 3:35pmJanuary 26, 2025 5:04pm0.0 10*3/uL0.0-0.2[address] [facility] [id number] 1[address] [facility] [address]Yopeyze LevelJanuary 26, 2025 3:35pmJanuary 26, 2025 5:22tz286 mg/dLAbove high -340ZLU recommended reference rangeRandom Glucose Reference Range is dependent on time and content of last meal. Glucose of more than 200 mg/dL in a nonstressed, ambulatory subject supports the diagnosisof Diabetes Mellitus.[facility] [id number] 1[address] [facility] [address]Fsvca Urea NitrogenJanuary 26, 2025 3:35pmJanuary 26, 2025 5:21pm14 mg/dL7-25[facility] [id number] 1[address] [facility] [address]PeeixpxxhoHbsbmqnm 18th, 2025 3:35pmJanuary 26, 2025 5:21pm 0.82 mg/dL0.70-1.30[facility] [id number] 1[address] [facility] 06556Zvohwjjio GFR (CKD-EPI)January 26, 2025 3:35pmJanuary 26, 2025 5:21pm> 60.0 mL/MinTrihealth Bethesda North [facility] [id number] 1[address] [facility] 65948Cftiiq LevelJanuary 26, 2025 3:35pmJanuary 26, 2025 5:36id435 mmol/C730-381DqpafxnuhTrihealth Bethesda North [facility] [id number] 1[address] [facility] 69858Oqcacvcxw LevelNov2024 3:35pmNov2024 5:21pm3.8 mmol/L3.5-5.1[address] [facility] [id number] [address] [place] [address] 16929Lpzrkgrn LevelNov2024 3:35pmNov2024 5:03pa184 mmol/E15-439TgzfnnexzTrihealth [facility] [id number] [address] [place] [address] 15079Awztyr Dioxide LevelNov2024 3:35pmNov2024 5:21pm31.7 mmol/LAbove high eaiybi21.0-31.0[facility] [id number] [address] [place] [address] 49497Szpgv GapJanuary 26, 2025 3:35pmJanuary 26, 2025 5:21pm 10.1 mEq/L6.0-15.0[facility] [id number] [address] [place] [address] 78171Tsadrvf LevelNov2024 3:35pmJanuary 26, 2025 5:21pm9.0 mg/dL8.6-10.3[address] [facility] [id number] [address] [place] [address] 15647Ogmlojxt Creatinine Clearance (ChemNov2024 3:35pm January 26, 2025 5:21pmN/[facility] [id number] [address] [place] [address] Diagnostic Imaging Reports Author Maurice Pereyra [facility] HospitalAuthoredOctober 2024 5:06pmReportDictated Date/TimeDictated ByStatusRadiology ReportOctober 2024 5:06pmMaurice Pereyra II MDcompleteMercy Health St[facility] Main [address] [address] MRI Report Signed Patient: Black Dumont MR#: [id number] : 1975 Acct:[id number] Age/Sex: 49 / M ADM Date: 5 Loc: [facility] Room: Type: [facility] Attending Dr: Gregory Jose DPM Copies [...] Pereyra M.D. 12/29/2024 5:15 PM Dictation Location: [facility]--27 Transcribed By: KIERA 12/29/241714 Dictated By: Maurice Pereyra II, MD 12/29/241705 Signed By: <Electronically signed by Maurice Pereyra II, MD in OV> 12/29/241714 Vital Signs Vital Reading Result Reference Range Collection Date/Time Height 74 [in_i] December 23, 2024 7:05spHrqvqd21.54 kgOctober 2024 7:36amHeart Rate90 /sqd43-818Suuxeke 15th, 2025 7:36amRespiratory rate12 /wor72-87Rbhajhj 2024 7:36amBP Isbfmeel870 mm[Hg]100-140October 2024 7:36amBP Lnoujmjlh67 mm[Hg]60-100October 2024 7:36amBMI (Body Mass Index)27.8 kg/n1Iyrgqyu 2024 7:03doKgtbyp16 [in_i]January 06, 2025 7:37izQolbxq95.88 kgOctober 2024 7:32amHeart Rate78 /mov23-335Mzqwoqd 2024 7:32amRespiratory rate18 /lrf18-11Dtkmtop 2024 7:32amOxygen saturation by Pulse kbxqnuii18 % 95-100October 2024 7:32amBP Byhrwwgw296 mm[Hg]100-140Oct2024 7:32amBP Awufryldd45 mm[Hg]60-100October 2024 7:32amBMI (Body Mass Index) 28.0 kg/c8Befowhs 2024 7:26zwVznnxf92 [in_i]January 27, 2025 3:11pm Hemuce77.52 kgNovember 19th, 2025 3:11pmHeart Rate87 /uzm91-271KzvmdhqoJanuary 27, 2025 3:11pmRespiratory rate12 /sbj24-33TltbhccgJanuary 27, 2025 3:11pmBP Pnhccvvm487 mm[Hg]100-140January 27, 2025 3:11pmBP Akvochiop86 mm[Hg]60-100January 27, 2025 3:11pmBMI (Body Mass Index)27.6 kg/u8LvfbqhedJanuary 27, 2025 3:11pm Advance Directives Advance Directive Response Recorded Date/ Time Advance Directives No March 23, 2019 12:15pm Insurance Providers Guarantor Black Dumont Address [address] [place] [address]Jogxkrk Info.Home Phone: Payer Group Member ID Coverage Type Subscriber Relationship to Subscriber Effective Date Expiration Date [facility] Id: [id number] E [employer] Id: [id number] [address] [place] [address] Home Phone: Email: [email or web address] Encounters Encounter Location(s) Arrival/Admit Date Discharge/Departure Date Discharge/Departure Disposition Provider(s) Departed Physician/ Provider Office Visit -[facility] December 23, 2024 8:27am December 23, 2024 9:09am Discharged to home care or self care (routine discharge) Jack Collins DO Departed Clinical -[facility] [address] Closed December 29, 2024 1:30pm December 29, 2024 1:31pm Discharged to home care or self care (routine discharge) Gregory Jose DPM Departed Physician/ Provider Office Visit -[facility] January 06, 2025 8:13am January 06, 2025 9:19am Discharged to home care or self care (routine discharge) Mil Agarwal MD Departed Clinical -Electrodiag nostics January 26, 2025 3:03pm January 26, 2025 3:04pm Discharged to home care or self care (routine discharge) Gregory Jose DPM Departed Physician/ Provider Office Visit -[facility] January 27, 2025 3:04pm January 27, 2025 3:53pm Discharged to home care or self care (routine discharge) Jack Collins DO Non-patient / Non-visit -[facility] N ovember 2024 7:30am [place]-patient / Tli-ejjmh-[facility]CP[facility]February 02, 2025 10:23amCatherine MIGUEL Owen Recent Diagnosis Onset Date Admit Date MARTHA [...] 3:04pm Plan of Treatment Author Mil Agarwal [facility] HospitalAuthoredOctober 2024 8:19am # Palpitations - Pt believes they are due to anxiety. Will r/o arrythmia. # Hypertension ??? well-controlled # Mixed HLD - Goal LDL < 100 mg/dL. # Other: Type 2 diabetes, obstructive sleep apnea, HLD. Never smoker. Exercise stress MPI performed at [facility] 08/08/2023 ??? exercised for 7 minutes, maximum [...] to review Zio results Author Brittany Lopes [facility] HospitalAuthoredOctober 2024 7:31amI have instructed this patient to [...] use, the patient reduces the risk for [place], CVA, HTN, cardiac dysrhythmias and sudden cardiac [...] PSA: 1.3 - 08/2024 Author Jack Collins [facility] HospitalAuthoredNovember 2024 9:45pmI have seen and examined Black for his preoperative evaluation. I have reviewed his preoperative medical management. - instructed to hold his Trulicity one dose prior to surgery - instructed to hold morning Humalog the morning of surgery - instructed to hold his morning Lantus insulin the morning of surgery Stable, continue Lisinopril/HCTZ w/o interruption Stable w/ A1C 6.6% Instructed to hold his Trulicity 7 days prior to surgery Instructed to hold his Humalog Insulin the morning of surgery Instructed to hold his morning Lantus Insulin the morning of surgery Stable, compliant w/ treatment. Stable, continue [...]
--- OUTSIDE RECORDS SUMMARY | 2025-02-09 09:55 | XMS_ITS | Clinical Summary ---
Author Organization [facility] Address [address] [place] [address] Care Team Providers Care Dairy Processing Supervisor Name Role Phone Alvino Rudolph MD Unavailable [phone] Jack Collins DO Primary Care Provider [phone] Allergies Active AllergyReactionsCriticalityNoted DateCommentsCodeineGI Upset,Hives, Intolerance,Itching,FexzNuy1212/10/2022 Medications MedicationSigDispense QuantityRefillsLast FilledStart DateEnd DateStatus acetaminophen (TYLENOL) 500 mg tablet Take 1,300 mg by mouth.Active ALPRAZolam (XANAX) 0.5 mg tablet Take 0.5 mg by mouth.09/30/2020ctive baclofen (LIORESAL) 20 mg tablet TAKE 1 TABLET BY MOUTH EVERYDAY AT DYPPIDE1712/05/2021ctive benazepril (LOTENSIN) 10 mg tablet Take 10 [...] pen Inject 120 mg subcutaneously once every month.ctive ubrogepant (UBRELVY) 100 mg tablet Take 1 [...] by mouth once daily. 90 capsule 5Active peg 3350-Electrolytes (GOLYTELY) 236-22.74-6.74 -5.86 gram suspension Indications:Abnormal CT scan, colon,Blood per rectum,Lower abdominal painRefer to printed prep instructions from your provider. 4000 mL 5Active linaclotide (LINZESS) 145 mcg capsule Indications:Irritable bowel syndrome with constipationTake 1 capsule by mouth once daily. Take capsule on an empty stomach at least 30 minutes before a meal at the same time each day. Capsule should be swallowed whole. DO NOT chew or crush 90 capsule 5Active Encounters DateTypeDepartmentCare UldpBibpqouqjug44/01/2025 11:[address] [facility] Gastroenterology [address] [place] [address] Teofilo Tovar, AAKASH.MARINE PLUMBER Abnormal CT scan, colon (Primary Dx); Blood per rectum; Lower abdominal pain; Irritable bowel syndrome with pkumelfitxiw66/28/1015Snlcke81/11/2025 8:30 AM EDT Office Visit Gastroenterology [address] [place] [address] Teofilo Tovar, TEAM ASSEMBLER.MARINE PLUMBER Gastroesophageal reflux disease without esophagitis (Primary Dx); Irritable bowel syndrome with ksivhwaoqzyt18/09/2025Travelfrom Last 3 Months Family History Medical HistoryRelationCommentsColon [...] RecordedNational Score (1-100), lower number is lower vlzf059112/16/2023State Score (1-10), lower number is lower rhvw094ata from: https://www.neighborhoodatlas.medicine.[facility].edu/. Last address used for jxjonszqbxq[address]/16/2023Sex and Gender InformationValueDate Recorded Sex Assigned at UhhteAoid98/02/2023 11:53 PM ESTLegal NncBibm6009/05/2021 2:10 PM EDTGender WhuzitgrEwpb92/02/2023 11:53 PM ESTSexual OrientationStraight 03/12/2022 11:53 PM EST Last Filed Vital Signs Vital SignReadingTime TakenCommentsBlood Ighevdok987/8209 8:32 AM EDT Esdqh965911/19/2024 8:32 AM EDTTemperature--Respiratory Mofv130003/13/2022 11:15 AM ESTOxygen Yngznrzguq74%03/13/2022 11:15 AM ESTInhaled Oxygen Concentration-- Livnie85.3 kg (210 lb)11/19/2024 8:32 AM CHITqxwbx304.5 cm (6' 3 )03/13/2022 10:10 AM ESTBody Mass Index26.25003/13/2022 10:10 AM EST Plan of Treatment DateTypeDepartmentCare Team (Latest Contact Info)Bcckgzoacki99/01/2025 11:59 PM ESTAnesthesia Event Ambulatory Surgery [address] [place] [address] Zohra Bowen APRN.CW OPERATOR [address] [place], [place] [address] 02/16/2025 2:15 PM ESTAppointment Ambulatory Surgery [address] [place] [address] Jaspal Gó[place] [address] [place] [address] scan, colon [R93.3]Health MaintenanceDue DateLast DoneComments Anxiety Mrjtqaerz47/09/1994Depression Nbecmnbyl62/09/1994HIV Tkdpsxkka36/09/1994 Hepatitis C Nkngfsmxc89/09/1994DTaP,Tdap,Td Vaccine (1 - Tdap)05/17/1994 Hepatitis B Vaccine (1 of 3 - 19+ 3-dose series)05/17/1994Lipid Screening 05/17/2010CT Fulotbveaflm84/09/2021ologuard (FIT-DNA)05/17/2020Fecal Occult Blood05/17/20202451Sicswbciiqjgk11/09/2021ovid-19 Vaccine ( season) /, 02/11/2021, 04/13/2020, Additional history exists Jncncoipkyj29, 03/13/2022olorectal Cancer Iahwxntre10/03/2028 Diabetes Qxpibmfye55Influenza MnutylkQuxqfajdv09/15/2025, 12/23/2023, 11/28/2022, Additional history exists Procedures Procedure NamePriorityDate/TimeAssociated DiagnosisCommentsCOLONOSCOPY LLGMFOCHEOMrkvvyk10/03/2023 10:34 AM EST Diarrhea, unspecified type from Last 3 Months or Most Recently Relevant to Health Maintenance Results * COLONOSCOPY DIAGNOSTIC (03/13/2022 10:34 AM EST)Anatomical RegionLaterality ModalityOtherSpecimen (Source)Anatomical Location / LateralityCollection Method / VolumeCollection TimeReceived Time03/13/2022 10:34 AM EST Narrative 03/13/2022 11:07 AM EST [facility] Gastroenterology Gastrointestinal Endoscopy Patient Name: Donell Dumont Procedure Date: 03/13/2022 10:34 AM Date of : 1975 Admit Type: Outpatient Age: 46 Room: [place] [address] Gender: Male Note Status: Assistant Branch Operations Manager Override Attending MD: Vashti Llamas DO Procedure: [...] Procedure Code(s): ? --- Professional --- ? 60889, Colonoscopy, flexible; with biopsy, single ? or multiple Diagnosis Code(s): ? --- Professional --- ? K64.8, Other hemorrhoids ? D12.3, Benign neoplasm of transverse colon (hepatic ? flexure or splenic flexure) ? K52.9, Noninfective gastroenteritis and colitis, ? unspecified ? K57.30, Diverticulosis of large intestine without ? perforation or abscess without bleeding CPT copyright 2020 [employer]. All rights reserved. The codes documented in this report are preliminary and upon logistics team leader review may be revised to meet current [...] Most Recently Relevant to Health Maintenance Insurance Care Teams Team MemberRelationshipSpecialtyStart DateEnd Jack Collins DO [address] [facility] [place] [address] PCP - GeneralInternal Jprccdfo41/24/22 Alvino Rudolph MD [address] [facility] [address] [place] [address] [facility]09/05/21
--- OUTSIDE RECORDS SUMMARY | 2025-02-09 09:55 | XMS_ITS | Encounter Summary ---
Author Organization [facility] Address [address] [place] [address] Care Team Providers Care Hotel Breakfast Attendant Name Role Phone Jack Collins Primary Care Provider [phone] Encounter Details DateTypeDepartmentCare Team (Latest Contact Info)Odzwqndeauq42/18/2025amboo flowsheet [facility] [address] [place] [address] Gregory Jose, DPShawn [address] [address] Social History Tobacco UseTypesPacks/DayYears UsedDateSmoking [...] Assigned at BirthMale 04/29/2024 2:06 PM ESTLegal JoyUnbh2105/23/2022 7:00 PM EDTGender IdentityMale 04/29/2024 2:06 PM ESTSexual UutjyixqdhqLnhsgglc56/19/2025 2:06 PM ESTdocumented as of this encounter Plan of Treatment DateTypeDepartmentCare Team (Latest Contact Info)Ubynrxetcan62/03/2025 3:20 PM ESTOffice Visit [facility] [address] [place] [address] Gregory Jose DPM [address] [address] documented as of this encounter Visit Diagnoses Not on filedocumented in this encounter Care Teams Team MemberRelationshipSpecialtyStart DateEnd Date Jack Collins DO [address] [place] [address] PCP - GeneralInternal Medicine07/10/23documented as of this encounter
--- OUTSIDE RECORDS SUMMARY | 2025-02-09 09:55 | XMS_ITS | Encounter Summary ---
Author Organization [facility] Address [address] [place] [address] Care Team Providers Care Wire Annealer Name Role Phone DennisJack Sofia SINGH Primary Care Provider [phone] Encounter Details DateTypeDepartmentCare Team (Latest Contact Info)Vzjeluhcgtw52/18/2025External Result Encounter [facility] External Department Unsolicited Gregory Jose DPM [address] [address] Social History Tobacco UseTypesPacks/DayYears UsedDateSmoking Tobacco: NeverSmokeless [...] Assigned at BirthMale 04/29/2024 2:06 PM ESTLegal GcdDbbt7205/23/2022 7:00 PM EDTGender IdentityMale 04/29/2024 2:06 PM ESTSexual HjbqzbvuleiEtbmiepu10/19/2025 2:06 PM ESTdocumented as of this encounter Plan of Treatment DateTypeDepartmentCare Team (Latest Contact Info)Nlwmsbebtfj38/03/2025 3:20 PM ESTOffice Visit [facility] [address] [place] [address] Gregory Jose DPM [address] [address] documented as of this encounter Procedures Procedure NamePriorityDate/TimeAssociated DiagnosisCommentsBASIC METABOLIC PANEL Aejqutm5401/26/2025 3:35 PM EST documented in this encounter Results * (ABNORMAL) Basic metabolic panel (01/26/2025 3:35 PM EST)ComponentValueRef RangeTest MethodAnalysis TimePerformed AtPathologist KrojcoaifSuysrzy462(H)70 - 100 mg/dL01/26/2025 5:21 PM [facility] CtrComment: Random Glucose Reference Range is dependent on time and content of last meal. Glucose of more than 200 mg/dL in a nonstressed, ambulatory subject supports the diagnosis of Diabetes Mellitus. ADA recommended reference range AJK859 - 25 mg/dL01/26/2025 5:21 PM [facility] CtrCREATININE 0.820.70 - 1.30 mg/dL01/26/2025 5:21 PM [facility] ESTIMATED GFR>60. 5:21 PM [facility] MnqVbzsax776 136 - 145 mmol/L103/28/2024 5:21 PM [facility] CtrPotassium, Bld3.83.5 - 5.1 mmol/L103/28/2024 5:21 PM [facility] Tiqvspib29530 - 107 mmol/L103/28/2024 5:21 PM [facility] Carbon Ebngikm75.7(H)21.0 - 31.0 mmol/L103/28/2024 5:21 PM [facility] CtrAnion Gap10.16.0 - 15. 5:21 PM [facility] CtrCalcium9.08.6 - 10.3 mg/dL01/26/2025 5:21 PM [facility] CtrSpecimen (Source)Anatomical Location / LateralityCollection Method / VolumeCollection TimeReceived TimeOtherTopography unknown / Krqfxty8801/26/2025 3:35 PM EST01/26/2025 3:36 PM EST Narrative Authorizing ProviderResult TypeResult StatusNicblanca Jose DPMLAB BLOOD ORDERABLESFinal ResultPerforming OrganizationAddressCity/State/ZIP CodePhone Number [facility] [address] [place] [address], [facility] [address] [place] [address] documented in this encounter Visit Diagnoses Not on filedocumented in this encounter Care Teams Team MemberRelationshipSpecialtyStart DateEnd Date Jack Collins DO [address] [place] [address] PCP - GeneralInternal Medicine07/10/23documented as of this encounter
--- OUTSIDE RECORDS SUMMARY | 2025-02-09 09:55 | XMS_ITS | Clinical Summary ---
Author Organization [employer] [facility] Address [id number] [address] [place] [address] Care Team Providers Care Music Pastor Name Role Phone DennisJack Primary Care Provider [phone] Allergies No known active allergies Medications MedicationSigDispense [...] (03/28/2022): Added automatically from request for surgery [id number] Lumbar simzlgnxrcv18/16/2022Cervical spondylosis without /17/2021 Overview (10/25/2020): Added automatically from request for surgery [id number] Lumbosacral spondylosis without mvbzqazlhc24/06/2018 Overview (04/16/2017): Added automatically from request for surgery [id number] Disorder of bcpamf7912/20/2016 Overview (12/20/2016): Added automatically from request for surgery [id number] DDD (degenerative disc disease), lndinz5111/26/2016 Family History Medical HistoryRelationNameCommentsCancerFatherBladderDiabetesFatherHeart diseaseFatherDiabetesMotherRelationNameStatusCommentsFatherAliveMotherAlive Social History Tobacco UseTypesPacks/DayYears UsedDateSmoking Tobacco: NeverSmokeless Tobacco: Never Tobacco Cessation:Counseling Given: Not Answered Alcohol UseStandard Drinks/WeekCommentsNo0 (1 standard drink = 0.6 oz pure alcohol)ChildcareAnswerDate KqtuffqsKuhuxfquyWzntkot75/13/2019EmploymentAnswer Date BdktsdymSikkpyvfexAxqafjx17/13/2019Hunger ScreeningAnswerDate Recorded Within the past 12 months we worried whether our food would run out before we got money to buy more.Never True04/12/2023Within the past 12 months the food we bought just didn't last and we didn't have money to get more.Never True 06/20/2022urpose - LifeAnswerDate RecordedPurpose and direction in lifeUnknown 04/21/2020ex and Gender InformationValueDate RecordedSex Assigned at BirthMale 01/07/2021 9:19 AM EDTLegal VfpTlrp8811/15/2016 11:20 AM EDTGender IdentityMale 01/07/2021 9:19 AM EDTSexual QwitlxcvietFiyiywdy13/30/2021 9:19 AM EDT Last Filed Vital Signs Vital SignReadingTime TakenCommentsBlood Skzqqoel408/8306/20/2022 11:05 AM EDT Rownl387506/20/2022 11:05 AM KEPQbpjjjlbuef12.1 ??C (96.9 ??F)06/08/2022 8:47 AM EDTRespiratory Wtjs009706/08/2022 8:47 AM EDTOxygen Ncmpxlkmcd18%06/20/2022 11:05 AM EDTInhaled Oxygen Concentration--Sovtur78.3 kg (212 lb 6.4 oz)06/20/2022 11:05 AM GEPRojxlx829.5 cm (6' 3 )05/16/2022 2:58 PM ESTBody Mass Index26.55 05/16/2022 2:58 PM EST Plan of Treatment Health MaintenanceDue DateLast DoneCommentsDepression Xuohxpelr73/09/1988Tobacco Lqcodwbnn16/09/1988DTaP,Tdap and Td Vaccines (1 - Tdap)05/17/1994Adult BMI Jnhczbbsf24OVID-19 Vaccine (4 - season)2024 02/11/2021, 04/13/2020, 03/24/2020Influenza Fruixxd86/01/88535903/25/2020 Medical Devices ImplantedTypeAreaManufacturerDevice IdentifierShelf Expiration DateModel / Serial / LotMeshMeshDescription:Right inguinal hernia Insurance Care Teams Team MemberRelationshipSpecialtyStart DateEnd Date Jack Collins DO [address] [place] [address] PCP - Khwuqwz38/2/17
--- OUTSIDE RECORDS SUMMARY | 2025-02-09 09:55 | XMS_ITS | Encounter Summary ---
Author Organization [facility] Address [address] [place] [address] Care Team Providers Care Automation Architect Name Role Phone Alvino Rudolph MD Unavailable [phone] Jack Collins DO Primary Care Provider [phone] Source Comments In the event this information is protected by the Federal Confidentiality of Alcohol and Drug AbusePatient Records regulations: The Federal rules restrict any use of the information to criminally investigate or prosecute any alcohol or drug abuse patient.[facility] Encounter Details DateTypeDepartmentCare Team (Latest Contact Info)Ahynqpidpge19/28/2025Travel Social History Tobacco UseTypesPacks/DayYears UsedDateSmoking Tobacco: NeverSmokeless Tobacco: NeverAlcohol UseStandard Drinks/WeekCommentsNot Currently0 (1 standard drink = 0.6 oz pure alcohol)AUDIT-CAnswerDate RecordedQ1: How often do you have a drink containing alcohol?Never11/19/2024verage Number of DrinksNot on file11/19/2024 Frequency of Binge DrinkingNot on file11/19/2024rea Deprivation IndexAnswerDate RecordedNational Score (1-100), lower number is lower tdbd5509/07/2024State Score (1-10), lower number is lower ugta797ata from: https://www.neighborhoodatlas.medicine.[facility].edu/. Last address used for c[address] Teo Epstein12/16/2023Sex and Gender InformationValueDate Recorded Sex Assigned at PvjvwGitg40/02/2023 11:53 PM ESTLegal LpzAqnc3909/05/2021 2:10 PM EDTGender ViaztyhtVmob06/02/2023 11:53 PM ESTSexual OrientationStraight 03/12/2022 11:53 PM ESTdocumented as of this encounter Plan of Treatment DateTypeDepartmentCare Team (Latest Contact Info)Pqdmcxqvaxm23/01/2025 11:59 PM ESTAnesthesia Event Ambulatory Surgery [id number] [place] [address] Zohra Bowen APRN.HAND SCRAPER [address] [place] [address] 02/16/2025 2:15 PM ESTAppointment Ambulatory Surgery [address] [place] [address] Jaspal Gó[place] [address] [place] [address] scan, colon [R93.3]documented as of this encounter Visit Diagnoses Not on filedocumented in this encounter Care Teams Team MemberRelationshipSpecialtyStart DateEnd Date Jack Collins DO [address] [facility] [place] [address] PCP - GeneralInternal Wvejpayi19/24/22 Alvino Rudolph MD [address] [facility] [address] [place] [address] ReferringGastroenterology09/05/21documented as of this encounter
--- OUTSIDE RECORDS SUMMARY | 2025-02-09 09:55 | XMS_ITS | Encounter Summary ---
Author Organization [facility] Address [address] [place] [address] Care Team Providers Care Induction Machine Setter Name Role Phone DennisJack Sofia SINGH Primary Care Provider [phone] Encounter Details DateTypeDepartmentCare Team (Latest Contact Info)Xilzcpohdbw84/26/2025bstract [facility] [address] [facility] [address] [place] [address] Gregory Jose DPM [address] [facility] [address] [place] [address] Social History Tobacco UseTypesPacks/DayYears UsedDateSmoking [...] Assigned at BirthMale 04/29/2024 2:06 PM ESTLegal HplRhav1005/23/2022 7:00 PM EDTGender IdentityMale 04/29/2024 2:06 PM ESTSexual AienempsfpeJolehabp29/19/2025 2:06 PM ESTdocumented as of this encounter Plan of Treatment DateTypeDepartmentCare Team (Latest Contact Info)Ieufhqhgvkf48/03/2025 3:20 PM ESTOffice Visit [facility] [address] [place] [phone] Gregory Jose, MER [address] [address] documented as of this encounter Visit Diagnoses Not on filedocumented in this encounter Care Teams Team MemberRelationshipSpecialtyStart DateEnd Date Jack Collins DO [address] [place] [phone] PCP - GeneralInternal Medicine07/10/23documented as of this encounter
--- OUTSIDE RECORDS SUMMARY | 2025-02-09 09:55 | XMS_ITS | Encounter Summary ---
Author Organization [facility] Address [address] [place] [address] Care Team Providers Care Footwear Sales Coordinator Name Role Phone DennisJack Sofia SINGH Primary Care Provider [phone] Encounter Details DateTypeDepartmentCare Team (Latest Contact Info)Cmhazprjwcz18/18/2025bstract [facility] [address] [facility] [address] [place] [address] Gregory Jose DPM [address] [facility] [address] [place] [address] Social History Tobacco UseTypesPacks/DayYears UsedDateSmoking [...] Assigned at BirthMale 04/29/2024 2:06 PM ESTLegal ZzjJqgt9605/23/2022 7:00 PM EDTGender IdentityMale 04/29/2024 2:06 PM ESTSexual QlopqszkllrHrdgrpag47/19/2025 2:06 PM ESTdocumented as of this encounter Plan of Treatment DateTypeDepartmentCare Team (Latest Contact Info)Rmcvgadlrsl98/03/2025 3:20 PM ESTOffice Visit [facility] [address] [place] [phone] Gregory Jose, MER [address] [address] documented as of this encounter Visit Diagnoses Not on filedocumented in this encounter Care Teams Team MemberRelationshipSpecialtyStart DateEnd Date Jack Collins DO [address] [place] [address] PCP - GeneralInternal Medicine07/10/23documented as of this encounter
--- OUTSIDE RECORDS SUMMARY | 2025-02-09 09:56 | XMS_ITS | CCD ---
Author Organization [facility] Inform ion [facility] Care Team Providers Care Art Editor Name Role Phone Alvino Rudolph Unavailable Sandie Luther Unavailable DO Jack Ortega Primary Care Provider [phone] DO Geo Ray Attending Provider MD Sandie Luther Attending Provider Alvino Rudolph Unavailable Jack Ortega DO Primary Care Provider ASNDIE LUTHER Attending Unavailable Jack Ortega Primary Care Unavailable SANDIE LUTHER Admitting Unavailable SANDIE LUTHER Attending Unavailable Jack Ortega Primary Care Unavailable SANDIE LUTHER Admitting Unavailable Alvino Rudolph Unavailable Jack Ortega DO Primary Care Provider DO Jack Ortega Primary Care Provider DO Jack Ortega Attending Provider [phone] Bridget Laird Unavailable Unavailable Raad Cline Unavailable [...] JORDAN, DR TORIBIO Primary Care Unavailable BEDDO NEWTON CHRISTIAN Referring Unavailable UNKNOWN, PCP Primary Care [...] Unavailable Cline, Dr. Raad Smith Attending Unavai labstfef Newton, Dr. Kirsty Boyd Attending Unavaila ble UNKNOWN, PCP Referring Unavailable UNKNOWN, PCP Primary Care Unavailable Klaudia LEGER, Alvino Unavailable Jack Ortega DO Primary Care Provider DO Jack Ortega Primary Care Provider MD Mil Agarwal Attending Provider DO Jack Ortega Referring Provider [phone] DO Jack Ortega Attending Provider [phone] Jack Ortega MD Primary Care Provider Layne LEGER, Feliciano Chapa Attending Unavailab le Ball , [facility] Primary Care Unavail able Feliciano Tillman MD Attending Unavailab le Ball , [facility] Care Unavail able Feliciano Tillman MD Attending Unavailab le Ball , [facility] Primary Care Unavail able Feliciano Tillman MD Attending Unavailab le Ball , [facility] Primary Care Unavail able Feliciano Tillman MD Admitting Unavailab Feliciano Reynolds MD Attending Unavailab le Ball , [facility] Primary Care Unavail able Bonnie LEGER, Gu[facility] [employer] Unavail able Feliciano Tillman MD Attending Unavailab le Ball , [facility] Primary Care Unavail able Feliciano Tillman MD Attending Unavailab le Ball DO, [facility] Primary Care Unavail able Heaven LEGER, Alejandro Robins Attending Unavail able Jordan SINGH, [facility] Primary Care Unavail able Feliciano Tillman MD Attending Unavailab le Ball , [facility] Primary Care Unavail able Feliciano Tillman MD Attending Unavailab le Ball DO, [facility] Primary Care Unavail able Feliciano Tillman [...] Provider Gita Valentin APRN Attending Provider Son FINN-CIRCUS TRAINER-CLeslye Attending Provider Ball DO, Jack E Primary Care Provider Ball DO, Jack E Primary Care Provider SHYANNE RODRÍGUEZ Attending Unavailable JACK ORTEGA Primary Care Unavailable SHYANNE RODRÍGUEZ Attending Unavailable JACK ORTEGA E Primary Care Unavailable Alvino Rudolph MD Unavailable Ball DO, Jack E Primary Care Provider Ball DO, Jack Primary Care Provider Ball DO, Jack Attending Provider [phone] Ball DO, Jack Primary Care Provider Fazal DPMGregory Attending Provider Gregory Diehl Attending Unavailable Zena Diehls Shayla Admitting Unavailable Jordan Jack Primary Care Unavailable Ball , Jack Primary Care Provider Ball , Jack Attending Provider [phone] Mil Agarwal MD Attending Provider LESLYE CLINE [...] A Referring Unavailable JEANETH FARRAR Attending Unavailable GREGORY DIEHL Referring Unavailable JEANETH FARRAR Attending Unavailable GREGORY DIEHL Referring Unavailable GREGORY DIEHL Attending Unavailable JENNIFER PATIÑO Attending Unavailable GREGORY DIEHL Referring Unavailable GREGORY DIEHL Attending Unavailable Allergies Allergy ClassificationReported Allergen(s)Allergy TypeDate of OnsetReaction(s) Facility (7 sources)No AlertPropensity to adverse reactions to uloa54-07-1342[facility] (20 sources)Codeine; Translations: [codeine]Drug Rloufqg67-55-2026Gotsd, Itching, Rash, GI Upset, IntoleranceNOMS Healthcare (1 source)HYDROcodoneDrug Uwblahd47-80-6672UffosjwyyT[facility] Medications Current Medications MedicationDrug Class(es)DatesSig (Normalized)Sig (Original)Accu-Chek Advantage Meter (20 sources)Start: 29-68-2067Fujic: 81-94-4319Fpvz-Chek Advantage Meter use as directed for 365 days July, Activeacetaminophen 500 mg oral tablet (14 sources)acetaminophen (TYLENOL) 500 mg tablet Take 1,300 mg by mouth. Active Comment on above:Take 1,300 mg by mouth.amitriptyline hydrochloride 25 mg oral tablet (20 sources)Tricyclic AntidepressantStart: 18-79-6825bsrp 0.5-1 tablets by mouth once daily at bedtimeamitriptyline (Elavil) 25 MG tablet Indications: Obstructive sleep apnea (adult) (pediatric) TAKE 1/2 TO 1 TABLET BY MOUTH EVERY DAY AT BEDTIME 90 tablet 3 01/27/2024 Activebaclofen 20 mg oral tablet (20 sources)gamma-Aminobutyric Acid-ergic AgonistStart: 07-31-2023 End: 53-03-0858yrzi 1 tablet by mouth once daily at bedtimeBaclofen 20 mg tablet Active 0 .ROUTE .COMPLEX 90 3 July 28, 2024 7:42am TAKE 1 TABLET BY MOUTH AT BEDTIME Complies with drug therapyStart: 12-05-2021 End: 40-51-7452wdtm 1 tablet by mouth once daily at bedtimeBaclofen 20 mg tablet Discontinued 20 MG PO Daily at bedtime May 28, 2023 12:00am July 31, 2023 2:56pmStart: 03-27-2019 End: 66-00-7828spcq 1 tablet by mouth at bedtimeBaclofen 20 mg tablet Discontinued 20 MG PO Bedtime March 27, 2019 1:00am July 18, 2021 11:38am Baclofen ActiveComment on above:TAKE 1 TABLET BY MOUTH EVERYDAY AT BEDTIME benazepril hydrochloride 20 mg / hydroCHLOROthiazide 25 mg oral tablet (20 sources)Thiazide Diuretic, Angiotensin Converting Enzyme InhibitorStart: 39-29-5091umdk 1 tablet by mouth once dailyBenazepril-Hydrochlorothiazide 20-25 mg tablet Active 0 .ROUTE .COMPLEX 90 3 June 07, 2024 10:09am TAKE 1 TABLET BY MOUTH EVERY DAY FOR 90 DAYS Complies with drug therapyStart: 07-10-2023 End: 16-17-9726lzlb 1 tablet by mouth once daily in the morningBenazepril- Hydrochlorothiazide 20-25 mg tablet Discontinued 1 TAB PO Every morning November 25, 2023 12:00am June 07, 2024 10:09amStart: 06-20-2023 End: 53-26-3253musu 1 tablet by mouth once dailyBenazepril-Hydrochlorothiazide 20-12.5 mg tablet Discontinued 0 .ROUTE .COMPLEX 90 1 June 20, 2023 7:46pm July 10, 2023 3:21pm TAKE 1 TABLET BY MOUTH DAILYStart: 05-29-2023 End: 95-93-9151rrqy 1 tablet by mouth once dailyBenazepril-Hydrochlorothiazide 20-12.5 mg tablet Discontinued 1 TAB PO Daily May 29, 2023 12:00am June 20, 2023 7:47pmbenazepril/hydrochlorothiazide (LOTENSIN HCT ORAL) Active benazepril/hydrochlorothiazide (LOTENSIN HCT ORAL)Blood-Glucose Meter,Continuous (Freestyle Maicol 3 [place]) misc (5 sources)Start: 87-36-1164Yzpjq-Glucose Meter,Continuous (Freestyle Maicol 3 [place]) misc Active 0 .Route September 20, 2023 12:00am As directedBlood-Glucose Sensor (Freestyle Maicol 3 Plus Sensor) device (17 sources)Start: 46-17-9417Yupzx-Glucose Sensor (Freestyle Maicol 3 Plus Sensor) device Active 0 .ROUTE .COMPLEX 1 December 16, 2024 9:53am Type 2 diabetes mellitus with hyperglycemia Type 2 diabetes mellitus with hyperglycemia 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 CHANGE EVERY 15 DAYS DIRECTEDStart: 12-45-8732Uetmk-Glucose Sensor (Freestyle Maicol 3 Plus Sensor) device Active 0 .ROUTE .COMPLEX 1 December 9:53am CHANGE EVERY 15 DAYS DIRECTEDStart: 05-30-2024 End: 57-09-7759Bduzk-Glucose Sensor (Freestyle Maicol 3 Plus Sensor) device Discontinued 0 .ROUTE .COMPLEX 1 May 30, 2024 8:44am December 16, 2024 9:53am Type 2 diabetes mellitus with hyperglycemia Type 2 diabetes mellitus with hyperglycemia residential (current) use of insulin CHANGE EVERY 15 DAYS DIRECTEDStart: 05-30-2024 End: 37-04-0577Oalne-Glucose Sensor (Freestyle Maicol 3 Plus Sensor) device Discontinued 0 .ROUTE .COMPLEX 1 May 30, 2024 8:44am December 16, 2024 9:53am CHANGE EVERY 15 DAYS DIRECTEDStart: 56-16-4399Pkowg-Glucose Sensor (Freestyle Maicol 3 Plus Sensor) device Active 0 .ROUTE .COMPLEX 1 May 30, 2 025 8:44am CHANGE EVERY 15 DAYS DIRECTEDStart: 12-08-2023 End: 81-38-1888Xpsfb-Glucose Sensor (Freestyle Maicol 3 Plus Sensor) device Discontinued 0 .ROUTE .MEDSUPPLY 1 December 08, 2023 12:00am May 30, 2024 8:45am Type 2 diabetes mellitus with hyperglycemia Type2 diabetes mellitus with hyperglycemia 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 As directedStart: 12-08-2023 End: 88-83-0299Tpdoy-Glucose Sensor (Freestyle Maicol 3 Plus Sensor) device Discontinued 0 .ROUTE .MEDSUPPLY December 08, 2023 12:00am May 30, 2024 8:45am As directedStart: 73-80-2698Dcrex-Glucose Sensor (Freestyle Maicol 3 Plus Sensor) device Active 0 .ROUTE .MEDSUPPLY 1 December 08, 2023 12:00am As directedBlood-Glucose,Rapid Transit Operator,Cont (Freestyle Maicol 3 [place]) misc (6 sources)Start: 66-62-1309Hhpvd-Glucose,Rapid Transit Operator,Cont (Freestyle Maicol 3 [place]) misc Active 0 .Route 1 0 September 20, 2023 12:00am Diabetes mellitus with hyperglycemia Type 2 diabetes mellitus with hyperglycemia As directedStart: 18-70-0231Hmxjm-Glucose,Rapid Transit Operator,Cont (Freestyle Maicol 3 [place]) misc Active 0 .Route 1 September 20, 2023 12:00am As fnribybm57 hr buPROPion hydrochloride 200 mg extended release oral tablet (20 sources)AminoketoneStart: 90-38-4441uvxf 1 tablet by mouth once daily Wellbutrin SR 200 MG 12 hr tablet Take 200 mg by mouth Daily 02/24/2024 Active Start: 64-96-4743exhq 1 tablet by mouth every twelve hoursBupropion Hcl 200 mg tablet sustained-release 12 hr Active 200 MG PO September 29, 2024 12:00am Complies with drug therapyDulaglutide (20 sources)GLP-1 Receptor AgonistStart: 09-33-2732Gbyoyibynty 4.5 mg/0.5 mL pen injector Active 4.5 MG SUBCUT every week 6 December 30, 2024 7:06pm Complies with drug therapyStart: 12-23-2023 End: 65-32-5235Hrocwjblxqw 4.5 mg/0.5 mL pen injector Discontinued 4.5 MG SUBCUT every week 6 December 23, 2023 3:55pm December 30, 2024 7:06pmStart: 01-18-0061Paqbm: 14-19-1993Wligqgshenr 4.5 mg/0.5 mL pen injector Active 4.5 MG SUBCUT every week 6 December 23, 2023 3:55pm Complies with drug therapy Start: 12-55-2235Edqxa: 36-52-7026vnpzyx 4.5 mg by subcutaneous injection every weekDulaglutide Active 4.5 MG SUBCUT every week 6 December 23, 2023 3:55pm Start: 12-23-2023 End: 14-45-1143Ilpivuzeudo 4.5 mg/0.5 mL pen injector Discontinued 4.5 MG SUBCUT every week 6 90 December 23, 2023 3:02pm December 23, 2023 3:55pmStart: 12-23-2023 End: 75-42-9526Mhnyrhkiysk 4.5 mg/0.5 mL pen injector Discontinued 4.5 MG SUBCUT every week 6 December 23, 2023 3:02pm December 23, 2023 3:55pmStart: 12-23-2023 End: 07-68-6347vkjpfz 4.5 mg by subcutaneous injection every weekDulaglutide Discontinued 4.5 MG SUBCUT every week 6 December 23, 2023 3:02pm December 2243:55pmStart: 10-29-2023 End: 61-09-4658Rvibxcdddko 3 mg/0.5 mL pen injector Discontinued 3 MG SUBCUT every week 6 90 October 29, 2023 10:09am December 23, 2023 3:04pmStart: 10-29-2023 End: 72-02-4316Cwyysufwpfp 3 mg/0.5 mL pen injector Discontinued 3 MG SUBCUT every week 6 October 29, 2023 10:09am December 23, 2023 3:04pmStart: 10-29-2023 End: 56-79-4186xkcuka 3 mg by subcutaneous injection every weekDulaglutide Discontinued 3 MG SUBCUT every week 6 October 29, 2023 10:09am December 23, 2023 3:04pmStart: 57-39-5407ehgrrl 3 mg by subcutaneous injection every week Dulaglutide Active 3 MG SUBCUT every week 6 October 29, 2023 10:09amStart: 08-27-2023 End: 77-62-2511Sdcmkjjsxyr (Trulicity) 1.5 mg/0.5 mL pen injector Discontinued 1.5 MG SUBCUT every week 6 90 0 October 28, 2023 1:30pm October 29, 2023 10:10amStart: 08-27-2023 End: 71-75-5626Ngzpklwfamu 1.5 mg/0.5 mL pen injector Discontinued 3 MG SUBCUT every week 12 84 0 August 27, 2023 10:36am August 27, 2023 11:25amStart: 08-27-2023 End: 74-00-2078crljpq 3 mg by subcutaneous injection every weekDulaglutide Discontinued 3 MG SUBCUT every week 12 84 August 27, 2023 10:36am August 27, 2023 11:25amStart: 08-20-2023 End: 28-23-2084Opkppghoyeu 3 mg/0.5 mL pen injector Discontinued 3 MG SUBCUT every week 6 84 0 August 20, 2023 6:07pm August 27, 2023 10:36amStart: 08-20-2023 End: 54-88-0424Mgybliabeha 3 mg/0.5 mL pen injector Discontinued 3 MG SUBCUT every week 6 84 August 20, 2023 6:07pm August 27, 2023 10:36amStart: 08-20-2023 End: 02-58-4616rekotc 3 mg by subcutaneous injection every weekDulaglutide Discontinued 3 MG SUBCUT every week 6 August 20, 2023 6:07pm August 27, 2023 10:36amStart: 08-12-2023 End: 42-66-3441Wfwleqoaxfm 3 mg/0.5 mL pen injector Discontinued 1.5 MG SUBCUT every week 1 0 August 12, 2023 1:19pm August 20, 2023 6:08pmStart: 08-12-2023 End: 63-68-1220Ingxxwclkdn 3 mg/0.5 mL pen injector Discontinued 1.5 MG SUBCUT every week 04 07August 12, 2023 1:19pm August 20, 2023 6:08pmStart: 08-12-2023 End: 83-42-1004trhhkj 1.5 mg by subcutaneous injection every weekDulaglutide Discontinued 1.5 MG SUBCUT every week 04 07August 12, 2023 1:19pm August 20, 2023 6:08pmStart: 07-10-2023 End: 76-61-2388Wjwjtmwmjss 1.5 mg/0.5 mL pen injector Discontinued 1.5 MG SUBCUT every week 2 July 10, 2023 3:23pm August 12, 2023 1:19pmStart: 07-09-2023 End: 85-34-8998Dbowevbsjaw 1.5 mg/0.5 mL pen injector Discontinued 0.75 MG SUBCUT every week 2 July 09, 2023 6:49am July 10, 2023 3:23pmStart: 07-09-2023 End: 64-39-7524sjgver 0.75 mg by subcutaneous injection every weekDulaglutide Discontinued 0.75 MG SUBCUT every week 2 July 09, 2023 6:49am July 10, 2023 3:23pmStart: 06-12-2023 End: 15-57-4871Vdjbdgdmkpd (Trulicity) 0.75 mg/0.5 mL pen injector Discontinued [...] WEEK FOR 90 DAYS ActiveFreeStyle Maicol 2 [place] Systm (15 sources)Start: 76-93-0867EmndTewyq Maicol 2 [place] Systm Use to test home BS transcutaneous 6-8x daily for 365 days Aug, ActiveStart: 08-28-2022 FreeStyle Maicol 2 Sensor - (15 sources)Start: 34-82-2149CfwxUwsih Maicol 2 Sensor - Use to test home BS transcutaneous 6-8x daily for 30 days Aug, ActiveStart: .5 ml fremanezumab-vfrm 150 mg/ml auto-injector (20 sources)fremanezumab-vfrm (AJOVY AUTOINJECTOR) 225 mg/1.5 mL auto-injector ActiveAjovy 225 MG/1.5ML as directed Subcutaneous monthly Active1 ml galcanezumab-gnlm 120 mg/ml auto-injector (20 sources)Start: 04-06-2024 End: 92-75-8928jifydl 120 mg by subcutaneous injection every monthEMGALITY PEN 120 mg/mL pen Inject 120 mg subcutaneously once every month. 04/06/2024 04/01/2025 ActiveStart: 01-07-2024 End: 98-81-4841bnvpgipneqpj (Emgality) 120 MG/ML auto-injector Indications: Chronic migraine with aura without status migrainosus, not intractable Inject 1 Syringe (120 mg) under the skin every 30 (thirty) days 1 mL 11 04/06/2024 04/01/2025 ActiveStart: 18-08-6586gclsez 120 mg by subcutaneous injection every monthGalcanezumab-Gnlm 120 mg/mL syringe Active 120 MG SUBCUT every month May 28, 2023 12:00am migraine prevention Complies with drug therapyStart: 06-47-1248kxcsdq 120 mg by subcutaneous injection every monthGalcanezumab-Gnlm Active 120 MG SUBCUT every month May 28, 2023 12:00amStart: 74-96-5263kkadhc 1 mL by subcutaneous injection every monthEmgality 120 MG/ML 1 mL Subcutaneous monthly for 30 days Nov, Activegalcanezumab (Emgality) 120 MG/ML auto- injector Inject 120 mg under the skin 1 (one) time Two 120mg/ml injections the first month then one 120mg/ml injection monthly thereafer Subcutaneous Active glucagon (rdna) 1 mg injection (10 sources)Antihypoglycemic AgentStart: 87-63-5138sacvjk 1 mg intravenously onceglucagon (GLUCAGEN) 1 mg/mL [...] 100 unt/ml pen injector (20 sources)Insulin AnalogStart: 15-86-2647Ihyzhir Glargine (Lantus Solostar U- 100 Insulin) 100 unit/mL (3 mL) insulin pen Active 50 UNIT SUBCUT Daily 45 90 3 October 28, 2024 9:07am Complies with drug therapyStart: 11-13-2023 End: 53-65-7179Wpsoyet Glargine (Lantus Solostar U-100 Insulin) 100 unit/mL (3 mL) insulin pen Discontinued 25 UNIT SUBCUT Twice daily November 13, 2023 1:10pm October 28, 2024 9:09amStart: 05-28-2023 End: 80-10-7122Unhtdeh Glargine (Lantus Solostar U-100 Insulin) 100 unit/mL (3 mL) insulin pen Discontinued 50 UNIT SUBCUT Every evening 45 90 3 October 10, 2023 12:00am November 13, 2023 1:14pmLantus SoloStar 100 UNIT/ML 50 units Subcutaneous q HS ActiveLantus SoloStar 100 UNIT/ML 10 units, increase 2 units every 3 days until FBS Active3 ml insulin lispro 100 unt/ml pen injector (20 sources)Insulin AnalogStart: 86-85-4180Urrsbwo Lispro (Humalog Kwikpen Insulin) 100 unit/mL insulin [...] Insulin) 100 unit/mL insulin pen (5 sources)Start: 56-84-2428Lptzyok Lispro (Humalog Kwikpen Insulin) 100 unit/mL insulin [...] Inject with meals. Active methylPREDNISolone (20 sources)CorticosteroidStart: 70-80-5427bgsjcoXDSMJFMdwwdi (Medrol Dospak) 4 MG tablets Indications: Other specified disorders of synovium,right ankle and foot Follow schedule on MEDROL PACK package instructions to be used as directed 21 tablet 07/02/2024 ActiveStart: 05-14-2024 End: 81-84-6282cdgkamBSWVTXFbxius (Medrol Dospak) 4 MG tablets Indications: Other specified disorders of synovium,right ankle and foot Follow schedule on MEDROL PACK package instructions to be used as directed 21 tablet 05/14/2024 07/02/2024 Discontinued (Therapy completed)Start: 39-10-1792xoopyyZEIHTEEeibxg (Medrol Dospak) 4 MG tablets Indications: Other specified disorders of synovium, right ankle and foot Follow schedule on MEDROL PACK package instructions to be used as directed 21 tablet 05/14/2024 Ssocvn81 hr metoprolol succinate 25 mg extended release oral tablet (20 sources)beta-Adrenergic BlockerStart: 11-13-2023 End: 39-93-5398tapmbdrppc succinate XL (Toprol-XL) 25 MG 24 hr tablet Daily at bedtime 11/25/2023 Activeomeprazole 40 mg delayed release oral capsule (20 sources)Proton Pump InhibitorStart: 01-01-2022 End: 99-65-6389hnkq 1 capsule by mouth once daily in the morningOmeprazole 40 mg capsule,delayed release(DR/EC) Active 40 MG PO Every morning May 28, 2023 12:00am gerd Complies with drug therapyComment on above:Take 1 capsule by mouth once daily.TAKE 1 CAPSULE BY MOUTH ONCE DAILYozempic (0.25 or 0.5 mg/dose) 2 mg/3ml solution pen-injector (5 sources)Start: 35-28-7400Jfeptwv (0.25 or 0.5 MG/DOSE) 2 MG/3ML 0.25mg Subcutaneous weekly for 28 days Feb, Activepolyethylene glycol 3350 19085 mg powder for oral solution (1 source)Osmotic LaxativeStart: 61-51-1109ronjrkddoiau glycol 3350 (MIRALAX) 17 gram/dose powder Take 17 g by mouth once daily. Dissolve dosein 4 - 8 ounces of liquid and take as directed. 1530 g 3 11/19/2024 Activepregabalin 50 mg oral capsule (12 sources)Start: 76-23-6196wwuf 1 capsule by mouth in the morning, [...] tablet (20 sources)HMG-CoA Reductase InhibitorStart: 07-03-2023 End: 94-73-0755sktr 1 tablet by mouth once daily in the eveningRosuvastatin 20 mg tablet Active 0 .ROUTE .COMPLEX 90 3 June 28, 2024 12:24pm TAKE 1 TABLET BY MOUTH EVERY DAY IN THE EVENING Complies with drug therapyStart: 09-25-2020 End: 12-14-4872trii 1 tablet by mouth once daily in the eveningRosuvastatin 20 mg tablet Discontinued 20 MG PO Every evening May 28, 2023 12:00am July 03, 2023 2:37pmCrestor ActiveComment on above:Take 20 mg by mouth.sildenafil 100 mg oral tablet (20 sources)Phosphodiesterase 5 InhibitorStart: 02-06-2024 End: 39-25-7649Uxbladbuca 100 mg tablet Active 0 .ROUTE .COMPLEX 6 5 August 02, 2024 7:41am TAKE 1 TABLET BY MOUTH NEEDED 30 MINUTES TO 4 HOURS BEFORE SEXUAL ACTIVITY Complies with drug therapyStart: 00-05-8840gbewqvxpnl (Viagra) 100 MG tablet Daily 07/10/2023 ActiveStart: 07-10-2023 End: 90-86-3918Mrspkkwttz 100 mg tablet Discontinued 100 MG PO Daily as needed for sexual activity 6 30 5 July 12:00am February 06, 2024 9:43am administer 30 minutes to 4 hours before activitySITagliptin 50 mg oral tablet (20 sources)Dipeptidyl Peptidase 4 InhibitorStart: 77-88-6379Jyyntdt 50 MG as directed Orally Once a day Sep, Activesulfacetamide sodium 100 mg/ml ophthalmic solution (4 sources)Sulfonamide AntibacterialStart: 52-56-8391kyto 2 drop(s) into the eye(s) four times dailySulfacetamide Sodium 10 % 2 drops in affected eye Ophthalmic qid for 7 days Feb, ActiveTRULICITY 4.5 mg/0.5 mL pen injector (1 source)inject 4.5 mg by subcutaneous injection every weekTRULICITY 4.5 mg/0.5 mL pen injector INJECT 4.5 MG (0.5 ML) SUBCUTANEOUSLY ONCE EVERY WEEK FOR 90 DA YS Activeubrogepant 100 mg oral tablet (20 sources)Start: 32-93-2609cnzx 1 tablet by mouth once as neededUbrogepant (Ubrelvy) 100 mg tablet Active 100 MG PO Once as needed December 23, 2023 12:00am Complies with drug therapyStart: 92-00-8016htdo 1 tablet by mouth every two hours, [...] mg oral tablet (20 sources)BenzodiazepineStart: 09-30-2020 End: 63-77-1424mjzr 1 tablet by mouth three times daily as needed for anxiety Alprazolam 0.5 mg tablet Discontinued 0.5 MG PO Three times daily as needed for anxiety 2 March 08, 2024 9:30am July 20, 2024 7:44am Generalized anxiety disorder Generalized anxiety disorderStart: 09-30-2020 End: 87-55-4784vdjo 1 tablet by mouth every eight hours as needed for anxiety Alprazolam 0.5 mg tablet Discontinued 0.5 MG PO Every 8 hours as needed for Anxiety 30 5 2023 2:54pm March 08, 2024 9:32am Generalized anxiety disorder Generalized anxiety disorderStart: 09-30-2020 End: 56-78-3156xyrg 1 tablet by mouth once daily at bedtime as needed for anxietyAlprazolam 0.5 mg tablet Discontinued 0.5 MG PO Daily at bedtime as needed for Anxiety January 30, 2021 1:00am May 28, 2023 3:20pmComment on above:Take 0.5 mg by mouth.atenolol 50 mg oral tablet (17 sources)beta-Adrenergic BlockerStart: 01-30-2021 End: 42-35-9680aiuk 1 tablet by mouth once dailyAtenolol 50 mg tablet Discontinued 50 MG PO Daily January 30, 2021 1:00am July 18, 2021 11:38am atropine sulfate 0.025 mg / diphenoxylate hydrochloride 2.5 mg oral tablet (20 sources)Anticholinergic, Cholinergic Muscarinic Antagonist, Antidiarrheal Start: 12-03-2019 End: 55-03-4764xtzb 1 tablet by mouth three times dailyDiphenoxylate-Atropine 2.5-0.025 mg tablet Discontinued 1 TAB PO Three times daily May 28, 2023 12:00am September 04, 2023 4:09pmStart: 98-28-5915saor 1 tablet by mouth every eight hoursStart: 40-84-3304oica 1 tablet by mouth every six hoursLomotil 2.5- 0.025 MG 1 tablet as needed Orally Four times a day for 30 days Nov, Activeazithromycin 250 mg oral tablet (13 sources)Macrolide AntimicrobialStart: 09-23-2024 End: 49-40-4407Ccqjzvwuyzjg 250 mg tablet Discontinued 0 PO daily 6 5 0 December 23, 2024 8:31am December 23, 2024 8:32am Pharyngitis Acute pharyngitis, unspecified Take 2 on day 1 and then take 1 for the next 4 days (days 2-5)Start: 19-74-2122Hjxnvphadort 250 MG as directed Orally daily for 5 days Feb, Activebenazepril hydrochloride 10 mg oral tablet (20 sources)Angiotensin Converting Enzyme InhibitorStart: 03-27-2019 End: 79-07-9039utdf 1 tablet by mouth once dailyBenazepril 10 mg tablet Discontinued 10 MG PO Daily May 28, 2023 12:00am May 29, 2023 4:38pm Lotensin ActiveComment on above:Take 10 mg by mouth once daily.Blood-Glucose Meter,Continuous (Dexcom G7 Rapid Transit Operator) misc (5 sources)Start: 09-20-2023 End: 19-44-7352Dajhp-Glucose Meter,Continuous (Dexcom G7 Rapid Transit Operator) misc Discontinued 0 .Route 1 September 20, 2023 12:00am September 20, 2023 12:03pm As directedBlood-Glucose Sensor (Dexcom G7 Sensor) device (11 sources)Start: 09-20-2023 End: 01-06-0748Wqfwe-Glucose Sensor (Dexcom G7 Sensor) device Discontinued 0 .Route 4 2 September 20, 2023 12:00am September 20, 2023 12:03pm Type 2 diabetes mellitus with hyperglycemia Type 2 diabetes mellitus with hyperglycemia 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 Change sensor every 10 daysStart: 09-20-2023 End: 09-75-8478Gjblw-Glucose Sensor (Dexcom G7 Sensor) device Discontinued 0 .Route 4 September 20, 2023 12:00am 2023 12:03pm Change sensor every 10 daysBlood-Glucose Sensor (Freestyle Maicol 3 Sensor) device (11 sources)Start: 09-20-2023 End: 19-34-9234Gdkcf-Glucose Sensor (Freestyle Maicol 3 Sensor) device Discontinued 0 .Route 3 2 September 20, 2023 12:00am December 08, 2023 5:52pm Diabetes mellitus with hyperglycemia Type 2 diabetes mellitus withhyperglycemia Change sensor every 14 daysStart: 09-20-2023 End: 63-39-8270Fgcwi-Glucose Sensor (Freestyle Maicol 3 Sensor) device Discontinued 0 .Route 3 September 20, 2023 12:00am December 08, 2023 5:52pm Change sensor every 14 daysStart: 48-68-9704Vmsxd-Glucose Sensor (Freestyle Maicol 3 Sensor) device Active 0 .Route 3 September 20, 2023 12:00am Change sensor every 14 daysBlood-Glucose,Rapid Transit Operator,Cont (Dexcom G7 Rapid Transit Operator) misc (6 sources)Start: 09-20-2023 End: 17-03-1601Wetgs-Glucose,Rapid Transit Operator,Cont (Dexcom G7 Rapid Transit Operator) misc Discontinued 0 .Route 1 0 September 20, 2023 12:00am September 20, 2023 12:03pm As directedStart: 09-20-2023 End: 93-97-2359Mraeq-Glucose,Rapid Transit Operator,Cont (Dexcom G7 Rapid Transit Operator) misc Discontinued 0 .Route 1 September 20, 2023 12:00am September 20, 2023 12:03pm As directedcefuroxime 250 mg oral tablet (20 sources)Cephalosporin AntibacterialStart: 05-28-2023 End: 81-39-7512hgxt 1 tablet by mouth every twelve hoursCefuroxime Axetil 250 mg tablet Discontinued 250 MG PO Every 12 hours May 28, 2023 12:00am May 29, 2023 4:12pmStart: 07-37-9531zwtj 1 tablet by mouth every twelve hours Cefuroxime Axetil 250 MG 1 tablet Orally every 12 hrs for 7 days Jan, Activecetirizine hydrochloride 10 mg oral tablet (20 sources)Histamine-1 Receptor AntagonistStart: 07-18-2021 End: 47-51-3626tgck 1 tablet by mouth once daily in the morningCetirizine (Zyrtec) 10 mg Tablet Discontinued 10 MG PO Every morning July 18, 2021 12:00am 2023 2:34pmCetirizine HCl (ZYRTEC PO) Take by mouth ActiveZyrTEC Allergy Activesugar-free cholestyramine resin 4000 mg powder for oral suspension (20 sources)Bile Acid SequestrantStart: 03-27-2019 End: 10-71-0465Engnfhjotjcoxm-Aspartame (Prevalite) 4 gram powder in packet Discontinued 1 EACH PO Daily January 30, 2021 1:00am July 18, 2021 11:38am Prevalite 4 GM 1 packet Orally Once a day ActiveCholestyramine-Aspartame (Prevalite) 4 gram powder in packet (8 sources)Start: 01-30-2021 End: 49-08-3513Rabpoqoiwnfbhd-Aspartame (Prevalite) 4 gram powder in packet Discontinued 1 EACH PO Daily January 30, 2021 1:00am July 18, 2021 11:38am colesevelam hydrochloride 625 mg oral tablet (14 sources)Bile Acid SequestrantStart: 01-01-2022 End: 11-92-3088ybtoymqzbsx (WELCHOL) 625 mg tablet START WITH 1 TABLET AT BEDTIME THEN INCREASE TO 2 TABLETS IF DIARRHEA PERSISTS 60 tablet 5 01/25/2022 12/16/2023 DiscontinuedComment on above:Start with 1 tab PO QHS. Increase to 2 tabs if diarrhea persists.START WITH 1 TABLET AT BEDTIME THEN INCREASE TO 2 TABLETS IF DIARRHEA PERSISTSdocusate sodium 100 mg oral capsule (10 sources)Start: 12-16-2023 End: 68-03-4799zwkn 1 capsule by mouth twice dailyDocusate Sodium (Colace) 100 mg capsule Discontinued 100 MG PO Twice daily December 23, 2023 12:00am December 23, 2024 8:35amdoxycycline hyclate 100 mg oral capsule (6 sources)Tetracycline-class DrugStart: 01-08-2024 End: 41-48-8018yspt 1 capsule by mouth twice dailyDoxycycline Hyclate 100 mg capsule Discontinued 100 MG PO Twice daily 10 January 08, 2024 12:00am August 21, 2024 8:30amenteric contrast (will be provided with radiology test) (1 source)Start: 03-13-2022 End: 46-72-0711kuvawox contrast (will be provided with radiology test) For MRI ENTEROGRAPHY WO/W Administer, As Directed One Time Only, via Oral, Rectal, both Oral and Rectal, Enteric Tube, Stoma or Indwelling Catheter, Enteric Contrast as designated per enteric contrast guidelines 1 Each 03/13/2022 03/14/2022 escitalopram 20 mg oral tablet (20 sources)Serotonin Reuptake InhibitorStart: 07-31-2023 End: 49-99-2608cqpi 1 tablet by mouth once daily at bedtimeEscitalopram Oxalate 20 mg tablet Discontinued 0 .ROUTE .COMPLEX 90 January 27, 2024 7:56am July 28, 2024 7:42am TAKE 1 TABLET BY MOUTH EVERYDAY AT BEDTIMEStart: 08-27-2020 End: 71-01-1991zler 1 tablet by mouth once daily at bedtimeEscitalopram Oxalate 20 mg tablet Discontinued 20 MG PO Daily at bedtime May 28, 2023 12:00am July 31, 2023 2:56pmLexapro ActiveComment on above:Take 20 mg by mouth.etodolac 400 mg oral tablet (14 sources)Nonsteroidal Anti-inflammatory DrugStart: 01-30-2021 End: 41-43-9701zltd 1 tablet by mouth twice dailyEtodolac 400 mg tablet Discontinued 400 MG PO Twice daily January 30, 2021 1:00am July 18, 2021 11:39amInsulin Glargine-Yfgn (6 sources)Start: 10-10-2023 End: 32-40-1216Jvahfbv Glargine-Yfgn (Semglee(Insulin Glarg-Yfgn)Pen) 100 unit/mL (3 mL) insulin pen Discontinued 50 UNIT SUBCUT Daily 45 90 3 October 10, 2023 8:46am October 10, 2023 8:56amStart: 10-10-2023 End: 17-06-6370Pqufyex Glargine-Yfgn (Semglee(Insulin Glarg-Yfgn)Pen) 100 unit/mL (3 mL) insulin pen Discontinued 50 UNIT SUBCUT Daily 45 90 October 10, 2023 8:46am October 10, 2023 8:56amInsulin Glargine-Yfgn (Semglee(Insulin Glarg- Yfgn)Pen) 100 unit/mL (3 mL) insulin pen (5 sources)Start: 10-10-2023 End: 20-04-8463Jkbrfrn Glargine-Yfgn (Semglee(Insulin Glarg-Yfgn)Pen) 100 unit/mL (3 mL) insulin pen Discontinued 50 UNIT SUBCUT Daily 45 90 October 10, 2023 8:46am October 10, 2023 8:56am24 hr isosorbide mononitrate 30 mg extended release oral tablet (20 sources)Nitrate VasodilatorStart: 12-31-2023 End: 15-37-7536gwnm 1 tablet by mouth once daily in the morningIsosorbide Mononitrate 30 mg tablet extended release 24 hr Discontinued 0 .ROUTE .COMPLEX 90 1 December 31, 2023 12:41pm January 01, 2024 3:15pm TAKE 1 TABLET BY MOUTH EVERY MORNINGStart: 11-13-2023 End: 22-21-6736bdzbpftuun mononitrate ER (Imdur) 30 MG 24 hr tablet Every morning 11/13/2023 Activeiv contrast (will be provided with radiology test) (1 source)Start: 03-13-2022 End: 23-14-3692ri contrast (will be provided with radiology test) [...] mg oral tablet (17 sources)Start: 01-30-2021 End: 11-56-2734lxoj 1 tablet by mouth once dailyLoratadine 10 mg Tablet Discontinued 10 MG PO Daily January 30, 2021 1:00am July 18, 2021 11:39am Drvtyzqzd-Acosyw-Qqdbcdkt-Scop (8 sources)Start: 03-27-2019 End: 21-85-3128yzdi 1 tablet by mouth three times daily Unspqqfgy-Cyaphx-Jruleylj-Scop Discontinued 1 TAB PO Three times daily March 27, 2019 1:00am January 30, 2021 12:40hvZcaoxjmyz-Vusotk-Ybdvoewe-Scop 16.2-0.1037 -0.0194 mg tablet (6 sources)Start: 03-27-2019 End: 15-88-2953iixa 1 tablet by mouth three times daily Vszxhsttn-Usbjqg-Duhoicak-Scop 16.2-0.1037 -0.0194 mg tablet Discontinued 1 TAB PO Three times daily March 27, 2019 1:00am January 30, 2021 12:15pm predniSONE 20 mg oral tablet (15 sources)Start: 10-07-2024 End: 10-38-8182Jerrwdkfhg 20 mg tablet Discontinued 20 MG PO As Directed 16 9 0 October 07, 2024 12:00am December 23, 2024 8:36am 1 tab tid w/ food x 2 days, then bid w/ food x 3 days, then qd w/ food x 4 daysStart: 09-04-2023 End: 36-87-5584Soagsedwwc 20 mg tablet Discontinued 20 MG PO As Directed 18 0 September 04, 2023 12:00am November 13, 2023 1:13pm 1 tab tid w/ food x 3 days, then bid w/ food x 3 days, then qd w/ food x 3 days24 hr propranolol hydrochloride 80 mg extended release oral capsule (14 sources)beta-Adrenergic BlockerStart: 03-27-2019 End: 35-27-4118zpsd 1 capsule by mouth once dailyPropranolol 80 mg capsule,extended release 24 hr Discontinued 80 MG PO Daily March 27, 2019 1:00am January 30, 2021 12:16pmrizatriptan 10 mg oral tablet (20 sources)Serotonin-1b and Serotonin-1d Receptor AgonistStart: 05-28-2023 End: 82-92-1981ecmw 1 tablet by mouth once daily as needed for headache Rizatriptan (Maxalt) 10 mg tablet Discontinued 10 MG PO Daily as needed for migraine headache November 13, 2023 1:12pm November 27, 2023 11:12amStart: 47-32-0448nvfdvdbgdaq (MAXALT) 5 mg tablet TAKE 1 TABLET BY MOUTH AT ONSET OF MIGRAINE MAY REPEAT 1 TAB IN 2HRS IF NEEDED 02/12/2022 ActiveComment on above: TAKE 1 TABLET BY MOUTH AT ONSET OF MIGRAINE MAY REPEAT 1 TAB IN 2HRS IF NEEDED Semaglutide (20 sources)Start: 05-29-2023 End: 74-35-1962Bbjmoqrdddc (Ozempic) 0.25 mg or 0.5 mg (2 mg/3 mL) pen injector Discontinued 0.25 MG SUBCUT every week 3 May 29, 2023 4:38pm June 12, 2023 4:24pmStart: 05-29-2023 End: 58-66-2856Amrcnmchbwo (Ozempic) 0.25 mg or 0.5 mg (2 mg/3 mL) pen injector Discontinued 0.25 MG SUBCUT every week 3 May 29, 2023 4:38pm June 12, 2023 4:24pmStart: 05-28-2023 End: 81-45-0521Hdwpbxhfbzv (Ozempic) 0.25 mg or 0.5 mg (2 mg/3 mL) pen injector Discontinued 0.25 MG SUBCUT every week May 28, 2023 12:00am May 29, 2023 4:95ew5241 ml sodium chloride 9 mg/ml injection (1 source)Start: 03-13-2022 End: 88-72-8064wuul 30 mL intravenously every hour30 mL/hr, INTRAVENOUS, CONTINUOUS, Starting on Sat03/13/22 at 1030, Until Sat12/04/23 at 0508, Prepro ceduretriamcinolone acetonide 5 mg/ml topical cream (4 sources)CorticosteroidStart: 10-07-2024 End: 07-37-0937Caeiwsoxxjoeh Acetonide 0.5 % cream Discontinued 1 APPLIC TOPICAL Twice daily October 07, 2024 12:00am January 06, 2025 8:26am Problems Active Problems Problem ClassificationProblemDateDocumented DateEpisodic/ChronicAbdominal pain (18 sources)Abdominal pain; Translations: [Unspecified abdominal pain]Episodic Acute bronchitis (1 source)Acute bronchitis due to other specified organismsEpisodicAllergic reactions (2 sources)Contact dermatitis; Translations: [Unspecified contact dermatitis, unspecified cause]49-34-5248FjryzaglMmegdlv disorders (20 sources)Generalized anxiety disorder; Translations: [Generalized anxiety disorder]ChronicBlindness and vision defects (6 sources)Visual disturbance; Translations: [Unspecified visual disturbance] EpisodicDiabetes mellitus with complications (20 sources)Type 2 diabetes mellitus; Translations: [Type 2 diabetes mellitus with hyperglycemia]Onset: 00-01-2323MweojuzVuweibsrv of lipid metabolism (20 sources)Hypercholesterolemia; Translations: [Pure hypercholesterolemia, unspecified]ChronicEsophageal disorders (20 sources)Gastroesophageal reflux disease; Translations: [Gastro-esophageal reflux disease without esophagitis]Onset: 127814-55-0070XdoriysTqbpcqumo hypertension (20 sources)Essential hypertension; Translations: [Essential (primary) hypertension]ChronicGastritis and duodenitis (6 sources)Gastritis; Translations: [Gastritis, unspecified, without bleeding] Onset: 09-04-2021 Resolved: 26-56-8933DdzabkaiMehdstlwinubisjd hemorrhage (9 sources)Hematochezia; Translations: [Melena]EpisodicHeadache; including migraine (20 sources)Migraine; Translations: [Migraine, unspecified, not intractable, without status migrainosus]Onset: 370455-71-0426OokrkfkRmjtuuqmaaph; infection of eye (except that caused by tuberculosis or sexually transmitteddisease) (1 source)Unspecified acute conjunctivitis, bilateralEpisodicMelanomas of skin (20 sources)Malignant melanoma of head and neck ; Translations: [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]Onset: 671058-81-3655 ChronicMiscellaneous mental health disorders (20 sources)Primary insomnia; Translations: [Primary insomnia]Onset: 07-08-2023 39-56-5720SphuewrRwco disorders (20 sources)Recurrent major depression in full remission; Translations: [Major depressive disorder, recurrent, in full remission]69-82-3050HwmjhrrYexurcwcl of unspecified nature or uncertain behavior (1 source)Neoplasm of uncertain behavior of skin; Translations: [Neoplasm of uncertain behavior of skin]EpisodicNonspecific chest pain (10 sources)Chest pain; Translations: [Chest pain, unspecified]11-13-2023 EpisodicOther acquired deformities (7 sources)Contracture of joint of right ankle; Translations: [Contracture, right ankle]20-92-5734ZfqrssrQbtsh acquired deformities (11 sources)Contracture of joint of left ankle; Translations: [Contracture, left ankle]97-12-6609LkmdafdAjsri aftercare (7 sources)Encounter for follow-up examination after completed treatment for conditions other than malignant neoplasmOnset: 58-06-5080UvllfyqyYysag aftercare (16 sources)Long-term current use of insulin; Translations: [residential (current) use of insulin]EpisodicOther aftercare (5 sources)residential (current) use of insulinEpisodicOther and unspecified benign neoplasm (1 source)Benign neoplasm of colon, unspecifiedOnset: 96-77-2483ZaqzubzzFldxn connective tissue disease (16 sources)Tendinitis of right posterior tibial tendon; Translations: [Posterior tibial tendinitis, right leg]87-23-4849ZmeqqurwSyyve connective tissue disease (16 sources)Disorder of musculoskeletal system; Translations: [Other specified disorders of synovium, right ankle and foot]88-25-3379EefvkdrdPjyql connective tissue disease (20 sources)Left achilles tendonitis; Translations: [Achilles tendinitis, left leg]04-84-5955DqlcudpqJsiye gastrointestinal disorders (14 sources)Irritable bowel syndrome; Translations: [Irritable bowel syndrome without diarrhea]61-82-4415FhywyouIycsu gastrointestinal disorders (20 sources)Irritable bowel syndrome with diarrhea; Translations: [Irritable bowel syndrome with diarrhea]ChronicOther gastrointestinal disorders (4 sources)Irritable bowel syndrome with diarrheaOnset: 01-19-2021 Resolved: 07-58-9683VwxnhorVztss gastrointestinal disorders (2 sources)Irritable bowel syndrome characterized by constipation; Translations: [Irritable bowel syndrome with constipation]17-01-9582LwbsdsaHfbiw gastrointestinal disorders (1 source)Irritable bowel syndrome with constipation; Translations: [Irritable bowel syndrome with constipation]Onset: 63-97-3329WiptddeDxrln gastrointestinal disorders (11 sources)Diarrhea; Translations: [Diarrhea, unspecified]EpisodicOther gastrointestinal disorders (9 sources)Swollen abdomen; Translations: [Abdominal distension (gaseous)] EpisodicOther gastrointestinal disorders (20 sources)Dysphagia; Translations: [Dysphagia, unspecified]18-91-3388Ykyscwuw Comment on above:Problem List clean-up per request of Phys. EHR CmteOther gastrointestinal disorders (2 sources)Esophageal dysphagia; Translations: [Other dysphagia]EpisodicOther lower respiratory disease (5 sources)Dyspnea; Translations: [Dyspnea, unspecified]49-09-3330CfwqkynhHqnyo lower respiratory disease (8 sources)Dyspnea, unspecified; Translations: [Other respiratory abnormalities] 80-83-1705HabncuipRahvj nervous system disorders (20 sources)Bilateral carpal tunnel syndrome; Translations: [Carpal tunnel syndrome, bilateral upper limbs]80-30-4942WiapqwdMghte nervous system disorders (20 sources)Carpal tunnel syndrome of left wrist; Translations: [Carpal tunnel syndrome, left upper limb]Onset: 645895-38-4108XzhykxiRokrp nervous system disorders (1 source)Carpal tunnel syndrome, bilateral upper limbsOnset: 10-17-2021 Resolved: 21-39-4704DofncyrFmeoj nervous system disorders (5 sources)Carpal tunnel syndrome; Translations: [Carpal tunnel syndrome, bilateral upper limbs]68-69-7750AdxfwzgVnwmf nervous system disorders (12 sources)Impairment of balance; [...] Translations: [Abnormal result of other cardiovascular function study]16-06-0322OfzptvecQmlmknm on above:PSA: 1.3 - 08/2024Other skin disorders [...] syndrome; Translations: [Obstructive sleep apnea (adult) (pediatric)]Onset: 614254-32-8178GnvdsuiCluxivmb codes; unclassified (14 sources)Obstructive sleep apnea (adult) (pediatric); Translations: [Obstructive sleep apnea (adult)(pediatric)]Onset: 74-73-8769JjblxctWseguzsd codes; unclassified (1 source)Idiopathic hypersomnia with long sleep time; Translations: [IDIO HYPERSOMNIA W/LONG SLEEP TIME]Onset: 52-61-5218OfdwjqbIfoxfthm codes; unclassified (20 sources)Daytime somnolence; Translations: [Other hypersomnia]Onset: 453916-91-5843SllhuomOlrbnghj codes; unclassified (20 sources)Hypersomnia; Translations: [Hypersomnia, unspecified]Onset: 292878-04-0776VolqjquElfmzzls codes; unclassified (18 sources)Other hypersomnia; Translations: [Hypersomnia, unspecified]Onset: 977890-24-7004YlfojskVgusbyfn codes; unclassified (3 sources)No current problems or disability; Translations: [Other specified conditions influencing health status]Onset: 16-13-6467SappodlmIqiqeqhldnm; intervertebral disc disorders; other back problems (20 sources)Cervical spondylosis with radiculopathy; Translations: [Other spondylosis with radiculopathy, cervical region]Onset: 10-17-2021 Resolved: 23-45-8345UutripyIcfmsgipugz; intervertebral disc disorders; other back problems (19 sources)Low back pain; Translations: [Low back pain, unspecified back pain laterality, unspecified chronicity, unspecified whether sciatica present]Onset: 10-17-2021 Resolved: 09-87-5650YnzwlvolBinlwmi and strains (5 sources)Rupture of left Achilles tendon; Translations: [Strain of left Achilles tendon, initial encounter]Onset: 226134-51-4360XsztrshzTmwefzv disorders (16 sources)Thyroid nodule; Translations: [Nontoxic single thyroid nodule] 86-84-4538AzefejhHnretcr on above:US: right 0.5cm, 0.3cm TR3 and left 0.6cm, 0.4mm, 0.7mm TR3 - 12/2023 Past or Other Problems Problem ClassificationProblemDateDocumented DateEpisodic/ChronicEsophageal disorders (5 sources)Esophageal disordersOther connective tissue disease (6 sources)History of cervical spine fusion; Translations: [Arthrodesis status] Onset: 213844-33-5093QgjnmifsObnfv gastrointestinal disorders (1 source)Fecal urgencyOnset: 01-19-2021 Resolved: 73-55-7261DgkijyhgFmivg gastrointestinal disorders (2 sources)Diarrhea, unspecifiedOnset: 02-28-2021 Resolved: 61-44-7409MhfvtgexPrvhm nervous system disorders (1 source)Other abnormalities of gait and mobilityOnset: 10-17-2021 Resolved: 23-42-2698YquxpczuQodie nervous system disorders (20 sources)Ataxia; Translations: [Ataxia, unspecified]Onset: 07-08-2023 23-04-5077LbhwdklcXdrjsrdvambp (2 sources)Low back pain, unspecified back pain laterality, unspecified chronicity, unspecified whether sciatica present M54.50Onset: 10-17-2021 Resolved: 33-18-6230Gccgesgxnzrf (2 sources)Rupture of left Achilles -13-5356 Results Test NameValueInterpretationReference RangeFacilityMR ankle LT wo conon 77-50-5176WB ankle LT wo [facility] [place] [address] [place] [address] MRI Report Signed Patient: Donell Dumont MR#: [id number] : 1975 Acct:[id number] Age/Sex: 49 / M ADM Date: 12/29/24 Loc: [facility] Room: Type: [facility] Attending Dr: Gregory Diehl DPM Copies to: [...] Pereyra M.D. 12/29/2024 5:15 PM Dictation Location: [place] [address] Transcribed By: [facility] 12/29/241714 Dictated By: Maurice Pereyra II, MD 12/29/241705 Signed By: 12/29/241714[facility] Physician GroupMagnetic resonance imaging reportOrdered By: Maurice Pereyra on 76-81-0795Lkvhm reportFLOWER HOSP[facility] [place] [address] [place] [address] MRI Report Signed Patient: Donell Dumont MR#: [id number] : 1975 Acct:[id number] Age/Sex: 49 / M ADM Date: 5 Loc: [facility] Room: Type: [facility] CLI Attending Dr: Gregory Diehl DPM Copies [...] Pereyra II, MD 12/29/241705 Signed By: 12/29/241714 [facility] Work Phone: CNOVon [phone] Visit (HILARIO) DONELL DUMONT ([id number]) 1975 M Date Time Provider Department 11/19/24 8:30 AM SHYANNE RODRÍGUEZ During your visit today, we recorded the following information about you: Pulse Blood pressure Weight 81/minute 125/82 95.3 kg Shyanne Rodríguez, ENGLISH COMPOSITION INSTRUCTOR.CREDIT COLLECTIONS REP 11/19/2024 9:18 AM Signed DEPARTMENT OF GASTROENTEROLOGY [...] ORAL) cetirizine (ZYRTEC) 10 mg tablet fremanezumab-vfrm (Incluyeme.comOVY AUTOINJECTOR) 225 mg/1.5 mL auto-injector No current [...] since increasing to the max acosta of [facility] for DM. Wt is stable. Failing 200mg [...] persists or worsens (known hemorrhoids) Shyanne Rodríguez, AAKASH.CREDIT COLLECTIONS REP 11/19/2024 8:31 AM [1] Social History Tobacco Use Smoking status: N (more content not included)...[facility] X[facility] Spine Cervical 4 or 5 Viewson 16-29-6107IO Spine Cervical 4 or 5 Views CLINICAL [...] Signed, Electronically Signed in Other Vendor System)Normal [facility] Noteon 04-22-2024 Neurosurgery Office/Clinic NoteChief [...] 1 tabs, Or (more content not included)...Normal [facility] HospitalXR Spine Cervical 2 or 3 Viewson 69-27-7756ZP Spine Cervical 2 or 3 ViewsC-spine radiographs [...] Signed, Electronically Signed in Other Vendor System)Normal [facility]Ne[facility]/Clinic Noteon 02-20-2024 Neurosurgery Office/Clinic NoteChief [...] 1 tabs, Oral (more content not included)... NormalM[facility] Hospital.eGFRon 54-82-5494ERG/1.73 sq M.predicted MDRD (S/P/Bld) [Vol rate/Area]mL/min/{1.73_m2}Normal>=60[facility] HospitalComment on above:Result Comment: [facility] have implemented the eGFR calculation [...] Age = yearsPerformed By: #### ABORH #### [facility] (DEFAULT) [address] [place] [address] [facility] (UNKNOWN) [address] [place], [place] [address]Uxgjt Metabolic Profileon 71-71-0496Lqscv gap [Moles/Vol]6 mmol/LNormal4-12[facility] SystemComment on above:Performed By: #### ABORH #### [facility] (DEFAULT) [address] [place] [address] [facility] (UNKNOWN) [address] [place], [place] [address]Mocslkl [Mass/Vol]8.3 mg/dLLow8.5-10.3BChillicothe VA Medical Center SystemComment on above:Performed By: #### ABORH #### [facility] (DEFAULT) [address] [place] [address] [facility] (UNKNOWN) [address] [place], [place] [address]Qmuonece [Moles/Vol]105 mmol/PLlrhrm15-907LoenutjobGood Samaritan Hospital SystemComment on above:Performed By: #### ABORH #### [facility] (DEFAULT) [address] [place] [address] [facility] (UNKNOWN) [address] [facility], [place] [address]TF2 [Moles/Vol]28 mmol/KRkoxqt99-19XzknwfyulGood Samaritan Hospital SystemComment on above:Performed By: #### ABORH #### [facility] (DEFAULT) [address] [place] [address] [facility] (UNKNOWN) [address] [place], [place] [address]Gnbfnlalwm [Mass/Vol]0.72 mg/dLNormal0.61-1.24[facility] SystemComment on above:Performed By: #### ABORH #### [facility] (DEFAULT) [address] [place] [address] [facility] (UNKNOWN) [address] [place], [place] [address]Wmrcvwu [Mass/Vol]93 mg/nOLsmdoh05-02ZbojjkhkhGood Samaritan Hospital SystemComment on above:Performed By: #### ABORH #### [facility] (DEFAULT) [address] [place] [address] [facility] (UNKNOWN) [address] [place], [place] [address]Rgjheojxm [Moles/Vol]3.8 mmol/LNormal3.4-4.8BChillicothe VA Medical Center SystemComment on above:Performed By: #### ABORH #### [facility] (DEFAULT) [address] [place] [address] [facility] (UNKNOWN) [address] [place], [place] [address]Oeutba [Moles/Vol]139 mmol/YLqccxf181-170Lqacpijxc [facility] SystemComment on above:Performed By: #### ABORH #### [facility] (DEFAULT) [address] [place] [address] [facility] (UNKNOWN) [address] [place], [place] [address]Zeju nitrogen [Mass/Vol]12 mg/dLNormal8-26[facility] SystemComment on above:Performed By: #### ABORH #### [facility] (DEFAULT) [address] [place] [address] [facility] (UNKNOWN) [address] [place], [place] [address]Qsju nitrogen/Creatinine [Mass ratio]16.7 mg/svUslkoj29.0-20.0 [facility] SystemComment on above:Performed By: #### ABORH #### [facility] (DEFAULT) [address] [place] [address] [facility] (UNKNOWN) [address] [place], [place] [address]Elgghgpej Clinical Summaryon 73-10-5672Eijivjecp [facility]De[facility] [address] [place] [address] [address] Clinical Summary Person Information Name: Donell Dumont Age: 48 Years : 1975 Sex: Male PCP: Jack Ortega DO Marital Status: Phone: PCP: Race: White Ethnicity: Not or Language: Kiswahili Visit Id: Visit Reason: Speciality: Acuity: Enc Type: Observation Med Service: Surgery Arrival: 01/24/2024 06:35:02 Discharge: Dispo Type: Address: [address] [place], [place] [address]ERASMO UREÑA MD [id number] Diagnosis: Status post cervical spinal fusion Discharged [...] Were Updated - Follow Current Instructions [id number], [address] [place], [place] [id number], [phone] Current: docusate (Colace 100 mg oral capsule) [...] glargine (Semglee (Prefi (more content not included)...Normal [facility] HospitalNeuro[facility] Progress Noteon 01-25-2024 Neurosurgery Progress NoteSubjective [...] PRN, # 42 tabs, 0 Refill(s), Pharmacy: [facility]/pharmacy #[id number] Orders: acetaminophen, 650 mg, Oral, Tab, q4hr, PRN mild pain [1-3 on pain scale], First Dose: 01/24/24 12:29:00 EST, Dispense From Location: [facility], 01/24/24 12:29:00 EST ALPRAZolam, 1 mg, Oral, Tab, HS (at bedtime), First Dose: 01/24/24 14:00:00 EST, Dispense From Location: Ifqrzfz-RHU-1M, 01/24/24 12:23:00 EST amitriptyline, 25 mg, Oral, Tab, HS (at bedtime), First Dose: 01/24/24 21:00:00 EST, Dispense From Location: Main OR (SN), 01/24/24 12:23:00 EST baclofen, 20 mg, Oral, Tab, HS (at bedtime), First Dose: 01/24/24 21:00:00 EST, Dispense From Location: Isnwvno-QBA-7V, 01/24/24 12:23:00 EST benazepril-hydrochlorothiazide, 1 tabs, Oral, Tab, qAM, First Dose: 01/25/24 9:00:00 EST, Dispense From Location: [facility], 01/24/24 12:23:00 EST ceFAZolin, 2 g, IV Piggyback, Soln-IV, q8hr, infuse over 30 minutes, First Dose: 01/24/24 15:00:00 EST, Dispense From Location: Kqwgpqa-UHM-ZO, Prophylaxis- Pre/Post-Op, 01/24/24 15:00:00 EST Dextrose 10% in Water, 125 mL, IV Piggyback, Soln-IV, As Indicated for 20 doses, PRN other (see comment), infuse over 0.3 hr, First Dose: 01/24/24 16:03:00 EST, Stop Date: Limited # of times, Dispense From Location: Sytvesm-ISC-3H, 01/24/24 16:03:00 EST docusate, 100 mg, Oral, BID, # 60 caps, 0 Refill(s), Pharmacy: [facility]/pharmacy #[id number] docusate, 100 mg, [...] Date: Limited # of (more content not included)...NormalMarietta [facility] HospitalPO Glucose Randomon [id number] [Mass/Vol]98 mg/lFJkwqdw40-31QgadqgidbMarietta Memorial Hospital Comment on above:Performed By: #### ABORH #### [facility] (DEFAULT) [address] [place] [address] [facility] (UNKNOWN) [address] [place], [place] [address]ITXwc 43-25-4071Oxpyqyyryev distribution width (RBC) [Ratio] 14.2 %Sagfbg39.6-14.8BUniversity Hospitals Lake West Medical CenterComment on above:Performed By: #### ABORH #### [facility] (DEFAULT) [address] [place] [address] [facility] (UNKNOWN) [address] [place], [place] [address]Tagxlpajwg (Bld) [Volume fraction]41.5 %Idmasf13.0-53.0 [facility] SystemComment on above:Performed By: #### ABORH #### [facility] (DEFAULT) [address] [place] [address] [facility] (UNKNOWN) [address] [place], [place] [address]Xmfdfztasc (Bld) [Mass/Vol]13.8 g/yXLiaukx85.5-17.5BChillicothe VA Medical Center SystemComment on above:Performed By: #### ABORH #### [facility] (DEFAULT) [address] [place] [address] [facility] (UNKNOWN) [address] [place], [place] [address]CHV (RBC) [Entitic mass]29.4 bwOaloth04.0-35.0[facility] SystemComment on above:Performed By: #### ABORH #### [facility] (DEFAULT) [address] [place] [address] [facility] (UNKNOWN) [address] [place], [place] [address]CXUW65.2 %Axwans32.0-37.0[facility] SystemComment on above:Performed By: #### ABORH #### [facility] (DEFAULT) [address] [place] [address] [facility] (UNKNOWN) [address] [place], [place] [address]ULS (RBC) [Entitic vol]88.4 sLMhvusw80.0-100.0[facility] SystemComment on above:Performed By: #### ABORH #### [facility] (DEFAULT) [address] [place] [address] [facility] (UNKNOWN) [address] [place], [place] [address]Asdyuspv158 x10*3/ldJHrsttf023-075Vozetnyyj [facility] SystemComment on above:Performed By: #### ABORH #### [facility] (DEFAULT) [address] [place] [address] [facility] (UNKNOWN) [address] [place], [place] [address]Wzkzhliu mean volume (Bld) [Entitic vol]8.8 fLNormal6.7-10.6 [facility] HospitalComment on above:Performed By: #### ABORH #### [facility] (DEFAULT) [address] [place] [address] [facility] (UNKNOWN) [address] [place], [place] [address]ZAZ4.70 x10*6/mcLNormal4.30-5.80[facility] Comment on above:Performed By: #### ABORH #### [facility] (DEFAULT) [address] [place] [address] [facility] (UNKNOWN) [address] [place], [place] [address]YGV92.1 x10*3/mcLNormal4.5-11.0[facility] Comment on above:Performed By: #### ABORH #### [facility] (DEFAULT) [address] [place] [address] [facility] (UNKNOWN) [address] [place], [place] [address]Yjnlwtrxbrus Note - Genericon 06-40-7068Zyjfknofkuwk Note - GenericChief Complaint Neck pain, hand [...] mL, IV Xanax, 0 (more content not included)...[facility] Neurosurgery Progress Noteon 67-72-7566Thcmyhhhwizj Progress NoteSubjective no issues in pacu Objective [...] ceFAZolin, 2 g= 50 mL, IV Piggyback, Machine Operator Hop Picker ceFAZolin, 2 g= 50 mL, IV Piggyback, [...] PRN, # 42 tabs, 0 Refill(s), Pharmacy: [facility]/pharmacy #[id number] Orders: acetaminophen, 650 mg, Oral, Tab, q4hr, PRN mild pain [1-3 on pain scale], First Dose: 01/24/24 12:29:00 EST, Dispense From Location: Lgebrop-MXW-LW, 01/24/24 12:29:00 EST ALPRAZolam, 0.5 mg, Oral, Tab, TID, First Dose: 01/24/24 14:00:00 EST, Dispense From Location: [facility], 01/24/24 12:23:00 EST amitriptyline, 25 mg, Oral, Tab, HS (at bedtime), First Dose: 01/24/24 21:00:00 EST, Dispense From Location: Main OR (SN), 01/24/24 12:23:00 EST baclofen, 20 mg, Oral, Tab, HS (at bedtime), First Dose: 01/24/24 21:00:00 EST, Dispense From Location: [facility], 01/24/24 12:23:00 EST benazepril-hydrochlorothiazide, 1 tabs, Oral, Tab, qAM, First Dose: 01/25/24 9:00:00 EST, Dispense From Location: [facility], 01/24/24 12:23:00 EST ceFAZolin, 2 g, IV Piggyback, Soln-IV, q8hr, infuse over 30 minutes, First Dose: 01/24/24 15:00:00 EST, Dispense From Location: Fijbscw-VLN-MF, Prophylaxis- Pre/Post-Op, 01/24/24 15:00:00 EST ceFAZolin, 2 g, IV Piggyback, Soln-IV, Machine Operator Hop Picker, infuse over 30 minutes, First Dose: 01/24/24 0:22:00 EST, Dispense From Location: Kaknajy-HGK-ZO, Prophylaxis- Pre/Post-Op, 01/24/24 0:22:00 EST docusate, 100 mg, Oral, Cap, BID, First Dose: 01/24/24 17:00:00 EST, Dispense From Location: Main OR (SN), 01/24/24 12:23:00 EST docusate, 100 mg, Oral, BID, # 60 caps, 0 Refill(s), Pharmacy: [facility]/pharmacy #[id number] docusate, 100 mg, Oral, Cap, BID, First Dose: 01/24/24 17:00:00 EST, Dispense From Location: Main OR (SN), 01/24/24 12:29:00 EST escitalopram, 20 mg, Oral, Tab, HS (at bedtime), First Dose: 01/24/24 21:00:00 EST, Dispense From Location: Main OR (SN), 01/24/24 12:23:00 EST insulin glargine, 25 units, Subcutaneous, Injection, BID, First Dose: 01/24/24 21:00:00 EST, Dispense From Location: [facility], 01/24/24 12:23:00 EST magnesium hydroxide, 30 mL, Oral, Susp, TID, First Dose: 01/24/24 14:00:00 EST, Dispense From Location: Main OR (SN), 01/24/24 12:29:00 EST omeprazole, 40 mg, Oral, Cap-DR, qAM, First Dose: 01/25/24 9:00:00 EST, Dispense From Location: Main OR (SN), 01/24/24 12:23:00 EST ondansetron, 4 mg, IV Push, Injection, q4hr, PRN nausea, First Dose: 01/24/24 12:29:00 EST, Dispense From Location: Ayrbdxp-QWH-WH, 01/24/24 12:29:00 EST oxyCODONE-acetaminophen, 1 tabs, Oral, Tab, q4hr, PRN pain, First Dose: 01/24/24 12:29:00 EST, Dispense From Location: Vbylxty-KTM-TH, 01/24/24 12:29:00 EST oxyCODONE-acetaminophen, 2 tabs, Oral, Tab, q4hr, PRN pain, First Dose: 01/24/24 12:29:00 EST, Dispense From Location: Vtpbwjq-MSD-EM, 01/24/24 12:29:00 EST rosuvastatin, 20 mg, Oral, Tab, HS (at bedtime), First Dose: 01/24/24 21:00:00 EST, Dispense From Location: Main OR (SN), 01/24/24 12:23:00 EST sodium chloride, 10 mL, IV Push, Injection, As (more content not included)... [facility] SystemOperative Reporton [id number] ReportIndication for Surgery 1. s/p L5-S1 PLIF [...] Layne LEGER, Feliciano Chapa (Surgeon - Primary) Foundry Patternmaker Maurice Davenport (Therapeutic Case Manager) Anesthesia General Jimubdouglas LEGER, Ziggy Gomez (Emblem Drawer In) Tegan Seals (Provider) Estimated Blood Loss 5cc [...] surgical procedure was assisted by my physician?s mailroom assistant. Her presence was needed throughout the case for positioning the surgical instruments as well as primarily assisting me through (more content not included)...[facility] Glucose Randomon 65-91-2881Fscpdcz [Mass/Vol]149 mg/dL Xjkw61-14VagdfynkeMarietta Memorial HospitalComment on above:Performed By: #### CD:[id number] ####[facility] [place], [place] [address]Djdwhyx [Mass/Vol]131 mg/gLSyfe71-20FovlxnabjMarietta Memorial HospitalComment on above:Performed By: #### ABORH #### [facility] (DEFAULT) [address] [place] [address] [facility] (UNKNOWN) [address] [place], [place] [address]Zorpgli [Mass/Vol]132 mg/zWXjud98-18PgtvzxwhpMarietta Memorial HospitalComment on above:Performed By: #### CD:[id number] ####[facility] [place] [address].UA Microscp Aon 34-94-3978FH RBC Quant0 /HPFNormal0-5BUniversity Hospitals Lake West Medical CenterComment on above:Performed By: #### .Urinalysis Microscopic Auto ####[address] [place], [place] [address]BT WBC Quant0 /HPFNormal0-5BUniversity Hospitals Lake West Medical CenterComment on above:Performed By: #### .Urinalysis Microscopic Auto ####[address] [place] [address].eGFRon 02-71-3508EUT/1.73 sq M.predicted MDRD (S/P/Bld) [Vol rate/Area]mL/min/{1.73_m2} Normal>=60[facility] HospitalComment on above:Result Comment: [facility] have implemented the eGFR calculation [...] 1 Age = yearsPerformed By: #### EGFR ####[address] [address]UCN/Rhon 65-32-7769ARD/Rhsd 01/23 ABO/Rh: O POSNoMer[address] Health [address]. Rita's Medical CenterComment on above:Performed By: #### ABORH #### [facility] (DEFAULT) [address] [place] [address] [facility] (UNKNOWN) [address] [place], [place] [address]UNUL Autoon 16-09-8597UMLM AutoNegativeNoMercy Health St. Rita's Medical CenterComment on above:Performed By: #### ASA ####[facility] (UNKNOWN)[address] [place], [place] [address]YAP w/ Diffon 75-94-8399Sauzgippzbg distribution width (RBC) [Ratio]13.9 %Qimvti18.6-14.8 [facility] HospitalComment on above:Performed By: #### CBC ####[address] [address]Qvptoubsvk (Bld) [Volume fraction]44.8 %Guwswe86.0-53.0[facility] Comment on above:Performed By: #### CBC ####[address] [address]Toonaflmes (Bld) [Mass/Vol]15.1 g/bPFhuyyu75.5-17.5 [facility] HospitalComment on above:Performed By: #### CBC ####[address] [address]IZI (RBC) [Entitic mass]29.7 qdEasbjo39.0-35.0[facility] HospitalComment on above:Performed By: #### CBC ####[address] [address]ETPC98.7 %Kvuhsk97.0-37.0[facility] Comment on above:Performed By: #### CBC ####[address] [address]PMW (RBC) [Entitic vol]88.0 vHQtmkfj72.0-100.0 [facility] HospitalComment on above:Performed By: #### CBC ####[facility] [place], [place] [address]Fuejcfyl063 x10*3/cyLZkfgkz338-623Ldxcesvwb [facility] Health SystemComment on above:Performed By: #### CBC ####[facility] [place], [place] [address]Lpjzhwtr mean volume (Bld) [Entitic vol]9.1 fLNormal6.7-10.6BUniversity Hospitals Lake West Medical CenterComment on above:Performed By: #### CBC ####[address] [address]HLR8.08 x10*6/mcLNormal4.30-5.80 [facility] HospitalComment on above:Performed By: #### CBC ####[facility] [place] [address]GSX8.8 x10*3/mcLNormal4.5-11.0[facility] HospitalComment on above:Performed By: #### CBC ####[facility] [place], [place] [address]XDEqo 48-86-9314Ifcjkca [Mass/Vol]4.6 g/dLNormal3.2-4.9BUniversity Hospitals Lake West Medical CenterComment on above:Performed By: #### ABORH #### [facility] (DEFAULT) [address] [place] [address] [facility] (UNKNOWN) [address] [place], [place] [address]Nazvfjj/Globulin [Mass ratio]1.6 {ratio}Normal1.1-2.2BUniversity Hospitals Lake West Medical CenterComment on above:Performed By: #### ABORH #### [facility] (DEFAULT) [address] [place] [address] [facility] (UNKNOWN) [address] [place], [place] [address]Uoz Phos49 IU/DMtvxjg99-36Fqsgdivrv [facility] Health SystemComment on above:Performed By: #### ABORH #### [facility] (DEFAULT) [address] [place] [address] [facility] (UNKNOWN) [address] [facility], [place] [address]ZKJ [Catalytic activity/Vol]37 U/VKfulrc16-06WcfyvoytdGood Samaritan Hospital SystemComment on above:Performed By: #### ABORH #### [facility] (DEFAULT) [address] [place] [address] [facility] (UNKNOWN) [address] [place], [place] [address]Qbiqy gap [Moles/Vol]7 mmol/LNormal4-12[facility] SystemComment on above:Performed By: #### ABORH #### [facility] (DEFAULT) [address] [place] [address] [facility] (UNKNOWN) [address] [place], [place] [address]PBN [Catalytic activity/Vol]30 U/JDscyqn44-10ZfafntarjMarietta Memorial HospitalComment on above:Performed By: #### ABORH #### [facility] (DEFAULT) [address] [place] [address] [facility] (UNKNOWN) [address] [place], [place] [address]Pexc Total0.9 mg/dLNormal0.3-1.2BChillicothe VA Medical Center System Comment on above:Performed By: #### ABORH #### [facility] (DEFAULT) [address] [place] [address] [facility] (UNKNOWN) [address] [place], [place] [address]Vewfpej [Mass/Vol]8.9 mg/dLNormal8.5-10.3BChillicothe VA Medical Center SystemComment on above:Performed By: #### ABORH #### [facility] (DEFAULT) [address] [place] [address] [facility] (UNKNOWN) [address] [facility], [place] [address]Jcbnqvks [Moles/Vol]100 mmol/RZcudzc74-365HfgsmlhapGood Samaritan Hospital SystemComment on above:Performed By: #### ABORH #### [facility] (DEFAULT) [address] [place] [address] [facility] (UNKNOWN) [address] [facility], [place] [address]WW9 [Moles/Vol]28 mmol/SAnprzw27-40EurhpzyngGood Samaritan Hospital SystemComment on above:Performed By: #### ABORH #### [facility] (DEFAULT) [address] [place] [address] [facility] (UNKNOWN) [address] [facility], [place] [address]Jjuohnmasx [Mass/Vol]0.94 mg/dLNormal0.61-1.24[facility] SystemComment on above:Performed By: #### ABORH #### [facility] (DEFAULT) [address] [place] [address] [facility] (UNKNOWN) [address] [facility], [place] [address]Ufymlhr [Mass/Vol]88 mg/mXLuyfkt38-35UapafxrdcGood Samaritan Hospital SystemComment on above:Performed By: #### ABORH #### [facility] (DEFAULT) [address] [place] [address] [facility] (UNKNOWN) [address] [facility], [place] [address]Xhfvinqkc [Moles/Vol]3.6 mmol/LNormal3.4-4.8BChillicothe VA Medical Center SystemComment on above:Performed By: #### ABORH #### [facility] (DEFAULT) [address] [place] [address] [facility] (UNKNOWN) [address] [facility], [place] [address]Ndkogvq [Mass/Vol]7.4 g/dLNormal6.5-8.1BChillicothe VA Medical Center SystemComment on above:Performed By: #### ABORH #### [facility] (DEFAULT) [address] [place] [address] [facility] (UNKNOWN) [address] [facility], [place] [address]Oauccn [Moles/Vol]135 mmol/TIsgvpz256-200Qleuuokcb [facility] SystemComment on above:Performed By: #### ABORH #### [facility] (DEFAULT) [address] [place] [address] [facility] (UNKNOWN) [address] [place], [place] [address]Xhrw nitrogen [Mass/Vol]13 mg/dLNormal8-26[facility] Hospital SystemComment on above:Performed By: #### ABORH #### [facility] (DEFAULT) [address] [place] [address] [facility] (UNKNOWN) [address] [facility], [place] [address]Oood nitrogen/Creatinine [Mass ratio]13.8 mg/ozBshqxg44.0-20.0 [facility] SystemComment on above:Performed By: #### ABORH #### [facility] (DEFAULT) [address] [place] [address] [facility] (UNKNOWN) [address] [place], [place] [address]Wecq Autoon 79-04-5816Povc Absolute0.0 x10*3/mcLNormal0.0-0.2 [facility] SystemComment on above:Performed By: #### ABORH #### [facility] (DEFAULT) [address] [place] [address] [facility] (UNKNOWN) [address] [place], [place] [address]Nadmpbsdu/100 WBC (Bld)0.3 %Normal0.0-1.2BChillicothe VA Medical Center SystemComment on above:Performed By: #### ABORH #### [facility] (DEFAULT) [address] [place] [address] [facility] (UNKNOWN) [address] [place], [place] [address]Vni Absolute0.1 x10*3/mcLNormal0.0-0.4BChillicothe VA Medical Center SystemComment on above:Performed By: #### ABORH #### [facility] (DEFAULT) [address] [place] [address] [facility] (UNKNOWN) [address] [place], [place] [address]Uhmqeukcluy/100 WBC (Bld)1.9 %Normal0.0-6.1BChillicothe VA Medical Center SystemComment on above:Performed By: #### ABORH #### [facility] (DEFAULT) [address] [place] [address] [facility] (UNKNOWN) [address] [facility], [place] [address]Sjmfp Absolute2.1 x10*3/mcLNormal1.0-4.8BChillicothe VA Medical Center SystemComment on above:Performed By: #### ABORH #### [facility] (DEFAULT) [address] [place] [address] [facility] (UNKNOWN) [address] [facility] [place] [address]Yjvpxqumsxa/100 WBC (Bld)36.1 %Spybou14.2-40.8BChillicothe VA Medical Center SystemComment on above:Performed By: #### ABORH #### [facility] (DEFAULT) [address] [place] [address] [facility] (UNKNOWN) [address] [facility], [place] [address]Ufcz Absolute0.5 x10*3/mcLNormal0.3-1.1BChillicothe VA Medical Center SystemComment on above:Performed By: #### ABORH #### [facility] (DEFAULT) [address] [place] [address] [facility] (UNKNOWN) [address] [place], [place] [address]Cazhwmoce/100 WBC (Bld)9.1 %Normal4.7-13.9BChillicothe VA Medical Center SystemComment on above:Performed By: #### ABORH #### [facility] (DEFAULT) [address] [place] [address] [facility] (UNKNOWN) [address] [facility], [place] [address]Wgcoch Absolute3.1 x10*3/mcLNormal1.8-7.7BChillicothe VA Medical Center SystemComment on above:Performed By: #### ABORH #### [facility] (DEFAULT) [address] [place] [address] [facility] (UNKNOWN) [address] [place], [place] [address]Yrahkj Auto52.6 %Yvjagf04.2-70.8BUniversity Hospitals [facility] Medical Center Comment on above:Performed By: #### ABORH #### [facility] (DEFAULT) [address] [place] [address] [facility] (UNKNOWN) [address] [place], [place] [address]Xwv A1con 81-98-4148Iuqmewo [Mass/Vol]140 mg/iRZpru23-396 [facility] HospitalComment on above:Result Comment: Mathematical Calc approx. The mean gluc equivalency of R8mDtxxorijl By: #### ABORH #### [facility] (DEFAULT) [address] [place] [address] [facility] (UNKNOWN) [address] [place], [place] [address]Gup A1c6.5 % H4uLhtx2.0-5.6BUniversity Hospitals [facility] Center Comment on above:Result Comment: Reference Range: 4.0 - 5.6 % Normal 5.7 - 6.4 % Pre-Diabetes > 6.5 % DiabetesPerformed By: #### ABORH #### [facility] (DEFAULT) [address] [place] [address] [facility] (UNKNOWN) [address] [place], [place] [address]YLdq 94-87-2560GZE Coag (PPP) [Relative time]0.9 {INR}Normal <=3.5BUniversity Hospitals Lake West Medical CenterComment on above:Result Comment: INR has no normal range. INR Therapeutic range is: 2.0-3.0 (AF, CVA, TIAs, DVT prophylaxis, acute DVT) 2.5-3.5 ([facility] heart valves, recurrent thrombosis/emboli)Performed By: #### PTINR ####[facility] [place], [place] [address]MV Coag (PPP) [Time]10.1 sNormal9.2-12.0[facility] HospitalComment on above: Performed By: #### PTINR ####[facility] [place], [place] [address]OEWpl 05-15-0689kTLQ Coag (Bld) [Time]23.5 sNormal 19.5-28.2BlanWyandot Memorial Hospital SystemComment on above:Performed By: #### ABORH #### [facility] (DEFAULT) [address] [place] [address] [facility] (UNKNOWN) [address] [facility], [place] [address]GG w Culture if Indon 46-85-1195Rmnpe (U)ColorlessNormalYellow [facility] SystemComment on above:Performed By: #### ABORH #### [facility] (DEFAULT) [address] [place] [address] [facility] (UNKNOWN) [address] [facility], [place] [address]Ykmwwco Ql (U)NegativeNormalNegativeGood Samaritan Hospital SystemComment on above:Performed By: #### ABORH #### [facility] (DEFAULT) [address] [place] [address] [facility] (UNKNOWN) [address] [facility], [place] [address]RP BloodNegativeNormalNegativeGood Samaritan Hospital System Comment on above:Performed By: #### ABORH #### [facility] (DEFAULT) [address] [place] [address] [facility] (UNKNOWN) [address] [facility], [place] [address]IN ClarityClearNormalClearGood Samaritan Hospital SystemComment on above:Performed By: #### ABORH #### [facility] (DEFAULT) [address] [place] [address] [facility] (UNKNOWN) [address] [facility], [place] [id number] GlucoseNormalNormalNegativeMarymount [facility] Comment on above:Performed By: #### ABORH #### [facility] (DEFAULT) [address] [place] [address] [facility] (UNKNOWN) [address] [facility], [place] [id number] Leukocyte EsteraseNegativeNormalNegativeGood Samaritan Hospital SystemComment on above:Performed By: #### ABORH #### [facility] (DEFAULT) [address] [place] [address] [facility] (UN[facility]) [address] [facility], [place] [address]MO NitriteNegativeNormalNegAvita Health System [facility] Comment on above:Performed By: #### ABORH #### [facility] (DEFAULT) [address] [place] [address] [facility] [address] [facility], [place] [address]BM pH6.4Rmsbaa2.5 - 7.8BlanWyandot Memorial Hospital SystemComment on above:Performed By: #### ABORH #### [facility] (DEFAULT) [address] [place] [address] [facility] (UNKNOWN) [address] [facility], [place] [address]IN ProteinNegativeNormalNegativeGood Samaritan Hospital System Comment on above:Performed By: #### ABORH #### [facility] (DEFAULT) [address] [place] [address] [facility] (UNKNOWN) [address] [facility], [place] [address]RO SourceClean CatchNormMorrow County Hospital SystemComment on above:Performed By: #### ABORH #### [facility] (DEFAULT) [address] [place] [address] [facility] [address] [facility], [place] [address]PT Spec Grav1.010Ermxza9.003-1.035[facility] SystemComment on above:Performed By: #### ABORH #### [facility] (DEFAULT) [address] [place] [address] [facility] [address] [facility], [place] [address]RB UrobilinogenNormalNormal0.2 - 1.0[facility] SystemComment on above:Performed By: #### ABORH #### [facility] (DEFAULT) [address] [place] [address] [facility] [address] [facility], [place] [address]Msvzgfooljet (U) [Mass/Vol]NegativeNormalNegativeMarietta Memorial HospitalComment on above:Performed By: #### ABORH #### [facility] (DEFAULT) [address] [place] [address] [facility] (UNKNOWN) [address] [place], [place] [address]Riewvudvzqls Office/Clinic Noteon 82-66-1847Ydsqawzmqxbj Office/Clinic NoteChief Complaint Cervical follow up-EMG, MRI, [...] Melanoma Migraines Neck umu (more content not included)...[facility] Thyrotropin [Units/volume] in Serum or PlasmaOrdered By: Jack Ortega on 73-91-4209YJH Qn1.70 m[IU]/L0.45-5.33[facility] Medical CenterThyroxine (T4) free [Mass/volume] in Serum or PlasmaOrdered By: Jack Ortega on 91-30-8366Ybrt T4 [Mass/Vol]0.74 ng/dL0.61-1.12[facility] Triiodothyronine (T3) [Mass/volume] in Serum or PlasmaOrdered By: Jack Ortega on 76-07-7985Q0 [Mass/Vol]1.62 ng/mL0.87-1.78[facility] MRI Spine Cervical w/o Contraston 37-17-7199NXY Spine Cervical w/o ContrastMRI cervical spine without [...] Signed, Electronically Signed in Other Vendor System)Normal [facility] HospitalXR Spine Cervical 4 or 5 Viewson 32-21-4177JY Spine Cervical 4 or 5 ViewsC-spine radiographs [...] Signed, Electronically Signed in Other Vendor System)Normal [facility] HospitalXR Spine Lumbosacral 2/3 Views w/Bendingon 54-93-4694YA Spine Lumbosacral 2/3 Views w/BendingCLINICAL HISTORY: Follow-up [...] Signed, Electronically Signed in Other Vendor System)Normal [facility] HospitalNeurosurgery Office/Clinic Noteon 12-02-2023 Neurosurgery Office/Clinic NoteChief [...] node dissection (2011) Excision (more content not included)...[facility] Activated partial thromboplastin time (aPTT) in platelet poor plasma by coagulation aOrdered By: Mil Agarwal on 70-76-4595hPIC Coag (PPP) [Time]31.0 s25.1-36.5FPomerene HospitalComment on above:A hematocrit value greater than 55% may lead to inaccurate results in coagulation testing. Patients having hematocrit values >55% require a special collection tube for coagulation studies. Please contact the laboratory at [phone] for redraw instructions. Basophils Auto (Bld) [#/Vol]Ordered By: Mil Agarwal on 33-83-8140Emwzobyfm (Bld) [#/Vol]0.1 10*3/uL0.0-0.2FPomerene HospitalBasophils/100 WBC Auto (Bld)Ordered By: Mil Agarwal on 76-37-6978Ipzszgmgt/100 WBC (Bld)0.8 %.[facility] Medical CenterCarbon dioxide, total [Moles/volume] in Serum or PlasmaOrdered By: Mil Agarwal on 95-16-7713KM7 [Moles/Vol]29.8 mmol/L21.0-31.0[facility] Medical CenterChloride [Moles/volume] in Serum or PlasmaOrdered By: Mil Agarwal on 34-04-2917Pkwmruwn [Moles/Vol]103 mmol/L 98-107[facility] CenterCholesterol [Mass/volume] in Serum or PlasmaOrdered By: Mil Agarwal on 08-72-3783Avzjmbthcwo [Mass/Vol]129 mg/dLLow 140-200[facility] Medical CenterComment on above:Chol less than 200 mg/dl low riskChol 201-239 mg/dl borderline riskChol 240 mg/dl and greater high riskCholesterol in LDL Calc [Mass/Vol]Ordered By: Mil Agarwal on 11-25-2023 Cholesterol in LDL [Mass/Vol]64 mg/dL0-100[facility] Comment on above:LDL ATP III CLASSIFICATIONLDL less than 100 mg/dL OptimalLDL 100-129 mg/dL Near or above zpurnnbUZA045-671 mg/dL Borderline highLDL 160-189 mg/dL HighLDL greater than 189 mg/dL Very highCholesterol in VLDL Calc [Mass/Vol]Ordered By: Mil Agarwal on 86-68-8877Xngsalgbnfk in VLDL [Mass/Vol] 33 mg/dLTogus Va Medical CenterCreatinine [Mass/volume] in Serum or PlasmaOrdered By: Mil Agarwal on 80-84-2689Ptnqilpcdk [Mass/Vol]0.95 mg/dL 0.70-1.30[facility] Medical CenterEosinophils Auto (Bld) [#/Vol]Ordered By: Mil Agarwal on 66-97-8159Iecapxiiyeq (Bld) [#/Vol]0.4 10*3/uL0.0-0.45 [facility] Medical CenterEosinophils/100 WBC Auto (Bld)Ordered By: Mil Agarwal on 33-35-2792Shggnsdokii/100 WBC (Bld)5.1 %.[facility] Va Medical CenterErythrocyte distribution width Auto (RBC) [Ratio]Ordered By: Mil Agarwal on 28-07-4677Tkxivrhmaba distribution width (RBC) [Ratio]14.2 % 12.0-14.8[facility] Medical CenterHematocrit Auto (Bld) [Volume fraction]Ordered By: Mil Agarwal on 11-87-8821Eflxlaopzg (Bld) [Volume fraction]42.7 %38.8-50.0[facility] Medical CenterHemoglobin [Mass/volume] in BloodOrdered By: Mil Agarwal on 36-06-9418Zuxxmlepkd (Bld) [Mass/Vol]14.5 g/dL13.0-17.0[facility] Medical CenterINR in Platelet poor plasma by Coagulation assayOrdered By: Mil Agarwal on 77-14-8803PPS Coag (PPP) [Relative time]0.9 {INR}[facility] Va Medical CenterComment on above:INR Therapeutic Range A) Pre- and [...] by Automated counOrdered By: Mil Agarwal on 53-87-3026KRB corrected for nucl RBC Auto (Bld) [#/Vol]8.0 10*3/uL4.1-10.5FPomerene Hospital Lymphocytes Auto (Bld) [#/Vol]Ordered By: Mil Agarwal on 11-25-2023 Lymphocytes (Bld) [#/Vol]1.9 10*3/uL1.00-4.8[facility] Lymphocytes/100 WBC Auto (Bld)Ordered By: Mil Agarwal on 11-25-2023 Lymphocytes/100 WBC (Bld)24.1 %.[facility] Auto (RBC) [Entitic mass]Ordered By: Mil Agarwal on 02-59-9854CPU (RBC) [Entitic mass] 29.7 pg27.5-35.2FSouthwest General Health CenterHC Auto (RBC) [Mass/Vol] Ordered By: Mil Agarwal on 85-75-0127JCNE (RBC) [Mass/Vol]34.1 g/dL32.5-35.6 [facility]V Auto (RBC) [Entitic vol]Ordered By: Mil Agarwal on 05-96-8775EZS (RBC) [Entitic vol]87.3 fL83.5-101T[facility] Va Medical CenterMonocytes Auto (Bld) [#/Vol]Ordered By: Mil Agarwal on 56-93-1490Nkbkqrgvt (Bld) [#/Vol]0.8 10*3/uL0.0-0.8[facility] Medical CenterMonocytes/100 WBC Auto (Bld)Ordered By: Mil Agarwal on 11-25-2023 Monocytes/100 WBC (Bld)9.4 %.[facility] Va Medical CenterNeutrophils Auto (Bld) [#/Vol]Ordered By: Mil Agarwal on 23-32-1476Jiywdcetggf (Bld) [#/Vol] 4.8 10*3/uL1.8-7.7FPomerene HospitalNeutrophils/100 WBC Auto (Bld)Ordered By: Mil Agarwal on 03-44-4690Oxtibzrghqr/100 WBC (Bld)60.6 %. [facility] CenterNo Panel InformationOrdered By: Mil Agarwal on 42-35-7108Jwflfbysx GFR (CKD-EPI)> 60.0 mL/MinTogus Va Medical CenterPharmacy Creatinine Clearance (ChemN/AFPomerene Hospital Nucleated erythrocytes [Presence] in Blood by Automated countOrdered By: Mil Agarwal on 34-20-1764Bxsilnsvs RBC Auto Ql (Bld)0.1 /100{WBC}0-0.5FPomerene HospitalPlatelet mean volume Auto (Bld) [Entitic vol]Ordered By: Mil Agarwal on 63-80-3973Cmyczgcx mean volume (Bld) [Entitic vol]8.5 fL 6.6-10.1FPomerene HospitalPlatelets Auto (Bld) [#/Vol]Ordered By: Mil Agarwal on 31-21-7539Xjbcpdxoo (Bld) [#/Vol]268 10*3/aN311-600MtfbzmaslTogus Va Medical CenterPotassium [Moles/volume] in Serum or PlasmaOrdered By: Mil Agarwal on 05-15-2360Duuniykrk [Moles/Vol]4.2 mmol/L3.5-5.1FPomerene HospitalProthrombin time (PT)Ordered By: Mil Agarwal on 10-28-8324AY Coag (PPP) [Time]10.6 s9.0-12.9[facility] Comment on above:A hematocrit value greater than 55% may lead to inaccurate results in coagulation testing. Patientshaving hematocrit values >55% require a special collection tube for coagulation studies. Please contact the laboratory at [phone] for redraw instructions.RBC Auto (Bld) [#/Vol]Ordered By: Mil Agarwal on 67-46-6216ARW (Bld) [#/Vol]4.89 10*6/uL3.90-5.60[facility]red Hospital Daytonerum or plasma anion gap determinationOrdered By: Mil Agarwal on 90-12-2206Vvszq gap [Moles/Vol]11.4 mmol/L6.0-15.0[facility] Hospital Daytonerum or plasma high density lipoprotein (HDL) cholesterol measurement Ordered By: Mil Agarwal on 68-43-2301Zagjceegvtj in HDL [Mass/Vol]32 mg/dL 23-92[facility] Va Medical CenterComment on above:HDL CHOL ATP-III CLASSIFICATION Cardiovascular RiskHDL > or equal to 60 mg/dL LOWHDL < 40 mg/dL HIGHSerum or plasma total cholesterol/high density lipoprotein (HDL) cholesterol mass ratOrdered By: Mil Agarwal on 10-94-3808Bdgicdapknw.total/Cholesterol in HDL [Mass ratio]4.0 {ratio}<5.0[facility]red Hospital Daytonodium [Moles/volume] in Serum or PlasmaOrdered By: Mil Agarwal on 20-38-7738Sobjcj [Moles/Vol]140 mmol/Z657-485TurtyfajrTogus Va Medical CenterTriglyceride [Mass/volume] in Serum or PlasmaOrdered By: Mil Agarwal on 11-25-2023 Triglyceride [Mass/Vol]167 mg/dLHigh0-149[facility] Comment on above:TRIG ATP III CLASSIFICATIONTRIG less than 150 mg/dL NormalTRIG 150-199 mg/dL Borderline highTRIG 200-500 mg/dL High TRIG greater than 500 mg/dL Very highStandard traceable to the Center for Disease Conrtrol and Prevention (CDC) test method.Urea nitrogen [Mass/volume] in Serum or PlasmaOrdered By: Mil Agarwal on 93-12-8554Sdmt nitrogen [Mass/Vol]21 mg/dL7-25T[facility] Va Medical CenterWBC Auto (Bld) [#/Vol]Ordered By: Mil Agarwal on 00-81-6733JJX (Bld) [#/Vol]8.0 10*3/uL4.1-10.5FPomerene Hospital GLYCOHEMOGLOBIN A1Con 46-40-6717SEX RECOMMENDATIONSEE Adams County HospitalComment on above:Result Comment: ADA RECOMMENDED LIMIT 4.0 - 6.0 ADA THERAPEUTIC TARGET < 7.0 ACTION SUGGESTED > 7.0Performed By: #### A1C #### [facility] [address] [address] [address] Andi EnamoradoGlucose [Mass/Vol]280 mg/dLBarney Children's Medical CenterComment on above:Performed By: #### A1C #### [facility] [address] [address] [address] Andi EnamoradoHbA1c (Bld) [Mass fraction]11.4 %Critically high4.5-6.2The [facility] Va Medical CenterComment on above:Performed By: #### A1C #### [facility] [address] [address] [address] Andi EnamoradoDermatopathologyon 83-89-5932BsshzihtoljllutoFhew TIMDONELL [facility] Pathologist: DEVIN JORGE MD Date [...] M.D. Electronically Signed Out By DEVIN JORGE MD/[facility] By the signature on this report, the individual or group listed as making the Final Interpretation/Diagnosis certifies that they have reviewed this case. Diagnostic interpretation performed at [facility]atopath [facility] [address] [place] [address], [place] [address] Clinical History: Rule out benign nevus vs. melanoma. B, C, D. ([place] office). Specimens Submitted As: A: SKIN, DEBULK (L) HELIX (B,C,D) Gross Description: Received in formalin are three shine pieces of skin. 1.) Received in formalin, labeled B , is a shine, ellipsoid piece of skin measuring 2c2j1pf, oriented by the surgeon with orange ink on one margin and black ink on the opposite margin. The specimen is embedded en face in toto in one block. 2.) Received in formalin, labeled C , is a shine, ellipsoid piece of skin measuring 0d4l1fe, oriented by the surgeon with blue ink on one margin and black ink on the opposite margin. The specimen is embedded en face in toto in one block. 3.) Received in formalin, labeled D , is a shine, ellipsoid piece of skin measuring 9x6t7jh, oriented by the surgeon with green ink on one margin and black ink on the opposite margin. The specimen is embedded en face in toto in one block. dcp/06/29/2022 [facility] [address]rell StreetComment on above: Performed By: #### D #### DermatopathologyDermatopathologyon [id number]Azlj: DONELL DUMONT Pathologist: DEVIN JORGE MD Date of Procedure: 05/28/2022 Date Received: 05/28/2022 Date Reported 05/31/2022 Submitting Physician: RAAD CLINE MD, Location: [facility] Copy To/Referring/Attending: MD SPARKLE GLOVER FINAL DIAGNOSIS 4 SLIDES, [facility], #[id number] (BX: 05/02/2022) SKIN, LEFT SUPERIOR POSTERIOR HELIX, [...] REPORT A. 4 SLIDES, [facility], #[id number] (BX: 05/02/2022): SPECIMEN Procedure: Biopsy, shave Specimen [...] ADDITIONAL FINDINGS Additional Findings: None ADDITIONAL TESTING Product Director Blocks: Normal Block: None Tumor Block: A1 Electronically Signed Out By DEVIN JORGE MD/[facility] Diagnostic interpretation performed at [facility] [address] [place], [place] [id number], [facility] [address] Clinical History: 4 MM PAPULE, NEOPLASM OF UNSPECIFIED BEHAVIOR VS. BASAL CELL CARCINOMA Specimens Submitted As: A: 4 SLIDES, [facility], #[id number] (BX: 05/02/2022) Gross Description: Received for consultation from [facility] are four slides labeled [id number] (BX: 05/02/2022) along with the corresponding pathology report. Slide/Block Description 4 SLIDES, [id number]. Keep Slides: N Slides Returned: N Personal Consult: [facility]. Gabriel HospitalComment on above:Performed By: #### D #### DermatopathologySURGICAL PATHOLOGYOrdered By: Luis Joseph on 36-44-8955Ksci ReportSurgical Pathology Report Case: [id number] Authorizing Provider: Vashti Llamas DO Collected: 03/13/2022 [...] - COLON LEFT BIOPSY, r/o microscopic colitis [facility] HospitalFIN[facility] DIAGNOSIS z4dgwIQoMCZcoOVaKTTqMQkgkoXdWCRizTUfS2FnohhgWNzeUH7eQR5mcXjfqSFoiAGfYZGkUvLti9hw v806jTIeh6hmGANTmhdt xJn0nSmxI30hr0Q8EwjlK33krUZnOIM8DNXuGJYiwIRkUACuHLO6YJBahZFrQ2ccCGByRI8cwcrhIAdg HZvkRROkeLC2NGEzqJOb O3TkGVPsJXcfICPicwa8SxCmIc1bqSQpdLtnALkuJNKkBQAoDPajSCYyDbAzXG8fVUFgRSojFAigcFEr cCdnKBngLyufkXP0Yzwr xS1uDDCsDSMpzZFlN53ziKrjVe85SEjwbSSex3NfHTfsgLfopb0fXYotX46nr6UqTbGtoEIasdX0tI8h DtqztK3bCMXwCGPrcXBv Bx2xFMOjSPVfF6Ixv3QeW4RbnNJgAHKotvVlGC7bZPlcePSzqWNntgMoeVAhNXXjMtmaqL8fLSmaksZv Ex7zBGB0o18jE3xwGDYh b0PjmYjiyVuqFLldbdRmw4iyKMEdUD41OGX6gkVfLyJhiIEao3Dug5f3hILfvoRdcOHzjk1zpXaoDBQf dEMbNYAat90yDUopczKa FV7kDREgZOXFseFfaiibVX4dKWRwOfGWRfXwfJgyojqqGOfovnRczOaaPRRBNuJcZALpzfN0RVUtTNDr i9fllutxuB0qbYGwM5Rl zPh5EKyniiSrOK8sDVQnKGKRrUE1pXEvVPEgLA4zuXCxRNqeckEkcJhwYEBQElQvXDYeiIvzLWvjpMnu xH9mKYCwx5WpyOhqkIhr KYfkvjTnl5efVCQaXNutHGAle0ZbCI50M33pQLD1gEDoRG4fTLWnQLfdy3Z4cKKzLDa3NCZbfIdfhd6y aMqyKVuhcM1dXMPbVZUO gKfboLIki9dazpcmLtlpnGK9SqcouH7mHSHsQRHgoDLgV71fc58dLdKmgSRyi0Zmz0f6sESdxrMhkHGf dy8qhJfrWKKziXXcTEZx u29qVMozveWxHB2sHXOhVCYLwwIyllqpIE6eQVBlDjSiwW0nvI2jtZGmBmDttwHuj7tmQJfjwj69drDq g8bhfYrsWyhjhY4xRWyr qrXrKb7nYVhhCvHuB89lx95ySLFhc7YlsWdduOsiNQpbcjQev8jnMTUqoB3nbKDooFOik1QpAZgwmEwp nf5mPTeiV87ga6HqBeRq zGUeszA2cX7kFkiexL8gYXUqAFTqtFPhLp4hGRRvFLYyS8Lqo3YjkTnooOqqX4w8dZRel7NkB79naOQa NA3cxEWnF82ywBKihu1paQAnsG==Diodfvdlr ClinicGross Description z3ordFRgLIYlnKNTRNCpHHNwSK0snMedbPw2yKpnPVRjpeF7mUVfQYqvw7dwYFA5i5ebinXTVixsMZRw SXgiFNZbvvkcNqM8PZrj EDAzlnjkDRj6JYztOEMeeJU4QKAhnOPiD3DhCALtEQ1ctwa0REB3SQdwFIZgGrK5GJCzLsTsCvwhECb9 ZDFktlN3Iin9FQSxUYGz rTLyw3N0KXbpaozuLFEjgKRwS057SRmlr2XdaLSlLBoodPTtOMJRClzxBfzdnWvil5AkzDVhGXdwATUt OXGnJIsbvygqCSt9RTTu QMrdfMKpOA5iuGjzCylkeLpcy3MnyKTqIIvgSLDoUNUySHooJWFbRR0CTyMtKNPoSWOtPnQ3HtP9FJk0 OSBPVlMgIiAgMjUyMDQ0 PrvcEJq3RHn7GKePIgR2EVPnIBS3UAE1TCJ2JKI7JOapxFUrAIbzLfUCgzgwwAUgYULoULvklkA9URTi YWluIEEuIFNNQUxMIElO XHSNUFmHDODMTZ5KQ5hzuBXrEH9NVAZwyDMXEEB7RG8jHHJHRsqxrPIlKCKlnKknDXlfeH2eJO2TRWn1 cmNoXGZzMjAgUmVjZWl2 UVApmE7gSh7siKLesK1dZCJzQD87dZJlfIrrODRgPGVuubUsNmW1WL6nVXVjTfYgoRsic7YxYELvP9Ls Q7R3aM3cJTJbQFEnUGD1 UQXlWeX9ANTnGWSaqJ0uTB16IHkacOGxeQXimXK6SQEvlS5lm45jTVPjt6FqtJHsLe9CAHIaoJEYLNW9 PA7kJQc2KXyaWPNoX5Zq T7NcmdGzhUQhTEWczlSgh9vqLZU1OGUniIWjjVMtWfQxLobeEEG1MNVaSZtvRC8Zh5exFJHwiLLbXLS2 IFxcaWQgNTEwMDIgXFxk PxTxU9JSIOJbHjWaBNDxHxzwTKy2HYq5BM7JZgZwXSGyUQDcIUB8GKOhHFu0VVyiBI5TPHn1QvG4UPQ3 XBNpLAOqTMHvSVo4JXQv CHagWKBhbPFsRUfcJygnXIquI29fkMnlyO2xYxZaOikxkGUrlsSGIvXQPJ7BRUMDUFBPW2NQZFzaDYYf POrfNTXoF22ye0FUr4Xl FR3VZYj6uoWcgeszdV5nGFPalkJpSCbsuYElK1apViBpFCZHAEHbeOSwUPHavnGeb6DzCVvkvcAxubPy tkOipCjrE4Hsd9AraXJs FONaSAsow13qxAA8tZDttOCoaUVul7OnjW2qOZZeJJV5GHQeSiH8PDRgHpOeiN6vHE04ORhfxEUfuRIo gZI0OUPcyG9xp58cSFIp g2EeyBNmOu6XDOVuwDPLKEZ5HY1yERb6APutTJJvO6HaT5SwnxBjzJNwPABhocEnl7vhZZP3PHUytAQq eLIaQnNnKjlgCRQ0FERd BXsgIR9Vt3xlTYUsjASwABU1RCspvCKkVEKjVAAoAPriPiJyB0EVDPPjZaAcZNDlLgwsIHi8FCu9PU8T UyAiICAyNTIwNjIyMiIg EZv6RPvlNN8UMJb6VvR8RKI5XOBkDYCzFZByXDl9GAXaNZilRDDltAAjOEvbRdfnNUjkI64saSfryO4h ZnMxNlxwbGFpbiBDLiBU NqCXD7TDTsGYIHKFUR8CLBFWKLaMRJTbzbLUOkqtdQkyCqMabNOyFvNcBLpavODubJQbGFtrvsOhrkef MCANClxsdHJjaFxmczIw ZJWpG6RncbQcTDubIULdrx0eiDmzQSjmIU6wUZSztMGbWEYzFjP2DL2rPCNxRmHjjXztp9ToUJ0oGBN6 cmluZyAwLjUgeCAwLjIg aSDvCnCoX89oHXWovAQuxVyow4QvcCj0oCCtEPikOX4oETDjCSVtLXK5ZG9PCrdtwIzpXtHjsGMpPuDv flC7APKdiLOkABX0ES3g EUQqlnjaCXViFMEmHLH8UJqvrJ96aGNqXEIqXSPunDLfaZvknHSlxpQVZqgtPppqrWmus9XhgBRrTTww LJYnNLTdTRxjJJZdVX6N YjBdZAAoBNVtYcO9NnE5XPk5QYBPNyEoHaJlQvQwWVFvJxGdLXp5ZZd1OHlQKfH2EEUdSVU7ULBzICF7 BLX3SDxbjEWdBQuwQaND kxivsXGoNLIePZtvecT3DPWyPAnpFCKuKLIjfVpcfG2jYZ8oPYQBCCbSQZeaVVjNZD8yFcpGXXLILSVf ciANClxlcGljTmVzdERv OyZgSAxtaZXzpYUyGCarbyAxgesrVYEZHgxxaJUyaCtctkUbHIXvQ7TwnzJcPIzfCACajm8iiCzuRRTn TRWukHg0wIJcYUUruAOu SVUjf5SwaVAkRBJqv3N9HUJbe0R6XKMpB4dxJLxfoSjiZqN4isOyUdGqnQAfRlRniCSbDhRbJ54yIDMg yGVtbFavx5NvlCo9oDVb VAnmSP8tVYVtCFDoBMQ8IC4OWhlcqYnzLdRnxRVaStBqinX3LSIavTCxBDO1ML4eXZDisefbNZDqZOZk EGO2SVdkcI01aBQmUZCa NMZpcLOdeFyzdIEdltWUIlzkGqownMoxk0LqhQRfDUmjVGLyOLJaGHczIXBhMI3DQoUjIQFxEPXjCkE6 XrR7TGk9LCWXXmZzVjFk HqPzAGGdBzOcJRz2VNr1HHxFOfZ8YCThUZT6PLT7EWK8GRR5YYiejKEqPYfoHbODjaaamFNhBBThLCtc tyX8VAMoGUpzEDDeXOWg vIewtY9lBV6lJ59EJ03zPorQLWIrYgrNOYBBIILbewMBEsumlRhfLtZlqMTkOpZaFYjbwKFdaMVlZFek bjBccmluMCANClxsdHJj cEqzqrYqPALcB7RaapIoLEhyGSGxge3ygOebBWNfDQGriCc8oRKcAPPpvBRbTQVts6PkiVZmDVVky1E4 ZCKaz1T6ZWVoV5biCRnb tVqyFiG7oxLjAcJkqGDjHdJzzHOePuAjI48xSSLktOMuhXyno9MdtLa1eXXjLQaeFVC4ifZzZFOhAAU3 IMEzVUsoBJXlC17qp6JY d1WqZIIyh4pzwPdpa8AwxSNrNNmtIYAdjOQuJVjelU2bAkBdf5choXh5RYxwwkD2JMPimi0ikSoyfC8d XUc7ODlnARCcV9TjC8Nx JBwdIVY3DQOtLqNzBMQxHZTXBtEiAfWbTKUdGxYcDnJrOLv3EVekV3RVZFGvVEA9MfO5XeO5UvD3XKp8 MIWNMx2lWGPhFdc2FQB5 MJT6FUR0EZNcXORoCkZfXVPeOIQjWQvsSJpbiOFpEH5lhAnghHBpswrowkF4HIYqXLmuZTHaKUMXPV0Q IExFRlQgQklPUFNZXHBh erCUGmwruWfeKhGjiDQhCtOcEFqweCIebLQpNWbsfrFcmplxUJELZglkxDHmtWdoabIkBFTpJ9VcmtYl TGurKRRnga1feXcgNWWc RESunDn3jLVnYESewVQhLREgw1FqsTOoRFFks3B6BBTru9M2DQAyE7sdRJfpiDwkMnO1tbFnUcEgdJAt QsLezRDpYbWbF84wOUSm pLGjiIdxc4NizAu7fZOeKAbcMLB9wgHmJTBdQSQ1OZQwFMggRXHtFQavaBEoLB3QL4Ihs3KlEYuibVtq KFRkz40ldXXgSj5kqESl YDH1TBXhJQBbfEWmAGIYuStfvKGsTDh4RLSbABEwpTcvINX2LE6tVBZiCNYbyQYtVFkkB4isINSoLHWa iDHuDC5CVRBpwqJLSkuR PNUjAaB7KtLbFoYfTBeaYjSCMJdoSZYxTDbvKIRkU49rd0MZw5EpGBUtt0fmaZhvv5DobKEmXBuhLTKc jNAtHNfngC8nXxMjh9pi jFs0FGfmdvQ6KCRxtm8ydHncjY6mIXpdb3qiEGQ1MFIyeBWuzBKcVMkvgRonnE2vBhBvMzi9VNvjCYCc C0PqW2HecqR4KJJlMXbiOXBdZQQgXHn6Ibilvjilf ClinicPerforming Lab v3xvzPOpSDMziPSzHrEjMSFmFIAyf9eqBDGtpXZcFrAsNfRgIzJqDpfkoJUqJWGgLdPxs1bgs908cUEc n8opRSCvWqS7fFXvWAHk hDEbR995XDPtQHiub0zax1EkOWFoqJGac1Z3EZPXobrqiPf5pItqJ87ri3H9WqllD1qiGFCpMEMtH2Oz EU6gNYMgUsw2HGL7LEU7 OOAxDLSbS8AwHN2tPIEttMGxUWh7w9reaPpfNFCgJVB8w3hqWEjdxfCcKP0fbw4fdXi9u4vdmnUgANOj FJWleZFKHWJfY4SoiPud Zn1vnHv1sLqoZseiBSF5Waf3UI6uui08wjk9bDwsJYWiatbaEbK7TFaiXTTvpvzzHBm1NFvoKCLteZC3 FLCsdGAoD3WpRBEqZZ7u kix1ELK0CPdzXAKxMpT8LSMegAQkICXufGvsNDpqg489SQK5CqNjKD7hM2Nyz0P4qX0haGXcBLZosCRz LuAgKUPaqq5amCIlDAta i6GkEMM2oqE5eWTfdWViEJGgPB42Xruto7AjCdiqd8NpM39hoBU0KXinx5ocBW2mUqU3gpBbWSwte5il fX9sAgX9PTuvLS1aCF1s NOQfgG5aafseZBZgWnZoqkkjWEDpbUpjheQzZu4miLghRNL1DLuwT3cohO7fOhK7DQmtZ7nwiY4rUNb6 LGcaaYH0SPUcaM5hGG6p brrbi3axINvdDAaqSAQgbfM1llU5ILSaaOLqV7ZcsA5gQZDqOC6gucfrm9vzNUR4PKynTCUuVWJ9IpZg ODYhl5Vwnrj1UrHtz0Oq nIVfOZjoA83eq405CPBrisKxC4hpbGGgrkcavWIazsifBVxojjF1CJDtZUZtJVpqRWQnNEFhBkRiyWIp ZzEwMzNcaGljaFxmMVxk ZgIkKHVmIBrzG4qdJaJfAbWaEwCYaDElyd5maTauPEemoBOfgHYrbOY2zL3wDEQidtPtpb3cXDIjbGTZ iGM1INwljmQbG6udwlwg SEvkuPvgcoJetMBIe9RrnZEttJpoKln2LASODNlbxDUbEGEQGRydLWC5JygviZPlTDYfMDSZGPC2ZOBp NCAgICBDTElBIyAzNkQw QcK8RCLsFJSillglXIVusWBqRGzzcUBtdxxzXHwjaoS1RXBwCSysEHJzCCXnHlGxdDKkHhLxOiJseCza aFxmMVxkYmNoXGYxXGxv C5uyOzYoJ7UjKCOtGnWgxXHfU6qfEYGjz9WzbI3jgNFuvTrlsP0aObAkQhSjDpqkFN1bYAShV1mrmGTy RJNmGUTgD8alDoNklN3m oMxkJHxarxDeDPMronKjhY3mVzLFlUFtyhNPRdUOa4K1NCFmAS2pID2bzARjoH==Jnuultgmn Clinic [facility] ClinicEGD Study observation Narrativeon [id number] [facility] G[facility] Patient Name: Donell Dumont Procedure Date: 03/13/2022 10:15 AM Date of : 1975 Admit Type: Outpatient Age: 46 Room: [place] [address] Gender: Male Note Status: Emblem 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 Procedure Code(s): --- Professional --- 30524, Esophagogastroduodenoscopy, flexible, transoral; with biopsy, single or multiple Diagnosis Code(s): --- Professional --- R13.10, Dysphagia, unspecified K31.89, Other diseases of stomach and duodenum R19.7, Diarrhea, unspecified CPT copyright 2020 [place] (more content not included)...PR[facility]ATIONSt[facility] HospitalRadiology Study observation (narrative)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 [facility] HospitalRadiology Study observation (narrative)[facility] HospitalPhysical Therapy Noteon 01-30-2022 Physical Therapy [id number]#1.00OTMem[facility] HospitalProvider [place] 48-03-6314Gbirgdcv Orders [id number]#1.00[facility] Coding Summaryon 62-79-0719Koddhs SummaryHTMLBase 64 NmdtmiccRHp8tCu+PGhlYWQ+AF2JQYJgV66llQBgiS7XF8fTBT9COYEGRDRAGP4WCG5jgKE2DJwmK8Md biAv [file] b3J (more content not included)...[facility] HospitalProvider [place] 01-17-9093Mjerpjeq [id number]#1.00OTGTNorth [facility] Hospital HospitalProvider [place] 18-02-1474Swjaghit Orders [id number]#1.00OT[facility] Coding Summaryon 42-25-6555Ltvlvr SummaryHTMLBase 64 TzutanqyITl3oYr+PGhlYWQ+RS6ERVMpL67xhJMapA9ZL7eLUM6ZGWEEKPZWPP7XVV4ivLO1MJqmE4Do biAv [file] b3J (more content not included)...[facility] [place] 42-43-2006Zikghqhi [id number]#1.00OTGTIFF [facility] Vital Signs Date TimeVital SignValuePerforming SxnrcyswaYjbhkqvy96-98-5967 16:24-0500Body zhagfp449 cmGregory CRUZM Work Phone: [facility] CenterJarxppjael91-93-4636 16:24-0500Body mass index (BMI) [Ratio]27.09 kg/c1WuifrnaxGregory CRUZM Work Phone: [phone] [place], [place] [address]Qijlbkyxhr59-35-0671 16:24-0500Body .71 kgNicblanca Diehl DPM Work Phone: [facility] CenterTvdqdjvcym19-61-5369 16:24-0500Respiratory rate16 /minGregory Diehl DPM Work Phone: [facility] CenterKfalzmujul07-12-1222 08:32-0400Body ptflei341.96 cmBenjamin Ball DO Work Phone: [phone] [place], [place] 3056410-29-2025 08:32-0400 Body mass index (BMI) [Ratio]28 kg/o9Womfyuvs Ball DO Work Phone: [phone] [place], [place] 3056410-29-2025 08:32-0400 Body fwoavc93.88 kgBenjamin Ball DO Work Phone: [phone] [place], [place] 3056410-29-2025 08:32-0400 Diastolic blood akirbget41 mm[Hg]Jack Ball DO Work Phone: [phone] [place], [place] 3056410-29-2025 08:32-0400 Heart rate78 /minBenjamin Ball DO Work Phone: 1(027)[address] [place], [place] 3056410-29-2025 08:32-0400 Respiratory rate18 /minBenjamin Ball DO Work Phone: [phone] [place], [place] 3056410-29-2025 08:32-0400 SaO2% (BldA) [Mass fraction]96 %Jack Ball DO Work Phone: [phone] [place], [place] 3056410-29-2025 08:32-0400 Systolic blood piapdsdn767 mm[Hg]Jack Ball DO Work Phone: [phone] [place], [place] 3056410-27-2025 16:19-0400 Body uzjghv809 cmGregory Diehl DPM Work Phone: [facility] CenterJftckohnfn00-37-2255 16:19-0400Body mass index (BMI) [Ratio]27.09 kg/v0Lmdobuyjblanca Diehl DPM Work Phone: [facility] CenterYiidqhglla41-66-9937 16:19-0400Body yzknyr52.71 kgNicholmarvel Diehl DPM Work Phone: [facility] CenterRupxdieauf16-02-3915 16:19-0400Respiratory rate18 /minGregory Diehl DPM Work Phone: [facility] CenterDlhyupunrj40-95-4669 08:36-0400Body wxwhtu365.96 cmBenjamin Ball DO Work Phone: [phone]10-15-2025 08:36-0400 Body mass index (BMI) [Ratio]27.8 kg/n7Ggywibbo Ball DO Work Phone: [phone])[address] [place], [place] 3056410-15-2025 08:36-0400 Body dqwpop17.54 kgBenjamin Ball DO Work Phone: [phone] [place], [place] 3056410-15-2025 08:36-0400 Diastolic blood odklkqoz85 mm[Hg]Jack Ball DO Work Phone: 1(018)[address] [place], [place] 3056410-15-2025 08:36-0400 Heart rate90 /minBenjamin Ball DO Work Phone: 1(237)[facility] [place], [place] 7702310-15-2025 08:36-0400 Respiratory rate12 /minBenjamin Ball DO Work Phone: 1(959)[facility] [place], [place] 7702310-15-2025 08:36-0400 Systolic blood fiaqgcno227 mm[Hg]Jack Ball DO Work Phone: 1(209)[address] [place], [place] 3056410-02-2025 15:52-0400 Body bqpvpe928 cmGregory Diehl DPM Work Phone: [facility] CenterBawybkvugb06-00-4496 15:52-0400Body mass index (BMI) [Ratio]27.09 kg/w9Uqwzwisf Brown DPM Work Phone: [facility] CenterMapkwimupq14-92-5886 15:52-0400Body evbhsq60.71 kgNicholmarvel Brown DPM Work Phone: [facility] CenterLjhfjrsqia97-21-2557 15:52-0400Respiratory rate18 /minNicholas Brown DPM Work Phone: [facility] CenterOovevkehwe16-50-0614 08:32-0400Body mass index (BMI) [Ratio]26.25 kg/m2Bryn Guy ENGLISH COMPOSITION INSTRUCTOR.CREDIT COLLECTIONS REP Work Phone: [facility]09-11-2025 08:32-0400Body jeqcsf94.25 kgBryn Guy ENGLISH COMPOSITION INSTRUCTOR.CREDIT COLLECTIONS REP Work Phone: [phone]09-11-2025 08:32-0400Diastolic blood ssvwtvep77 mm[Hg]Shyanne Guy ENGLISH COMPOSITION INSTRUCTOR.CREDIT COLLECTIONS REP Work Phone: [phone] [address]-11-2025 08:32-0400Heart rate81 /min Shyanne Guy ENGLISH COMPOSITION INSTRUCTOR.CREDIT COLLECTIONS REP Work Phone: [phone]09-11-2025 08:32-0400Systolic blood crsnuqgs426 mm[Hg]Shyanne Guy ENGLISH COMPOSITION INSTRUCTOR.CREDIT COLLECTIONS REP Work Phone: [facility]09-02-2025 14:17-0400Body ofrwqf568 cm Gregory Brown DPM Work Phone: [facility] CenterKctwvopdaz29-23-7617 14:17-0400Body mass index (BMI) [Ratio]27.09 kg/q4Qivhiygt Brown DPM Work Phone: [facility] CenterAvzszfazqi57-15-7939 14:17-0400Body vqurci35.71 kgNicholas Brown DPM Work Phone: [place] [address]Kvaxtziqtl46-70-5791 14:17-0400Respiratory rate18 /minNicholas Brown DPM Work Phone: [facility] CenterOelgheqfaw91-99-1003 10:35-0400Body cm Gregory Brown DPM Work Phone: [facility] CenterOsyppryvxe60-38-4211 10:35-0400Body mass index (BMI) [Ratio]27.09 kg/m5Tijgsvcx Brown DPM Work Phone: [place] [address]Xojtskfcoq25-51-7351 10:35-0400Body lcxevf06.71 kgGregoyr Diehl DPM Work Phone: [facility] CenterQoebnbmhcl13-68-6773 10:35-0400Respiratory rate18 /minGregory Diehl DPM Work Phone: [facility] CenterPigrrtnjas07-40-7496 09:16-0400Body nljfis630 cm Gregory Diehl DPM Work Phone: [facility] CenterTrlgfjxwdz26-02-8641 09:16-0400Body mass index (BMI) [Ratio]27.09 kg/k8ZwgatiwhGregory Diehl DPM Work Phone: [facility] CenterCdugyhkybv57-94-4554 09:16-0400Body yfzqfs91.71 kgGregory Diehl DPM Work Phone: [facility] CenterLswaowutwj34-07-7583 09:16-0400Respiratory rate16 /minGregory Diehl DPM Work Phone: [facility] CenterIiolsvqhnu11-24-3870 08:55-0400Body .96 cmBenjamin Ball DO Work Phone: [phone]07-30-2025 08:55-0400 Body mass index (BMI) [Ratio]26.9 kg/u9Quirqlxu Ball DO Work Phone: [phone]07-30-2025 08:55-0400 Body avqmxi45.36 kgBenjamin Ball DO Work Phone: [phone]07-30-2025 08:55-0400 Diastolic blood wzqthcma21 mm[Hg]Jack Ball DO Work Phone: [phone]07-30-2025 08:55-0400 Heart rate85 /minBenjamin Ball DO Work Phone: 1(312)517-[address] [place], [place] 7702307-30-2025 08:55-0400 Respiratory rate12 /minBenjamin Ball DO Work Phone: [phone]07-30-2025 08:55-0400 Systolic blood kmsiknob079 mm[Hg]Jack Ball DO Work Phone: [phone])[address] [place], [place] 3056407-22-2025 08:19-0400 Body zkcytw422.96 cmBenjamin Ball DO Work Phone: [phone])[address] [place], [place] 3056407-22-2025 08:19-0400 Body mass index (BMI) [Ratio]27.3 kg/w7Mqvvbxnd Ball DO Work Phone: 1(419)[address] [place], [place] 3056407-22-2025 08:19-0400 Body fvavsx26.61 kgBenjamin Ball DO Work Phone: 1419)[address] [place], [place] 3056407-22-2025 08:19-0400 Diastolic blood cncvkbji66 mm[Hg]Jack Ball DO Work Phone: [phone])[address] [place], [place] 3056407-22-2025 08:19-0400 Heart rate78 /minBenjamin Ball DO Work Phone: 1(419)[address] [place], [place] 3056407-22-2025 08:19-0400 Respiratory rate16 /minBenjamin Ball DO Work Phone: 1(419)[address] [place], [place] 3056407-22-2025 08:19-0400 SaO2% (BldA) [Mass fraction]95 %Jack Ball DO Work Phone: 1419)[address] [place], [place] 3056407-22-2025 08:19-0400 Systolic blood hecvoeky198 mm[Hg]Jack Ball DO Work Phone: 1(419)[address] [place], [place] 3056406-13-2025 08:33-0400 Body armfjr568.5 cmBenjamin Ball DO Work Phone: 1(419)[address] [place], [place] 3056406-13-2025 08:33-0400 Body mass index (BMI) [Ratio]26.9 kg/j3Ikcclmhh Ball DO Work Phone: 1419)[address] [place], [place] 3056406-13-2025 08:33-0400 Body lunatl22.74 kgBenjamin Ball DO Work Phone: 1419)[address] [place], [place] 3056406-13-2025 08:33-0400 Diastolic blood xwitwagg71 mm[Hg]Jack Ball DO Work Phone: [facility]06-13-2025 08:33-0400 Heart rate94 /minBenjamin Ball DO Work Phone: [facility]06-13-2025 08:33-0400 Respiratory rate12 /minBenjamin Ball DO Work Phone: [facility]06-13-2025 08:33-0400 Systolic blood rmopavkp993 mm[Hg]Jack Ball DO Work Phone: [facility]04-24-2025 14:55-0400 Body cmShereemarvel Brown DPM Work Phone: [facility] CenterKfnrsttyjb64-31-3345 14:55-0400Body mass index (BMI) [Ratio]27.09 kg/p4Bsqwidkx Brown DPM Work Phone: [facility] CenterRyzdviuniu99-08-5085 14:55-0400Body rawmyd64.71 kgNicholas Brown DPM Work Phone: [facility] CenterDunzceaoqi40-16-9156 14:55-0400Respiratory rate16 /minNicholmarvel Brown DPM Work Phone: [facility] CenterOtihskrxej25-81-3440 08:35-0500Body cm Gregory Diehl DPM Work Phone: [facility] CenterKriexhbbej25-01-0185 08:35-0500Body mass index (BMI) [Ratio]27.09 kg/o8Wvlqnzvo Brown DPM Work Phone: [facility] CenterEztcwrhpur95-66-0575 08:35-0500Body whffok42.71 kgNicholas Brown DPM Work Phone: [facility] CenterByafawxcpm25-62-5050 08:35-0500Respiratory rate18 /minNicholas Brown DPM Work Phone: [facility] CenterMrxvcfedbc80-69-2662 08:37-0500Body voetrd687 cm Gregory Diehl DPM Work Phone: [facility] CenterZruzdtljzx33-76-8573 08:37-0500Body mass index (BMI) [Ratio]27.09 kg/g4TnedikcxGregory Diehl DPM Work Phone: [facility] CenterTedaeqixmd68-19-2147 08:37-0500Body hadnib83.71 kgGregory Diehl DPM Work Phone: [facility] CenterVctbwhmyqa73-43-9927 08:37-0500Respiratory rate18 /minGregory Diehl DPM Work Phone: [facility] CenterMcevsuzotq36-41-0400 08:16-0500Body mass index (BMI) [Ratio]27.22 kg/e1AujtgLeslye Cline UTILITY MANAGER Work Phone: [facility]OC[facility] HealthLmfojgderx72-89-8007 08:16-0500Body qgsgty43.16 kgLeslye Cline UTILITY MANAGER Work Phone: [facility] CenterDywcmodwgn75-92-4446 08:16-0500Diastolic blood waprfzvf34 mm[Hg]Leslye Cline UTILITY MANAGER Work Phone: [facility] CenterLrctwdlnia67-53-7034 08:16-0500Heart rate97 /min Leslye Cline UTILITY MANAGER Work Phone: noCarondelet HealthBhmqmcdtee94-71-2444 08:16-5566RmW7% (BldA) [Mass fraction]97 %Leslye Cline UTILITY MANAGER Work Phone: [facility] CenterFamsqrythk63-38-7318 08:16-0500Systolic blood esehfmzf866 mm[Hg]Leslye Cline UTILITY MANAGER Work Phone: [facility] CenterFpmcgrbdrs70-79-1103 14:09-0400Body etbgsz166.5 cmDO Jack Ball Work Phone: [facility]10-14-2024 14:09-0400 Body mass index (BMI) [Ratio]27.3 kg/m2DO Jack Ball Work Phone: [facility]10-14-2024 14:09-0400 Body glnrca71.05 kgDO Jack Ball Work Phone: [phone]10-14-2024 14:09-0400 Diastolic blood eqptzqie78 mm[Hg]DO Jack Ball Work Phone: 1(825)[address]10-14-2024 14:09-0400 Heart rate83 /minDO Jack Ball Work Phone: [address] [place], [place] 3056410-14-2024 14:09-0400 Respiratory rate12 /minDO Jack Ball Work Phone: [phone])[address]10-14-2024 14:09-0400 Systolic blood yyexeusi115 mm[Hg]DO Jack Ball Work Phone: 1(103)[address] [place], [place] 3056409-18-2024 16:00-0400 Diastolic blood ajaemtnl16 mm[Hg]DO Jack Ball Work Phone: 1(584)[address] [place], [place] 3056409-18-2024 16:00-0400 Heart rate79 /minDO Jack Ball Work Phone: 1(294)[address] [place], [place] 3056409-18-2024 16:00-0400 Respiratory rate16 /minDO Jack Ball Work Phone: 1(453)[address] [place], [place] 3056409-18-2024 16:00-0400 SaO2% (BldA) [Mass fraction]93 %DO Jack Ball Work Phone: 1(351)[address] [place], [place] 3056409-18-2024 16:00-0400 Systolic blood lxgxthha23 mm[Hg]DO Jack Ball Work Phone: 1(047)[address] [place], [place] 3056409-18-2024 11:13-0400 Body lmykin536.5 cmDO Jack Ball Work Phone: 1(469)[address] [place], [place] 3056409-18-2024 11:13-0400 Body xodebuiddtk91.5 [degF]DO Jack Ball Work Phone: 1(755)[address] [place], [place] 3056409-18-2024 11:13-0400 Body pvhuak34 kgDO Jack Ball Work Phone: 1(320)[address] [place], [place] 3056409-17-2024 15:18-0400 Body mass index (BMI) [Ratio]23.75 kg/n6KoqoyoSneha Ann UTILITY MANAGER Work Phone: [facility] CenterPmfhnfysvv96-71-5829 15:18-0400Body kvfgzy49.92 kgSneha Ann UTILITY MANAGER Work Phone: [facility] CenterRlnpxxjoic61-94-5675 15:18-0400Diastolic blood mm[Hg]Sneha Ann UTILITY MANAGER Work Phone: [facility] CenterJywmafybft16-60-6357 15:18-0400Heart rate70 /min Sneha Ann UTILITY MANAGER Work Phone: [facility] CenterTvxascrqsv45-55-0808 15:18-0400Systolic blood wumqtfry090 mm[Hg]Sneha Ann UTILITY MANAGER Work Phone: [facility] CenterEzffgrgbfn85-44-2133 13:22-0400Diastolic blood cywcctbl82 mm[Hg]DO Jack Ball Work Phone: [facility]09-04-2024 13:22-0400 Heart rate82 /minDO Jack Ball Work Phone: [phone]09-04-2024 13:22-0400 Respiratory rate18 /minDO Jack Ball Work Phone: [facility]09-04-2024 13:22-0400 SaO2% (BldA) [Mass fraction]94 %DO Jack Ball Work Phone: [facility]09-04-2024 13:22-0400 Systolic blood mm[Hg]DO Jack Ball Work Phone: [facility]06-26-2024 15:42-0400 Body xnzopm942.42 cmDO Jack Ball Work Phone: [facility]06-26-2024 15:42-0400 Body mass index (BMI) [Ratio]28.6 kg/m2DO Jack Ball Work Phone: [facility]06-26-2024 15:42-0400 Body yhirbi72.59 kgDO Jack Ball Work Phone: [facility]06-26-2024 15:42-0400 Diastolic blood mm[Hg]DO Jack Ball Work Phone: [facility]06-26-2024 15:42-0400 Heart lehs721 /minDO Jack Ball Work Phone: [facility]06-26-2024 15:42-0400 Respiratory rate12 /minDO Jack Ball Work Phone: [facility]06-26-2024 15:42-0400 Systolic blood ltygrxmp277 mm[Hg]DO Jack Ball Work Phone: [facility]12-20-2023 15:30-0500 Body eepkmg678.42 cmBenjamin Ball Other [facility] [employer] Other 12-20-2023 15:30-0500Body mass index (BMI) [Ratio]28.6 kg/q1Ludzllju Ball Other [facility] Other 12-20-2023 15:30-0500Body zozoiu50.34 kgBenjamin Ball Other [employer] Other 12-20-2023 15:30-0500Diastolic blood ycnvtlaw60 mm[Hg] Jack Ball Other [facility] [employer] Other 12-20-2023 15:30-0500Respiratory rate12 /minBenjamin Ball Other [facility] [employer] Other 12-20-2023 15:30-0500Systolic blood iicyjowo848 mm[Hg] Jack Ball Other [facility] [employer] Other 12-15-2023 10:45-0500Body qwoeoy392.42 cmBenjamin Ball Other [facility] [employer] Other 12-15-2023 10:45-0500Body mass index (BMI) [Ratio]28.6 kg/y6Eucqjxor Ball Other [facility] Other 12-15-2023 10:45-0500Body .34 kgBenjamin Ball Other [facility] Other 12-15-2023 10:45-0500Diastolic blood cqsvheby24 mm[Hg] Jack Ball Other [facility] Other 12-15-2023 10:45-0500Respiratory rate12 /minBenjamin Ball Other [employer] Other 12-15-2023 10:45-0500Systolic blood dtzvduxh216 mm[Hg] Jack Ball Other [facility] Other 09-20-2023 13:30-0400Body .42 cmBenjamin Ball Other [facility] Other 09-20-2023 13:30-0400Body mass index (BMI) [Ratio] 27.94 kg/h1Xnhldqlb Ball Other [facility] Other 09-20-2023 13:30-0400Body .07 kgBenjamin Ball Other [facility] Other 09-20-2023 13:30-0400Diastolic blood ckysuteh87 mm[Hg] Jack Ball Other [facility] Other 09-20-2023 13:30-0400Respiratory rate12 /minBenjamin Ball Other [employer] Other 09-20-2023 13:30-0400Systolic blood usvmeqjy448 mm[Hg] Jack Ball Other [employer] [employer] Other 08-15-2023 08:30-0400Body hwijoh642.42 cmBenjamin Ball Other [facility] [employer] Other 08-15-2023 08:30-0400Body mass index (BMI) [Ratio] 27.39 kg/c9Kmpzhuev Ball Other [facility] Other 08-15-2023 08:30-0400Body ozbtac96.17 kgBenjamin Ball Other [employer] [employer] Other 08-15-2023 08:30-0400Diastolic blood ozokpgvi44 mm[Hg] Jack Ball Other [employer] Other 08-15-2023 08:30-0400Respiratory rate12 /minBenjamin Ball Other [facility] Other 08-15-2023 08:30-0400Systolic blood nrvflrul423 mm[Hg] Jack Ball Other [facility] Other 07-07-2023 09:30-0400Body yrdizo460.42 cmBenjamin Ball Other [facility] Other 07-07-2023 09:30-0400Body mass index (BMI) [Ratio] 28.55 kg/n1Qwptqcdh Ball Other [facility] Other 07-07-2023 09:30-0400Body .16 kgBenjamin Ball Other [facility] Other 07-07-2023 09:30-0400Diastolic blood pzrpaiql31 mm[Hg] Jack Ball Other [facility] Other 07-07-2023 09:30-0400Respiratory rate12 /minBenjamin Ball Other [facility] Other 07-07-2023 09:30-0400Systolic blood aihvdihn295 mm[Hg] Jack Ball Other [facility] Other 06-07-2023 08:45-0400Body orkfly227.42 cmBenjamin Ball Other [facility] Other 06-07-2023 08:45-0400Body mass index (BMI) [Ratio] 27.39 kg/f4Kwekvpjr Ball Other [facility] Other 06-07-2023 08:45-0400Body bhaugh64.17 kgBenjamin Ball Other [facility] Other 06-07-2023 08:45-0400Diastolic blood pinuwnnq32 mm[Hg] Jack Ball Other [facility] Other 06-07-2023 08:45-0400Respiratory rate12 /minBenjamin Ball Other [facility] Other 06-07-2023 08:45-0400Systolic blood nmfoyihj909 mm[Hg] Jack Ball Other [facility] Other 05-30-2023 14:30-0400Body msyauw251.42 cmBenmayte Ball Other [facility] Other 05-30-2023 14:30-0400Body mass index (BMI) [Ratio] 27.91 kg/g8Snshjkzd Ball [facility] Other 05-30-2023 14:30-0400Body jmrxoh48.98 kgBenmayte Ball Other [facility] Other 05-30-2023 14:30-0400Diastolic blood mm[Hg] Jack Ball [facility] Other 05-30-2023 14:30-0400Respiratory rate12 /minBenmayte Ball Other [facility] Other 05-30-2023 14:30-0400Systolic blood bftpbawr673 mm[Hg] Jack Ball [facility] Other 04-19-2023 08:23-0400Diastolic blood teojnngt28 mm[Hg] [facility] 04-19-2023 08:23-0400Systolic blood oiklmeun885 mm[Hg] [facility] 01-03-2023 11:15-0500Diastolic blood xcicnado15 mm[Hg] Vashti Ly DO Work Phone: [facility]01-03-2023 11:15-0500Heart rate72 /min Vashti Ly DO Work Phone: [facility]01-03-2023 11:15-0500Respiratory rate 14 /minCatherine Ly DO Work Phone: [facility]01-03-2023 11:15-0328RoX5% (BldA) [Mass fraction]96 %Vashti Ly DO Work Phone: [facility]01-03-2023 11:15-0500Systolic blood ilupyvhs387 mm[Hg]Vashti Ly DO Work Phone: [facility]01-03-2023 10:10-0500Body karolw488.5 cmCatherine Ly DO Work Phone: [facility]01-03-2023 10:10-0500Body mass index (BMI) [Ratio]26.25 kg/u1Ownyecwoz Ly DO Work Phone: [facility]01-03-2023 10:10-0500Body .25 kgCatherine Ly DO Work Phone: [facility]10-24-2022 10:38-0400Body nijrce30.16 kgBryn Guy ENGLISH COMPOSITION INSTRUCTOR.CREDIT COLLECTIONS REP Work Phone: [facility]10-24-2022 10:38-0400Diastolic blood fmcuygco02 mm[Hg]Shyanne Guy ENGLISH COMPOSITION INSTRUCTOR.CREDIT COLLECTIONS REP Work Phone: [facility]10-24-2022 10:38-0400Heart rate71 /min Shyanne Guy ENGLISH COMPOSITION INSTRUCTOR.CREDIT COLLECTIONS REP Work Phone: [phone]10-24-2022 10:38-0400Systolic blood penntsky732 mm[Hg]Shyanne Guy ENGLISH COMPOSITION INSTRUCTOR.CREDIT COLLECTIONS REP Work Phone: [facility]10-21-2022 09:20-0400Body jzyjkc922.42 cmDale Luther Other [facility] Other 10-21-2022 09:20-0400Body mass index (BMI) [Ratio]27.7 kg/m2Dale Luther Other [facility] Other 10-21-2022 09:20-0400Body .26 kgDale Luther Other [facility] Other 08-09-2022 10:00-0400Body ulgrlb933.42 cmDale Luther Other [facility] Other 08-09-2022 10:00-0400Body mass index (BMI) [Ratio] 27.57 kg/m2Dale Luther Other [facility] Other 08-09-2022 10:00-0400Body .8 kgDale Luther Other [facility] Other 06-27-2022 15:15-0400Body cugxzy561.42 cmCameron Ditty Other [facility] Other 06-27-2022 15:15-0400Body mass index (BMI) [Ratio] 27.57 kg/b0Fpjnmjo Ditty Other [facility] Other 06-27-2022 15:15-0400Body .8 kgCameron Ditty Other [facility] Other 03-10-2022 16:30-0500Body prrcxi381.42 cmCameron Ditty Other [facility] Other 03-10-2022 16:30-0500Body mass index (BMI) [Ratio] 29.55 kg/u7Uoaelru Ditty Other [facility] Other 03-10-2022 16:30-0500Body okjeun941.61 kgCameron Ditty Other [facility] Other 03-10-2022 16:30-0500Diastolic blood paucfwdf79 mm[Hg] Alvino Ditty Other [facility] Other 03-10-2022 16:30-0500Systolic blood jamssxjs830 mm[Hg] Alvino Ditty Other [facility] Other 12-21-2021 10:30-0500Body qisqgf955.42 cmCameron Ditty Other [facility] Other 12-21-2021 10:30-0500Body mass index (BMI) [Ratio] 30.21 kg/q5Wkgvvrs Ditty Other [facility] Other 12-21-2021 10:30-0500Body pduzog417.87 kgCameron Ditty Other [facility] Other 11-11-2021 14:45-0500Body uvvxwc450.42 cmCameron Ditty Other [facility] Other 11-11-2021 14:45-0500Body mass index (BMI) [Ratio] 29.95 kg/c4Tnkitcu Ditty Other [facility] Other 11-11-2021 14:45-0500Body .97 kgCameron Ditty Other [facility] Other 11-11-2021 14:45-0500Diastolic blood bwoihtjx17 mm[Hg] Alvino Ditty Other [facility] Other 11-11-2021 14:45-0500Systolic blood knanatif292 mm[Hg] Alvino Rudolph Other [facility] Other 03-[birth year]-1976 23:00-0500>na<[facility]rid[facility] Meghanept. of Dermatology Encounters Encounter DateEncounter TypeCare ProviderFacilityStart: 01-18-2025 End: 25-37-5433Qvzbrs outpatient visit 15 minutesGregory Diehl DPM Work Phone: KILLIAN Bragg Rob PodiatryComment on above:Other specified disorders of synovium, right ankle and foot (Primary Dx); Left Achilles tendinitis; Posterior tibial tendonitis of right leg; Contracture of left ankle; Contracture of right ankleStart: 01-18-2025 End: 08-03-8226lbcuncdcbhRHRWLAWN A BROWNNot AvailableStart: 01-18-2025 End: 92-44-1083Rphtrt Sammy Diehl DPM Work Phone: noMS Bragg Rob PodiatryStart: 01-18-2025 End: 19-45-1235Rvdkjk Sammy Diehl DPM Work Phone: noMS Bragg Rivas PodiatryStart: 01-06-2025 End: 08-57-8649ddlxjtxstnUryzwdu Kelbley PTANOMS Raymond Physical TherapyComment on above:Left Achilles tendinitis (Primary Dx)Start: 01-06-2025 End: 32-80-6639Zoxhsu flowsheetMelissa Kelbley [facility] Start: 01-06-2025 End: 31-33-6792Gcenpd flowsheetMelissa Kelbley [facility] Start: 01-06-2025 End: 99-04-1084fpdpngbtjjGcfazfkv Ball DO Work Phone: [phone]-[facility] Health CardiologyStart: 01-06-2025 End: 27-56-9666Bzqajqk encounter procedureGekyara Agarwal MD-[facility] Work Phone: Start: 01-04-2025 End: 18-92-2102Thpukn outpatient visit 15 John Diehl DPM Work Phone: KILLIAN Rivas PodiatryComment on above:Other specified disorders of synovium, right ankle and foot (Primary Dx); Achilles tendon tear, left, initial encounter; Left Achilles tendinitis; Posterior tibial tendonitis of right leg; Contracture of left ankle; Contracture of right ankleStart: 01-04-2025 End: 52-57-3569cnqyxhbngoIOJFRVVV A BROWNNot AvailableStart: 01-04-2025 End: 02-43-3297Envbfv flowsheetGregory Diehl DPM Work Phone: noMS Yemi Rivas PodiatryStart: 01-04-2025 End: 28-45-9539Xjjsdp flowsFina Diehl DPM Work Phone: noMS Yemi Rivas PodiatryStart: 12-29-2024 End: 93-18-5697fnlplstocgZkmkdttk Brink PTANOMS Raymond Physical TherapyComment on above:Left Achilles tendinitis (Primary Dx)Start: 12-29-2024 End: 31-72-5648Vifsng flowsheetMarshall Brink [facility] Start: 12-29-2024 End: 99-72-7528Zqmgyx flowsheetMarshall Brink [facility] Start: 12-29-2024 End: 31-02-9306Oblcuti encounter Maile Diehl DPM-MRI [address] Closed Work Phone: Start: 12-29-2024 End: 57-33-9006jrotbdznslNlrtgzwm Ball DO Work Phone: -MRI [address] ClosedStart: 12-23-2024 End: 47-89-3673phcfrjtfdmKtzequte Ball DO Work Phone: [facility] Work Phone: Start: 12-23-2024 End: 04-21-1576Bavhpcm encounter procedureJack Ortega [facility] Work Phone: Start: 12-23-2024 End: 13-34-0154Xzjqqbi encounter statusJack Ortega [facility] Systemtart: 12-22-2024 End: 13-36-9031eehskszoovSjutbgwk Brink PTANOMS Raymond Physical TherapyComment on above:Left Achilles tendinitis (Primary Dx)Start: 12-22-2024 End: 29-34-5613Qehqfe flowsheetMarshall Brink [facility] Start: 12-22-2024 End: 28-53-7674Gvrkrp flowsheetMarshall Brink [facility] Start: 12-15-2024 End: 67-02-1132pupghttyagLqhhwcbi Brink PTANOMS Raymond Physical TherapyComment on above:Left Achilles tendinitis (Primary Dx)Start: 12-15-2024 End: 44-84-3081Bjvhih flowsheetMarshall Brink PTANOM[facility] Start: 12-15-2024 End: 66-31-6714Owuwqf flowsheetMarshall Brink PTANOMS [facility] Start: 12-10-2024 End: 56-02-3403Vsmtbt outpatient visit 15 minutesGregory Diehl DPM Work Phone: noms CI PODIATRYComment on above:Achilles tendon tear, left, initial encounter (Primary Dx); Left Achilles tendinitis; Contracture of left ankle; Other specified disorders of synovium, right ankle and foot; Posterior tibial tendonitis of right legStart: 12-10-2024 End: 29-37-0401pednqhnuktKDDROZHU A BROWNNot AvailableStart: 12-10-2024 End: 85-03-2587Yhsdru Sammy Diehl DPM Work Phone: noMS CI PODIATRYStart: 12-10-2024 End: 46-22-1206Viimrl Sammy Diehl DPM Work Phone: noms CI PODIATRYStart: 12-08-2024 End: 72-10-8066cpauockcgkXddrebhz Brink PTANOMS [facility] Physical TherapyComment on above:Left Achilles tendinitis (Primary Dx)Start: 12-08-2024 End: 88-18-2214Vqaofe flowsheetMarshall Brink PTAN[facility] Start: 12-08-2024 End: 98-95-5202Ttdzaa flowsheetMarshall Brink PTAN[facility] Start: 12-01-2024 End: 34-56-5818aghnqlqbbxLxxaissf Brink PTANOMS [facility] TherapyComment on above:Left Achilles tendinitis (Primary Dx)Start: 12-01-2024 End: 83-33-9777Rrkkxh flowsheetMarshall Brink PT[facility] Start: 12-01-2024 End: 54-31-4354Xiblfh flowsheetMarshall Brink PTAN[facility] Start: 11-24-2024 End: 53-49-9620gvmtbhelvnDarlscheo Pittman PTNOMS [facility] Comment on above:Left Achilles tendinitisStart: 11-24-2024 End: 76-68-3981Xfbvnh flowsheetSammantha Pittman PTNOMS [facility] Start: 11-24-2024 End: 78-77-6694Eqzoiv flowsheetSammantha Pittman PTNOMS [facility] Start: 11-19-2024 End: 50-66-6810Ifnzodt encounter procedureShyanne Rodríguez APRN.CREDIT COLLECTIONS REP Work Phone: GastroenterologyComment on above:Gastroesophageal reflux disease without esophagitis (Primary Dx); Irritable bowel syndrome with constipationStart: 11-19-2024 End: 13-47-4542ibxvhiliddAAFV M DESANTISFacility:[facility] Hospitaltart: 11-10-2024 End: 53-71-7779cnajxvckstESZWRUYX A BROWNNot AvailableStart: 11-10-2024 End: 34-64-8310Dqvruz Sammy Diehl DPM Work Phone: NOMS Yemi Rivas PodiatryStart: 11-10-2024 End: 62-82-3549Knaqcq flowsheetNicholas A Brown DPM Work Phone: KILLIAN Rivas PodiatryStart: 11-10-2024 End: 46-94-9646Unzojc outpatient visit 15 minutesNicholas A Brown DPM Work Phone: noMS Yemi Rivas PodiatryComment on above:Left Achilles tendinitis (Primary Dx); Contracture of left ankle; Other specified disorders of synovium, right ankle and foot; Posterior tibial tendonitis of right legStart: 10-23-2024 End: 13-69-1046[place]ab[place] flowsheetNicholas A Brown DPM Work Phone: KILLIAN Rivas PodiatryStart: 10-23-2024 End: 76-96-6211Ynohzc flowsheetNicholas A Brown DPM Work Phone: KILLIAN Rivas PodiatryStart: 10-23-2024 End: 23-84-2432Razhgb outpatient visit 15 minutesNicholas A Brown DPM Work Phone: noMS Yemi Rivas PodiatryComment on above:Other specified disorders of synovium, right ankle and foot (Primary Dx); Posterior tibial tendonitis of right leg; Left Achilles tendinitis; Contracture of left ankleStart: 10-23-2024 End: 27-50-8068uycksfnbfuIBZSQPPL A FAZALNot AvailableStart: 10-16-2024 End: 82-27-8777Jkvnyc flowsheetNicholas A Brown DPM Work Phone: noMS Yemi Rivas PodiatryStart: 10-16-2024 End: 70-72-5185Ikgwag flowsheetNicholas A Brown DPM Work Phone: KILLIAN Rivas PodiatryStart: 10-16-2024 End: 94-24-1604wkjsmxissdGTPYJDXT A BROWNNot AvailableStart: 10-16-2024 End: 00-10-2526Foviru outpatient visit 15 minutesNicholas A Brown DPM Work Phone: NOEE Yemi Rivas PodiatryComment on above:Other specified disorders of synovium, right ankle and foot (Primary Dx); Posterior tibial tendonitis of right leg; Contracture of left ankle; Left Achilles tendinitisStart: 10-07-2024 End: 38-61-3800xykukcghyeIdpyznpa Ball DO Work Phone: [facility] Work Phone: Start: 10-07-2024 End: 98-28-8672Osxalvk encounter procedureBenjamin Ball DO-[facility] Work Phone: Start: 09-29-2024 End: 78-82-6221axjiwclmyfFuahhawc Ball DO Work Phone: [facility] Work Phone: Start: 09-29-2024 End: 55-32-9424Ruomqon encounter procedureSmarvin Cline XREG-PUJ-Y-[facility] Niranjan Work Phone: Start: 09-23-2024 End: 95-96-6578yokmfenngxDetprtsk Ball DO Work Phone: [facility] Work Phone: Start: 09-23-2024 End: 79-17-3120Ckmfkqc encounter procedureGita Valentin ENGLISH COMPOSITION INSTRUCTOR CREDIT COLLECTIONS REP-[facility] Work Phone: Start: 08-21-2024 End: 87-55-5801Fcljcok encounter procedureBenjamin Ball DO-[facility] Work Phone: Start: 07-02-2024 End: 10-27-8527Ssklel outpatient visit 15 minutesGregory Diehl DPM Work Phone: noms PODIATRYComment on above:Other specified disorders of synovium, right ankle and foot (Primary Dx); Posterior tibial tendonitis of right leg; Contracture of right ankleStart: 07-02-2024 End: 73-22-0853gjedzlqmgyAJEIFUSI A BROWNNot AvailableStart: 07-02-2024 End: 32-71-0193Zvgqos flowsheetNicholas A Brown DPM Work Phone: noms CI PODIATRYStart: 07-02-2024 End: 46-87-7556Gyebus flowsheetNicholas A Brown DPM Work Phone: noms CI PODIATRYStart: 06-02-2024 End: 36-12-4896tvocofqjpvWaiuyqq P COOKFacility:EU SanduskyStart: 05-14-2024 End: 25-33-3423Peaafz flowsheetNicholas A Brown DPM Work Phone: noms CI PODIATRYStart: 05-14-2024 End: 80-80-9768Npldjq flowsheetNicholas A Brown DPM Work Phone: noms CI PODIATRYStart: 05-14-2024 End: 11-71-1991Bggxrh outpatient visit 15 minutesNicholas A Brown DPM Work Phone: noms CI PODIATRYComment on above:Other specified disorders of synovium, right ankle and foot (Primary Dx); Posterior tibial tendonitis of right legStart: 05-14-2024 End: 08-03-1217hcjrezzadcMRTANJGE A BROWNNot AvailableStart: 04-30-2024 End: 56-28-8874Fbihqn flowsheetNicholas A Brown DPM Work Phone: noms CI PODIATRYStart: 04-30-2024 End: 23-48-2034Brroak flowsheetNicholas A Brown DPM Work Phone: noms CI PODIATRYStart: 04-30-2024 End: 46-42-7063Waqwry outpatient new 30 minutesNicholas A Brown DPM Work Phone: noms CI PODIATRYComment on above:Posterior tibial tendonitis of right leg (Primary Dx); Other specified disorders of synovium, right ankle and foot; Contracture of right ankleStart: 04-30-2024 End: 94-84-4605kppvemsyckUORAAXXY A BROWNNot AvailableStart: 04-22-2024 End: 55-67-8335ogplipzcwcZsooFlip Tillman MDFacility:[facility] HospitalStart: 04-06-2024 End: 31-98-9854Piilbs outpatient visit 15 minutesSarashi Cline UTILITY MANAGER Work Phone: ana BELLEVUEComment on above:Chronic migraine with aura without status migrainosus, not intractable (CMS/HCC) (Primary Dx); DIANA (obstructive sleep apnea); DDD (degenerative disc disease), cervical; Carpal tunnel syndrome, left; Chronic low back pain, unspecified back pain laterality, unspecified whether sciatica present; Malignant melanoma of left ear (CMS/HCC)Start: 04-06-2024 End: 25-03-2912jbbxgfltwoUBWOE CARROLLNot AvailableStart: 03-28-2024 End: 23-05-7864DaljlaIfnfdc Morris NP Work Phone: ana BELLEVUEComment on above:Chronic migraine without aura, not intractable, without status migrainosus (CMS/HCC)Start: 02-20-2024 End: 61-37-2785flcdewbvufRvazFilp Tillman MDFacility:[facility] HospitalStart: 01-24-2024 End: 91-91-3808tqcjcbjompWndrFlip Tillman MDFacility:[facility] Start: 01-17-2024 End: 19-56-8715aqgzokuizaWtlnFlip Tillman MDFacility:[facility] Start: 01-10-2024 End: 12-10-8208sfgynrownqIkkwFlip Tillman MDFacility:[facility] Start: 01-02-2024 End: 99-20-7178qinlcvsqmyEaphFlip Tillman MDFacility:[facility] HospitalStart: 12-31-2023 End: 67-07-4740axyrvlrxscZUVicky Ortega Work Phone: [facility] Work Phone: Start: 12-31-2023 End: 88-48-2961Dbyxlme encounter procedureDO Jack [place] Work Phone: [facility]-Ultrasound [facility] [place] Work Phone: Start: 12-27-2023 End: 19-97-7541tleaqipwqjDtoexieqFahda Collado MDFacility:[facility] HospitalStart: 12-26-2023 End: 06-72-8408nqmonvjtryGS [facility] Work Phone: [facility] Work Phone: Start: 12-26-2023 End: 01-42-1302Qocplwl encounter procedureDO [facility] Work Phone: [facility]-Electrodiagnostics Work Phone: Start: 12-23-2023 End: 13-89-3842Rtkpljzze for general adult medical examination without abnormal findingsDO [facility] Work Phone: [facility] Daytontart: 12-23-2023 End: 10-19-3839Shvopzi encounter procedureDO [facility] Work Phone: [facility] Work Phone: Start: 22-03-3805Uwfukgv encounter statusDO [facility] Work Phone: [facility] Daytontart: 12-16-2023 End: 18-31-4568coozlmsgtvHpde M Desantis APRN.CREDIT COLLECTIONS REP Work Phone: GastroenterologyComment on above:Irritable bowel syndrome with constipation (Primary Dx); Gastroesophageal reflux disease without esophagitisStart: 12-16-2023 End: 74-67-0300Beohowmgdcok consultation with patientShyanne Rodríguez APRN.CREDIT COLLECTIONS REP Work Phone: GastroenterologyStart: 12-11-2023 End: 24-20-9743brplzlcdrgCqpjFlip Tillman MDFacility:[facility] Start: 12-02-2023 End: 88-59-5648xoozslshsgXjjpFlip Tillman MDFacility:[facility] HospitalStart: 12-02-2023 End: 29-87-5132uhokyajbwnMcotFlip Tillman MDFacility:[facility] Start: 32-12-7365Yxu-patient / Non-visitDO Jack Ortega Work Phone: [facility] Work Phone: Start: 11-27-2023 End: 61-97-5277Xzjtfbkor to same day surgery centerDO Jack Ortega Work Phone: [facility]-Economic Development Manager Work Phone: Start: 11-27-2023 End: 03-64-1495abrpdzjnutGS Jack Ortega Work Phone: [facility] Work Phone: Start: 11-26-2023 End: 65-09-6246Oiqqbx outpatient visit 25 minutesSneha Ann UTILITY MANAGER Work Phone: noms [facility] ROUTEComment on above:Migraine without status migrainosus, not intractable, unspecified migraine type (CMS/HCC) (Primary Dx); DIANA (obstructive sleep apnea); DDD (degenerative disc disease), cervical; Carpal tunnel syndrome, left; Chronic low back pain, unspecified back pain laterality, unspecified whether sciatica present; Malignant melanoma of left ear (CMS/HCC)Start: 11-26-2023 End: 77-14-1989Tlixfo Ranjit Ann UTILITY MANAGER Work Phone: noMS [facility] R[facility]TEStart: 11-26-2023 End: 07-71-0503Djzdzj Ranjit Ann UTILITY MANAGER Work Phone: noms [facility] ROUTEStart: 11-25-2023 End: 29-11-3892betuwhuhhsLJ Jack Ortega Work Phone: [facility] Work Phone: Start: 11-25-2023 End: 55-80-2549Cdwxivn encounter procedureDO Jack Ortega Work Phone: [facility]-Asr-Qoptkxmc Testing Work Phone: Start: 11-13-2023 End: 41-79-9235fznbdwhagsJB Jack Ortega Work Phone: [facility] Work Phone: Start: 11-13-2023 End: 47-15-8051Shknqua encounter procedureDO Jack Ortega Work Phone: [facility] Work Phone: Start: 09-04-2023 End: 16-97-6550Ajtkvjp encounter procedureDO Jack Ortega Work Phone: [facility] Work Phone: Start: 31-72-9163TkqavmCtcqKatia Rodríguez APRN.CREDIT COLLECTIONS REP Work Phone: GastroenterologyComment on above:Refill RequestStart: 03-06-2023 End: 74-00-1840mgwxmofwrmLgdorfxt Ball Other [employer] Other Start: 28-24-7981Eaegetqmt encounterBenjamin BallFPG [facility] ClinicStart: 03-05-2023 End: 84-89-2158gdyeyahguwAcoaskxd Ball Other [employer] Other Start: 41-69-4042Biobqd outpatient visit 15 minutes Jack BallBRYANG [facility] ClinicStart: 66-20-2299Ktykxdres encounterBenjamin BallFPG [facility] ClinicStart: 03-01-2023 End: 30-89-3120rbnwigxljhWirvnnql Ball Other [employer] Other Start: 93-13-8276Obtjtcdkc encounterBenjamin BallFPG [facility] ClinicStart: 02-27-2023 End: 52-75-8164jootqiokikJqgcivbt Ball Other [employer] Other Start: 80-13-3950Nevuci outpatient visit 25 minutes Jack BallFPG [facility] ClinicStart: 02-25-2023 End: 35-86-4250trogtrodbdGvswbjip Ball Other [employer] Other Start: 14-80-0623Wfkssotci encounterBenjamin BallFPG [facility] ClinicStart: 02-22-2023 End: 97-50-2756srdawzdazcMqfpruui Ball Other [employer] Other Start: 07-97-2869Dmwfzd outpatient visit 15 minutes Jack BallFP[facility] ClinicStart: 02-11-2023 End: 72-78-0457oiqaiyjpdjIqtumwmo Ball Other [employer] Other Start: 78-66-9169Cxygumlqk encounterBenjamin BallFPG [facility] ClinicStart: 02-04-2023 End: 45-01-4008topdvzuyqtYccgbspz Ball Other [employer] Other Start: 24-04-2861Puzgch outpatient visit 15 minutes Jack BallFPG [facility] ClinicStart: 12-09-2022 End: 42-02-6888ixczmqzcjwTnmqkmrk Ball Other [employer] Other Start: 48-44-6163Ikuerygcv encounterBenjamin BallFPG [facility] ClinicStart: 11-28-2022 End: 55-83-4003qyzpvsomzzNuzeimvd Ball Other [employer] Other Start: 67-51-5310Nhjukmwhm for general adult medical examination without abnormal findingsBenjamin BallFPG [facility] ClinicStart: 83-34-9769Axpwyrcr preventive med est patient 40-64yrsBenmayte Ortega Medical ClinicStart: 11-16-2022 End: 49-82-3009oyekwahpvsGxhuwnjo Ball Other [employer] Other Start: 44-59-1840Prealnsvf encounterJack Ortega Medical ClinicStart: 10-23-2022 End: 65-84-9175flrapfddroQvacgdzw Ball Other [employer] Other Start: 76-30-7895Vejfyfzbv for other preprocedural examinationBepurvi Ortega Medical ClinicStart: 30-65-3081Qbvwho outpatient visit 25 minutesJack Ortega Medical ClinicStart: 09-24-2022 Orders Vicki Rodríguez APRN.CREDIT COLLECTIONS REP Work Phone: GastroenterologyStart: 09-14-2022 End: 32-74-2283buntnparhkJvahisvs Ball Other [employer] Other Start: 89-67-1318Wrfdsd outpatient visit 15 minutes Jack Ortega Medical ClinicStart: 53-95-1980cqpijwcflmDCU UNKNOWN Facility:9522Start: 61-97-0087Vldenb outpatient visit 15 minutesRaad Cline Dept. of Dermatology Start: 08-76-3841Hhoiur follow up visit related to original pxRaad ClineDept. of Dermatology Start: 08-15-2022 End: 22-14-4263nxzhsjuusqQvbfmxtf Ball Other [employer] Other Start: 37-63-4353Fjnmlc outpatient visit 15 minutes Jack Or[facility]ga [facility] ClinicStart: 66-71-2276abucidskyzNP JACK ORTEGA Facility:Q1Ataro: 08-08-2022 End: 40-52-8478pheqxkblsfEveuucrg Ball Other [facility] [employer] Other Start: 09-11-3926Kesbjjvnz encounterBepurvi Ortega Medical ClinicStart: 08-07-2022 End: 17-54-4894zwweqwtudqHB JACK ORTEGAAda [employer] Other Start: 59-43-1154Jltgfiifn for other preprocedural examinationBenmayte Ortega Medical ClinicStart: 69-05-2213Hyuzem outpatient visit 25 minutesBenmayte Ortega Medical ClinicStart: 07-20-2022 ambulatoryPt States None PCPFacility:[id number]: 25-26-3399Yggjcz outpatient visit 15 minutesBryan CarrollDept. of Dermatology Start: 96-14-1373Ehqrao follow up visit related to original pxBryan CarrollDept. of Dermatology Start: 07-03-3665Uqljfcl PaulDept. of Dermatology Start: 74-59-5355uwrgxxcmmzTwDean Glez Facility:9522Start: 90-12-1602Mkqjsh follow up visit related to original px Kirsty PaulDept. of Dermatology Start: 07-11-2022 End: 24-43-6095jlhldzbavkPS Jack Ortega Work Phone: [facility] Work Phone: Start: 07-11-2022 End: 32-59-4888Dtfkngl encounter procedureDO Jack Ortega Work Phone: [facility] Work Phone: Start: 62-87-4663Flqv LarsonDept. of Dermatology Start: 93-43-6713Kispq CarrollDept. of Dermatology Start: 20-15-6691oyuugwynjjTp. Devin Jorge Facility:9324Start: 75-95-9363nzybcjcycfVX [place] Shawn LINDAOCSFacility:9522Start: 45-83-3716Fikiii OnlyShyanne Rodríguez APRN.CREDIT COLLECTIONS REP Work Phone: GastroenterologyStart: 29-83-2319Pqvr LarsonDept. of Dermatology Start: 89-09-6611nriyzuxqaaCj. Devin Jorge Facility:9324Start: 05-25-2022 End: 62-55-4449kppbccxffdZF Jack Ortega Work Phone: [facility] Work Phone: Start: 05-25-2022 End: 64-46-4638Xjxzcll encounter procedureDO Jack Ortega Work Phone: [facility] Work Phone: Start: 25-56-2043Drvbmasly encounterShyanne Rodríguez APRN.CREDIT COLLECTIONS REP Work Phone: GastroenterologyComment on above:ResultsStart: 13-24-4401Snfetibuw encounterCatherine Ly DO Work Phone: GastroenterologyComment on above:Patient Question (Fax MRE orders to [facility])Start: 43-26-8388EcxuojHbmpRik Rodríguez APRN.CREDIT COLLECTIONS REP Work Phone: GastroenterologyComment on above:Refill RequestStart: 03-21-2022 End: 34-16-5431wurfsnqzklWgxb Luther Other [employer] Other start: 37-33-6717Plezoubkf encounterDale Derian [facility] ClinicStart: 48-75-3876Efeutdejn encounterShyanne Rodríguez APRN.CNP Work Phone: GastroenterologyComment on above:ResultsStart: 03-13-2022 End: 37-90-6938Pskgmgjshm hospital visit by physicianCatliam Llamas DO Work Phone: ambulatory SurgeryComment on above:Diarrhea, unspecified type [R19.7]Start: 03-07-2022 End: 54-20-4862wyasdplbnwCDEBYQ DANNERFacility:E6Xjyvj: 65-14-5693Mmtgluuwh encounterCatherdelia Ly DO Work Phone: GastroenterologyComment on above:Appointment (E/C) Start: 02-14-2022 End: 18-02-8230qzyrwqurkcIERCZX DANNERFacility:Q2Exhkm: 36-02-0804LdafujWwsyRik Rodríguez APRN.CREDIT COLLECTIONS REP Work Phone: GastroenterologyComment on above:Refill RequestStart: 01-01-2022 End: 64-12-7727Wxkekss encounter Kamilla Rodríguez APRN.CREDIT COLLECTIONS REP Work Phone: GastroenterologyComment on above:Diarrhea, unspecified type (Primary Dx); Esophageal dysphagia; Irritable bowel syndrome with diarrheaStart: 12-29-2021 End: 82-04-2237shfcqpdgxmIbay Braun Other [employer] Other start: 70-78-3851Vranbc outpatient visit 15 minutes [facility] NeurosurgeryStart: 10-17-2021 End: 20-82-8715hrelhigbmfKdty Braun Other [employer] Other start: 54-41-6611Fvnnfz outpatient visit 15 minutes [facility] NeurosurgeryStart: 10-12-2021 End: 11-94-7759ljhkhcxbjtDtdqhyj Ditty Other [employer] Other Start: 42-42-8603Fpnzxcnse encounterAlvino Greco Referral CoordinatorStart: 10-02-2021 End: 16-09-9862Xrqpobd encounter procedureDO Jack Ortega Work Phone: [facility]Start: 09-04-2021 End: 46-90-0664ztwuqrxhyoHngidtm Ditty Other [employer] Other Start: 66-37-1313Mokresz encounter procedureCameron DittyFPG GastroenterologyStart: 08-25-2021 End: 01-75-4837itbxkvidugTTFV E BRAUNFacility:[facility] HospitalStart: 08-13-2021 End: 99-63-7851wctafjigbnNlzdtju Ditty Other [employer] Other Start: 41-26-1950Fimhuavup encounterCameron DittyFPG GastroenterologyStart: 07-19-2021 End: 52-11-9701cstzpaohgpXDPU E BRAUNFacility:[facility] HospitalStart: 2021 End: 29-92-9564swnfkvetcxIvwyqez Ditty Other [employer] Other Start: 98-05-8249Wbtbbgg encounter procedureCameron DittyFPG GastroenterologyStart: 02-28-2021 End: 78-03-5291cqbwixwacaPlrpjeg Ditty Other [employer] Other Start: 60-86-2656Vhyhlde encounter procedureCameron DittyFPG GastroenterologyStart: 01-19-2021 End: 42-24-1887kuhystwsaoAegrnct Ditty Other [employer] Other Start: 74-97-7523Rmbhbuf encounter procedureCameron DittyFPG Gastroenterology Procedures DateProcedureProcedure DetailPerforming ClinicianStart: 19-67-6652ZYR of left ankleBenjamin Jordan DO Work Phone: Start: 56-43-5526OJ scan of thyroidDO Jack Ortega Work Phone: Start: 38-53-4404KC [facility] AngioDO Jack Ortega Work Phone: Start: 37-31-9743RJ Jack Ortega Work Phone: Start: 47-88-0331G-ray of lumbar spine, four viewsDO Jack Ortega Work Phone: Start: 67-68-5495Pxon micrographic h/n/h/f/g 1st stage 5 blocksBryan CarrollStart: 94-15-4519Tnlo LarsonStart: 50-80-3423Jddjl X-ray of left hipDO Jack Ortega Work Phone: Start: 52-26-2409Qjukgkfzkzo flx dx w/collj spec when pfrmdStolina So ENGLISH COMPOSITION INSTRUCTOR.CREDIT COLLECTIONS REP Work Phone: start: 96-96-7149Rrywa iv surg pathology gross&microscopic examCatherine Ly DO Work Phone: Start: 14-96-7276Odfwpwrzqoodnbkpoaugaoxtpp transoral diagnosticStolina So ENGLISH COMPOSITION INSTRUCTOR.CREDIT COLLECTIONS REP Work Phone: start: 46-04-8529JqbikjjmvfyAipg Guy ENGLISH COMPOSITION INSTRUCTOR.CREDIT COLLECTIONS REP Work Phone: Start: 78-34-9170LDJ of headDO Jack Ortega Work Phone: Plan of Treatment DateCare ActivityDetailAuthorStart: 06-29-7352Frlsrjfqc for malignant neoplasm of colonNOMS HealthcareStart: 65-89-2393CqjygasmxgrIYYPCMNYZICCwzarajyj Clinic Start: 68-20-9251UBWJUHQJRA CANCER SCREENINGCOLORECTAL CANCER SCREENINGBethesda North Hospitaltart: 79-02-8691Ldjqhgqkj for malignant neoplasm of colonBethesda North Hospitaltart: 01-19-2025 End: 50-38-8925nkwecgnbad39/01/2025 2:00 PM EST Treatment [facility] [address] [facility] [address] [place], [id number] Ilsa Pittman PTNOMS [facility] TherapyStart: 01-18-2025 End: 89-92-0252Nfrigvae SupportNOMS Yemi Rivas PodiatryComment on above: Other specified disorders of synovium, right ankle and foot (Primary Dx); Left Achilles tendinitis; Posterior tibial tendonitis of right leg; Contracture of left ankle; Contracture of right ankleStart: 01-06-2025 End: 21-26-3683fjbwgipcyoKQTU [facility] TherapyComment on above:Arrived Start: 01-04-2025 End: 99-55-3294Lefwoyo encounter procedureNOMS Yemi Rivas PodiatryComment on above:Other specified disorders of synovium, right ankle and foot (Primary Dx); Achilles tendon tear, left, initial encounter; Left Achilles tendinitis; Posterior tibial tendonitis of right leg; Contracture of left ankle; Contracture of right ankleStart: 12-29-2024 End: 85-66-1817xuitphmseoLLTV [facility] TherapyComment on above:Arrived Start: 12-22-2024 End: 69-56-2930qqaytzmolj86/14/2025 5:30 PM EDT Treatment [facility] [address] [facility] [address] [place], [id number] Jeaneth Farrar PTANOMS [facility] Physical TherapyStart: 12-15-2024 End: 19-61-1495mntkjqoudjHFLD [facility] TherapyComment on above:Arrived Start: 12-10-2024 End: 63-66-9837Vhqcafd encounter procedureKILLIAN LOPEZ PODIATRYComment on above:Left Achilles tendinitis (Primary Dx); Contracture of left ankle; Other specified disorders of synovium, right ankle and foot; Posterior tibial tendonitis of right legStart: 12-08-2024 End: 60-91-0748feofusprzcNXBW [facility] TherapyComment on above:Left Achilles tendinitis (Primary Dx)Start: 12-01-2024 End: 30-33-4379zvtdbruycdYUWL [facility] TherapyComment on above:Arrived Start: 11-24-2024 End: 86-84-2928kqeebdtxcp25/16/2025 2:30 PM EDT Evaluation [facility] [address] [facility] [address] [place] [address] Ilsa Pittman, PT Left Achilles tendinitisNOMS [facility] Comment on above:Left Achilles tendinitisStart: 45-33-5447HAYON-19 Vaccine ( season)COVID-19 Vaccine ()[facility] HealthcareStart: 42-30-4514Okzglmqwe vaccinationInfluenza Vaccine (#1)[facility] HealthcareStart: 10-23-2024 End: 42-13-0569Ipjtuxq encounter syknxgoik12/15/2025 10:40 AM EDT Office Visit [facility] [address] [place] [id number] Gregory Diehl DPM [address] [facility] [address] [place] [address] Other specified disorders of synovium, right ankle and foot (Primary Dx); Posterior tibial tendonitis of right leg; Left Achilles tendinitis; Contracture of left ankleNOKS San Fernando Rob PodiatryComment on above:Other specified disorders of synovium, right ankle and foot (Primary Dx); Posterior tibial tendonitis of right leg; Left Achilles tendinitis; Contracture of left ankleStart: 09-29-2024 End: 25-18-7970Qvwepca encounter jdyefqyct13/22/2025 8:20 AM EDT Office Visit FABY UREÑA [address] [address] [place] [address] Leslye Cline NP [address] [place] [address] FABY SMITHtart: 07-02-2024 End: 50-45-5376Qamrfbg encounter udykqbers08/24/2025 3:00 PM EDT Office Visit [facility] [address] [facility] 120 [place] [address] Gregory Diehl DPM [address] [address] Other specified disorders of synovium, right ankle and foot (Primary Dx); Posterior tibial tendonitis of right leg; Contracture of right ankleNOMS CI PODIATRYComment on above:Other specified disorders of synovium, right ankle and foot (Primary Dx); Posterior tibial tendonitis of right leg; Contracture of right ankleStart: 06-11-2024 End: 80-57-1794Oijockx encounter cwrrbmbmo68/03/2025 8:50 AM EDT Office Visit [facility] [address] [facility] 120 [place] [address] Gregory Diehl DPM [address] [address] [facility] CI PODIATRYStart: 05-14-2024 End: 62-45-3900Oxpmmgot Xozukeh8305/14/2024 8:50 AM EST Clinical Support [facility] [address] [place] [address] [place] [address] Gregory Diehl, MER [address] [address] Other specified disorders of synovium, right ankle and foot (Primary Dx); Posterior tibial tendonitis of right legNOMS CI PODIATRYComment on above:Other specified disorders of synovium, right ankle and foot (Primary Dx); Posterior tibial tendonitis of right legStart: 04-30-2024 End: 71-92-0315Qaetklf encounter lcqyaodgq12/20/2025 8:40 AM EST Office Visit [facility] [address] [facility] 120 [place] [address] Gregory Diehl, DPM [address] [address] ArrivedNOMS CI PODIATRYComment on above:ArrivedStart: 04-06-2024 End: 69-74-4370Befwmbi encounter jdluapkqz94/27/2025 8:20 AM EST Office Visit FABY UREÑA [address] [place] [address] Leslye Cline NP [address] [place] [address] FABY SMITHtart: 01-20-2024 End: 94-59-7448Fttnffw encounter mdeniusrn09/11/2024 1:40 PM EST Office Visit NOMEllen URE[facility]A [address] [place] [address] Sneha Ann NP [address] [place], [place] [id number] [facility]en [facility] R[facility]TEStart: 11-27-2023 Patient [facility] Work Phone: Start: 11-27-2023 End: 39-15-5100DtbkoanbiKindred Hospital Daytontart: 11-26-2023 End: 45-76-0991Kqolgvp encounter adwbklujo84/17/2024 3:00 PM EDT Office Visit KILLIAN UREÑA [address] [place] [address] Sneha Ann NP [address] [place], [place] [id number] ArrivedKILLIAN UREÑA [facility]OSP[facility] ROUTEComment on above:ArrivedStart: 55-01-1385Gjldz-19 Vaccine ( season)Covid-19 Vaccine ( season)[facility]: 59-44-2748Ykqjb-19 Vaccine ( season)Covid-19 Vaccine ( season)[facility]: 06-96-5564Kmphwzktm vaccinationOak View ClinicStart: 90-32-6805Ntdninm [facility] Work Phone: Start: 70-80-9435Xrtfrtjraa Health ScreeningBehavioral Health ScreeningBethesda North Hospitaltart: 88-35-4202Onign-19 Vaccine ( season)Covid-19 Vaccine ( season)[facility]: 11-09-2022 Influenza vaccinationBethesda North Hospitaltart: 21-79-3508LHPQZCNQSG ASSESSMENT DEPRESSION ASSESSMENTBethesda North Hospitaltart: 01-01-2022 End: 38-62-7231Rznowsepbyjxlz difficile toxin genes [Presence] in Stool by CHON with probe detectionC. DIFFICILE PCR Lab Routine Diarrhea, unspecified type Expected: 01/01/2022 (Approximate), Expires: 03/03/2022[facility] Work Phone: Comment on above:Expected: 01/01/2022 (Approximate), Expires: 03/03/2022tart: 01-01-2022 End: 04-98-0686ZXHKOLB BACTERIAL PANEL BY PCRENTERIC BACTERIAL PANEL BY PCR Lab Routine Diarrhea, unspecified type Expected: 01/01/2022 (Approximate), Expires: 03/03/2022[facility] Work Phone: Comment on above:Expected: 01/01/2022 (Approximate), Expires: 03/03/2022tart: 01-01-2022 End: 66-19-9715Rmpjdvh lamblia+Cryptosporidium sp Ag [Presence] in Stool by ImmunoassayCRYPTOSPORIDIUM AND GIARDIA ANTIGENS BY EIA Microbiology Routine Diarrhea, unspecified type Expected: 01/01/2022, Expires: 03/03/2022[facility] Work Phone: Comment on above:Expected: 01/01/2022, Expires: 03/03/2022tart: 01-01-2022 End: 22-25-3751HRSL ELASTASE, FECALPANC ELASTASE, FECAL Lab Routine Diarrhea, unspecified type Expected: 01/01/2022, Expires: 03/03/2022[facility] Work Phone: Comment on above:Expected: 01/01/2022, Expires: 03/03/2022tart: 14-19-2966Rcrtinweu vaccinationINFLUENZA (#1)[facility] Start: 83-83-3984ZF pre/post mri xrayXR pre/post mri xrayKindred Hospital Daytontart: 10-27-2021 End: 07-92-4029Lyzleyq encounter procedureDeparted ClinicalKing'S Daughters [facility]-MRI Main CampusStart: 48-94-2246AK lumbar spine wo conMR lumbar spine wo [facility]art: 26-76-9482PHFMK-19 VACCINE (4 - Booster for Pfizer series)COVID-19 VACCINE (4 - Booster for Pfizer series) [facility]: 29-93-3358WDGXD-19 VACCINE (4 - Pfizer series)COVID-19 VACCINE (4 - Pfizer series)[facility]: 06-82-7064UKACKMYYSM ASSESSMENTDEPRESSION ASSESSMENTBethesda North Hospitaltart: 00-68-7355CVPCLKPXO (FIT-DNA)COLOGUARD (FIT-DNA)[facility]tart: 92-69-3951Bbbdtwntneu COLONOSCOPYBethesda North Hospitaltart: 08-65-4522KFYESJIHXR CANCER SCREENING COLORECTAL CANCER SCREENINGBethesda North Hospitaltart: 38-26-3231ZI COLONOGRAPHYCT COLONOGRAPHYBethesda North Hospitaltart: 32-67-6180LINWCKLR SCREENDIABETES SCREEN [facility]tart: 26-66-2116Ucehdvde ScreeningDiabetes ScreeningBethesda North Hospitaltart: 09-26-8654FRACR OCCULT BLOODFECAL OCCULT BLOODSt. Francis Hospital Start: 69-62-1942Iqgblemeo for malignant neoplasm of colonBethesda North Hospitaltart: 65-82-8496HFMTWXRKFGDSDZCLLIRCICNEIURzmsoctrp ClinicStart: 69-85-2635Ymkpk panelLipid ScreeningBethesda North Hospitaltart: 45-57-0699EZTCJ SCREENLIPID SCREEN [facility]art: 30-84-8898Xkbsqtfxm B Vaccine (1 of 3 - 19+ 3-dose series)Hepatitis B Vaccine (1 of 3 - 19+ 3-dose series)[facility]: 80-01-3989Oygtagnzr B Vaccines (1 of 3 - 19+ 3-dose series)Hepatitis B Vaccines (1 of 3 - 19+ 3-dose series)[facility] HealthcareStart: 96-32-6983Vsnmu microalbumin profileBethesda North Hospitaltart: 61-06-4042Qlgdecd ScreeningAnxiety Screening [facility]: 67-76-0299Gnnhltipkt ScreeningDepression Screening [facility]: 61-51-1744GGETPMDWU C SCREENINGHEPATITIS C SCREENING [facility]: 64-74-9621Bniommdrd C screeningHepatitis C Screening [facility]tart: 31-26-7221USS SCREENINGHIV SCREENINGSt. Francis Hospital Start: 79-63-7308UUD screeningHIV ScreeningBethesda North Hospitaltart: 05-17-1982 DTaP/Tdap/Td Vaccines (1 - Tdap)DTaP/Tdap/Td Vaccines (1 - Tdap)[facility] Start: 49-23-4029WIL Vaccines (1 of 1 - Standard series)MMR Vaccines (1 of 1 - Standard series)[facility] CenterStart: 26-91-9972SGXRE-19 VACCINE (#1)COVID-19 VACCINE (#1)[facility]: 42-20-1624ZSXKICIUS B (1 of 3 - 3-dose series)HEPATITIS B (1 of 3 - 3-dose series)[facility]tart: 1975 Screening for malignant neoplasm of colonEllis Fischel Cancer Center End: 15-46-9645KDAVVRHDRBK DIAGNOSTICCOLONOSCOPY DIAGNOSTIC Endoscopy Routine Diarrhea, unspecified type 1 Occurrences starting 01/01/2022 until 01/01/2023 [facility] Work Phone: comment on above:1 Occurrences starting 01/01/2022 until 01/01/2023 End: 51-16-3544PGU DIAGNOSTICEGD DIAGNOSTIC Endoscopy Routine Esophageal dysphagia 1 Occurrences starting 01/01/2022 until 3C[facility] Work Phone: comment on above:1 Occurrences starting 01/01/2022 until 01/01/2023MR Ankle - left WO contrastMR ankle left wo IV contrast Imaging Routine Achilles tendon tear, left, initial encounter Ordered:12/10/2024[facility] Work Phone: Comment on above:Ordered: 10/02/2025Patient Education [facility] Work Phone: Patient referralKing[facility] Work Phone: US Heart TransthoracicTogus Va Medical CenterUS Thyroid glandWest[facility] [place] Immunizations Immunization DateImmunizationNotesCare UbqpfxvsFsnljurv08-08-4883wclkszygk, seasonal, injectable, preservative freeBenjamin Ball DO Work Phone: [facility]10-15-2025influenza virus vaccine, unspecified formulationMarshjen Farrar [facility] 16-10-2315wenuaezsn, seasonal, injectable, preservative freeDO Jack Ball Work Phone: [facility]10-14-2024influenza virus vaccine, unspecified formulationGregory Diehl DPM Work Phone: [facility] Cancer CenterMruuqgygjy12-02-4838RFLUF-07 (PFIZER) 12Y and olderDO Jack Ball Work Phone: [facility]09-20-2023influenza, injectable, quadrivalent, preservative freeBenjamin Ball Other [facility]09-20-2023influenza virus vaccine, unspecified formulationSneha Ann NP Work Phone: [facility] Cancer CenterTypwqonowd96-25-8095OICRB-98 mRNA, Comirnaty (Pfizer)DO Jack Ball Work Phone: [facility]11-15-2021influenza virus vaccine, split virus (incl. purified surface antigen)Jack Ball Other [employer] Other [id number]bcgo virus vaccine, unspecified formulationDO Jack Ball Work Phone: [facility]02-04-2021COVID-19 mRNA, Comirnaty (Pfizer)DO Jack Ball Work Phone: [facility]02-03-2021COVID-19 Vaccine Pfizer - Documentation Purposes OnlyBepurvi Ortega Other [facility]01-14-2021COVID-19 mRNA, Rosanneirchi (Pfizer)DO Jack Ortega Work Phone: [facility]01-14-2021COVID-19 Vaccine Moderna - Documentation Purposes OnlyJack Ortega Other [facility]03-08-1976 pneumococcal conjugate vaccine, 7 valentEmma LarsonDept. of Dermatology Payers DatePayer CategoryPayerPolicy [id number]-lhl [id number] [place] [employer] [id number] 1.2.840.943969.1.13.159.2.7.3.62151[id number] 2.0.1.158069.3.579.[id number] 2.0.1.271642.3.579.2.62580-22-3204Ovbfryg4561739 2.840.1.213063.3.579.2.96309-20-0316Ymgvfek0327307 2.16840.1.309110.3.579.2.16341-94-9877Dhqagnw6880321 2..840.1.334681.3.579.2.44445-43-5290Vpqnhsv0129478 2.16.840.1.235183.3.579.2.09240-36-1531Uieuant993992746 2.16.840.1.924957.3.579.2.57365-07-3663Geglkco390715611 2.16.840.1.056538.3.579.2.37814-62-7499Bdlidra374372345 2.16.840.1.414440.3.579.2.61522-83-0397Fjlicog422139649 2.16.840.1.734619.3.579.2.05532-98-6940Ztbalfk896757303 2..840.1.409698.3.579.2.36339-37-2808Vztqfdz575588128 2.840.1.261254.3.579.2.46396-31-7300Ijedhsv381615095 2.840.1.219055.3.579.2.85384-41-5202Cffhuhn284565047 2..840.1.565858.3.579.2.04594-21-9245Fvhulsh802815916 2..840.1.230975.3.579.2.64171-30-0518Bhnvdpr778546330 2.840.1.214295.3.579.2.52837-31-4505Taerhyk840413074 2..840.1.002021.3.579.2.64080-37-6185Lyzjiww385862745 2..840.1.315406.3.579.2.48379-58-8288Weaxeau668491301 2..840.1.918679.3.579.2.18748-02-3641Oaitois686201551 2.840.1.752768.3.579.2.65888-68-5733Wxtqofe509501515 2.16.840.1.128839.3.579.2.91766-79-6104Iknlbeb033354934 2.16.840.1.637623.3.579.2.29526-62-7103Jwsfomw250340751 2.16.840.1.639095.3.579.2.65953-42-5078Aromobu255359521 2.16.840.1.228164.3.579.2.22440-65-9138Wrpmknm373971323 2.16.840.1.192968.3.579.2.37688-84-4796Xyxwzyf88469595 2.16.840.1.181794.3.579.2.720229-80-2103Vzhjvmm97771881 2..840.1.771720.3.579.2.229834-93-0996Cztaffq23563284 2..840.1.259492.3.579.2.902250-72-6331Oysjqjm29466764 2..840.1.551286.3.579.2.942240-07-5244Cfwmlcm59159584 2.16.840.1.735181.3.579.2.754504-12-3006Ctznaig85784488 2.16.840.1.357670.3.579.2.103004-27-3183Koemcfd27282132 2.16.840.1.791462.3.579.2.783508-04-3957Qhaxcmz55984578 2.16.840.1.576801.3.579.2.044099-93-5013Kewovmf03549214 2.16.840.1.428518.3.579.2.196275-64-2572Rqevcna58548605 2.16.840.1.744712.3.579.2.050846-88-7574Jzqbvgn65053959 2.16.840.1.431233.3.579.2.817541-68-4252Zjcnlqg33829806 2.16.840.1.546400.3.579.2.331401-30-1605Sbeunzs01210811 2.16.840.1.998717.3.579.2.719697-36-1948Sfvsmet2406650 2..0.1.068780.3.579.2.611360-57-1500Fjxurdo0586109 2..0.1.032947.3.579.2.659855-27-9983Zssjlsx3504876 2..840.1.084972.3.579.2.582008-96-3563Lihfyxv5115897 2.0.1.840569.3.579.2.142712-75-6283WiziTsaile Health CenterJPY136M55062 2.0.1.420402.10SyeaplvN4572260976 2.0.1.534339.38Lsngjya878816251017 7h6np14r-2d67-765i-u9u6-2q4w3w6843p2Bqnmgoh12012244 2.0.1.843125.3.579.2.531 Social History DateTypeDetailFacilityStart: 03-13-2022 End: 62-88-1658Bxu Assigned At [facility] [employer] Other Start: 07-18-2021 End: 73-46-3229Xtegcxe smoking status NHISNever smoked tobacco (finding) [facility]tontart: 1975 End: 07-64-1673Erg Assigned At [facility]: 01-01-2022 End: 72-08-6165Gkffqpa use and exposureSmokeless tobacco non-userBethesda North Hospitaltart: 01-01-2022 End: 43-41-7594Gtqrsaj intakeEx-drinker (finding)[facility]: 95-91-0329Hmv Assigned At BirthNot on fileBethesda North Hospitaltart: 61-40-1227Abgj. of Dermatology Start: 03-13-2022 End: 30-05-5303Hsuznxj of Social functionBethesda North Hospitaltart: 09-05-2021 End: 64-55-1422Kgglfvur Score (1-100), lower number is lower jmps13FxtavluxjBethesda North Hospitaltart: 24-01-6437Lmxfsp identityIdentifies as male gender (finding) [facility]: 55-06-9398Qcjibu orientationHeterosexual (finding) [facility]: 07-10-2023 End: 47-21-2803Vfethlqjc beverage intakeCurrent drinker of alcohol (finding)[facility] HealthcareHow often to you have a drink containing alcohol?Monthly or lessNOMS HealthcareHow many standard drinks containing alcohol do you have on a typical day?1 or 2N[facility]S HealthcareHow often do you have 6 or more drinks on 1 occasion? NeverNOMS HealthcareStart: 33-01-9324Cpvezlu Commentcaffeine: 1-2 cups per day [facility] HealthcareStart: 45-76-2790Ltzrmhy CommentNoneN[facility]S HealthcareSexMale (finding)[facility] Medical Equipment Procedure CodeEquipment CodeEquipment Original TextEquipment IdentifierDates Start: 08-08-2022 Goals DatePatient GoalDesired Activity/State Functional Status DateAssessmentResultFacilitySt. Francis Hospital Clinical Notes 01-19-2021 to 01-18-2025 Note Date & QrarDrrtHorotcvw31-07-1824 History of Present illness Narrative* Gregory Diehl, [...] right advanced flatfoot deformity and uses a Patterson Tract brace Pt also has left PT tendonitis [...] Past Medical History: Diagnosis Date Anxiety Asthma ([facility]) Ataxia CTS (carpal tunnel syndrome) Diabetes mellitus ([facility]) Headache Hypertension Insomnia Melanoma (HCC) Migraine Sleep [...] Insecurity: No Food Insecurity (06/20/2022) Received from [facility] Hunger Screening Within the past [...] tendon into retrocalcaneal bursa with negative palpable [place] MRI: PAST MR ankle left wo IV contrast Narrative: [facility] [place] [address] [place] [address] MRI Report Signed Patient: Donell Dumont MR#: [id number] : 1975 Acct:[id number] Age/Sex: 49 / M ADM Date: 12/29/24 Loc: [facility] Room: Type: [facility] Attending Dr: Gregory Diehl DPM Copies to: [...] Pereyra M.D. 12/29/2024 5:15 PM Dictation Location: [place] [address] Transcribed By: [facility] 12/29/24 3701 Dictated By: Maurice Pereyra II, MD 12/29/24 [...] Patient may continue with conservative treatments including mbhc-gsh-kqsidgl anti- inflammatories and other treatments suggested today. Patient may want to be s cheduled for surgical intervention in the near future. Gregory Diehl DPM documented in this encounterEllis Fischel Cancer CenterYdfdlakjlw01-25-6548 History of Present illness Narrative* Gregory Diehl [...] right advanced flatfoot deformity and uses a Patterson Tract brace Pt also has left PT tendonitis [...] Insecurity: No Food Insecurity (06/20/2022) Received from [facility] Hunger Screening Within the past [...] tendon into retrocalcaneal bursa with negative palpable [place] MRI: MR ankle left wo IV contrast Narrative: [facility] [place] [address] [place] [address] MRI Report Signed Patient: Donell Dumont MR#: [id number] : 1975 Acct:[id number] Age/Sex: 49 / M ADM Date: 12/29/24 Loc: [facility] Room: Type: [facility] Attending Dr: Gregory Diehl DPM Copies to: [...] Pereyra M.D. 12/29/2024 5:15 PM Dictation Location: [place] [address] Transcribed By: [facility] 12/29/241714 Dictated By: Maurice Pereyra [...] consented. Gregory Diehl DPM documented in this encounterEllis Fischel Cancer CenterLhwurlmhfd37-63-3793 Evaluation note* Diagnosis Onset Date Resolution Status Admit Date MARTHA (generalized anxiety disorder) acuteOct2024 8:27amOSA (obstructive sleep apnea)acuteOct2024 8:27amPrimary hypertensionacuteOct2024 8:27amScreening PSA (prostate specific antigen)acuteOct2024 8:27amThyroid noduleacute December 23, 2024 8:27amType 2 diabetes mellitus with hyperglycemiaacuteOct2024 8:27amWellness examinationacuteOct2024 8:27amMixed hyperlipidemiaacuteOct2024 8:13amPrimary hypertensionacuteOct2024 8:13am [facility] Work Phone: 1(452) 108-808009-11-2025 Instructions* Patient Instructions* Shyanne Rodríguez, ENGLISH COMPOSITION INSTRUCTOR.CREDIT COLLECTIONS REP - 11/19/2024 8:57 AM EDT -Start 1 capful of Miralax daily today -On Saturday drink one 10 ounce bottle of magnesium citrate with 2 tablets of Dulcolax as a mild cleanse. -Try to eat yogurt about 60 mins after taking the omeprazole in the morning. -Can add on 20mg Pepcid AC for any breakthrough reflux symptoms documented in this encounterSt. Francis Hospital09-11-2025 NoteHNO ID: [id number] Author: SHYANNE RODRÍGUEZ APRN.NIEVES Service: ? Author [...] Alcohol use: Not Currently Drug use: Not [facility] History of Present illness Narrative* Shyanne Rodríguez APRN.CREDIT COLLECTIONS REP - 11/19/2024 8:31 AM EDT DEPARTMENT OF [...] since increasing to the max acosta of [facility] for DM. Wt is stable. Failing 200mg [...] Drug use: Not Currently documented in this encounterSt. Francis Hospital09-02-2025 History of Present illness Narrative* Gregory [...] Insecurity: No Food Insecurity (06/20/2022) Received from [facility] Hunger Screening Within the past [...] palpation left Achilles tendon with negative palpable Hudson ASSESSMENT 1. Left Achilles tendinitis 2. Contracture [...] today Gregory Diehl DPM documented in this encounterBonnie Ville [address]Dopndjmptm53-58-4157 History of Present illness Narrative* Gregory Diehl, [...] Insecurity: No Food Insecurity (06/20/2022) Received from [facility] Hunger Screening Within the past [...] palpation left Achilles tendon with negative palpable Hudson ASSESSMENT 1. Other specified disorders of synovium, [...] tear Gregory Diehl DPM documented in this encounterEllis Fischel Cancer CenterHjlzrbevuy05-64-9244 History of Present illness Narrative* Gregoryellen Diehl, [...] Insecurity: No Food Insecurity (06/20/2022) Received from [facility] Hunger Screening Within the past [...] palpation left Achilles tendon with negative palpable Hudson ASSESSMENT 1. Other specified disorders of synovium, [...] MRI Gregory Diehl DPM documented in this encounterEllis Fischel Cancer CenterClmbqpfhsy72-95-4476 Evaluation note* Diagnosis Onset Date Resolution Status Admit Date Type 2 diabetes mellitus with hyperglyce richi acuteJuly 2024 8:46amContact dermatitisnoneactiveJuly 2024 8:46amGAD (generalized anxiety disorder)acuteOctober 2024 8:27amOSA (obstructive sleep apnea)acuteOctober 2024 8:27amPrimary hypertensionacuteOctober 2024 8:27amScreening PSA (prostate specific antigen)acuteOctober 2024 8:27amThyroid noduleacuteOctober 2024 8:27amType 2 diabetes mellitus with hyperglycemiaacuteOctober 2024 8:27amWellness examinationacuteOctober 2024 8:27am [facility] Work Phone: 1(780) 582-205107-22-2025 Evaluation note* Diagnosis Onset Date Resolution Status [...] with hyperglycemiaacuteOctober 2024 8:27amWellness examinationacuteOctober 2024 8:27am [facility] Work Phone: 1(704) 908-741406-13-2025 Evaluation note* Diagnosis Onset Date Resolution Status Admit Date MARTHA (generalized anxiety disorder) acuteJune 2024 8:26amOSA (obstructive sleep apnea)acuteJune 2024 8:26amPrimary hypertensionacuteJune 2024 8:26amThyroid noduleacuteJune 2024 8:26amType 2 diabetes mellitus with hyperglycemiaacuteJune 2024 8:26amPharyngitisacuteJuly 2024 2:57pm [facility] Work Phone: 1(255) 989-810006-13-2025 Evaluation note* Diagnosis Onset Date Resolution Status [...] 8:16amDDD (degenerative disc disease), cervicalchronicJuly 2024 8:16am [facility] Work Phone: 1(869) 348-890004-24-2025 History of Present illness Narrative* Gregory Diehl, [...] Insecurity: No Food Insecurity (06/20/2022) Received from [facility] Hunger Screening Within the past [...] Medrol pack Patient is to receive a Patterson Tract style brace AFO to the right foot [...] today. Gregory Diehl DPM documented in this encounterEllis Fischel Cancer CenterWuuxxahczm44-53-7758 History of Present illness Narrative* Gregory Diehl [...] Insecurity: No Food Insecurity (06/20/2022) Received from [facility] [employer] [facility], [facility] Hunger Screening Within the past [...] consented. This is the patients 1st injection Gregoyr Diehl DPM * Gregory Diehl DPM - [...] Insecurity: No Food Insecurity (06/20/2022) [facility] [employer] Hunger Screening Within the past 12 months [...] tylenol or Ibuprofen Discussed possible treatments including Patterson Tract style brace in the future Patient be placed on Medrol pack Gregory Diehl DPM documented in this encounterEllis Fischel Cancer CenterPearcsnqhc43-61-2206 History of Present illness Narrative* Gregory Diehl [...] Past Medical History: Diagnosis Date Anxiety Asthma (CMS/[facility]) Ataxia CTS (carpal tunnel syndrome) Diabetes mellitus (CMS/HCC) Headache Hypertension (CMS/HCC) Insomnia Melanoma (CMS/HCC) Migraine (CMS/[facility]) Sleep apnea Medications: Current Outpatient Medications: ALPRAZolam [...] Insecurity: No Food Insecurity (06/20/2022) [email or web address] Hunger Screening Within the past 12 [...] tylenol or Ibuprofen Discussed possible treatments including Patterson Tract style brace in the future Reviewed ultrasound [...] injection Gregory Diehl DPM documented in this encounterEllis Fischel Cancer CenterJfoirwwwut30-92-5614 History of Present illness Narrative* Leslye Cline [...] wrist extensors , wrist flexor , and prop and scenery maker strength 5/5. LUE strength deltoid , biceps , triceps , wrist extensors , wrist flexor , and prop and scenery maker strength 5/5. RLE strength iliopsoas, quadriceps, tibialis [...] knee reflex 1+. Mims's sign negative. Coordination: Gxqgrj-tc-bmwc testing normal. Rapid alternating movements are normal. Gait: Normal. Steady. Review and summary of old records: Dr. Luther consultation note from 12/29/2021 identified no radiculopathy with further review of MRI and no surgical interventional need. Recommendation for pain management. MRI lumbar spine at [facility] on 10/27/21: L5-S1: There is a circumferential [...] significant neural foraminal narrowing. MRI brain at [facility] [place] 10/02/21: No acute intracranial pathology or [...] NP [facility] documented in this encounterEllis Fischel Cancer [id number] Telephone encounter Note* Telephone Encounter - Jenna Nicholas - 03/31/2024 9:00 AM EST Patient is scheduled 04/06 in [place] [facility]l Cancer [id number] Miscellaneous Notes* Telephone Encounter - Jenna Nicholas - 03/31/2024 9:00 AM EST Patient is scheduled 04/06 in [place] with [facility] * Telephone Encounter - Gregory Hernandez MA - 03/31/2024 8:28 AM EST LMTCB x 2 * Telephone Encounter - Jaz Rocha - 03/30/2024 10:04 AM EST LMTCB x1 * Telephone Encounter - Helen Castellano MA - 03/30/2024 9:03 AM EST Please call and try to reschedule patient's follow up, missed in January. Emgality refill sent. documented in this encounterEllis Fischel Cancer [id number] Telephone encounter Note* Telephone Encounter - Gregory Hernandez MA - 03/31/2024 8:28 AM EST LMTCB x 2 [facility] Cancer [id number] Telephone encounter Note* Telephone Encounter - Jaz Rocha - 03/30/2024 10:04 AM EST LMTCB x1 Ellis F[facility]l Cancer [id number] Telephone encounter Note* Telephone Encounter - Helen Castellano MA - 03/30/2024 9:03 AM EST Please call and try to reschedule patient's follow up, missed in January. Emgality refill sent. Ellis Fischel Cancer [id number] NoteCT cervical spine on 01/24/2024 Provided History: [...] C6-C7 in satisfactory alignment Radiation Dose Estimate: CTDI(mGy):0.720305 / / / kVp:120.855233 / mAs:0.184249 / / / DLP(mGy- cm):2.654177Dlkn Part: Neck CTDI(mGy):31.070756 / / / kVp:140.538556 / mAs:215.128170 / / / DLP(mGy- cm):681.657255Ibdx Part: Final Dictated by: Bonnie Stokes MD Dictated DT/TM: 01.24.2024 1:33 pm Signed by: Bonnie Stokes MD Signed (Electronic Signature): 01.24.2024 1:42 pm (If Report Is Signed, Electronically Signed in Other Vendor System)[facility]11-15-2024 NoteProcedure: Intraoperative cervical spine fluoroscopy. Images: [...] Is Signed, Electronically Signed in Other Vendor System)[facility]10-07-2024 NoteHNO ID: [id number] Author: SHYANNE RODRÍGUEZ APRN.CREDIT COLLECTIONS REP Service: ? Author Type: Nurse Practitioner Type: Progress Notes Filed: 12/16/2023 11:30 Note Text: VIRTUAL VISIT FOLLOW UP I have communicated my name and active licensure. The patient's identity and physical location were verified at the time of this visit. Either the patient or their legal construction sales representative has been informed of the risks [...] AND MOOD: Normal Head/Ne (more content not included)...[facility]10-07-2024 History of Present illness Narrative* Shyanne Rodríguez, ENGLISH COMPOSITION INSTRUCTOR.CREDIT COLLECTIONS REP - 12/16/2023 11:06 AM EDT VIRTUAL VISIT FOLLOW UP I have communicated my name and active licensure. The patient's identity and physical location wereverified at the time of this visit. Either the patient or their legal construction sales representative has been informed of the risks [...] 2027 I spent more than 15 minutes hedx-vl-muho with the patient and over half the time was devoted to counseling and/or coordination of care. Shyanne Rodríguez APRN.CREDIT COLLECTIONS REP documented in this encounterSt. [facility] Hospital09-18-2024 [facility] History of Present illness Narrative* Sneha Ann [...] abnormal stress test and ECHO, now following [facility] cardio. He is to complete cardiac catheterization [...] , wrist extensors , wrist flexor , prop and scenery maker strength 5/5. LUE Strength deltoid , biceps , triceps , wrist extensors , wrist flexor , prop and scenery maker strength 5/5. RLE Strength illopsoas, quadriceps, tibialis [...] knee reflex 2+ Mims's Sign negative. Coordination: Auobzu-sf-mupc testing is normal Rapid alternating movements are normal Gait: Normal Review and summary of old records: Dr. Luther consultation note from 12/29/2021 identified no radiculopathy with further review of MRI and no surgical interventional need. Recommendation for pain management. [facility]: L5-S1: There is a circumferential [...] significant neural foraminal narrowing. MRI brain at [facility] on 10/02/21: No acute intracranial pathology or [...] Now status post surgical intervention (11/2022) in [place]. He reports symptoms have improved. PLAN: - Continue follow up with neurosurgery ([place]) as recommended - Continue follow up with [...] plan, and return instructions documented in this encounterEllis Fischel Cancer [id number] Telephone encounter Note* Telephone Encounter - Kylah Aj - 08/06/2023 1:58 PM EDT LVM for patient to contact [facility] to schedule. [facility]05-28-[facility] Miscellaneous Notes* Telephone Encounter - Kylah Aj - 08/06/2023 1:58 PM EDT LVM for patient to contact [facility] to schedule. * Telephone Encounter - Tiffani [...] by mouth once daily documented in this encounterSt. Francis Hospital05-24-2024 Telephone encounter Note * Telephone Encounter [...] take 1 capsule by mouth once daily [facility]12-26-2023 Evaluation note* Encounter Date Diagnosis Assessment [...] E11.65) Increases risk for more prolonged illness [facility] Other [id number] Evaluation note* Encounter Date Diagnosis Assessment Notes [...] use, the patient reduces the risk for MD, CVA, HTN, cardiac dysrhythmias and sudden cardiac [...] (current) use of insulin (ICD-10 - Z79.4) [facility] Other 12-18-2023 Evaluation note* Encounter Date Diagnosis Assessment Notes Treatment Notes Treatment Clinical Notes Feb, Type 2 diabetes mellitus with hy perglycemia (ICD-10 - E11.65) [facility] Other 12-15-2023 Evaluation note* Encounter Date Diagnosis [...] Call w/ any purulent drainage or fever [facility] Other 11-27-2023 Evaluation note* Encounter Date Diagnosis Assessment Notes Treatment Notes Treatment Clinical Notes Jan, Acute non-recurrent maxillary si nusitis (ICD-10 - J01.00) Instructed to use Robitussin or Mucinex for cough, saline or Flonase NS for congestion, Tylenol forpain and fever. Jan,Salpingitis of left eustachian tube (ICD-10 - H68.002)Flonase NS daily Valsalva maneuver to open ET. [facility] Other 09-20-2023 Evaluation note* Encounter Date Diagnosis [...] (current) use of insulin (ICD-10 - Z79.4) [facility] Other 08-15-2023 Evaluation note* Encounter Date Diagnosis [...] (current) use of insulin (ICD-10 - Z79.4) [facility] Other 07-07-2023 Evaluation note* Encounter Date Diagnosis [...] exercise for 30 minutes, 3-5 times weekly. [facility] Other 06-07-2023 Evaluation note* Encounter Date Diagnosis [...] (current) use of insulin (ICD-10 - Z79.4) [facility] Other 05-31-2023 Evaluation note* Encounter Date Diagnosis Assessment Notes Treatment Notes Treatment Clinical Notes July, Type 2 diabetes neel itus with hyperglycemia, without long-term current use of insulin (ICD-10 - E11.65) [facility] Other 05-30-2023 Evaluation note* Encounter Date Diagnosis [...] use, the patient reduces the risk for MD, CVA, HTN, cardiac dysrhythmias and sudden cardiac [...] be postponed until diabetes brought under control [facility] Other 03-09-2023 Miscellaneous Notes* Telephone Encounter - Shyanne Rodríguez APRN.NIEVES - 05/17/2022 4:06 PM EST LVM: updated on MRE which shows no signs of IBD. +constipation. L5-S1 degenerative narrowing in thespine and a 2cm benign R renal cyst. Advised follow up OV for ongoing symptoms. documented in this encounterSt. Francis Hospital02-20-2023 Miscellaneous Notes* Telephone Encounter - Julia Vee LPN - 04/30/2022 1:06 PM EST Patient calling the office requesting MRE order , Facesheet and OV note to be faxed to [facility]. I did fax everything over the patient is requesting. Faxed it to [phone]. I did receive confirmation that the fax did go through. The patient is aware he has to get the disk for Dr. Llamas to read the MRE. Patient verbalized good understanding. Julia Vee LPN documented in this encounterSt. Francis Hospital01-16-2023 Miscellaneous Notes* Telephone Encounter - Sarah [...] the office with Thanks documented in this encounterSt. Francis Hospital01-05-2023 Miscellaneous Notes* Telephone Encounter - Gita Hector RN - 03/15/2022 4:01 PM EST Results were reviewed with pt. He states the MRE is being scheduled out into June at [facility]. He is going to look for an appt out towards [place] if able. He will call office to [...] with Bryn. Carpenter cl documented in this encounterSt. Francis Hospital01-05-2023 Miscellaneous Notes* Telephone Encounter - Shyanne Rodríguez APRN.CREDIT COLLECTIONS REP - 03/15/2022 2:33 PM EST LVM: Updated [...] gastritis seen on EGD. documented in this encounterSt. Francis Hospital01-05-2023 Evaluation note* Encounter Date Diagnosis Assessment Notes Treatment Notes Treatment Clinical Notes Mar, Tubular adenoma of colon (ICD-10 - D12.6) [facility] Other 01-03-2023 Nurse Note* Francesca Darnell RN [...] Francesca Darnell RN In Department: AM[facility]ULATORY SURGERY [facility] Nurse Note* Francesca Darnell RN - [...] In Department: AMBULATORY SURGERY documented in this encounterSt. Francis Hospital01-03-2023 History and physical note * Vashti [...] MAC Additional Comments: None Vashti Llamas DO [facility]01-03-2023 History and physical note* Vashti Llamas [...] None Vashti Llamas DO documented in this encounterSt. Francis Hospital01-03-2023 Nurse Note* Lizbeth Vazquez RN - [...] Lizbeth Humphrey RN In Department: AM[facility]ULATORY SURGERY [facility]01-01-[facility] History general Narrative - Reported* Type Description Date Medical History Hypertension Surgical HistorycholecystectomySurgical Historyhernia repairSurgical History Inguinal Lymph node removedSurgical Historycolonoscopy, repeat /07/2021 Surgical HistoryEGD, repeat /2022Hospitalization HistorySee Above [facility] Other 01-01-2023 History general Narrative - Reported* Type Description Date Medical History Hypertension Medical HistoryOSASurgical HistorycholecystectomySurgical Historyhernia repair Surgical HistoryInguinal Lymph node removedSurgical Historycolonoscopy, repeat /urgical HistoryEGD, repeat /07/2021Hospitalization History See Above [facility] Other 01-01-2023 History general Narrative - Reported* Type Description Date Medical History Hypertension Medical HistoryOSASurgical HistorycholecystectomySurgical Historyhernia repair Surgical HistoryInguinal Lymph node removedSurgical Historycolonoscopy, repeat /urgical HistoryEGD, repeat /urgical HistoryLumbar laminectomy, fusion/2022Hospitalization HistorySee Above [facility] Other 12-27-2022 Miscellaneous Notes* Telephone Encounter - Olesya Betts Ma - 03/06/2022 1:11 PM EST Spoke with patient and confirmed appointment time and prep. documented in this encounterSt. Francis Hospital10-24-2022 Instructions* Patient Instructions* Paige Rizzo APRN.CNP - 01/01/2022 11:42 AM EDT PLAN -Schedule Colonoscopy/EGD MAC -Resume Omeprazole 40 mg once a day -Welchol trial for diarrhea at bedtime -Stool testing for bacteria/pancreatic insufficiency -DRIP DROP/ Liquid IV for hydration documented in this encounterSt. Francis Hospital10-24-2022 History of Present illness Narrative* Shyanne [...] than clears as well as with food. Correction his meal, he has to run to [...] Had dilation a few years ago in [place]. Repeat EGDearly 2021 showed no strictures, no [...] with bowels, helps with back pain Meds Qcfrtkh-olpwawhxx-xwbqaarku fix when traveling. overdoses on it, not [...] 01/01/2022 Time: 1:49 PM documented in this encounterSt. Francis Hospital10-21-2022 Evaluation note* Encounter Date Diagnosis Assessment [...] I see no evidence for surgical intervention [facility] Other 08-09-2022 Evaluation note* Encounter Date Diagnosis [...] - M47.22) Oct,Lumbar radiculopathy (ICD-10 - M54.16) [facility] Other 06-27-2022 Evaluation note* Encounter Date Diagnosis Assessment Notes Treatment Notes Treatment Clinical Notes Aug, Irritable bowel syndrome with di arrhea (ICD-10 - K58.0) PATIENT STATES THAT THESE ARE LOOSE AND GOING ABOUT 6-8 TIMES. PATIENT IS ADVISED THAT WE WILL REFER TO [facility] AT THIS TIME TO A SUB SPECIALIST. Aug,Gastritis (ICD-10 - K29.70) [facility] Other 06-22-2022 Note [id number]06-05-2022 Evaluation note* Encounter Date Diagnosis Assessment Notes Treatment Notes Treatment Clinical Notes Aug, Irritable bowel syndrome with di arrhea (ICD-10 - K58.0) [facility] Other 05-16-2022 Note [id number]03-10-2022 Evaluation note* Encounter Date Diagnosis Assessment Notes Treatment Notes Treatment Clinical Notes May, Irritable bowel syndrome with di arrhea (ICD-10 - K58.0) Increase Lomotil to tid May,iarrhea (ICD-10 - R19.7) [facility] Other 12-21-2021 Evaluation note* Encounter Date Diagnosis Assessment Notes Treatment Notes Treatment Clinical Notes Feb, Diarrhea (ICD-10 - R19.7) lomotil does help with urgency and total number of bowel movements. will order some labs at this time. [facility] Other 11-11-2021 Evaluation note* Encounter Date Diagnosis Assessment Notes Treatment Notes Treatment Clinical Notes Jan, Irritable bowel syndrome with di arrhea (ICD-10 - K58.0) Continue Lomotil Flex Sig Jan,Fecal urgency (ICD-10 - R15.2) [facility] Other Evaluation noteNo InformationNort [facility] Other Evaluation noteNo assessment information available [facility] Work Phone: Evaluation note* Diagnosis Diarrhea, unspecified type- Primary Esophageal dysphagia Dysphagia, pharyngoesophageal phase Irritable bowel syndrome with diarrhea Irritable bowel syndrome documented in this encounter [facility] noteN/ADept. of Dermatology Evaluation noteNort Fixational Other Evaluation note* Diagnosis Onset Date Resolution Status Abnormal stress test acuteDyspneaacuteElevated cholesterolacuteGAD (generalized anxiety disorder) acuteOSA (obstructive sleep apnea)acutePrimary hypertensionacuteType 2 diabetes mellitus with hyperglycemiaacuteAbnormal EKGacuteAbnormal stress testacuteChest painacuteDyspneaacuteMixed hyperlipidemiaacutePrimary hypertensionacute [facility] Work Phone: Evaluation note* Diagnosis Diarrhea, unspecified type Esophageal dysphagia Dysphagia, pharyngoesophageal phase documented in this encounter [facility] HospitalEvalubayhealth medical center note* Diagnosis Irritable bowel syndrome with constipation- Primary Irritable bowel syndrome Gastroesophageal reflux disease without esophagitis Esophageal reflux documented in this encounter [facility]* Diagnosis Onset Date Resolution Status Abnormal EKG acuteAbnormal stress testacuteChest painacuteDyspneaacuteMixed hyperlipidemia acutePrimary hypertensionacuteElevated cholesterolacuteGAD (generalized anxiety disorder)acuteOSA (obstructive sleep apnea)acutePrimary hypertensionacuteThyroid noduleacuteType 2 diabetes mellitus with hyperglycemiaacuteWellness examination acute [facility] Work Phone: Evaluation note* Diagnosis Migraine [...] left ear (CMS/HCC) documented in this encounter [facility] HealthcareEvaluation note* Diagnosis Chronic migraine without aura, not intractable, without status migrainosus (CMS/HCC) documented in this encounter [facility] HealthcareEvaluation note* Diagnosis Chronic migraine with aura without status migrainosus, not intractable ([facility]) - Primary DIANA (obstructive sleep apnea) Obstructive sleep apnea (adult) (pediatric) DDD (degenerative disc disease), cervical Degeneration of cervical intervertebral disc Carpal tunnel syndrome, left Carpal tunnel syndrome Chronic low back pain, unspecified back pain laterality, unspecified whether sciatica present Malignant melanoma of left ear ([facility]) documented in this encounter [facility] HealthcareEvaluation note* [...] Irritable bowel syndrome [facility]Evaluation [facility]* Diagnosis Left Achilles tendinitis documented [...] of right ankle documented in this encounter [facility] HealthcareHistory general Narrative - Reported* Type Description Date Medical History Hypertension Surgical HistorycholecystectomySurgical Historyhernia repairSurgical History Inguinal Lymph node removedHospitalization HistorySee Above [facility] Other History general Narrative - ReportedNoThomas [facility] [place] [facility] Other History of Present illness Narrative* Gregory [...] Insecurity: No Food Insecurity (06/20/2022) Received from [facility] Hunger Screening Within the past [...] palpation left Achilles tendon with negative palpable [place] ASSESSMENT 1. Left Achilles tendinitis 2. Contracture [...] cam walker MRI to be ordered at [facility] Gregory Diehl DPM documented in this encounterKansas City [facility] Medical Centerspital Discharge instructions Ambulatory Orders* Lipid Panel Time Frame: 01/06/25, Location: Determined By Patient [facility] Work Phone: Reason for referral (narrative)* Outpatient Procedure (Routine) - AuthorizedSpecialtyDiagnoses / ProceduresReferred By Contact [facility] Diagnoses Esophageal dysphagia Procedures EGD DIAGNOSTIC ESOPHAGOGASTRODUODENOSCOPY TRANSORAL DIAGNOSTIC Paige Rizzo, AAKASH.CREDIT COLLECTIONS REP [address] [place] [address] [facility] [place] [address] [place] [address] Referral IDStatusReasonStart DateExpiration DateVisits RequestedVisits [id number] Auto-Generated Referral * Outpatient Procedure (Routine) - AuthorizedSpecialtyDiagnoses / Procedures Referred By ContactReferred To [facility] Diagnoses Diarrhea, unspecified type Procedures COLONOSCOPY DIAGNOSTIC COLONOSCOPY FLX DX W/COLLJ SPEC WHEN Paige Prescott APRN.CNP [address] [place] [address] [place] [address] Referral IDStatusReasonStart DateExpiration DateVisits RequestedVisits [id number] Auto-Generated Referral [facility] HospitalReason for referral (narrative)* Name Reason for referral NA NA Dept. of Dermatology Reason for referral (narrative)* Outpatient Procedure (Routine) - ClosedSpecialtyDiagnoses / ProceduresReferred By ContactReferred To [facility] Diagnoses Esophageal dysphagia Procedures EGD DIAGNOSTIC ESOPHAGOGASTRODUODENOSCOPY TRANSORAL DIAGNOSTIC Paige Rizzo APRN.CNP [phone] [place] [address] Referral IDStatusReasonStart DateExpiration DateVisits RequestedVisits [id number] Auto-Generated Referral * Outpatient Procedure (Routine) - ClosedSpecialtyDiagnoses / ProceduresReferred By ContactReferred To [facility] Diagnoses Diarrhea, unspecified type Procedures COLONOSCOPY DIAGNOSTIC COLONOSCOPY FLX DX W/COLLJ SPEC WHEN PFRMPaige Park APRN.CREDIT COLLECTIONS REP [address] [phone] Digest[facility] Disease [place] [id number] [place] [id number] Referral IDStatusLolyasonStlowden DateExpiration DateVisits RequestedVisits [id number] Auto-Generated Referral [facility] for referral (narrative)No reason for referral information availableBrown Memorial Hospital Work Phone: [facility] for visit Narrative* Outpatient Procedure (Routine) - ClosedSpecialtyDiagnoses / ProceduresReferred By ContactReferred To St[facility] Diagnoses Esophageal dysphagia Procedures EGD DIAGNOSTIC ESOPHAGOGASTRODUODENOSCOPY TRANSORAL DIAGNOSTIC Paige Rizzo APRN.CREDIT COLLECTIONS REP [phone] [place] [id number] Referral IDStatusReasonStlowden DateExpiration DateVisits RequestedVisits [id number] Auto-Generated Referral [facility] for visit Narrative* Rehabilitation - Outpatient (Routine) - AuthorizedSpecialtyDiagnoses / ProceduresReferred By Contact Referred To ContactPhysical Therapy Diagnoses Left Achilles tendinitis Procedures [place] [facility] 60 MINUTES Gregory Diehl DPM [address] [address] Phone: tel: fax: Ilsa Pittman PT Referral IDStatusReasonStart DateExpiration DateVisits RequestedVisits [id number] Specialty Services Required /[id number] [facility] for visit Narrative* Rehabilitation - Outpatient (Routine) - AuthorizedSpecialtyDiagnoses / ProceduresReferred By ContactReferred To ContactPhysical Therapy Diagnoses Left Achilles tendinitis Procedures [place] [facility] MDM 60 MINUTES Gregory Diehl DPM [address] [address] Phone: tel: fax: Ilsa Pittman, CHAD Referral IDStatusReasonStart DateExpiration DateVisits RequestedVisits [id number] Specialty Services Required [facility] Healthcare Reason for Referral Reason EVAL AND TREAT Diagnosis 1 Irritable bowel synd haleigh with diarrhea (K58.0) Referral Organization [facility] Referring Provider First Name Alvino Referring Provider Last Name Klaudia Referring Provider Specialty Gastroenter ology Referred Organization [facility] Referred Address [address] [place], [place],[address] Referred Provider Specialty Gastroentero logy Referral Priority [...] am Type 2 diabetes mellitus with hyperglyce [facility] August 21, 2024 8:26am Pharyngitis September 23, [...] am Type 2 diabetes mellitus with hyperglyce [facility] August 21, 2024 8:26am Pharyngitis September 23, [...] Date Type 2 diabetes mellitus with hyperglyce [facility] October 07, 2024 8:46am Contact dermatitis October 07, 2024 8:46 am MARTHA (generalized anxiety disorder) Octob er 2024 8:27am DIANA (obstructive sleep apnea) December 232024 8:27am Primary hypertension December 23, 2024 8:27am Screening PSA (prostate specific antigen ) December 23, 2024 8:27am Thyroid nodule December 23, 2024 8 :27am Type 2 diabetes mellitus with hyperglyce [facility] December 23, 2024 8:27am Wellness examination December [...] :27am Type 2 diabetes mellitus with hyperglyce [facility] December 23, 2024 8:27am Wellness examination December [...] Ray , DOAttending ProviderActiveTeam MemberRelationship SpecialtyStart DateEnd [facility] Jack Ortega, DO [address] [place] [address] PCP - GeneralInternal Wnhophtu54/24/[address] [facility] [address] [address] ReferringGastroenterology09/05/21Team MemberRelationshipSpecialtyStart DateEnd Date Jack Ortega, DO [address] [place] [address] PCP - GeneralInternal Biahnqge95/24/[address] [place] [address] ReferringGastroenterology09/05/21Team MemberRelationshipSpecialtyStart DateEnd Date Jack Ortega, DO [address] [place] [address] PCP - GeneralInternal Jaukyabe11/24/[address] [facility] [address] [address] ReferringGastroenterology09/05/21Team MemberRelationshipSpecialtyStart DateEnd [facility] Jack Ortega, DO [address] [place] [address] PCP - GeneralInternal Wnylkbkj75/24/[address] [address] ReferringGastroenterology09/05/21 Team Status: Inactive Member Role Status Dates Jack Ortega DO Primary Care Provider Active NON STAFFAttending ProviderActiveTeam MemberRelationshipSpecialtyStart DateEnd Jack Olmedo DO [address], [place] [address] PCP - GeneralInternal Yvcrkmkl90/24/22 Alvino Rudolph [address] [address] ReferringGastroenterology09/05/21Team MemberRelationshipSpecialtyStart DateEnd Date Jack Ortega DO [address] [place] [address] PCP - GeneralInternal Tnheizoq26/24/22 Alvino Rudolph MD [address] [address] ReferringGastroenterology09/05/21 Team Status: Inactive Member Role Status [...] DateEnd Date Jack Ortega DO [address] [place] [address] PCP - GeneralInternal Fomwjwap02/24/22 Alvino Rudolph MD [address] [place] [address] [facility]erringS[facility]09/05/21Team MemberRelationshipSpecialtyStart DateEnd Date Jack Ortega DO [address] [place] [address] PCP - GeneralInternal Awamjwpm96/24/22 Alvino Rudolph MD [address] [place] [address] ReferringS[facility]09/05/21 Team Status: Inactive Member Role Status Dates [...] DateEnd Date Jack Ortega MD [address] [place] [address] PCP - GeneralInternal Medicine07/10/23Team MemberRelationshipSpecialtyStart Date End Date Jack Ortega MD [address] [place] [facility] [address] PCP - GeneralInternal Medicine07/10/23Team MemberRelationshipSpecialtyStart Date End Date Jack Ortega MD [address] [place] [facility] [address] PCP - GeneralInternal Medicine07/10/23Team MemberRelationshipSpecialtyStart Date End Date Jack Ortega MD [address] [place] [facility] [address] PCP - GeneralInternal Medicine07/10/23Team MemberRelationshipSpecialtyStart Date End Date Jack Ortega MD [address] [place] [facility] [address] PCP - GeneralInternal Medicine07/10/23Team MemberRelationshipSpecialtyStart Date End Date Jack Ortega MD [address] [place] [facility] [address] PCP - GeneralInternal Medicine07/10/23Team MemberRelationshipSpecialtyStart Date End Date Jack Ortega MD [address] [place] [facility] [address] PCP - GeneralInternal Medicine07/10/23Team MemberRelationshipSpecialtyStart Date End [...] 2024 End: September 23, 2024Gita Valentin APRN UTILITY MANAGER-CAttending ProviderActive Start: September 23, 2024 End: September 23, 2024 Team Status: Inactive Member Role Status Dates Jack Otrega DO Primary Care Provider Active Start: September [...] MemberRelationshipSpecialtyStart Date End Date Jack Ortega DO [address] [place] [address] PCP - GeneralInternal Medicine07/10/23Team MemberRelationshipSpecialtyStart Date End Date Jack Ortega, DO [address] [facility] [place] [address] PCP - GeneralInternal Medicine07/10/23Team MemberRelationshipSpecialtyStart Date End Date Jack Ortega DO [address] [facility] [place] [address] PCP - GeneralInternal Medicine07/10/23Team MemberRelationshipSpecialtyStart Date End Date Jack Ortega DO [address] [place] [facility] [address] PCP - GeneralInternal Medicine07/10/23Team MemberRelationshipSpecialtyStart Date End Date Jack Ortega DO [address] [place] [facility] [address] PCP - GeneralInternal Doepvjih53/24/22 Alvino Rudolph MD [address] [place] [address] ReferringTxstroenterology09/05/21Team MemberRelationshipSpecialtyStart DateEnd Date Jack Ortega DO [address] [place] [facility] [address] PCP - GeneralInternal Medicine07/10/23Team MemberRelationshipSpecialtyStart Date End Date Jack Ortega DO [address] [place] [facility] [address] PCP - GeneralInternal Medicine07/10/23Team MemberRelationshipSpecialtyStart Date End Date Jack Ortega, DO [address] [place] [facility] [address] PCP - GeneralInternal Medicine07/10/23Team MemberRelationshipSpecialtyStart Date End Date Jack Ortega, DO [address] [place] [facility] [address] PCP - GeneralInternal Medicine07/10/23Team MemberRelationshipSpecialtyStart Date End Date Jack Ortega DO [address] [place] [facility] [address] PCP - GeneralInternal Medicine07/10/23Team MemberRelationshipSpecialtyStart Date End Date Jack Ortega, DO [address] [place] [facility] [address] PCP - GeneralInternal Medicine07/10/23Team MemberRelationshipSpecialtyStart Date End Date Jack Ortega, DO [address] [place] [facility] [address] PCP - GeneralInternal Medicine07/10/23Team MemberRelationshipSpecialtyStart Date End Date Jack Ortega, DO [address] [place] [facility] [address] PCP - GeneralInternal Medicine07/10/23Team MemberRelationshipSpecialtyStart Date End Date Jack Ortega, DO [address] [place] [facility] [address] [facility]07/10/23Team MemberRelationshipSpecialtyStart Date End Date Jack Ortega DO [address] [place] [address] [facility] - [facility]07/10/23 Team Status: Inactive Member Role Status [...] DateEnd Date Jack Ortega DO [address] [place] [address] PCP - [facility]07/10/23Team MemberRelationshipSpecialtyStart Date End Date Jack Ortega DO [address] [place] [address] PCP - GeneralInternal Medicine07/10/23 Team Status: Inactive [...] DateEnd Date Jack Ortega DO [address] [place] [address] [facility] - [facility]07/10/23Team MemberRelationshipSpecialtyStart Date End Date Jack Ortega DO [address] [place] [address] [facility] - [facility]07/10/23Team MemberRelationshipSpecialtyStart Date End Date Jack Ortega DO [address] [place] [address] PCP - GeneralInternal Medicine07/10/23 Goals (unrecognized section [...] or prosecute any alcohol or drug abuse patient.[facility] Hospital[facility] the event this information is protected by the Federal Confidentiality of Alcohol and Drug Abuse Patient Records regulations: The Federal rules restrict any use of the information to criminally investigate or prosecute any alcohol or drug abuse patient.[facility] HospitalIn the event this information is protected by the Federal Confidentiality of Alcohol and Drug Abuse Patient Records regulations: The Federal rules restrict any use of the information to criminally investigate or prosecute any alcohol or drug abuse patient.[facility] HospitalIn the event this information is protected by the Federal Confidentiality of Alcohol and Drug Abuse Patient Records regulations: The Federal rules restrict any use of the information to criminally investigate or prosecute any alcohol or drug abuse patient.[facility] HospitalIn the event this information is protected by the Federal Confidentiality of Alcohol and Drug Abuse Patient Records regulations: The Federal rules restrict any use of the information to criminally investigate or prosecute any alcohol or drug abuse patient.[facility] HospitalIn the event this information is protected by the Federal Confidentiality of Alcohol and Drug Abuse Patient Records regulations: The Federal rules restrict any use of the information to criminally investigate or prosecute any alcohol or drug abuse patient.[facility] HospitalIn the event this information is protected by the Federal Confidentiality of Alcohol and Drug Abuse Patient Records regulations: The Federal rules restrict any use of the information to criminally investigate or prosecute any alcohol or drug abuse patient.[facility] HospitalIn the event this information is protected by the Federal Confidentiality of Alcohol and Drug Abuse Patient Records regulations: The Federal rules restrict any use of the information to criminally investigate or prosecute any alcohol or drug abuse patient.[facility] HospitalIn the event this information is protected by the Federal Confidentiality of Alcohol and Drug Abuse Patient Records regulations: The Federal rules restrict any use of the information to criminally investigate or prosecute any alcohol or drug abuse patient.[facility] HospitalIn the event this information is protected by the Federal Confidentiality of Alcohol and Drug Abuse Patient Records regulations: The Federal rules restrict any use of the information to criminally investigate or prosecute any alcohol or drug abuse patient.[facility] HospitalIn the event this information is protected by the Federal Confidentiality of Alcohol and Drug Abuse Patient Records regulations: The Federal rules restrict any use of the information to criminally investigate or prosecute any alcohol or drug abuse patient.[facility] HospitalIn the event this information is protected by the Federal Confidentiality of Alcohol and Drug Abuse Patient Records regulations: The Federal rules restrict any use of the information to criminally investigate or prosecute any alcohol or drug abuse patient.[facility] HospitalIn the event this information is protected by the Federal Confidentiality of Alcohol and Drug Abuse Patient Records regulations: The Federal rules restrict any use of the information to criminally investigate or prosecute any alcohol or drug abuse patient.[facility] HospitalIn the event this information is protected by the Federal Confidentiality of Alcohol and Drug Abuse Patient Records regulations: The Federal rules restrict any use of the information to criminally investigate or prosecute any alcohol or drug abuse patient.[facility] (unrecognized sect ion and content) No Status Records FoundNo Status Records FoundNo Status Records FoundNo Status Records FoundNo Status Records FoundNo Status Records FoundNo Status Records FoundNo Status Records Found INFORMATION SOURCE (unrecogn ized section and content) DATE CREATED AUTHOR 03/03/2022 [facility] DATE CREATED AUTHOR AUTHOR'S ORGANIZ ATION 08/18/2022 [facility] DATE CREATED AUTHOR AUTHOR'S ORGANIZ ATION 09/05/2022 [facility] [place] DATE CREATED AUTHOR AUTHOR'S ORGANIZ ATION 04/27/2024 [facility] DATE CREATED AUTHOR AUTHOR'S ORGANIZ ATION 06/04/2024 [facility] DATE CREATED AUTHOR AUTHOR'S ORGANIZ ATION 11/21/2024 [facility] DATE CREATED AUTHOR AUTHOR'S ORGANIZ ATION 12/30/2024 [facility] DATE CREATED AUTHOR AUTHOR'S ORGANIZ ATION 01/19/2025 [facility] EPIC FOR RECORDS PERTAINING TO [...] BE BASED ON THE PRIMARY CLINICAL RECORDS. [facility], [facility]. provides no warranty or guarantee of the accuracy or completeness of information in this document.
--- NOTE | 2025-02-09 10:00 | US_ITS ---
The [address] [address] Patient Name: DONELL ANDRE MRN: [id number] date: 1975 Sex: M Assigned Patient Location: [place] Current Patient Location: [place] Accession/Order Number: [id number] Exam Date: 02/09/2025 10:02 Report Date: 02/09/2025 10:47 At the request of: CATARINO ORTEGA DO Procedure: US renal BI BILATERAL RENAL AND BLADDER ULTRASOUND CLINICAL HISTORY: Follow-up right kidney nodularity on CT COMPARISON: CT 02/01/2025 Estimation of renal size is approximately 11.1 cm on the right and 12.7 cm on the left. No shadowing calculi or hydronephrosis are identified. An exophytic nodule is present at the midpole of the right kidney measuring 10 x 16 x 15 mm. This correlates with the CT finding . It appears cystic though possibly mildly complicated. There is no perinephric fluid. The urinary bladder is is not well distended with a volume of 25 mL. No obvious contour or intraluminal abnormalities are seen. US/US renal BI IMPRESSION: NO OBSTRUCTIVE UROPATHY. SUSPECTED MILDLY COMPLICATED RIGHT RENAL CYST. FOLLOW-UP COULD BE OBTAINED TO ASSESS STABILITY. Impression dictated by: Maria Alejandra Saldaña M.D. 02/09/2025 10:47 AM Dictation Location: [place] [address] Electronically authenticated by: [id number] Y Date: 02/09/2025 10:47
== END 2025-02-09 09:52 | disposition home or self-care (01) ==
LOC: US 09:51
PROVIDERS: PCP Internal Medicine; Visit Provider Internal Medicine
DX: N28.89 Other specified disorders of kidney and ureter (principal)
CPT/HCPCS: 76775